=== PATIENT | female | born 1965 | race Caucasian/White ===

== ENCOUNTER 2018-01-07 17:03 | Emergency (ER) | payer OTHER, SELFPAY ==
[2018-01-07] VITALS (23 sets, daily range): BP systolic 142–180; BP diastolic 78–114; PULSE 68–151; RESP 17–37; TEMP 37; O2SAT 88–98
--- NOTE | 2018-01-07 17:16 | DI.RAD_ITS ---
SYMPTOM/DIAGNOSIS: TACHYCARDIA, CHEST PRESSURE PA AND LATERAL CHEST: The heart is normal in size. The lungs are clear. The mediastinal structures and pleura appear intact. CONCLUSION: Normal chest. No evidence of acute cardiopulmonary disease.
[2018-01-07 17:28] LABS: Abs Immature Grans 0.03 k/cumm (0.0-0.09); Absolute Basophil Count 0.01 k/cumm (0.0-0.2); Absolute Eosinophil Count 0.15 k/cumm (0.0-0.7); Absolute Lymphocyte Count 1.85 k/cumm (1.2-3.4); Absolute Monocyte Count 0.59 k/cumm (0.11-0.7); Basophils % 0.1; Eosinophils % 1.9; HCT 41.2 % (36.0-46.0); HGB 14.5 g/dL (12.0-15.5); Immature Grans % 0.4; Mean Corp. HGB Concentration 35.2 g/dL (32.0-36.0); Mean Corpuscular Volume 88.2 fL (80-95); Mean Platelet Volume 9.1 fL (8.0-11.0); Monocytes % 7.3; Neutrophils % 67.3; Platelet Count 236 x1000/uL (130-400); RBC 4.67 m/cumm (4.00-5.20); RBC Distribution Width 13.2 % (11.7-14.6); White Blood Cell Count 8.03 k/cumm (4.4-10.8)
[2018-01-07] MEDS: Normal Saline 1,000 ML 125 ML IV (17:29)
--- NOTE | 2018-01-07 17:29 | W.ED.GENAD ---
Discharge Plan Disposition Patient Disposition: HOME Condition: Serious Discharge Details Chief Complaint: Palpitatns Clinical Impression: Atrial fibrillation Primary Care Provider: Jasmyne Poe ED Provider: Anju You Home Meds and New Rx's Prescriptions: New diltiazem HCl 120 mg capsule,extended release 24 hr 120 mg PO DAILY Qty: 20 RF: 0 Continue magnesium oxide 250 MG tablet 250 mg PO DAILY RF: 0 cholecalciferol (vitamin D3) [Vitamin D3] 2,000 UNIT capsule 2,000 unit PO DAILY RF: 0 jryiguecczbc-lizj-cvseu acid [Daily Multiple] 1 EACH tablet 1 ea PO DAILY RF: 0 melatonin-pyridoxine HCl (B6) 1 EACH tablet 1 ea PO HS RF: 0 levothyroxine 50 MCG tablet 50 mcg PO DAILY Qty: 90 RF: 4 diphenhydramine HCl [Benadryl] 25 MG capsule 25 mg PO HS RF: 0 sertraline 50 MG tablet 50 mg PO DAILY Qty: 90 RF: 0 ibuprofen 800 MG tablet 800 mg PO PRN PRNRF: 0 Discontinued aspirin [Aspir-81] 81 mg Tablet,Delayed Release (Dr/Ec) 81 mg PO DAILY RF: 0 Discharge Instructions Instructions: Atrial Fibrillation (ED) Additional Instructions: Encourage hydration. Take diltiazem as prescribed. Please begin full dose aspirin daily. Please follow-up with primary care tomorrow for referral to cardiology. Keep Zio patch on as instructed by respiratory therapy. If he developed chest pain, shortness of breath, lightheadedness, headache, or other new/worsening symptoms please seek care urgently once again. Referrals: Jasmyne Poe [Primary Care Provider] - Discharge Data Discharge Date/Time-TO BE ENTERED AT DEPARTURE: 01/07/18 19:51 Medical Decision Making <Pablo Ruff MD - Last Filed: 01/07/18 17:56> ECG Data Attestation: I personally reviewed and interpreted this ECG (s) as follows: Prior ECG tracings: not available for review Interpretation: 1st ekg shows undetermined tachycardia, rate of 150, normal axis, nonspecific st t wave changes 2nd ekg shows normal sinus rhythm, normal axis, normal pr, normal qrs and qt and no acute st t wave changes <MOSHE Valdez - Last Filed: 01/08/18 14:38> MDM Narrative Medical decision making narrative: Patient presents today with cc of tachycarida with irregular rhythm as demonstrated on rhythm strip she brings to department. Patient current rate is 151 although while evaluating her this fluctuates widely. EKG was immediately obtained by nrusing staff. REviewed by Dr. Ruff. Patient is resting comfortably, reports that she has no symptoms at this time. States that she can occassionaly experience chest 'heaviness' but has no CP or SOB. Reports that typically she is very active and is able to go up and down multiple flights of stairs without symptoms. However, whe she does have symptoms she reports that she has increased SOB. BP 180/100, patient denies hypertension at baseline. Nursing staff is obtaining IV access. Patient reports taht she has tried vagal maneauvers prior to arrival. Discussed case with Dr. Ruff while reviewing EKG. Difficut to determine a fib vs. SVT. However, on exam, she sounds very irregular making my diagnosis point toward intermittent atrial fibrillation. We discussed treatment options, patient will be given 15mg of Diltiazem. While discussing plan with the patient she briefly came out of the tachy rhythm but it quickly started again. She reports that when she went back into the rhythm, she experienced the chest 'heaviness' once again. While on the monitor she also reports that this symptom seems to be linked with sudden acceleration in rate. Patient received Diltiazem and responded very quickly, is now in a NSR with rate in the 70s. Repeat EKG obtained, reviewed by Dr. Ruff again who advised NSR. Laboratory evaluation without abnormality. Troponin <0.02. No leukocytosis. TSH is elevated, reflexed to free T4 which was within normal range. Discussed with Dr. Ruff, given the length of symptoms, advised no repeat troponin is warranted particularly as she is not experiencing CP and does not typically experience exertional dyspnea. CXR reviewed by radiologist, they advise no acute cardiopulmonary process noted. Discussed findings with the patient. She continues to be in NSR and reports feeling well, has remained asymptomatic. We discussed treatment options as length. She is in agreement with begining oral 120mg of Diltiazem daily. Will place raudel Zio patch for continued monitoring. This was placed by respiratory therapy. Patient was givne 325mg of ASA. We discussed anticoagulation at length. REviewed literature. Used [id number] score which patient scored a 1 for as she is female. Also reviewed HAS-BLED score. Literature reports that with her scores, there is a 0.6 per 100 persons with risk of clot, 1.1 per 100 persons with risk of bleed. We discussed multiple options ranging from full anticoagulation to daily ASA. Also discussed short term anticoagulation until we can ensure rhythm control. She is primarily concerned with bleeding risk and prefers 325mg ASA daily. We discussed risks/benefits of further treatment in length. She is well aware of risks and is able to have good conversation about the different options, prefers to use 325mg of ASA daily. ADvised on new/worsening symptoms and when to seek care urgently once again. PCP in is [facility] which is where she prefers to f/u with cardiology. She will contact PCP tomorrow to request referral for cardiology. She was given strict return precautions. Oral dilt and ASA given prior to discharge. She will continue with nightly dosing. All of her questions and concerns were addressed, she is in agreement wiht this plan. Lab Data Lab Results 01/07/18 Range/Units 17:15 WBC 8.03 (4.4-10.8) k/cumm RBC 4.67 (4.00-5.20) m/cumm Hgb 14.5 (12.0-15.5) g/dL Hct 41.2 (36.0-46.0) % MCV 88.2 (80-95) fL MCH 31.0 (27.0-33.0) pg MCHC 35.2 (32.0-36.0) g/dL RDW 13.2 (11.7-14.6) % Plt Count 236 (130-400) x1000/uL MPV 9.1 (8.0-11.0) fL Immature Gran % 0.4 Neutrophils % 67.3 Lymphocytes % 23.0 Monocytes % 7.3 Eosinophils % 1.9 Basophils % 0.1 Absolute Neutrophils 5.40 (1.2-6.7) k/cumm Absolute Lymphocytes 1.85 (1.2-3.4) k/cumm Absolute Monocytes 0.59 (0.11-0.7) k/cumm Absolute Eosinophils 0.15 (0.0-0.7) k/cumm Absolute Basophils 0.01 (0.0-0.2) k/cumm HPI - General Adult <Pablo Ruff MD - Last Filed: 01/07/18 17:56> General Date/Time Provider Initiated Documentation: 01/07/18 17:06. Related Data Home Medications Medication Instructions Recorded Confirmed ibuprofen 800 mg PO PRN PRN 12/12/13 01/07/18 cholecalciferol (vitamin D3) 2,000 unit PO DAILY 09/05/14 01/07/18 [Vitamin D3] magnesium oxide 250 mg PO DAILY 09/05/14 01/07/18 melatonin-pyridoxine HCl (B6) 1 ea PO HS 09/05/14 01/07/18 yaxzncndiuxf-nbws-akdqf acid 1 ea PO DAILY 09/05/14 01/07/18 [Daily Multiple] levothyroxine 50 mcg PO DAILY #90 tab 10/02/15 01/07/18 diphenhydramine HCl [Benadryl] 25 mg PO HS 12/19/15 01/07/18 Previous Rx's Medication Instructions Recorded sertraline 50 mg PO DAILY #90 tab-cap 10/08/17 diltiazem HCl 120 mg PO DAILY #20 cap 01/07/18 Allergies Allergy/AdvReac Type Severity Reaction Status Date / Time Penicillins Allergy Intermediate Anaphylaxsi Unverified 01/07/18 17:17 s Sulfa (Sulfonamide Allergy Intermediate Skin Rash Unverified 01/07/18 17:17 Antibiotics) <MOSHE Valdez - Last Filed: 01/08/18 14:38> General Mode of arrival: ambulatory. Limitations to Documentation: no limitations. Information obtained by: patient. HPI Narrative: Patient presents today with chief complaint of tachycardia and 'chest heaviness'. States that she has had intermitent episodes of this over the past few months. 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 States that it has woken her at night. Reports that with time it typical self resolves. States that today, while driving, she had a sudden onset of symptoms. Denies palpitations. No CP. Denies SOB at rest or with the heaviness but notes taht she has increased SOB with exertion, such as going up stairs, when her symptoms are present. States that after the onset of symptoms today she returned to work where she preformed a self test rhythm strip and noted a tachy irregular rhythm. States that at this times she is feeling well, completely asymptomatic. States she has had history of 'anxiety' feeling that typically manifest in her chest. Has been tachy in the past which lead her to having cardiac evaluation with echo. Reports that her testing had been negative, it has been several years since her last testing. No history of AL. Reports her only health issue as hypothyroidism. General Stated Complaint: Palpitatns HALEY: 2 <MOSHE Valdez - Last Filed: 01/08/18 14:38> Constitutional Reports as per HPI, Denies chills, Denies fatigue, Denies fever(s), Denies headache(s), Denies malaise and Denies poor appetite ENT Denies headache(s) Cardiovascular Reports as per HPI, Denies chest pain, Denies chest pain at rest, Denies chest pain with activity, Denies diaphoresis, Denies syncope, Reports rapid heart rate, Denies pedal edema, Denies edema, Reports irregular heart rhythm, Denies leg edema, Denies radiating jaw, neck or arm pain, Denies palpitations, Denies dyspnea and Reports dyspnea on exertion Respiratory Denies cough, Denies dyspnea, Reports dyspnea on exertion and Denies wheezing Gastrointestinal Denies change in stool character, Denies nausea and Denies vomiting Musculoskeletal Denies back pain and Denies tingling Integumentary/Breasts Denies rash Neurologic Denies abnormal speech, Denies syncope, Denies headache(s), Denies focal weakness and Denies tingling Endocrine Denies fatigue and Denies palpitations Allergic/Immunologic Denies wheezing <MOSHE Valdez - Last Filed: 01/08/18 14:38> Const General: cooperative, healthy appearing, comfortable, no acute distress, well developed and well groomed Nutritional Appearance: average body habitus and well nourished Orientation: alert and awake HENWI Head: normal to inspection Mouth: moist mucous membranes Chest Chest: normal inspection of the chest, no tenderness and No rash Resp Effort & Inspection: normal respiratory effort, able to speak in complete sentences and no respiratory distress Auscultation: clear to auscultation bilaterally, no rales, no rhonchi and no wheezes Cardio Rate: tachycardic Rhythm: abnormal rhythm irregularly irregular Heart Sounds: S1 normal, S2 normal, no murmurs and no rubs Bruits: no abdominal aortic bruits Pulses: radial pulses present, popliteal pulses present and dorsalis pedis pulses present GI Inspection: normal to inspection Palpation: no guarding, not rigid and nontender Skin General skin exam: no rashes or lesions noted Lesions: no lesions Rashes: no rashes Neuro General: alert and awake Cognition: normal cognition Speech: speech normal Gait: normal gait Extrem General: no pedal edema, no calf tenderness and normal gait Psych Appearance: grossly normal and well kempt Mental Status: mental status grossly normal Speech and Movement: speech and movement normal <MOSHE Valdez - Last Filed: 01/08/18 14:38> Vital Signs Temperature 37.0 C 01/07/18 17:09 Pulse 151 H 01/07/18 17:09 Respiratory Rate 18 01/07/18 17:09 Blood Pressure 180/100 H 01/07/18 17:09 Pulse Oximetry 97 01/07/18 17:09 Temperature 37.0 C 01/07/18 17:09 Pulse 151 H 01/07/18 17:09 Respiratory Rate 18 01/07/18 17:09 Blood Pressure 180/100 H 01/07/18 17:09 Pulse Oximetry 97 01/07/18 17:09 Lab/Test Results Lab/Test Results: Laboratory Tests 01/07/18 17:15 WBC 8.03 RBC 4.67 Hgb 14.5 Hct 41.2 MCV 88.2 MCH 31.0 MCHC 35.2 RDW 13.2 Plt Count 236 MPV 9.1 Immature Gran % 0.4 Neutrophils % 67.3 Lymphocytes % 23.0 Monocytes % 7.3 Eosinophils % 1.9 Basophils % 0.1 Absolute Neutrophils 5.40 Absolute Lymphocytes 1.85 Absolute Monocytes 0.59 Absolute Eosinophils 0.15 Absolute Basophils 0.01 Lab Results 01/07/18 Range/Units 17:15 WBC 8.03 (4.4-10.8) k/cumm RBC 4.67 (4.00-5.20) m/cumm Hgb 14.5 (12.0-15.5) g/dL Hct 41.2 (36.0-46.0) % MCV 88.2 (80-95) fL MCH 31.0 (27.0-33.0) pg MCHC 35.2 (32.0-36.0) g/dL RDW 13.2 (11.7-14.6) % Plt Count 236 (130-400) x1000/uL MPV 9.1 (8.0-11.0) fL Immature Gran % 0.4 Neutrophils % 67.3 Lymphocytes % 23.0 Monocytes % 7.3 Eosinophils % 1.9 Basophils % 0.1 Absolute Neutrophils 5.40 (1.2-6.7) k/cumm Absolute Lymphocytes 1.85 (1.2-3.4) k/cumm Absolute Monocytes 0.59 (0.11-0.7) k/cumm Absolute Eosinophils 0.15 (0.0-0.7) k/cumm Absolute Basophils 0.01 (0.0-0.2) k/cumm <MOSHE Valdez - Last Filed: 01/08/18 14:38> Critical Care Time: Yes Total Critical Care Time: 30 (min)
[2018-01-07 17:49] LABS: ALT 30 U/L (12-78); AST 17 U/L (15-37); Albumin 4.1 g/dL (3.4-5.0); Alkaline Phosphatase 94 U/L (46-116); BUN 18 mg/dL (7-18); Bilirubin, Total 0.4 mg/dL (0.2-1.0); CREATININE 0.61 mg/dL (0.55-1.02); Calcium 8.6 mg/dL (8.5-10.1); Chloride 103 mmol/L (98-107); Glucose 122 mg/dL (70-100); Magnesium 1.9 mg/dL (1.8-2.4); Potassium 3.5 mmol/L (3.5-5.1); Sodium 141 mmol/L (136-145); TSH (W/Ref FT4) 5.76 uIU/mL (0.358-3.74); Total Protein 7.7 g/dL (6.4-8.2); Troponin I < 0.02 ng/mL (0.00-0.06)
--- NOTE | 2018-01-07 17:56 | ED.GENADUL_ITS ---
Discharge Plan Disposition Patient Disposition: HOME Condition: Serious Discharge Details Chief Complaint: Palpitatns Clinical Impression: Atrial fibrillation Primary Care Provider: Jasmyne Poe ED Provider: Anju You Home Meds and New Rx's Prescriptions: New diltiazem HCl 120 mg capsule,extended release 24 hr 120 mg PO DAILY Qty: 20 RF: 0 Continue magnesium oxide 250 MG tablet 250 mg PO DAILY RF: 0 cholecalciferol (vitamin D3) [Vitamin D3] 2,000 UNIT capsule 2,000 unit PO DAILY RF: 0 znqethuzevxw-umiy-jvtzb acid [Daily Multiple] 1 EACH tablet 1 ea PO DAILY RF: 0 melatonin-pyridoxine HCl (B6) 1 EACH tablet 1 ea PO HS RF: 0 levothyroxine 50 MCG tablet 50 mcg PO DAILY Qty: 90 RF: 4 diphenhydramine HCl [Benadryl] 25 MG capsule 25 mg PO HS RF: 0 sertraline 50 MG tablet 50 mg PO DAILY Qty: 90 RF: 0 ibuprofen 800 MG tablet 800 mg PO PRN PRNRF: 0 Discontinued aspirin [Aspir-81] 81 mg Tablet,Delayed Release (Dr/Ec) 81 mg PO DAILY RF: 0 Discharge Instructions Instructions: Atrial Fibrillation (ED) Additional Instructions: Encourage hydration. Take diltiazem as prescribed. Please begin full dose aspirin daily. Please follow-up with primary care tomorrow for referral to cardiology. Keep Zio patch on as instructed by respiratory therapy. If he developed chest pain, shortness of breath, lightheadedness, headache, or other new/worsening symptoms please seek care urgently once again. Referrals: Jasmyne Poe [Primary Care Provider] - Discharge Data Discharge Date/Time-TO BE ENTERED AT DEPARTURE: 01/07/18 19:51 Medical Decision Making <Pablo Ruff MD - Last Filed: 01/07/18 17:56> ECG Data Attestation: I personally reviewed and interpreted this ECG (s) as follows: Prior ECG tracings: not available for review Interpretation: 1st ekg shows undetermined tachycardia, rate of 150, normal axis , nonspecific st t wave changes 2nd ekg shows normal sinus rhythm, normal axis, normal pr, normal qrs and qt and no acute st t wave changes <MOSHE Valdez - Last Filed: 01/08/18 14:38> MDM Narrative Medical decision making narrative: Patient presents today with cc of tachycarida with irregular rhythm as demonstrated on rhythm strip she brings to department. Patient current rate is 151 although while evaluating her this fluctuates widely. EKG was immediately obtained by nrusing staff. REviewed by Dr. Ruff. Patient is resting comfortably, reports that she has no symptoms at this time. States that she can occassionaly experience chest 'heaviness' but has no CP or SOB. Reports that typically she is very active and is able to go up and down multiple flights of stairs without symptoms. However, whe she does have symptoms she reports that she has increased SOB. BP 180/100, patient denies hypertension at baseline. Nursing staff is obtaining IV access. Patient reports taht she has tried vagal maneauvers prior to arrival. Discussed case with Dr. Ruff while reviewing EKG. Difficut to determine a fib vs. SVT. However, on exam, she sounds very irregular making my diagnosis point toward intermittent atrial fibrillation. We discussed treatment options, patient will be given 15mg of Diltiazem. While discussing plan with the patient she briefly came out of the tachy rhythm but it quickly started again. She reports that when she went back into the rhythm, she experienced the chest 'heaviness' once again. While on the monitor she also reports that this symptom seems to be linked with sudden acceleration in rate. Patient received Diltiazem and responded very quickly, is now in a NSR with rate in the 70s. Repeat EKG obtained, reviewed by Dr. Ruff again who advised NSR. Laboratory evaluation without abnormality. Troponin <0.02. No leukocytosis. TSH is elevated, reflexed to free T4 which was within normal range. Discussed with Dr. Ruff, given the length of symptoms, advised no repeat troponin is warranted particularly as she is not experiencing CP and does not typically experience exertional dyspnea. CXR reviewed by radiologist, they advise no acute cardiopulmonary process noted. Discussed findings with the patient. She continues to be in NSR and reports feeling well, has remained asymptomatic. We discussed treatment options as length. She is in agreement with begining oral 120mg of Diltiazem daily. Will place raudel Zio patch for continued monitoring. This was placed by respiratory therapy. Patient was givne 325mg of ASA. We discussed anticoagulation at length. REviewed literature. Used [id number] score which patient scored a 1 for as she is female. Also reviewed HAS-BLED score. Literature reports that with her scores, there is a 0.6 per 100 persons with risk of clot, 1.1 per 100 persons with risk of bleed. We discussed multiple options ranging from full anticoagulation to daily ASA. Also discussed short term anticoagulation until we can ensure rhythm control. She is primarily concerned with bleeding risk and prefers 325mg ASA daily. We discussed risks/benefits of further treatment in length. She is well aware of risks and is able to have good conversation about the different options, prefers to use 325mg of ASA daily. ADvised on new/worsening symptoms and when to seek care urgently once again. PCP in is [facility] which is where she prefers to f /u with cardiology. She will contact PCP tomorrow to request referral for cardiology. She was given strict return precautions. Oral dilt and ASA given prior to discharge. She will continue with nightly dosing. All of her questions and concerns were addressed, she is in agreement wiht this plan. Lab Data Lab Results 01/07/18 Range/Units 17:15 WBC 8.03 (4.4-10.8) k/cumm RBC 4.67 (4.00-5.20) m/cumm Hgb 14.5 (12.0-15.5) g/dL Hct 41.2 (36.0-46.0) % MCV 88.2 (80-95) fL MCH 31.0 (27.0-33.0) pg MCHC 35.2 (32.0-36.0) g/dL RDW 13.2 (11.7-14.6) % Plt Count 236 (130-400) x1000/uL MPV 9.1 (8.0-11.0) fL Immature Gran % 0.4 Neutrophils % 67.3 Lymphocytes % 23.0 Monocytes % 7.3 Eosinophils % 1.9 Basophils % 0.1 Absolute Neutrophils 5.40 (1.2-6.7) k/cumm Absolute Lymphocytes 1.85 (1.2-3.4) k/cumm Absolute Monocytes 0.59 (0.11-0.7) k/cumm Absolute Eosinophils 0.15 (0.0-0.7) k/cumm Absolute Basophils 0.01 (0.0-0.2) k/cumm HPI - General Adult <Pablo Ruff MD - Last Filed: 01/07/18 17:56> General Date/Time Provider Initiated Documentation: 01/07/18 17:06 . Related Data Home Medications Medication Instructions Recorded Confirmed ibuprofen 800 mg PO PRN PRN 12/12/13 01/07/18 cholecalciferol (vitamin D3) 2,000 unit PO DAILY 09/05/14 01/07/18 [Vitamin D3] magnesium oxide 250 mg PO DAILY 09/05/14 01/07/18 melatonin-pyridoxine HCl (B6) 1 ea PO HS 09/05/14 01/07/18 zorcnyhekrqg-zrad-mvtka acid 1 ea PO DAILY 09/05/14 01/07/18 [Daily Multiple] levothyroxine 50 mcg PO DAILY #90 tab 10/02/15 01/07/18 diphenhydramine HCl [Benadryl] 25 mg PO HS 12/19/15 01/07/18 Previous Rx's Medication Instructions Recorded sertraline 50 mg PO DAILY #90 tab-cap 10/08/17 diltiazem HCl 120 mg PO DAILY #20 cap 01/07/18 Allergies Allergy/AdvReac Type Severity Reaction Status Date / Time Penicillins Allergy Intermediate Anaphylaxsi Unverified 01/07/18 17:17 s Sulfa (Sulfonamide Allergy Intermediate Skin Rash Unverified 01/07/18 17:17 Antibiotics) <MOSHE Valdez - Last Filed: 01/08/18 14:38> General Mode of arrival: ambulatory . Limitations to Documentation: no limitations . Information obtained by: patient . HPI Narrative: Patient presents today with chief complaint of tachycardia and ' chest heaviness'. States that she has had intermitent episodes of this over the past few months. 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 States that it has woken her at night. Reports that with time it typical self resolves. States that today, while driving, she had a sudden onset of symptoms. Denies palpitations. No CP. Denies SOB at rest or with the heaviness but notes taht she has increased SOB with exertion, such as going up stairs, when her symptoms are present. States that after the onset of symptoms today she returned to work where she preformed a self test rhythm strip and noted a tachy irregular rhythm. States that at this times she is feeling well, completely asymptomatic. States she has had history of 'anxiety' feeling that typically manifest in her chest. Has been tachy in the past which lead her to having cardiac evaluation with echo. Reports that her testing had been negative, it has been several years since her last testing. No history of MT. Reports her only health issue as hypothyroidism. General Stated Complaint: Palpitatns HALEY: 2 <MOSHE Valdez - Last Filed: 01/08/18 14:38> Constitutional Reports as per HPI, Denies chills, Denies fatigue, Denies fever(s), Denies headache(s), Denies malaise and Denies poor appetite ENT Denies headache(s) Cardiovascular Reports as per HPI, Denies chest pain, Denies chest pain at rest, Denies chest pain with activity, Denies diaphoresis, Denies syncope, Reports rapid heart rate , Denies pedal edema, Denies edema, Reports irregular heart rhythm, Denies leg edema, Denies radiating jaw, neck or arm pain, Denies palpitations, Denies dyspnea and Reports dyspnea on exertion Respiratory Denies cough, Denies dyspnea, Reports dyspnea on exertion and Denies wheezing Gastrointestinal Denies change in stool character, Denies nausea and Denies vomiting Musculoskeletal Denies back pain and Denies tingling Integumentary/Breasts Denies rash Neurologic Denies abnormal speech, Denies syncope, Denies headache(s), Denies focal weakness and Denies tingling Endocrine Denies fatigue and Denies palpitations Allergic/Immunologic Denies wheezing <MOSHE Valdez - Last Filed: 01/08/18 14:38> Const General: cooperative, healthy appearing, comfortable, no acute distress, well developed and well groomed Nutritional Appearance: average body habitus and well nourished Orientation: alert and awake HENCT Head: normal to inspection Mouth: moist mucous membranes Chest Chest: normal inspection of the chest, no tenderness and No rash Resp Effort & Inspection: normal respiratory effort, able to speak in complete sentences and no respiratory distress Auscultation: clear to auscultation bilaterally, no rales, no rhonchi and no wheezes Cardio Rate: tachycardic Rhythm: abnormal rhythm irregularly irregular Heart Sounds: S1 normal, S2 normal, no murmurs and no rubs Bruits: no abdominal aortic bruits Pulses: radial pulses present, popliteal pulses present and dorsalis pedis pulses present GI Inspection: normal to inspection Palpation: no guarding, not rigid and nontender Skin General skin exam: no rashes or lesions noted Lesions: no lesions Rashes: no rashes Neuro General: alert and awake Cognition: normal cognition Speech: speech normal Gait: normal gait Extrem General: no pedal edema, no calf tenderness and normal gait Psych Appearance: grossly normal and well kempt Mental Status: mental status grossly normal Speech and Movement: speech and movement normal <MOSHE Valdez - Last Filed: 01/08/18 14:38> Vital Signs Temperature 37.0 C 01/07/18 17:09 Pulse 151 H 01/07/18 17:09 Respiratory Rate 18 01/07/18 17:09 Blood Pressure 180/100 H 01/07/18 17:09 Pulse Oximetry 97 01/07/18 17:09 Temperature 37.0 C 01/07/18 17:09 Pulse 151 H 01/07/18 17:09 Respiratory Rate 18 01/07/18 17:09 Blood Pressure 180/100 H 01/07/18 17:09 Pulse Oximetry 97 01/07/18 17:09 Lab/Test Results Lab/Test Results: Laboratory Tests 01/07/18 17:15 WBC 8.03 RBC 4.67 Hgb 14.5 Hct 41.2 MCV 88.2 MCH 31.0 MCHC 35.2 RDW 13.2 Plt Count 236 MPV 9.1 Immature Gran % 0.4 Neutrophils % 67.3 Lymphocytes % 23.0 Monocytes % 7.3 Eosinophils % 1.9 Basophils % 0.1 Absolute Neutrophils 5.40 Absolute Lymphocytes 1.85 Absolute Monocytes 0.59 Absolute Eosinophils 0.15 Absolute Basophils 0.01 Lab Results 01/07/18 Range/Units 17:15 WBC 8.03 (4.4-10.8) k/cumm RBC 4.67 (4.00-5.20) m/cumm Hgb 14.5 (12.0-15.5) g/dL Hct 41.2 (36.0-46.0) % MCV 88.2 (80-95) fL MCH 31.0 (27.0-33.0) pg MCHC 35.2 (32.0-36.0) g/dL RDW 13.2 (11.7-14.6) % Plt Count 236 (130-400) x1000/uL MPV 9.1 (8.0-11.0) fL Immature Gran % 0.4 Neutrophils % 67.3 Lymphocytes % 23.0 Monocytes % 7.3 Eosinophils % 1.9 Basophils % 0.1 Absolute Neutrophils 5.40 (1.2-6.7) k/cumm Absolute Lymphocytes 1.85 (1.2-3.4) k/cumm Absolute Monocytes 0.59 (0.11-0.7) k/cumm Absolute Eosinophils 0.15 (0.0-0.7) k/cumm Absolute Basophils 0.01 (0.0-0.2) k/cumm <MOSHE Valdez - Last Filed: 01/08/18 14:38> Critical Care Time: Yes Total Critical Care Time: 30 (min)
[2018-01-07 18:04] LABS: INR 1.1 (1.0-3.5)
[2018-01-07 18:07] LABS: FREE T4 0.87 ng/dL (0.76-1.46)
--- NOTE | 2018-01-07 18:30 | DI.VRAD_ITS ---
EXAM: XR Chest, 2 Views EXAM DATE/TIME: 01/07/2018 5:18 PM CLINICAL HISTORY: 52 years old, female; Pain; Chest pain TECHNIQUE: XR of the chest, 2 views. COMPARISON: CR CHEST 2 VIEWS PA,LAT 06/18/2016 12:45 PM FINDINGS: Lungs: Unremarkable. No consolidation. Pleural space: Unremarkable. No pleural effusion. No pneumothorax. Heart/Mediastinum: Unremarkable. No cardiomegaly. Bones/joints: Minimal anterior marginal spurring is seen throughout the thoracic vertebrae. IMPRESSION: No acute pulmonary disease or acute thoracic findings are detected. Dictated and Authenticated by: Joshua Mclaughlin MD. Ordering:AALIYAH CARRASQUILLO MD
[2018-01-07 18:31] LABS: D-Dimer 321 ng/mlFEU (<500)
[2018-01-07] MEDS: Aspirin 325 MG TAB PO (19:54)
--- NOTE | 2018-02-02 12:25 | ZIOP_ITS ---
CARDIAC - ZIO PATCH MONITOR DATE OF DICTATION 02/02/[address] 12 days, 21 hours, January 07 - January 20, 2018 INTERPRETATION Baseline rhythm sinus. Rare single PAC. Atrial fibrillation noted on 3% of this recording with heart rates 54-160 beats per minute while in atrial fibrillation, average 75 beats per minute. Longest burst atrial fibrillation: 3 hours 49 minutes with an average rate 75 beats per minute. Rare single PVC. No VT. No bradycardia or block. SYMPTOMS 22 triggered events all during sinus rhythm +/- single PAC/ PVC or atrial fibrillation +/- PAC. Two symptomatic episodes described. Symptoms of skipping or irregular heartbeat noted once during sin us rhythm 57 beats per minute, and once during atrial fibrillation 61 - 85 beats per minute. Average heart rate sinus 67 beats per minute, range 46-116 beats per minute. Pablo Miranda M.D. LILLIAN/dunia T - 02/02/2018
== END 2018-01-07 19:51 | disposition home or self-care (01) ==
PROVIDERS: Emergency Provider Physician Assistant; PCP Internal Medicine
DX: I48.91 Unspecified atrial fibrillation (principal)
CPT/HCPCS: 36415; 80053; 93005; 93225; 96374; 99285; 71046; 83735; 84439; 84443; 84484; 85025; 85379; 85610; 85730; 93010

== ENCOUNTER 2018-02-19 09:57 | Outpatient (RCR) | payer OTHER, SELFPAY ==
[2018-02-19 10:40] LABS: Hemoglobin A1C 5.8 % (4.5-6.2)
[2018-02-19 10:45] LABS: Anion Gap 9.4 mmol/L (3-11); BUN 16 mg/dL (7-18); CO2 26.6 mmol/L (21.0-32.0); CREATININE 0.67 mg/dL (0.55-1.02); Calcium 8.8 mg/dL (8.5-10.1); Chloride 101 mmol/L (98-107); Glucose 120 mg/dL (70-100); Potassium 3.8 mmol/L (3.5-5.1); Sodium 137 mmol/L (136-145)
[2018-02-19 17:23] LABS: Magnesium 2.2 mg/dL (1.8-2.4)
== END 2018-03-20 23:59 | disposition home or self-care (01) ==
LOC: INF 09:57
PROVIDERS: PCP Internal Medicine; Visit Provider Internal Medicine
DX: I48.0 Paroxysmal atrial fibrillation (principal); R73.9 Hyperglycemia, unspecified
CPT/HCPCS: 36415; 80048; 83036; 83735; 84443

== ENCOUNTER 2018-03-19 13:55 | Outpatient (CLI) | payer OTHER, SELFPAY | END 2018-03-19 14:15 | PROVIDERS: PCP Internal Medicine | DX: R93.1 Abnormal findings on diagnostic imaging of heart and coronary circulation (principal); I48.0 Paroxysmal atrial fibrillation | CPT/HCPCS: 94010 ==

== ENCOUNTER 2018-05-22 07:50 | Outpatient (RCR) | payer SELFPAY ==
[2018-05-22 08:42] LABS: Cholesterol 204 mg/dL (50-200); HDL Cholesterol 43 mg/dL (40-60); LDL CHOLESTEROL 136 mg/dL (<100); Triglyceride 93 mg/dL (30-150)
== END 2018-06-18 23:59 | disposition home or self-care (01) ==
LOC: INF 07:50
PROVIDERS: PCP Internal Medicine; Visit Provider Internal Medicine
DX: Z00.00 Encounter for general adult medical examination without abnormal findings (principal)
CPT/HCPCS: 36415; 80061; 83721

== ENCOUNTER 2018-06-24 13:47 | Outpatient (CLI) | payer SELFPAY ==
--- NOTE | 2018-06-24 13:41 | DI.RAD_ITS ---
SYMPTOMS/DIAGNOSIS: LEFT KNEE PAIN, KNOWN LEFT DJD LEFT KNEE: Two views. There is mild narrowing in the medial femorotibial joint space. There is periarticular spurring involving all three joint compartments, particularly the patellofemoral joint. No acute fracture or dislocation is seen. The soft tissues are grossly unremarkable. IMPRESSION: Mild to moderate osteoarthritis of the left knee. LEG LENGTH EXAMINATION: Routine examination was performed. In the right knee, there is periarticular spurring seen both medially and laterally. There is mild narrowing in the medial joint space. In the left knee, there is moderate narrowing in the medial femorotibial joint space with subchondral sclerosis. Periarticular spurring is seen both medially and laterally. The right lower extremity measures 94.7 cm, the left lower extremity measures 93.8 cm.
== END 2018-06-24 14:07 ==
PROVIDERS: PCP Internal Medicine; Visit Provider Physician Assistant
DX: M25.562 Pain in left knee (principal); M17.12 Unilateral primary osteoarthritis, left knee; M21.70 Unequal limb length (acquired), unspecified site
CPT/HCPCS: 73560; 77073

== ENCOUNTER 2018-12-11 09:37 | Outpatient (RCR) | payer BC, SELFPAY ==
[2018-12-11 10:24] LABS: Abs Immature Grans 0.03 k/cumm (0.0-0.09); Absolute Basophil Count 0.02 k/cumm (0.0-0.2); Absolute Eosinophil Count 0.13 k/cumm (0.0-0.7); Absolute Lymphocyte Count 1.49 k/cumm (1.2-3.4); Absolute Monocyte Count 0.37 k/cumm (0.11-0.7); Absolute Neutrophil Count 4.46 k/cumm (1.2-6.7); Basophils % 0.3; HCT 40.7 % (36.0-46.0); HGB 13.9 g/dL (12.0-15.5); Immature Grans % 0.5; Lymphocytes % 22.9; Mean Corp. HGB Concentration 34.2 g/dL (32.0-36.0); Mean Corpuscular Volume 87.9 fL (80-95); Mean Platelet Volume 9.4 fL (8.0-11.0); Monocytes % 5.7; Neutrophils % 68.6; Platelet Count 287 x1000/uL (130-400); RBC 4.63 m/cumm (4.00-5.20)
[2018-12-11 10:42] LABS: C-Reactive Protein 1.18 mg/dL (0.0-0.3); TSH (W/Ref FT4) 2.19 uIU/mL (0.36-3.74)
[2018-12-11 10:48] LABS: Hemoglobin A1C 6.3 % (4.5-6.2)
[2018-12-14 11:48] LABS: Lyme Ab w Rflx to Lyme Confirm Negative
[2018-12-15 14:18] LABS: ANA Interpretation Positive (NEGAT); ANA Titer Pattern SEE COMMENTS; ANA Titer Pattern 2 SEE COMMENTS
== END 2018-12-19 23:59 | disposition home or self-care (01) ==
LOC: INF 09:37
PROVIDERS: PCP Internal Medicine; Visit Provider Internal Medicine
DX: S91.302A Unspecified open wound, left foot, initial encounter (principal); R53.83 Other fatigue; M25.50 Pain in unspecified joint
CPT/HCPCS: 36415; 83036; 84443; 85025; 86038; 86140; 86618

== ENCOUNTER 2019-01-05 08:43 | Outpatient (RCR) | payer BC, SELFPAY ==
[2019-01-05 10:07] LABS: Bilirubin Negative (Negative); Blood Negative (Negative); Clarity Clear (Clear); Glucose Negative (Negative); Ketones Negative (Negative); Leukocyte Esterase Negative (Negative); Nitrite Negative (Negative); Specific Gravity 1.015 (1.005-1.025); Urobilinogen 0.2 EU/dL (Up TO 0.2)
[2019-01-06 10:12] LABS: Cyclic Citrullinated Peptide <2.5 U/mL (<5.0)
[2019-01-06 11:38] LABS: Rheumatoid Factor <8 IU/mL (<12.5)
[2019-01-07 12:11] LABS: RNP Ab, IgG 1.6 Units (<20); SS-A Antibody 1.5 Units (<20); Sm (Smith) Ab, IgG 2.4 Units (<20)
[2019-01-07 12:34] LABS: dsDNA Ab, IgG 38.3 IU/mL (<30)
== END 2019-01-18 23:59 | disposition home or self-care (01) ==
LOC: INF 08:43
PROVIDERS: PCP Internal Medicine; Visit Provider Internal Medicine
DX: M79.10 Myalgia, unspecified site (principal); M25.50 Pain in unspecified joint; R76.8 Other specified abnormal immunological findings in serum
CPT/HCPCS: 36415; 86200; 81003; 86225; 86235; 86431

== ENCOUNTER 2019-03-01 12:02 | Outpatient (RCR) | payer BC, SELFPAY | END 2019-03-20 23:59 | disposition home or self-care (01) | LOC: INF 12:02 | PROVIDERS: PCP Internal Medicine; Visit Provider Nurse Practitioner Family | DX: N93.9 Abnormal uterine and vaginal bleeding, unspecified (principal) | CPT/HCPCS: 36415; 84443 ==

== ENCOUNTER 2019-03-04 09:52 | Outpatient (REF) | payer BC, SELFPAY ==
--- NOTE | 2019-03-04 09:10 | PAPFT_PTH ---
PATIENT: Kirstne Almaguer LOC: [facility] U#:[id number] AGE/SX: 53/F ROOM: RE03/04/[address]: SHADIA Palmer : 1965 BED: DIS: 03/04/2019 SPEC #: [id number] RECD: 03/04/19 12:36 STATUS: JIMI REGuero #: [id number] JASON: 03/04/19 09:[address]: Adri Levy [facility]PT[facility] Cytology RECD BY: Cindy Albert ENTERED: 03/04/19 12:36 SP TYPE: PAPFT OTHR DR: Jasmyne Poe Tissues: 1 - CX/ENDOCX FOR PAP SMEARS Procedures: PAP THIN PREP/UVM Screening HPV DNA PROBE Comments: [id number]
== END 2019-03-04 10:12 ==
LOC: LBN 09:52
PROVIDERS: PCP Internal Medicine; Visit Provider Nurse Practitioner Family
DX: Z12.4 Encounter for screening for malignant neoplasm of cervix (principal); Z11.51 Encounter for screening for human papillomavirus (HPV)
CPT/HCPCS: 88142; 87624

== ENCOUNTER 2019-03-05 01:03 | Outpatient (CLI) | payer BC, SELFPAY ==
--- NOTE | 2019-03-05 13:07 | DI.US_ITS ---
EXAM: US PELVIS TRANSVAGINAL CLINICAL HISTORY: abnormal bleeding, N93.9 TECHNIQUE: Ultrasound performed using standard protocol. COMPARISON: RENAL COLIC WO CONTRAST from 10/28/2016 FINDINGS: Transabdominal and transvaginal exams were performed. The uterus is enlarged with multiple fibroids. The uterus measures 10.7 x 8.0 x 8.7 cm. A 3.5 centim eter fibroid is seen near the fundus. A 4.2 cm fibroid is seen in the posterior myometrium. Endomet rial stripe appears thickened at 15 mm. No focal endometrial abnormality is seen. The left ovary wa s unable to be visualized. The right ovary is normal in size. There is a mildly prominent extrarena l pelvis which appears unchanged from the previous CT. IMPRESSION: Enlarged uterus with multiple fibroids. Thickened endometrium. Nonvisualization of the left ovary.
== END 2019-03-05 01:23 ==
PROVIDERS: PCP Internal Medicine; Visit Provider Nurse Practitioner Family
DX: N93.9 Abnormal uterine and vaginal bleeding, unspecified (principal); N85.2 Hypertrophy of uterus; D25.9 Leiomyoma of uterus, unspecified; R93.89 Abnormal findings on diagnostic imaging of other specified body structures
CPT/HCPCS: 76830; 76856

== ENCOUNTER 2019-05-04 16:35 | Outpatient (REF) | payer OTHER, SELFPAY ==
--- NOTE | 2019-05-04 16:00 | ENDOMET_PTH ---
PATIENT: Kirsten Almaguer LOC: [facility] U#:[id number] AGE/SX: 54/F ROOM: RE05/04/[address]: Jasmyne Calvin : 1965 BED: DIS: 05/04/2019 SPEC #: [id number] RECD: 05/04/19 17:01 STATUS: JIMI REGuero #: [id number] JASON: 05/04/19 16:[address]: Jasmyne Calvin DEPT: Surgical Specimen RECD BY: Cindy Albert ENTERED: 05/04/19 17:01 SP TYPE: Endomet OTHR DR: Jasmyne Poe Tissues: 1 - ENDOMETRIUM BX/KIRTIETTE Procedures: GROSS AND MICRO LEVEL 4 Comments: [id number]
== END 2019-05-04 16:55 ==
LOC: LBN 16:35
PROVIDERS: PCP Internal Medicine; Visit Provider Obstetrics & Gynecology Gynecology
DX: N84.0 Polyp of corpus uteri (principal); N85.01 Benign endometrial hyperplasia; N83.8 Other noninflammatory disorders of ovary, fallopian tube and broad ligament; N93.9 Abnormal uterine and vaginal bleeding, unspecified
CPT/HCPCS: 88305

== ENCOUNTER 2019-05-21 05:11 | Outpatient (RCR) | payer OTHER, SELFPAY ==
[2019-05-21 08:04] LABS: ALT 25 U/L (14-59); AST 11 U/L (15-37); Alkaline Phosphatase 77 U/L (46-116); Anion Gap 4.9 mmol/L (3-11); BUN 18 mg/dL (7-18); Bilirubin, Total 0.4 mg/dL (0.2-1.0); CO2 31.1 mmol/L (21.0-32.0); CREATININE 0.62 mg/dL (0.55-1.02); Calcium 8.5 mg/dL (8.5-10.1); Calculated LDL 143 mg/dL (<100); Chloride 107 mmol/L (98-107); Cholesterol 204 mg/dL (<200); Glucose 149 mg/dL (74-106); HDL Cholesterol 40 mg/dL (40-60); Potassium 3.9 mmol/L (3.5-5.1); Sodium 143 mmol/L (136-145); TSH 2.35 uIU/mL (0.36-3.74); Triglyceride 106 mg/dL (<150)
[2019-05-21 08:06] LABS: Hemoglobin A1C 6.5 % (3.8-5.6)
== END 2019-05-21 23:59 | disposition home or self-care (01) ==
LOC: INF 05:11
PROVIDERS: PCP Internal Medicine; Visit Provider Internal Medicine
DX: Z00.00 Encounter for general adult medical examination without abnormal findings (principal)
CPT/HCPCS: 36415; 80053; 80061; 83036; 84443

== ENCOUNTER 2019-11-19 04:30 | Outpatient (RCR) | payer OTHER, SELFPAY ==
[2019-11-19 07:50] LABS: Calculated LDL 108 mg/dL (<100); Cholesterol 167 mg/dL (<200); HDL Cholesterol 40 mg/dL (40-60); Triglyceride 95 mg/dL (<150)
[2019-11-19 08:43] LABS: Hemoglobin A1C 5.9 % (3.8-5.6)
== END 2019-11-19 23:59 | disposition home or self-care (01) ==
LOC: INF 04:30
PROVIDERS: PCP Internal Medicine; Visit Provider Internal Medicine
DX: R73.03 Prediabetes (principal)
CPT/HCPCS: 36415; 80061; 83036

== ENCOUNTER 2019-12-29 15:14 | Outpatient (CLI) | payer OTHER, SELFPAY | END 2019-12-29 15:34 | PROVIDERS: PCP Internal Medicine; Visit Provider Internal Medicine | DX: I48.0 Paroxysmal atrial fibrillation (principal) | CPT/HCPCS: 93225 ==

== ENCOUNTER 2019-12-31 15:53 | Outpatient (CLI) | payer OTHER, SELFPAY ==
--- NOTE | 2020-01-03 08:31 | W.HOLTRPT ---
Date of service: 01/03/20 Time of Service: 08:31 Holter Monitor Report Referring Provider:: Lui Indications:: PAF Holter Monitor Note: This is a 48-hour Holter monitor ordered for indication of paroxysmal atrial fibrillation. ?The patient was in normal sinus rhythm for the majority of the recording with average heart rate of 64 bpm. ?The patient had one episode of atrial fibrillation which lasted 15 hours with a maximum heart rate of 75 bpm. Atrial fibrillation was present for 30% of the entire recording. ?There were no episodes of ventricular tachycardia and rare PVCs. ?There were no episodes of high degree heart block or pauses greater than 3 seconds.
== END 2019-12-31 16:13 ==
PROVIDERS: PCP Internal Medicine; Visit Provider Internal Medicine
DX: I48.0 Paroxysmal atrial fibrillation (principal)
CPT/HCPCS: 93226

== ENCOUNTER 2020-03-14 01:52 | Outpatient (CLI) | payer OTHER, SELFPAY ==
--- NOTE | 2020-03-14 15:00 | DI.CT_ITS ---
EXAM: CT CHEST HIGH RESOLUTION CLINICAL HISTORY: UNDIFFERENTIATED CONN TISSUE DISEASE,WITH SX OF LUPUS,? INTER DISEASE. TECHNIQUE: Imaging protocol: Axial computed tomography images were obtained and coronal and sagittal reformatted images were created and reviewed. 1 millimeter high-resolution images were performed in inspiration and expiration. COMPARISON: CR XR CHEST 2V PA LATERAL from 01/07/2018 FINDINGS: Tracheobronchial tree: No bronchiectasis. No mucous plugging. Mediastinum and Kassandra: No dominant adenopathy or fluid collection. Pulmonary parenchyma: No consolidation or dominant measurable mass. No interstitial changes are seen. There are no pulmonary nodules. There is no air trapping or emphysematous changes. Pleura: No eff usion or pneumothorax. Heart: The heart is not dilated. No coronary artery calcifications are seen. Aorta: Thoracic aorta non-dilated. Minimal calcification at the arch. Upper abdomen: Unremarkable. Lymph nodes: Within normal limits. Bones:Endplate osteophytes in the thoracic spine. No compression fractures. Tubes, Catheters, and Lines: None IMPRESSION: Normal CT of the Chest without Contrast. No evidence of interstitial disease. RADIATION DOSE DELIVERED: 608.38mGy.cm Total DLP DATA REPOSITORY: All CT scans at this facility are submitted to the National Radiology Data Registry (NRDR) Dose Index Registry (DIR) with the [employer] (ACR). RADIATION OPTIMIZATION: All CT scans at this facility use at least one of these dose optimization te chniques: automated exposure control; mA and/or kV adjustment per patient size (includes targeted exa ms where dose is matched to clinical indication); or iterative reconstruction.
== END 2020-03-14 02:12 ==
PROVIDERS: PCP Internal Medicine; Visit Provider Nurse Practitioner Family
DX: M35.9 Systemic involvement of connective tissue, unspecified (principal)
CPT/HCPCS: 71250

== ENCOUNTER 2020-05-11 09:59 | Outpatient (RCR) | payer OTHER, SELFPAY ==
--- OUTSIDE RECORDS SUMMARY | 2020-05-11 10:01 | XMS_ITS | Encounter Summary ---
:1965 Author Care Team Providers Name Role Phone Jasmyne Poe MD Primary Care Provider [phone] [facility] Refractive Surgeon [phone] Reason for Visit Phone Call Visit Assessment and Plan 1. Snoring Kirsten has symptoms of mild snoring, nocturnal dyspnea, nocturia and night sweats which may be indicative of an underlying sleep apnea. She has a-fib and may be pursuing an ablation but her manager product marketing first wanted to evaluate f or obstructive sleep apnea and treat if present to see if this improves her a-fib. I discussed the pathophysiology of obstructive sleep apnea and the potential co nsequences of untreated RAJ including ho w it relates to her symptoms and comorbidities. I ordered a polysomnogram and discussed what will take place the night of the sleep study. She is prescribed Ambie n to take if needed for the study and e is advised that Ambien may be offered the night of the study and if taken she will need to not drive for at least eight hours after taking or longer if for any residual drowsiness. Also will need to u se caution when getting up at night after taking Ambien. I will see her back to review the results as soon as they are available. I provided greater than 40 minutes in e care of this patient, more than half the time was spent in [id number] counseling. ? sleep study, baseline diag nostic polysomnogram ? zolpidem 5 mg tablet 2. Restless legs Occurs nightly when watching T V but goes away when she gets into bed and lays on her side so it is not interferin g with her sleep except on very rare occasions. Last caffeine is at 6 am. She is not on any medications that would cause or worsen these symptoms. She has not garza d a ferritin level checked. Will check a ferritin level and recommend iron supple mentation with vitamin C if this is less than 75 as low ferritin may cause RLS. She ma y have PLMS contributing to her restless sleep and tossing and turning at night. Will get PSG for further evaluation. 3. Pain in right knee ? ferritin, serum or plasma Discussion Note: None recorded.Patient educational handouts: No information available. Plan of Care Reminders Provider Appointments Return to on or around Miguel Pascal, Office 07/07/2020 [employer] Ferritin, 05/10/2020 [facility] Serum or Plasma Referral None ? ? recorded. Procedures None ? ? recorded. Surgeries None ? ? recorded. Imaging None ? ? recorded. Medications Name Start Date ? ? Baby Aspirin 81 mg chewable tablet ? Chew 1 tablet every day by oral route. diltiazem 30 mg tablet ? PRN diltiazem ER 240 mg capsule,24 hr,extended release ? L-Methylfolate 15 mg tablet ? Take 1 mg by oral route. levothyroxine 50 mcg tablet ? magnesium ? 500 melatonin ? 6mg vitamin B complex ? Vitamin D3 ? [id number] u zolpidem 5 mg tablet ? Take 1-2 PO night of sleep study if needed Medications Administered None recorded. Vitals Height Weight BMI 5 ft 9 in 174 lbs 25.7 kg/m2 Results Lab Results None recorded. Allergies Code Code System Name Reaction Severity Onset Penicillins Anaphylaxis Severe ? Sulfa (Sulfonamide ? ? ? Antibiotics) Problems Name Status Onset Date Source ? Hypothyroidism Active 05/10/2020 ? Obesity Active 05/10/2020 ? Anxiety Active 05/10/2020 ? Restless Legs Active 05/10/2020 ? Aortic Valve Stenosis Active 05/10/2020 ? Atrial Fibrillation Active 05/10/2020 ? Osteoarthritis Active 05/10/2020 ? Muscle Pain Active 05/10/2020 ? Snoring Active 05/10/2020 ? Prediabetes Active 05/10/2020 ? Palpation Active 05/10/2020 ? Procedures None recorded. Vaccine List None recorded. Social History Tobacco Smoking Status Never Smoker Alcohol intake None Live alone or with others? with others Animal exposure? Y Notes: dog and 2 cats Are you currently employed? Y Blind or serious difficulty seeing N Not es: glasses Hard of hearing or deaf in one or N both ears? Caffeine intake Occasional Notes: 1 cup of c offee a day Functional Status No Impairment. 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 History of Present Illness Note: <p>Kirsten Almaguer has a phone consultation at the request of Aditi Ashby NP for evaluation of suspected sleep apnea in the setting of a- fib. She has given consent to have a phone visit. Patient is at home, provider is in the office</p><p>
</p><p>Kirsten has a medical history to include a-fib, anxiety, pre-DM, hypothyroid and diffuse joint pain. ECHO 09/2019 EF 60-65%, mild , RV nml size and function. Per Aditi's last note she is considering an ablation.</p><p>Kirsten tells me her a-fib comes and goes and most often it occurs during the night. It has been increasing in frequency and is now every 1-3 weeks and can last several hours.
</p><p>
</p><p>{{Kirsten# Patient}} feels {{his her*}} biggest problem with sleep is {{ waking up at night and tossing and turning# snoring waking upa lot not feeling rested}}. This has been going on for years.{{He She*}} typically goes to bed at {{7:30# 9}}pm. with lights out by 8:15 pm. It takes {{less than 10# 5}} minutes to fall asleep. {{He She*}} wakes up {{3-5# 1 2 3}} times a night from {{unknown reason or discomfort# unknown reason pain bathroom}} and it takes {{2-120# }} minutes to get back to sleep. {{He She *}} gets up at {{4:30# 5 6 7 8}}am to start {{his her*}} day. {{He She*}} does not take naps. {{He She*}} has no disturbances to {{his her*}} sleep. {{He She*}} has never had a sleep study. {{He She*}} sleeps {{alone * with someone}} in a bed.

SLEEP QUALITY: Feels quality ofsleep most nights is {{okay to poor# good okay poor}}.

DAYTIME ALERTNESS: Reports level of alertness most days to be {{alert to low energy or sleepy at end of the day# a lert low energy sleepy very sleepy}}.

PSYCH SYMPTOMS: {{Has* Hasnot}} noted worsening memory {{and * or}} concentration. {{Does have* Denies current problems with}} irritability, depression, {{and * or}} anxiety. {{Has * Has not}} noted difficulty with calculat ions.

INSOMNIA SYMPTOMS: {{Does have Does not have*}} an active mind at night when trying to sleep. {{Does have Does not have*}} stressful thoughts interfering with sleep. {{Does Does not*}} watch the clock throughout the night. {{Does Does not*}} worry about getting a good night's sleep.

BREATHING SYMPTOMS: {{Does have occasional# Does have Does not have}} snoring. {{Does have Does not have*}} witnessed apnea. {{Does have recent rare# Does have Does not have}} nocturnal dyspnea.{{Does have occasional# Does have Does not have}} mouth breathing. {{Does have Does not have*}} nasal congestion at night.

MOVEMENT SYMPTOMS: {{Does have * Does not have}} tossing & turning. {{Does have Does not have*}} messy sheets in the morning. {{Does have Does not have*}} leg or arm jerks, kicks or twitches in sleep or prior to falling asleep. {{Does * Does not}} have a restless legs at night when watching TV but it goes away when she gets into bed. This is most nights. {{Does * Does not}} have a hard time keeping legs still when trying to sleep. {{Does Does not*}} have muscle cramps or Kory horses. {{Does Does not*}} have sleep walking or talking.

DREAM SYMPTOMS: {{Does have Does not have*}} nightmares often that affect ability to sleep. {{Does have Does not have*}} dreams of suffocating/drowning. {{Does Does not*}} dream shortly after falling asleep. {{Does Does not*}} see dreams in the room even when awake.{{Does Does not*}} see or hear things in the room when falling asleep that aren't really there. {{Does Does not*}} see things in the road when driving that aren't really there. {{Has Has not*}} had someone see then act our their dreams. {{Has Has not*}} accidentally injured themselves while sleeping due to own movements/behaviors.

CATAPLEXY SYMPTOMS: {{Does have Does not have*}} feel limp, lose strength, or fall asleep when veryangry, surprised or laughing. {{Does have Does not have*}} leg, arm or face weakness when upset. {{Has Has not*}} had episodes of being unable to move when waking up which is often frightening.

DRIVING: {{Has Has not*}} fallen asleep or nearly fallen asleep driving. {{Has had Has not had*}} an accident related to drowsy driving or not paying attention. {{Does Does not*}} forget the last few miles or minutes while driving. {{Has Has not*}} driven out of [place] and crossedcenter line or gone onto shoulder when driving. {{Has Has not*}} had a passenger tell them they look sleepy when driving.

ESS today 08/12
[place] Questionnaire Score 0/3</p><p>
</p>Review of Systems: ROS as noted in the HPI Review of Systems ? Notes: <p>wakes with dry mouth, nig ht sweats, teeth clenching, palpitations, nocturia 1/night, joint pain (knees, shoulders).</p><p>Denies headaches.</p> Physical Exam ? Notes: <p>N/A</p>
--- OUTSIDE RECORDS SUMMARY | 2020-05-11 10:01 | XMS_ITS ---
:1965 Author Care Team Providers Name Role Phone [facility] Insulation Inspector [phone] GREG GORDON MD Primary Care Provider [phone] Allergies Code Code System Name Reaction Severity Status Onset Penicillins Anaphylaxis Severe Active ? Sulfa ? ? Active ? (Sulfonamide Antibiotics) Medications Name Status Start Date Stop Date ? ? Baby Aspirin 81 mg chewable tablet Active ? Not available Chew 1 tablet every day by oral route. Cartia XT 240 mg capsule,extended Completed ? 05/10/2020 release diltiazem 30 mg tablet Active ? Not avail able PRN diltiazem ER 240 mg capsule,24 Active ? N ot available hr,extended release L-Methylfolate 15 mg tablet Active ? Not available Take 1 mg by oral route. levothyroxine 50 mcg tablet Active ? Not available magnesium Active ? Not available 500 melatonin Active ? Not available 6mg sertraline 25 mg tablet Completed ? 05/10/19 vitamin B complex Active ? Not available Vitamin D3 Active ? Not available [id number] u zolpidem 5 mg tablet Active ? Not availab le Take 1-2 PO night of sleep study if needed Problems Name Status Onset Date Source ? Hypothyroidism Active 05/10/2020 ? Obesity Active 05/10/2020 ? Anxiety Active 05/10/2020 ? Restless Legs Active 05/10/2020 ? Aortic Valve Stenosis Active 05/10/2020 ? Atrial Fibrillation Active 05/10/2020 ? Osteoarthritis Active 05/10/2020 ? Muscle Pain Active 05/10/2020 ? Snoring Active 05/10/2020 ? Prediabetes Active 05/10/2020 ? Palpation Active 05/10/2020 ? Procedures None recorded. Results Lab Results None recorded. 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 Social History Tobacco Smoking Status Never Smoker Vaccine List None recorded. Plan of Care Reminders Provider Appointments None ? ? recorded. Lab None ? ? recorded. Referral None ? ? recorded. Procedures None ? ? recorded. Surgeries None ? ? recorded. Imaging None ? ? recorded. Vitals Height Weight BMI 175.26 cm 78.93 kg 25.7 kg/m2
[2020-05-11 10:40] LABS: Ferritin 86 ng/mL (8-252)
== END 2020-05-21 23:59 | disposition home or self-care (01) ==
LOC: INF 09:59
PROVIDERS: PCP Internal Medicine; Visit Provider Nurse Practitioner
DX: M25.561 Pain in right knee (principal)
CPT/HCPCS: 36415; 82728

== ENCOUNTER 2020-05-23 13:00 | Outpatient (RCR) | payer OTHER, SELFPAY ==
[2020-05-23 15:05] LABS: Hemoglobin A1C 5.6 % (<5.7)
[2020-05-23 15:15] LABS: ALT 28 U/L (14-59); AST 17 U/L (15-37); Albumin 4.1 g/dL (3.4-5.0); Alkaline Phosphatase 75 U/L (46-116); BUN 15 mg/dL (7-18); Bilirubin, Total 0.4 mg/dL (0.2-1.0); CREATININE 0.6 mg/dL (0.55-1.02); Calcium 8.8 mg/dL (8.5-10.1); Chloride 104 mmol/L (98-107); Glucose 144 mg/dL (74-106); Potassium 3.8 mmol/L (3.5-5.1); Sodium 141 mmol/L (136-145); TSH 2.27 uIU/mL (0.36-3.74); Total Protein 7.2 g/dL (6.4-8.2)
[2020-05-25 04:23] LABS: Vitamin D 25 Total 54.9 ng/ml (30-100)
== END 2020-06-18 23:59 | disposition home or self-care (01) ==
LOC: INF 13:00
PROVIDERS: PCP Internal Medicine; Visit Provider Internal Medicine
DX: M25.561 Pain in right knee (principal)
CPT/HCPCS: 36415; 80053; 82306; 83036; 84443

== ENCOUNTER 2020-08-02 15:31 | Outpatient (REF) | payer OTHER, SELFPAY | END 2020-08-02 15:32 | disposition home or self-care (01) | LOC: LBN 15:31 | PROVIDERS: PCP Internal Medicine; Visit Provider Nurse Practitioner Women's Health | DX: R30.0 Dysuria (principal) | CPT/HCPCS: 87086 ==

== ENCOUNTER 2020-11-13 14:43 | Outpatient (RCR) | payer OTHER, SELFPAY ==
[2020-11-13 15:00] LABS: Abs Immature Grans 0.02 10^3/uL (0.0-0.06); Absolute Basophil Count 0.01 10^3/uL (0.0-0.2); Absolute Eosinophil Count 0.12 10^3/uL (0.0-0.7); Absolute Lymphocyte Count 1.92 10^3/uL (1.2-3.4); Absolute Monocyte Count 0.45 10^3/uL (0.1-0.8); Absolute Neutrophil Count 3.83 10^3/uL (1.2-6.7); Basophils % 0.2; Eosinophils % 1.9; Immature Grans % 0.3; Lymphocytes % 30.2; MCH 30.1 pg (27.0-33.0); MCHC 33.3 % (32.0-36.0); MCV 90.3 fL (80-95); MPV 9.4 fL (8.0-11.0); Monocytes % 7.1; Neutrophils % 60.3; Nucleated RBC 0 %; Platelet Count 220 10^3/uL (130-400); RBC 4.32 10^6/uL (3.93-5.22); RDW 12.6 % (11.7-14.6); RDW-SD 41.8 fL; WBC 6.35 10^3/uL (4.4-10.8)
[2020-11-13 15:01] LABS: Bilirubin Negative (Negative); Blood Negative (Negative); Clarity Clear (Clear); Glucose Negative (Negative); Ketones Negative (Negative); Leukocyte Esterase Negative (Negative); Nitrite Negative (Negative); Specific Gravity 1.025 (1.005-1.025); Urobilinogen 0.2 EU/dL (Up TO 0.2)
== END 2020-11-18 23:59 | disposition home or self-care (01) ==
LOC: INF 14:43
PROVIDERS: PCP Internal Medicine; Visit Provider Internal Medicine
DX: M35.9 Systemic involvement of connective tissue, unspecified (principal)
CPT/HCPCS: 36415; 81003; 85025

== ENCOUNTER 2021-03-02 15:04 | Outpatient (RCR) | payer OTHER, SELFPAY ==
[2021-03-02 15:44] LABS: C-Reactive Protein < 0.05 mg/dL (0.0-0.3)
[2021-03-02 16:55] LABS: ESR 2 mm/hr (0-30)
== END 2021-03-20 23:59 | disposition home or self-care (01) ==
LOC: INF 15:04
PROVIDERS: PCP Internal Medicine; Visit Provider Internal Medicine
DX: M35.9 Systemic involvement of connective tissue, unspecified (principal)
CPT/HCPCS: 36415; 85652; 86140

== ENCOUNTER 2021-07-26 09:46 | Outpatient (CLI) | payer OTHER, SELFPAY ==
--- NOTE | 2021-07-26 09:04 | DI.RAD_ITS ---
Exam(s) XR KNEE LT 4V AP,LAT,ALISA,PAT EXAM: XR KNEE LT 4V AP,LAT,ALISA,PAT CLINICAL HISTORY: L TKA. TECHNIQUE: 2D digital imaging was performed of the left knee. Four images were obtained. AP, later al, Merchant and PA tunnel views were obtained. COMPARISON: CR XR knee LT 2V AP,lat from 06/24/2018 FINDINGS: BONES: No acute fracture is present. No bony destructive lesion is seen. JOINTS: Moderate degenerative changes are seen in the left knee with joint space narrowing and periar ticular spurring. The findings are most marked in the medial femoral tibial and patellofemoral joint s. There is a small suprapatellar joint effusion. SOFT TISSUE: Normal. IMPRESSION: Moderate degenerative changes of the left knee. DATA REPOSITORY: RADIATION DOSE DELIVERED:
== END 2021-07-26 09:47 | disposition home or self-care (01) ==
LOC: DIORS 09:46
PROVIDERS: PCP Internal Medicine; Referring Provider Internal Medicine; Visit Provider Student in an Organized Health Care Education/Training Program
DX: M25.562 Pain in left knee (principal); M25.462 Effusion, left knee; M17.12 Unilateral primary osteoarthritis, left knee
CPT/HCPCS: 73564

== ENCOUNTER 2021-08-06 02:32 | Outpatient (CLI) | payer OTHER, SELFPAY | END 2021-08-06 02:33 | disposition home or self-care (01) | LOC: LBO 02:32 | PROVIDERS: PCP Internal Medicine; Visit Provider Student in an Organized Health Care Education/Training Program ==

== ENCOUNTER 2021-08-06 02:51 | Outpatient (CLI) | payer OTHER, SELFPAY ==
[2021-08-06 11:58] LABS: Source Nasal/Nares
[2021-08-06 14:13] LABS: COVID-19 PCR Negative (Negative)
== END 2021-08-06 02:52 | disposition home or self-care (01) ==
PROVIDERS: PCP Internal Medicine; Visit Provider Student in an Organized Health Care Education/Training Program
DX: Z01.818 Encounter for other preprocedural examination; Z20.822 Contact with and (suspected) exposure to COVID-19
CPT/HCPCS: 87635

== ENCOUNTER 2021-08-06 07:40 | Outpatient (RCR) | payer OTHER, SELFPAY ==
[2021-08-06 08:28] LABS: HCT 41.4 % (36.0-46.0); HGB 13.9 g/dL (11.2-15.7); MCH 30.3 pg (27.0-33.0); MCHC 33.6 % (32.0-36.0); MCV 90.4 fL (80-95); MPV 9.5 fL (8.0-11.0); Platelet Count 222 10^3/uL (130-400); RBC 4.58 10^6/uL (3.93-5.22); RDW 12.9 % (11.7-14.6); RDW-SD 42.8 fL; WBC 4.92 10^3/uL (4.4-10.8)
[2021-08-06 08:31] LABS: ESR 3 mm/hr (0-30)
[2021-08-06 08:36] LABS: BUN 14 mg/dL (7-18); CREATININE 0.6 mg/dL (0.55-1.02); Calcium 8.9 mg/dL (8.5-10.1); Chloride 104 mmol/L (98-107); Glucose 122 mg/dL (74-106); Potassium 3.8 mmol/L (3.5-5.1); Sodium 140 mmol/L (136-145)
[2021-08-06 08:37] LABS: C-Reactive Protein 0.15 mg/dL (0.0-0.3)
== END 2021-08-18 23:59 | disposition home or self-care (01) ==
LOC: INF 07:40
PROVIDERS: Internal Medicine; PCP Internal Medicine; Visit Provider Student in an Organized Health Care Education/Training Program
DX: M35.9 Systemic involvement of connective tissue, unspecified (principal)
CPT/HCPCS: 80048; 85027; 85652; 86140

== ENCOUNTER 2021-08-07 08:57 | Day surgery (SDC) | payer OTHER, SELFPAY ==
[2021-08-07] VITALS (9 sets, daily range): BP systolic 95–144; BP diastolic 43–95; PULSE 55–76; RESP 11–16; TEMP 36.2–36.9; O2SAT 96–100; BMI 27.5
--- NOTE | 2021-08-07 07:44 | W.PM.DSUDISC ---
Discharge Plan Disposition Patient Disposition: HOME Condition: Stable Discharge Details Reason For Visit: Left TKA Attending Provider: Miguel Leon Primary Care Provider: Jasmyne Poe Home Meds and New Rx's Prescriptions: New celecoxib [Celebrex] 200 mg capsule 200 mg PO BID Qty: 60 0RF aspirin 81 mg tablet,delayed release (DR/EC) 81 mg PO BID Qty: 60 0RF pantoprazole [Protonix] 40 mg tablet,delayed release (DR/EC) 40 mg PO DAILY Qty: 30 0RF gabapentin 300 mg capsule 300 mg PO QHS Qty: 14 0RF acetaminophen 500 mg capsule 1,000 mg PO Q8H PRN PRNQty: 90 0RF oxycodone 5 mg tablet 5 mg PO Q4H PRNQty: 18 0RF Continued ascorbic acid-elderberry fruit [Airborne (elderberry)] 100-50 mg tablet,chewable 1 tab PO DAILY 0RF cholecalciferol (vitamin D3) [Vitamin D3] 2,000 UNIT capsule 2,000 unit PO DAILY 0RF Label Comments: Patient states now taking 4000 Daily Multiple 1 EACH tablet 1 ea PO DAILY 0RF levothyroxine 50 MCG tablet 50 mcg PO DAILY Qty: 90 4RF Rx Instructions: 1 tab po daily Discontinued ibuprofen 800 MG tablet 800 mg PO PRN PRN0RF Discharge Instructions Additional Instructions: Total Knee Discharge Instructions Activity: The most important activity is to walk. You should try to take short walks a few times a day. It is important that when resting you work on keeping the knee straight. Avoid putting a pillow behind the knee as this will encourage flexion. Work on range of motion exercises as provided by Physical Therapy. If you have the [employer] bike coming, this will be your primary tool for exercise after the knee replacement. You should use it and follow the directions for the knee. Utilize the other exercises sparingly based on your symptoms. - Start outpatient physical therapy within 2 weeks. - You should wear the DAVIN hose on both legs for 2 weeks. You may remove these at night. You may also use any compression sock in place of the DAVIN hose. - Utilize [employer] to review exercises, see videos on exercises and obtain basic information pertaining to your surgery and your recovery. Dressing: Remove the Brando wrap by 2 days after your surgery and put on the DAVIN stocking given to you from the hospital. Keep the surgical dressing (underneath the BRANDO wrap) in place for at least one week. After the first week it may be removed and replaced with light gauze and tape or nothing. The wound and dressing may get wet after 3 days but avoid soaking the dressing or otherwise it will need to be changed. Many people prefer covering the dressing with cling wrap (saran wrap) to minimize it from getting soaked. If it gets wet, just pat dry. If it starts to peel off then it will need to be changed. Medications: - You should take Tylenol and anti-inflammatory Celebrex as your primary pain control medications. If the Celebrex is too expensive or not covered, please call the office for another alternative (Advil/Ibuprofen or Naproxen/Aleve) - You have been prescribed a stronger pain medication Oxycodone for breakthrough pain, take as needed as prescribed. - You have also been prescribed a stomach acid reduction agent Pantoprozole to help reduce stomach acid and reflux. - You have been prescribed Gabapentin to take at night for restlessness and nerve pain. - You will be taking Aspirin 81mg twice a day for DVT prevention unless instructed otherwise. - If you have constipation you should take Colace or Miralax (both [id number]). It takes most people 3-4 days to have a bowel movement. Follow-up: 2 weeks If you have any acute concerns or questions, please do not hesitate to contact the office at [phone]. You may contact Dr. Leon with any questions after hours through the hospital at [phone] or on his cell phone at [phone]. Referrals: Miguel Leon MD [ [facility] STAFF PHYSICIAN] - Equipment/Supplies: Walker Activity:: Activity as Tolerated Remove Dressings/Wound Care:: Do Not Remove Shower/Bathe:: 72 hours Diet:: As Tolerated Discharge Orders Discharge Orders: Discharge Order (Routine); Ordered 08/07/21 Ordered By: Jennifer Abdalla DS: Diagnosis Discharge Diagnosis (1) Left knee DJD: Status: Chronic
--- NOTE | 2021-08-07 08:03 | ANES.PREOP_ITS ---
General Info Date of Service Date Performed: 08/07/21 Height: 5 ft 9 in Weight: 84.538 kg Body Mass Index (BMI): 27.5 Surgical Procedure: Operation Date: 08/07/21 11:40 Proposed Procedure Side Surgeon p Knee Total Arthroplasty Cementless CR Left Miguel Leon MD Meds Allergies and Home Medications Allergies Allergy/AdvReac Type Severity Reaction Status Date / Time Penicillins Allergy Intermediate Anaphylaxsi Verified 08/07/21 09:12 s Sulfa (Sulfonamide Allergy Intermediate Skin Rash Verified 08/07/21 09:12 Antibiotics) Home Medication Medication Instructions Recorded cholecalciferol (vitamin D3) 50 2,000 unit PO DAILY 09/05/14 mcg (2,000 unit) capsule (Vitamin D3) multivitamin-ferrous 1 ea PO DAILY 09/05/14 fumarate-folic acid 18 mg-400 mcg tablet (Daily Multiple) levothyroxine 50 mcg tablet 50 mcg PO DAILY #90 tab 10/02/15 ascorbic acid 100 mg-elderberry 1 tab PO DAILY 08/03/21 fruit 50 mg chewable tablet (Airborne (elderberry)) acetaminophen 500 mg capsule 1,000 mg PO Q8H PRN PRN #90 cap 08/07/21 aspirin 81 mg tablet,delayed 81 mg PO BID #60 tab 08/07/21 release celecoxib 200 mg capsule (Celebrex) 200 mg PO BID #60 cap 08/07/21 gabapentin 300 mg capsule 300 mg PO QHS #14 cap 08/07/21 oxycodone 5 mg tablet 5 mg PO Q4H PRN #18 tab 08/07/21 pantoprazole 40 mg tablet,delayed 40 mg PO DAILY #30 tab 08/07/21 release (Protonix) Current Visit Medications: Current Medications Generic Name Dose Route Start Last Admin Trade Name Freq PRN Reason Stop Dose Admin Acetaminophen 1,000 mg 08/07/21 06:00 Acetaminophen 500 Mg Tab PO 08/07/21 16:00 PREOP RC Acetaminophen 1,000 mg 08/07/21 08:30 Acetaminophen 500 Mg Tab PO TID RC Aspirin 81 mg 08/07/21 08:30 Aspirin E.C. 81 Mg Tabec PO BID RC Celecoxib 200 mg 08/07/21 08:30 Celecoxib 200 Mg Cap PO BID RC Docusate Sodium 100 mg 08/07/21 07:40 Docusate Sodium 100 Mg Cap PO BID PRN PRN Constipation Gabapentin 300 mg 08/07/21 22:00 Gabapentin 300 Mg Cap PO HS RC Hydromorphone HCl 0.5 mg 08/07/21 07:40 Hydromorphone 2 Mg/Ml Vial IVP Q2H PRN PRN Tranexamic Acid 1,000 mg/ 60 mls @ 360 mls/hr 08/07/21 06:00 Sodium Chloride IV 08/07/21 16:00 PREOP RC Tranexamic Acid 1,000 mg/ 60 mls @ 360 mls/hr 08/07/21 06:00 Sodium Chloride IV 08/07/21 16:00 DIRECTED [facility] Ringer's Solution 1,000 mls @ 80 mls/hr 08/07/21 06:00 IV 08/18/21 23:59 INFUSION RC Clindamycin Phosphate/Dextrose 900 mg in 50 mls @ 50 mls/hr 08/07/21 06:00 Cleocin In D5w IVPB 08/07/21 16:00 PREOP [facility] IV Miscellaneous Supplies 1 each 08/07/21 06:00 Iv Access IV 08/18/21 23:59 DIRECTED [facility] Ondansetron HCl 4 mg 08/07/21 07:40 Ondansetron 4 Mg/2 Ml Vial IVP Q6H PRN PRN Nausea Oxycodone HCl 0 mg 08/07/21 07:40 Oxycodone 5 Mg Tab PO Q3H PRN PRN Pain Pantoprazole Sodium 40 mg 08/08/21 07:30 Pantoprazole 40 Mg Tabcr PO DAILY@0730 [facility] Sodium Chloride 0 ml 08/07/21 06:00 Normal Saline Flush 10 Ml Syr IV 08/18/21 23:59 PRN PRN Sodium Chloride 0 ml 08/07/21 06:00 Normal Saline 10 Ml Vial IJ 08/18/21 23:59 DIRECTED PRN Sterile Water 0 ml 08/07/21 06:00 Water,Injection,Sterile 10 Ml Vial IJ 08/18/21 23:59 DIRECTED PRN PFSH Active Problems Active Problems: Problem Status Onset Code Panic attacks 12/19/15 F41.0 Late insomnia 12/19/15 F51.09 Uterine prolapse 05/20/17 N81.4 Rectocele 05/20/17 N81.6 Anxiety 12/19/15 F41.9 Acquired hypothyroidism 12/19/15 E03.9 Left knee DJD M17.12 Uterine fibroid D25.9 Abnormal uterine bleeding (AUB) N93.9 Medical History Medical History A-fib Medical History Comments:: Pt. stated during knee arthroscopy 18 years ago she woke up during it, states she is nervous for that to happen again. Surgical History Surgical History section H/O cardiac radiofrequency ablation last f/u with card 01/2021 Dr. Rader at [facility] left knee arthroscopy Tobacco Smoking/Tobacco Use Status: Never Alcohol Alcohol Intake: current Alcohol intake frequency: holidays/special occasions only Substance Use Substance use: Never Substance use type: does not use Prental History History 3 Para 3 Hx # Term Pregnancies Multiple births Hx # Pregnancies Ectopic pregnancies AB induced Hx Number of Living Children AB spontaneous Vital Signs and Lab Results Lab Results Blood Type / Crossmatch: No Data to Display Complete Blood Count: White Blood Count 4.92 10^3/uL (4.4-10.8) 08/06/21 07:50 08/06/21 Red Blood Count 4.58 10^6/uL (3.93-5.22) 08/06/21 07:50 08/06/21 Hemoglobin 13.9 g/dL (11.2-15.7) 08/06/21 07:50 08/06/21 Hematocrit 41.4 % (36.0-46.0) 08/06/21 07:50 08/06/21 Platelet Count 222 10^3/uL (130-400) 08/06/21 07:50 08/06/21 Complete Metabolic Panel: Sodium Level 140 mmol/L (136-145) 08/06/21 07:50 08/06/21 Potassium Level 3.8 mmol/L (3.5-5.1) 08/06/21 07:50 08/06/21 Chloride Level 104 mmol/L (98-107) 08/06/21 07:50 08/06/21 Carbon Dioxide Level 32.0 mmol/L (21.0-32.0) 08/06/21 07:50 08/06/21 Blood Urea Nitrogen 14 mg/dL (7-18) 08/06/21 07:50 08/06/21 Creatinine 0.6 mg/dL (0.55-1.02) 08/06/21 07:50 08/06/21 Estimated GFR/1.73 m2 >= 60.00 (mL/min/1.73m2) 08/06/21 07:50 08/06/21 Calcium Level 8.9 mg/dL (8.5-10.1) 08/06/21 07:50 08/06/21 Glucose Level 122 mg/dL (74-106) H 08/06/21 07:50 08/06/21 C-Reactive Protein 0.15 mg/dL (0.0-0.3) 08/06/21 07:50 08/06/21 Liver Function Panel: No Data to Display Coagulation Panel: No Data to Display Cardiac Panel: No Data to Display Arterial Blood Gas: No Data to Display Venous Blood Gas: No Data to Display Pancreas Panel: No Data to Display Thyroid Panel: No Data to Display Infectious Disease: Coronavirus (COVID-19)(PCR) Negative (Negative) 08/06/21 09:00 08/06/21 Coronavirus 2019 Source Nasal/Nares 08/06/21 09:00 08/06/21 Blood Cultures: No Data to Display Toxicology Panel: No Data to Display Imaging and Studies Imaging and Studies Study information below may be from another EMR and interpreted by another provider. Please see original notes in EMR for more complete details. Echocardiogram Summary: : LVEF 60-65%, mild 1.7 cm2, HANS 1.9 cm2, mild MR, PAS 36 mmhg Pulmonary Function Summary: 2018: FVC 90%, FEV1 89%. Anesthesia Assessment and Plan Anesthesia History Personal History: No History of Anesthesia Complications and Other Family History: No Family History of Anesthesia Complications Exercise Tolerance Exercise Tolerance: Metabolic Equivalents>4 Cardiac & Pulmonary Exam Cardiac Exam: Normal S1/S2 Heart Sounds Pulmonary Exam: Clear Bilateral Breath Sounds Implantable Cardiac Device Does patient have a Pacemaker or an ICD?: No Airway Exam Known Difficult Airway: No Mallampati Class: 2 Mouth Opening: Normal (> 3cm) Thyromental Distance: Greater than 3 cm Neck Range of Motion: Full ROM Neck Circumference: Normal Teeth Condition: Normal Dentition ASA Classification ASA Score: ASA 2 Emergency Case?: No NPO Status NPO Status: NPO Clears >2 hours, Solids >8 hours Anesthesia Plan Resuscitation Status: Full Code Anesthesia Technique: Spinal Anesthesia Airway Planned: Natural Airway Pain Management: Surgeon and patient request nerve block Monitors Used: Standard Monitors Preoperative Comments:: 56 yo female for TKA. Sig PMHx: afib ablation - doing well, mild , rheumatoid arthritis, hypothyroid, anxiety. Previous Anes: mask with OPA, mac 3 grade 1.
[2021-08-07] MEDS: Acetaminophen 500 MG TAB 1000 MG PO (09:30)
[2021-08-07] MEDS: Lactated Ringers 1,000 ML 80 ML IV (09:58)
--- NOTE | 2021-08-07 10:15 | W.ANESNERVE ---
Nerve Block Single Injection Procedure Date and Time Date Performed: 08/07/21 Procedure Start: 10:08 Location Where Procedure Performed Procedure Location: Day Surgery Unit Reason Performed: Postoperative Analgesia Requesting Provider: Miguel Leon Timeout Performed Timeout Performed: Yes Monitoring Used ECG, Blood Pressure and SpO2 Sterility Sterility: Hand Hygiene, Surgical Cap, Surgical Mask, Sterile Gloves and Chlorhexidine Sedation Given During Procedure Sedation Given (Indicate Dose Given): Versed IV Dose:: 2 mg Patient Mental Status Patient Mental Status: Sedate with meaningful communication Nerve Block 1st Nerve Block: Laterality: Left Block Type: Adductor Canal Needle / Catheter Used: 100mm SonoPlex II Local Anesthetic Bolus (Indicate Dose Given): Lidocaine used for local infiltration of skin, Injected in 3-5ml increments after negative blood aspiration and Bupivacaine 0.375% Dose:: 10 mL Additives (Indicate Dose Given): Decadron Dose:: 2 mg and Precedex Dose:: 10 mcg Ultrasound: Sterile probe cover and gel used Ultrasound Image Saved?: Yes Nerve Stimulator: Not Used Paresthesia: None Procedure Tolerated: No Complications Procedure Outcome: Successful Performed By: Akash Keyes
[2021-08-07] MEDS: CLINDAMYCIN 900 MG/50 ML BAG 50 MG IVPB (10:21)
--- NOTE | 2021-08-07 12:02 | PDOC.DSDIS_ITS ---
Discharge Plan Disposition Patient Disposition: HOME Condition: Stable Discharge Details Reason For Visit: Left TKA Attending Provider: Miguel Leon Primary Care Provider: Jasmyne Poe Home Meds and New Rx's Prescriptions: New celecoxib [Celebrex] 200 mg capsule 200 mg PO BID Qty: 60 0RF aspirin 81 mg tablet,delayed release (DR/EC) 81 mg PO BID Qty: 60 0RF pantoprazole [Protonix] 40 mg tablet,delayed release (DR/EC) 40 mg PO DAILY Qty: 30 0RF gabapentin 300 mg capsule 300 mg PO QHS Qty: 14 0RF acetaminophen 500 mg capsule 1,000 mg PO Q8H PRN PRNQty: 90 0RF oxycodone 5 mg tablet 5 mg PO Q4H PRNQty: 18 0RF Continued ascorbic acid-elderberry fruit [Airborne (elderberry)] 100-50 mg tablet,chewable 1 tab PO DAILY 0RF cholecalciferol (vitamin D3) [Vitamin D3] 2,000 UNIT capsule 2,000 unit PO DAILY 0RF Label Comments: Patient states now taking 4000 Daily Multiple 1 EACH tablet 1 ea PO DAILY 0RF levothyroxine 50 MCG tablet 50 mcg PO DAILY Qty: 90 4RF Rx Instructions: 1 tab po daily Discontinued ibuprofen 800 MG tablet 800 mg PO PRN PRN0RF Discharge Instructions Additional Instructions: Total Knee Discharge Instructions Activity: The most important activity is to walk. You should try to take short walks a few times a day. It is important that when resting you work on keeping the knee straight. Avoid putting a pillow behind the knee as this will encourage flexion. Work on range of motion exercises as provided by Physical Therapy. If you have the [employer] bike coming, this will be your primary tool for exercise after the knee replacement. You should use it and follow the directions for the knee. Utilize the other exercises sparingly based on your symptoms. - Start outpatient physical therapy within 2 weeks. - You should wear the DAVIN hose on both legs for 2 weeks. You may remove these at night. You may also use any compression sock in place of the DAVIN hose. - Utilize [employer] to review exercises, see videos on exercises and obtain basic information pertaining to your surgery and your recovery. Dressing: Remove the Brando wrap by 2 days after your surgery and put on the DAVIN stocking given to you from the hospital. Keep the surgical dressing (underneath the BRANDO wrap) in place for at least one week. After the first week it may be removed and replaced with light gauze and tape or nothing. The wound and dressing may get wet after 3 days but avoid soaking the dressing or otherwise it will need to be changed. Many people prefer covering the dressing with cling wrap (saran wrap) to minimize it from getting soaked. If it gets wet, just pat dry. If it starts to peel off then it will need to be changed. Medications: - You should take Tylenol and anti-inflammatory Celebrex as your primary pain control medications. If the Celebrex is too expensive or not covered, please call the office for another alternative (Advil/Ibuprofen or Naproxen/Aleve) - You have been prescribed a stronger pain medication Oxycodone for breakthrough pain, take as needed as prescribed. - You have also been prescribed a stomach acid reduction agent Pantoprozole to help reduce stomach acid and reflux. - You have been prescribed Gabapentin to take at night for restlessness and nerve pain. - You will be taking Aspirin 81mg twice a day for DVT prevention unless instructed otherwise. - If you have constipation you should take Colace or Miralax (both [id number]). It takes most people 3-4 days to have a bowel movement. Follow-up: 2 weeks If you have any acute concerns or questions, please do not hesitate to contact the office at [phone]. You may contact Dr. Leon with any questions after hours through the hospital at [phone] or on his cell phone at [phone]. Referrals: Miguel Leon MD [ [facility] STAFF PHYSICIAN] - Equipment/Supplies: Walker Activity:: Activity as Tolerated Remove Dressings/Wound Care:: Do Not Remove Shower/Bathe:: 72 hours Diet:: As Tolerated Discharge Orders Discharge Orders: Discharge Order (Routine); Ordered 08/07/21 Ordered By: Jennifer Abdalla DS: Diagnosis Discharge Diagnosis (1) Left knee DJD: Status: Chronic
--- NOTE | 2021-08-07 12:41 | W.ANESPOSTOP ---
Postoperative Evaluation Date, Time and Location Date Performed: 08/07/21 Time Performed: 12:41 Patient Location: Day Surgery Unit Vital Signs Most Recent Imported Vital Signs: Most Recent Vital Signs Temp Pulse Resp BP Pulse Ox 36.4 C L 55 L 11 L 112/69 97 08/07/21 12:17 08/07/21 12:17 08/07/21 12:17 08/07/21 12:17 08/07/21 12:17 Pain Score Most Recent Pain Score: Most Recent Pain Score Pain Level 0 08/07/21 12:17 Assessment Mental Status: Awake (Alert & Oriented to Patient Baseline) Airway and Respiratory Function: Patent airway with normal (patient baseline) respiratory exam Cardiovascular Function: Hemodynamically Stable Hydration Status: Adequately Hydrated Nausea & Vomiting: No Nausea or Vomiting Pain: Pain is tolerable per patient Peripheral Nerve Block: Regional nerve block not resolved at time of post operative discharge
[2021-08-07] MEDS: oxyCODONE 5 MG TAB PO (13:28)
--- NOTE | 2021-08-07 14:23 | PT.INIE ---
Date of service: 08/07/21 Time of Service: 14:19 PT Notes Visit Reasons: Left TKA Physical Therapy Day Surgery Initial Evaluation Date: 08/07/2021 Referring Doctor: MOSHE Ceron PT Orders: PT CONSULT: S/P Ortho surgery Precautions: WBAT on left LE with AD. Patient Profile/Admitting Diagnosis: Kirsten is a 56-year-old female with degenerative joint disease of the left knee and status post left total knee arthroplasty on postoperative day 0. PMHX: Medical History? A-fib Surgical History?(Updated 08/03/21 @ 14:09 by Lobo Portillo) section H/O cardiac radiofrequency ablation last f/u with card 01/20[address] Dr. Rader at [facility]/P left knee arthroscopy Social History/Home Situation: Lives with and son in a private home with 3 steps to enter with rail on both sides. There is another flight of steps to the second floor of the house where their bedroom is. 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 Equipment Owned/DME: None Subjective: Agreeable to PT consult. Denies headache, chest pain, lightheadedness throughout session. Objective: General Observation: Supine in bed. HALINA wraps to L LE. Cryocuff to L knee. TEDS on R leg. Mental Status: Alert and oriented x 4 Pain: 2-3/10 pain in the L knee ROM: Right Lower Extremity: Hip flexion WFL. Hip abduction WFL. Knee flexion WFL. Ankle dorsiflexion WFL. Ankle plantarflexion WFL. Left Lower Extremity: Hip flexion WFL. Hip abduction WFL. Knee flexion 0 degrees to 100 degrees. Knee extension 100-0 degrees. Dorsiflexion WFL. Ankle plantarflexion WFL. Strength: Right Lower Extremity: Hip flexors 5/5. Hip abductors 5/5. Knee flexors 5/5. Knee extensors 5/5. Ankle dorsiflexors 5/5. Ankle plantarflexors 5/5. Left Lower Extremity:Hip flexors 5/5. Hip abductors 5/5. Knee flexors 3-/5. Knee extensors 3-/5. Ankle dorsiflexors 5/5. Ankle plantarflexors 5/5. Sensation: Intact as to pain and light pressure in B LE Bed Mobility/Transfers: Supine to sit stand by assist Sit to stand contact guard assist Stand to sit stand by assist Bed to chair stand by assist Gait: Covered 150 feet of level surface ambulation using FWW with step-through gait pattern and another 30 feet of same surface using bilateral axillary crutches with three-point gait pattern without difficulty. Patient did verbalize that she feels more stable with the FWW and thinks that it will serve her better in case her pain level increases. Good quad activation in left. Stairs: Up and down 6 x 4-inch steps and 4 x 6-inch steps while holding onto rail and a single point cane. Balance: Static Sitting: Normal Dynamic Sitting: Normal Static Standing: Fair Dynamic Standing: Fair Special Tests: Mobility Limitations Standardized Measure [facility] AM-PAC 6 clicks Basic Mobility Inpatient Short Form: Raw Score: 23 CMS Score: 11% deficit Informed Consent/Education: Patient instructed in purpose of PT consult. Education and training on initial set of exercises that can be done at home have been completed with patient while using the Parachute augustina on her smart phone. Assessment: Kirsten requires the use of a front wheeled walker to maximize independence and reduce fall risk. She will have the support of her and her son as she recovers at home. Patient presents with clinical signs and symptoms consistent with current/admitting diagnoses that have resulted to mobility limitations, gait instability, generalized weakness, and impairment of motor control as demonstrated by the following impairment level findings: 1. Decreased strength to left knee major muscle groups 2. Impaired standing balance 3. Limitation of joint range of motion in left knee flexion Impairments are contributing to the following functional limitations: 1. Inability to safely ambulate without assistive device 2. Increase completion time for mobility ADL performance 3. Increased fall risk Patient is assessed as a 58269 moderate complexity based on the following: History: 56-year-old female with impairment level findings, functional limitations, and past medical history as indicated above Examination: Demonstrable impairment in strength, balance, and mobility level with underlying impairments and functional limitations as documented above Presentation: Evolving Decision Makin moderate complexity Goals: N/A. PT evaluation and 1-2 treatment sessions only for functional mobility training using recommended AD and for HEP instruction. Plan of Care/Treatment Plan: N/A. PT evaluation and 1-2 treatment session only for functional mobility training using recommended AD and for HEP instruction. DISCHARGE RECOMMENDATIONS: [] Home with no services [] [] Home with services [specify] [X] Home with outpatient PT. Home when medically cleared by orthopedic surgeon. Will benefit from outpatient PT services in order to facilitate return to full vocational activities and he to independent community ambulation without an assistive device. [] SNF for continued rehabilitation [] [] [facility] [] [] SNF versus LTC based on ability to participate and progress [] TREATMENT CODE/TIME: 25183 x 20 minutes, 9753 0 x 19 minutes beginning at 14:23 PM. Thank you for the opportunity to participate in the care of this patient. Kerri Simon PT, DPT, CLT [facility] [place], [place]
--- NOTE | 2021-08-07 20:50 | W.PM.OP ---
Date of service: 08/07/21 Time of Service: 11:45 Operative Note Operative Note DATE OF PROCEDURE: 08/07/21 PRE-OP DIAGNOSIS: Left Knee Osteoarthritis POST-OP DIAGNOSIS: same PROCEDURE: Left Total Knee Replacement SURGEON: Miguel Leon BEDSPREAD FOLDER: Lily Ross Refer to Anesthesia Record PATHOLOGY: none sent TOURNIQUET TIME: 0 COMPLICATIONS: None Patient was transported to: PACU Patient's condition: stable Implants: 1. Depuy Attune Cementless Cruciate Retaining Femoral Component, Size 6 2. Depuy Attune Cementless Rotating Platform Tibial Component, Size 5 3. Depuy Attune 6x8mm CR/RP Poly 4. Depuy Attune Patellar Component, Size 38 Indications: I have seen Kirsten in clinic for symptoms of knee arthritis, confirmed with radiographic findings. She has exhausted nonoperative methods and was having significant limitations in daily function and desired better function and less pain. I discussed the technical details of a knee replacement. I explained the risks of the procedure to include, but not limited to, bleeding, infection, pain, stiffness, fracture, damage to nerves and vessels, damage to muscles and tendons, loosening, need for repeat procedure, blood clot and cardiopulmonary demise. Despite these risks, Kirsten elected to proceed. Findings: There was significant signs of arthritis throughout the knee with large osteophytes about the medial femur and tibia. Procedure Description: Kirsten was greeted in the preoperative holding area where the correct side was identified and marked. The consent was reviewed with the patient and signed. The history and physical was updated. All questions were answered. Preoperative medications were administered: Acetaminophen 1000mg, Celebrex 400mg, and Gabapentin 300mg. An adductor canal block was then administered by the anesthesia team in the PACU. She was taken back to the operating room. A spinal anesthestic was then administered. The patient was placed into the supine position on the operating room table. A nonsterile tourniquet was placed high onto the leg but only used for cementing. Posts were placed for positioning during the procedure. All bony prominences were well padded. Prophylactic antibiotics in the form of Clindamycin were administered. 1g of Tranxemic Acid was given intravenously within 30 minutes of incision. The left leg was then prepped with Chloraprep and draped in a standard fashion with impervious stockinette. A second prep with Chloraprep was performed prior to application of Iodine impregnated skin protection. A timeout to confirm correct identity, side and site, procedure, allergies, anesthesia, and medical concerns was performed. With the knee in some flexion, a midline incision was made overlying the knee. Full thickness skin flaps were raised once the extensor mechanism was encountered. These were raised medially and laterally. Any bleeding was controlled with electrocautery. Once the extensor mechanism was fully exposed, a medial parapatellar arthrotomy was performed in a flexed position. All bleeding from the arthrotomy and the geniculate arteries was coagulated. A medial subperiosteal peel was performed with electrocautery to the midcoronal plane. Due to the significant varus deformity the entire medial tibial plateau was exposed. The fat pad was removed while keeping the patellar tendon protected. The anterior distal femur synovium was removed for later visualization. The ACL and PCL were resected and the anterior horn of the lateral meniscus was transected. The knee was then flexed with the patella everted. Large osteophytes from the tibia were removed. Large osteophytes from the femur were removed. Using a step drill, and based on preoperative templating, the femoral canal was entered. This was done with a step drill without any difficulty. The intramedullary distal femoral cut guide was inserted, set to a 5 degree valgus cut and 9mm cut thickness. The distal femoral cut guide was then held in position and pinned. With the soft tissues protected, the distal cut was performed. This was passed over a few times to ensure a planar cut. I then turned attention to the tibia. The extramedullary guide was placed onto the leg. The distal aspect was slid medial to adjust for position of center of ankle and stay in line with shaft of the tibia. Approximately 3-5 degrees of posterior slope was kept in the proximal cutting guide. The center of the guide was aligned with the PCL. The stylus was used to assess cut thickness. The medial side, most involved side, was set for a 4mm cut. This was then held in position and pinned into place with 2 additional pins and a cross pin for stability. The medial and lateral collateral ligaments were protected and the cut was performed. With this completed, it was assessed and noted to be of appropriate dimensions. The guide was removed. A spacer block was inserted and the knee was brought into extension. The 7mm spacer block provided full extension, without hyperextension and with stability of both the medial and lateral collateral ligaments was assessed. The pins from the femur and the tibia were then removed. The distal femur was then sized. The anterior stylus was placed onto the lateral ridge of the anterior femur. This indicated a size 6 femur. The external rotation of the guide was adjusted to 3 degrees to match the epicondylar axis, perpendicular to Isaiah?s line. The 4-in-1 cutting guide was the placed. The posterior medial femur cut was evaluated and appeared of good thickness. The spacer block was inserted underneath the cutting guide and stability was confirmed in 90 degrees of flexion. An monet wing was used to confirm appropriate position of the anterior cut to avoid notching. This cutting guide was ensured to be flush on the cut surface and then pinned into place with headed pins. While protecting the soft tissues, quad tendon, and collateral ligaments, the anterior and posterior cuts were performed with a saw. The central two pins were removed and the posterior and anterior chamfers were cut next. The notch-cutting guide was placed. This was pinned to lateralize the femoral component as much as possible while keeping it flush on the cut surface. This was then pinned into position. A reciprocating saw was used to make the notch cut. A rasp smoothed the cut surfaces. The medial and lateral menisci were removed. A trial femoral component was then inserted, impacted down to the cut surfaces, and the lug holes were drilled. A provisional trial tibial component was placed and the knee was brought through range of motion. The polyethylene was trialed until there was good flexion and extension with excellent stability to the medial and lateral collaterals. The patella was tracking without thumbs. A size 8mm polyethylene component provided the best range of motion and stability with less than 2mm gapping with medial and lateral stress and full extension without significant hyperextension. The tibial cut surface was fully exposed. The tibia was then sized as a 5. The tibia had been previously marked during trialing to correspond to the center of the tibial component to help with rotation. The trial was aligned to this lily, approximately rotated to the medial 1/3rd of the tibial tubercle. The trial was pinned into place. The tibia was prepared with a reamer and a keel punch and lug holes. The knee was then brought into extension and the patella was measured as 26mm. Using the patellar clamp and cut guide, this was resected to a flat surface with at least 13mm of thickness remaining. The size 38 patella fit the best. This was oriented and then clamped into position. The lugs were drilled. The trial components were removed. The final components were opened on the back table. The periosteal and capsular tissues, especially posteriorly, around the knee were then systematically injected with a periarticular cocktail consisting of 50cc 0.25% Marcaine, 30mg Ketorolac, 20cc of Exparal and 50cc of injectable saline. The knee was thoroughly irrigated with a pulse lavage and dried. Irrisept was also used to irrigate the tissues. On the back table, with the implants opened, the cement was mixed. One batch of high viscosity cement was prepared with vacuum assistance. After the cement was ready a small amount was placed on the cut surface of the patella and the patellar button was clamped into position and held. While the cement was hardening, the cementless knee components were placed. Starting with the tibial component, the tibia was subluxed anteriorly and the lug holes of the component were lined up. The tibia was then impacted with an impactor and mallet until the tibial component was in contact with the tibia. The final polyethylene component was inserted. Then, the femoral component was inserted. The lug holes were aligned and the component was impacted into position. The knee was irrigated with Surgiphor betadine solution. This was allowed to sit in the knee for 3 minutes. It was then thoroughly irrigated with saline. After the cement had finally cured, approximately 15min, the clamp was removed from the patella and the knee was taken through range of motion. The patella was tracking with a no-thumbs technique. The capsule was then reapproximated with a No. 1 Vicryl at multiple locations. The capsule was finally closed with a No. 2 Stratafix, barbed suture. The second dosing of 1g TXA was started. Deep tissues were then reapproximated with 0 Vicryl and 2-0 Vicryl. The skin was closed with a running 3-0 Monocryl in a subcuticular fashion. This was reinforced with skin glue. A Mepilex silver dressing was applied along with a hcyi-cz-xaddn HALINA wrap. A CryoCuff was applied. Kirsten was transferred to the hospital bed without difficulty an suffering no apparent complication. She has a good prognosis. Physical therapy will start today and without restrictions, weight-bearing as tolerated. Aspirin 81mg BID will be used for DVT prophylaxis.
== END 2021-08-07 15:50 | disposition home or self-care (01) ==
LOC: SUR 08:57
PROVIDERS: PCP Internal Medicine; Visit Provider Student in an Organized Health Care Education/Training Program
PROC: (CPT 27447; principal; 2021-08-07 11:30)
DX: M17.12 Unilateral primary osteoarthritis, left knee (principal); I48.91 Unspecified atrial fibrillation; F41.0 Panic disorder [episodic paroxysmal anxiety]
CPT/HCPCS: 27447; 76942; 97162; 97530; J1100; J1885; J2001; J2250; J2405; J2704

== ENCOUNTER 2021-08-20 10:44 | Outpatient (CLI) | payer OTHER, SELFPAY ==
--- NOTE | 2021-08-20 10:30 | DI.RAD_ITS ---
Exam(s) XR KNEE LT 1V XR STANDING ALIGNMENT EXAM: XR STANDING ALIGNMENT CLINICAL HISTORY: ANNUAL F/U L TKA. TECHNIQUE: 2D digital imaging was performed. Standing AP views were performed from the pelvis throu gh the ankles. COMPARISON: CR XR standing alignment from 06/24/2018 CR XR KNEE LT 4V AP,LAT,ALISA,PAT from 07/26/2021 CR XR KNEE LT 1V from 08/20/2021 FINDINGS: BONES: No acute fracture is present. No bony destructive lesion is seen. JOINTS: Knees: Left total knee prosthesis. No abnormal bony lucencies. Mild anterior soft tissue sw elling. Mild medial femoral tibial joint space narrowing and periarticular spurring of the right kne e. The ankle and hip joints are unremarkable. SOFT TISSUE: Normal. IMPRESSION: Status post left total knee prosthesis. No significant leg length discrepancy. DATA REPOSITORY: RADIATION DOSE DELIVERED:
== END 2021-08-20 10:45 | disposition home or self-care (01) ==
LOC: DIORS 10:45
PROVIDERS: PCP Internal Medicine; Referring Provider Internal Medicine; Visit Provider Physician Assistant
DX: Z96.652 Presence of left artificial knee joint (principal); Z47.1 Aftercare following joint replacement surgery; M79.89 Other specified soft tissue disorders
CPT/HCPCS: 73560; 77073

== ENCOUNTER 2021-10-23 07:10 | Outpatient (RCR) | payer OTHER, SELFPAY ==
[2021-10-23 08:34] LABS: ALT 23 U/L (14-59); AST 17 U/L (15-37); Albumin 4.1 g/dL (3.4-5.0); Alkaline Phosphatase 83 U/L (46-116); Anion Gap 6.3 mmol/L (3-11); BUN 14 mg/dL (7-18); Bilirubin, Total 0.5 mg/dL (0.2-1.0); CO2 32.7 mmol/L (21.0-32.0); CREATININE 0.5 mg/dL (0.55-1.02); Calcium 8.6 mg/dL (8.5-10.1); Calculated LDL 162 mg/dL (<100); Chloride 101 mmol/L (98-107); Cholesterol 244 mg/dL (<200); Glucose 127 mg/dL (74-106); HDL Cholesterol 60 mg/dL (40-60); Potassium 3.5 mmol/L (3.5-5.1); Sodium 140 mmol/L (136-145); TSH 2.08 uIU/mL (0.36-3.74); Total Protein 7.2 g/dL (6.4-8.2); Triglyceride 114 mg/dL (<150)
[2021-10-24 11:44] LABS: Hepatitis C Ab w Rflx HCV PCR Negative (Negative)
== END 2021-11-18 23:59 | disposition home or self-care (01) ==
LOC: INF 07:10
PROVIDERS: PCP Internal Medicine; Visit Provider Internal Medicine
DX: Z00.00 Encounter for general adult medical examination without abnormal findings (principal); Z11.59 Encounter for screening for other viral diseases
CPT/HCPCS: 36415; 80053; 80061; 86803; 84443

== ENCOUNTER → 2021-12-07 00:32 | Outpatient (CLI) | payer OTHER, SELFPAY ==
--- NOTE | 2021-12-07 12:00 | DI.MAMMO_ITS ---
Exam(s) MAMMO SCREENING EXAM: MAMMO SCREENING CLINICAL HISTORY: SCREENING MAMMO FOR BREAST CANCER Z12.31 TECHNIQUE: Mammograms were interpreted according to the usual protocol including computer analysis w [employer] CAD system, tomosynthesis and C-view imaging. COMPARISON: No exams were available for comparison. This is a baseline examination. FINDINGS: The breasts are composed of scattered fibroglandular densities, Breast Density category B. No suspicious masses or suspicious microcalcifications are seen. No skin thickening or abnormal axillary lymph nodes are seen. There has been no significant change from prior exams. IMPRESSION: BI-RADS Category 1, Negative mammogram Yearly screening mammography is recommended. Breast Density - Category B, scattered fibroglandular densities. A negative radiographic report should not delay biopsy if a dominant or clinically suspicious mass is present. Up to ten percent of cancers are not identified on mammography. A negative report may reinforce clinical impression. Adenosis and dense breasts may obscure an underlying neoplasm. False positive reports average 6 to 10%. Patient will receive a letter notifying them of these results.
== END ==
PROVIDERS: PCP Internal Medicine; Visit Provider Internal Medicine
DX: Z12.31 Encounter for screening mammogram for malignant neoplasm of breast (principal)
CPT/HCPCS: 77063; 77067

== ENCOUNTER 2022-02-11 15:52 | Outpatient (CLI) | payer OTHER, SELFPAY ==
--- NOTE | 2022-02-11 15:30 | DI.RAD_ITS ---
Exam(s) XR KNEE LT 3V AP,LAT,ALISA EXAM: XR KNEE LT 3V AP,LAT,ALISA CLINICAL HISTORY: eval anterior and lateral knee pain after TKA. TECHNIQUE: 2D digital imaging was performed. Three views. COMPARISON: CR XR KNEE LT 1V from 08/20/2021 FINDINGS: BONES: No acute fracture is present. No bony destructive lesion is seen. Has been no change in the a lignment of the total knee prosthesis. JOINTS: The knee is normally aligned. No joint effusion is seen. SOFT TISSUE: Mild anterior soft tissue swelling. IMPRESSION: Stable total knee prosthesis. DATA REPOSITORY: RADIATION DOSE DELIVERED:
== END 2022-02-11 15:53 | disposition home or self-care (01) ==
LOC: DIORS 15:52
PROVIDERS: PCP Internal Medicine; Referring Provider Internal Medicine; Visit Provider Student in an Organized Health Care Education/Training Program
DX: T84.84XA Pain due to internal orthopedic prosthetic devices, implants and grafts, initial encounter (principal); Z96.652 Presence of left artificial knee joint
CPT/HCPCS: 73562

== ENCOUNTER 2022-03-19 03:29 | Outpatient (RCR) | payer OTHER, SELFPAY ==
[2022-03-19 08:03] LABS: ALT 27 U/L (14-59); AST 15 U/L (15-37); Alkaline Phosphatase 79 U/L (46-116); Anion Gap 3.8 mmol/L (3-11); BUN 15 mg/dL (7-18); Bilirubin, Total 0.5 mg/dL (0.2-1.0); CO2 33.2 mmol/L (21.0-32.0); CREATININE 0.6 mg/dL (0.55-1.02); Calcium 8.7 mg/dL (8.5-10.1); Calculated LDL 162 mg/dL (<100); Chloride 103 mmol/L (98-107); Cholesterol 242 mg/dL (<200); Estimated GFR 105.94 (mL/min/1.73m2); Glucose 116 mg/dL (74-106); HDL Cholesterol 51 mg/dL (40-60); Potassium 4.2 mmol/L (3.5-5.1); Sodium 140 mmol/L (136-145); Triglyceride 146 mg/dL (<150)
[2022-03-19 08:10] LABS: Hemoglobin A1C 5.9 % (<5.7)
== END 2022-03-20 23:59 | disposition home or self-care (01) ==
LOC: INF 03:29
PROVIDERS: PCP Internal Medicine; Visit Provider Internal Medicine
DX: R73.9 Hyperglycemia, unspecified (principal); E78.00 Pure hypercholesterolemia, unspecified; E03.9 Hypothyroidism, unspecified; Z00.00 Encounter for general adult medical examination without abnormal findings
CPT/HCPCS: 36415; 80053; 80061; 83036; 84443

== ENCOUNTER 2022-04-05 10:15 | Day surgery (SDC) | payer OTHER, SELFPAY ==
--- NOTE | 2022-04-04 17:22 | ANES.PREOP_ITS ---
General Info Height: 5 ft 9 in Weight: 83.92 kg Body Mass Index (BMI): 27.3 Surgical Procedure: Operation Date: 04/05/22 11:35 Proposed Procedure Side Surgeon roby Sexton MD Meds Allergies and Home Medications Allergies Allergy/AdvReac Type Severity Reaction Status Date / Time Penicillins Allergy Intermediate Anaphylaxsi Verified 04/03/22 11:03 s Sulfa (Sulfonamide Allergy Intermediate Skin Rash Verified 04/03/22 11:03 Antibiotics) Home Medication Medication Instructions Recorded cholecalciferol (vitamin D3) 50 2,000 unit PO DAILY 09/05/14 mcg (2,000 unit) capsule (Vitamin D3) multivitamin-ferrous 1 ea PO DAILY 09/05/14 fumarate-folic acid 18 mg-400 mcg tablet (Daily Multiple) levothyroxine 50 mcg tablet 50 mcg PO DAILY #90 tabs 10/02/15 acetaminophen 500 mg capsule 1,000 mg PO Q8H PRN PRN #90 caps 08/07/21 ibuprofen 600 mg tablet 600 mg PO Q6H PRN pain #60 tabs 08/17/21 sertraline 25 mg tablet (Zoloft) 25 mg PO DAILY 02/11/22 magnesium gluconate 27.5 mg 27.5 mg PO DAILY 03/28/22 magnesium (500 mg) tablet vitamin C 30 mg-zinc citrate 1.1 1 tab PO DAILY 03/28/22 mg-elderberry 25 mg chewable tablet Current Visit Medications: Current Medications Generic Name Dose Route Start Last Admin Trade Name Freq PRN Reason Stop Dose Admin Ringer's Solution 1,000 mls @ 80 mls/hr 04/05/22 06:00 IV 05/04/22 23:59 INFUSION CR IV Miscellaneous Supplies 1 each 04/05/22 06:00 Iv Access IV 05/04/22 23:59 DIRECTED RC Sodium Chloride 0 ml 04/05/22 06:00 Normal Saline Flush 10 Ml Syr IV 05/04/22 23:59 PRN PRN Sodium Chloride 0 ml 04/05/22 06:00 Normal Saline 10 Ml Vial IJ 05/04/22 23:59 DIRECTED PRN Sterile Water 0 ml 04/05/22 06:00 Water,Injection,Sterile 10 Ml Vial IJ 05/04/22 23:59 DIRECTED PRN PFSH Active Problems Active Problems: Problem Status Onset Code Tendinitis of left quadriceps tendon M76.892 Instability of internal left knee prosthesis T84.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 stated during knee arthroscopy 18 years ago she woke up during it, states she is nervous for that to happen again. Surgical History Surgical History section H/O cardiac radiofrequency ablation last f/u with card 01/2021 Dr. Rader at [facility] S/P left knee arthroscopy Tobacco Smoking/Tobacco Use Status: Never Alcohol Alcohol Intake: current Alcohol intake frequency: holidays/special occasions only Substance Use Substance use: Never Substance use type: does not use Prental History History 3 Para 3 Hx # Term Pregnancies Multiple births Hx # Pregnancies Ectopic pregnancies AB induced Hx Number of Living Children AB spontaneous Vital Signs and Lab Results Lab Results Blood Type / Crossmatch: No Data to Display Complete Blood Count: No Data to Display Complete Metabolic Panel: Sodium 140 mmol/L (136-145) 03/19/22 07:15 Potassium 4.2 mmol/L (3.5-5.1) 03/19/22 07:15 Chloride 103 mmol/L (98-107) 03/19/22 07:15 Carbon Dioxide 33.2 mmol/L (21.0-32.0) H 03/19/22 07:15 BUN 15 mg/dL (7-18) 03/19/22 07:15 Creatinine 0.6 mg/dL (0.55-1.02) 03/19/22 07:15 Est GFR (CKD-EPI 2020) 105.94 (mL/min/1.73m2) 03/19/22 07:15 Calcium 8.7 mg/dL (8.5-10.1) 03/19/22 07:15 Albumin 4.0 g/dL (3.4-5.0) 03/19/22 07:15 Glucose 116 mg/dL (74-106) H 03/19/22 07:15 Hemoglobin A1c 5.9 % (<5.7) H 03/19/22 07:15 Liver Function Panel: Alanine Aminotransferase (ALT/SGPT) 27 U/L (14-59) 03/19/22 07: 15 Aspartate Amino Transf (AST/SGOT) 15 U/L (15-37) 03/19/22 07:15 Coagulation Panel: No Data to Display Cardiac Panel: No Data to Display Arterial Blood Gas: No Data to Display Venous Blood Gas: No Data to Display Pancreas Panel: No Data to Display Thyroid Panel: Thyroid Stimulating Hormone (TSH) 1.90 uIU/mL (0.36-3.74) 03/19 07:15 Infectious Disease: No Data to Display Blood Cultures: No Data to Display Toxicology Panel: No Data to Display Imaging and Studies Imaging and Studies Study information below may be from another EMR and interpreted by another provider. Please see original notes in EMR for more complete details. Echocardiogram Summary: : LVEF 60-65%, mild 1.7 cm2, HANS 1.9 cm2, mild MR, PAS 36 mmhg Pulmonary Function Summary: 2018: FVC 90%, FEV1 89%. Anesthesia Assessment and Plan Anesthesia History Personal History: No History of Anesthesia Complications and Other Family History: No Family History of Anesthesia Complications Exercise Tolerance Exercise Tolerance: Metabolic Equivalents>4 Implantable Cardiac Device Does patient have a Pacemaker or an ICD?: No Airway Exam Known Difficult Airway: No Mallampati Class: 2 Mouth Opening: Normal (> 3cm) Thyromental Distance: Greater than 3 cm Neck Range of Motion: Full ROM Neck Circumference: Normal Teeth Condition: Normal Dentition Anesthesia Plan Resuscitation Status: Full Code Anesthesia Technique: General Anesthesia Airway Planned: Natural Airway Monitors Used: Standard Monitors Preoperative Comments:: 56 yo female for screening colo. Sig PMHx: afib ablation - doing well, mild , rheumatoid arthritis, hypothyroid, anxiety. Previous Anes: - mask with OPA, mac 3 grade 1. - spinal for TKA.
--- NOTE | 2022-04-04 20:39 | W.PM.DSUDISC ---
Date of service: 04/05/22 Time of Service: 13:59 Discharge Plan Disposition Patient Disposition: Home Condition: Good Discharge Details Reason For Visit: Screening colonoscopy Attending Provider: Elvin Sexton Primary Care Provider: Jasmyne Poe Home Meds and New Rx's Prescriptions: Continued magnesium gluconate 27.5 mg magne- sium (500 mg) tablet 27.5 mg PO DAILY vit C-zinc citrate-elderberry 30-1.1-25 mg tablet,chewable 1 tab PO DAILY ibuprofen 600 mg tablet 600 mg PO Q6H PRN (Reason: pain) Qty: 60 0RF Rx Instructions: Take one tablet up to every 6 hours as needed sertraline [Zoloft] 25 mg tablet 25 mg PO DAILY cholecalciferol (vitamin D3) [Vitamin D3] 2,000 UNIT capsule 2,000 unit PO DAILY Label Comments: Patient states now taking 4000 Daily Multiple 1 EACH tablet 1 ea PO DAILY levothyroxine 50 MCG tablet 50 mcg PO DAILY Qty: 90 Rx Instructions: 1 tab po daily acetaminophen 500 mg capsule 1,000 mg PO Q8H PRN PRNQty: 90 0RF Discharge Instructions Instructions: Diverticulosis (DC) Additional Instructions: 1. If tolerated, consume a soft, low fiber diet for 1-2 days. 2[address] Do not drive, drink alcohol, operate machinery, make critical decisions, or do activities that require coordination or balance for 24 hours. 3. Because air was put into your colon during the procedure, expelling air from your rectum (passing gas or farting) is normal. 4. You may not have a bowel movement for 1-3 days because of the colonoscopy prep. This is normal. 5. Go directly to the emergency room if you notice any of the following: Develop chills (warm to touch), or if you have a thermometer and your temperature is above 101 Difficulty breathing or difficultly swallowing Persistent vomiting Severe abdominal pain, other than gas cramps Severe chest pain Black, tarry stools Any bleeding ? exceeding one tablespoon 6. Call your physician if the site where your intravenous was started becomes red, swollen, painful, and warm to touch. 7. Your physician has reviewed your pre-procedure medications. Please continue to take those medications as previously ordered. You will be given specific information/education regarding any changes to your medications before leaving. Activity:: Activity as Tolerated Diet:: As Tolerated Discharge Orders Discharge Orders: Discharge Order (Routine); Ordered 04/04/22 Ordered By: Elvin Sexton DS: Diagnosis Discharge Diagnosis (1) Encounter for screening colonoscopy: Status: Acute Asessment and Plan: Colonoscopy was normal. I recommend following up with another screening colonoscopy in 10 years
--- NOTE | 2022-04-04 20:46 | W.COLOREPORT ---
Date of service: 04/05/22 Time of Service: 14:01 Colonoscopy Report Date of procedure: 04/05/22 Pre-op diagnosis general: screening colonoscopy Post-op diagnosis procedure note: same Procedure: Screening colonoscopy Surgeon: Elvin Sexton Anesthesia Type: General:No Airway Estimated blood loss (mL): 0 Pathology: none sent Complications: None Disposition: same day Indications: Kirsten is 56 years old and she is undergoing her first screening colonoscopy. She is asymptomatic Prep: Miralax/Dulcolax Procedure Start Time: 13:29 Procedure End Time: 13:47 Retraction Time: 14 Procedure Description: After the induction of monitored anesthetic care, and with the patient in left lateral decubitus position, I began by performing an external anorectal exam.? Perineum and skin were normal, as was the anal verge.? There was no evidence of external hemorrhoids.? Next, I performed a digital rectal exam.? There was a small bump in the right posterior position..? Next, I advanced a colonoscope into the rectal vault.? I performed retroflexion.? There was what appeared to be a fibrosed internal hemorrhoid.? Using insufflation, I then advanced the colonoscope beyond the rectal folds and into the sigmoid colon before advancing towards the cecum.? The quality of the prep was excellent.? The scope was noted to be in the cecum by identification of the ileocecal valve and appendiceal orifice.? I then began withdrawing the colonoscope using repeated irrigation as necessary for full evaluation of the colonic mucosa. There were 2 or 3 sigmoid diverticula. ?Once the scope was withdrawn to the level of the rectum, great care was taken to examine portions of the rectal folds.? Finally, the scope was withdrawn. Because of the slight abnormality on the digital rectal exam, I did perform direct anoscopy with fiberoptic scope. Again, there appeared to be an old fibrosed internal hemorrhoid in the right posterior position. It did not have any features concerning for malignancy. The anesthetic was then allowed to wear off, and the patient was brought to the same-day surgery recovery unit.
[2022-04-05 10:30] VITALS: BP 129/69; PULSE 76; RESP 18; TEMP 36.7; O2SAT 100
[2022-04-05] MEDS: Lactated Ringers 1,000 ML 80 ML IV (11:16)
--- NOTE | 2022-04-05 12:54 | ANES.PREOP_ITS ---
General Info Date of Service Date Performed: 04/05/22 Height: 5 ft 9 in Weight: 85.2 kg Body Mass Index (BMI): 27.7 Surgical Procedure: Operation Date: 04/05/22 11:35 Proposed Procedure Side Surgeon roby Sexton MD Meds Allergies and Home Medications Allergies Allergy/AdvReac Type Severity Reaction Status Date / Time Penicillins Allergy Intermediate Anaphylaxsi Verified 04/05/22 10:48 s Sulfa (Sulfonamide Allergy Intermediate Skin Rash Verified 04/05/22 10:48 Antibiotics) Home Medication Medication Instructions Recorded cholecalciferol (vitamin D3) 50 2,000 unit PO DAILY 09/05/14 mcg (2,000 unit) capsule (Vitamin D3) multivitamin-ferrous 1 ea PO DAILY 09/05/14 fumarate-folic acid 18 mg-400 mcg tablet (Daily Multiple) levothyroxine 50 mcg tablet 50 mcg PO DAILY #90 tabs 10/02/15 acetaminophen 500 mg capsule 1,000 mg PO Q8H PRN PRN #90 caps 08/07/21 ibuprofen 600 mg tablet 600 mg PO Q6H PRN pain #60 tabs 08/17/21 sertraline 25 mg tablet (Zoloft) 25 mg PO DAILY 02/11/22 magnesium gluconate 27.5 mg 27.5 mg PO DAILY 03/28/22 magnesium (500 mg) tablet vitamin C 30 mg-zinc citrate 1.1 1 tab PO DAILY 03/28/22 mg-elderberry 25 mg chewable tablet Current Visit Medications: Current Medications Generic Name Dose Route Start Last Admin Trade Name Freq PRN Reason Stop Dose Admin Hyoscyamine Sulfate 0.125 mg 04/04/22 20:47 Hyoscyamine 0.125 Mg Sl/Oral/Chew SL DIRECTED PRN Ringer's Solution 1,000 mls @ 80 mls/hr 04/05/22 06:00 04/05/22 11:16 IV 05/04/22 23:59 80 mls/hr INFUSION RC Administration IV Miscellaneous Supplies 1 each 04/05/22 06:00 Iv Access IV 05/04/22 23:59 DIRECTED RC Ondansetron HCl 4 mg 04/04/22 20:47 Ondansetron 4 Mg/2 Ml Vial IVP Q4H PRN PRN Nausea / Vomiting Sodium Chloride 0 ml 04/05/22 06:00 Normal Saline Flush 10 Ml Syr IV 05/04/22 23:59 PRN PRN Sodium Chloride 0 ml 04/05/22 06:00 Normal Saline 10 Ml Vial IJ 05/04/22 23:59 DIRECTED PRN Sterile Water 0 ml 04/05/22 06:00 Water,Injection,Sterile 10 Ml Vial IJ 05/04/22 23:59 DIRECTED PRN PFSH Active Problems Active Problems: Problem Status Onset Code Panic attacks 12/19/15 F41.0 Late insomnia 12/19/15 F51.09 Uterine prolapse 05/20/17 N81.4 Rectocele 05/20/17 N81.6 Anxiety 12/19/15 F41.9 Acquired hypothyroidism 12/19/15 E03.9 Uterine fibroid D25.9 Abnormal uterine bleeding (AUB) N93.9 History of total left knee replacement Z96.652 Lumbar paraspinal muscle spasm M62.830 Painful total knee replacement, left T84.84XA, Z96.652 Instability of internal left knee prosthesis T84.023A Tendinitis of left quadriceps tendon M76.892 Medical History Medical History A-fib Medical History Comments:: Pt. stated during knee arthroscopy 18 years ago she woke up during it, states she is nervous for that to happen again. Surgical History Surgical History (Updated 04/05/22 @ 10:47 by Laure Lala) section H/O cardiac radiofrequency ablation last f/u with card 01/2021 Dr. Rader at [facility] History of total knee arthroplasty S/P left knee arthroscopy Tobacco Smoking/Tobacco Use Status: Never Alcohol Alcohol Intake: current Alcohol intake frequency: holidays/special occasions only Substance Use Substance use: Never Substance use type: does not use Prental History History 3 Para 3 Hx # Term Pregnancies Multiple births Hx # Pregnancies Ectopic pregnancies AB induced Hx Number of Living Children AB spontaneous Vital Signs and Lab Results Vital Signs Most Recent Vital Signs in EMR: Most Recent Vital Signs Temp Pulse Resp BP Pulse Ox 36.7 C 76 18 129/69 100 04/05/22 10:30 04/05/22 10:30 04/05/22 10:30 04/05/22 10:30 04/05/22 10:30 Lab Results Blood Type / Crossmatch: No Data to Display Complete Blood Count: No Data to Display Complete Metabolic Panel: Sodium 140 mmol/L (136-145) 03/19/22 07:15 Potassium 4.2 mmol/L (3.5-5.1) 03/19/22 07:15 Chloride 103 mmol/L (98-107) 03/19/22 07:15 Carbon Dioxide 33.2 mmol/L (21.0-32.0) H 03/19/22 07:15 BUN 15 mg/dL (7-18) 03/19/22 07:15 Creatinine 0.6 mg/dL (0.55-1.02) 03/19/22 07:15 Est GFR (CKD-EPI 2020) 105.94 (mL/min/1.73m2) 03/19/22 07:15 Calcium 8.7 mg/dL (8.5-10.1) 03/19/22 07:15 Albumin 4.0 g/dL (3.4-5.0) 03/19/22 07:15 Glucose 116 mg/dL (74-106) H 03/19/22 07:15 Hemoglobin A1c 5.9 % (<5.7) H 03/19/22 07:15 Liver Function Panel: Alanine Aminotransferase (ALT/SGPT) 27 U/L (14-59) 03/19/22 07: 15 Aspartate Amino Transf (AST/SGOT) 15 U/L (15-37) 03/19/22 07:15 Coagulation Panel: No Data to Display Cardiac Panel: No Data to Display Arterial Blood Gas: No Data to Display Venous Blood Gas: No Data to Display Pancreas Panel: No Data to Display Thyroid Panel: Thyroid Stimulating Hormone (TSH) 1.90 uIU/mL (0.36-3.74) 03/19 07:15 Infectious Disease: No Data to Display Blood Cultures: No Data to Display Toxicology Panel: No Data to Display Imaging and Studies Imaging and Studies Study information below may be from another EMR and interpreted by another provider. Please see original notes in EMR for more complete details. Echocardiogram Summary: : LVEF 60-65%, mild 1.7 cm2, HANS 1.9 cm2, mild MR, PAS 36 mmhg Pulmonary Function Summary: 2018: FVC 90%, FEV1 89%. Anesthesia Assessment and Plan Anesthesia History Personal History: No History of Anesthesia Complications Family History: No Family History of Anesthesia Complications Exercise Tolerance Exercise Tolerance: Metabolic Equivalents>4 Pertinent Negatives Pertinent Negatives: No Symptoms of GERD, No Major Cardiovascular Symptoms or Complaints, No Major Pulmonary Symptoms or Complaints and No History of CVA/TIA Cardiac & Pulmonary Exam Cardiac Exam: Normal S1/S2 Heart Sounds Pulmonary Exam: Clear Bilateral Breath Sounds Implantable Cardiac Device Does patient have a Pacemaker or an ICD?: No Airway Exam Known Difficult Airway: No Mallampati Class: 2 Mouth Opening: Normal (> 3cm) Thyromental Distance: Greater than 3 cm Neck Range of Motion: Full ROM Neck Circumference: Normal Teeth Condition: Normal Dentition ASA Classification ASA Score: ASA 3 Emergency Case?: No NPO Status NPO Status: NPO Clears >2 hours, Solids >8 hours Anesthesia Plan Resuscitation Status: Full Code Anesthesia Technique: General Anesthesia Airway Planned: Natural Airway Monitors Used: Standard Monitors Preoperative Comments:: Cardiac Ablation October 03 2020, Hx Atrial Fibrillation
[2022-04-05 12:57] VITALS: BMI 27.7
--- NOTE | 2022-04-05 13:53 | W.ANESPOSTOP ---
Postoperative Evaluation Date, Time and Location Date Performed: 04/05/22 Time Performed: 13:54 Patient Location: Day Surgery Unit Vital Signs Most Recent Imported Vital Signs: Most Recent Vital Signs Temp Pulse Resp BP Pulse Ox 36.7 C 76 18 129/69 100 04/05/22 10:30 04/05/22 10:30 04/05/22 10:30 04/05/22 10:30 04/05/22 10:30 Most Recent Manually Entered Vital Signs: Adult Blood Pressure: 116/63 Heart Rate: 63 Respirations: 12 Oxygen Saturation (%): 99 Temperature (C): 36.0 C Pain Score (0-10 Scale): 0 Assessment Mental Status: Awake (Alert & Oriented to Patient Baseline) Airway and Respiratory Function: Patent airway with normal (patient baseline) respiratory exam Cardiovascular Function: Hemodynamically Stable Hydration Status: Adequately Hydrated Nausea & Vomiting: No Nausea or Vomiting Pain: Pt. Denies Any Pain Peripheral Nerve Block: Patient did not receive a nerve block
[2022-04-05 13:55] VITALS: BP 116/63; PULSE 62; PULSE 63; RESP 12; RESP 16; TEMP 36; TEMPC 36; O2SAT 100; O2SAT 99
[2022-04-05 14:24] VITALS: BP 135/77; PULSE 66; RESP 16; TEMP 36.2; O2SAT 98
== END 2022-04-05 14:47 | disposition home or self-care (01) ==
PROVIDERS: PCP Internal Medicine; Visit Provider Surgery
PROC: 0DJD8ZZ Inspection of Lower Intestinal Tract, Via Natural or Artificial Opening Endoscopic (ICD-10-PCS; CPT 45378; principal; 2022-04-05 11:30)
DX: Z12.11 Encounter for screening for malignant neoplasm of colon (principal); K64.8 Other hemorrhoids
CPT/HCPCS: 45378

== ENCOUNTER 2022-05-13 01:46 | Outpatient (CLI) | payer OTHER, SELFPAY ==
--- NOTE | 2022-05-13 15:10 | DI.US_ITS ---
APPROVED REPORT EXAM: Comprehensive 2D, Doppler, and color-flow Echocardiogram Patient Location: Out-Patient Erp Technical Lead: Maria De Jesus Brown RDCS (AE) Indications: Atrial fibrillation Other Information Study Quality: Good Conclusion Normal left ventricular wall thickness and chamber size. Estimated ejection fraction is 60 to 65%. Wall motion is normal Normal right ventricular size and systolic function Both atria are normal in size There is no structural or hemodynamically significant valvular disease Normal estimated right ventricular systolic pressure 27 mmHg Patient was in sinus rhythm throughout the study Wall motion Left Ventricle The left ventricle is normal size. The left ventricular systolic function is normal. The left ventric ular ejection fraction is within the normal range. There is normal left ventricular wall thickness. T here is normal LV segmental wall motion. There is no ventricular septal defect visualized. LVEF is 60 -65%. Right Ventricle The right ventricle is normal size. The right ventricular systolic function is normal. The RVSP is 27 .1 mmHg. Atria The left atrium size is normal. The right atrium size is normal. The interatrial septum is intact wit h no evidence for an atrial septal defect. Aortic Valve The aortic valve is normal in structure. Aortic valve is trileaflet. There is no aortic valvular sten osis. No aortic regurgitation is present. Mitral Valve The mitral valve is normal in structure. No evidence of mitral valve stenosis. Trace mitral regurgita tion. Tricuspid Valve The tricuspid valve is normal in structure. There is no tricuspid valve stenosis. Trace tricuspid reg urgitation. Pulmonic Valve The pulmonary valve is normal in structure. There is no pulmonic valvular stenosis. Trace pulmonic re gurgitation. Great Vessels The aortic root is normal in size. The ascending aorta is normal in size. Aortic arch is normal in ca liber. IVC is normal in size and collapses >50% with inspiration. Pericardium There is no pericardial effusion. 2D Dimensions IVSD d PLAX 1.02 cm F: 0.6-1.0 LV Vol A2C d MOD 89.3 mL LVPW d PLAX 1.04 cm F: 0.6 - 1.0 LV Vol A4C d MOD 92.5 mL LVID d PLAX 4.45 cm F: 3.8 - 5.2 LA vol/ BSA A2C s A-L 34.8 mL/m2 LVDs 2.85 cm F: 2.2 - 3.5 LA vol/ BSA A4C s A-L 25.4 mL/m2 Ao Root d 2.67 cm F: 2.7 - 3.3 LA Vol/ BSA Biplane s A-L 29.9 mL/m2 RA Area A4C 12.50 cm2 LA Area A4C s MOD 18.50 cm2 RA Vol/ BSA A4C s A-L 14.0 mL/m2 LA Area A2C s MOD 21.56 cm2 Ao Asc Diam d 3.19 cm F: 2.3 - 3.1 LV EF A4C MOD 65.0 % LV EF Teichholz 65.2 % LV EF A2C MOD 60.3 % LVEF (Gagnon's) 60.67 % F: 54 - 74 LV EF Biplane MOD 60.7 % LV Volume 68.20 mL F: 46 - 106 SV 55.15 mL LV Volume Index 34.10 mL/m2 F: 29 - 61 SV Index 27.60 mL/m2 LV Vol Biplane MOD 90.9 mL FS 35.50 % M-Mode TAPSE 2.23 cm (M/F) >1.7 LV Diastology MV E' medial 0.072 (>0.07 m/s) E/A Ratio 1.7 LV E/e MED 12.00 (<14) MV E Vmax 0.87 (0.4-1.3 m/s) MV E' lateral 0.097 (>0.1 m/s) MV A Vmax 0.50 (0.4-1.3 m/s) LV E/e LAT 8.95 (<14) MV E/A Ratio 1.67 MV E/E' medial 12.02 MV E/E' lateral 8.98 Aortic Valve LVOT Area 2.88 cm2 AoV Area Vmax 2.42 cm2 LVOT Vmax 1.31 m/s AoV Area/ BSA (Vmax) 1.21 cm2/m2 LVOT Mean Boogie. 0.83 m/s HANS Mean Boogie. 2.27 cm2 LVOT Peak Grad 6.9 mmHg HANS Mean Boogie. Index 1.14 cm2/m2 LVOT Mean Grad 3.3 mmHg LVOT VTI 0.306 m LVOT Diam s 1.90 cm AoV Vmax 1.56 m/s Velocity Ratio 0.84 AoV Mean Boogie. 1.05 m/s AoV Peak Grad 9.7 mmHg LVOT SV 87.97 mL AoV Mean Grad 4.9 mmHg AoV VTI 0.330 m AoV Area VTI 2.66 cm2 AoV Area/ BSA (VTI) 1.33 cm/m2 Mitral Valve MV DT 211 (160-240 msec) MV PHT 61 msec MV Area PHT 3.59 cm2 MV VTI 0.396 m MV Area VTI 2.22 (4.0-6.0 cm2) Pulmonary Valve PV Vmax 1.10 (0.5-1.5 m/s) RVOT Peak Gr. 3.06 mmHg PV Peak Grad 4.8 mmHg RVOT Mean Gr. 1.60 mmHg PV Mean Grad 2.2 mmHg RVOT VTI 0.160 m PV VTI 0.232 m RVOT Vmax 0.88 m/s Tricuspid Valve TR Peak Grad 24.1 mmHg TR Vmax 2.46 m/s RA Pressure 3.00 mmHg RVSP (TR) 27.1 mmHg
== END 2022-05-13 02:06 ==
LOC: DI 01:46
PROVIDERS: PCP Internal Medicine; Visit Provider Internal Medicine
DX: I48.91 Unspecified atrial fibrillation (principal)
CPT/HCPCS: 93306

== ENCOUNTER 2022-08-26 15:38 | Outpatient (CLI) | payer OTHER, SELFPAY ==
--- NOTE | 2022-08-26 15:00 | DI.RAD_ITS ---
Exam(s) XR KNEE LT 2V AP,LAT EXAM: XR KNEE LT 2V AP,LAT INDICATION: annual f/u L TKA. COMPARISON: CR XR KNEE LT 3V AP,LAT,ALISA from 02/11/2022 TECHNIQUE: 2D digital imaging was performed. Two views. FINDINGS: There has been no change in the total knee prosthesis or appearance of the surrounding bone. DATA REPOSITORY: RADIATION DOSE DELIVERED:
== END 2022-08-26 15:39 | disposition home or self-care (01) ==
LOC: DIORS 15:39
PROVIDERS: PCP Internal Medicine; Referring Provider Internal Medicine; Visit Provider Student in an Organized Health Care Education/Training Program
DX: Z96.652 Presence of left artificial knee joint (principal)
CPT/HCPCS: 73560

== ENCOUNTER 2023-05-16 01:12 | Outpatient (RCR) | payer OTHER, SELFPAY ==
[2023-05-16 07:00] LABS: Abs Immature Grans 0.01 10^3/uL (0.0-0.06); Absolute Basophil Count 0.04 10^3/uL (0.0-0.2); Absolute Eosinophil Count 0.13 10^3/uL (0.0-0.7); Absolute Lymphocyte Count 1.56 10^3/uL (1.2-3.4); Absolute Monocyte Count 0.38 10^3/uL (0.1-0.8); Absolute Neutrophil Count 3.71 10^3/uL (1.2-6.7); Basophils % 0.7; Eosinophils % 2.2; HCT 41.6 % (36.0-46.0); HGB 14.1 g/dL (11.2-15.7); Immature Grans % 0.2; Lymphocytes % 26.8; MCH 29.9 pg (27.0-33.0); MCHC 33.9 % (32.0-36.0); MCV 88 fL (80-95); MPV 9.1 fL (8.0-11.0); Monocytes % 6.5; Neutrophils % 63.6; Platelet Count 233 10^3/uL (130-400); RBC 4.72 10^6/uL (3.93-5.22); RDW 12.6 % (11.7-14.6); WBC 5.83 10^3/uL (4.4-10.8)
[2023-05-16 07:19] LABS: ALT 22 U/L (14-59); AST 15 U/L (15-37); Albumin 4.1 g/dL (3.4-5.0); Alkaline Phosphatase 69 U/L (46-116); Anion Gap 4.1 mmol/L (3-11); BUN 18 mg/dL (7-18); Bilirubin, Total 0.6 mg/dL (0.2-1.0); CO2 32.9 mmol/L (21.0-32.0); CREATININE 0.6 mg/dL (0.55-1.02); Calcium 8.7 mg/dL (8.5-10.1); Calculated LDL 142 mg/dL (<100); Chloride 105 mmol/L (98-107); Cholesterol 210 mg/dL (<200); Estimated GFR 104.63 (mL/min/1.73m2); Glucose 112 mg/dL (74-106); HDL Cholesterol 51 mg/dL (40-60); Potassium 3.9 mmol/L (3.5-5.1); Sodium 142 mmol/L (136-145); TSH 2.05 uIU/mL (0.36-3.74); Total Protein 7.3 g/dL (6.4-8.2); Triglyceride 89 mg/dL (<150)
[2023-05-16 07:33] LABS: Hemoglobin A1C 5.7 % (<5.7)
[2023-05-16 10:24] LABS: Ferritin 128 ng/mL (8-252)
[2023-05-20 16:06] LABS: Vitamin D 25 Total 54.9 ng/mL (30-100)
== END 2023-05-21 23:59 | disposition home or self-care (01) ==
LOC: INF 01:12
PROVIDERS: PCP Internal Medicine; Visit Provider Internal Medicine
DX: Z00.00 Encounter for general adult medical examination without abnormal findings (principal); E03.9 Hypothyroidism, unspecified; R73.03 Prediabetes; Z51.81 Encounter for therapeutic drug level monitoring; G25.81 Restless legs syndrome
CPT/HCPCS: 36415; 80053; 80061; 82306; 82728; 83036; 84443; 85025

== ENCOUNTER 2023-06-03 03:07 | Outpatient (RCR) | payer OTHER, SELFPAY ==
[2023-06-03 18:20] LABS: Estradiol 18 pg/mL (See Note)
[2023-06-03 18:44] LABS: FSH 56.8 mIU/mL (See Note)
== END 2023-06-19 23:59 | disposition home or self-care (01) ==
LOC: INF 03:07
PROVIDERS: PCP Internal Medicine; Visit Provider Obstetrics & Gynecology Gynecology
DX: F41.9 Anxiety disorder, unspecified (principal); N95.1 Menopausal and female climacteric states
CPT/HCPCS: 36415; 82670; 83001

== ENCOUNTER 2023-06-19 16:05 | Outpatient (REF) | payer OTHER, SELFPAY ==
--- NOTE | 2023-06-19 15:30 | PAPFT_PTH ---
PATIENT: Kirsten Almaguer LOC: [facility] U#:[id number] AGE/SX: 58/F ROOM: RE06/19/[address]: Jasmyne Calvin : 1965 BED: DIS: 06/19/2023 SPEC #: [id number] RECD: 06/19/23 18:08 STATUS: JIMI REGuero #: [id number] JASON: 06/19/23 15:[address]: Jasmyne Calvin DEPT: [facility] Cytology RECD BY: Cindy Albert ENTERED: 06/19/23 18:08 SP TYPE: PAPFT OTHR DR: Jasmyne Poe Tissues: 1 - CX/ENDOCX FOR PAP SMEARS Procedures: PAP THIN PREP/UVM Screening HPV DNA PROBE Comments: [id number]
== END 2023-06-19 16:06 | disposition home or self-care (01) ==
LOC: LBN 16:05
PROVIDERS: PCP Internal Medicine; Visit Provider Obstetrics & Gynecology Gynecology
DX: Z12.4 Encounter for screening for malignant neoplasm of cervix (principal); Z11.51 Encounter for screening for human papillomavirus (HPV)
CPT/HCPCS: 88142; 87624

== ENCOUNTER 2023-12-03 01:46 | Outpatient (CLI) | payer OTHER, SELFPAY ==
--- OUTSIDE RECORDS SUMMARY | 2023-12-03 02:05 | XMS_ITS | Clinical Summary ---
Author Organization [facility] Address [facility] [place] [address] Care Team Providers Care Bacteriologist Medical Name Role Phone Unavailable Primary Care Provider Unavailabl e Allergies Active Allergy Reactions Criticality Noted Date Comments Penicillins Anaphylaxis High 05/04/2019 Tolerates cephalexin Sulfa (Sulfonamide Antibiotics) Rash Medium 05/04/2019 Medications Medication Sig Dispensed Refills Start Date End Date Status cholecalciferol, Vitamin D3, 50 mcg (2,000 unit) Capsule Take 2,000 Units by mouth. 09/05/2014 Active [id number] OLIC ACID ORAL Take by mouth. 09/05/2014 Active levothyroxine (Synthroid) 50 mcg Tablet 05/02/2020 Active Magnesium Oxide 250 mg magnesium Tablet Take 500 mg by mouth. 03/04/2019 Active melatonin 3 mg Tablet Take by mouth. Active vit C/Zn gluc/herbal no.325 (ELDERBERRY ZINC VIT C MM) by Transmucosal route. Active sertraline (Zoloft) 25 mg Tablet 12/25/2021 Active Active Problems Problem Noted Date Diagnosed Date Hallux valgus of right foot 04/04/2021 Osteoarthrosis 06/07/2020 Overview (06/07/2020): Both knees, right greater than left Mild aortic stenosis 03/20/2020 Undifferentiated connective tissue disease 07/21 PAF (paroxysmal atrial fibrillation) 03/23/2018 Overview (06/07/2020): Echo done: mild LVH, mildly to moderately elevated pulmonary systolic pressure. PFT's normal 02/2018 Acquired hypothyroidism 12/19/2015 Anxiety 12/19/2015 Overview (06/07/2020): Rare panic attacks, last in 02/2017 On sertraline Social History Tobacco Use Types Packs/Day Years Used Date Smoking Tobacco: Never Smokeless Tobacco: Never Sex and Gender Information Value Date Recorded Sex Assigned at Not on file Gender Identity Not on file Sexual Orientation Not on file Last Filed Vital Signs Vital Sign Reading Time Taken Comments Blood Pressure 132/72 04/25/2022 3:24 PM EST Pulse 67 04/25/2022 3:24 PM EST Temperature 36.7 ??C (98 ??F) 04/25/2022 3:24 PM EST Respiratory Rate - - Oxygen Saturation 100% 04/25/2022 3:24 PM EST Inhaled Oxygen Concentration - - Weight 87.2 kg (192 lb 3.2 oz) 04/25/2022 3:24 P M EST Height 175.3 cm (5' 9) 04/25/2022 3:24 PM EST Body Mass Index 28.38 04/25/2022 3:24 PM EST Plan of Treatment Upcoming Encounters Date Type Department Care Team (Late st Contact Info) Description 12/18/2023 3:00 PM EDT Appointment XRay at [address] [place] [phone] 12/18/2023 4:00 PM EDT Office Visit Orthopaedics at [facility] [place] [phone] Laurent Castanon MD [facility] [place] [address] Health Maintenance Due Date Last Done Comments CT Colonography 1966 Colonoscopy 1966 Colorectal Cancer Screening 1966 FIT DNA 1966 FIT 1966 Sigmoidoscopy (10 year) with FIT yearly 1966 Sigmoidoscopy 1966 HIV screen 1984 Hepatitis C Screening 1984 Hepatitis B vaccine (0-59 yrs) (1) 1985 Tdap adult 1985 Tetanus vaccine 1985 HPV test 1996 PAP Smear 1996 Breast Cancer Share Decision Needed 2006 Breast Cancer screening 2006 Diabetes Screening (HgbA1C or Glucose) 2006 Zoster vaccine (1 of 2) 2016 Advance Directive 2021 Covid-19 Vaccine (2 - season) 2022 Influenza (Flu) vaccine (1 o f 1 - Influenza standard series) 12/21/2023
--- OUTSIDE RECORDS SUMMARY | 2023-12-03 02:05 | XMS_ITS | Encounter Summary ---
Author Organization [facility] Address [address] [place] [address] Care Team Providers Care Machine Adjuster Name Role Phone Jasmyne Poe MD Primary Care Provider + Reason for Visit * Reason Onset Date Comments Results 05/28/2023 Enter/Edit Encounter Details Date Type Department Care Team (Late st Contact Info) Description 05/28/2023 Orders Only [facility] Adult Primary Care - [address] [address] Jasmyne Poe MD [address] [place] [phone] Social History Tobacco Use Types Packs/Day Years Used Date Smoking Tobacco: Never Smokeless Tobacco: Never Comments:a little in high [employer] hool Alcohol Use Standard Drinks/Week Comments Not Currently 0 (1 standard drink = 0.6 oz pur e alcohol) [facility] Utilities Answer Date Recorded In the past 12 months has [employer] electric, gas, oil, or water company threatened to shut off services in your home? No 05/19/2023 AUDIT-C Answer Date Recorded Q1: How often do you have a drink containing alc ohol? Monthly or less 09/26/2020 Q2: How many drinks containi ng alcohol do you have on a typical day when you are drinking? 1 or 2 09/26/2020 Q3: How often do you have si x or more drinks on one occasion? Not asked 09/26/2020 Overall Financial Resource Strain (CARDIA) Answe r Date Recorded How hard is it for you to pa y for the very basics like food, housing, medical care, and heating? Not hard at all 05/19/2023 PHQ-2 Answer Date Recorded PHQ-2 SUBTOTAL 6 05/15/2023 Hunger Vital Sign Answer Date Recorded Within the past 12 months, y ou worried that your food would run out before you got the money to buy more. Never true 05/19/19 24 Within the past 12 months, t he food you bought just didn't last and you didn't have money to get more. Never true 05/19/2023 PRAPARE - Transportation Answer Date Re corded In the past 12 months, has l ack of transportation kept you from medical appointments or from getting medications? No 04/22 In the past 12 months, has l ack of transportation kept you from meetings, work, or from getting things needed for daily living? No 05/19/2023 Housing Stability Vital Sign Answer Juanito e Recorded In the last 12 months, was t here a time when you were not able to pay the mortgage or rent on time? No 05/19/2023 In the last 12 months, how many places have you lived? 1 05/19/2023 In the last 12 months, was t here a time when you did not have a steady place to sleep or slept in a long term (including now)? No 05/19/2023 Interpersonal Safety Answer Date Record ed How often does anyone, toi harvey family, hit, punch or physically hurt you? 05/19/2023 How often does anyone, toi harvey family, insult, scream, curse or threaten to hurt you? 05/19/2023 Sex and Gender Information Value Date Recorded Sex Assigned at Not on file Gender Identity Female 06/02/2019 15:13 EST Sexual Orientation Not on file documented as of this encounter Functional Status Functional Status Response Date of Assess ment Are you deaf or do you have serious difficulty h earing? No 10/03/2020 Are you blind or do you have serious difficulty seeing, even when wearing glasses? No 10/03/2020 Do you have serious difficul ty walking or climbing stairs? (5 years old or older) No 10/03/2020 Do you have difficulty dress ing or bathing? (5 years old or older) No 10/03/2020 Because of a physical, menta l, or emotional condition, do you have difficulty doing errands alone such as visiting a doctor's office or shopping? (15 years old or older) No 10/03/2020 Cognitive Status Response Date of Assessm ent Because of a physical, menta l, or emotional condition, do you have serious difficulty concentrating, remembering, or making decisions? (5 years old or older) No 10/03/2020 documented as of this encounter Plan of Treatment Upcoming Encounters Date Type Department Care Team (Late st Contact Info) Description 05/20/2024 14:45 EST Office Visit [facility] Primary [facility] - [address] [address] Jasmyne Poe MD [address] [place] [phone] documented as of this encounter Procedures Procedure Name Priority Date/Time Associated Diagnosis Comments VITAMIN D (25,[place]) Routine 05/16/2023 6:3 5 EST COMPLETE BLOOD COUNT Routine 05/16/2023 6:35 EST TSH Routine 05/16/2023 6:35 EST HEMOGLOBIN A1C Routine 05/16/2023 6:35 EST FERRITIN Routine 05/16/2023 6:35 EST LIPID PROFILE (INCLUDES CHOLESTEROL, TRIGLYCERIDES, HDL, LDL) Routine 05/16/2023 6:35 EST COMPREHENSIVE METABOLIC PANEL (CMP) Routine 05/16/2023 6:35 EST documented in this encounter Results * FERRITIN (05/16/2023 6:35 EST) Ferritin, External 128 8 - 252 ng/mL [facility] Blood VENOUS BLOOD / Unknown 05/16/2023 6:35 EST Historical Provider CHEMISTRY & BLOOD GAS ORDERABLES [facility] * COMPLETE BLOOD COUNT (05/16/2023 6:35 EST) HCT, External 41.6 36.0 - 46.0 % [facility] MCH, External 29.9 27.0 - 33.0 g/dL [facility] MCV, External 88 80 - [address] [facility] MCHC, External 29.9 27.0 - 33.0 g/dL [facility] Hemoglobin, External 14.1 11.2 - 15.7 g/dL [facility] WBC, External 5.83 4.4 - 10.8 uL [facility] RBC, External 4.72 3.93 - 5.22 uL [facility] PLT, External 233 130 - 400 uL [facility] RDW-CV, External 12.6 12.7 - 14.6 % [facility] Blood VENOUS BLOOD / Unknown 05/16/2023 6:35 EST Historical Provider HEMATOLOGY & PF4 ORDERABLES Performing Organization Address [facility] Co de Phone Number [facility] * VITAMIN D (25,[place]) (05/16/2023 6:35 EST) 25OH Vitamin D Tot, External [facility] Blood VENOUS BLOOD / Unknown 05/16/2023 6:35 EST Historical Provider CHEMISTRY & BLOOD GAS ORDERABLES [facility] * HEMOGLOBIN A1C (05/16/2023 6:35 EST) Hemoglobin A1C, External 5.7 <5.7 % [facility] Est Avg Glucose, External 112 74 - 106 mg/dL [facility] Comment:H Blood VENOUS BLOOD / Unknown 05/16/2023 6:35 EST Historical Provider CHEMISTRY & BLOOD GAS ORDERABLES [facility] * COMPREHENSIVE METABOLIC PANEL (CMP) (05/16/2023 6:35 EST) GFR, Calculated, External 104.63 1.73m2 mL/min [facility] Glucose, Serum, External 112 74 - 106 mg/dL [facility] Comment:H Albumin, External 4.1 3.4 - 5.0 g/dL [facility] Total Alkaline Phosphatase, External 69 46 - 116 U/L [facility] ALT, External 22 14 - 59 U/L [facility] AST, External 15 15 - 37 U/L [facility] BUN, External 18 7 - 18 mg/dL [facility] Calculated Calcium, External 8.7 8.5 - 10.1 mg/dL [facility] Calcium, External 8.7 8.5 - 10.1 mg/dL [facility] Chloride, External 105 98 - 107 mmol/L [facility] CO2, External 32.9 21.0 - 32.0 mmol/L [facility] Comment:H Creatinine, External 0.6 0.55 - 1.02 mg/dL [facility] Fasting?, External [facility] Potassium, External 3.9 3.5 - 5.1 mmol/L [facility] Sodium, External 142 136 - 145 mmol/L [facility] Total Protein, External 7.3 6.4 - 8.2 g/dL [facility] Bilirubin, Total, External 0.6 0.2 - 1.0 mg/dL [facility] Blood VENOUS BLOOD / Unknown 05/16/2023 6:35 EST Historical Provider CHEMISTRY & BLOOD GAS ORDERABLES [facility] * TSH (05/16/2023 6:35 EST) TSH, External 2.05 0.36 - 3.74 uIU/mL [facility] Blood VENOUS BLOOD / Unknown 05/16/2023 6:35 EST Historical Provider CHEMISTRY & BLOOD GAS ORDERABLES Performing Organization Address City/[facility]/ZIP Co de Phone Number [facility] * LIPID PROFILE (INCLUDES CHOLESTEROL, TRIGLYCERIDES, HDL, LDL) (05/16/2023 6:35 EST) Cholesterol, External 210 <200 mg/dL [facility] Comment:H Triglycerides, External 89 <150 mg/dL [facility] HDL, External 51 40 - 60 mg/dL [facility] LDL, External 142 <100 mg/dL [facility] Comment:H Chol/HDL Ratio, External 51 40 - 60 mg/dL [facility] Fasting?, External [facility] Blood VENOUS BLOOD / Unknown 05/16/2023 6:35 EST Historical Provider CHEMISTRY & BLOOD GAS ORDERABLES Performing Organization Address City/[facility]/ZIP Co de Phone Number [facility] documented in this encounter Visit Diagnoses Not on filedocumented in this encounter Care Teams Machine Adjuster Relationship Specialty Start Date End Date Jasmyne Poe MD [address] [place] [phone] PCP - General 01/07/13 documented as of this encounter
--- OUTSIDE RECORDS SUMMARY | 2023-12-03 02:05 | XMS_ITS | Encounter Summary ---
Author Organization [facility] [place] [address] Care Team Providers Care Correspondence Dictator Name Role Phone Unavailable Primary Care Provider Unavailabl e Reason for Visit * Reason Comments Follow-up Undifferentiated con nective tissue disease Encounter Details Date Type Department Care Team (Latest Contact Info) Description 10/02/2022 4:00 PM EDT TH Visit (TeleHealth) [place] [address] Luke Sandhu MD [facility] [place] [address] Undifferentiated connective tissue disease Social History Tobacco Use Types Packs/Day Years Used Date Smoking Tobacco: Never Smokeless Tobacco: Never Sex and Gender Information Value Date Recorded Sex Assigned at Not on file Gender Identity Not on file Sexual Orientation Not on file documented as of this encounter Patient Instructions * Patient Instructions* Luke Sandhu MD - 10/02/2022 4:00 PM EDT Prednisone taper 20 mg daily for 3 days followed by 10 mg daily for 4 days. Consider use of hydroxychloroquine. documented in this encounter Progress Notes * Luke Sandhu MD - 10/02/2022 4:00 PM EDT This is a telemedicine visit that was performed with the originating site at that patients home address (please see electronic health record for applicable address) and the distant site at my [facility] office. Verbal consent to participate in video visit was obtained by Luke Sandhu MD or the rooming doctor assistant as documented in their note. This visit occurred during the Coronavirus (COVID-19) Public Health Emergency. I discussed with the patient the nature of our telemedicine visits, that: I would evaluate the patient and recommend diagnostics and treatments based on my assessment Our sessions are not being recorded and that personal health information is protected Our team would provide follow up care in person if/when the patient needs it The concept of ???Telemedicine?? has been described to the patient. Patient has been informed of the anticipated benefitsand possible risks. Patient understands the information provided regarding telemedicine, has had the opportunity to ask questions about this information, and all questions have been answered to patien t's satisfaction. Patient consents for the use of telemedicine in his/her medical care and authorizes the transmission of any relevant medical information to providers and their staff involved in patient's medical or mental health care. [facility] Rheumatology Chief rheumatologic issue: Undifferentiated connective tissue disease. HPI: Kirsten was originally referred by her Primary Care Provider Jasmyne Poe from [facility] for evaluation of myalgias, polyarthralgias in the context of a positive antinuclear antibody test. The antinuclear antibody returned with 2 different titers: 1 with a titer of 1: 160 homogeneous and another with a 1: 640 in a centromere immunofluorescent pattern. Additionally elevated CRP wasnoted. Presenting chief complaint: Body/joint pain and stiffness with muscle weakness for approximately 4 years-good time/bad times. Difficulty walking when having flares or episodes. Kirsten is a 55-year-old with medical history notable for osteoarthritis, anxiety, hypothyroidism, paroxysmal atrial fibrillation, left foot wound. Kirsten states that she has had 2 infections inher feet.. The autoimmune work- up was initiated by Sweetie Fajardo due to her concern about significant reaction to small wound that she was taking care of in Podiatry in addition to her intermittent fatigue and myalgia/arthralgia episodes. She had considered screening for conditions including hypothyroidism, diabetes, systemic lupus erythematosus, Lyme disease. A Rheumatology referral was discussed at that time depending on the results of the testing. She also had discussed with her Primary Care Provider symptoms that she had for approximately 4 years. She described pain all over involving legs, feet, back, neck, arms. 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 She has had what she describes as episodes or flares which are manifested by stiffness and achiness. The episodes are relatively infrequent. Her last episode was approximately 6 to 8 months prior to presentation. In addition toa positive antinuclear antibody with titers and patterns as described above and elevated C-reactiveprotein she had a slightly positive double-stranded DNA. Rheumatoid factor was negative. Anti-Ro and anti-La antibodies were negative. She stated that when her legs bother her she experiences stiffness and weakness. She describes the character of the pain as being deep and pain with movement. Feels like bone pain every day in her joints. Worse as the day goes on. Stiff in the morning. The location of the musculoskeletal discomfort is diffuse. When she is flaring the pain is constant. Symptoms are exacerbated by being on her feet and with bending. She will use ibuprofen 600 to 800 mg at a time up to 3 times daily. She has tried Aleve. She has also paired nonsteroidal anti- inflammatory medications with acetaminophen. She has also tried dietary changes without much success. My formulation was as follows: Kirsten is a 55-year-old who presented with a 4-year history of myalgias and arthralgias who was initially evaluated by Podiatry due to foot wounds concerning for an underlying connective tissue disorder especially given positive antinuclear antibody testing. Her antinuclear antibody revealed 2 different patterns. She had 1 titer of 1:160 in a homogeneous pattern and another titer at 1:640 in a centromere staining pattern. Additionally further evaluation revealed a slightly elevated C-reactive protein as well as a borderline positive lzyq-dtkxli-pwrombvn DNA. According to Eular/ACR 2019 classification criteria she did not meet classification criteria for SLE. Initially one needs to have an entry criterion with a positive ALAINA which she does. Further there are 7 clinical domains and 3 immunologic domains which are given numerical scores. A score of more than or equal to 10 with a positive ALAINA is highly specific and sensitive for systemic lupus erythematosus. I would give her a total of 6 points for an nwfm-yiodud-xkrgbxdy DNA despite the fact that this is borderline positive. She does not meet other clinical domains or immunologic domains. I recommended expanding the database to look at other tests for risk of thrombosis including anticardiolipin antibodies or beta-2 glycoprotein antibodies. Lupus anticoagulant testing was negative. Further evaluation at the time of her appointment showed a positive anticentromere antibody at more than 8. Anti- centromere antibodies are found at approximately 30% of patients with systemic sclerosis and have the association with calcinosis and pulmonary hypertension. They are also found in approximately 15% of patients with primary biliary cholangitis. They are found in between 4 and 15% of patients with Sjogren's syndrome and approximately 4 percent of patients with systemic lupus erythematosus. These antibodies are also found in patients with isolated Raynaud's. Further testing showed normal CPK, normal complement levels, normal CRP and ESR and negative lupus anticoagulant. Of note is that in the evaluation of atrial fibrillation she had an echocardiogram transthoracic 02/24/2018 which showed pulmonary systolic pressure mildly to moderately increased in the range of 40- 45 mmHg. LV and RV size and function normal. Wall thickness was increased in a pattern of mild LVH in the left ventricle. Left atrium was moderately dilated. At the time of this appointment she was essentially asymptomatic. We discussed treatment options should she experience one of her stereotypical flares. I would advocate a short course of corticosteroid therapy or a course of nonsteroidal anti-inflammatory medications. I have asked her to give me a call with any worsening of her symptoms or recurrence of 1 of her episodic flares. 07-22-2019 Interval events: No interval events. No flare for 6-8 months. Sometimes will feel stiff in the joints and extends to the muscles. Uses ibuprofen 3-4 times per week in the evening. 02-08-2020 Interval events: No recent flares. She does report some days feeling stiff and describes gelling phenomenon. She has atrial fibrillation events every Friday and they last between 4 and 16 hours. She stoppedibuprofen and also stopped the Zoloft thinking they might be contributing. She will be seeing [facility] cardiology and will be followed by Dr. Posey. She is taking aspirin 81 mg daily. Recent echocardiogram was done and showed peak pulmonary artery pressures of 36. She has lost approximately 30 pounds using a Nutrisystem diet. She did not get high-resolution CT scan which I had ordered for her. She did have pulmonary function test 03/19/2018 at [facility]. FVC 90%. FEV1 89%. FEV1/FVC 96%. FEF 25-7585%. FEF max 111% 06/07/2020 interval events: Doing well overall. Still losing weight yet this is intentional. She does report that she has gelling. She has experienced this over the last 6 weeks in her shoulders, cervical spine, upper back. No new medications. No interval health events. She had stopped Cardizem. She is followed by Dr. Posey at [facility] cardiology. She has diltiazem 30 mg to take as needed Had high-resolution CT scan of the chest at [facility] in late February. Results not yet available to me. Recent laboratory tests at [facility] including hemoglobin A1c 5.6, vitamin D, comprehensive metabolic panel, and ferritin 78. 11/14/2020 interval events: Had cardiac ablation for paroxysmal atrial fibrillation October 04, 2019 (PVE/PVI). She will be on Eliquis until January 03. 12 days after the procedure she presented to the emergency room at [facility] 6-28 for a febrile episode up to 101.6 associated with malaise and fatigue starting 2 days prior to presentation to the emergency room. She also had some mild abdominal discomfort on presentation to the emergency room she was afebrile. She had taken some acetaminophen prior to arrival. She was hemodynamically stable and oxygenating well on room air. She had normal WBC, and EKG showing sinus rhythm without atrial fibrillationand a chest x-ray which was read as normal. She had an elevated CRP to 20 and a negative COVID-19 test. Blood cultures were negative. Additionally she had normal glucose magnesium electrolytes creatinine BUN hemoglobin platelet count differential she had a chest angiogram CT. There is no evidence of a transesophageal fistula. There was mild left atrial enlargement consistent with atrial fibrillation and dilation of the splenic vein up to 14 mm.. No other localizing symptoms. There was concern about the possibility of an atrial esophageal fistula, a rare but life-threatening potential complication from atrial fibrillation ablation. Recommendations were for her to get a CT scan of the chest with both IV and oral contrast to look for the atrial esophageal fistula. Blood cultures were drawn. Due to splenic vein dilatation she will be scheduled for hepatic duplex study. Last transthoracic echocardiogram was with Dr. Posey September 2019. 03/16/2021 interval events: Kirsten has been vaccinated with the [employer] vaccine product. She has not received a booster. She does not intend to get a booster at this time. She has not used short course of corticosteroid therapy as we had previously discussed. She has had in the intervening months 3 runs of SVT with rates between 110 and 135. The first 2 episodes lasted between 4 and 5 hours. She tried Cardizem as needed without success. The third episode lasted approximately 6 hours. She initially used short acting Cardizem and then used extended release Cardizem without any significant response. She is off of Eliquis at this time. She indicates that she is now free of SVT episodes for approximately 2 months. She has an appointment with Dr. Wolf in the coming weeks. She has experienced minor flares of what appears to be an inflammatory arthritis manifested by aches and pains and stiffness and gelling in small and medium and large joints. Most recent laboratory tests showed low CRP and ESR. No fevers. No rashes. No mouth sores. No classic Raynaud's. She does have some sensation of cold with possible reperfusion sensation yet no color changes. 08-23-2021 Interval events: Day 16 post op Left TKA with Dr. Leon. No changes in health or new medications. Free of AF sxs. Fewer articular symptoms. Labs 08-06-2021 ESR 3 CRP 0.15 04-25-2022 Interval events: Having persistent pain in the left knee post TKA. Waiting july for reevaluation. Stairs are OK up and down. Rash with voltaren gel. Gaining weight. Doing nutrasystem. Using NSAIDs without much help. Also using acetaminophen Had first colo. 10 year followup No shingles vaccine Cholesterol increase with menopause. Some small joint swelling of the hands Had an episode of Raynaud's recently in the right index finger. Isolated. Not recurrent 10-02-2022 Interval events: Ready to try something. Stiffness in the AM and gelling. Sxs are worse in the evening though stiffness is worse in the AM. Increasing fatigue. Menopausal. Myalgias and arhtralgias. Stiffness. Seeing chiropractor. Review of Systems: Constitutional: No recent fevers. She is vaccinated against COVID-19 with [employer]. Thinks she had Covid early on. HEENT: No eye pain or previously diagnosed inflammatory eye conditions. She has eye dryness. She uses artificial tears. No vision loss. No hearing loss. No tinnitus. No mouth sores. No dry mouth. No facial rash. Cardiovascular: No chest pain Pulmonary: No dyspnea cough or wheezing Gastrointestinal: No significant upper or lower GI symptoms. Dermatologic: No rash Vascular: Question vasomotor changes in the distal upper or lower extremities in response to cold weather? No history of blood clots or easy bruising. Musculoskeletal: Occasional myalgias and arthralgias. No small joint swelling. No dactylitis. No muscle weakness. Intermittent morning stiffness that can last up to approximately 1 hour. She does report some aching in the knees and in the fingers. Occasional swelling in the right hand long finger MCP Current Outpatient Medications Medication Sig Dispense Refill sertraline (Zoloft) 25 mg Tablet vit C/Zn gluc/herbal no.325 (ELDERBERRY ZINC VIT C MM) by Transmucosal route. melatonin 3 mg Tablet Take by mouth. VITAMIN B COMPLEX ORAL Take 1 each by mouth Daily. dilTIAZem XR (Dilacor XR) 120 mg Capsule,Degradable Cnt Release Take 120 mg by mouth daily. dilTIAZem (Cardizem) 30 mg Tablet Take 60 mg by mouth Once daily as needed. cholecalciferol, Vitamin D3, 50 mcg (2,000 unit) Capsule Take 2,000 Units by mouth. aspirin 81 mg Tablet, Chewable Take 81 mg by mouth every 24 hours. DEUFIQONEXZN-[id number] ACID ORAL Take by mouth. L-Methylfolate 15 mg Tablet Take 15 mg by mouth Daily. levothyroxine (Synthroid) 50 mcg Tablet Magnesium Oxide 250 mg magnesium Tablet Take 500 mg by mouth. No current facility-administered medications for this visit. Allergies Allergen Reactions Penicillins Anaphylaxis Tolerates cephalexin Sulfa (Sulfonamide Antibiotics) Rash Physical Exam: There were no vitals taken for this visit. Televideo visit General appearance and movement: Alert. Nontoxic. No distress. Healthy appearing. Gets out of chaireasily without stiffness or pain. Labs: 03/02/2021: ESR 2. CRP less than 0.05 11/13/2020: CBC with WBC 6.35. Hemoglobin 13.0. Platelet count 220. Normal differential. Urinalysis negative. No protein or cellularity. 12/11/2018: CBC with WBC 6.5 hemoglobin 13.9 platelet count 287 normal differential. TSH 2.19. ALAINA 1: 160 homogeneous and 1: 640 centromere. Lyme antibody testing negative. C-reactive protein 1.18 which corresponds to 11.8 in our lab. Hemoglobin A1c 6.3. 01/05/2019: Urinalysis: Negative glucose. Negative bilirubin. Negative ketones. Specific gravity 1.015. No blood. pH 7.0. No protein. Negative nitrites. Negative leukocyte esterase. Rheumatoid factor negative. CCP antibody negative. Anti-SSA antibody negative. Anti-Sexton antibody negative. Anti-LACE ROLLER OPERATOR antibody negative. Zeiy-eqznzb-uxgvpghc DNA antibody slightly positive at 38.3. Diagnostic imaging: October 16, 2019: Transthoracic echocardiogram. 1. Left ventricle cavity size normal. Wall thickness was at upper limits of normal. Systolic function was normal. The estimated ejection fraction was 60- 65%. Wall motion was normal; there were no regional wall motion abnormalities. 2. Aortic valve: Transvalvular velocity was minimally increased. There was very mild stenosis. Valve area 1.7 cm??. Valve area mean 1.9 cm??. 3. Ascending aorta: The ascending aorta was at the upper normal limits. 4. Mitral valve: There was mild regurgitation. 5. Right ventricle: Cavity size was normal. Wall thickness was normal. Systolic function was normal. 6. Pulmonary arteries: Pulmonary systolic pressure was at upper limits of normal. PA peak pressure:36 mmHg Assessment: 1. Undifferentiated connective tissue disease: I have thought that Kirsten has had low-level smoldering inflammatory symptoms. We again discussed the possibility of using hydroxychloroquine for an entity consistent with undifferentiated connective tissue disease. ALAINA profiles as noted. Specific an tibody anticentromere antibody positive. Borderline positive igec-sezrzm-epwgyiaz DNA. Transthoracic echocardiogram with pulmonary pressures in the moderately elevated range 40 to 45 mmHg. Repeat testing showed peak pulmonary artery pressure 36 mmHg. She has had a high-resolution CT scan test at [facility]. I still have a low threshold to initiate therapy with hydroxychloroquine. Again discussed and deferred. At this point however she is willing to try a diagnostic trial of prednisone. I will be calling in a prescription for 20 mg daily for 3 days followed by 10 mg daily for 4 days. She will contact me with response to therapy. At that point most likely will consider starting hydroxychloroquine 200 mg Previously discussed potential risks and benefits of hydroxychloroquine. We will continue to monitor at this time. I have asked her to contact me with any new signs or symptoms including alopecia, malar rash, mouth sores, increasing sicca symptoms, small joint swelling and increased stiffness, respirophasic pain, fevers. Plan: Prednisone taper 20 mg daily for 3 days followed by 10 mg daily for 4 days. Consider use of hydroxychloroquine. 36 minutes total spent on this visit including precharting, review of laboratory, imaging data, andnotes from other providers, awwy-eq-hlxn interaction, and documentation. documented in this encounter Plan of Treatment Upcoming Encounters Date Type Department Care Team (Late st Contact Info) Description 12/18/2023 3:00 PM EDT Appointment XRay at [address] [place] [address] 12/18/2023 4:00 PM EDT Office Visit Orthopaedics at [facility] [place] [address] Laurent Castanon MD [facility] [place] [address] documented as of this encounter Visit Diagnoses Diagnosis Undifferentiated connective tissue disease Unspecified diffuse connective tissue disease documented in this encounter
--- OUTSIDE RECORDS SUMMARY | 2023-12-03 02:05 | XMS_ITS | Encounter Summary ---
Author Organization [facility] [place] [address] Care Team Providers Care Core Analyst Name Role Phone None Primary Care Provider Unavailabl e Encounter Details Date Type Department Care Team (Latest Contact Info) Description 04/25/2022 3:30 PM EST Office Visit Rheumatology at [facility] [place] [phone] Luke Sandhu MD [facility] [address] Undifferentiated connective tissue disease; Mild aortic stenosis; PAF (paroxysmal atrial fibrillation) Social History Tobacco Use Types Packs/Day Years Used Date Smoking Tobacco: Never Smokeless Tobacco: Never Sex and Gender Information Value Date Recorded Sex Assigned at Not on file Gender Identity Not on file Sexual Orientation Not on file documented as of this encounter Last Filed Vital Signs Vital Sign Reading [...] Mass Index 28.38 04/25/2022 3:24 PM EST documented in this encounter Patient Instructions * Patient Instructions* Luke Sandhu MD - 04/25/2022 3:30 PM EST Call with any flares. Think about HCQ Echo and CRP and ESR at [facility] documented in this encounter Progress Notes * Luke Sandhu MD - 04/25/2022 3:30 PM EST [facility] Chief rheumatologic issue: Undifferentiated connective tissue disease. HPI: Kirsten was originally referred by her Primary Care Provider Jasmyne Poe from [facility] for evaluation of myalgias, polyarthralgias in the [...] protein as well as a borderline positive ayin-wuaqlb-gdocfhne DNA. According to Eular/ACR 2019 classification criteria [...] a total of 6 points for an aeek-omclca-evvaxmca DNA despite the fact that this is [...] might be contributing. She will be seeing [facility] cardiology and will be followed by Dr. Posey. She is taking aspirin 81 mg daily. Recent echocardiogram was done and showed peak pulmonary artery pressures of 36. She has lost approximately 30 pounds using a Nutrisystem diet. She did not get high-resolution CT scan which I had ordered for her. She did have pulmonary function test 03/19/2018 at [facility]. FVC 90%. FEV1 89%. FEV1/FVC 96%. [...] She is followed by Dr. Posey at [facility] cardiology. She has diltiazem 30 mg to take as needed Had high-resolution CT scan of the chest at [facility] in late February. Results not yet available to me. Recent laboratory tests at [facility] including hemoglobin A1c 5.6, vitamin D, comprehensive metabolic panel, and ferritin 78. 11/14/2020 interval events: Had cardiac ablation for paroxysmal atrial fibrillation October 04, 2019 (PVE/PVI). She will be on Eliquis until January 03. 12 days after the procedure she presented to the emergency room at [facility] 6-28 for a febrile episode up to [...] the right index finger. Isolated. Not recurrent Review of Systems: Constitutional: Recent fever and upper respiratory sxs and lost taste and smell for a week. Everything returned. She is vaccinated against COVID-19 with Hublished. Thinks she had Covid early on. HEENT: No eye pain or previously diagnosed inflammatory eye conditions. She has eye dryness. She uses artificial tears. No vision loss. No hearing loss. No tinnitus. No mouth sores. No dry mouth. No facial rash. Cardiovascular: As above Pulmonary: No dyspnea cough or wheezing Gastrointestinal: [...] in the knees and in the fingers. Current Outpatient Medications Medication Sig Dispense Refill ??? vit C/Zn gluc/herbal no.325 (ELDERBERRY ZINC VIT C MM) by Transmucosal route. ??? melatonin 3 mg Tablet Take by mouth. ??? VITAMIN B COMPLEX ORAL Take 1 each by mouth Daily. ??? dilTIAZem XR (Dilacor XR) 120 mg Capsule,Degradable Cnt Release Take 120 mg by mouth daily. ??? dilTIAZem (Cardizem) 30 mg Tablet Take 60 mg by mouth Once daily as needed. ??? cholecalciferol, Vitamin D3, 50 mcg (2,000 unit) Capsule Take 2,000 Units by mouth. ??? aspirin 81 mg Tablet, Chewable Take 81 mg by mouth every 24 hours. ??? FOTCLEZQFEBT-ZRHN-HTXFJ ACID ORAL Take by mouth. ??? L-Methylfolate 15 mg Tablet Take 15 mg by mouth Daily. ??? levothyroxine (Synthroid) 50 mcg Tablet ??? Magnesium Oxide 250 mg magnesium Tablet Take 500 mg by mouth. No current facility-administered medications for this visit. Allergies Allergen Reactions ??? Penicillins Anaphylaxis Tolerates cephalexin ??? Sulfa (Sulfonamide Antibiotics) Rash Physical Exam: BP 132/72 Pulse 67 Temp 36.7 ??C (98 ??F) (Temporal) Ht 175.3 cm (5' 9) Wt 87.2 kg (192 lb3.2 oz) SpO2 100% BMI 28.38 kg/m?? Telephone visit General appearance and movement: Alert. Nontoxic. No distress. Healthy appearing. Gets out of chaireasily without stiffness or pain. ?? HEENT: Anicteric sclera. Clear conjunctiva. No facial rash. ?? Heart: Regular rate and rhythm. ?? Lungs: Clear to auscultation. No rales rubs or wheezes. ?? Skin: No rash. No sclerodactyly. No telangiectasias. No subcutaneous nodules. ?? Vascular: 2+ pulses in radial arteries. ?? Neurologic: Normal mental status. Speech fluent. Comprehension and language intact. Alert and oriented. Normal muscle bulk. No abnormal movements tremors or fasciculations. Normal gait. Cranial nerves II through XII intact ?? Musculoskeletal: Erect posture. Normal gait. ?? Hands: No nail pitting or onycholysis. No synovial swelling or tenderness in MCPs or PIPs. Neurovascularly intact. No thenar atrophy. No dactylitis. No triggering of flexor tendons. No tendon friction rubs. ?? Wrists: No synovial swelling or tenderness. Normal flexion and extension. ?? Elbows: No effusions or nodules. Full flexion extension pronation supination. ?? Shoulders: Full range of motion flexion extension internal and external rotation. Labs: 03/02/2021: ESR 2. CRP less than [...] negative. Anti-SSA antibody negative. Anti-Sexton antibody negative. Anti-BILLING MANAGER antibody negative. Rxct-hspjzr-pdlsseps DNA antibody slightly positive at 38.3. Diagnostic [...] an tibody anticentromere antibody positive. Borderline positive hdbh-cevmjr-mcwwvyqg DNA. Transthoracic echocardiogram with pulmonary pressures in the moderately elevated range 40 to 45 mmHg. Repeat testing showed peak pulmonary artery pressure 36 mmHg. She has had a high-resolution CT scan test at [facility]. I still have a low threshold to initiate therapy with hydroxychloroquine. Again discussed and deferred. Previously discussed potential risks and benefits of hydroxychloroquine. We will continue to monitor at this time. I have asked her to contact me with any new signs or symptoms including alopecia, malar rash, mouth sores, increasing sicca symptoms, small joint swelling and increased stiffness, respirophasic pain, fevers. We will have a 6 -month THfollow-up appointment Plan: Call with any flares. Think about HCQ Echo and CRP and ESR at [facility]. 38 minutes total spent on this visit including precharting, review of laboratory, imaging data, andnotes from other providers, bloj-bz-eedn interaction, and documentation. documented in this encounter Plan of Treatment Upcoming Encounters Date Type Department Care Team (Late st Contact Info) Description 12/18/2023 3:00 PM EDT Appointment XRay at [address] [place] [phone] 12/18/2023 4:00 PM EDT Office [place] [address] Laurent Castanon MD [facility] [place] [address] documented as of this encounter Visit Diagnoses Diagnosis Undifferentiated connective tissue disease Unspecified diffuse connective tissue disease Mild aortic stenosis Aortic valve disorders PAF (paroxysmal atrial fibrillation) Atrial fibrillation documented in this encounter Care Teams Core Analyst Relationship Specialty Start Date End Date None None PCP - General 04/25/22 04/25/22 documented as of this encounter
--- OUTSIDE RECORDS SUMMARY | 2023-12-03 02:05 | XMS_ITS | Encounter Summary ---
Author Organization [facility] Address [address] [place] [address] Care Team Providers Care Dynamo Tender Name Role Phone Jasmyne Poe MD Primary Care Provider + Reason for Visit * Reason Onset Date Comments Appointment Related 05/06/2023 Encounter Details Date Type Department Care Team (Late st Contact Info) Description 05/06/2023 Telephone [facility] - [address] [address] Jasmyne Poe MD [address] [place] [phone] Appointment Related Social History Tobacco Use Types Packs/Day Years Used Date Smoking Tobacco: Never Smokeless Tobacco: Never Comments:a little in high sc hool Alcohol Use Standard Drinks/Week Comments Not Currently 0 (1 standard drink = 0.6 oz pur e alcohol) AUDIT-C Answer Date Recorded Q1: How often [...] care, and heating? Not hard at all 10/24/2021 PHQ-2 Answer Date Recorded PHQ-2 SUBTOTAL 6 10/23/2021 Hunger Vital Sign Answer Date Recorded Within the past 12 months, y ou worried that your food would run out before you got the money to buy more. Never true 10/25/19 22 Within the past 12 months, t he food you bought just didn't last and you didn't have money to get more. Never true 10/24/2021 PRAPARE - Transportation Answer Date Re corded In the past 12 months, has l ack of transportation kept you from medical appointments or from getting medications? No 09/2021 In the past 12 months, has l ack of transportation kept you from meetings, work, or from getting things needed for daily living? No 10/24/2021 Housing Stability Vital Sign Answer Juanito e Recorded In the last 12 months, was t here a time when you were not able to pay the mortgage or rent on time? No 10/24/2021 In the last 12 months, how many places have you lived? 1 10/24/2021 In the last 12 months, was t here a time when you did not have a steady place to sleep or slept in a [facility] (including now)? No 10/24/2021 Interpersonal Safety Answer Date Record ed How often does anyone, inclyany harvey family, hit, punch or physically hurt you? Never 10/24/2021 How often does anyone, toi harvey family, insult, scream, curse or threaten to hurt you? Never 10/24/2021 Sex and Gender Information Value Date Recorded [...] No 10/03/2020 documented as of this encounter Miscellaneous Notes * Telephone Encounter - Angelica Pat - 05/06/2023 1655 EST Faxed lab orders for hemoglobin A1C, CMP, TSH, Lipid Profile to [facility], fax # [phone], on 05/06/2023 at 17:00. JF * Telephone Encounter - Angelica Pat - 05/06/2023 1534 EST Confirmed upcoming appointment with patient on 05/19/2023 at 2:[address] Poe. Asked patient to have fasting labs done prior to the appointment. Please fast for at least 8 hours. You can continue to take your medications, drink plenty of water, and you may have black coffee with no cream orsugar. The lab orders will be faxed to [facility], fax # [phone]. documented in this encounter Plan of Treatment Upcoming Encounters Date Type Department Care Team (Late st Contact Info) Description 05/20/2024 14:45 EST Office Visit [facility] - [address] [address] Jasmyne Poe MD [address] [place] [phone] documented as of this encounter Visit Diagnoses Not on filedocumented in this encounter Care Teams Dynamo Tender Relationship Specialty Start Date End Date Jasmyne Poe MD [address] [place] [phone] PCP - General 01/07/13 documented as of this encounter
--- OUTSIDE RECORDS SUMMARY | 2023-12-03 02:05 | XMS_ITS | Referral Summary ---
Author Organization [facility] Address [address] [place] [address] Care Team Providers Care Weed Eradicator Name Role Phone Jasmyne Poe MD Primary Care Provider + Allergies Active Allergy Reactions Criticality Noted Date Comments Penicillins Anaphylaxis High Tolerates cephalexin Sulfa (Sulfonamide Antibiotics) Rash Medium Medications Medication Sig Dispensed Refills Start Date End Date Status Magnesium 250 mg tablet Take 1 Each by mouth daily. Patient states she takes 500 mg daily Active cholecalciferol, Vitamin D3, 2,000 unit tablet Take by mouth. Active vit C/Zn gluc/herbal no.325 (ELDERBERRY ZINC VIT C MM) by mucous membrane route. Active Multivitamins with Minerals tablet tablet Take 1 Tablet by mouth daily. Active dilTIAZem (CARDIZEM) 30 mg tablet Take 1 Tablet by mouth 4 times daily as needed (for Afib). 30 Tablet 1 11/15/2022 Active sertraline (ZOLOFT) 50 mg tablet Take 1 Tablet by mouth daily. 90 Tablet 1 01/30/2023 Active Additional Information Patient taking differently: 25 mgoral DAILY, Reported on 05/19/2023 levothyroxine (SYNTHROID) 50 mcg tabletIndications:Acq uired hypothyroidism Take 1 Tablet by mouth daily. 90 Tablet 2 08/12/2023 Active Active Problems Patient Care Coordination No te Formatting of this note migh t be different from the original. Patient has given permission for [facility] to verbally discuss the following information with Agustín Almaguer who has the following relationship to the patient: Spouse/Partner: Scheduling/Appt/Billing/Payment Information (does not include clinical information unless specifically indicated with separate option) Medical Information including symptoms, diagnosis, medications, test results and treatment plan (does not include Mental Health unless specifically indicated with separate option) Permission remains in effect until the patient elects to revoke it. Problem Noted Date Diagnosed Date Mixed hyperlipidemia 03/20/2022 Overview: Borderline, no medication Paroxysmal atrial fibrillation ([facility]) 021 Overview: Cardiac ablation done 09/2020 Dr. Wolf RAJ (obstructive sleep apnea) 06/21/2020 Overview: Mild, by Sleep Study done at [facility] in [facility] on 05/27/20 Dental device for bruxism Mild aortic stenosis 03/20/2020 Undifferentiated connective tissue disease ([facility]) 07/22/2019 Overview: No treatment but low threshold to start hydroxychloroquine Sees Dr. Luke Ludwig at [facility] Borderline diabetes 12/30/2018 Anxiety 05/21/2017 Overview: Rare panic attacks, last in 02/2017 On sertraline Stopped sertraline in 2019 Restarted Acquired hypothyroidism 05/21/2017 Allergy to penicillin 01/07/2013 Osteoarthritis Overview: Both knees S/p left TKR Resolved Problems Problem Noted Date Diagnosed Date Resolved Date Abnormal uterine bleeding 06/07/2019 Overview: Seeing [employer] [facility] in [facility]: US and endometrial biopsy normal 10/2019: resolved Obesity, Class I, BMI 30-34.9 05/25/2018 06/04/2020 Hypertensive disorder 2012 Palpitations 01/07/2013 Obesity 05/21/2017 Hypertension 07/17/2020 Overview: with episdes of anxiety in the past Immunizations Name Administration Dates Next Due Historical Influenza Vaccine , Unspecified 03/05/2023,02/16/2018 Influenza Vaccine Quad (AFLU KATHARINA) PF 0.5 ml IM (3 yrs+) 02/16/2020,02/09/2019,02/25/2018,2016,02/15/2015,01/21/2014 Influenza Vaccine Recomb Ravi d RIV4 (FLUBLOK) PRSRV/ABX Free 0.5 ml IM (18 yrs+) 02/15/2019 MMR Vaccine SQ 01/03/2009 PPD Skin Test Placement 01/03/2009,12/20/2008 Tdap Vaccine =>7YO IM 05/25/2018,12/20/2008 Social History Tobacco Use Types Packs/Day Years Used Date Smoking Tobacco: Never Smokeless Tobacco: Never Comments:a little in high sc hool Alcohol Use Standard Drinks/Week Comments Not Currently 0 (1 standard drink = 0.6 oz pur e alcohol) [facility] Utilities Answer Date Recorded In the past 12 months has [employer], gas, oil, or water [email or web address] threatened to shut off services in your [...] place to sleep or slept in a [place] (including now)? No 05/19/2023 Interpersonal Safety Answer [...] 15:13 EST Sexual Orientation Not on file Last Filed Vital Signs Vital Sign Reading Time Taken Comments Blood Pressure 136/67 05/19/2023 1415 EST Pulse 55 05/19/2023 1415 EST Temperature 36.7 ??C (98 ??F) 05/19/2023 1415 EST Respiratory Rate 20 05/19/2023 1415 EST Oxygen Saturation 100% 04/02/2021 0855 EST Inhaled Oxygen Concentration - - Weight 89.1 kg (196 lb 6.4 oz) 05/19/[address] Height 174 cm (5' 8.5) 05/19/2023 1415 EST Body Mass Index 29.42 05/19/2023 1415 EST Functional Status Functional Status Response Date of [...] (5 years old or older) No 10/03/2020 Plan of Treatment Upcoming Encounters Date Type Department Care Team (Late st Contact Info) Description 05/20/2024 14:45 EST Office Visit [facility] - [place] [address], [place] [phone] Jasmyne Poe MD [address] [place] [phone] Procedures Procedure Name Priority Date/Time Associated Diagnosis Comments PAP TEST Today 06/19/2023 15:38 EST Encounter for other general examination LIPID PROFILE (INCLUDES CHOLESTEROL, TRIGLYCERIDES, HDL, LDL) Routine 05/16/2023 6:35 EST HEPATITIS C AB W REFLEX TO HCV RNA BY PCR Routine 10/23/2021 7:50 EDT HIV 1/2 ANTIGEN AND ANTIBODY, 4TH GENERATION Routine 05/21/2017 11:24 EST Screening for HIV (human immunodeficiency virus) from Last 3 Months or Most Recently Relevant to Health Maintenance Results * PAP TEST (06/19/2023 15:38 EST) Specimens A. Cervix and/or Endocervix , ThinPrep Imaging System with Manual Evaluation 06/26/2023 19:05 [facility] Specimen Adequacy Satisfactory for Evaluation - transformation zone component present 06/26/2023 19:05 [facility] General Categorization Negative for intraepithelial lesion or malignancy 06/26/2023 19:05 [facility] Attestation . 06/26/2023 19:05 [facility] at 1905 Clinical History See below 06/26/19 19:05 EST [facility] HPV The result for the Human Papillomavirus (HPV) Detection-High Risk Types is Negative. No E6 or E7 mRNA is detected from HPV types 16,18,31,33,35,39 ,45,51,52,56,58,5 9,66, and 68 by helper teacher mediated amplification.Molly ting was performed on specimen [id number] and was resulted on 06/26/2023 1905 EST by IVETH, LAB INSTRUMENT RESULTS IN 06/26/2023 19:05 EST [facility] Performing Lab [facility] 06/26/2023 19:05 EST [facility] Scanned Images 06/26/2023 19:05 EST [facility] Pap Test CERVIX UTERI STRUCTURE / Unknown 06/19/2023 15:38 EST 06/20/2023 11:54 EST Jasmyne Camarena MD PATHOLOGY ORDERABLES [facility] [address] [place] [id number] * LIPID PROFILE (INCLUDES CHOLESTEROL, TRIGLYCERIDES, HDL, LDL) (05/16/2023 6:35 EST) Pathologist [facility] Cholesterol, External 210 <200 mg/dL [facility] Comment:H Triglycerides, External 89 <150 mg/dL [facility] HDL, External 51 40 - 60 mg/dL [facility] LDL, External 142 <100 mg/dL [facility] Comment:H Chol/HDL Ratio, External 51 40 - 60 mg/dL [facility] Fasting?, External [facility] Blood VENOUS BLOOD / Unknown 05/16/2023 6:35 EST Shanique Provider CHEMISTRY & BLOOD GAS ORDERABLES [facility] * HEPATITIS C AB W REFLEX TO HCV RNA BY PCR (10/23/2021 7:50 EDT) Pathologist [facility] Hep C Antibody Negative Negative 10/24/2021 11:39 EDT [facility] Blood VENOUS BLOOD / Unknown 10/23/2021 7:50 EDT 10/23/2021 16:38 EDT Provider Outr Resulting Lab CHEMISTRY & BLOOD GAS ORDERABLES Performing Organization Address City/[facility]/ZIP Co de Phone Number [facility] [address] [place] [address] * HIV 1/2 ANTIGEN AND ANTIBODY, 4TH GENERATION (05/21/2017 11:24 EST) HIV 1/2 Antibody Negative Negative 05/22/19 12:35 EST [facility] Comment: Fourth generation assay performed on the [email or web address]. If acute HIV-1 infection is suspected in a high risk patient, submit plasma specimen for HIV-1 RNA quantification test. Blood specimen (specimen) BLOOD SPECIMEN / Unknown 05/21/2017 11:24 EST 05/21/2017 13:53 EST Jasmyne Poe MD IMMUNOLOGY AND S EROLOGY ORDERABLES Performing Organization Address City/[facility]/ZIP Co de Phone Number [facility] [address] [place] [address] from Last 3 Months or Most Recently Relevant to Health Maintenance Advance Directives For more information, please contact: [phone] * Full Code (Latest Code Status on File) Date Activated Date Inactivated Comments 10/03/2020 7:02 10/04/2020 15:04 Question Answer Comments Reason for decision includes: Full code consistent with overall plan of care Who participated in the discussion? Not Discusse d Care Teams Weed Eradicator Relationship Specialty Start Date End Date Jasmyne Poe MD [address] [place] [phone] PCP - General 01/07/13
--- OUTSIDE RECORDS SUMMARY | 2023-12-03 02:05 | XMS_ITS | Encounter Summary ---
Author Organization [facility] [place] [address] Care Team Providers Care Curtain Framer Name Role Phone Unavailable Primary Care Provider Unavailabl e Encounter Details Date Type Department Care Team (Late st Contact Info) Description 02/28/2021 Orders [place] [address] Luke Sandhu MD [facility] [address] Undifferentiated connective tissue disease Social History Tobacco Use Types Packs/Day Years Used Date Smoking Tobacco: Never Smokeless Tobacco: Never Sex and Gender Information Value Date Recorded Sex Assigned at Not on file Gender Identity Not on file Sexual Orientation Not on file documented as of this encounter Plan of Treatment Upcoming Encounters Date Type Department Care Team (Late st Contact Info) Description 12/18/2023 3:00 PM EDT Appointment XRay at [address] [place] [phone] 12/18/2023 4:00 PM EDT Office [place] [address] Laurent Castanon MD [facility] [place] [address] documented as of this encounter Visit Diagnoses Diagnosis Undifferentiated connective tissue disease Unspecified diffuse connective tissue disease documented in this encounter
--- OUTSIDE RECORDS SUMMARY | 2023-12-03 02:05 | XMS_ITS | Encounter Summary ---
Author Organization [facility] [place] [address] Care Team Providers Care Clinical Data Management Manager Name Role Phone Unavailable Primary Care Provider Unavailabl e Encounter Details Date Type Department Care Team (Late st Contact Info) Description 06/29/2021 Telephone [place] [phone] Deborah Calle Social History Tobacco Use Types Packs/Day Years Used Date Smoking Tobacco: Never Smokeless Tobacco: Never Sex and Gender Information Value Date Recorded Sex Assigned at Not on file Gender Identity Not on file Sexual Orientation Not on file documented as of this encounter Miscellaneous Notes * Telephone Encounter - Deborah Calle - 06/29/2021 1:06 PM EST VM left with pt to confirm labs need to be done before appt and to let us know where to send if needed documented in this encounter Plan of Treatment Upcoming Encounters Date Type Department Care Team (Late st Contact Info) Description 12/18/2023 3:00 PM EDT Appointment XRay at [address] [place] [phone] 12/18/2023 4:00 PM EDT Office [place] [phone] Laurent Castanon MD [facility] [place] [address] documented as of this encounter Visit Diagnoses Not on filedocumented in this encounter
--- OUTSIDE RECORDS SUMMARY | 2023-12-03 02:05 | XMS_ITS | Clinical Summary ---
Author Organization [facility] Address [address] [place] [address] Care Team Providers Care Kitchenwhere Maker Name Role Phone Jasmyne Poe MD Primary [...] original. Patient has given permission for [facility] to verbally discuss the following information [...] Overview: Borderline, no medication Paroxysmal atrial fibrillation ([facility]) 021 Overview: Cardiac ablation done 09/2020 Dr. Wolf RAJ (obstructive sleep apnea) 06/21/2020 Overview: Mild, by Sleep Study done at [facility] in [facility] on 05/27/20 Dental device for bruxism Mild aortic stenosis 03/20/2020 Undifferentiated connective tissue disease ([facility]) 07/22/2019 Overview: No treatment but low threshold to start hydroxychloroquine Sees Dr. Luke Ludwig at [facility] Borderline diabetes 12/30/2018 Anxiety 05/21/2017 Overview: Rare panic attacks, last in 02/2017 On sertraline Stopped sertraline in 2019 Restarted Acquired hypothyroidism 05/21/2017 Allergy to penicillin 01/07/2013 Osteoarthritis Overview: Both knees S/p left TKR Resolved Problems Problem Noted Date Diagnosed Date Resolved Date Abnormal uterine bleeding 06/07/2019 Overview: Seeing [employer] in [facility]: US and endometrial biopsy normal 10/2019: resolved [...] Placement 01/03/2009,12/20/2008 Tdap Vaccine =>7YO IM 05/25/2018,12/20/2008 Surgical History Surgery Date Site/Laterality Comments SECTION 04/21/1985 - 04/20/1986 KNEE ARTHROSCOPY 04/21/2002 - 04/20/2003 Right right knee PRE-MALIGNANT / BENIGN SKIN LESION EXCISION right upper back TOTAL KNEE ARTHROPLASTY 08/07/2021 Left done at [facility] ABLATION OF DYSRHYTHMIC FOCUS 09/19/2020 - 10/18/2020 Medical History Medical History Date Comments Anxiety 2002 on zoloft in the past Rotator cuff injury 01/19/2014 Right should er History of epidural anesthesia a nd spinal , w/o issue Sleep apnea tested , no severo tment recommended History of gestational diabetes resolved w/ diet and exercise Hypothyroidism tx w/ meds A-fib ([facility]) paroxysmal , cur rently on diltiazem Abnormal uterine bleeding 06/07/2019 Seeing [employer] in [facility]: US and endometrial biopsy normal 10/2019: resolved Family History Medical History Relation Comments No Known Brother Alcohol Abuse Father cause of u nknown , @ 58yo Heart Disease Maternal Grandfather Lymphoma Maternal Grandfather Hodgkin's l ymphoma Diabetes Maternal Grandmother Hypertension Maternal Grandmother Diabetes Maternal Uncle Lung Cancer Mother of lung can cer of 63 Heart Surgery Other 1 grandmother Heart Attack Other 2 grandfather- [place] Leukemia Son AML Relation Status Comments Brother Alive Father (Age 58) uncertain caus e of Maternal Grandfather Maternal Grandmother Maternal Uncle Mother (Age 63) Lung cancer Other 1 Other 2 Son Social History Tobacco Use Types Packs/Day Years Used Date Smoking Tobacco: Never Smokeless Tobacco: Never Comments:a little in high sc hool Alcohol Use Standard Drinks/Week Comments Not Currently 0 (1 standard drink = 0.6 oz pur e alcohol) [facility] Utilities Answer Date Recorded In the past 12 months has th e electric, gas, oil, or water company threatened [...] place to sleep or slept in a nursing home (including now)? No 05/19/2023 Interpersonal Safety Answer [...] 15:13 EST Sexual Orientation Not on file Obstetrics History Last Filed Vital Signs Vital Sign Reading [...] Body Mass Index 29.42 05/19/2023 1415 EST Plan of Treatment Upcoming Encounters Date Type Department Care Team (Late st Contact Info) Description 05/20/2024 14:45 EST Office Visit [facility] - [address] [phone] Jasmyne Poe MD [address] [place] [address] Health Maintenance Due Date Last Done Comments Advance Directive 1984 Hepatitis B Vaccine (1 of 3 - 19+ 3-dose series) 1985 Cologuard (Colon Cancer Screening) 2011 FIT Test (Colon Cancer Screening) 2011 Sigmoidoscopy (Colon Cancer Screening) 2011 Shingles Immunization (1 of 2) 2016 Breast Cancer Screening 12/08/2023 12/07/2021 Influenza Immunization (Adul t) (#1) 2024 03/05/2023, 02/16/2020, 02/15/2019, Additional history exists Depression Screening 05/19/2024 05/19/2023, 05/15/2023, 10/24/2021, Additional history exists Social Determinants Of Healt h (SDOH) 05/19/2024 05/19/2023, 05/26/2019, 05/25/2018 Preventive Care Visit 05/19/2025 05/19/2023 , 10/24/2021, 05/31/2020, Additional history exists Pap Smear (Cervical Cancer Screening) 06/18/2026 06/19/2023, 03/04/2019, 12/19/2015, Additional history exists Lipid Profile Screening (Cholesterol) 05/16/2028 05/16/2023, 03/19/2022, 10/23/2021, Additional history exists Tetanus (Adult) Immunization 05/25/2028 05/25/2018, 12/20/2008 Cervical Cancer Screening 06/18/2028 HPV/Cotest (Cervical Cancer Screening) 06/18/2028 06/19/2023, 06/19/2023, 03/04/2019, Additional history exists Colonoscopy (Colon Cancer Screening) 04/05/2032 04/05/2022 Colorectal Cancer Screening 04/05/2032 HIV Screening Completed 05/21/2017 Pertussis (Adult) Immunization Completed 05/25/2018 , 12/20/2008 COVID-19 Vaccine Discontinued 12/08/2020 Hepatitis C Screen Completed 10/23/2021 Procedures Procedure Name Priority Date/Time Associated Diagnosis [...] Imaging System with Manual Evaluation 06/26/2023 19:05 [facility] Specimen Adequacy Satisfactory for Evaluation - transformation zone component present 06/26/2023 19:05 [facility] General Categorization Negative for intraepithelial lesion or malignancy 06/26/2023 19:05 [facility] Attestation . 06/26/2023 19:05 [facility] at 1905 Clinical History See below 06/26/19 19:05 [facility] HPV The result for the Human Papillomavirus (HPV) Detection-High Risk Types is Negative. No E6 or E7 mRNA is detected from HPV types 16,18,31,33,35,39 ,45,51,52,56,58,5 9,66, and 68 by volunteer services assistant mediated amplification.Molly ting was performed on specimen [id number] and was resulted on 06/26/2023 1905 EST by IVETH, LAB INSTRUMENT RESULTS IN 06/26/2023 19:05 [facility] Performing Lab [facility] 06/26/2023 19:05 [facility] Scanned Images 06/26/2023 19:05 [facility] Pap Test CERVIX UTERI STRUCTURE / Unknown 06/19/2023 15:38 EST 06/20/2023 11:54 EST Jasmyne Camarena MD PATHOLOGY ORDERABLES [facility] [address] [place] [address] * LIPID PROFILE (INCLUDES CHOLESTEROL, TRIGLYCERIDES, HDL, LDL) (05/16/2023 6:35 EST) Cholesterol, External 210 <200 mg/dL [facility] Comment:H Triglycerides, External 89 <150 mg/dL [facility] HDL, External 51 40 - 60 mg/dL [facility] LDL, External 142 <100 mg/dL [facility] Comment:H Chol/HDL Ratio, External 51 40 - 60 mg/dL [facility] Fasting?, External [facility] Blood VENOUS BLOOD / Unknown 05/16/2023 6:35 EST Historical Provider CHEMISTRY & BLOOD GAS ORDERABLES [facility] * HEPATITIS C AB W REFLEX TO HCV RNA BY PCR (10/23/2021 7:50 EDT) Hep C Antibody Negative Negative 10/24/2021 11:39 EDT [facility] Blood VENOUS BLOOD / Unknown 10/23/2021 7:50 EDT 10/23/2021 16:38 EDT Provider Outr Resulting Lab CHEMISTRY & BLOOD GAS ORDERABLES Performing Organization Address City/[facility]/ZIP Co de Phone Number [facility] [address] [place] [address] * HIV 1/2 ANTIGEN AND ANTIBODY, 4TH GENERATION (05/21/2017 11:24 EST) HIV 1/2 Antibody Negative Negative 05/22/19 12:35 EST [facility] Comment: Fourth generation assay performed on the Eyeonaaur. If acute HIV-1 infection is suspected in a high risk patient, submit plasma specimen for HIV-1 RNA quantification test. Blood specimen (specimen) BLOOD SPECIMEN / Unknown 05/21/2017 11:24 EST 05/21/2017 13:53 EST Jasmyne Poe MD IMMUNOLOGY AND S EROLOGY ORDERABLES Performing Organization Address City/[facility]/ZIP Co de Phone Number [facility] [address] [place] [address] from Last 3 Months or Most Recently Relevant to Health Maintenance Advance Directives For more information, please contact: [phone] * Full Code (Latest Code Status on File) Date Activated Date Inactivated Comments 10/03/2020 7:02 10/04/2020 15:04 Question Answer Comments Reason for decision includes: Full code consistent with overall plan of care Who participated in the discussion? Not Discusse d Care Teams Kitchenwhere Maker Relationship Specialty Start Date End Date Jasmyne Poe MD [address] [place] [phone] PCP - General 01/07/13
--- OUTSIDE RECORDS SUMMARY | 2023-12-03 02:05 | XMS_ITS | Encounter Summary ---
Author Organization [facility] [place] [address] Care Team Providers Care Pest Control Pilot Name Role Phone Unavailable Primary Care Provider Unavailabl e Encounter Details Date Type Department Care Team (Latest Contact Info) Description 04/24/2022 Travel Social History Tobacco Use Types Packs/Day Years [...] 12/18/2023 3:00 PM EDT Appointment XRay at [address] [place] [phone] 12/18/2023 4:00 PM EDT Office Visit Orthopaedics at [facility] [place] [address] Laurent Castanon MD [facility] [place] [address] documented as of this encounter Visit Diagnoses Not on filedocumented in this encounter
--- OUTSIDE RECORDS SUMMARY | 2023-12-03 02:05 | XMS_ITS | Encounter Summary ---
Author Organization [facility] Address [facility] [place] [address] Care Team Providers Care Bowling Alley Operator Name Role Phone Unavailable Primary Care Provider Unavailabl e Reason for Visit * Reason Comments Establish Care R FOOT PAIN * Consultation (Routine) - Closed Specialty Diagnoses / Procedures Referred By Meka james Referred To Contact Orthopaedics Diagnoses R FOOT PAIN Procedures R FOOT PAIN Self mail [facility] [address] [place] [address] Referral ID Status Reason Start Date Expiration Date V isits Requested Visits Authorized [id number] Closed Consult, Test & Treat 03/01/2021 03/01/2022 1 1 Encounter Details Date Type Department Care Team (Latest Contact Info) Description 04/03/2021 4:30 PM EST Office [place] [address] Laurent Castanon MD [facility] [address] [place] [address] Undifferentiated connective tissue disease; Hallux valgus of right foot Social History Tobacco Use Types Packs/Day Years Used Date Smoking Tobacco: Never Smokeless Tobacco: Never Sex and Gender Information Value Date Recorded Sex Assigned at Not on file Gender Identity Not on file Sexual Orientation Not on file documented as of this encounter Last Filed Vital Signs Vital Sign Reading Time Taken Comments Blood Pressure 142/85 04/03/2021 4:15 PM EST Pulse 65 04/03/2021 4:15 PM EST Temperature - - Respiratory Rate - - Oxygen Saturation - - Inhaled Oxygen Concentration - - Weight 82.6 kg (182 lb) 04/03/2021 4:15 PM EST Height 175.3 cm (5' 9) 04/03/2021 4:15 PM EST Body Mass Index 26.88 04/03/2021 4:15 PM EST documented in this encounter Progress Notes * Lillian Matthews APRN - 04/03/2021 4:30 PM EST PATIENT NAME: Kirsten Almaguer AGE: 55 y.o. MR#: [id number] DATE OF VISIT: 04/03/2021 CHIEF COMPLAINT: RIGHT foot bunion pain HISTORY OF PRESENT ILLNESS: Ms. Almaguer is a 55 y.o. female who comes into clinic today for evaluation of the right bunion pain and 2nd toe pain with deformity. 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 She has tried toe separators, widebox shoes like Hoka's and Marci. She has gotten custom orthotics. She describes the pain as burning over the bunion. Past medical history: Patient Active Problem List Diagnosis Date Noted ??? Osteoarthrosis 06/07/2020 ??? Mild aortic stenosis 03/20/2020 ??? Undifferentiated connective tissue disease 07/22/2019 ??? PAF (paroxysmal atrial fibrillation) 03/23/2018 ??? Acquired hypothyroidism 12/19/2015 ??? Anxiety 12/19/2015 Medications: ??? vit C/Zn gluc/herbal no.325 (ELDERBERRY ZINC VIT C MM) ??? melatonin 3 mg Tablet ??? VITAMIN B COMPLEX ORAL ??? dilTIAZem (Cardizem) 30 mg Tablet ??? cholecalciferol, Vitamin D3, 50 mcg (2,000 unit) Capsule ??? [id number] ACID ORAL ??? levothyroxine (Synthroid) 50 mcg Tablet ??? Magnesium Oxide 250 mg magnesium Tablet ??? dilTIAZem XR (Dilacor XR) 120 mg Capsule,Degradable Cnt Release ??? aspirin 81 mg Tablet, Chewable ??? L-Methylfolate 15 mg Tablet Allergies: Allergies Allergen Reactions ??? Penicillins Anaphylaxis Tolerates cephalexin ??? Sulfa (Sulfonamide Antibiotics) Rash Social history: Social History Tobacco Use ??? Smoking status: Never Smoker ??? Smokeless tobacco: Never Used Substance Use Topics ??? Alcohol use: Not on file Review of systems: No chest pain or shortness of breath No fevers, night sweats or chills Vital signs: Patient Vitals for the past 24 hrs: Pulse BP 04/03/21 1615 65 142/85 Physical exam: Ms. Almaguer is a 55 y.o. female who is alert and oriented. She is in no acute discomfort and is resting comfortably in the exam room. No use of accessory muscles or retraction. Normal respiratory rate. Exam RIGHT Ankle: Skin: normal Strength: 5/5 PlantarFlexion: 45 (normal 0-45) Dorsiflexion: 20 (normal 0-20) Pronation/ Eversion (in): 25 (normal 0-25) Supination / Inversion (out) 35 (normal 35) DP pulse +2/Palpable Hallus valgus with overlying redness, 2nd toe hammertoe deformity PT pulse +2/palpable Imaging studies: Per Dr. Castanon's note Assessment and plan:: 55 y.o. year-old female who has hallus valgus that has worsened despite conservative measures. Thishas become painful for her. She would like to pursue surgical intervention. Patient seen with Dr Castanon who offered her surgical correction for hallus valgus. This plan was discussed with the patient and they are in agreement. All of the patient's questions were answered. The patient understand to contact us if they have any other questions or concerns. FU: surgical planning Lillian Matthews APRN The above dictation was made with voice recogonition software * Laurent Castanon MD - 04/03/2021 4:30 PM EST I saw the patient in conjunction with Frances Matthews and agree with her assessment and plan. 55-year-old female with significant right hallux valgus with a crossover second toe. X-rays showed increasedintermetatarsal angle and uncoverage of the sesamoids. We discussed different treatment options, including conservative measures such as wide toe box shoes and toe spacers. Given her pattern of discomfort and her x-rays, I do think that consideration of surgical correction is reasonable. We discussed a Lapidus style hallux valgus correction with second hammertoe correction, likely to include a Yonny shortening second metatarsal osteotomy and PIP joint fusion. We discussed the investment in risk a nd recovery with this procedure, including the 6 weeks of nonweightbearing. We discussed the risks of the procedure, including bleeding, infection, damage to nerves and vessels, need for reoperation.She would like to consider her options, as the recovery is onerous. We are happy to answer any questions she may have and move forward with surgical planning should she wish to pursue it. documented in this encounter Plan of Treatment Upcoming Encounters Date Type Department Care Team (Late st Contact Info) Description 12/18/2023 3:00 PM EDT Appointment XRay at [address] [place] [address] 12/18/2023 4:00 PM EDT Office [place] [address] Laurent Castanon MD [facility] [place] [address] documented as of this encounter Results * XR Foot Min 3 views Right (Generic) (04/03/2021 5:00 PM EST) Anatomical Region Laterality Modality Foot Right Digital Radiogra phy Impressions 04/04/2021 8:22 AM EST 1. ??Metatarsus primus varus and hallux valgus with crosstable deformity between the second and first toes. 2. ??Osteoarthropathy of the first and second metatarsophalangeal joint and the second and third tarsometatarsal joints. Thank you for letting us participate in the care of this patient. ??If you are a health care provider and have any questions regarding this report, please contact the number below. ??For patients who have questions please contact the health md do resident urgent care that requested your imaging first. ? Narrative 04/04/2021 8:22 AM EST EXAMINATION: XR FOOT MIN 3 VIEWS RIGHT (GENERIC) CLINICAL HISTORY: R foot pain (as entered by ordering provider in the order requisition) TECHNIQUE: Weightbearing AP, oblique, and lateral views the right foot. COMPARISON: None FINDINGS: Metatarsus primus varus and hallux valgus. There is mild uniform joint space narrowing subchondral sclerosis and marginal osteophyte formation of the first metatarsophalangeal joint. There is also osteophyte formation of the second metatarsophalangeal joint. There is cross toe deformity of the second and first toes. There is a plantar calcaneal enthesophyte. No appreciable tibiotalar joint effusion. No appreciable fracture. There is joint space narrowing at multiple tarsometatarsal joints. Procedure Note Jazlyn Silvestre MD - 04/04/2021 EXAMINATION: XR FOOT MIN 3 VIEWS RIGHT (GENERIC) CLINICAL HISTORY: R foot pain (as entered by ordering provider in theorder requisition) TECHNIQUE: Weightbearing AP, oblique, and lateral views the right foot. COMPARISON: None FINDINGS: Metatarsus primus varus and hallux valgus. There is mild uniform jointspace narrowing subchondral sclerosis and marginal osteophyte formation of thefirst metatarsophalangeal joint. There is also osteophyte formation of thesecond metatarsophalangeal joint. There is cross toe deformity of the second andfirst toes. There is a plantar calcaneal enthesophyte. No appreciable tibiotalarjoint effusion. No appreciable fracture. There is joint space narrowing atmultiple tarsometatarsal joints. IMPRESSION 1. Metatarsus primus varus and hallux valgus with crosstable deformitybetween the second and first toes. 2. Osteoarthropathy of the first and second metatarsophalangeal joint andthe second and third tarsometatarsal joints. Thank you for letting us participate in the care of this patient. If youare a health care provider and have any questions regarding this report,please contact the number below. For patients who have questions please contactthe health md do resident urgent care that requested your imaging first. Laurent Castanon MD IMG DX ORDERABLES documented in this encounter Visit Diagnoses Diagnosis Undifferentiated connective tissue disease Unspecified diffuse connective tissue disease Hallux valgus of right foot Undifferentiated connective tissue disease Unspecified diffuse connective tissue disease documented in this encounter
--- OUTSIDE RECORDS SUMMARY | 2023-12-03 02:05 | XMS_ITS | Encounter Summary ---
Author Organization [facility] [place] [address] Care Team Providers Care Wig Stylist Name Role Phone Unavailable Primary Care Provider Unavailabl e Reason for Visit * Reason Comments Follow-up Undifferentiated con nective tissue disease Encounter Details Date Type Department Care Team (Latest Contact Info) Description 08/23/2021 3:00 PM EDT TH Visit (TeleHealth) [place] [address] Luke Sandhu MD [facility] [address] Undifferentiated connective tissue disease Social History Tobacco Use Types Packs/Day Years Used Date Smoking Tobacco: Never Smokeless Tobacco: Never Sex and Gender Information Value Date Recorded Sex Assigned at Not on file Gender Identity Not on file Sexual Orientation Not on file documented as of this encounter Progress Notes * Luke Sandhu MD - 08/23/2021 3:00 PM EDT [facility] Rheumatology Chief rheumatologic issue: Undifferentiated connective tissue disease. HPI: Kirsten was originally referred by her Primary Care Provider Jasmyne Poe from [facility] for evaluation of myalgias, polyarthralgias in the [...] protein as well as a borderline positive lggd-utytsk-rwnmikzb DNA. According to Eular/ACR 2019 classification criteria [...] a total of 6 points for an xpzs-xybxjc-bihksgmp DNA despite the fact that this is [...] might be contributing. She will be seeing [facility] cardiology and will be followed by Dr. Posey. She is taking aspirin 81 mg daily. Recent echocardiogram was done and showed peak pulmonary artery pressures of 36. She has lost approximately 30 pounds using a Nutrisystem diet. She did not get high-resolution CT scan which I had ordered for her. She did have pulmonary function test 03/19/[address] [facility]. FVC 90%. FEV1 89%. FEV1/FVC 96%. FEF [...] She is followed by Dr. Posey at [facility] [place]. She has diltiazem 30 mg to take as needed Had high-resolution CT scan of the chest at [facility] in late February. Results not yet available to me. Recent laboratory tests at [facility] including hemoglobin A1c 5.6, vitamin D, comprehensive metabolic panel, and ferritin 78. 11/14/2020 interval events: Had cardiac ablation for paroxysmal atrial fibrillation October 04, 2019 (PVE/PVI). She will be on Eliquis until January 03. 12 days after the procedure she presented to the emergency room at [facility] 6-28 for a febrile [...] events: Kirsten has been vaccinated with the enStage vaccine product. She has not received a [...] symptoms. Labs 08-06-2021 ESR 3 CRP 0.15 Review of Systems: Constitutional: No fevers. She is completely vaccinated against COVID-19 with enStage. No booster HEENT: No eye pain or previously diagnosed [...] mg by mouth every 24 hours. ??? ZMFZVWWFMBKS-WIAI-SXKOM ACID ORAL Take by mouth. ??? L-Methylfolate 15 mg Tablet Take 15 mg by mouth Daily. ??? levothyroxine (Synthroid) 50 mcg Tablet ??? Magnesium Oxide 250 mg magnesium Tablet Take 500 mg by mouth. No current facility-administered medications for this visit. Allergies Allergen Reactions ??? Penicillins Anaphylaxis Tolerates cephalexin ??? Sulfa (Sulfonamide Antibiotics) Rash Physical Exam: There were no vitals taken for this visit. Telephone visit General appearance and movement: Alert. Nontoxic. No distress. Healthy appearing. Energetic. Appropriate speech thought and content Labs: 03/02/2021: ESR 2. CRP less than [...] negative. Anti-SSA antibody negative. Anti-Sexton antibody negative. Anti-LIQUEFACTION AND REGASIFICATION HELPER antibody negative. Kbgf-yrveim-tuwsdcwq DNA antibody slightly positive at 38.3. Diagnostic [...] Assessment: 1. Undifferentiated connective tissue disease: I thought that Kirsten was having some low-level smoldering inflammatory symptoms. Today it appears that her symptoms have lessened. She does not appear to be a candidate for a corticosteroid trial at this point. We repeated inflammatory markers and they were both low. We again discussed the possibility using a short course of corticosteroid as a trial to determine if inflammatory symptoms diminish. We again discussed the possibility of using hydroxychloroquine for an entity consistent with undifferentiated connective tissue disease. ALAINA profiles as noted. Specific antibody anticentromere antibody positive. Borderline positive caqt-nrzarm-lldrxytd DNA. Transthoracic echocardiogram with pulmonary pressures in the moderately elevated range 40to 45 mmHg. Repeat testing showed peak pulmonary artery pressure 36 mmHg. She has had a high-resolution CT scan test at [facility]. I still have a low threshold to initiate therapy with hydroxychloroquine. Previously discussed potential risks and benefits of hydroxychloroquine. We will continue to monitor at this time. I have asked her to contact me with any new signs or symptoms including alopecia, malar rash, mouth sores, increasing sicca symptoms, small joint swelling and increased stiffness, respirophasic pain, fevers. We will have a 6 -month in person follow-up appointment Plan: . 33 minutes total spent on this visit including precharting, review of laboratory, imaging data, andnotes from other providers, vlaq-jv-dxix interaction, and documentation. documented in this encounter Plan of Treatment Upcoming Encounters Date Type Department Care Team (Late st Contact Info) Description 12/18/2023 3:00 PM EDT Appointment XRay at [address] [place] [phone] 12/18/2023 4:00 PM EDT Office Visit Orthopaedics at [facility] [place] [address] Laurent Castanon MD [facility] [place] [address] documented as of this encounter Visit Diagnoses Diagnosis Undifferentiated connective tissue disease Unspecified diffuse connective tissue disease documented in this encounter
--- OUTSIDE RECORDS SUMMARY | 2023-12-03 02:05 | XMS_ITS | Encounter Summary ---
Author Organization [facility] Address [address] [place] [address] Care Team Providers Care Associate Consulting Engineer Name Role Phone Jasmyne Poe MD Primary Care Provider + Encounter Details Date Type Department Care Team (Late st Contact Info) Description 07/31/2023 Orders Only [facility] Adult Primary Care - [address] [address] Jasmyne Poe MD [address] [place] [phone] Social History Tobacco Use Types Packs/Day Years Used Date Smoking Tobacco: Never Smokeless Tobacco: Never Comments:a little in high sc hool Alcohol Use Standard Drinks/Week Comments Not Currently 0 (1 standard drink = 0.6 oz pur e alcohol) [facility] Utilities Answer Date Recorded In the past 12 months has [employer] electric, gas, oil, or water company threatened [...] place to sleep or slept in a custodial (including now)? No 05/19/2023 Interpersonal Safety Answer [...] Info) Description 05/20/2024 14:45 EST Office Visit [facility] Adult Primary Care - [address] [phone] Jasmyne Poe MD [address] [place] [phone] documented as of this encounter Visit Diagnoses Not on filedocumented in this encounter Care Teams Associate Consulting Engineer Relationship Specialty Start Date End Date Jasmyne Poe MD [address] [place] [phone] PCP - General 01/07/13 documented as of this encounter
--- OUTSIDE RECORDS SUMMARY | 2023-12-03 02:05 | XMS_ITS | Encounter Summary ---
Author Organization Health system Address [address] [place] [address] Care Team Providers Care Digital Marketing Manager Name Role Phone Jasmyne Poe MD Primary Care Provider + Encounter Details Date Type Department Care Team (Late st Contact Info) Description 06/20/2023 Lab Requisition [facility] Pathology & Laboratory Medicine - [facility] [address] [place] [address] Jasmyne Camarena MD [address] [place], [place] [id number] [id number] Encounter for other general examination Social History Tobacco Use Types Packs/Day Years Used Date Smoking Tobacco: Never Smokeless Tobacco: Never Comments:a little in high sc hool Alcohol Use Standard Drinks/Week Comments Not Currently 0 (1 standard drink = 0.6 oz pur e alcohol) [facility] Utilities Answer Date Recorded In the past 12 months has [employer] electric, gas, oil, or water company threatened [...] place to sleep or slept in a fpc (including now)? No 05/19/2023 Interpersonal Safety Answer Date Record ed How often does anyone, inclyany candice family, hit, punch or physically hurt you? 05/19/2023 How often does anyone, inclyany candice family, insult, scream, curse or threaten to [...] Info) Description 05/20/2024 14:45 EST Office Visit [facility] Adult Primary Care - [address] [address] Jasmyne Poe MD [address] [place] [phone] documented as of this encounter Procedures Procedure Name Priority Date/Time Associated Diagnosis Comments PAP TEST Today 06/19/2023 15:38 EST Encounter for other general examination HPV DNA DETECTION WITH GENOTYPING, PCR Today 06/19/2023 15:38 EST Encounter for other general examination documented in this encounter Results * HUMAN PAPILLOMAVIRUS (HPV) DETECTION-HIGH RISK TYPES (06/19/2023 15:38 EST) HPV other High Risk types, PCR Negative Negative 06/26/2023 19:05 EST [facility] Comment:No E6 or E7 mRNA is detected from HPV types 16,18,31,33,35,39,45,51,52,56,58,59,66, and 68 by president celebrity acquistion mediated amplification. Pap Test CERVIX UTERI STRUCTURE / Unknown 06/19/2023 15:38 EST 06/25/2023 13:44 EST Jasmyne Camarena MD MICROBIOLOGY - GENER AL ORDERABLES [facility] [address] [place] [address] * PAP TEST (06/19/2023 15:38 EST) Specimens A. Cervix and/or Endocervix , ThinPrep Imaging System with Manual Evaluation 06/26/2023 19:05 [facility] Specimen Adequacy Satisfactory for Evaluation - transformation zone component present 06/26/2023 19:05 [facility] General Categorization Negative for intraepithelial lesion or malignancy 06/26/2023 19:05 [facility] Attestation . 06/26/2023 19:05 [facility] at 1905 Clinical History See below 06/26/19 24 19:05 [facility] HPV The result for the Human Papillomavirus (HPV) Detection-High Risk Types is Negative. No E6 or E7 mRNA is detected from HPV types 16,18,31,33,35,39 ,45,51,52,56,58,5 9,66, and 68 by president celebrity acquistion mediated amplification.Molly ting was performed on specimen [id number] and was resulted on 06/26/2023 1905 EST by IVETH, LAB INSTRUMENT RESULTS IN 06/26/2023 19:05 [facility] Performing Lab [facility] 06/26/2023 19:05 [facility] Scanned Images 06/26/2023 19:05 [facility] Pap Test CERVIX UTERI STRUCTURE / Unknown 06/19/2023 15:38 EST 06/20/2023 11:54 EST Jasmyne Camarena MD PATHOLOGY ORDERABLES [facility] [address] [place] [address] documented in this encounter Visit Diagnoses Diagnosis Encounter for other general examination documented in this encounter Care Teams Digital Marketing Manager Relationship Specialty Start Date End Date Jasmyne Poe MD [facility] [place] [phone] PCP - General 01/07/13 documented as of this encounter
--- OUTSIDE RECORDS SUMMARY | 2023-12-03 02:05 | XMS_ITS | Encounter Summary ---
Author Organization [facility] Address [facility] [place] [address] Care Team Providers Care Shift Coordinator Name Role Phone Unavailable Primary Care Provider Unavailabl e Encounter Details Date Type Department Care Team (Latest Contact Info) Description 03/16/2021 2:30 PM EST TH Visit (TeleHealth) Rheumatology at [facility] [place] [address] Luke Sandhu MD [facility] [place] [address] Undifferentiated connective tissue disease Social History Tobacco Use Types Packs/Day Years Used Date Smoking Tobacco: Never Smokeless Tobacco: Never Sex and Gender Information Value Date Recorded Sex Assigned at Not on file Gender Identity Not on file Sexual Orientation Not on file documented as of this encounter Progress Notes * Luke Sandhu MD - 03/16/2021 2:30 PM EST [facility] Rheumatology Chief rheumatologic issue: Undifferentiated connective tissue disease. HPI: Kirsten was originally referred by her Primary Care Provider Jasmyne Poe from [facility] for evaluation of myalgias, polyarthralgias in [...] protein as well as a borderline positive lthp-uqrimv-graflzrw DNA. According to Eular/ACR 2019 classification criteria [...] a total of 6 points for an ughs-dfrnsv-gvolqtwa DNA despite the fact that this is [...] might be contributing. She will be seeing [facility] cardiology and will be followed by Dr. Posey. She is taking aspirin 81 mg daily. Recent echocardiogram was done and showed peak pulmonary artery pressures of 36. She has lost approximately 30 pounds using a Nutrisystem diet. She did not get high-resolution CT scan which I had ordered for her. She did have pulmonary function test 03/19/2018 at [facility]. FVC 90%. FEV1 89%. FEV1/FVC 96%. FEF [...] She is followed by Dr. Posey at [facility] cardiology. She has diltiazem 30 mg to take as needed Had high-resolution CT scan of the chest at [facility] in late February. Results not yet available to me. Recent laboratory tests at [facility] including hemoglobin A1c 5.6, vitamin D, comprehensive metabolic panel, and ferritin 78. 11/14/2020 interval events: Had cardiac ablation for paroxysmal atrial fibrillation October 04, 2019 (PVE/PVI). She will be on Eliquis until January 03. 12 days after the procedure she presented to the emergency room at [facility] 628 for a febrile episode upto 101.6 associated with malaise and fatigue starting 2 days prior to presentation to the emergencyroom. She also had some mild abdominal discomfort on presentation to the emergency room she was afebrile. She had taken some acetaminophen prior to arrival. She was hemodynamically stable and oxygenat ing well on room air. She had normal WBC, and EKG showing sinus rhythm without atrial fibrillation and a chest x-ray which was read as normal. She had an elevated CRP to 20 and a negative COVID-19 test. Blood cultures were negative. Additionally she had normal glucose magnesium electrolytes creatinine BUN hemoglobin platelet count differential she had a chest angiogram CT. There is no evidence ofa transesophageal fistula. There was mild left atrial [...] possible reperfusion sensation yet no color changes. Review of Systems: Constitutional: No fevers. She is completely vaccinated against COVID-19 with [employer]. No booster HEENT: No eye pain or [...] Outpatient Medications Medication Sig Dispense Refill ??? apixaban (Eliquis) 5 mg Tablet Take 5 mg by mouth Twice daily. ??? melatonin 3 mg Tablet Take by mouth. ??? VITAMIN B COMPLEX ORAL Take 1 each by mouth Daily. ??? dilTIAZem XR (Dilacor XR) 120 mg Capsule,Degradable Cnt Release Take 120 mg by mouth daily. ??? dilTIAZem (Cardizem) 30 mg Tablet Take 30 mg by mouth Once daily as needed. ??? cholecalciferol, Vitamin D3, 50 mcg (2,000 unit) Capsule Take 2,000 Units by mouth. ??? aspirin 81 mg Tablet, Chewable Take 81 mg by mouth every 24 hours. ??? ZOEWGNXMPVJL-HQGN-POULG ACID ORAL Take by mouth. ??? L-Methylfolate 15 mg Tablet Take 15 mg by mouth Daily. ??? levothyroxine (Synthroid) 50 mcg Tablet ??? Magnesium Oxide 250 mg magnesium Tablet Take by mouth. No current facility-administered medications for this visit. Allergies Allergen Reactions ??? Penicillins Anaphylaxis Tolerates cephalexin ??? Sulfa (Sulfonamide Antibiotics) Rash Physical Exam: There were no vitals taken for this visit. Telephone visit General appearance and movement: Alert. Nontoxic. No distress. Healthy appearing. Energetic. Gets out of chair easily without stiffness or pain. HEENT: Anicteric sclera. Clear conjunctiva. No facial rash. Labs: 03/02/2021: ESR 2. CRP less than [...] negative. Anti-SSA antibody negative. Anti-Sexton antibody negative. Anti-CONTENT ASSISTANT antibody negative. Wqbd-owkkqv-scxdrmdy DNA antibody slightly positive at 38.3. Diagnostic [...] Assessment: 1. Undifferentiated connective tissue disease: I still think Kirsten may be having some low-levelsmoldering inflammatory symptoms. We repeated inflammatory markers and they were both low. We againdiscussed the possibility using a short course of corticosteroid as a trial to determine if inflammatory symptoms diminish. I think at this point her procedure has healed adequately to consider a short course of corticosteroid. She will be meeting with her central scheduler and at that time will ask about the use of hydroxychloroquine. ALAINA profiles as noted. Specific antibody anticentromere antibody positive. Borderline positive xhxh-amtmje-rapgskos DNA. Transthoracic echocardiogram with pulmonary pressures in the moderately elevated range 40 to 45 mmHg. Repeat testing showed peak pulmonary arterypressure 36 mmHg. She has had a high-resolution CT scan test at [facility]. I have not yet received this.I still have a low threshold to initiate therapy with hydroxychloroquine. Previously discussed potential risks and benefits of hydroxychloroquine. We will continue to monitor at this time. I have asked her to contact me with any new signs or symptoms including alopecia, malar rash, mouth sores, increasing sicca symptoms, small joint swelling and increased stiffness, respirophasic pain, fevers. We will have a 2-month telehealth follow-up appointment at which time we will consider short courseof prednisone if not sooner Plan: Consider course of corticosteroid for 5-7 days. Please note that this note was completed with the assistance of voice recognition software. As result unintentional engineering officer errors and/or typographical mistakes are possible. If you notice errors please bring them to my attention. If any area requires explanation or clarification please do not hesitate to contact me. 38 minutes total spent on this visit including precharting, review of laboratory, imaging data, andnotes from other providers, xsti-nq-cmer interaction, and documentation. documented in this encounter Plan of Treatment Upcoming Encounters Date Type Department Care Team (Late st Contact Info) Description 12/18/2023 3:00 PM EDT Appointment XRay at [address] [place] [phone] 12/18/2023 4:00 PM EDT Office Visit [place] [address] Laurent Castanon MD [facility] [place] [address] documented as of this encounter Visit Diagnoses Diagnosis Undifferentiated connective tissue disease Unspecified diffuse connective tissue disease documented in this encounter
--- OUTSIDE RECORDS SUMMARY | 2023-12-03 02:05 | XMS_ITS | Encounter Summary ---
Author Organization [facility] Address [address] [place] [address] Care Team Providers Care Log Washer Name Role Phone Jasmyne Poe MD Primary Care Provider + Encounter Details Date Type Department Care Team (Late st Contact Info) Description 06/03/2023 Lab Requisition [facility] Pathology & Laboratory Medicine - [facility] [address] [place] [address] Outr Resulting Lab, Provider Social History Tobacco Use Types Packs/Day Years Used Date Smoking Tobacco: Never Smokeless Tobacco: Never Comments:a little in high sc hool Alcohol Use Standard Drinks/Week Comments Not Currently 0 (1 standard drink = 0.6 oz pur e alcohol) [facility] Utilities Answer Date Recorded In the past 12 months has [employer], gas, oil, or water [employer] threatened to shut off services in your [...] [facility] [place] [address] [place] [address] Jasmyne Poe MD [address] [place] [phone] documented as of this encounter Procedures Procedure Name Priority Date/Time Associated Diagnosis Comments ESTRADIOL, ADULTS Routine 06/03/2023 7:15 EST [facility] Routine 06/03/2023 7:15 EST documented in this encounter Results * FSH (06/03/2023 7:15 EST) FSH 56.8 See Note mIU/mL 06/03/2023 18:39 EST [facility] Blood VENOUS BLOOD / Unknown 06/03/2023 7:15 EST 06/03/2023 17:04 EST Narrative [facility] - 06/03/2023 18:39 EST NOTE: Female FSH Reference Ranges (Menstruating): PHYSIOLOGICAL STATUS ? REFERENCE RANGE ? Follicular (-12 to -4 days): ?? 2.5 - 10.2 mIU/mL Midcycle (-3 to +2 days): ?3.4 - 33.4 mIU/mL Luteal (+4 to +12 days): ? 1.5 - 9.1 mIU/mL Postmenopausal: ?23.0 - 116.3 mIU/mL Reference Ranges for pediatric non-menstruating female patients have not been established. Provider Outr Resulting Lab CHEMISTRY & BLOOD GAS ORDERABLES Performing Organization Address [facility] de Phone Number [facility] [address] [place] [address] * ESTRADIOL, ADULTS (06/03/2023 7:15 EST) [facility] Signature Estradiol 18 See Note pg/mL 06/03/2023 18:12 EST [facility] Comment: NOTE: FEMALE REFERENCE RANGES: MENSTRUATING ? By cycle day relative to LH peak Follicular ?(-12 to -4 days) ??20-144 pg/mL Midcycle ?(-3 to +2 days) ?? 64-357 pg/mL Luteal ?(+4 to +12 days) ??56-214 pg/mL POSTMENOPAUSAL ?<32 pg/mL *Cross reactivity with Fulvestrant could lead to a falsely elevated estradiol result in patients treated with this drug. Blood VENOUS BLOOD / Unknown 06/03/2023 7:15 EST 06/03/2023 17:04 EST Provider Outr Resulting Lab CHEMISTRY & BLOOD GAS ORDERABLES Performing Organization Address [facility] de Phone Number [facility] [address] [place] [address] documented in this encounter Visit Diagnoses Not on filedocumented in this encounter Care Teams Log Washer Relationship Specialty Start Date End Date Jasmyne Poe MD [address] [place] [phone] PCP - General 01/07/13 documented as of this encounter
--- OUTSIDE RECORDS SUMMARY | 2023-12-03 02:05 | XMS_ITS | Encounter Summary ---
Author Organization [facility] [place] [address] Care Team Providers Care Immigration Officer Name Role Phone Unavailable Primary Care Provider Unavailabl e Reason for Visit * Reason Comments Follow-up Undifferentiated con nective tissue disease Encounter Details Date Type Department Care Team (Latest Contact Info) Description 06/07/2020 2:00 PM EST TH Visit (TeleHealth) [place] [address] Luke Sandhu MD [facility] [address] Undifferentiated connective tissue disease Social History Tobacco Use Types Packs/Day Years Used Date Smoking Tobacco: Never Assessed Sex and Gender Information Value Date Recorded Sex Assigned at Not on file Gender Identity Not on file Sexual Orientation Not on file documented as of this encounter Progress Notes * Luke Sandhu MD - 06/07/2020 2:00 PM EST [facility] rheumatology Chief rheumatologic issue: Undifferentiated connective tissue disease. HPI: Kirsten was originally referred by her Primary Care Provider Jasmyne Poe from [facility] for evaluation of myalgias, polyarthralgias in [...] protein as well as a borderline positive ibym-tqclte-ibegtuhy DNA. According to Eular/ACR 2019 classification criteria [...] a total of 6 points for an tkcd-fnxpvx-dgrsusjk DNA despite the fact that this is [...] might be contributing. She will be seeing [facility] cardiology and will be followed by Dr. Posey. She is taking aspirin 81 mg daily. Recent echocardiogram was done and showed peak pulmonary artery pressures of 36. She has lost approximately 30 pounds using a Nutrisystem diet. She did not get high-resolution CT scan which I had ordered for her. She did have pulmonary function test 03/19/2018 at [facility]. FVC 90%. FEV1 89%. FEV1/FVC 96%. [...] She is followed by Dr. Posey at [facility] cardiology. She has diltiazem 30 mg to take as needed Had high-resolution CT scan of the chest at [facility] in late February. Results not yet available to me. Recent laboratory tests at [facility] including hemoglobin A1c 5.6, vitamin D, comprehensive metabolic panel, and ferritin 78. Review of Systems: Constitutional: No fevers. She does have fatigue. HEENT: No eye pain or previously diagnosed inflammatory eye conditions. She has eye dryness. She uses artificial tears. No vision loss. No hearing loss. No tinnitus. No mouth sores. No dry mouth. No facial rash. Cardiovascular: Will get chest discomfort with atrial fibrillation episodes has stopped daily diltiazem. Pulmonary: Will feel short of breath with atrial fibrillation episodes Gastrointestinal: No significant upper or lower GI symptoms. Dermatologic: No rash Vascular: No vasomotor changes in the distal upper or lower extremities in response to cold weather. No history of blood clots or easy bruising. Musculoskeletal: Occasional myalgias and arthralgias. No small joint swelling. No dactylitis. No muscle weakness. Intermittent morning stiffness that can last up to approximately 1 hour Current Outpatient Medications Medication Sig Dispense Refill ??? dilTIAZem (Cardizem) 30 mg Tablet Take 30 mg by mouth Once daily as needed. ??? cholecalciferol, Vitamin D3, 50 mcg (2,000 unit) Capsule Take 2,000 Units by mouth. ??? aspirin 81 mg Tablet, Chewable Take 81 mg by mouth every 24 hours. ??? PBPUBMRFFIDO-XLWC-TXEMI ACID ORAL Take by mouth. ??? L-Methylfolate 15 mg Tablet Take 15 mg by mouth Daily. ??? levothyroxine (Synthroid) 50 mcg Tablet ??? Magnesium Oxide 250 mg magnesium Tablet Take by mouth. No current facility-administered medications for this visit. Not on File Physical Exam: There were no vitals taken for this visit. Telephone visit Sounds energetic and healthy. Appropriate speech thought and content. Labs: 12/11/2018: CBC with WBC 6.5 hemoglobin 13.9 [...] negative. Anti-SSA antibody negative. Anti-Sexton antibody negative. Anti-WELDING PANTOGRAPH OPERATOR antibody negative. Eoay-zhkdbj-imuihazq DNA antibody slightly positive at 38.3. Diagnostic imaging: Assessment: 1. Undifferentiated connective tissue disease: Still asymptomatic. ALAINA profiles as noted. Specific antibody anticentromere antibody positive. Borderline positive lqfv-erefpx-jaxmqpfo DNA. Transthoracic echocardiogram with pulmonary pressures in the moderately elevated range 40 to 45 mmHg. Repeat testing showed peak pulmonary artery pressure 36 mmHg. She has had a high-resolution CT scan test at [facility]. She will be faxing this to my attention today. I still have a low threshold to initiate therapy with hydroxychloroquine. Previously discussed potential risks and benefits of hydroxychloroquine. We will continue to monitor at this time. I have asked her to contact me with any new signs or symptoms including alopecia, malar rash, mouth sores, increasing sicca symptoms, small joint swelling andincreased stiffness, respirophasic pain, fevers. Plan: Obtain high resolution CT scan results. Schedule for complete blood count and urinalysis at [facility]. documented in this encounter Plan of Treatment Upcoming Encounters Date Type Department Care Team (Late st Contact Info) Description 12/18/2023 3:00 PM EDT Appointment XRay at [address] [place] [phone] 12/18/2023 4:00 PM EDT Office Visit Orthopaedics at [facility] [place] [address] Laurent Castanon MD [facility] [place] [address] documented as of this encounter Visit Diagnoses Diagnosis Undifferentiated connective tissue disease Unspecified diffuse connective tissue disease documented in this encounter
--- OUTSIDE RECORDS SUMMARY | 2023-12-03 02:05 | XMS_ITS | Encounter Summary ---
Author Organization [facility] Address [address] [place] [address] Care Team Providers Care Outdoor Guide Name Role Phone Jasmyne Poe MD Primary Care Provider + Reason for Visit * Reason Onset Date Comments Depression 05/15/2023 [facility] screening Encounter Details Date Type Department Care Team (Late st Contact Info) Description 05/15/2023 Telephone [facility] Adult Primary Care - [address] [address] Cassie Bradford RN Depression (PQ9 screening) Social History Tobacco Use Types Packs/Day Years [...] care, and heating? Not hard at all 05/15/2023 PHQ-2 Answer Date Recorded PHQ-2 SUBTOTAL 6 05/15/2023 Hunger Vital Sign Answer Date Recorded Within the past 12 months, y ou worried that your food would run out before you got the money to buy more. Never true 05/15/19 24 Within the past 12 months, t he food you bought just didn't last and you didn't have money to get more. Never true 05/15/2023 PRAPARE - Transportation Answer Date Re corded In the past 12 months, has l ack of transportation kept you from medical appointments or from getting medications? No 04/22 In the past 12 months, has l ack of transportation kept you from meetings, work, or from getting things needed for daily living? No 05/15/2023 Housing Stability Vital Sign Answer Juanito e Recorded In the last 12 months, was t here a time when you were not able to pay the mortgage or rent on time? No 05/15/2023 In the last 12 months, how many places have you lived? 1 05/15/2023 In the last 12 months, was t here a time when you did not have a steady place to sleep or slept in a retirement (including now)? No 05/15/2023 Interpersonal Safety Answer Date Record ed How often does anyone, inclyany harvey family, hit, punch or physically hurt you? 05/15/2023 How often does anyone, toi harvey family, insult, scream, curse or threaten to hurt you? 05/15/2023 Sex and Gender Information Value Date Recorded [...] encounter Miscellaneous Notes * Telephone Encounter - Cassie Bradford RN - 05/15/2023 0968 EST [facility] Adult Phq-2 Score (range: 0 - 6)6 (Further screening recommended) Critical Thoughts that you would be better off , or of hurting yourself in some way?Not at allFa Myc Adult Phq-7 Score (range: 0 - 21)6[facility] Adult Phq-9 Score (range: 0 - 27)12 (mild depression symptoms)Abnormal [facility] Screen Triage Response [facility] Questionnaire Abnormal Response Received This patient submitted a PHQ 9 Questionnaire with a concerning response of total score >10 or with a concern for suicidal thoughts. This patient is scheduled w/ Dr. Poe on 05/19/2023. 1. Did the patient score 10 or greater on this questionnaire? Yes Sooner visit found and offered? Yes, kirsten refused, states, this is an on going issue, I am fine. 2. Did the patient indicate thoughts of suicide or being better off ? No If yes, utilize .SUICIDERISKSCREENING Sooner visit found and offered? Yes Provider notified: Carol Ann Poe Date: 05/15 Time: 9:17 PM documented in this encounter Plan of Treatment Upcoming Encounters Date Type Department Care Team (Late st Contact Info) Description 05/20/2024 14:45 EST Office Visit [facility] Adult Primary Care - [address] [address] Jasmyne Poe MD [address] [place] [phone] documented as of this encounter Visit Diagnoses Not on filedocumented in this encounter Care Teams Outdoor Guide Relationship Specialty Start Date End Date Jasmyne Poe MD [address] [place] [phone] PCP - General 01/07/13 documented as of this encounter
--- OUTSIDE RECORDS SUMMARY | 2023-12-03 02:05 | XMS_ITS | Encounter Summary ---
Author Organization [facility] [place] [address] Care Team Providers Care Irrigationist Designer Name Role Phone Unavailable Primary Care Provider Unavailabl e Encounter Details Date Type Department Care Team (Latest Contact Info) Description 11/14/2020 4:00 PM EDT Office Visit Rheumatology at [facility] [place] [phone] Luke Sandhu MD [facility] [place] [address] Undifferentiated connective tissue disease Social History Tobacco Use Types Packs/Day Years Used Date Smoking Tobacco: Never Smokeless Tobacco: Never Sex and Gender Information Value Date Recorded Sex Assigned at Not on file Gender Identity Not on file Sexual Orientation Not on file documented as of this encounter Last Filed Vital Signs Vital Sign Reading Time Taken Comments Blood Pressure 130/76 11/14/2020 3:45 PM EDT Pulse 65 11/14/2020 3:45 PM EDT Temperature 36.8 ??C (98.2 ??F) 11/14/2020 3:45 PM ED T Respiratory Rate - - Oxygen Saturation 100% 11/14/2020 3:45 PM EDT Inhaled Oxygen Concentration - - Weight 82.6 kg (182 lb) 11/14/2020 3:45 PM EDT Height 175.3 cm (5' 9) 11/14/2020 3:45 PM EDT Body Mass Index 26.88 11/14/2020 3:45 PM EDT documented in this encounter Patient Instructions * Patient Instructions* Luke Sandhu MD - 11/14/2020 4:00 PM EDT Monitor for changing symptoms Will check ESR and CRP at [facility] documented in this encounter Progress Notes * Luke Sandhu MD - 11/14/2020 4:00 PM EDT [facility] Rheumatology Chief rheumatologic issue: Undifferentiated connective tissue disease. HPI: Kirsten was originally referred by her Primary Care Provider Jasmyne Poe from [facility] for evaluation of myalgias, [...] protein as well as a borderline positive qqda-aafzje-guuezueb DNA. According to Eular/ACR 2019 classification criteria [...] a total of 6 points for an eitt-hperjj-ytkcbsxu DNA despite the fact that this is [...] might be contributing. She will be seeing [facility] cardiology and will be followed by Dr. Posey. She is taking aspirin 81 mg daily. Recent echocardiogram was done and showed peak pulmonary artery pressures of 36. She has lost approximately 30 pounds using a Nutrisystem diet. She did not get high-resolution CT scan which I had ordered for her. She did have pulmonary function test 03/19/2018 at [facility]. FVC 90%. FEV1 89%. FEV1/FVC [...] She is followed by Dr. Posey at [facility] cardiology. She has diltiazem 30 mg to take as needed Had high-resolution CT scan of the chest at [facility] in late February. Results not yet available to me. Recent laboratory tests at [facility] including hemoglobin A1c 5.6, vitamin D, comprehensive metabolic panel, and ferritin 78. 11/14/2020 interval events: Had cardiac ablation for paroxysmal atrial fibrillation October 04, 2019 (PVE/PVI). She will be on Eliquis until January 03. 12 days after the procedure she presented to the emergency room at [facility] for a febrile episode upto 101.6 [...] echocardiogram was with Dr. Posey September 2019. Review of Systems: Constitutional: No fevers. She is completely vaccinated against COVID-19. HEENT: No eye pain or previously diagnosed inflammatory eye conditions. She has eye dryness. She uses artificial tears. No vision loss. No hearing loss. No tinnitus. No mouth sores. No dry mouth. No facial rash. Cardiovascular: No atrial fibrillation episodes since ablation. She is on apixaban Pulmonary: No dyspnea cough or wheezing Gastrointestinal: [...] in the knees and in the fingers. Of note is that recent CRP was 20. This was after ablation procedure however and with recent febrile episode of unclear etiology Current Outpatient Medications Medication Sig Dispense Refill [...] Capsule Take 2,000 Units by mouth. ??? TKTOTRLQNIYE-LYDL-SRBLK ACID ORAL Take by mouth. ??? levothyroxine (Synthroid) 50 mcg Tablet ??? Magnesium Oxide 250 mg magnesium Tablet Take by mouth. ??? aspirin 81 mg Tablet, Chewable Take 81 mg by mouth every 24 hours. ??? L-Methylfolate 15 mg Tablet Take 15 mg by mouth Daily. No current facility-administered medications for this visit. Allergies Allergen Reactions ??? Penicillins Anaphylaxis Tolerates cephalexin ??? Sulfa (Sulfonamide Antibiotics) Rash Physical Exam: BP 130/76 Pulse 65 Temp 36.8 ??C (98.2 ??F) (Temporal) Ht 175.3 cm (5' 9) Wt 82.6 kg (182 lb) SpO2 100% BMI 26.88 kg/m?? Telephone visit General appearance and movement: Alert. Nontoxic. No distress. Healthy appearing. Energetic. Gets out of chair easily without stiffness or pain. HEENT: Anicteric sclera. Clear conjunctiva. No facial rash. Heart: Regular rate and rhythm. No murmurs extra sounds or rubs. Lungs: Clear to auscultation. No rales rubs or wheezes. Skin: No rash. No sclerodactyly. No telangiectasias. No subcutaneous nodules. Vascular: 2+ pulses in radial arteries. Neurologic: Normal mental status. Speech fluent. Comprehension and language intact. Alert and oriented. Normal muscle bulk. No abnormal movements tremors or fasciculations. 5/5 strength in upper and lower extremities. Normal gait. Cranial nerves II through XII intact Musculoskeletal: Erect posture. Normal gait. Hands: No nail pitting or onycholysis. Normal nailfold capillary examination. No synovial swelling or tenderness in MCPs or PIPs. Neurovascularly intact. No thenar atrophy. No dactylitis. No triggering of flexor tendons. No tendon friction rubs. Wrists: No synovial swelling or tenderness. Normal flexion and extension. Elbows: No effusions or nodules. Full flexion extension pronation supination. Shoulders: Full range of motion flexion extension internal and external rotation. Labs: 11/13/2020: CBC with WBC 6.35. Hemoglobin 13.0. [...] negative. Anti-SSA antibody negative. Anti-Sexton antibody negative. Anti-ON SITE SOIL EVALUATOR antibody negative. Oryl-tsqdso-regxyzdd DNA antibody slightly positive at 38.3. Diagnostic [...] mmHg Assessment: 1. Undifferentiated connective tissue disease: She may be having some low-level smoldering inflammatory symptoms. Difficult to interpret recent elevated CRP given presentation to emergency room with febrile episode and after cardiac ablation procedure. We did talk about possibility using a short course of corticosteroid as a trial to determine if inflammatory symptoms diminish. We both agreed that it may be preferable to wait for complete healing after the procedure. ALAINA profiles as noted. Specific antibody anticentromere antibody positive. Borderline positive dgcf-eublvb-hwfbwrxi DNA. Transthoracic echocardiogram with pulmonary pressures in the moderately elevated range 40 to 45 mmHg. Repeat testing showed peak pulmonary artery pressure 36 mmHg. She has had a high-resolution CT scan testat [facility]. She will be faxing this to my [...] follow-up appointment at which time we will repeat CRP locally and consider short course of prednisone Plan: Plan repeat CRP. Consider course of corticosteroid for 5-7 days. Please note that this note was completed with the assistance of voice recognition software. As result unintentional advanced developer errors and/or typographical mistakes are possible. If you notice errors please bring them to my attention. If any area requires explanation or clarification please do not hesitate to contact me. 54 minutes total spent on this visit including precharting, review of laboratory, imaging data, andnotes from other providers, yigj-yc-brqy interaction, and documentation. documented in this encounter Plan of Treatment Upcoming Encounters Date Type Department Care Team (Late st Contact Info) Description 12/18/2023 3:00 PM EDT Appointment XRay at [address] [place] [phone] 12/18/2023 4:00 PM EDT Office [place] [address] Laurent Castanon MD [facility] [place] [address] documented as of this encounter Visit Diagnoses Diagnosis Undifferentiated connective tissue disease Unspecified diffuse connective tissue disease documented in this encounter
--- OUTSIDE RECORDS SUMMARY | 2023-12-03 02:05 | XMS_ITS | Encounter Summary ---
Author Organization [facility] Address [address] [place] [address] Care Team Providers Care Pastry Decorator Name Role Phone Jasmyne Poe MD Primary Care Provider + Reason for Visit * Reason Onset Date Comments Appointment Related 05/16/2023 Encounter Details Date Type Department Care Team (Late st Contact Info) Description 05/16/2023 Telephone [facility] Adult Primary Care - [address] [address] Jasmyne Poe MD [address] [place] [phone] Appointment Related Social History Tobacco Use [...] place to sleep or slept in a prison (including now)? No 05/15/2023 Interpersonal Safety Answer [...] encounter Miscellaneous Notes * Telephone Encounter - Ismael Hu - 05/16/2023 1436 EST LMOM. Called pt to remind them of tomorrows visit with Primary care per no show protocol. Detailed message left. documented in this encounter Plan of Treatment Upcoming Encounters Date Type Department Care Team (Late st Contact Info) Description 05/20/2024 14:45 EST Office Visit [facility] Adult Primary Care - [address] [phone] Jasmyne Poe MD [address] [place] [phone] documented as of this encounter Visit Diagnoses Not on filedocumented in this encounter Care Teams Pastry Decorator Relationship Specialty Start Date End Date Jasmyne Poe MD [address] [place] [phone] PCP - General 01/07/13 documented as of this encounter
--- OUTSIDE RECORDS SUMMARY | 2023-12-03 02:05 | XMS_ITS | Encounter Summary ---
Author Organization [facility] Address [facility] [place] [address] Care Team Providers Care Rivet Thrower Name Role Phone Unavailable Primary Care Provider Unavailabl e Encounter Details Date Type Department Care Team (Latest Contact Info) Description 04/03/2021 4:50 PM EST - 04/03/2021 11:59 PM EST Hospital Encounter XRay at [address] [place] [place] [address] Laurent Castanon MD [facility] [place] [address] Undifferentiated connective tissue disease Discharge Disposition: Home Social History Tobacco Use Types Packs/Day Years Used Date Smoking Tobacco: Never Smokeless Tobacco: Never Sex and Gender Information Value Date Recorded Sex Assigned at Not on file Gender Identity Not on file Sexual Orientation Not on file documented as of this encounter Medications at Time of Discharge Medication Sig Dispensed Refills Start Date End Date vit C/Zn gluc/herbal no.325 (ELDERBERRY ZINC VIT C MM) by Transmucosal route. melatonin 3 mg Tablet Take by mouth. cholecalciferol, Vitamin D3, 50 mcg (2,000 unit) Capsule Take 2,000 Units by mouth. 09/05/2014 CHMMDYPVECWA-GOHU-RIVW C ACID ORAL Take by mouth. 09/05/2014 levothyroxine (Synthroid) 50 mcg Tablet 05/02/2020 Magnesium Oxide 250 mg magnesium Tablet Take 500 mg by mouth. 03/04/2019 VITAMIN B COMPLEX ORAL Take 1 each by mouth Daily. 10/02/2022 dilTIAZem XR (Dilacor XR) 120 mg Capsule,Degradable Cnt Release Take 120 mg by mouth daily. 10/02/2022 dilTIAZem (Cardizem) 30 mg Tablet Take 60 mg by mouth Once daily as needed. 10/11/2019 10/02/2022 aspirin 81 mg Tablet, Chewable Take 81 mg by mouth every 24 hours. 09/29/2019 10/02/2022 L-Methylfolate 15 mg Tablet Take 15 mg by mouth Daily. 10/02/2022 documented as of this encounter Plan of Treatment Upcoming Encounters Date Type Department Care Team (Late st Contact Info) Description 12/18/2023 3:00 PM EDT Appointment XRay at [address] [place] [address] 12/18/2023 4:00 PM EDT Office Visit Orthopaedics at [facility] [place] [phone] Laurent Castanon MD [facility] [place] [address] documented as of this encounter Procedures Procedure Name Priority Date/Time Associated Diagnosis Comments XR FOOT MIN 3 VIEWS RIGHT Routine 04/03/2021 5:00 PM EST Undifferentiated connective tissue disease documented in this encounter Results * XR Foot Min [...] who have questions please contact the health childbirth and infant care teacher that requested your imaging first. ? Narrative [...] patients who have questions please contactthe health childbirth and infant care teacher that requested your imaging first. Laurent Castanon MD IMG DX ORDERABLES documented in this encounter Visit Diagnoses Diagnosis Undifferentiated connective tissue disease Unspecified diffuse connective tissue disease documented in this encounter
--- OUTSIDE RECORDS SUMMARY | 2023-12-03 02:05 | XMS_ITS | Encounter Summary ---
Author Organization [facility] Address [address] [place] [address] Care Team Providers Care Fruit Farmer Name Role Phone Jasmyne Poe MD Primary Care Provider + Reason for Visit * Reason Onset Date Comments Medications Refill 08/12/2023 Encounter Details Date Type Department Care Team (Late st Contact Info) Description 08/12/2023 Refill [facility] Adult Primary Care - [place] [address] [place] [address] Jasmyne Poe MD [address] [place] [phone] Medications Refill Social History Tobacco Use Types Packs/Day Years Used Date Smoking Tobacco: Never Smokeless Tobacco: Never Comments:a little in high sc hool Alcohol Use Standard Drinks/Week Comments Not Currently 0 (1 standard drink = 0.6 oz pur e alcohol) [facility] Utilities Answer Date Recorded In the past 12 months has [employer], gas, oil, or water company threatened to [...] slept in a retirement (including now)? No 05/19/2023 Interpersonal Safety Answer [...] No 10/03/2020 documented as of this encounter Ordered Prescriptions Prescription Sig Dispensed Refills Start Date End Da te levothyroxine (SYNTHROID) 50 mcg tabletIndications:Acquired hypothyroidism Take 1 Tablet by mouth daily. 90 Tablet 2 08/12/2023 documented in this encounter Miscellaneous Notes * Telephone Encounter - Sukhdeep Bradford RN - 08/12/2023 7732 EDT Requested Prescriptions Pending Prescriptions Disp Refills levothyroxine (SYNTHROID) 50 mcg tablet 90 Tablet 1 Sig: Take 1 Tablet by mouth daily. [address] Confirmed Pharmacy? No Patient out of medication? Unknown Last Refill Date: ? Refills left? (explain exceptions requiring early refill) No Recent Visits Date Type Provider Dept 05/19/23 Office Visit Jasmyne Poe MD [facility] Showing recent visits within past 540 days with a meds authorizing provider and meeting all other requirements Future Appointments No visits were found meeting these conditions. Showing future appointments within next 150 days with a meds authorizing provider and meeting all other requirements Future appointment: Already Scheduled SUKHDEEP BRADFORD RN 08/12/2023 15:13 documented in this encounter Plan of Treatment Upcoming Encounters Date Type Department Care Team (Late st Contact Info) Description 05/20/2024 14:45 EST Office Visit [facility] Adult Primary Care - [place] [address] [place] [address] Jasmyne Poe MD [address] [place] [phone] documented as of this encounter Visit Diagnoses Diagnosis Acquired hypothyroidism- Primary Unspecified hypothyroidism documented in this encounter Discontinued Medications Medication Sig Discontinue Reason Start Date End Da te levothyroxine (SYNTHROID) 50 mcg tabletIndications:Acquired hypothyroidism Take 1 Tablet by mouth daily. Reorder 02/06/2023 08/12/2023 documented as of this encounter Care Teams Fruit Farmer Relationship Specialty Start Date End Date Jasmyne Poe MD [address] [place] [phone] PCP - General 01/07/13 documented as of this encounter
--- OUTSIDE RECORDS SUMMARY | 2023-12-03 02:05 | XMS_ITS | Encounter Summary ---
Author Organization [facility] Address [address] [place] [address] Care Team Providers Care Manager Print Name Role Phone Jasmyne Poe MD Primary Care Provider + Reason for Visit * Reason Comments Annual Exam Encounter Details Date Type Department Care Team (Late st Contact Info) Description 05/19/2023 14:00 EST [facility] - [address] [phone] Jasmyne Poe MD [address] [place] [phone] Encounter for preventive health examination (Primary Dx); Acquired hypothyroidism; Depression screen; Anxiety; Borderline diabetes; Anxiety and depression; Mixed hyperlipidemia; RAJ (obstructive sleep apnea) Social History Tobacco Use Types Packs/Day Years Used Date Smoking Tobacco: Never Smokeless Tobacco: Never Comments:a little in high sc hool Alcohol Use Standard Drinks/Week Comments Not Currently 0 (1 standard drink = 0.6 oz pur e alcohol) [facility] Utilities Answer Date Recorded [...] place to sleep or slept in a longterm (including now)? No 05/19/2023 Interpersonal Safety Answer [...] Rate 20 05/19/2023 1415 EST Oxygen Saturation - - Inhaled Oxygen Concentration - - Weight 89.1 kg (196 lb 6.4 oz) 05/19/[address] Height 174 cm (5' 8.5) 05/19/2023 1415 EST Body Mass Index 29.42 05/19/2023 1415 EST documented in this encounter Functional Status Functional Status Response [...] No 10/03/2020 documented as of this encounter Patient Instructions * Patient Instructions* Jasmyne Poe MD - 05/19/2023 14:00 EST Schedule a mammogram documented in this encounter Progress Notes * Jasmyne Poe MD - 05/19/2023 1400 EST Female Well Adult Preventative Care Visit Patient ID: Kirsten Almaguer is an 58 y.o. female. Subjective: HISTORY OF PRESENT ILLNESS: Here for a preventive visit and for follow-up Patient profile: she is with three children. 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 She does not smoke or drink alcohol. She has been getting her 10,000 steps in most days. She eats healthy but admits she may just eat too much. She is three years out from menopause and feels that she is experiencing multiple symptoms due to menopause including joint pains, sleeping difficulty, and fatigue. She even attributes the new ringing in her ears to menopause. Joint pains are increased especially in her feet. She still sees a historian dramatic arts at [facility] for undifferentiated connective tissue disorder and OA. He gave her a short course of prednisone last year but she never took it. She has had one knee replaced. Feeling depressed. She has stress at work, with , and 21 year old son with a history of AML as a child who is having mental health issues. She is taking a half dose of the sretraline because afull dose makes her feel weird. Her would be willing to go to counseling with her and sheis willing to start counseling for herself. She feels her has been critical of her over theyears and she has always blamed herself but wants to break this pattern of self-blame. PHQ 9 is 12. She declines SI. She is able to function OK at work and at home. She is encouraged that her lab results were stable or improved despite a weight gain. Patient Active Problem List Diagnosis Osteoarthritis Allergy to penicillin Anxiety Acquired hypothyroidism Borderline diabetes Undifferentiated connective tissue disease (HCC-CMS) ([facility]) Mild aortic stenosis RAJ (obstructive sleep apnea) Paroxysmal atrial fibrillation (HCC-CMS) ([facility]) Mixed hyperlipidemia Past Medical History: Diagnosis Date A-fib (HCC-CMS) paroxysmal , currently on diltiazem Abnormal uterine bleeding 06/07/2019 Seeing HUMAN RESOURCES INTERN in [facility]: US and endometrial biopsy normal 10/2019: resolved Anxiety 2002 on zoloft in the past History of epidural anesthesia and spinal , w/o issue History of gestational diabetes resolved w/ diet and exercise Hypertension with episdes of anxiety in the past Hypothyroidism tx w/ meds Rotator cuff injury 01/19/2014 Right shoulder Sleep apnea tested , no treatment recommended Past Surgical History: Procedure Laterality Date ABLATION OF DYSRHYTHMIC FOCUS 09/2020 SECTION 1986 KNEE ARTHROSCOPY Right 2002 right knee PRE-MALIGNANT / BENIGN SKIN LESION EXCISION right upper back TOTAL KNEE ARTHROPLASTY Left 08/07/2021 done at [facility] Social History Tobacco Use Smoking status: Never Smokeless tobacco: Never Tobacco comments: a little in high school Vaping Use Vaping Use: Never used Substance Use Topics Alcohol use: Not Currently Drug use: No Family History Problem Relation Age of Onset Lung Cancer Mother 63 of lung cancer of 63 Alcohol Abuse Father cause of unknown , @ 58yo No Known Brother Diabetes Maternal Grandmother Hypertension Maternal Grandmother Diabetes Maternal Uncle Heart Disease Maternal Grandfather Lymphoma Maternal Grandfather Hodgkin's lymphoma Heart Surgery Other 50 grandmother Heart Attack Other 60 grandfather- [place] Leukemia Son AML Allergies Allergen Reactions Penicillins Anaphylaxis Tolerates cephalexin Sulfa (Sulfonamide Antibiotics) Rash Current Outpatient Medications Medication cholecalciferol, Vitamin D3, 2,000 unit tablet dilTIAZem (CARDIZEM) 30 mg tablet levothyroxine (SYNTHROID) 50 mcg tablet Magnesium 250 mg tablet melatonin 3 mg tablet Multivitamins with Minerals tablet tablet sertraline (ZOLOFT) 50 mg tablet vit C/Zn gluc/herbal no.325 (ELDERBERRY ZINC VIT C MM) No current facility-administered medications for this visit. Review of Systems Constitutional: Positive for diaphoresis (hot flashes). Negative for chills and fever. Respiratory: Negative for cough and shortness of breath. Cardiovascular: Positive for palpitations (occasional). Negative for chest pain. Gastrointestinal: Negative for abdominal pain, blood in stool, diarrhea, heartburn, melena and nausea. Genitourinary: Positive for urgency (sometimes incontinence). Negative for dysuria and hematuria. Musculoskeletal: Positive for joint pain (multiple joints, mark feet, and muscles) and myalgias. Neurological: Negative for dizziness and headaches. Psychiatric/Behavioral: Negative for depression. Objective: BP 136/67 (BP Cuff Location: Right arm, BP Patient Position: Sitting, BP Cuff Sizes: Adult, regular) Pulse 55 Temp 36.7 ??C (98 ??F) (Temporal) Resp 20 Ht 174 cm (68.5) Wt 89.1 kg (196 lb 6.4 oz) BMI 29.42 kg/m?? Body mass index is 29.42 kg/m??. Wt Readings from Last 3 Encounters: 05/19/23 89.1 kg (196 lb 6.4 oz) 03/20/22 83.9 kg (185 lb) 10/24/21 82 kg (180 lb 12.8 oz) Physical Exam General: well-developed, well-nourished woman HEENT: oral mucosa and pharynx are normal and without lesions. Ear canals are clear of cerumen and debris and tympanic membranes are normal in appearance. Sclerae are clear and non-icteric. Neck: no lymphadenopathy or thyromegaly Breasts: exam deferred. She has an appointment with her HUMAN RESOURCES INTERN later this week. No axillary notes palpable. Lungs: clear in all lung negrete Cardiac: regular without murmur or gallop Abdomen: soft, non-tender, no masses. No hepatomegaly. : exam deferred. Extremities: no cyanosis or edema Skin: no rashes Labs were drawn at [facility] on 05/16/23 Lipids: TC 210 Trig 89 HDL 51 LDL 142 TSH 2.05 Ferritin 128 CMP normal other than elevated glucose of 112 Hemoglobin A1C 5.7 CBC normal Vitamin D ordered but not included in the fax Assessment: 58 year old woman here for a preventive visit and follow-up of problems listed below She had the flu vaccine at work and declines COVID She would like to postpone the shingles vaccine Immunization History Administered Date(s) Administered Covid-19 Ad26 Vaccine (Tractive COVID-19) PF 0.5 ml IM (18 yrs+) 12/08/2020 Historical Influenza Vaccine, Unspecified 02/16/2018, 03/05/2023 Influenza Vaccine Quad (AFLURIA) PF 0.5 ml IM (3 yrs+) 01/21/2014, 02/15/2015, 01/27/2017, 02/25/2018, 02/09/2019, 02/16/2020 Influenza Vaccine Recomb Quad RIV4 (FLUBLOK) PRSRV/ABX Free 0.5 ml IM (18 yrs+) 02/15/2019 MMR Vaccine SQ 01/03/2009 PPD Skin Test Placement 12/20/2008, 01/03/2009 Tdap Vaccine =>7YO IM 12/20/2008, 05/25/2018 Breast cancer screening: she had a normal mammogram in 11/2021 and is due again this coming year. Cervical cancer screening: Her last Pap smear was February 2019: normal cytology/negative HPV. She has history of ASGUS with negative HPV in 2015. She is due for a PAP and has an appointment with herGYN later this week. Colon cancer screening: she had a colonoscopy with diverticulosis only in 03/2022 at [facility]. Due again in ten years. Osteoporosis screening/prevention: she is taking a vitamin D supplement and vitamin D level normal in the past. Given HCP form Depression and anxiety: she is taking sertraline 25 mg daily and has not tolerated a higher dose. Ioffered referral to the [facility] for help finding a counselor both for her and for marriage counseling but she thinks she will be able to find one on her own. No medication change made today but transition to duloxetine from sertraline may be considered due to the possible effects on musculoskeletal pain. Addendum: she was started on bupropion by her HUMAN RESOURCES INTERN 05/2023 Hypothyroidism: TSH is normal. She will be due for a refill in July. Menopausal: she will discuss HRT with her HUMAN RESOURCES INTERN and also the urinary incontinence. Borderline diabetes: HA1C almost normal. PAF: s/p ablation in 2020. One episode of palpitations over the past year but has not recurred. Mixed hyperlipidemia: isolated borderline elevated LDL. Statin not indicated. She will work on weight loss. RAJ: mild RAJ only which she treated with weight loss in the past. She is using a dental device butis sounds like this for bruxism and not a mandibular device. She is going to work on weight loss again. She does report some symptoms of RLS. Ferritin level normal. We did not discuss additional treatment for this. Plan: As above Follow-up in one year or as needed. Kirsten was seen today for annual exam. Diagnoses and all orders for this visit: Acquired hypothyroidism No follow-ups on file. References: USPTF Level A & B Recommendations List USPTF Adult Recommendations USPTF Breast Cancer Screening USPTF Cervical Cancer Screening USPTF Colorectal Cancer Screening CDC Adult Immunizations 2010 CDC 7-18 Years Immunizations 2011 AAFP Clinical Recommendations documented in this encounter Plan of Treatment Upcoming Encounters Date Type Department Care Team (Late st Contact Info) Description 05/20/2024 14:45 EST [facility] - [address] [address] Jasmyne Poe MD [address] [place] [phone] documented as of this encounter Visit Diagnoses Diagnosis Encounter for preventive health examination- Primary Routine general medical examination at a health care facility Acquired hypothyroidism Unspecified hypothyroidism Depression screen Screening for depression Anxiety Anxiety state, unspecified Borderline diabetes Other abnormal glucose Anxiety and depression Dysthymic disorder Mixed hyperlipidemia RAJ (obstructive sleep apnea) Obstructive sleep apnea (adult) (pediatric) documented in this encounter Discontinued Medications Medication Sig Discontinue Reason Start Date End Da te melatonin 3 mg tablet Take by mouth as needed. Patient Stopped Taking 05/19/2023 documented as of this encounter Care Teams Manager Print Relationship Specialty Start Date End Date Jasmyne Poe MD [address] [place] [phone] PCP - General 01/07/13 documented as of this encounter
--- OUTSIDE RECORDS SUMMARY | 2023-12-03 02:06 | XMS_ITS | Encounter Summary ---
Author Organization [facility] Address [address] [place] [address] Care Team Providers Care Calibration Engineer Name Role Phone Jasmyne Poe MD Primary Care Provider + Reason for Visit * Reason Onset Date Comments Atrial Fibrillation 11/11/2022 Encounter Details Date Type Department Care Team (Late st Contact Info) Description 11/11/2022 Telephone [facility] Cardiology - [address] [place] [address] Riley Wolf MD [address] [facility], [address] [place] [address] Atrial Fibrillation Social History Tobacco Use Types Packs/Day Years [...] asked 09/26/2020 Overall Financial Resource Strain (CARDIA) Binevenidoe r Date Recorded How hard is it [...] place to sleep or slept in a fdc (including now)? No 10/24/2021 Interpersonal Safety Answer [...] Dispensed Refills Start Date End Da te dilTIAZem (CARDIZEM) 30 mg tablet Take 1 Tablet by mouth 4 times daily as needed (for Afib). 30 Tablet 1 11/15/2022 documented in this encounter Miscellaneous Notes * Telephone Encounter - Arabella Alvarez RN - 11/14/[address] Wolf stated in the past pt had side effects from diltiazem. He is willing to give her a 30 mgshort acting diltiazem prescription to be taken up to 4 times daily as needed for afib episodes. Motivational Speaker left voicemail and sent [employer]* message with information. * Telephone Encounter - Arabella Alvarez RN - 11/12/2022 1616 EDT Motivational Speaker called and spoke with pt regarding an afib episode she had yesterday. Pt stated she was in Afib from 6:30-12 yesterday with HR 90-120s with a feeling of needing to cough and palpitations felt in chest. Pt stated she did not experience any other symptoms. Pt wonders if she should have a pill in pocket approach as discussed with neelam at last appt in 03/2021. Motivational Speaker informed pt will route to provider and scheduling to get on provider's schedule as well. Pt stated she understood. No barriers to learning identified. * Telephone Encounter - Antonio Biggs - 11/11/2022 [address] Wolf last seen Mar 2021 Pt states she is back in afibb and would like a call to discuss documented in this encounter Plan of Treatment Upcoming Encounters Date Type Department Care Team (Late st Contact Info) Description 05/20/2024 14:45 EST Office Visit [facility] Adult Primary Care - [address] [address] Jasmyne Poe MD [address] [place] [phone] documented as of this encounter Visit Diagnoses Not on filedocumented in this encounter Care Teams Calibration Engineer Relationship Specialty Start Date End Date Jasmyne Poe MD [address] [place] [phone] PCP - General 01/07/13 documented as of this encounter
--- OUTSIDE RECORDS SUMMARY | 2023-12-03 02:06 | XMS_ITS | Encounter Summary ---
Author Organization [facility] Address [address] [place] [address] Care Team Providers Care Vocational Horticulture Instructor Name Role Phone Jasmyne Poe MD Primary Care Provider + Reason for Visit * Reason Onset Date Comments Medications Refill 02/06/2023 Encounter Details Date Type Department Care Team (Late st Contact Info) Description 02/06/2023 Refill [facility] Adult Primary Care - [place] [address] [place] [address] Jasmyne Poe MD [address] [place] [phone] Medications Refill Social History Tobacco Use [...] asked 09/26/2020 Overall Financial Resource Strain (CARDIA) Bienvenidoe r Date Recorded How hard is it [...] place to sleep or slept in a senior care (including now)? No 10/24/2021 Interpersonal Safety Answer [...] Tablet by mouth daily. 90 Tablet 1 02/06/2023 08/12/2023 documented in this encounter Miscellaneous Notes * Telephone Encounter - Lani Johns RN - 02/06/2023 9615 EDT Requested Prescriptions Pending Prescriptions Disp Refills ??? levothyroxine (SYNTHROID) 50 mcg tablet 90 Tablet 0 Sig: Take 1 Tablet by mouth daily. [address] Confirmed Pharmacy? Yes Patient out of medication? Unknown Last Refill Date: 10/28/22 Refills left? (explain exceptions requiring early refill) No Recent Visits Date Type Provider Dept 10/24/21 Office Visit Jasmyne Poe MD [facility] Showing recent visits within past 540 days with a meds authorizing provider and meeting all other requirements Future Appointments Date Type Provider Dept 05/19/23 Appointment Jasmyne Poe MD [facility] Showing future appointments within next 150 days with a meds authorizing provider and meeting all other requirements Future appointment: Already Scheduled LANI JOHNS RN 02/06/2023 8:15 * Telephone Encounter - Lani Johns RN - 02/06/2023 0815 EDTFrom: Kirsten Almaguer To: Office of Jasmyne Poe MD Sent: 02/06/2023 8:04 EDT Subject: Medication Renewal Request Refills have been requested for the following medications: levothyroxine (SYNTHROID) 50 mcg tablet [Jasmyne Poe] Preferred pharmacy: [address] documented in this encounter Plan of Treatment Upcoming Encounters Date Type Department Care Team (Late st Contact Info) Description 05/20/2024 14:45 EST Office Visit [facility] Adult Primary Care - [place] [address] [place], [place] [phone] Jasmyne Poe MD [address] [place] [phone] documented as of this encounter Visit Diagnoses Diagnosis Acquired hypothyroidism- Primary Unspecified hypothyroidism documented in this encounter Discontinued Medications Medication Sig Discontinue Reason Start Date End Da te levothyroxine (SYNTHROID) 50 mcg tabletIndications:Acquired hypothyroidism Take 1 Tablet by mouth daily. Reorder 10/28/2022 02/06/2023 documented as of this encounter Care Teams Vocational Horticulture Instructor Relationship Specialty Start Date End Date Jasmyne Poe MD [address] [place] [phone] PCP - General 01/07/13 documented as of this encounter
--- OUTSIDE RECORDS SUMMARY | 2023-12-03 02:06 | XMS_ITS | Encounter Summary ---
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, including canthus Clark Thompson, OD [address] [place] [address] Florencia Greene MD [address] [place] [phone] Referral ID Status Reason Start Date Expiration Date Visits Requested Visits Authorized [id number] Receiving Office to Obtain Authorization 1 1 Encounter Details Date Type Department Care Team (Late st Contact Info) Description 01/26/2021 14:00 EDT Office Visit [facility] Ophthalmology - [address] [phone] Florencia Greene MD [address] [place] [phone] Social History Tobacco Use Types Packs/Day Years [...] drinks on one occasion? Not asked 09/26/2020 PHQ-2 Answer Date Recorded PHQ-2 SUBTOTAL 0 10/03/2020 Hunger Vital Sign Answer Date Recorded Worried About Running Out of Food in the Last Ye ar Never true 05/15/2019 Ran Out of Food in the Last Year Never true 05/15/2019 Interpersonal Safety Answer Date Record ed Physically Hurt Never 05/21/2020 Verbally Threaten Never 05/21/2020 Sex and Gender Information Value Date Recorded [...] No 10/03/2020 documented as of this encounter Progress Notes * Florencia Greene MD - 01/26/2021 1400 EDT Chief Complaint Patient presents with ??? Eye Problem Comments NPV - right lower eyelid lesion. Patients notes it has been there for as long as she can remember. Has only gotten slightly bigger recently. No pain. Eyelids never stick together. Sees Derm for otherskin lesions. HPI The patient is a 55 y.o. female referred by Dr. Thompson for evaluation of RLL lesion. Dr. Thompson has been watching it for the 4 past years and he noted some change since last visit. No history of melanoma. fhx of melanoma. ROS Constitutional: NL ENT/Mouth NL Cardiovascular: (cardiac ablasion) Respiratory: NL Gastrointestinal: NL Genitourinary: NL Musculoskeletal: Joint Pain Integumentary: NL Neurologic: NL Psychiatric: Depression (anxiety) Endocrine: Thyroid problems Hematologic: NL Immunologic: Drug Allergy Stunner And Shackler: Exposures: None Other: Attestation: Allergies include: Penicillins and Sulfa (sulfonamide antibiotics) Patient Active Problem List Diagnosis ??? Osteoarthritis ??? Allergy to penicillin ??? Anxiety ??? Acquired hypothyroidism ??? PAF (paroxysmal atrial fibrillation) (HCC-CMS) ([facility]) ??? Myalgia ??? Abnormal uterine bleeding ??? Undifferentiated connective tissue disease (HCC-CMS) ([facility]) ??? Mild aortic stenosis ??? RAJ (obstructive sleep apnea) ??? Paroxysmal atrial fibrillation (HCC-CMS) ([facility]) Outpatient Medications Marked as Taking for the 01/26/21 encounter (Office Visit) with Florencia Greene MD Medication Sig ??? apixaban (ELIQUIS) 5 mg tablet Take 1 Tablet by mouth 2 times daily. Plan is for you to start eliquis after your cardiac ablation. ??? B Complex Vitamins (VITAMIN B COMPLEX) tablet Take 1 Each by mouth daily. ??? cholecalciferol, Vitamin D3, 2,000 unit tablet Take by mouth. ??? levothyroxine (SYNTHROID) 50 mcg tablet Take 1 Tab by mouth daily. ??? Magnesium 250 mg tablet Take 1 Each by mouth daily. ??? melatonin 3 mg tablet Take by mouth at bedtime. ? ? MULTIVIT &MINERALS/FERROUS FUM (MULTI VITAMIN ORAL) Take by mouth. Base Eye Exam Visual Acuity (Snellen - Linear) Right Left Dist cc 20/20 -1 20/20 -1 Correction: Glasses Pupils Pupils Light Shape APD Right PERRL 4 Round None Left PERRL 4 Round None Extraocular Movement Right Left Full, Ortho Full, Ortho Neuro/Psych Oriented x3: Yes Mood/Affect: Normal Slit Lamp and Fundus Exam External Exam Right Left External Normal Normal Slit Lamp Exam Right Left Lids/Lashes LL lesion, non pigmented lesion LL measures 3.5v x 5.5 h no maderosis Normal Conjunctiva/Sclera White and quiet White and quiet Cornea Clear Clear Anterior Chamber Deep and quiet Deep and quiet Iris Normal Normal DIAGNOSTIC TESTS: IMPRESSION & PLAN: Encounter Diagnosis Name Primary? Eyelid lesion Yes 1. 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 Discussed that nevi do carry a small risk of malignant potential and since this has reportedly increased in size, biopsy would be reasonable. Observation would be the alternative. Discussed possibility of need for additional surgery depending on the pathology. She would like to proceed. I have reviewed the patient's past medical, family, social and surgical history. I have also reviewed the patient's medications, allergies, and problem list. I performed my own HPI and have reviewed the [facility]'s ROS as well. I personally completed this exam myself. Florencia Greene MD I am scribing for Florencia Greene MD, while she is personally performing the service. APOLLO Riddle, 01/26/2021 16:54 The patient was instructed to call our office or go to emergency room if worse vision, worse symptoms, or new/other concerns arise. documented in this encounter Plan of Treatment Upcoming Encounters Date Type Department Care Team (Late st Contact Info) Description 05/20/2024 14:45 EST Office Visit [facility] Adult Primary Care - [address] [address] Jasmyne Poe MD [address] [place] [phone] documented as of this encounter Visit Diagnoses Diagnosis Eyelid lesion- Primary Unspecified disorder of eyelid documented in this encounter Eye Exam Visual Acuity (Snellen - Linear) Right eye Left eye Dist cc 20/20 -1 20/20 -1 Correction: Glasses Pupils Pupils Light Shape APD Right eye PERRL 4 Round None Left eye PERRL 4 Round None Extraocular Movement Right eye Left eye Full, Ortho Full, Ortho Neuro/Psych Oriented x3: Yes Mood/Affect: Normal External Exam Right eye Left eye External Normal Normal Slit Lamp Exam Right eye Left eye Lids/Lashes LL lesion, non pigme nted lesion LL measures 3.5v x 5.5 h no maderosis Normal Conjunctiva/Sclera White and quiet White and kathy et Cornea Clear Clear Anterior Chamber Deep and quiet Deep and quiet Iris Normal Normal Care Teams Painter Assistant Relationship Specialty Start Date End Date Jasmyne Poe MD [address] [place] [phone] PCP - General 01/07/13 documented as of this encounter
--- OUTSIDE RECORDS SUMMARY | 2023-12-03 02:06 | XMS_ITS | Encounter Summary ---
Author Organization [facility] Address [address] [place] [address] Care Team Providers Care Manager Nuclear Name Role Phone Jasmyne Poe MD Primary Care Provider + Reason for Visit * Reason Onset Date Comments Medications Refill 01/09/2022 Encounter Details Date Type Department Care Team (Late st Contact Info) Description 01/09/2022 Refill [facility] Adult Primary Care - [place] [address] [place] [address] Jasmyne Poe MD [address] [place] [phone] Medications Refill Social History Tobacco Use [...] [place] [facility] (including now)? No 10/24/2021 Interpersonal Safety Answer [...] 1 Tablet by mouth daily. 90 Tablet 01/09/2022 04/17/2022 documented in this encounter Miscellaneous Notes * Telephone Encounter - Lani Johns RN - 01/09/2022 0924 EDT Requested Prescriptions Pending Prescriptions Disp Refills ??? levothyroxine (SYNTHROID) 50 mcg tablet 90 Tablet 0 Sig: Take 1 Tablet by mouth daily. [address] [facility] [id number] Last Refill Date: 09/25/21 Last Visit Date with Provider: 10/24/21 Next Non-Acute Visit Date Scheduled with Care Team: Yes. LANI JOHNS RN 01/09/2022 9:24 * Telephone Encounter - Lani Johns RN - 01/09/2022 0921 EDTFrom: Kirsten Almaguer To: Office of Jasmyne Poe MD Sent: 01/09/2022 8:36 EDT Subject: Medication Renewal Request Refills have been requested for the following medications: levothyroxine (SYNTHROID) 50 mcg tablet [Jasmyne Poe MD] Preferred pharmacy: [address] documented in this encounter Plan of Treatment Upcoming Encounters Date Type Department Care Team (Late st Contact Info) Description 05/20/2024 14:45 EST Office Visit [facility] Adult Primary [facility] - [place] [address] [place], [place] [phone] Jasmyne Poe MD [address] [place] [phone] documented as of this encounter Visit Diagnoses Diagnosis Acquired hypothyroidism- Primary Unspecified hypothyroidism documented in this encounter Discontinued Medications Medication Sig Discontinue Reason Start Date End Da te levothyroxine (SYNTHROID) 50 mcg tabletIndications:Acquired hypothyroidism Take 1 Tablet by mouth daily. Reorder 09/25/2021 01/09/2022 documented as of this encounter Care Teams Manager Nuclear Relationship Specialty Start Date End Date Jasmyne Poe MD [address] [place] [phone] PCP - General 01/07/13 documented as of this encounter
--- OUTSIDE RECORDS SUMMARY | 2023-12-03 02:06 | XMS_ITS | Encounter Summary ---
Author Organization [facility] Address [address] [place] [address] Care Team Providers Care Candy Bar Attendant Name Role Phone Jasmyne Poe MD Primary Care Provider + Reason for Visit * Reason Comments Procedure Encounter Details Date Type Department Care Team (Late st Contact Info) Description 03/06/2021 15:15 EST Office Visit [facility] Ophthalmology - [facility] [address] [place], [place] [phone] Florencia Greene MD [address] [facility], [address] [place] [phone] Social History Tobacco Use Types Packs/Day [...] Sign Reading Time Taken Comments Blood Pressure 137/84 03/06/2021 1513 EST Pulse 69 03/06/2021 1513 EST Temperature - - Respiratory Rate - - Oxygen Saturation 100% 03/06/2021 1513 EST Inhaled Oxygen Concentration - - Weight - - Height - - Body Mass Index - - documented in this encounter Functional Status Functional [...] Dispensed Refills Start Date End Da te erythromycin (ROMYCIN) 5 mg/gram (0.5 %) ophthalmic ointment Apply to right lower eyelid 3 times daily for 1 week 3.5 g 03/06/2021 10/24/2021 documented in this encounter Progress Notes * Florencia Greene MD - 03/06/2021 1515 EST See procedure note documented in this encounter Plan of Treatment Upcoming Encounters Date Type Department Care Team (Late st Contact Info) Description 05/20/2024 14:45 EST Office Visit [facility] Adult Primary Care - [place] [address] [place] [address] Jasmyne Poe MD [address] [place] [phone] documented as of this encounter Procedures Procedure Name Priority Date/Time Associated Diagnosis Comments EXCISION OF LESION, EYELID - OD - RIGHT EYE Routine 03/06/2021 15:38 EST Eyelid lesion SURGICAL PATHOLOGY Routine 03/06/2021 15 :36 EST Eyelid lesion documented in this encounter Results * EXCISION OF LESION, EYELID - OD - RIGHT EYE (03/06/2021 15:38 EST) Narrative [facility] POINT [facility] CARE - 03/06/2021 15:38 EST Title of procedure: Eyelid lesion removal, right lower eyelid Pre-operative diagnosis: eyelid lesion, right lower eyelid Post-operative diagnosis: eyelid lesion, right lower eyelid Surgeon: Florencia Greene MD Prep: betadine Anesthesia: Local injection of 2% lidocaine with 1:100,000 epinephrine Specimen: right lower eyelid lesion submitted to pathology for permanent section Narrative: Informed consent obtained prior to procedure. ??Procedure site identified and marked. Time out was held. ??Patient was positioned. ??Local anesthetic was injected at operative site. ??The lesion was shaved from the eyelid margin with a number 15 blade. ??Maxitrol ointment was applied. ??The patient tolerated the procedure well without complication. Patient was instructed to use erythromycin 3 times daily for 7 days and will call pathology results. ??Return precautions were discussed. Florencia Greene MD OPHTH CLINIC PROCEDU RES [facility] POINT OF CARE * SURGICAL PATHOLOGY (03/06/2021 15:36 EST) Note to Patient The following pathology results have been interpreted by your pathologist and may be available to you before your health provider has had the opportunity to review them. Please allow time for your provider to receive these results and explore management options, if applicable. 03/07/2021 10:52 [facility] Final Diagnosis A. SKIN AND CONJUNCTIVA OF EYELID, RIGHT LOWER, SHAVE BIOPSY: - Melanocytic nevus, intradermal type. 03/07/2021 10:52 [facility] Attestation By the signature below, the attending physician certifies that they have 1) personally conducted a gross and/or microscopic examination of the described specimen(s), and/or personally interpreted the results of laboratory testing of the described specimen(s), and 2) personally rendered or confirmed the above diagnosis. 03/07/2021 10:52 [facility] at 1052 Microscopic Description Sections are of a papule with mild epidermal hyperplasia and hyperkeratosis. There is a proliferation of melanocytes within the dermis. The proliferation consists of nests, cords, and strands that diminish in size with descent into the dermis. The melanocytes are slightly enlarged but generally have round-oval nuclei and a moderate amount of cytoplasm. The melanocytes show claim service representative maturation. 03/07/2021 10:52 [facility] Clinical History Right lower eyelid lesion; clinical diagnosis code: H02.9 03/07/2021 10:52 [facility] Gross Description A. Received in formalin labelled with proper patient identification (initials G, F) and right lower eyelid is an unoriented portion of barker-white skin measuring 0.5 x 0.4 x 0.2 cm. Inked, trisected and submitted entirely in A1. MOSHE BYERS(ASCP) 03/06/2021 18:04 03/07/2021 10:52 [facility] Performing Lab [facility] 03/07/2021 10:52 [facility] Scanned Images 03/07/2021 10:52 [facility] Tissue TISSUE SPECIMEN FROM SKIN / Unknown Collection, Other / Unknown 03/06/2021 15:36 EST 03/06/2021 16:28 EST Florencia Greene MD PATHOLOGY ORDERABLES [facility] [address] [place] [phone] documented in this encounter Visit Diagnoses Diagnosis Eyelid lesion- Primary Unspecified disorder of eyelid documented in this encounter Care Teams Candy Bar Attendant Relationship Specialty Start Date End Date Jasmyne Poe MD [address] [place] [phone] PCP - General 01/07/13 documented as of this encounter
--- OUTSIDE RECORDS SUMMARY | 2023-12-03 02:06 | XMS_ITS | Encounter Summary ---
Author Organization [facility] Address [address] [place] [address] Care Team Providers Care Certifed Refrigeration Operator Name Role Phone Jasmyne Poe MD Primary Care Provider + Reason for Visit * Reason Onset Date Comments Appointment Related 10/05/2021 Encounter Details Date Type Department Care Team (Late st Contact Info) Description 10/05/2021 Telephone [facility] Adult Primary Care - [address] [address] Jasmyne Poe MD [address] [place] [phone] Appointment Related Social History Tobacco Use [...] * Telephone Encounter - Angelica Pat - 10/05/2021 1151 EDT Confirmed upcoming appointment with patient on 10/24/2021 at 15:[address] Poe. Asked patient tohave fasting labs done prior to the appointment. Please fast for at least 8 hours. You can continueto take your medications, drink plenty of water, and you may have black coffee with no cream or sugar. Our lab in [place] is currently closed. You're able to schedule by appointment at [facility] ([facility]) by calling [phone] between the hours of 8:00 a.m. and 4:30 p.m.. Walk in sites are: [facility] open M-F 7:00 a.m.- 6:00 p.m., Sat and Sun 7:00 a.m. -1:00 p.m.. Or [facility] at [facility] only M-F 7:00 a.m.- 4:00 p.m. documented in this encounter Plan of Treatment Upcoming Encounters Date Type Department Care Team (Late st Contact Info) Description 05/20/2024 14:45 EST Office Visit [facility] Adult Primary Care [address] [phone] Jasmyne Poe MD [address] [place] [phone] documented as of this encounter Visit Diagnoses Not on filedocumented in this encounter Care Teams Certifed Refrigeration Operator Relationship Specialty Start Date End Date Jasmyne Poe MD [address] [place] [phone] PCP - General 01/07/13 documented as of this encounter
--- OUTSIDE RECORDS SUMMARY | 2023-12-03 02:06 | XMS_ITS | Encounter Summary ---
Author Organization [facility] Address [address] [place] [address] Care Team Providers Care Pig Machine Operator Name Role Phone Jasmyne Poe MD Primary Care Provider + Reason for Visit * Reason Onset Date Comments Appointment Related 01/11/2022 Encounter Details Date Type Department Care Team (Late st Contact Info) Description 01/11/2022 Telephone [facility] Adult Primary Care - [address] [address] Jasmyne Poe MD [address] [place] [phone] Appointment Related Social History Tobacco Use [...] place to sleep or slept in a intermediate (including now)? No 10/24/2021 Interpersonal Safety Answer [...] * Telephone Encounter - Angelica Pat - 01/11/2022 1036 EDT Confirmed upcoming appointment with patient on 01/30/2022 at 4:[address] Poe. Asked patient to have fasting labs done prior to the appointment. Please fast for at least 8 hours. You can continue to take your medications, drink plenty of water, and you may have black coffee with no cream orsugar. Lab orders faxed to [facility], fax #[phone], on 01/11/2022 (LipidProfile, Hemo A1C, TSH, CMP, Hep. C). documented in this encounter Plan of Treatment Upcoming Encounters Date Type Department Care Team (Late st Contact Info) Description 05/20/2024 14:45 EST Office Visit [facility] Adult Primary Care - [address] [phone] Jasmyne Poe MD [address] [place] [phone] documented as of this encounter Visit Diagnoses Not on filedocumented in this encounter Care Teams Pig Machine Operator Relationship Specialty Start Date End Date Jasmyne Poe MD [address] [place] [phone] PCP - General 01/07/13 documented as of this encounter
--- OUTSIDE RECORDS SUMMARY | 2023-12-03 02:06 | XMS_ITS | Encounter Summary ---
Author Organization [facility] Address [address] [place] [address] Care Team Providers Care Military Personnel Specialist Name Role Phone Jasmyne Poe MD Primary Care Provider + Reason for Referral * Radiology Services (Routine) - Closed Specialty Diagnoses / Procedures Referred By Contromeo t Referred To Contact Diagnoses Portal hypertension (HCC-CMS) Procedures US HEPATOPORTAL VEIN DUPLEX US ABDOMEN LIMITED Jasmyne Poe MD [address] [place] [phone] Referral ID Status Reason Start Date Expiration Date Visits Re quested Visits Authorized [id number] Closed 10/19/2020 1 1 Reason for Visit * Reason Onset Date Comments Post-ED Follow Up 10/18/2020 Encounter Details Date Type Department Care Team (Late st Contact Info) Description 10/18/2020 Telephone [facility] Adult Primary Care - [address] [address] Cassie Bradford RN Post-ED Follow Up Social History Tobacco Use Types Packs/Day Years [...] 15:13 EST Sexual Orientation Not on file COVID-19 Exposure Response Date Recorded In the last month, have you been in contact with someone who was confirmed or suspected to have Coronavirus / COVID-19? No / Unsure 10/15/2020 22:00 EDT documented as of this encounter Functional Status [...] encounter Miscellaneous Notes * Telephone Encounter - Will Marj - 10/20/2020 1036 EDT Printed requisition for US and called her to ask if fax number for her labs was the number to send this order to and she said it was. Faxed order to [phone]. She will call after she has it done to schedule video f/u Marj Solis 10/20/2020 10:38 * Telephone Encounter - Marj Solis - 10/19/2020 1353 EDT Called her to let her know your plan. She would like to have it done at [facility] and will schedule an video visit to discuss results after it is scheduled. * Telephone Encounter - Jasmyne Poe MD - 10/19/2020 1241 EDT I'm ordering an ultrasound of the liver to further evaluate for portal hypertension. I recommend a tele-video appointment to discuss results. * Telephone Encounter - Marj Solis - 10/19/2020 1036 EDT We see you were in the Emergency Department for fever s/p ablation on 10/16. How are you feeling/symptoms improving? Yes Do you have any questions? No: Not related to visit but would like to discuss CT results, especially dilated splenic vein and thyoid nodule. Can we schedule a follow up visit? No: No * Telephone Encounter - Marj Solis - 10/19/2020 0933 EDT Called to let her know I was checking in after her ED visit. Asked her if she was still running a fever or feeling better and if she would call back to let us know. Marj Solis 10/19/2020 9:34 * Telephone Encounter - Cassie Bradford RN - 10/18/2020 5587 EDT the patient was seen in the emergency room on 10/16 for: Kirsten Almaguer is a 55 y.o. female with PMH including paroxysmal atrial flutter and paroxysmal atrial fbrillation who presents to the ED for a medical evaluation s/p an ablation on 10/03. The patient states that since her ablation she has been having some occasional palpitations but no atrial fibrillation. The patient notes that yesterday she was feeling fatigued and run down so she took her temperature which showed 101 degrees Farenheit. After getting her temperature the patient called her Director Of Operations Support who referred her to the ED Data Interpretation ?? An EKG was obtained and independently interpreted: Normal sinus rhythm, normal intervals. Normal axis, isolated T wave inversion in V3. No ST segment changes. No significant changes from prior EKG ?? Imaging obtained was reviewed and independently interpreted: ?? The patient had a chest X-Ray which was significant for normal AP chest x-ray. Patient had X-Ray that was obtained, reviewed, and interpreted by myself along with a radiologist. Please see radiology report for further details. ?? The patient had a chest angiogram CT which was significant for: no evidence of a transesophageal fistula, no extension of esophageal contrast into the mediastinum and oral contrast CT, no extravasation of left atrial contrast on CT angiogram, mild left atrial enlargement consistent with atrial fibrillation, dilation of the splenic vein up to 14 mm, which could suggest portal venous hypertension. Patient had CT that was obtained, reviewed, and interpreted by myself along with a radiologist. Please see radiology report for further details. ?? Laboratory results independently reviewed, significant for: CRP elevated, otherwise unremarkable Is a care and concern call needed? documented in this encounter Plan of Treatment Upcoming Encounters Date Type Department Care Team (Late st Contact Info) Description 05/20/2024 14:45 EST Office Visit [facility] Adult Primary Care - [address] [address] Jasmyne Poe MD [address] [place] [phone] documented as of this encounter Results * US HEPATOPORTAL VEIN DUPLEX (11/15/2020 15:08 EDT) Anatomical Region Laterality Modality Vascular Ultrasound 11/15/2020 17:0 6 EDT Impressions 11/15/2020 17:06 EDT 1. ??Normal Doppler examination of the liver, with no evidence of portal hypertension or cirrhosis. 2. ??Normal right upper quadrant ultrasound. I have personally reviewed the images and the above interpretation and agree with the findings. Narrative 11/15/2020 17:06 EDT US HEPATOPORTAL VEIN DUPLEX ??11/15/2020 2:30 PM SIGNS AND SYMPTOMS/COMMENTS: Concern for possible portal hypertension seen on CT angiogram of the chest COMPARISONS: CT angiogram chest October 16, 2020 TECHNIQUE: Grayscale, color Doppler, spectral Doppler, and cine sweep ultrasound images of the liver were obtained. FINDINGS: LIVER: The liver measures 15.4 cm in length, which is normal. The liver is normal in echogenicity and echotexture with no nodularity or focal lesion. SPLEEN: The spleen measures 12.2 cm in length. No focal splenic lesion. The spleen is normal in echogenicity. PANCREAS: The visible portions of the pancreatic head and proximal body are unremarkable. BILE DUCTS: No ductal dilatation. The common bile duct measures 4 mm maximally. GALLBLADDER: No cholelithiasis. The gallbladder wall measures 3 mm, which is normal. RIGHT KIDNEY: The right kidney is normal in size measuring 12.2 cm in length and demonstrates no evidence of hydronephrosis or stones. Incidental note is made of an extrarenal pelvis. VESSELS: The proximal abdominal aorta and IVC are not well assessed due to overlying bowel gas. DOPPLER EVALUATION: Main Portal Vein: 28.6 cm/s, Normal/hepatopetal flow, no thrombus. Right Portal Vein: 15.0 cm/s, Normal/hepatopetal flow, no thrombus. Left Portal Vein: 11.4 cm/s, Normal/hepatopetal flow, no thrombus. Right Hepatic Vein: 49.7 cm/s, no thrombus Middle Hepatic Vein: 38.9 cm/s, no thrombus Left Hepatic Vein: 34.5 cm/s, no thrombus Splenic Vein at Hilum: 27.0 cm/s, Normal/hepatopetal flow, no thrombus Splenic Vein at Pancreas: 31.8 cm/s, Normal/hepatopetal flow, no thrombus Superior Mesenteric Vein: 11.6 cm/s, Normal/hepatopetal flow, no thrombus Inferior Vena Cava: 49.0 cm/s, normal flow, no thrombus Hepatic Artery at the Salvatore Hepatis: 53.1 cm/s PSV, 9.4 cm/s EDV VESSEL DIAMETERS: Main Portal Vein: Tidal Respiration 1.6 cm, Deep Inspiration 1.6 cm No ascites is seen in the lower quadrants. Procedure Note Savanna Roberto MD - 11/15/2020 US HEPATOPORTAL VEIN DUPLEX 11/15/2020 2:30 PM SIGNS AND SYMPTOMS/COMMENTS: Concern for possible portal hypertension seenon CT angiogram of the chest COMPARISONS: CT angiogram chest October 16, 2020 TECHNIQUE: Grayscale, color Doppler, spectral Doppler, and cine sweepultrasound images of the liver were obtained. FINDINGS: LIVER: The liver measures 15.4 cm in length, which is normal. The liver isnormal in echogenicity and echotexture with no nodularity or focallesion. SPLEEN: The spleen measures 12.2 cm in length. No focal splenic lesion.The spleen is normal in echogenicity. PANCREAS: The visible portions of the pancreatic head and proximal bodyare unremarkable. BILE DUCTS: No ductal dilatation. The common bile duct measures 4 mmmaximally. GALLBLADDER: No cholelithiasis. The gallbladder wall measures 3 mm, whichis normal. RIGHT KIDNEY: The right kidney is normal in size measuring 12.2 cm inlength and demonstrates no evidence of hydronephrosis or stones.Incidental note is made of an extrarenal pelvis. VESSELS: The proximal abdominal aorta and IVC are not well assessed due tooverlying bowel gas. DOPPLER EVALUATION: Main Portal Vein: 28.6 cm/s, Normal/hepatopetal flow, no thrombus. Right Portal Vein: 15.0 cm/s, Normal/hepatopetal flow, no thrombus. Left Portal Vein: 11.4 cm/s, Normal/hepatopetal flow, no thrombus. Right Hepatic Vein: 49.7 cm/s, no thrombus Middle Hepatic Vein: 38.9 cm/s, no thrombus Left Hepatic Vein: 34.5 cm/s, no thrombus Splenic Vein at Hilum: 27.0 cm/s, Normal/hepatopetal flow, no thrombus Splenic Vein at Pancreas: 31.8 cm/s, Normal/hepatopetal flow, nothrombus Superior Mesenteric Vein: 11.6 cm/s, Normal/hepatopetal flow, nothrombus Inferior Vena Cava: 49.0 cm/s, normal flow, no thrombus Hepatic Artery at the Salvatore Hepatis: 53.1 cm/s PSV, 9.4 cm/s EDV VESSEL DIAMETERS: Main Portal Vein: Tidal Respiration 1.6 cm, Deep Inspiration 1.6 cm No ascites is seen in the lower quadrants. IMPRESSION 1. Normal Doppler examination of the liver, with no evidence of portalhypertension or cirrhosis. 2. Normal right upper quadrant ultrasound. I have personally reviewed the images and the above interpretation andagree with the findings. Jasmyne Poe MD IMG VASCULAR ORDERABLES documented in this encounter Visit Diagnoses Diagnosis Portal hypertension (HCC-CMS)- Primary Portal hypertension Portal hypertension (HCC-CMS) Portal hypertension documented in this encounter Care Teams Military Personnel Specialist Relationship Specialty Start Date End Date Jasmyne Poe MD [address] [place] [phone] PCP - General 01/07/13 documented as of this encounter
--- OUTSIDE RECORDS SUMMARY | 2023-12-03 02:06 | XMS_ITS | Encounter Summary ---
Author Organization [facility] Address [address] [place] [address] Care Team Providers Care Logistics Account Manager Name Role Phone Jamsyne Poe MD Primary Care Provider + Reason for Visit * Reason Onset Date Comments Appointment Related 11/19/2022 Encounter Details Date Type Department Care Team (Late st Contact Info) Description 11/19/2022 Telephone [facility] Adult Primary Care - [address] [address] Jasmyne Poe MD [address] [place] [phone] Appointment Related Social History Tobacco Use [...] * Telephone Encounter - Angelica Pat - 11/19/2022 1658 EDT Confirmed upcoming appointment with patient on 12/11/2022 at 3:[address] Poe. Asked patient to have fasting labs done prior to the appointment. Please fast for at least 8 hours. You can continue to take your medications, drink plenty of water, and you may have black coffee with no cream orsugar. Faxed lab orders to [facility], fax #[phone], on 11/18/2022. documented in this encounter Plan of Treatment Upcoming Encounters Date Type Department Care Team (Late st Contact Info) Description 05/20/2024 14:45 EST Office Visit [facility] Adult Primary Care - [address] [phone] Jasmyne Poe MD [address] [place] [phone] documented as of this encounter Visit Diagnoses Not on filedocumented in this encounter Care Teams Logistics Account Manager Relationship Specialty Start Date End Date Jasmyne Poe MD [address] [place] [phone] PCP - General 01/07/13 documented as of this encounter
--- OUTSIDE RECORDS SUMMARY | 2023-12-03 02:06 | XMS_ITS | Encounter Summary ---
Author Organization [facility] Address [address] [place] [address] Care Team Providers Care Primer Inserting Machine Operator Name Role Phone Jasmyne Poe MD Primary Care Provider + Reason for Visit * Reason Onset Date Comments Depression 10/23/2021 PQH9 screen Encounter Details Date Type Department Care Team (Late st Contact Info) Description 10/23/2021 Telephone [facility] Adult Primary Care - [address] [address] Cassie Bradford RN Depression (PQH9 screen) Social History Tobacco Use Types Packs/Day Years [...] encounter Miscellaneous Notes * Telephone Encounter - Jasmyne Poe MD - 10/24/2021 1635 EDT Addressed at OV today * Telephone Encounter - Cassie Bradford RN - 10/23/2021 1347 EDT [facility] Adult Phq-2 Score (range: 0 - 6) 6 (Further screening recommended)??Critical?? Thoughts that you would be better off , or of hurting yourself in some way? Not at all [facility] Adult Phq-7 Score (range: 0 - 21) 13 [facility] Adult Phq-9 Score (range: 0 - 27) 19 (screen positive for depression)??Critical?? 10/23 @ 1:49 Message left on the patient's voicemail to call back documented in this encounter Plan of Treatment Upcoming Encounters Date Type Department Care Team (Late st Contact Info) Description 05/20/2024 14:45 EST Office Visit [facility] Adult Primary Care - [address] [address] Jasmyne Poe MD [address] [place] [phone] documented as of this encounter Visit Diagnoses Not on filedocumented in this encounter Care Teams Primer Inserting Machine Operator Relationship Specialty Start Date End Date Jasmyne Poe MD [address] [place] [phone] PCP - General 01/07/13 documented as of this encounter
--- OUTSIDE RECORDS SUMMARY | 2023-12-03 02:06 | XMS_ITS | Encounter Summary ---
Author Organization [facility] Address [address] [place] [address] Care Team Providers Care Manager Performance Improvement Name Role Phone Jasmyne Poe MD Primary Care Provider + Reason for Visit * Reason Onset Date Comments Atrial Fibrillation 12/19/2020 Encounter Details Date Type Department Care Team ([facility] st Contact Info) Description 12/19/2020 Telephone [facility] Cardiology - [address] [place] [address] Adriano Wolf MD [address] [place] [phone] Atrial Fibrillation Social History Tobacco Use Types [...] mg tablet Take 1 Tablet by mouth daily as needed for Other. 30 Tablet 1 12/19/2020 10/24/2021 documented in this encounter Miscellaneous Notes * Telephone Encounter - Florencia Granados RN - 01/05/[address] Wolf- I???d leave her on AC until it becomes more clear what???s happening next. Pt notified and verbalized understanding. She has 30 days worth of eliquis. She'll call back beforeshe runs out to update if she has any further AF episodes. * Telephone Encounter - Florencia Granados RN - 12/27/2020 1108 EDT Pt notified that Dr. Wolf feels she can take the diltiazem prn. Since the ablation she had the 4 hr episode of AF and then 2 nights later she had one other 4 nightepisode, she hasn't had any AF since. * Telephone Encounter - Florencia Granados RN - 12/19/2020 1104 EDT Pt is also asking if she needs to continue her daily diltiazem. * Telephone Encounter - Florencia Granados RN - 12/19/2020 1052 EDT Pt is S/P abl 10-03-20, 3 months fro stopping eliquis will be Jan 03. She was in AF this am [id number], 1st episode she's had since the ablation. Rate was mostly 100-120. She took her diltiazem 120mg early and then took an extra 120mg. She was out of her 30mg pill in the pocket ( Rx reordered) Reviewed w pt to call back or ED if she had further episodes, if HR is >120, CP or sob at rest. * Telephone Encounter - Maya Garner - 12/19/2020 0821 EDT Patient had an ablation in September 2020. This morning from 2am to 6:30am she was in afib. She is now in normal sinus rhythm. Asking for a call back documented in this encounter Plan of Treatment Upcoming Encounters Date Type Department Care Team (Late st Contact Info) Description 05/20/2024 14:45 EST Office Visit [facility] Adult Primary Care - [place] [address] [place], [place] [phone] Jasmyne Poe MD [address] [place] [phone] documented as of this encounter Visit Diagnoses Not on filedocumented in this encounter Discontinued Medications Medication Sig Discontinue Reason Start Date End Da te DILTiazem (CARDIZEM) 30 mg tablet Take 1 Tab by mouth daily as needed for Other. Reorder 10/11/2019 12/19/2020 documented as of this encounter Care Teams Manager Performance Improvement Relationship Specialty Start Date End Date Jasmyne Poe MD [address] [place] [phone] PCP - General 01/07/13 documented as of this encounter
--- OUTSIDE RECORDS SUMMARY | 2023-12-03 02:06 | XMS_ITS | Encounter Summary ---
Author Organization [facility] Address [address] [place] [address] Care Team Providers Care Distribution Sales Representative Name Role Phone Jasmyne Poe MD Primary Care Provider + Reason for Visit * Reason Comments Annual Exam Encounter Details Date Type Department Care Team (Late st Contact Info) Description 10/24/2021 15:15 EDT Office Visit [facility] Adult Primary Care - [address] [address] Jasmyne Poe MD [address] [place] [phone] Encounter for preventive health examination (Primary Dx); Depression screen; Acquired hypothyroidism; Colon cancer screening; Encounter for screening mammogram for malignant neoplasm of breast; Hyperglycemia; Elevated LDL cholesterol level; Anxiety Social History Tobacco Use Types Packs/Day Years [...] place to sleep or slept in a fci (including now)? No 10/24/2021 Interpersonal Safety Answer Date Record ed How often does anyone, inclyany candice family, hit, punch or physically hurt you? Never 10/24/2021 How often does anyone, toi candice family, insult, scream, curse or threaten to hurt you? Never 10/24/2021 Sex and Gender Information Value Date Recorded Sex Assigned at Not on file Gender Identity Female 06/02/2019 15:13 EST Sexual Orientation Not on file documented as of this encounter Last Filed Vital Signs Vital Sign Reading Time Taken Comments Blood Pressure 140/76 10/24/2021 1510 EDT Pulse 73 10/24/2021 1510 EDT Temperature 36.9 ??C (98.5 ??F) 10/24/2021 1510 EDT Respiratory Rate 12 10/24/2021 1510 EDT Oxygen Saturation - - Inhaled Oxygen Concentration - - Weight 82 kg (180 lb 12.8 oz) 10/24/2021 1510 ED T Height 177 cm (5' 9.69) 10/24/2021 1510 EDT Body Mass Index 26.18 10/24/2021 1510 EDT documented in this encounter Functional Status Functional [...] * Patient Instructions* Jasmyne Poe MD - 10/24/2021 15:15 EDT Please contact the gastroenterology department to schedule your colonoscopy appointment at [phone], option #2. Mammogram: picker feeder order at front office director Fasting blood work in three months. Start sertraline 25 mg daily documented in this encounter Ordered Prescriptions Prescription Sig Dispensed Refills Start Date End Da te sertraline (ZOLOFT) 25 mg tablet Take 1 Tablet by mouth daily. 30 Tablet 3 10/24/2021 02/01/2022 polyethylene glycol (GOLYTELY;NULYTELY) 236-22.74-6.74 -5.86 gram suspension Instructions mailed once procedure scheduled. 4000 mL 10/24/2021 04/22/2022 documented in this encounter Progress Notes * Jasmyne Poe MD - 10/24/2021 1515 EDT Female Well Adult Preventative Care Visit Patient ID: Kirsten Almaguer is an 56 y.o. female. Subjective: HISTORY OF PRESENT ILLNESS: Here for a wellness visit. Patient profile: she is with three children. 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 She is not exercising as regularly since she had her knee replaced in July. ?? She reports increased anxiety and depression. Several years ago, she was on sertraline which workedwell for her mood but she stopped this because she was concerned that the medication was causing episodes of atrial fibrillation. She has not had any recurrent atrial fibrillation as far as she knowssince her ablation last spring. She is willing to try the medication again. She reports no new stressors however has wondered whether she has posttraumatic stress disorder due to her son's diagnosis of AML in the past and her mother's at age 63 around the same time. Her son is now 20 and doing well. Her job is stressful as well but there has been no recent change in the situation. She does think that she would benefit from counseling and has a few providers in mind that she could contact. She also expects that when she gets back to regular exercise in eating a healthier diet that she will feel better. We reviewed her cholesterol results today. She acknowledges that her LDL cholesterol is up and she attributes this to her recent poor diet. She would like to work on diet and exercise over the next 3months and then repeat the lipid panel. She checks her blood pressure at home and it runs in the 128 to 132 over 60s range. Patient Active Problem List Diagnosis ??? Osteoarthritis ??? Allergy to penicillin ??? Anxiety ??? Acquired hypothyroidism ??? Myalgia ??? Abnormal uterine bleeding ??? Undifferentiated connective tissue disease (HCC-CMS) (HCC) ??? Mild aortic stenosis ??? RAJ (obstructive sleep apnea) ??? Paroxysmal atrial fibrillation (HCC-CMS) (HCC) Past Medical History: Diagnosis Date ??? A-fib (HCC-CMS) (HCC) paroxysmal , currently on diltiazem ??? Anxiety 2002 on zoloft in the past ??? Aortic valve disease mild stenosis ??? History of epidural anesthesia and spinal , w/o issue ??? History of gestational diabetes resolved w/ diet and exercise ??? Hypertension with episdes of anxiety in the past ??? Hypothyroidism tx w/ meds ??? Rheumatoid arthritis (HCC) poss. she is currently being seen by rheumatology - gets occas flare-ups ??? Rotator cuff injury 01/19/2014 Right shoulder ??? Sleep apnea tested , no treatment recommended Past Surgical History: Procedure Laterality Date ??? SECTION 1985 ??? KNEE ARTHROSCOPY Right 2002 right knee ??? PRE-MALIGNANT / BENIGN SKIN LESION EXCISION right upper back ??? TOTAL KNEE ARTHROPLASTY Left 08/07/2021 done at [facility] Social History Tobacco Use ??? Smoking status: Never Smoker ??? Smokeless tobacco: Never Used ??? Tobacco comment: a little in high school Vaping Use ??? Vaping Use: Never used Substance Use Topics ??? Alcohol use: Not Currently ??? Drug use: No Family History Problem Relation Age of Onset ??? Lung Cancer Mother 63 of lung cancer of 63 ??? Alcohol Abuse Father cause of unknown , @ 58yo ??? No Known Brother ??? Diabetes Maternal Grandmother ??? Hypertension Maternal Grandmother ??? Diabetes Maternal Uncle ??? Heart Disease Maternal Grandfather ??? Lymphoma Maternal Grandfather Hodgkin's lymphoma ??? Heart Surgery Other 50 grandmother ??? Heart Attack Other 60 grandfather- [place] ??? Leukemia Son AML Allergies Allergen Reactions ??? Penicillins Anaphylaxis Tolerates cephalexin ??? Sulfa (Sulfonamide Antibiotics) Rash Current Outpatient Medications Medication ??? apixaban (ELIQUIS) 5 mg tablet ??? B Complex Vitamins (VITAMIN B COMPLEX) tablet ??? cholecalciferol, Vitamin D3, 2,000 unit tablet ??? dilTIAZem (CARDIZEM) 30 mg tablet ??? dilTIAZem (TIAZAC) 120 mg SR capsule ??? erythromycin (ROMYCIN) 5 mg/gram (0.5 %) ophthalmic ointment ??? levothyroxine (SYNTHROID) 50 mcg tablet ??? Magnesium 250 mg tablet ??? melatonin 3 mg tablet ? ? MULTIVIT &MINERALS/FERROUS FUM (MULTI VITAMIN ORAL) ??? pantoprazole (PROTONIX) 40 mg tablet ??? vit C/Zn gluc/herbal no.325 (ELDERBERRY ZINC VIT C MM) No current facility-administered medications for this visit. Review of Systems Constitutional: Positive for malaise/fatigue (low energy). Negative for chills, diaphoresis and fever. Respiratory: Negative for cough and shortness of breath. Cardiovascular: Negative for chest pain and palpitations. Gastrointestinal: Negative for abdominal pain, blood in stool, constipation, diarrhea, heartburn, melena and nausea. Genitourinary: Negative for dysuria and hematuria. Musculoskeletal: Positive for joint pain (just the left knee). Skin: Negative for rash. Neurological: Negative for dizziness and headaches. Psychiatric/Behavioral: Positive for depression. Objective: BP 140/76 Pulse 73 Temp 36.9 ??C (98.5 ??F) Resp 12 Ht 177 cm (69.69) Wt 82 kg (180 lb 12.8 oz) BMI 26.18 kg/m?? Body mass index is 26.18 kg/m??. Physical Exam General: well-developed, well-nourished woman HEENT: oral mucosa and pharynx are normal and without lesions. TM's mostly obscured by cerumen. Sclerae are clear and non-icteric. Neck: no lymphadenopathy or thyromegaly Breasts: examined in the supine position. No lumps or axillary lymphadenopathy. Lungs: clear in all lung negrete Cardiac: regular without murmur or gallop Abdomen: soft, non-tender, no masses. No hepatomegaly. : exam deferred. Extremities: no cyanosis or edema Skin: no rashes LABS: Blood work was done at [facility] on 10/23/2021 CMP significant for elevated glucose of 127 Lipids: LDL elevated at 162, triglycerides 114 and HDL normal at 60 TSH normal at 2.08 Results for orders placed or performed in visit on 10/23/21 HEPATITIS C AB W REFLEX TO HCV RNA BY PCR Result Value Ref Range Hep C Antibody Negative Negative Assessment: 56 year old woman here for a wellness visit. She defers the shingles vaccine and COVID booster. Immunization History Administered Date(s) Administered ??? Covid-19 Ad26 Vaccine (Stroodle COVID-19) PF 0.5 ml IM (18 yrs+) 12/08/2020 ??? Historical Influenza Vaccine, Unspecified 02/16/2018 ??? Influenza Vaccine Quad (AFLURIA) PF 0.5 ml IM (3 yrs+) 01/21/2014, 02/15/2015, 01/27/2017, 02/25/2018, 02/09/2019, 02/16/2020 ??? Influenza Vaccine Recomb Quad RIV4 (FLUBLOK) PRSRV/ABX Free 0.5 ml IM (18 yrs+) 02/15/2019 ??? MMR Vaccine SQ 01/03/2009 ??? PPD Skin Test Placement 12/20/2008, 01/03/2009 ? ? Tdap Vaccine =>7YO IM 12/20/2008, 05/25/2018 Breast cancer screening:??she??has never had a mammogram??and was??reminded again to schedule this.She will have this done at [facility] and mammogram order form printed out. 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 She has history of ASGUS with negative HPV in 2016. Colon cancer screening: she??has never had colonoscopy and is still due for a colonoscopy and agrees to another referral??to [facility]. Osteoporosis screening/prevention: she is taking a vitamin D supplement and vitamin D level is normal. Given Advanced??Directives paperwork.?? 1. Anxiety and depressed mood: restart sertraline at 25 mg daily. Titrate up as needed if she tolerates this dose. She will look for a counselor close to home. I encouraged her to call here if she would like help connecting with one. 2. Undifferentiated connective tissue disorder: symptoms are quiet now. 3. Mixed hyperlipidemia: repeat lipid panel in three months. 4. Hypothyroidism: TSH normal . Continue levothyroxine at 50 mcg daily. Plan: As above Follow-up in three months by video. Kirsten was seen today for annual exam. Diagnoses and all orders for this visit: Encounter for preventive health examination Depression screen Acquired hypothyroidism No follow-ups on file. References: USPTF Level A & B Recommendations List USPTF Adult Recommendations USPTF Breast Cancer Screening USPTF Cervical Cancer Screening USPTF Colorectal Cancer Screening CDC Adult Immunizations 2010 CDC 7-18 Years Immunizations 2010 AAFP Clinical Recommendations documented in this encounter Plan of Treatment Upcoming Encounters Date Type Department Care Team (Late st Contact Info) Description 05/20/2024 14:45 EST Office Visit [facility] Adult Primary Care - [address] [address] Jasmyne Poe MD [address] [place] [phone] documented as of this encounter Visit Diagnoses Diagnosis Encounter for preventive health examination- Primary Routine general medical examination at a health care facility Depression screen Screening for depression Acquired hypothyroidism Unspecified hypothyroidism Colon cancer screening Special screening for malignant neoplasms, colon Encounter for screening mammogram for malignant neoplasm of breast Other screening mammogram Hyperglycemia Other abnormal glucose Elevated LDL cholesterol level Pure hypercholesterolemia Anxiety Anxiety state, unspecified documented in this encounter Discontinued Medications Medication Sig Discontinue Reason Start Date End Da te apixaban (ELIQUIS) 5 mg tablet Take 1 Tablet by mouth 2 times daily. Plan is for you to start eliquis after your cardiac ablation. Therapy completed 01/03/2021 10/24/2021 dilTIAZem (CARDIZEM) 30 mg tablet Take 1 Tablet by mouth daily as needed for Other. 12/19/2020 10/24/2021 dilTIAZem (TIAZAC) 120 mg SR capsule Take 1 capsule by mouth daily. 10/05/2020 10/24/2021 erythromycin (ROMYCIN) 5 mg/gram (0.5 %) ophthalmic ointment Apply to right lower eyelid 3 times daily for 1 week Therapy completed 03/06/2021 10/24/2021 pantoprazole (PROTONIX) 40 mg tablet Take one tablet daily the 3 days prior to your ablation and for 30 days afterwards. Patient Stopped Taking 09/30/2020 10/24/2021 MULTIVIT &MINERALS/FERROUS FUM (MULTI VITAMIN ORAL) Take by mouth. 10/24/2021 documented as of this encounter Historical Medications * This list may reflect changes made after this encounter. Medication Sig Dispensed Refills Start Date End Date Multivitamins with Minerals tablet tablet Take 1 Tablet by mouth daily. added in this encounter Care Teams Distribution Sales Representative Relationship Specialty Start Date End Date Jasmyne Poe MD [address] [place] [phone] PCP - General 01/07/13 documented as of this encounter
--- OUTSIDE RECORDS SUMMARY | 2023-12-03 02:06 | XMS_ITS | Encounter Summary ---
Author Organization [facility] Address [address] [place] [address] Care Team Providers Care Stone Rubber Name Role Phone Jasmyne Poe MD Primary Care Provider + Reason for Visit * Reason Onset Date Comments Results 10/30/2021 Enter/Edit Encounter Details Date Type Department Care Team (Late st Contact Info) Description 10/30/2021 Orders Only [facility] Adult Primary Care - [address] [address] Jasmyne Poe MD [address] [place] [phone] Social History Tobacco Use Types Packs/Day [...] slept in a retirement (including now)? No 10/24/2021 Interpersonal Safety Answer [...] Info) Description 05/20/2024 14:45 EST Office Visit [facility] Adult Primary Care - [place] [address] [place] [address] Jasmyne Poe MD [address] [place] [phone] documented as of this encounter Procedures Procedure Name Priority Date/Time Associated Diagnosis Comments TSH Routine 10/23/2021 12:50 EDT LIPID PROFILE (INCLUDES CHOLESTEROL, TRIGLYCERIDES, HDL, LDL) Routine 10/23/2021 12:50 EDT COMPREHENSIVE METABOLIC PANEL (CMP) Routine 10/23/2021 12:50 EDT documented in this encounter Results * TSH (10/23/2021 12:50 EDT) TSH, External 2.08 0.36 - 3.74 uIU/mL [facility] Blood VENOUS BLOOD / Unknown 10/23/2021 12:50 EDT Historical Provider CHEMISTRY & BLOOD GAS ORDERABLES [facility] * LIPID PROFILE (INCLUDES CHOLESTEROL, TRIGLYCERIDES, HDL, LDL) (10/23/2021 12:50 EDT) Cholesterol, External 244 <200 mg/dL [facility] Comment:H Triglycerides, External 114 <150 mg/dL [facility] HDL, External [facility] LDL, External 162 <100 mg/dL [facility] Comment:H Chol/HDL Ratio, External 60 40 - 60 mg/dL [facility] Fasting?, External [facility] Blood VENOUS BLOOD / Unknown 10/23/2021 12:50 EDT Historical Provider CHEMISTRY & BLOOD GAS ORDERABLES [facility] * COMPREHENSIVE METABOLIC PANEL (CMP) (10/23/2021 12:50 EDT) GFR, Calculated, External >=60.00 1.73m2 mL/min [facility] Glucose, Serum, External 127 74 - 106 mg/dL [facility] Comment:H Albumin, External 4.1 3.4 - 5.0 g/dL [facility] Total Alkaline Phosphatase, External [facility] ALT, External [facility] AST, External [facility] BUN, External [facility] Calculated Calcium, External [facility] Calcium, External 8.6 8.5 - 10.1 mg/dL [facility] Chloride, External [facility] CO2, External [facility] Creatinine, External 0.5 0.55 - 1.02 mg/dL [facility] Comment:L Fasting?, External [facility] Potassium, External [facility] Sodium, External [facility] Total Protein, External 7.2 6.4 - 8.2 g/dL [facility] Bilirubin, Total, External [facility] Blood VENOUS BLOOD / Unknown 10/23/2021 12:50 EDT Historical Provider CHEMISTRY & BLOOD GAS ORDERABLES Performing Organization Address City/[facility]/ZIP Co de Phone Number [facility] documented in this encounter Visit Diagnoses Not on filedocumented in this encounter Care Teams Stone Rubber Relationship Specialty Start Date End Date Jasmyne Poe MD [address] [place] [phone] PCP - General 01/07/13 documented as of this encounter
--- OUTSIDE RECORDS SUMMARY | 2023-12-03 02:06 | XMS_ITS | Encounter Summary ---
Author Organization [facility] Address [address] [place] [address] Care Team Providers Care Workers Compensation Legal Secretary Name Role Phone Jasmyne Poe MD Primary Care Provider + Reason for Visit * Reason Onset Date Comments Orders (Non Pre-visit) 10/20/2020 US HEPATO PORTAL VEIN DUPLEX Encounter Details Date Type Department Care Team (Late st Contact Info) Description 10/20/2020 Telephone [facility] Adult Primary Care - [address] [address] Jasmyne Poe MD [address] [place] [phone] Orders (Non Pre-visit) (US HEPATOPORTAL VEIN DUPLEX ) Social History Tobacco Use Types Packs/Day Years [...] Telephone Encounter - Jasmyne Poe MD - 10/20/2020 1500 EDT I ordered an ultrasound and it was changed to this test by Radiology. I just placed another order for RUQ US to be done externally. * Telephone Encounter - Ijeoma Peter - 10/20/2020 1217 EDT US HEPATOPORTAL VEIN DUPLEX [place] @ [facility] does not perform this type of US at their hospital documented in this encounter Plan of Treatment Upcoming Encounters Date Type Department Care Team (Late st Contact Info) Description 05/20/2024 14:45 EST Office Visit [facility] Adult Primary Care - [address] [phone] Jasmyne Poe MD [address] [place] [phone] documented as of this encounter Visit Diagnoses Diagnosis Portal hypertension (HCC-CMS)- Primary Portal hypertension documented in this encounter Care Teams Workers Compensation Legal Secretary Relationship Specialty Start Date End Date Jasmyne Poe MD [address] [place] [phone] PCP - General 01/07/13 documented as of this encounter
--- OUTSIDE RECORDS SUMMARY | 2023-12-03 02:06 | XMS_ITS | Encounter Summary ---
Author Organization [facility] Address [address] [place] [address] Care Team Providers Care Cooker Soda Name Role Phone Jasmyne Poe MD Primary Care Provider + Reason for Visit * Reason Onset Date Comments Appointment Related 01/11/2022 Encounter Details Date Type Department Care Team (Late st Contact Info) Description 01/11/2022 Telephone [facility] Adult Primary Care - [address] [address] Jasmyne Poe MD [address] [place] [phone] Appointment Related Social History Tobacco Use [...] place to sleep or slept in a long-term (including now)? No 10/24/2021 Interpersonal Safety Answer [...] Telephone Encounter - Angelica Pat - 01/11/2022 1053 EDT Faxed lab orders to [facility], fax # [phone], on 01/11/2022 for: Lipid Profile, Hemo A1C, TSH, CMP, Hep C. For appt. with Dr. Poe on 01/30/2022 at 4:30 p.m. documented in this encounter Plan of Treatment Upcoming Encounters Date Type Department Care Team (Late st Contact Info) Description 05/20/2024 14:45 EST Office Visit [facility] Adult Primary Care - [address] [address] Jasmyne Poe MD [address] [place] [phone] documented as of this encounter Visit Diagnoses Not on filedocumented in this encounter Care Teams Cooker Soda Relationship Specialty Start Date End Date Jasmyne Poe MD [address] [place] [phone] PCP - General 01/07/13 documented as of this encounter
--- OUTSIDE RECORDS SUMMARY | 2023-12-03 02:06 | XMS_ITS | Encounter Summary ---
Author Organization [facility] Address [address] [place] [address] Care Team Providers Care Assembler Fishing Floats Name Role Phone Jasmyne Poe MD Primary Care Provider + Encounter Details Date Type Department Care Team (Late st Contact Info) Description 10/23/2021 Lab Requisition [facility] Pathology & Laboratory Medicine - [facility] [address] [place] [address] Outr Resulting Lab, Provider Social History Tobacco [...] place to sleep or slept in a mcc (including now)? No 10/24/2021 Interpersonal Safety Answer [...] No 10/03/2020 Cognitive Status Response Date of Assess ent Because of a physical, menta l, [...] [facility] - [address] [address] Jasmyne Poe MD [address] [place] [phone] documented as of this encounter Procedures Procedure Name Priority Date/Time Associated Diagnosis Comments HEPATITIS C AB W REFLEX TO HCV RNA BY PCR Routine 10/23/2021 7:50 EDT documented in this encounter Results * HEPATITIS C AB W REFLEX TO HCV RNA BY PCR (10/23/2021 7:50 EDT) Hep C Antibody Negative Negative 10/24/2021 11:39 EDT [facility] Blood VENOUS BLOOD / Unknown 10/23/2021 7:50 EDT 10/23/2021 16:38 EDT Provider Outr Resulting Lab CHEMISTRY & BLOOD GAS ORDERABLES [facility] [address] [place] [address] documented in this encounter Visit Diagnoses Not on filedocumented in this encounter Care Teams Assembler Fishing Floats Relationship Specialty Start Date End Date Jasmyne Poe MD [address] [place] [phone] PCP - General 01/07/13 documented as of this encounter
--- OUTSIDE RECORDS SUMMARY | 2023-12-03 02:06 | XMS_ITS | Encounter Summary ---
Author Organization [facility] Address [address] [place] [address] Care Team Providers Care Reflexologist Name Role Phone Jasmyne Poe MD Primary Care Provider + Reason for Visit * Reason Onset Date Comments Medications Refill 10/28/2022 Encounter Details Date Type Department Care Team (Late st Contact Info) Description 10/28/2022 Refill [facility] Adult Primary Care - [place] [address] [place] [address] Jasmyne Poe MD [address] [place] [phone] Medications Refill Social History Tobacco Use [...] 1 Tablet by mouth daily. 90 Tablet 10/28/2022 02/06/2023 documented in this encounter Miscellaneous Notes * Telephone Encounter - Milton Islas RN - 10/28/2022 1342 EDT Requested Prescriptions Pending Prescriptions Disp Refills ??? levothyroxine (SYNTHROID) 50 mcg tablet 90 Tablet 1 Sig: Take 1 Tablet by mouth daily. [address] [facility] [address] Last Refill Date: 04/17/22 Last Visit Date with Provider: 03/20/22 Next Non-Acute Visit Date Scheduled with Care Team: Yes. MILTON ISLAS RN 10/28/2022 13:42 * Telephone Encounter - Milton Islas RN - 10/28/2022 1341 EDTFrom: Kirsten Almaguer To: Office of Jasmyne Poe MD Sent: 10/28/2022 9:05 EDT Subject: Medication Renewal Request Refills have been requested for the following medications: levothyroxine (SYNTHROID) 50 mcg tablet [Jasmyne Poe] Preferred pharmacy: [address] documented in this encounter Plan of Treatment Upcoming Encounters Date Type Department Care Team (Late st Contact Info) Description 05/20/2024 14:45 EST Office Visit [facility] Adult Primary Care - [address] [phone] Jasmyne Poe MD [address] [place] [phone] documented as of this encounter Visit Diagnoses Diagnosis Acquired hypothyroidism- Primary Unspecified hypothyroidism documented in this encounter Discontinued Medications Medication Sig Discontinue Reason Start Date End Da te levothyroxine (SYNTHROID) 50 mcg tabletIndications:Acquired hypothyroidism Take 1 Tablet by mouth daily. Reorder 04/17/2022 10/28/2022 documented as of this encounter Care Teams Reflexologist Relationship Specialty Start Date End Date Jasmyne Poe MD [address] [place] [phone] PCP - General 01/07/13 documented as of this encounter
--- OUTSIDE RECORDS SUMMARY | 2023-12-03 02:06 | XMS_ITS | Encounter Summary ---
Author Organization [facility] Address [address] [place] [address] Care Team Providers Care Circulation Supervisor Name Role Phone Jasmyne Poe MD Primary Care Provider + Reason for Visit * Reason Onset Date Comments Labs Only 05/02/2023 Encounter Details Date Type Department Care Team (Late st Contact Info) Description 05/02/2023 Orders Only [facility] Adult Primary Care - [address] [address] Jasmyne Poe MD [address] [place] [phone] Encounter for preventative adult health care examination (Primary Dx); Acquired hypothyroidism; Borderline diabetes Social History Tobacco Use Types Packs/Day Years [...] place to sleep or slept in a chcf (including now)? No 10/24/2021 Interpersonal Safety Answer [...] Info) Description 05/20/2024 14:45 EST Office Visit [facility] Adult Primary Care - [address] [address] Jasmyne Poe MD [address] [place] [phone] documented as of this encounter Visit Diagnoses Diagnosis Encounter for preventative adult health care examination- Primary Acquired hypothyroidism Unspecified hypothyroidism Borderline diabetes Other abnormal glucose documented in this encounter Care Teams Circulation Supervisor Relationship Specialty Start Date End Date Jasmyne Poe MD [address] [place] [phone] PCP - General 01/07/13 documented as of this encounter
--- OUTSIDE RECORDS SUMMARY | 2023-12-03 02:06 | XMS_ITS | Encounter Summary ---
Author Organization [facility] Address [address] [place] [address] Care Team Providers Care Centura Technical Lead Senior Developer Name Role Phone Jasmyne Poe MD Primary Care Provider + Reason for Visit * Reason Onset Date Comments Medications Refill 04/17/2022 Encounter Details Date Type Department Care Team (Late st Contact Info) Description 04/17/2022 Refill [facility] Adult Primary Care - [place] [address] [place] [address] Jasmyne Poe MD [address] [place] [phone] Medications Refill Social History Tobacco Use [...] slept in a longterm (including now)? No 10/24/2021 Interpersonal Safety Answer [...] Tablet by mouth daily. 90 Tablet 1 04/17/2022 10/28/2022 documented in this encounter Miscellaneous Notes * Telephone Encounter - Lani Johns RN - 04/17/2022 7457 EST Requested Prescriptions Pending Prescriptions Disp Refills ??? levothyroxine (SYNTHROID) 50 mcg tablet 90 Tablet 0 Sig: Take 1 Tablet by mouth daily. [address] [place] [address] [facility] [id number] Last Refill Date: 01/09/22 Last Visit Date with Provider: 03/20/22 Next Non-Acute Visit Date Scheduled with Care Team: Yes. LANI JOHNS RN 04/17/2022 14:15 * Telephone Encounter - Lani Johns RN - 04/17/2022 7888 ESTFrom: Kirsten Almaguer To: Office of Jasmyne Poe MD Sent: 04/17/2022 14:13 EST Subject: Medication Renewal Request Refills have been requested for the following medications: levothyroxine (SYNTHROID) 50 mcg tablet [Jasmyne Poe] Preferred pharmacy: [address] documented in this encounter Plan of Treatment Upcoming Encounters Date Type Department Care Team (Late st Contact Info) Description 05/20/2024 14:45 EST Office Visit [facility] Adult Primary Care - [address] [phone] Jasmyne Poe MD [address] [place] [phone] documented as of this encounter Visit Diagnoses Diagnosis Acquired hypothyroidism- Primary Unspecified hypothyroidism documented in this encounter Discontinued Medications Medication Sig Discontinue Reason Start Date End Da te levothyroxine (SYNTHROID) 50 mcg tabletIndications:Acquired hypothyroidism Take 1 Tablet by mouth daily. Reorder 01/09/2022 04/17/2022 documented as of this encounter Care Teams Centura Technical Lead Senior Developer Relationship Specialty Start Date End Date Jasmyne Poe MD [address] [place] [phone] PCP - General 01/07/13 documented as of this encounter
--- OUTSIDE RECORDS SUMMARY | 2023-12-03 02:06 | XMS_ITS | Encounter Summary ---
Author Organization [facility] Address [address] [place] [address] Care Team Providers Care Digital Sales Director Name Role Phone Jasmyne Poe MD Primary Care Provider + Reason for Visit * Reason Comments Atrial Fibrillation Follow-up [facility] Encounter Details Date Type Department Care Team (Late st Contact Info) Description 10/18/2020 8:40 EDT Office Visit [facility] Cardiology - [address] [address] Ana Jimenez NP [address] [facility] [address] [place] [phone] Paroxysmal atrial fibrillation (HCC-CMS) (Primary Dx) Social History Tobacco Use Types Packs/Day Years [...] 22:00 EDT documented as of this encounter Last Filed Vital Signs Vital Sign Reading Time Taken Comments Blood Pressure 124/66 10/18/2020 0847 EDT Pulse 59 10/18/2020 0847 EDT Temperature 36.8 ??C (98.2 ??F) 10/18/2020 0847 EDT Respiratory Rate - - Oxygen Saturation 100% 10/18/2020 0847 EDT Inhaled Oxygen Concentration - - Weight 80 kg (176 lb 4.8 oz) 10/18/2020 0847 EDT Height - - Body Mass Index 26.03 10/15/2020 2159 EDT documented in this encounter Functional Status [...] as of this encounter Progress Notes * Ana Jimenez, RESPIRATORY THERAPY ASSISTANT - 10/18/2020 0840 EDT DATE OF VISIT: 10/18/2020 CHIEF COMPLAINT: Atrial fibrillation I had the pleasure of seeing Kirsten Almaguer in the [facility] cardiology clinic today for hospital follow up for atrial fibrillation. Ms. Kirsten Almaguer is a 55 year old female with a past medical history significant for paroxysmalatrial fibrillation not on anticoagulation (chads-vasc 1 - age), sinus node dysfunction, hypothyroidism, previous hypertension (resolved with weight loss), mild RAJ who was admitted on 10/03/20 for planned atrial fibrillation ablation. ?? She has had more frequent and longer episodes of afib recently (lasting up to 12-18 hours) associated with chest pressure, SOB and palpitation. Her last episode of Afib was on 09/25/20. Given her sinusnode dysfunction, her rate limiting options have been limited. She takes diltiazem ER 180 mg daily despite bradycardia and rarely takes diltiazem 30 mg prn. She met with Dr. Hughes and Dr. [facility] and the decision was made to move forward with afib ablation. ?? She underwent an atrial fib ablation characterized by enc/isolation of RPVs and LPVs and was in NSRat the end of the case. Overnight telemetry shows NSR. On exam lungs are clear, S1S2 RRR no MRG. Bilateral groin puncture sites ae clean and dry. No bruising or bleeding noted. She feels well today with only mild discomfort with deep inspiration. No pain or difficulty swallowing, no fever or chillsovernight. Take diltiazem ER 120 mg daily (reduced from 180 mg given SND) and pill in the pocket immediate release 30 mg prn for atrial fibrillation. Start anticoagulation with apixaban 5 mg BID following your procedure and continue uninterrupted for three months following the procedure. Discontinue [id number] mg daily. Will be taking Pantoprazole 40 mg daily for the next 30 days for esophageal protection post ablation. H/P per M MacDoanld. STEPHENS She presented to the ED yesterday with fever, A CT ruled out esophageal fistule. She was in sinus rhythm. No AF. In Af she feels palpitations, chest pressure, BUENO. Fleeting palpitations. Today she presents reporting no fever since she presented to the ED. No UTI symptoms. Some stomach discomfort, improving on protonix. She is compliant t aking Eliquis 5mg bid, protonix, and has Diltiazem pill in the pocket. Groin sites well healed, some right upper thigh bruising. , denies fever, chills, no difficulty swallowing ?? PAST MEDICAL HISTORY 1. paroxysmal atrial fibrillation not on anticoagulation (chads-vasc 1 - age) s/p Af RFA performed 10/03/20 2. sinus node dysfunction 3. Hypothyroidism 4. previous hypertension (resolved with weight loss) 5. mild RAJ CURRENT MEDICATIONS Current Outpatient Medications on File Prior to Visit Medication Sig Dispense Refill ??? apixaban (ELIQUIS) 5 mg tablet Take 1 Tab by mouth 2 times daily. Plan is for you to start eliquis after your cardiac ablation. 60 Tab 2 ??? B Complex Vitamins (VITAMIN B COMPLEX) tablet Take 1 Each by mouth daily. ??? cholecalciferol, Vitamin D3, 2,000 unit tablet Take by mouth. ??? DILTiazem (CARDIZEM) 30 mg tablet Take 1 Tab by mouth daily as needed for Other. (Patient not taking: Reported on 10/03/2020) 30 Tab 0 ??? dilTIAZem (TIAZAC) 120 mg SR capsule Take 1 capsule by mouth daily. 30 capsule 3 ??? levothyroxine (SYNTHROID) 50 mcg tablet Take 1 Tab by mouth daily. 90 Tab 1 ??? Magnesium 250 mg tablet Take 1 Each by mouth daily. ??? melatonin 3 mg tablet Take by mouth at bedtime. ? ? MULTIVIT &MINERALS/FERROUS FUM (MULTI VITAMIN ORAL) Take by mouth. ??? pantoprazole (PROTONIX) 40 mg tablet Take one tablet daily the 3 days prior to your ablation and for 30 days afterwards. 33 Tab 0 No current facility-administered medications on file prior to visit. ALLERGIES Allergies Allergen Reactions ??? Penicillins Anaphylaxis Tolerates cephalexin ??? Sulfa (Sulfonamide Antibiotics) Rash SOCIAL HISTORY reports that she has never smoked. She has never used smokeless tobacco. She reports previous alcohol use. She reports that she does not use drugs. REVIEW OF SYSTEMS Review of Systems Constitutional: Negative for chills, fever and malaise/fatigue. HENT: Negative for nosebleeds. Respiratory: Negative for cough, shortness of breath and wheezing. Cardiovascular: Negative for chest pain, palpitations, orthopnea, claudication, leg swelling and PND. Gastrointestinal: Negative for blood in stool and melena. Genitourinary: Negative for hematuria. Skin: Negative for itching and rash. Neurological: Negative for dizziness and loss of consciousness. Psychiatric/Behavioral: The patient does not have insomnia. PHYSICAL EXAMINATION BP 124/66 (BP Cuff Location: Right arm, BP Patient Position: Sitting, BP Cuff Sizes: Adult, regular) Pulse 59 Temp 36.8 ??C (98.2 ??F) (Tympanic) Wt 80 kg (176 lb 4.8 oz) SpO2 100% BMI 26.03 kg/m?? Physical Exam Vitals reviewed. Constitutional: General: She is not in acute distress. Appearance: Normal appearance. Neck: Vascular: No carotid bruit. Cardiovascular: Rate and Rhythm: Normal rate and regular rhythm. Pulses: Normal pulses. Heart sounds: Normal heart sounds. No murmur heard. No friction rub. No gallop. Pulmonary: Effort: Pulmonary effort is normal. Breath sounds: Normal breath sounds. No wheezing or rhonchi. Abdominal: General: Abdomen is flat. Musculoskeletal: General: No swelling. Cervical back: Normal range of motion. Comments: Groin sites well healed, distal pulses strong bilaterally. , denies fever, chills, no difficulty swallowing Skin: General: Skin is warm and dry. Neurological: General: No focal deficit present. Mental Status: She is alert and oriented to person, place, and time. Psychiatric: Mood and Affect: Mood normal. DATA I reviewed the reports of the following tests: ?? Echocardiogram performed 09/2019: Summary: ?? 1. Left ventricle: The cavity size was normal. Wall thickness was at the upper limits of normal. Systolic function was normal. The estimated ejection fraction was 60-65%. Wall motion was normal; there were no regional wall motion abnormalities. 2. Aortic valve: Transvalvular velocity was minimally increased. There was very mild stenosis. Valve area (VTI): 1.7cm^2. Valve area (Vmean): 1.9cm^2. 3. Ascending aorta: The ascending aorta was at upper normal limits. 4. Mitral valve: There was mild regurgitation. 5. Right ventricle: The cavity size was normal. Wall thickness was normal. Systolic function was normal. 6. Pulmonary arteries: Pulmonary systolic pressure was at the upper limits of normal. PA peak pressure: 36mm Hg (S). ?? : The most recent laboratory evaluation included the following: Lab Results Component Value Date NA 140 10/16/2020 K 3.5 10/16/2020 CO2 25 10/16/2020 BUN 9 (L) 10/16/2020 CALCIUM 8.7 03/12/2017 Lab Results Component Value Date WBC 6.77 10/16/2020 RBC 4.33 10/16/2020 HGB 13.4 10/16/2020 HCT 37.9 10/16/2020 MCV 88 10/16/2020 MCH 30.9 10/16/2020 MCHC 35.4 10/16/2020 PLT 224 10/16/2020 MPV 9.0 (L) 10/16/2020 Lab Results Component Value Date TSH 1.67 03/12/2017 Lab Results Component Value Date ALKPHOS 47 03/12/2017 AST 15 03/12/2017 ALT 27 03/12/2017 Lab Results Component Value Date CHOL 149 03/12/2017 HDL 42 03/12/2017 TRIG 94 03/12/2017 ASSESSMENT AND RECOMMENDATIONS In summary, Kirsten Almaguer is a 55 y.o. female with PAF post AF RFA performed 10/03/20, RAJ. I focused our evaluation and discussion today on the following problems: 1) PAF post AF RFA performed 10/03/20. Denies any fever, chills. Groin sites well healed, right leg with some ecchymosis down the thigh, soft to touch, strong distal pulses Completing protonix Eliquiss 5mg bid for 3 months-no bleeding issues 2) Mild RAJ-stable. PLAN: Contact the office with any fever, chills. Walking is permitted RTC 04/02/21 Diltiazem pill in the pocket Eliquis for 3 months if no AF I spent a total of 30 minutes on the date of this encounter meeting with the patient and reviewing documentation/coordinating care as described in the above note.This was separate from any proceduresperformed at the time of the visit. Ana Jimenez APRN 10/19/2020 9:33 documented in this encounter Plan of Treatment Upcoming Encounters Date Type Department Care Team (Late st Contact Info) Description 05/20/2024 14:45 EST Office Visit [facility] Adult Primary Care - [place] [address] [place], [place] [phone] Jasmyne Poe MD [address] [place] [phone] documented as of this encounter Visit Diagnoses Diagnosis Paroxysmal atrial fibrillation ([facility])- Primary Atrial fibrillation documented in this encounter Care Teams Digital Sales Director Relationship Specialty Start Date End Date Jasmyne Poe MD [address] [place] [phone] PCP - General 01/07/13 documented as of this encounter
--- OUTSIDE RECORDS SUMMARY | 2023-12-03 02:06 | XMS_ITS | Encounter Summary ---
Author Organization [facility] Address [address] [place] [address] Care Team Providers Care Mobile Home Laborer Name Role Phone Jasmyne Poe MD Primary Care Provider + Reason for Visit * Reason Onset Date Comments Medications Refill 02/03/2023 Encounter Details Date Type Department Care Team (Late st Contact Info) Description 02/03/2023 Refill [facility] Adult Primary Care - [place] [address] [place] [address] Jasmyne Poe MD [address] [place] [phone] Medications Refill Social History Tobacco Use [...] place to sleep or slept in a skilled nursing (including now)? No 10/24/2021 Interpersonal Safety Answer [...] Telephone Encounter - Cassie Bradford RN - 02/04/2023 1520 EDTFrom: Kirsten Almaguer To: Office of Jasmyne Poe MD Sent: 02/03/2023 19:43 EDT Subject: Medication Renewal Request Refills have been requested for the following medications: sertraline (ZOLOFT) 50 mg tablet [Jasmyne Poe] Preferred pharmacy: [address] documented in this encounter Plan of Treatment Upcoming Encounters Date Type Department Care Team (Late st Contact Info) Description 05/20/2024 14:45 EST Office Visit [facility] Adult Primary Care - [address] [phone] Jasmyne Poe MD [address] [place] [phone] documented as of this encounter Visit Diagnoses Not on filedocumented in this encounter Care Teams Mobile Home Laborer Relationship Specialty Start Date End Date Jasmyne Poe MD [address] [place] [phone] PCP - General 01/07/13 documented as of this encounter
--- OUTSIDE RECORDS SUMMARY | 2023-12-03 02:06 | XMS_ITS | Encounter Summary ---
Author Organization [facility] Address [address] [place] [address] Care Team Providers Care Ply Cutter Name Role Phone Jasmyne Poe MD Primary Care Provider + Reason for Visit * Reason Onset Date Comments Medications Refill 01/30/2023 Encounter Details Date Type Department Care Team (Late st Contact Info) Description 01/30/2023 Refill [facility] Adult Primary Care - [place] [address] [place] [address] Jasmyne Poe MD [address] [place] [phone] Medications Refill Social History Tobacco Use [...] Start Date End Da te sertraline (ZOLOFT) 50 mg tablet Take 1 Tablet by mouth daily. 90 Tablet 1 01/30/2023 documented in this encounter Miscellaneous Notes * Telephone Encounter - Arian Treadwell RN - 01/30/2023 2060 EDT Requested Prescriptions Pending Prescriptions Disp Refills ??? sertraline (ZOLOFT) 50 mg tablet 90 Tablet 1 Sig: Take 1 Tablet by mouth daily. [address] Confirmed Pharmacy? Yes Patient out of medication? Unknown Last Refill Date: 02/01/22 Refills left? (explain exceptions requiring early refill) No Recent Visits Date Type Provider Dept 10/24/21 Office Visit Jasmyne Poe MD [facility] Adult Showing recent visits within past 540 days with a meds authorizing provider and meeting all other requirements Future Appointments Date Type Provider Dept 05/19/23 Appointment Jasmyne Poe MD [facility] Adult Showing future appointments within next 150 days with a meds authorizing provider and meeting all other requirements Future appointment: Already Scheduled ARIAN TREADWELL RN 01/30/2023 15:40 * Telephone Encounter - Arian Treadwell RN - 01/30/2023 7980 EDTFrom: Kirsten Almaguer To: Office of Jasmyne Poe MD Sent: 01/30/2023 15:29 EDT Subject: Medication Renewal Request Refills have been requested for the following medications: sertraline (ZOLOFT) 50 mg tablet [Jasmyne Poe] Preferred pharmacy: [facility] - [address] documented in this encounter Plan of Treatment Upcoming Encounters Date Type Department Care Team (Late st Contact Info) Description 05/20/2024 14:45 EST Office Visit [facility] Adult Primary Care - [place] [address] [place], [place] [phone] Jasmyne Poe MD [address] [place] [phone] documented as of this encounter Visit Diagnoses Not on filedocumented in this encounter Discontinued Medications Medication Sig Discontinue Reason Start Date End Da te sertraline (ZOLOFT) 50 mg tablet Take 1 Tablet by mouth daily. Reorder 02/01/2022 01/30/2023 documented as of this encounter Care Teams Ply Cutter Relationship Specialty Start Date End Date Jasmyne Poe MD [address] [place] [phone] PCP - General 01/07/13 documented as of this encounter
--- OUTSIDE RECORDS SUMMARY | 2023-12-03 02:06 | XMS_ITS | Encounter Summary ---
Author Organization [facility] Address [address] [place] [address] Care Team Providers Care Cook Starch Name Role Phone Jasmyne Poe MD Primary Care Provider + Reason for Visit * Reason Onset Date Comments Appointment Related 11/18/2022 Encounter Details Date Type Department Care Team (Late st Contact Info) Description 11/18/2022 Telephone [facility] Adult Primary Care - [address] [address] Jasmyne Poe MD [address] [place] [phone] Appointment Related Social History Tobacco Use [...] place to sleep or slept in a residential (including now)? No 10/24/2021 Interpersonal Safety Answer [...] * Telephone Encounter - Angelica Pat - 11/18/2022 1403 EDT Faxed lab orders to [facility], fax #[phone], for GetxC5G, TSH, CMP, Lipid Profile, Hep C. Patient has appt with Dr. Poe on 12/11/2022. 11/18/2022 JF documented in this encounter Plan of Treatment Upcoming Encounters Date Type Department Care Team (Late st Contact Info) Description 05/20/2024 14:45 EST Office Visit [facility] Adult Primary Care - [address] [address] Jasmyne Poe MD [address] [place] [phone] documented as of this encounter Visit Diagnoses Not on filedocumented in this encounter Care Teams Cook Starch Relationship Specialty Start Date End Date Jasmyne Poe MD [address] [place] [phone] PCP - General 01/07/13 documented as of this encounter
--- OUTSIDE RECORDS SUMMARY | 2023-12-03 02:06 | XMS_ITS | Encounter Summary ---
Author Organization [facility] Address [address] [place] [address] Care Team Providers Care Manager Search Name Role Phone Jasmyne Poe MD Primary Care Provider + Reason for Visit * Reason Onset Date Comments Medications Refill 03/21/2021 Encounter Details Date Type Department Care Team (Late st Contact Info) Description 03/21/2021 Refill [facility] Adult Primary Care - [place] [address] [place] [address] Jasmyne Poe MD [address] [place] [phone] Medications Refill Social History Tobacco Use [...] Tablet by mouth daily. 90 Tablet 1 03/21/2021 09/25/2021 documented in this encounter Miscellaneous Notes * Telephone Encounter - Niesha Milligan RN - 03/21/2021 0805 EST Medication(s) Requested: levothyroxine Preferred Pharmacy: [facility] Is patient out of medication? Unknown Last Refill Date: 08/15/20 Last Visit Date with Ordering Provider: 05/31/20 Next Non-Acute Visit Date Scheduled with Care Team: Yes. NIESHA MILLIGAN RN 03/21/2021 8:05 * Telephone Encounter - Niesha Milligan RN - 03/21/2021 0805 ESTFrom: Kirsten Almaguer To: Office of Jasmyne Poe MD Sent: 03/21/2021 7:50 EST Subject: Medication Renewal Request Refills have been requested for the following medications: levothyroxine (SYNTHROID) 50 mcg tablet [Jasmyne Poe MD] Preferred pharmacy: [address] documented in this encounter Plan of Treatment Upcoming Encounters Date Type Department Care Team (Late st Contact Info) Description 05/20/2024 14:45 EST Office Visit [facility] Adult Primary Care [address] [phone] Jasmyne Poe MD [address] [place] [phone] documented as of this encounter Visit Diagnoses Diagnosis Acquired hypothyroidism- Primary Unspecified hypothyroidism documented in this encounter Discontinued Medications Medication Sig Discontinue Reason Start Date End Da te levothyroxine (SYNTHROID) 50 mcg tabletIndications:Acquired hypothyroidism Take 1 Tab by mouth daily. Reorder 08/15/2020 03/21/2021 documented as of this encounter Care Teams Manager Search Relationship Specialty Start Date End Date Jasmyne Poe MD [address] [place] [phone] PCP - General 01/07/13 documented as of this encounter
--- OUTSIDE RECORDS SUMMARY | 2023-12-03 02:06 | XMS_ITS | Encounter Summary ---
Author Organization [facility] Address [address] [place] [address] Care Team Providers Care Silica Spray Mixer Name Role Phone Jasmyne Poe MD Primary Care Provider + Encounter Details Date Type Department Care Team (Late st Contact Info) Description 04/09/2022 Orders Only [facility] Adult Primary Care - [address] [address] Jasmyne Poe MD [address] [place] [phone] Social History Tobacco Use Types Packs/Day [...] Record ed How often does anyone, toi harvye family, hit, punch or physically hurt you? [...] Visit [facility] Adult Primary Care - [place] [address] [place], [place] [address] Jasmyne Poe MD [address] [place] [phone] documented as of this encounter Procedures Procedure Name Priority Date/Time Associated Diagnosis Comments LIPID PROFILE (INCLUDES CHOLESTEROL, TRIGLYCERIDES, HDL, LDL) Routine 03/19/2022 9:45 EST HEMOGLOBIN A1C Routine 03/19/2022 8:11 EST TSH Routine 03/19/2022 8:03 EST COMPREHENSIVE METABOLIC PANEL (CMP) Routine 03/19/2022 8:03 EST documented in this encounter Results * LIPID PROFILE (INCLUDES CHOLESTEROL, TRIGLYCERIDES, HDL, LDL) (03/19/2022 9:45 EST) Cholesterol, External 242 <200 mg/dL [facility] Comment:H Triglycerides, External 146 <150 mg/dL [facility] HDL, External [facility] LDL, External 162 <100 mg/dL [facility] Comment:H Chol/HDL Ratio, External 51 40 - 60 mg/dL [facility] Fasting?, External [facility] Blood VENOUS BLOOD / Unknown 03/19/2022 9:45 EST Historical Provider CHEMISTRY & BLOOD GAS ORDERABLES [facility] * HEMOGLOBIN A1C (03/19/2022 8:11 EST) Hemoglobin A1C, External 5.9 <5.7 % [facility] Comment:H Est Avg Glucose, External [facility] Blood VENOUS BLOOD / Unknown 03/19/2022 8:11 EST Historical Provider CHEMISTRY & BLOOD GAS ORDERABLES [facility] * TSH (03/19/2022 8:03 EST) TSH, External 1.90 0.36 - 3.74 uIU/mL [facility] Blood VENOUS BLOOD / Unknown 03/19/2022 8:03 EST Historical Provider CHEMISTRY & BLOOD GAS ORDERABLES Performing Organization Address City/[facility]/ZIP Co de Phone Number [facility] * COMPREHENSIVE METABOLIC PANEL (CMP) (03/19/2022 8:03 EST) GFR, Calculated, External 105.94 1.73m2 mL/min [facility] Glucose, Serum, External 116 74 - 106 mg/dL [facility] Comment:H Albumin, External 4.0 3.4 - 5.0 g/dL [facility] Total Alkaline Phosphatase, External 79 46 - 116 U/L [facility] ALT, External 27 14 - 59 U/L [facility] AST, External 15 15 - 37 U/L [facility] BUN, External 15 7 - 18 mg/dL [facility] Calculated Calcium, External [facility] Calcium, External 8.7 8.5 - 10.1 mg/dL [facility] Chloride, External 103 98 - 107 mmol/L [facility] CO2, External 33.2 21.0 - 32.0 mmol/L [facility] Creatinine, External 0.6 0.55 - 1.02 mg/dL [facility] Fasting?, External [facility] Potassium, External 4.2 3.5 - 5.1 mmol/L [facility] Sodium, External 140 136/145 mmol/L [facility] Total Protein, External 7.0 6.4 - 8.2 g/dL [facility] Bilirubin, Total, External 0.5 0.2 - 1.0 mg/dL [facility] Blood VENOUS BLOOD / Unknown 03/19/2022 8:03 EST Historical Provider CHEMISTRY & BLOOD GAS ORDERABLES [facility] documented in this encounter Visit Diagnoses Not on filedocumented in this encounter Care Teams Silica Spray Mixer Relationship Specialty Start Date End Date Jasmyne Poe MD [address] [place] [phone] PCP - General 01/07/13 documented as of this encounter
--- OUTSIDE RECORDS SUMMARY | 2023-12-03 02:06 | XMS_ITS | Encounter Summary ---
Author Organization [facility] Address [address] [place] [address] Care Team Providers Care Cold Reduction Roller Name Role Phone Jasmyne Poe MD Primary Care Provider + Reason for Visit * Reason Onset Date Comments Medications Refill 09/25/2021 Encounter Details Date Type Department Care Team (Late st Contact Info) Description 09/25/[address] [facility] Adult Primary Care - [place] [address] [place] [address] Jasmyne Poe MD [address] [place] [phone] Medications Refill Social History Tobacco Use [...] 1 Tablet by mouth daily. 90 Tablet 09/25/2021 01/09/2022 documented in this encounter Miscellaneous Notes * Telephone Encounter - Milton Islas RN - 09/25/2021 1302 EDT Requested Prescriptions Pending Prescriptions Disp Refills ??? levothyroxine (SYNTHROID) 50 mcg tablet 90 Tablet 1 Sig: Take 1 Table[address] by mouth daily. [facility] [place] [facility] [address] [facility] [address] [place] [address] Last Refill Date: 03/21/21 Last Visit Date with Provider: 05/31/20 Next Non-Acute Visit Date Scheduled with Care Team: Yes. MILTON ISLAS RN 09/25/2021 13:02 * Telephone Encounter - Milton Islas RN - 09/25/2021 1301 EDTFrom: Kirsten Almaguer To: Office of Jasmyne Poe MD Sent: 09/25/2021 12:40 EDT Subject: Medication Renewal Request Refills have been requested for the following medications: levothyroxine (SYNTHROID) 50 mcg tablet [Jasmyne Poe MD] Preferred pharmacy: [address] documented in this encounter Plan of Treatment Upcoming Encounters Date Type Department Care Team (Late st Contact Info) Description 05/20/2024 14:[address] [facility] Adult Primary Care [facility] [address] [place], [place] [phone] Jasmyne Poe MD [address] [place] [phone] documented as of this encounter Visit Diagnoses Diagnosis Acquired hypothyroidism- Primary Unspecified hypothyroidism documented in this encounter Discontinued Medications Medication Sig Discontinue Reason Start Date End Da te levothyroxine (SYNTHROID) 50 mcg tabletIndications:Acquired hypothyroidism Take 1 Tablet by mouth daily. Reorder 03/21/2021 09/25/2021 documented as of this encounter Care Teams Cold Reduction Roller Relationship Specialty Start Date End Date Jasmyne Poe MD [address] [place] [phone] PCP - General 01/07/13 documented as of this encounter
--- OUTSIDE RECORDS SUMMARY | 2023-12-03 02:06 | XMS_ITS | Encounter Summary ---
Author Organization [facility] Address [address] [place] [address] Care Team Providers Care Merchandise Handler Name Role Phone Jasmyne Poe MD Primary Care Provider + Reason for Visit * Reason Onset Date Comments Appointment Related 03/08/2022 Encounter Details Date Type Department Care Team (Late st Contact Info) Description 03/08/2022 Telephone [facility] Adult Primary Care - [address] [address] Jasmyne Poe MD [address] [place] [phone] Appointment Related Social History Tobacco Use [...] in a nursing home (including now)? No 10/24/2021 Interpersonal Safety Answer [...] * Telephone Encounter - Angelica Pat - 03/08/2022 1401 EST Confirmed upcoming appointment with patient on 03/20/2022 at 2:[address] Poe. Asked patient to have fasting labs done prior to the appointment. Patient said the lab orders are still at [facility] from the previous time. She will have them done prior to her appt. documented in this encounter Plan of Treatment Upcoming Encounters Date Type Department Care Team (Late st Contact Info) Description 05/20/2024 14:45 EST Office Visit [facility] Adult Primary Care - [address] [address] Jasmyne Poe MD [address] [place] [phone] documented as of this encounter Visit Diagnoses Not on filedocumented in this encounter Care Teams Merchandise Handler Relationship Specialty Start Date End Date Jasmyne Poe MD [address] [place] [phone] PCP - General 01/07/13 documented as of this encounter
--- OUTSIDE RECORDS SUMMARY | 2023-12-03 02:06 | XMS_ITS | Encounter Summary ---
Author Organization [facility] Address [address] [place] [address] Care Team Providers Care Catheter Finisher And Inspector Name Role Phone Jasmyne Poe MD Primary Care Provider + Reason for Referral * Radiology Services (Routine) - Closed Specialty Diagnoses / Procedures Referred By Contac t Referred To Contact Diagnoses Portal hypertension (HCC-CMS) Procedures US HEPATOPORTAL VEIN DUPLEX US ABDOMEN LIMITED Jasmyne Poe MD [address] [place] [phone] Referral ID Status Reason Start Date Expiration Date Visits Re quested Visits Authorized [id number] Closed 10/19/2020 1 1 Reason for Visit * Radiology Services (Routine) - Closed Specialty Diagnoses / Procedures Referred By Contac t Referred To Contact Diagnoses Portal hypertension (HCC-CMS) Procedures US HEPATOPORTAL VEIN DUPLEX US ABDOMEN LIMITED Jasmyne Poe MD [address] [place] [phone] Referral ID Status Reason Start Date Expiration Date Visits Re quested Visits Authorized [id number] Closed 10/19/2020 1 1 Encounter Details Date Type Department Care Team (Latest Contact Info) Description 11/15/2020 14:02 EDT - 11/15/2020 23:59 EDT Hospital Encounter Medical Center Radiology [facility] [place] [address] [place] [phone] Portal hypertension ([facility]) Discharge Disposition: Home or Self Care Social History Tobacco Use Types Packs/Day Years [...] have Coronavirus / COVID-19? No / Unsure 11/15/2020 13:59 EDT documented as of this encounter Functional [...] No 10/03/2020 documented as of this encounter Medications at Time of Discharge Medication Sig Dispensed Refills Start Date End Date cholecalciferol, Vitamin D3, 2,000 unit tablet Take by mouth. Magnesium 250 mg tablet Take 1 Each by mouth daily. Patient states she takes 500 mg daily apixaban (ELIQUIS) 5 mg tablet Take 1 Tab by mouth 2 times daily. Plan is for you to start eliquis after your cardiac ablation. 60 Tab 2 10/03/2020 01/03/2021 B Complex Vitamins (VITAMIN B COMPLEX) tablet Take 1 Each by mouth daily. 03/23/2022 DILTiazem (CARDIZEM) 30 mg tablet Take 1 Tab by mouth daily as needed for Other. 30 Tab 10/11/2019 12/19/2020 dilTIAZem (TIAZAC) 120 mg SR capsule Take 1 capsule by mouth daily. 30 capsule 3 10/05/2020 10/24/2021 levothyroxine (SYNTHROID) 50 mcg tabletIndications:Acquir ed hypothyroidism Take 1 Tab by mouth daily. 90 Tab 1 08/15/2020 03/21/2021 melatonin 3 mg tablet Take by mouth as needed. 05/19/2023 MULTIVIT &MINERALS/FERROUS FUM (MULTI VITAMIN ORAL) Take by mouth. 10/24 pantoprazole (PROTONIX) 40 mg tablet Take one tablet daily the 3 days prior to your ablation and for 30 days afterwards. 33 Tab 09/30/2020 10/24/2021 documented as of this encounter Discharge Disposition Disposition Code Departure Means Destination Home or Self Care documented in this encounter Plan of Treatment Upcoming Encounters Date Type Department Care Team (Late st Contact Info) Description 05/20/2024 14:45 EST Office Visit [facility] Adult Primary Care - [address] [address] Jasmyne Poe MD [address] [place] [phone] documented as of this encounter Procedures Procedure Name Priority Date/Time Associated Diagnosis Comments US HEPATOPORTAL VEIN DUPLEX Routine 11/15/2020 15:08 EDT Portal hypertension (HCC-CMS) documented in this encounter Results * US HEPATOPORTAL VEIN [...] this encounter Visit Diagnoses Diagnosis Portal hypertension (HCC-CMS) Portal hypertension documented in this encounter Care Teams Catheter Finisher And Inspector Relationship Specialty Start Date End Date Jasmyne Poe MD [address] [place] [phone] PCP - General 01/07/13 documented as of this encounter
--- OUTSIDE RECORDS SUMMARY | 2023-12-03 02:06 | XMS_ITS | Encounter Summary ---
Author Organization [facility] Address [address] [place] [address] Care Team Providers Care Mine Superintendent Name Role Phone Jasmyne Poe MD Primary Care Provider + Reason for Visit * Reason Onset Date Comments Appointment Related 10/12/2021 Encounter Details Date Type Department Care Team (Late st Contact Info) Description 10/12/2021 Telephone [facility] Adult Primary Care - [address] [address] Jasmyne Poe MD [address] [place] [phone] Appointment Related Social History Tobacco Use [...] * Telephone Encounter - Angelica Pat - 10/12/2021 0910 EDT Left message for patient letting her know that the lab orders were faxed this morning to her work place ([phone]), per her request. 10/12/2021. * Telephone Encounter - Angelica Pat - 10/12/2021 0819 EDT Faxed labs to [phone] (patient's work place) per patient's request. She said she will have thelabs done there. Lab orders sent: TSH, CMP, Lipid Profile, Hepatitis C - 10/12/2021 documented in this encounter Plan of Treatment Upcoming Encounters Date Type Department Care Team (Late st Contact Info) Description 05/20/2024 14:45 EST Office Visit [facility] Adult Primary Care - [address] [phone] Jasmyne Poe MD [address] [place] [phone] documented as of this encounter Visit Diagnoses Not on filedocumented in this encounter Care Teams Mine Superintendent Relationship Specialty Start Date End Date Jasmyne Poe MD [address] [place] [phone] PCP - General 01/07/13 documented as of this encounter
--- OUTSIDE RECORDS SUMMARY | 2023-12-03 02:06 | XMS_ITS | Encounter Summary ---
Author Organization [facility] Address [address] [place] [address] Care Team Providers Care Dry Molder Name Role Phone Jasmyne Poe MD Primary Care Provider + Encounter Details Date Type Department Care Team (Late st Contact Info) Description 05/31/2021 Lab Requisition [facility] Pathology & Laboratory Medicine - [facility] [address] [place], [place] [phone] Haydee Garay [address] [place] [address] [place] [phone] Neoplasm of uncertain behavior of skin Social History Tobacco Use Types Packs/Day Years [...] Description 05/20/2024 14:45 EST Office Visit [facility] Adult Primary Care [address] [phone] Jasmyne Poe MD [address] [place] [phone] documented as of this encounter Procedures Procedure Name Priority Date/Time Associated Diagnosis Comments SURGICAL PATHOLOGY Today 05/31/2021 15 :38 EST Neoplasm of uncertain behavior of skin documented in this encounter Results * SURGICAL PATHOLOGY (05/31/2021 15:38 EST) Note to Patient The following pathology results have been interpreted by your pathologist and may be available to you before your health provider has had the opportunity to review them. Please allow time for your provider to receive these results and explore management options, if applicable. 06/04/2021 11:06 [facility] Final Diagnosis A. SKIN OF PRETIBIAL REGION, LEFT PROXIMAL, SHAVE BIOPSY: - Melanocytic nevus, compound type. - Nevus does not extend to edges of shave biopsy specimen in the plane of the sections examined. B. SKIN OF THORACIC SPINE, INFERIOR, SHAVE BIOPSY: - Melanocytic nevus, compound type, with unusual architectural features and mild cytologic atypia. - Nevus present at deep tissue edge. 06/04/2021 11:06 [facility] Attestation By the signature below, the attending physician certifies that they have 1) personally conducted a gross and/or microscopic examination of the described specimen(s), and/or personally interpreted the results of laboratory testing of the described specimen(s), and 2) personally rendered or confirmed the above diagnosis. 06/04/2021 11:06 [facility] at 1106 Microscopic Description A. Sections are of a dome-shaped papule. The epidermis is of normal thickness but has a diminutive rete architecture. The papule is formed by a circumscribed and symmetric compound proliferation of melanocytes. The junctional component consists primarily of nests with single cells at the summit of the papule. The nests are generally small and evenly spaced. The melanocytes are slightly enlarged but have relatively uniform round-oval nuclei and a moderate amount of cytoplasm containing melanin pigment. The dermal component consists of nests, cords, and strands of similar melanocytes showing slab off mill tender maturation with descent. B. The epidermis is hyperplastic with elongate and anastomosing rete ridges. There is a circumscribed proliferation of melanocytes with epidermal and dermal components. The intraepidermal melanocytes are arranged in nests and as individual cells in a lentiginous pattern. The nests predominate and vary in size, shape, and spacing. Some of the nests bridge between rete ridges. Although the individual melanocytes are unevenly spaced in some areas, they show no tendency toward confluent growth or upward migration. The melanocytes are enlarged and show a mild degree of nuclear size and shape variation. The dermal component consists of nests and cords of similar melanocytes that show slab off mill tender maturation with descent. There is papillary dermal fibroplasia. 06/04/2021 11:06 [facility] Clinical History A. Irregular brown macule; DDx: Atypical nevus vs MM; B. Irregular brown macule; DDx: Atypical nevus vs other; clinical diagnosis code: D48.5 06/04/2021 11:06 [facility] Gross Description A. Received in formalin labelled with proper patient identification (initials P, S) and left proximal pretibial region is an irregular skin shave, 0.6 x 0.4 x 0.1 cm. The central skin surface shows a 0.3 cm dark brown macule. The margin is inked. Trisected and entirely submitted in A1. B. Received in formalin labelled with proper patient identification (initials P, S) and inferior thoracic spine is a rubbery irregular pale-barker skin shave, 0.8 x 0.7 x 0.15 cm. The majority of the skin surface shows a mottled dark brown-black macule with irregular borders, 0.6 cm in greatest dimension. The margin is inked. Trisected and entirely submitted in B1. MOSHE BREWSTER(ASCP) 06/01/2021 9:19 06/04/2021 11:06 [facility] Performing Lab [facility] 06/04/2021 11:06 [facility] Scanned Images 06/04/2021 11:06 [facility] Tissue TISSUE SPECIMEN FROM SKIN / Unknown 05/31/2021 15:38 EST 05/31/2021 19:50 EST Tissue specimen (specimen) SPECIMEN FROM SKIN / Unknown 05/31/2021 15:38 EST 05/31/2021 19:50 EST Haydee Garay PATHOLOGY ORDERABLES [facility] [address] [place] [address] documented in this encounter Visit Diagnoses Diagnosis Neoplasm of uncertain behavior of skin documented in this encounter Care Teams Dry Molder Relationship Specialty Start Date End Date Jasmyne Poe MD [address] [place] [phone] PCP - General 01/07/13 documented as of this encounter
--- OUTSIDE RECORDS SUMMARY | 2023-12-03 02:06 | XMS_ITS | Encounter Summary ---
Author Organization [facility] Address [address] [place] [address] Care Team Providers Care Rn Operating Room Name Role Phone Jasmyne Poe MD Primary Care Provider + Reason for Visit * Reason Comments Atrial Fibrillation 6mo FUR s/p 10/03 AF abl Encounter Details Date Type Department Care Team (Late st Contact Info) Description 04/02/2021 9:00 EST Office Visit [facility] Cardiology - [place] [address] Riley Wolf MD [address] [facility], [facility] [address] [place] [address] Paroxysmal atrial fibrillation (HCC-CMS) (HCC) (Primary Dx) Social History Tobacco Use Types [...] Sign Reading Time Taken Comments Blood Pressure 128/62 04/02/2021 0855 EST Pulse 66 04/02/2021 0855 EST Temperature - - Respiratory Rate - - Oxygen Saturation 100% 04/02/2021 0855 EST Inhaled Oxygen Concentration - - Weight 79.4 kg (175 lb) 04/02/2021 0855 EST Height - - Body Mass Index 25.84 10/15/2020 2159 EDT documented in this encounter [...] as of this encounter Progress Notes * Riley Wolf MD - 04/02/2021 0900 EST Hx sx PAF was having episodes about 1/week lasting 12 hours and was sx from the diltiazem so underwent ablation 6 months ago. Since then she has had 3 or 4 episodes of AF lasting about 5 hours. Last episode was in January. She is off apixiban and diltiazem. PE Gen NAD Cor RRR s1s2 no MRG Lungs CTA JVP flat at 90 degrees no bruit AP: We met for 20 minutes more than half of which was spent on counseling. She has a hx of mild sleep apnea and I suggested that she try a dental appliance as it may reduce the likelihood of Af in the future. I think she can follow up on a PRN basis from now on. documented in this encounter Plan of Treatment Upcoming Encounters Date Type Department Care Team (Late st Contact Info) Description 05/20/2024 14:45 EST Office Visit [facility] Adult Primary Care [address] [address] Jasmyne Poe MD [address] [place] [phone] documented as of this encounter Visit Diagnoses Diagnosis Paroxysmal atrial fibrillation (HCC-CMS)- Primary Atrial fibrillation documented in this encounter Historical Medications * This list may reflect changes made after this encounter. Medication Sig Dispensed Refills Start Date End Date vit C/Zn gluc/herbal no.325 (ELDERBERRY ZINC VIT C MM) by mucous membrane route. added in this encounter Care Teams Rn Operating Room Relationship Specialty Start Date End Date Jasmyne Poe MD [address] [place] [phone] PCP - General 01/07/13 documented as of this encounter
--- OUTSIDE RECORDS SUMMARY | 2023-12-03 02:06 | XMS_ITS | Encounter Summary ---
Author Organization [facility] Address [address] [place] [address] Care Team Providers Care Sports Book Board Attendant Name Role Phone Jasmyne Poe MD Primary Care Provider + Reason for Visit * Reason Onset Date Comments Labs Only 10/03/2021 Encounter Details Date Type Department Care Team (Late st Contact Info) Description 10/03/2021 Orders Only [facility] Adult Primary Care - [address] [address] Jasmyne Poe MD [address] [place] [phone] Encounter for hepatitis C screening test for low risk patient (Primary Dx); Encounter for preventive care; Acquired hypothyroidism Social History Tobacco Use Types Packs/Day Years [...] Office Visit [facility] Adult Primary Care - [address] [phone] Jasmyne Poe MD [address] [place] [phone] documented as of this encounter Visit Diagnoses Diagnosis Encounter for hepatitis C screening test for low risk patient- Primary Encounter for preventive care Acquired hypothyroidism Unspecified hypothyroidism documented in this encounter Care Teams Sports Book Board Attendant Relationship Specialty Start Date End Date Jasmyne Poe MD [address] [place] [phone] PCP - General 01/07/13 documented as of this encounter
--- OUTSIDE RECORDS SUMMARY | 2023-12-03 02:06 | XMS_ITS | Encounter Summary ---
Author Organization [facility] Address [address] [place] [address] Care Team Providers Care Contact Lens Curve Grinder Name Role Phone Jasmyne Poe MD Primary Care Provider + Reason for Visit * Reason Comments Follow-up MyChart Televideo: 3 month follow-up Encounter Details Date Type Department Care Team (Late st Contact Info) Description 03/20/2022 14:15 EST Telemedicine [facility] Adult Primary Care - [address] [address] Jasmyne Poe MD [address] [place] [phone] Encounter for preventive health examination (Primary Dx); Acquired hypothyroidism; Mixed hyperlipidemia; Anxiety; Depressed mood; Borderline diabetes Social History Tobacco Use Types Packs/Day Years Used Date Smoking Tobacco: Never Smokeless Tobacco: Never Tobacco Cessation:Counseling Given: Not Answered Comments:a little in high school Alcohol Use Standard Drinks/Week Comments Not Currently [...] in a long term (including now)? No 10/24/2021 Interpersonal Safety Answer Date Record ed How often does anyone, anayany candice family, hit, punch or physically hurt you? Never 10/24/2021 How often does anyone, anayany candice family, insult, scream, curse or threaten to hurt you? Never 10/24/2021 Sex and Gender Information Value Date Recorded Sex Assigned at Not on file Gender Identity Female 06/02/2019 15:13 EST Sexual Orientation Not on file documented as of this encounter Last Filed Vital Signs Vital Sign Reading Time Taken Comments Blood Pressure 134/78 03/20/2022 1412 EST Pulse - - Temperature - - Respiratory Rate - - Oxygen Saturation - - Inhaled Oxygen Concentration - - Weight 83.9 kg (185 lb) 03/20/2022 1412 EST Height - - Body Mass Index 26.79 10/24/2021 1510 EDT documented in this encounter [...] as of this encounter Progress Notes * Kristel Roman - 03/20/2022 1415 EST Primary Care Telephone Visit Service Date: 03/20/2022 Time of phone call: 45 minutes The concept of ???Telemedicine?? has been described to the patient.? Patient has been informed of the anticipated benefits and possible risks.? Patient understands the information provided regardingtelemedicine, has had the opportunity to ask questions about this information, and all questions have been answered to patient???s satisfaction. Patient consents for the use of telemedicine in his/her medical care and authorizes the transmission of any relevant medical information to providers and their staff involved in patient???s medical or mental health care. Reason for Visit: 56 y.o. female with a chief complaint of left knee pain and wishes to discuss most recent lipid panel and CMP. Subjective Ms. Almaguer has experienced a delay in post-operative improvement after left knee arthroplasty. Her PT has focused predominantly on strengthening and she is still limited to 2 miles max walking beforeexperiencing the same pre-operative left knee pain. She is frustrated by the possibility of a revision vs living with a problematic prosthesis. She is concerned by her elevated lipid panel and bicarb of 33.2. She has been eating well overall consuming lean meats, oatmeal with blueberries daily, greens and very little red meat. She is exercising to the limitations of her knee and has remained relatively stable in weight. She plans to try tolose additional weight and work with dietary changes. Her blood pressures have been trending 128-134/70-75. She is unaware of a FMHx concerning for HLD. Her depression has been more manageable after starting Zoloft. She increased to 50 mg daily but experienced adverse symptoms including chest palpitations, dizziness and headache. She has since gone back to 25 mg daily with symptom relief and appropriate management of depression. Her social stressors including complications with her son's health and marital strain still affect her anxiety and depression. She does not want to make any medical changes to address anxiety/depression at this time. 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 [employer] No tobacco use No alcohol consumption Exercise includes PT and strengthening of Lt knee, walking on occasion Diet includes all food groups, attempting oatmeal daily to help lower chol FMHx No changes Review of Systems Denies f/c, light headedness, vision changes, NVM, dysphagia, SOB, increased WOB, chest pains, abdominal discomfort, changes in BM, numbness/tingling She confirms occasional palpitations, much improved s/p ablation Tx, urinary fq and incontinence s/p multiple pregnancies Objective Physical Exam: General: Adult awake, alert, no signs of acute distress HEENT: Anicteric, no conjunctival pallor, MMM Neuro: No focal neurological signs, face symmetrical, no dysarthria, moves extremities symmetrically Psych: Normal mood, affect, behavior Labs: Lipid Panel Component Value Date Cholesterol 242 03/19/2022 Triglyceride 146 03/19/2022 LDL 162 03/19/2022 HDL 51 03/19/2022 Complete Metabolic Panel 03/19/2022 Component Value Date Sodium 140 03/19/2022 Potassium 4.2 03/19/2022 Chloride 103 03/19/2022 CO2 33.2 03/19/2022 BUN 15 03/19/2022 Creatinine 0.6 03/19/2022 Anion Gap 3.8 03/19/2022 Glucose 116 03/19/2022 Calcium 8.7 03/19/2022 eGFR 105.94 03/19/2022 AST 3.8 03/19/2022 ALT 27 03/19/2022 Total Protein 7.0 03/19/2022 Albumin 4.0 03/19/2022 Bilirubin 0.5 03/19/2022 Alk Phos 79 03/19/2022 TSH 1.90 03/19/2022 HbA1C 5.9 03/19/2022 Imaging: - No results found. Assessment 56 y.o. female with PMHx significant for afib (s/p ablation 07/2020), hypothyroidism (on synthroid),anxiety, depression, and osteoarthritis (s/p Lt knee total arthroplasty). She presented with a chief concern over elevated lipid panel with cholesterol 242, triglyceride 146 and LDL stable since NIDA at 162. The ddx for HLD includes decrease in physical activity 2/2 Lt knee total arthroplasty and post-operative complications, postmenopausal lipid changes, and familial although FMHx is minimal and none known related to HLD. Her diet has been well-rounded and is possibly an additional contributingfactor that could benefit from a vegan/vegetarian diet. She is managing her depression, anxiety symptoms well on the zoloft 25 mg daily. She continues to f/u with orthopedics with the knee having a significant impact on well-being. Plan #HLD possibly 2/2 decreased activity Discussed the possibility that lipid panel is abnormal 2/2 menopause. Continues to experience occasional night sweats. - repeat lipids prior to FEB 2510/2022 - repeat CMP prior to FEB 2510/2022 - encouraged exercise and vegan/vegetarian diet #Depression #Anxiety Symptoms currently manageable, not indicating necessity for changes to medical management. - zoloft 25 mg daily - contact the office if concerning changes in mental status #Pre-diabetes 03/19/2022 HgA1c 5.9 - repeat HbA1c in 3 months - encouraged exercise and vegan/vegetarian diet #Osteoarthritis s/p Lt knee total arthroplasty - continue to exercise as tolerated - continue Voltaren gel - continue f/u with orthopedist Continue with follow-up in October 2022 or contact the office sooner if indicated. Kristel Roman [facility] Pager: [phone] 03/20/2022 13:41 * Jasmyne Poe MD - 03/20/2022 2904 EST Primary Care Video Visit Assessment & Plan 56 year old woman here for a video appointment for follow-up of depression and anxiety after re-starting sertraline. 1. She is doing better on the 25 mg dose but did not tolerate the 50 mg dose due to side effects. She does feel that symptoms have improved enough on the 25 mg dose. 2. Also here for follow-up of hyperlipidemia after dietary changes. Lipids are not significantly changed after dietary changes. She will try adding exercise to her routine by using a stationary bike over the winter and then bike outside again in the spring/summer. She will continue the attempts at low cholesterol diet. The estimated ten year risk of cardiovascular disease based on the 2013 ACC/AHA risk calculator is 3%. The results were discussed with the patient and we decided on the following intervention: continue working on lifestyle changes as above. 3. Hypothyroidism: TSH is normal. Continue the levothyroxine 50 mcg daily. 4. She has borderline diabetes. Hemoglobin A1C to be repeated before her October appointment. 5. Follow-up next summer for a wellness visit. Labs entered. Diagnoses and all orders for this visit: Encounter for preventive health examination - LIPID PROFILE (INCLUDES CHOLESTEROL, TRIGLYCERIDES, HDL, LDL) - COMPREHENSIVE METABOLIC PANEL (CMP) Acquired hypothyroidism Mixed hyperlipidemia Anxiety Depressed mood No follow-ups on file. Patient education was direct. Barriers were assessed and addressed as needed. Subjective Kirsten is a 56 y.o. female presenting with Follow-up (Shopcasterideo: 3 month follow-up) HPI Here for follow-up of depressed mood. She was seen with medical student Kristel Roman. Please refer to her note for further details. Kirsten started sertraline since her last appointment. She is currently taking 25 mg. The 50 dosecaused dizziness, headache, palpitations, and insomnia. Her symptoms of depression are much improved even on the 25 mg. She is still experiencing some anxiety but does not feel she needs additional medication. She is more concerned about her cholesterol readings. Does not want to start a statin medication. She is having issues with the knee replacement done in July and exercise is limited but over the summer she was able to bike. She plans to start using a stationary bike over the winter. Her TKR was in July 2021 and done at [facility]. She is still working with PT. A redo surgery was discussed but she is not considering this. Her weight is 185 pounds. Her lowest weight was 178 pounds she made an effort at weight loss when her weight hit 210 pounds in 2019. She eats very little red meat and thinks her diet is good. She is not sure what further changes shecan make to her diet to improve her cholesterol. 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 She has an upcoming appointment in March with Dr. Sandhu. She takes no medications for the disorder. Labs from [facility] dated 03/19/22 Lipids: LDL 162, Triglycerides 146, and HDL 51 CMP normal except for slightly elevated bicarbonate of 33 TSH normal at 1.9 Hemoglobin A1C 5.9 (less than 5.7 is normal) Data reviewed this visit: problem list/past medical history, current medications, allergies, surgical history, family history, social history, last visit note, health maintenance items and recent labs ROS - See HPI TELEMEDICINE VIDEO VISIT Today's visit was provided through telemedicine video conferencing: The location of the patient : Home The location of the provider: Office The following staff and their role did participate in today's encounter visit: Jasmyne Poe MD Consent was obtained from the patient to participate in today's video appointment. Objective BP 134/78 Wt 83.9 kg (185 lb) BMI 26.79 kg/m?? Physical Exam documented in this encounter Plan of Treatment Upcoming Encounters Date Type Department Care Team (Late st Contact Info) Description 05/20/2024 14:45 EST Office Visit [facility] Adult Primary Care - [address] [phone] Jasmyne Poe MD [address] [place] [phone] documented as of this encounter Visit Diagnoses Diagnosis Encounter for preventive health examination- Primary Routine general medical examination at a health care facility Acquired hypothyroidism Unspecified hypothyroidism Mixed hyperlipidemia Anxiety Anxiety state, unspecified Depressed mood Borderline diabetes Other abnormal glucose documented in this encounter Discontinued Medications Medication Sig Discontinue Reason Start Date End Da te azithromycin (ZITHROMAX) 500 mg tablet Take one dose one hour prior to dental procedure Patient Stopped Taking 02/27/2022 03/23/2022 B Complex Vitamins (VITAMIN B COMPLEX) tablet Take 1 Each by mouth daily. Patient Stopped Taking 03/23/2022 documented as of this encounter Care Teams Contact Lens Curve Grinder Relationship Specialty Start Date End Date Jasmyne Poe MD [address] [place] [phone] PCP - General 01/07/13 documented as of this encounter
--- OUTSIDE RECORDS SUMMARY | 2023-12-03 02:06 | XMS_ITS | Encounter Summary ---
Author Organization [facility] Address [address] [place] [address] Care Team Providers Care Motor Checker Name Role Phone Jasmyne Poe MD Primary Care Provider + Reason for Visit * Reason Onset Date Comments Appointment Related 03/07/2023 Encounter Details Date Type Department Care Team (Late st Contact Info) Description 03/07/2023 Telephone [facility] Cardiology - [address] [place] [address] Riley Wolf MD [address] [facility], [address] [place] [address] Appointment Related Social History Tobacco Use Types [...] encounter Miscellaneous Notes * Telephone Encounter - Roxi Vang - 03/07/2023 1512 EST LMOM for patient to return call to 2010, reschedule 03/17 Dr Wolf documented in this encounter Plan of Treatment Upcoming Encounters Date Type Department Care Team (Late st Contact Info) Description 05/20/2024 14:45 EST Office Visit [facility] Adult Primary Care [address] [phone] Jasmyne Poe MD [address] [place] [phone] documented as of this encounter Visit Diagnoses Not on filedocumented in this encounter Care Teams Motor Checker Relationship Specialty Start Date End Date Jasmyne Poe MD [address] [place] [phone] PCP - General 01/07/13 documented as of this encounter
--- OUTSIDE RECORDS SUMMARY | 2023-12-03 02:06 | XMS_ITS | Encounter Summary ---
Author Organization [facility] Address [address] [place] [address] Care Team Providers Care Circular Stuffer Name Role Phone Jasmyne Poe MD Primary Care Provider + Encounter Details Date Type Department Care Team (Latest Contact Info) Description 11/15/2020 Travel Social History Tobacco Use Types Packs/Day [...] Info) Description 05/20/2024 14:45 EST Office Visit [facility] Adult Primary Care [address] [phone] aJsmyne Poe MD [address] [place] [phone] documented as of this encounter Visit Diagnoses Not on filedocumented in this encounter Care Teams Circular Stuffer Relationship Specialty Start Date End Date Jasmyne Poe MD [address] [place] [phone] PCP - General 01/07/13 documented as of this encounter
--- OUTSIDE RECORDS SUMMARY | 2023-12-03 02:07 | XMS_ITS | Encounter Summary ---
Author Organization [facility] Address [address] [place] [address] Care Team Providers Care Oil And Gas Specialist Name Role Phone Jasmyne Poe MD Primary Care Provider + Reason for Visit * Reason Comments Annual Exam no questions or conc erns today * Laboratory Services (Routine) - New Request Specialty Diagnoses / Procedures Referred By Contromeo t Referred To Contact Diagnoses History of vitamin D deficiency Procedures VITAMIN D (25,OH) Jasmyne Poe MD [address] [place] [phone] Referral ID Status Reason Start Date Expiration Date V isits Requested Visits Authorized [id number] New Request 05/23/2020 1 1 Encounter Details Date Type Department Care Team (Late st Contact Info) Description 05/31/2020 13:30 EST Office Visit [facility] Adult Primary Care - [address] [address] Jasmyne Poe MD [address] [place] [phone] Encounter for preventive health examination (Primary Dx); Depression screen; Acquired hypothyroidism; Encounter for screening mammogram for malignant neoplasm of breast; History of vitamin D deficiency; Anxiety Social History Tobacco Use Types Packs/Day Years Used Date Smoking Tobacco: Never Smokeless Tobacco: Never Alcohol Use Standard Drinks/Week Comments Not Currently 0 (1 standard drink = 0.6 oz pur e alcohol) AUDIT-C Answer Date Recorded Q1: How often do you have a drink containing alc ohol? Monthly or less 11/24/2019 Q2: How many drinks containi ng alcohol do you have on a typical day when you are drinking? 1 or 2 11/24/2019 Q3: How often do you have si x or more drinks on one occasion? Not asked 11/24/2019 PHQ-2 Answer Date Recorded PHQ-2 SUBTOTAL 2 05/18/2020 Hunger Vital Sign Answer Date Recorded Worried [...] Sign Reading Time Taken Comments Blood Pressure 140/88 05/31/2020 1325 EST Pulse 68 05/31/2020 1325 EST Temperature 37.3 ??C (99.1 ??F) 05/31/2020 1325 EST Respiratory Rate 16 05/31/2020 1325 EST Oxygen Saturation - - Inhaled Oxygen Concentration - - Weight 78.5 kg (173 lb) 05/31/2020 1325 EST Height 174.5 cm (5' 8.7) 05/31/2020 1325 EST Body Mass Index 25.77 05/31/2020 1325 EST documented in this encounter Functional Status Functional Status Response Date of Assess ment Because of a physical, menta l, or emotional condition, does this person have difficulty doing errands alone such as visiting a doctor's office or shopping? No 02/13/2018 Cognitive Status Response Date of Assessm ent Because of a physical, menta l, or emotional condition, does this person have serious difficulty concentrating, remembering, or making decisions? No 02/13/2018 documented as of this encounter Patient Instructions * Patient Instructions* Jasmyne Poe MD - 05/31/2020 13:30 EST Please contact the gastroenterology department to schedule your colonoscopy appointment at [phone], option #2. documented in this encounter Progress Notes * Jasmyne Poe MD - 05/31/2020 1330 EST Female Well Adult Preventative Care Visit Patient ID: Kirsten Almaguer is an 55 y.o. female. Subjective: HISTORY OF PRESENT ILLNESS: Here for a wellness visit. Patient profile: she is with three children. 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 ??She does not smoke or drink alcohol. ??She takes 10,000 steps a day. She is lost 36 pounds over the past year! Her current BMI is 26. She sees Luke Sandhu from Rheumatology at [facility] for history of positive ALAINA. She does not meet criteria for SLE. She was told she has an undifferentiated connective tissue disorder Joint and muscle pains are better since the weight loss. PAF: She has had 3 episodes since the end of March. Each episode has lasted between 6 and 14 hours. This frequency of symptoms is actually improved. She has now established care with a nurse practitioner in Cardiology. An ablation was discussed if palpitations became worse. Her dose of diltiazem was recently in reduced from 240 to 180 mg due to episodes of bradycardia. She has not yet started the decreased dose. She has not taken any diltiazem dose since Friday however. She stopped the sertraline due to concern that this may have been making the AF worse. She had an echocardiogram repeated due to history of mild to moderately elevated PA pressure on previous and the repeat echo was close to normal. Kirsten just had a sleep study and is waiting for the results. If she does have obstructive sleepapnea, she would have this addressed before doing an ablation. Her last menstrual period was in December. She is now having vasomotor symptoms and sleep difficulty. She would prefer not to use medication other than the melatonin that she is already using. Patient Active Problem List Diagnosis ??? Osteoarthritis ??? Allergy to penicillin ??? Anxiety ??? Acquired hypothyroidism ??? PAF (paroxysmal atrial fibrillation) (HCC-CMS) ??? Obesity, Class I, BMI 30-34.9 ??? Borderline diabetes mellitus ??? Myalgia ??? Abnormal uterine bleeding ??? Undifferentiated connective tissue disease (HCC-CMS) ??? Mild aortic stenosis Past Medical History: Diagnosis Date ??? Anxiety 2003 on zoloft in the past ??? Gestational diabetes 2002 diet and exercise only ??? Hypertension with episdes of anxiety in the past ??? Obesity ??? Palpitations ??? Rotator cuff injury 01/19/2014 Right shoulder Past Surgical History: Procedure Laterality Date ??? SECTION 1985 ??? KNEE ARTHROSCOPY Right 2003 right knee ??? PRE-MALIGNANT / BENIGN SKIN LESION EXCISION right upper back Social History Tobacco Use ??? Smoking status: Never Smoker ??? Smokeless tobacco: Never Used Substance Use Topics ??? Alcohol use: Not Currently Frequency: Monthly or less Drinks per session: 1 or 2 ??? Drug use: No Family History Problem [...] grandmother ??? Heart Attack Other 60 grandfather- [place] ??? Leukemia Son AML Allergies Allergen Reactions ??? Penicillins Anaphylaxis Tolerates cephalexin ??? Sulfa (Sulfonamide Antibiotics) Rash Current Outpatient Medications Medication ??? aspirin chewable 81 mg tablet ??? B Complex Vitamins (VITAMIN B COMPLEX) tablet ??? cholecalciferol, Vitamin D3, 2,000 unit tablet ??? dilTIAZem (CARDIZEM CD) 180 mg ER capsule ??? DILTiazem (CARDIZEM) 30 mg tablet ??? levomefolate calcium (L-METHYLFOLATE ORAL) ??? levothyroxine (SYNTHROID) 50 mcg tablet ??? Magnesium 250 mg tablet ??? melatonin 3 mg tablet ? ? MULTIVIT &MINERALS/FERROUS FUM (MULTI VITAMIN ORAL) No current facility-administered medications for this visit. Review of Systems Constitutional: Negative for chills, diaphoresis, fever and malaise/fatigue. Respiratory: Negative for cough and shortness of breath. Cardiovascular: Positive for palpitations. Negative for chest pain. Gastrointestinal: Negative for abdominal pain, blood in stool, diarrhea, heartburn and nausea. Genitourinary: Negative for dysuria. Musculoskeletal: Negative for joint pain. Skin: Negative for rash. Neurological: Negative for dizziness and headaches. Objective: BP 140/88 Pulse 68 Temp 37.3 ??C (99.1 ??F) (Tympanic) Resp 16 Ht 174.5 cm (68.7) Wt 78.5 kg (173 lb) BMI 25.77 kg/m?? Body mass index is 25.77 kg/m??. Wt Readings from Last 3 Encounters: 05/31/20 78.5 kg (173 lb) 02/08/20 81.2 kg (179 lb) 06/04/19 94.8 kg (209 lb 1.6 oz) Physical Exam General: well-developed, well-nourished woman HEENT: oral mucosa and pharynx: exam deferred. Tympanic membranes are visualized with a good light reflex. Sclerae are clear and non-icteric. Neck: no lymphadenopathy or thyromegaly Breasts: examined in the supine position. No lumps or axillary lymphadenopathy. Lungs: clear in all lung negrete Cardiac: regular without murmur or gallop Abdomen: soft, non-tender, no masses. No hepatomegaly. : PAP is up to date. Extremities: no cyanosis or edema Skin: no rashes Blood work was done at on 05/23/20 Comprehensive metabolic panel was normal except for an elevated glucose of 144 Hemoglobin A1c was normal at 5.6 TSH was normal at 2.27 Vitamin D was normal at 54.9 Assessment: 55 year old woman here for a wellness visit. She is up to date with recommended immunizations. Immunization History Administered Date(s) Administered ??? Historical Influenza Vaccine, Unspecified 02/16/2018 ??? [...] Breast cancer screening:??she??has never had a mammogram??and was reminded again to schedule this. She will have this done at [facility] and mammogram order form printed out. Cervical cancer screening:??Her last Pap smear was February 2019: normal cytology/negative HPV. Repeat 3 to 5 years with her head librarian. She has history of ASGUS with negative HPV in 2016. Colon cancer screening: she??has neve had colonoscopy and is still due for a colonoscopy and agreesto another referral to [facility]. Osteoporosis screening/prevention: she is taking a vitamin D supplement and vitamin D level is normal. Fasting lipids??were normal last year. Given Advanced??Directives paperwork.?? 1. Hypertension: her blood pressure reading is not indicative of current diltiazem use since she has not used it in several days. She will start the decreased dose of 180 mg and monitor readings. 2. Hypothyroidism: TSH is normal 3. History of elevated PA pressure on echo: now improved on repeat echo. PFT's normal. Sleep study results pending. 4. Anxiety: she is managing without the sertraline. 5. PAF: symptoms improved. She will wait for results of sleep study before making a decision about ablation. Plan: As above Follow-up in one year. Kirsten was seen today for annual exam. Diagnoses and all orders for this visit: Encounter for preventive health examination - HEMOGLOBIN A1C - COMPREHENSIVE METABOLIC PANEL (CMP) Depression screen Acquired hypothyroidism - TSH Encounter for screening mammogram for malignant neoplasm of breast - MA BREAST SCREENING CARRIE BILATERAL; Future History of vitamin D deficiency - VITAMIN D (25,OH) Other orders - aspirin chewable 81 mg tablet; Take 81 mg by mouth every 24 hours. No follow-ups on file. References: USPTF Level [...] 05/20/2024 14:45 EST Office Visit [facility] - [place] [address], [place] [id number] Jasmyne Poe MD [address] [place] [phone] documented as of this encounter Procedures Procedure Name Priority Date/Time Associated Diagnosis Comments VITAMIN D (25,OH) Routine 05/23/2020 14: 37 EST History of vitamin D deficiency TSH Routine 05/23/2020 14:37 EST Acquired hypothyroidism HEMOGLOBIN A1C Routine 05/23/2020 14:37 EST Encounter for preventive health examination COMPREHENSIVE METABOLIC PANEL (CMP) Routine 05/23/2020 14:37 EST Encounter for preventive health examination documented in this encounter Results * (ABNORMAL) COMPREHENSIVE METABOLIC PANEL (CMP) (05/23/2020 14:37 EST) GFR, Calculated, External >=60 [facility] Glucose, Serum, External 144 H [facility] Albumin, External 4.1 [facility] Total Alkaline Phosphatase, External 75 [facility] ALT, External 28 [facility] AST, External 17 [facility] BUN, External 15 [facility] Calculated Calcium, External - [facility] Calcium, External 8.8 [facility] Chloride, External 104 [facility] CO2, External 30.0 [facility] Creatinine, External 0.6 [facility] Fasting?, External U [facility] Potassium, External 3.8 [facility] Sodium, External 141 [facility] Total Protein, External 7.2 [facility] Bilirubin, Total, External 0.4 [facility] Blood VENOUS BLOOD / Unknown 05/23/2020 14:37 EST Jasmyne Poe MD CHEMISTRY & BLOO D GAS ORDERABLES Performing Organization Address [facility] Co de Phone Number [facility] * HEMOGLOBIN A1C (05/23/2020 14:37 EST) Hemoglobin A1C, External 5.6 [facility] Est Avg Glucose, External [facility] Blood VENOUS BLOOD / Unknown 05/23/2020 14:37 EST Jasmyne Poe MD CHEMISTRY & BLOO D GAS ORDERABLES Performing Organization Address [facility] Co de Phone Number [facility] * TSH (05/23/2020 14:37 EST) TSH, External 2.27 [facility] Blood VENOUS BLOOD / Unknown 05/23/2020 14:37 EST Jasmyne Poe MD CHEMISTRY & BLOO D GAS ORDERABLES Performing Organization Address [facility] Co de Phone Number [facility] * VITAMIN D (25,OH) (05/23/2020 14:37 EST) 25OH Vitamin D Tot, External 54.9 [facility] Blood VENOUS BLOOD / Unknown 05/23/2020 14:37 EST Jasmyne Poe MD CHEMISTRY & BLOO D GAS ORDERABLES Performing Organization Address City/[facility]/ZIP Co de Phone Number [facility] documented in this encounter Visit Diagnoses Diagnosis Encounter for preventive health examination- Primary Routine general medical examination at a health care facility Depression screen Screening for depression Acquired hypothyroidism Unspecified hypothyroidism Encounter for screening mammogram for malignant neoplasm of breast Other screening mammogram History of vitamin D deficiency Personal history of nutritional deficiency Anxiety Anxiety state, unspecified documented in this encounter Historical Medications * This list may reflect changes made after this encounter. Medication Sig Dispensed Refills Start Date End Date aspirin chewable 81 mg tablet Take 81 mg by mouth every 24 hours. 09/29/2019 10/04/2020 added in this encounter Care Teams Oil And Gas Specialist Relationship Specialty Start Date End Date Jasmyne Poe MD [address] [place] [phone] PCP - General 01/07/13 documented as of this encounter
--- OUTSIDE RECORDS SUMMARY | 2023-12-03 02:07 | XMS_ITS | Encounter Summary ---
Author Organization [facility] Address [address] [place] [address] Care Team Providers Care Drift Miner Name Role Phone Jasmyne Poe MD Primary Care Provider + Reason for Visit * Auth/Cert Specialty Diagnoses / Procedures Referred By Meka james Referred To Contact Diagnoses Paroxysmal atrial fibrillation (HCC-CMS) Paroxysmal atrial fibrillation (HCC-CMS) [I48.0] Procedures VA EPHYS EVL TRNSPTL TX ATRIAL FIB ISOLAT PULM VEIN VA ECHO TRANSESOPHAG IMAGE ACQUISJ INTERP&REPORT James Barrera MD [address] [place] [phone] James Barrera MD [address] [place] [phone] Referral ID Status Reason Start Date Expiration Date Visits Re quested Visits Authorized [id number] 07/17/2020 1 1 Encounter Details Date Type Department Care Team (Late st Contact Info) Description 10/03/2020 8:00 EDT - 10/03/2020 12:30 EDT Surgery [place] [address] EP Lab [address] [place] [address] James Barrera MD [address] [facility], Level [address] [place] [phone] Ablation A-Fib [71228 (CPT??)] Surgery Details Date/Time Status Location OR Service Patient Class Case Class Case Type Trauma Case? 10/03/20 0800 Posted [facility] EP Lab EP Lab 1 Cardiovascular Extended Stay H - Elective Panel 1 Procedure LRB Anes Op Region Wound Class Comments Ablation A-Fib N/A General Chest Surgeon Surgeon Role Service Panel James Barrera MD Primary Cardiovascular 1 Esau Faulkner MD Fellow Electrophysiology 1 documented in this encounter Social History Tobacco Use Types Packs/Day Years Used Date Smoking Tobacco: Former Smokeless Tobacco: Never Comments:a little in high [...] have Coronavirus / COVID-19? No / Unsure 10/03/2020 6:27 EDT documented as of this encounter Last Filed Vital Signs Vital Sign Reading Time Taken Comments Blood Pressure 124/58 10/03/2020 1230 EDT Pulse 63 10/03/2020 0700 EDT Temperature 36.3 ??C (97.3 ??F) 10/03/2020 1200 EDT Respiratory Rate 11 10/03/2020 1230 EDT Oxygen Saturation 100% 10/03/2020 1230 EDT Inhaled Oxygen Concentration - - Weight 80.9 kg (178 lb 5.6 oz) 10/03/2020 0700 E DT Height 175.3 cm (5' 9.02) 10/03/2020 0700 EDT Body Mass Index 26.33 10/03/2020 0700 EDT documented in this encounter Functional Status [...] No 10/03/2020 documented as of this encounter Discharge Summaries * Latoya Alcazar APRN - 10/03/2020 1159 EDT Cardiology Discharge Summary Primary Care Provider: Jasmyne Poe Attending Physician: Randy Morillo* Admit Date: 10/03/2020 Discharge Date: 10/04/20 Disposition: Home or self care Problems and Procedures Admitting Diagnosis: Paroxysmal atrial fibrillation Final Hospital Diagnosis: Paroxysmal atrial fibrillation Additional Problems Managed in the Hospital Active Hospital Problems Diagnosis Date Noted ??? *Paroxysmal atrial fibrillation ([facility]) 07/21/2020 Added automatically from request for surgery [id number] Resolved Hospital Problems No resolved problems to display. Principal Procedure: AF Ablation - Enc/isolation of RPVs and LPVs Date: 10/03/2020 AF Ablation Maryann/Lucie/Fernando Baseline - Sinus Cycle Length 900 ms Access - R fem V: 8.5Fx2 L fem V: 8.5,7Fx2 Intervals - AH: 70 HV: 40 Transseptal (SL1) x2 RAP: 12/8 m 9mmHg LAP: 18/9 m 12mmHg ??Carto Map LA/PVs Enc/isolation RPVs Enc/isolation LPVs Sinus rhythm at end of case. Complications: none apparent. Plan: - Admit to MR4 - Bedrest 3h - start apixaban - continue PRN dilt - Scheduled toradol - PPI x30d Esau Faulkner MD Cardiac Electrophysiology Fellow 10/03/2020 11:38 ?? Secondary Procedures: Not applicable Hospital Course Ms. Kirsten Rocha is a 55 year old female with a past medical history significant for paroxysmalatrial fibrillation not on anticoagulation (chads-vasc 1 - age), sinus node dysfunction, hypothyroidism, previous hypertension (resolved with weight loss), mild RAJ who was admitted on 10/03/20 for planned atrial fibrillation ablation. She has had more frequent and longer [...] [facility] move forward with afib ablation. She underwent an atrial fib ablation characterized [...] for three months following the procedure. Discontinue [id number] mg daily. Will be taking Pantoprazole 40 mg daily for the next 30 days for esophageal protection post ablation - Appointment in 2 weeks for a post procedure check with Lis Jimenez APRN at 8:40 am on 10/18/20 - [employer] [facility] - Cardiology post ablation follow up on 04/02/[address] James Barrera at the cardiology clinic of [facility] Allergies and Immunizations Allergies Allergen Reactions ??? Penicillins Anaphylaxis Tolerates cephalexin ??? Sulfa (Sulfonamide Antibiotics) Rash Immunization History Administered Date(s) Administered ??? Historical Influenza Vaccine, Unspecified 02/16/2018 ??? Influenza Vaccine Quad (AFLURIA) PF 0.5 ml IM (3 yrs+) 01/21/2014, 02/15/2015, 01/27/2017, 02/25/2018, 02/09/2019, 02/16/2020 ??? Influenza Vaccine Recomb Quad RIV4 (FLUBLOK) PRSRV/ABX Free 0.5 ml IM (18 yrs+) 02/15/2019 ??? MMR Vaccine SQ 01/03/2009 ??? PPD Skin Test Placement 12/20/2008, 01/03/2009 ? ? Tdap Vaccine =>7YO IM 12/20/2008, 05/25/2018 Transition of Care Plans Condition at Discharge Improved Assessment at Discharge Vital signs: Patient Vitals for the past 12 hrs: BP Pulse Heart Rate Resp Temp SpO2 O2 Device 10/04/20 0743 (!) 144/72 70 67 BPM 18 35.9 ??C (96.6 ??F) 96 % None 10/04/20 0507 136/76 -- 70 BPM 16 36.6 ??C (97.9 ??F) 98 % None 10/04/20 0110 136/63 -- 67 BPM 16 36.7 ??C (98.1 ??F) 99 % None Is the patient being discharged with a diagnosis of Systolic Heart Failure? No Cardiac Studies Date of study: 10/14/2019 Transthoracic Echocardiography M-mode, complete 2D, complete spectral Doppler, and color Doppler *STUDY CONCLUSIONS* Summary: 1. Left ventricle: The cavity size was [...] normal. PA peak pressure: 36mm Hg (S). Coumadin Management N/A Results Pending at Discharge Test results still pending from this admission None Last Lab Results at Discharge BUN: Lab Results Component Value Date BUN 14 10/03/2020 Creatinine: Lab Results Component Value Date CREATININE 0.53 10/03/2020 CBC: Lab Results Component Value Date WBC 5.30 10/03/2020 RBC 4.36 10/03/2020 HGB 13.3 10/03/2020 HCT 38.1 10/03/2020 MCV 87 10/03/2020 MCH 30.5 10/03/2020 MCHC 34.9 10/03/2020 PLT 208 10/03/2020 Electrolytes: Lab Results Component Value Date NA 144 10/03/2020 K 4.0 10/03/2020 CL 103 10/03/2020 CO2 29 10/03/2020 INR: Lab Results Component Value Date INR 1.1 10/03/2020 PROTIME 12.8 (H) 10/03/2020 Lipid Profile: Lab Results Component Value Date CHOL 149 03/12/2017 TRIG 94 03/12/2017 HDL 42 03/12/2017 LDLBASE 88 03/12/2017 CHOLHDL 3.5 03/12/2017 Lab Results Component Value Date HGBA1C 5.7 05/21/2017 Discharge Follow Up Appointments Scheduled with [facility] Upcoming Appointments Oct 18, 2020 8:40 Post Hospital Visit with Ana Jimenez APRN [facility] Cardiology [facility] (--) [address] [place] [address] [place] [address] Post Procedure Appointments 1. POST PROCEDURE FOLLOW-UP APPOINTMENT With: ANA JIMENEZ APRN on GREGORIO 30TH, 2021 at 8:40AM at the [address] [place] [address] Cardiology Clinic in [place]. PHONE: [phone] 2. SIX MONTH FOLLOW UP APPOINTMENT With: Dr. JAMES BARRERA on March at 9:00AM at the [address] [place] [address] Cardiology Clinic in [place]. PHONE: [phone] Latoya Alcazar APRN 10/04/2020 10:35 Associated attestation - Randy Morillo MD - 10/04/2020 6067 EDT Attestation statement: Supervising Physician. I saw and examined Ms. Rocha on morning rounds with a cardiac EP service on October 04, 2020. I agree with the discharge summary as outlined below. documented in this encounter Discharge Instructions * Discharge Instr - Other Orders* Latoya Alcazar APRN - 10/03/2020 11:53 EDT Discharge Instructions for A-fib Ablation Patients 1. Wound Care: You may remove the Band-Aids/Dressings from the sites the next morning You may shower the following day. No tub bathing for seven days. This includes hot tubs and pools. A small lump the size of a dime may occur at the site, this is normal and should absorb on its own. 2. Call your physician or nurse if: You develop drainage, redness, or swelling at any of the sites You develop a fever or chills You develop increased tenderness and/or increased bruising over sites which doesn't resolve in 2 days Please go to the closest hospital if either of the groin puncture sites bleeds (a hematoma) or if it is painful to stand You develop a persistent and/or productive cough Your symptoms reoccur Pain or difficulty swallowing associated with flu like symptoms, fever or chills within the first 4weeks following the procedure. If you go back into Afib and stay in Afib please call your Tank Builder Supervisor before 24 hours are up. If you don't feel well, lightheaded, dizzy, short of breath, chest pain or pressure then please go to the closest ED. 3. Activity: You can resume your normal activities in two weeks unless you have been instructed otherwise If you are traveling by car or airplane in the next week, you will need to stand and move around every 2 hours to promote circulation No vigorous activity for 2 weeks. Avoid running, squatting and heavy lifting (>10 lbs) during this time period. You may resume driving after 48 hours unless instructed otherwise You may return to work after 5 days if your work demands are not physical. If your job entails strenuous activity, a two week waiting period is recommended. 4. Medications: Resume prior medications unless otherwise instructed Reduce diltiazem ER dose to 120 mg daily (previously 180 mg) Continue diltiazem immediate release 30 mg as needed for atrial fibrillation. Start anticoagulation with apixaban 5 mg BID following your procedure and continue uninterrupted for three months following the procedure Stop taking aspirin 81 mg daily. Will be taking Pantoprazole 40 mg daily for the next 30 days for esophageal protection post ablation 5. Appointments: Post Procedure Appointments POST PROCEDURE FOLLOW-UP APPOINTMENT With: ANA JIMENEZ APRN on September at 8:40AM at the [address] [place] [address] Cardiology Clinic in [place]. PHONE: [phone] SIX MONTH FOLLOW UP APPOINTMENT With: Dr. JAMES BARRERA on March at 9:00AM at the [address] [place] [address] Cardiology Clinic in [place]. PHONE: [phone] Should the above appointment(s) not be convenient, please call at the number(s) listed above to re-schedule to a time that works for you. We are here to help, so should you need assistance feel free to call anyone listed below with questions. EP Procedure Fiber Drier Operator - [phone] Clinic nurse for medication questions - [phone] If you have any questions or concerns, please don't hesitate to call the [facility] [place] [phone] (or dial [phone]) documented in this encounter Medications at Time of Discharge [...] 09/30/2020 10/24/2021 documented as of this encounter Ordered Prescriptions Prescription Sig Dispensed Refills Start Date End Da te dilTIAZem (TIAZAC) 120 mg SR capsule Take 1 capsule by mouth daily. 30 capsule 3 10/05/2020 10/24/2021 documented in this encounter Discharge Disposition Disposition Code Departure Means Destination Home or Self Half-Way documented in this encounter Progress Notes * Maya Carter RN - 10/03/2020 0735 EDT Have you had any of the following symptoms? Fever YES/NO: No Cough/Chest congestion/Difficulty breathing YES/NO: No Sore throat or loss of taste / smell?YES/NO: No Chills YES/NO: No Joint Pain or weakness YES/NO: No Vomiting, abdominal pain, diarrhea YES/NO: No Severe headache YES/NO: No Bruising or bleeding YES/NO: No Rash or red eyes YES/NO: No Have you had known exposure or close contact with someone who has been diagnosed with Covid 19? (close contact, within 6 feet of any person known to have Coronavirus in the past 14 days) YES/NO: No Temperature: 36.7 taken in the CVU. (>38.0 C is considered a fever) RNs to explain visitor policy: yes documented in this encounter H&P Notes * Esau Faulkner MD - 10/02/2020 1626 EDT Electrophysiology Cardiology Ablation H&P PCP: Jasmyne Poe Date of Service: 10/03/2020 Chief Complaint: AF HPI The patient is a 55 yo woman with PAF (chads-vasc 1 for female, ?prev hx HTN but lost weight). Patient has been having longer episodes of AF recently (up to 12- 18 hours) with chest pressure, SOB, rapid palpitations. She saw Drs. Barrera and Esther in 07/17/20 and opted for AF ablation. She is planning to start apixaban after her procedure. Last episode of AF was 09-25-20. She has SND limiting rate control options. She takes dilt immediate release PRN but no long acting AV luis fernando blockers. [facility] at [facility]. Past Medical History: Past Medical History: Diagnosis Date ??? A-fib ([facility]) paroxysmal , currently on diltiazem ??? Anxiety 2003 on zoloft in the past ??? Aortic valve disease mild stenosis ??? History of epidural anesthesia and spinal , w/o issue ??? History of gestational diabetes resolved w/ diet and exercise ??? Hypertension with episdes of anxiety in the past ??? Hypothyroidism tx w/ meds ??? Rheumatoid arthritis ([facility]) poss. she is currently being seen by rheumatology - gets occas flare-ups ??? Rotator cuff injury 01/19/2014 Right shoulder ??? Sleep apnea tested , no treatment recommended Past Surgical History: Past Surgical History: Procedure Laterality Date ??? SECTION 1985 ??? KNEE ARTHROSCOPY Right 2002 right knee ??? PRE-MALIGNANT / BENIGN SKIN LESION EXCISION right upper back Social History: Social History Tobacco Use ??? Smoking status: Former Smoker ??? Smokeless tobacco: Never Used ??? Tobacco comment: a little in high school Substance Use Topics ??? Alcohol use: Not Currently ??? Drug use: No Home Medications: No current facility-administered medications on file prior to encounter. Current Outpatient Medications on File Prior to Encounter Medication Sig Dispense Refill ??? aspirin chewable 81 mg tablet Take 81 mg by mouth every 24 hours. (Patient not taking: Reportedon 10/03/2020) ??? B Complex Vitamins (VITAMIN B COMPLEX) tablet Take 1 Each by mouth daily. ??? cholecalciferol, Vitamin D3, 2,000 unit tablet Take by mouth. ??? dilTIAZem (CARDIZEM CD) 180 mg ER capsule Take 1 Cap by mouth daily. 90 Cap 3 ??? DILTiazem (CARDIZEM) 30 mg tablet Take 1 Tab by mouth daily as needed for Other. (Patient not taking: Reported on 10/03/2020) 30 Tab 0 ??? levomefolate calcium (L-METHYLFOLATE ORAL) Take 15 mg by mouth daily. (Patient not taking: Reported on 10/03/2020) ??? Magnesium 250 mg tablet Take 1 Each by mouth daily. ??? melatonin 3 mg tablet Take by mouth at bedtime. ? ? MULTIVIT &MINERALS/FERROUS FUM (MULTI VITAMIN ORAL) Take by mouth. Allergies: Allergies Allergen Reactions ??? Penicillins Anaphylaxis Tolerates cephalexin ??? Sulfa (Sulfonamide Antibiotics) Rash Review of Systems Pertinent positives: See HPI The remainder of the 10 point review of systems is negative. Physical Exam Blood pressure (!) 159/77, pulse 63, temperature 36.7 ??C (98.1 ??F), temperature source Temporal, resp. rate 20, height 175.3 cm (69.02), weight 80.9 kg (178 lb 5.6 oz), SpO2 100 %. Gen: NAD Neck: no JVD Pulm: CTAB CV: RRR Skin: warm, dry Neuro: awake, alert Psych: cooperative Labs CBC: Lab Results Component Value Date WBC 5.30 10/03/2020 HGB 13.3 10/03/2020 HCT 38.1 10/03/2020 MCV 87 10/03/2020 PLT 208 10/03/2020 BMP: Lab Results Component Value Date NA 144 10/03/2020 K 4.0 10/03/2020 KEXT 3.8 05/23/2020 CL 103 10/03/2020 CLEXT 104 05/23/2020 CO2 29 10/03/2020 CO2EXT 30.0 05/23/2020 Lab Results Component Value Date BUN 14 10/03/2020 Lab Results Component Value Date CREATININE 0.53 10/03/2020 Coags: Lab Results Component Value Date INR 1.1 10/03/2020 PROTIME 12.8 (H) 10/03/2020 No results found for: PTT TTE 10/14/19 - LVEF 60-65%, very mild . CT Pulmonary Vein Protocol: reviewed Assessment and Plan: Symptomatic PAF, SND limiting av luis fernando blockade Plan to proceed with EP study/ablation +/- MAG Anticoagulation:apixaban to start after Antiarrhythmics:na AV Luis Fernando Blocking:dilt PRN only This procedure has been fully reviewed with the patient and written informed consent has been obtained. PATIENT CONSENT TO ATRIAL FIBRILLATION ABLATION WITH TRANSESOPHAGEAL ECHOCARDIOGRAM The patient has been informed and understands the information and situation provided to them about the procedure. They have capacity and ability to weigh risks, goals and benefits as well as the alternatives of proposed treatments including the option of not undergoing the procedure. The patient has expressed their rationale and executed the choice to proceed forward with the procedure with no undue influence or coercion. If the patient is DNR, a required reconsideration has been completed? N/A As part of the consent we reviewed that, like surgical procedures, interventional procedures require aggressive short term support to determine the potential benefits of the procedures. For this reason, the patient (or responsible republican) has agreed to remain FULL CODE for a minimum of 48 hours after the procedure. We discussed potential risks of MAG which include (but are not limited to): trauma during insertionand esophageal perforation. I discussed atrial fibrillation ablation procedure risks and benefits. The patient demonstrates good understanding and would be willing to proceed. We specifically discussed that the risks include but are not limited to bleeding, vascular injury, cardiac perforation, stroke, phrenic nerve injury, atrial esophageal fistula, damage to the mitral valve, pulmonary vein stenosis and atrial tachycardia. We quoted a few percent risk of complication with this procedure. We reviewed the success rate of a single procedure and the potential need for more than one procedure as well as use of antiarrhythmic drugs. Esau Faulkner MD 10/03/2020 8:13 Cardiac Electrophysiology Fellow Associated attestation - James Barrera MD - 10/20/2020 1140 EDT I have seen and examined the patient and agree with the above history and physical exam and assessment and plan. James Barrera MD documented in this encounter Procedure Notes * Esau Faulkner MD - 10/03/2020 1137 EDTProcedure(s): ABLATION A-FIB Pre-Procedure Diagnose(s): PAF (paroxysmal atrial fibrillation) ([facility]) AF Ablation Maryann/Lucie/Fernando ?? Baseline - Sinus Cycle Length 900 ms Access - R fem V: 8.5Fx2 L fem V: 8.5,7Fx2 Intervals - AH: 70 HV: 40 Transseptal (SL1) x2 RAP: 12/8 m 9mmHg LAP: 18/9 m 12mmHg ?? Carto Map LA/PVs Enc/isolation RPVs Enc/isolation LPVs ?? Sinus rhythm at end of case. Complications: none apparent. ?? Plan: - Admit to MR4 - Bedrest 3h - start apixaban - continue PRN dilt - Scheduled toradol - PPI x30d ?? Esau Faulkner MD Cardiac Electrophysiology Fellow 10/03/2020 11:38 Associated attestation - James Barrera MD - 10/20/2020 1140 EDT I was present for the cotton and critical portions of the procedure. documented in this encounter Miscellaneous Notes * Plan of Care - Candy Sr - 10/04/2020 1144 EDT [id number] Tripp Kirsten 55 y.o. female Length of Stay: 0 day(s) Admitted: 10/03/2020 6:29 Service: Cardiology Code Status: Full Code 14:31-- D: Discharge order written by treatment team. A: After Visit Summary printed for Kirsten to review. Intact IV access removed; Telemetry discontinued; Prescriptions called/faxed to pharmacy Reviewed medication schedule & clarified today's medications, Follow-up appointments reviewed. Post ablation precautions and considerations discussed, learner knowledge validated R: Patient is pain-free, ablation sites are CDI, +CSMTs and pulses, neurologically intact, has no further questions, and states she understands discharge instructions. Signed copy of AVS received. * Plan of Care - Sharon Rios RN - 10/04/2020 0635 EDT Blood pressure 136/76, pulse 63, temperature 36.6 ??C (97.9 ??F), temperature source Tympanic, resp. rate 16, height 175.3 cm (69.02), weight 80.9 kg (178 lb 5.6 oz), SpO2 98 %. Data: Pt admitted on 10/03/20 for elective afib ablation via RFV, LFV, and LRA. Pt is A/Ox3, independent for all ADLs. Pt endorses 1/10 right groin discomfort for majority of evening, declines interventions however. Action: LFV site with slow ooze, outlined. RFV site CDI with tegaderm to cover, LRA site CDI with pressure dressing in place. +CSMTs, +pulses, neuros WNL. Eliquis initiated last evening, anticoagulation booklet given to patient and extended education given, teachback performed by pt. Response: VSS, afebrile, on room air. Remains in NSR/SB 50-60 overnight. Slept well. Planning to D/C today. SHARON RIOS RN 10/04/2020 6:35 * Plan of Care - Michell Erazo RN - 10/03/2020 1837 EDT Problem: Daily Care Plan Goals Goal: Care Plan Documentation 10/03/20201830 by Michell Erazo RN Outcome: Met This Shift Flowsheets (Taken 10/03/2020 1406) Area of Focus: Circulatory Status Goal This Shift: vss Data: S/P /A-fib ablation- bilateral groin sites intact with left groin site oozing. + CSMT's &+ neuro's. Pt alert & oriented x 3 with complaints of 1/10 right groin pain. Pt on RA with clear lungs. VSS Pt is A-fib with HR 60's. BP 134/75 (BP Patient Position: Standing) Pulse 63 Temp 36.1 ??C (97 ??F) Resp 14 Ht 175.3 cm (69.02) Wt 80.9 kg (178 lb 5.6 oz) SpO2 99% BMI 26.33 kg/m?? Action: Pressure applied to left groin for 20 mins & clean dressing applied. Toradol 15 mg IV & Eliquis 5 mg started. Encouraged fluids & rest. Monitor telemetry & VS per protocol Response: Pt states she is feeling fine MICHELL ERAZO RN 10/03/2020 18:31 10/03/2020 1822 by Michell Erazo RN Outcome: Met This Shift documented in this encounter Plan of Treatment Upcoming Encounters Date Type Department Care Team (Late st Contact Info) Description 05/20/2024 14:45 EST Office Visit [facility] Adult Primary Care - [address] [phone] Jasmyne Poe MD [address] [place] [phone] documented as of this encounter Procedures Procedure Name Priority Date/Time Associated Diagnosis Comments ECG REPORT - SCANNED 10/06/2020 14:48 EDT ECG REPORT - SCANNED 10/06/2020 14:48 EDT ECG REPORT - SCANNED 10/03/2020 17:54 EDT EKG 12-LEAD Routine 10/03/2020 13:14 EDT EP DIAGNOSTIC STUDY Routine 10/03/2020 1 1:52 EDT Paroxysmal atrial fibrillation (HCC-CMS) POCT ACTIVATED CLOTTING TIME, KAOLIN ISTAT Routine 10/03/2020 11:23 EDT POCT ACTIVATED CLOTTING TIME, KAOLIN ISTAT Routine 10/03/2020 10:44 EDT POCT ACTIVATED CLOTTING TIME, KAOLIN ISTAT Routine 10/03/2020 10:03 EDT PROTIME STAT 10/03/2020 7:27 EDT COMPLETE BLOOD COUNT STAT 10/03/2020 7:27 EDT TYPE AND SCREEN Routine 10/03/2020 7:27 EDT QUANT BETA HCG, STAT 10/03/2020 7:27 EDT BUN STAT 10/03/2020 7:27 EDT CREATININE STAT 10/03/2020 7:27 EDT ELECTROLYTES STAT 10/03/2020 7:27 EDT documented in this encounter Results * ECG REPORT - SCANNED (10/06/2020 14:48 EDT) 10/06/2020 14:4 8 EDT Scan 2 Sack Filler PROCEDURE/MINOR BRENDA GICAL ORDERABLES * ECG REPORT - SCANNED (10/06/2020 14:48 EDT) 10/06/2020 14:4 8 EDT Scan 2 Sack Filler PROCEDURE/MINOR BRENDA GICAL ORDERABLES * ECG REPORT - SCANNED (10/03/2020 17:54 EDT) 10/03/2020 17:5 4 EDT Scan 2 Sack Filler PROCEDURE/MINOR BRENDA GICAL ORDERABLES * EKG 12-LEAD (10/03/2020 13:14 EDT) 10/03/2020 13:1 4 EDT Narrative [facility] EKG - 10/03/2020 17:48 EDT ? [facility] ? Test Date: ?2020-10-03 Pat Name: ? KIRSTEN ROCHA ? Department: ?? PACU ? Room: ? OR Gender: ? Female ? Sanitary Plumber: ?? [id number] : ?1965 ? Requested By: LUCIE MARINELLI Order Number: [id number] ? Reading : ?? LUKE STAPLETON MD ? Measurements Intervals ?[place] ? Rate: ? 54 ? P: ?74 VA: ? 166 ?QRS: ?53 QRSD: ? 89 ? T: ?37 QT: ? 431 ? QTc: ?411 ? Interpretive Statements SINUS BRADYCARDIA No previous ECG available for comparison I reviewed the tracing and have either agreed or edited the findings in this report. Electronically Signed On 10-03-2020 17:48:10 EDT by LUKE STAPLETON MD. Procedure Note Luke Stapleton MD - 10/03/[address] [facility] Test Date: 2020-10-03 Pat Name: KIRSTEN ROCHA Department: PACU Room: OR Gender: Female Sanitary Plumber: [id number] : 1965 Requested By: LUCIE MOORE Order Number: [id number] Reading MD: LUKE STAPLETON MD Measurements Intervals Jackson Rate: 54 P: 74 VA: 166 QRS: 53 QRSD: 89 T: 37 QT: 431 QTc: 411 Interpretive Statements SINUS BRADYCARDIA No previous ECG available for comparison I reviewed the tracing and have either agreed or edited the findings inthis report. Electronically Signed On 10-03-2020 17:48:10 EDT by LUKE SHANNON. Esau Faulkner MD CARDIAC ECG ORDERAB LES [facility] EKG * ABLATION A-FIB (10/03/2020 11:52 EDT) Anatomical Region Laterality Modality Cardiac Electrop hysiology 10/03/2020 8:00 EDT Narrative 10/09/2020 8:18 EDT *Cardiology* [address] [place] [address] Electrophysiology Study with Ablation Patient: Kirsten Rocha ? Study Date: ?10/03/2020 ?Accession #: ? [id number] : ? 1965 Referring: Attending: James Barrera Fellow: ?Esau Faulkner MD Assisting: Marciano King RN Copies: ATTESTATION: I, Dr. Esau Faulkner was the initial author of this report. Dr. James Barrera was present and supervising for the entire procedure, I, Dr.Peter Rebekah Barrera have reviewed and agree with the findings in this report. SUMMARY OF PROCEDURE: - Baseline rhythm sinus rhythm. - Successful pulmonary vein isolation. - At the conclusion of the procedure the patient was in sinus rhythm. - There were no complications. HISTORY AND INDICATIONS: ??Non-valvular atrial fibrillation. Transesophageal echocardiography was performed. Pre-procedure MAG was negative for left atrial thrombus. ANESTHESIA: General anesthesia for pain control. PROCEDURE: The risks, benefits, and alternatives to the procedure were explained and informed consent was obtained. The patient name, date of , surgical site, and procedure were verified prior to the procedure. The patient was brought to electrophysiology laboratory in the fasting state. The groin was prepped and draped in the usual sterile manner. The right femoral vein and left femoral vein were entered under fluoroscopic guidance with the modified Seldinger technique. Sheath and catheter detail(s) in table below.All catheters were placed under fluoroscopic guidance. The attending physician was physically present for the entire Electrophysiology Study and/or Ablation procedure. VASCULAR ACCESS AND CATHETER PROPERTIES: + +------+ + + Entry site ? Sheath Locations ? Catheter ? + +------+ + + L femoral vein 7Fr ?? RA appendage ?? 6 Fr hexapolar electrode catheter ? (2 mm spacing; proximal ring 25 ? cm from tip) ? + +------+ + + L femoral vein 7Fr ?? Coronary sinus 7 Fr deflectable electrode ? catheter 10 electrodes (2 ? mm-5mm-2mm spacing) ? + +------+ + + R femoral vein 8.5Fr Lasso ? 7 Fr deflectable circumferential ? catheter (20, 1mm electrodes) ? + +------+ + + L femoral vein 8.5Fr Right atrium ?? 8 Fr AcuNav intracardiac ? ultrasound catheter ? + +------+ + + R femoral vein 8.5Fr Ablation ? 3.5 mm tip Thermocool Navistar ? SF: 8 Fr deflectable quadrapolar ? ablation electrode (2 mm-5mm-2mm) + +------+ + + EP STUDY: A comprehensive electrophysiology study was not performed. Pacing and recording were carried out from the right atrial, coronary sinus, and His bundle sites. Certain components of a comprehensive electrophysiology study were not performed because they were not necessary for diagnosis. The A-H interval was 70ms.The H-V interval was 40ms. Description of arrhythmia: ABLATION AND MAPPING PROCEDURE: Transseptal catheterization was performed. A SL1 8.5 F sheath and dilator were placed in the SVC over a 0.32 wire. A Transeptal needle large BRK -1 needle was positioned 2mm proximal to the tip of the dilator and flushed. An Intracardiac echo catheter was placed in the right atrium and used to scan the relative positions of the LV outflow tract, the ascending aorta, the fossa ovalis and the posterior right atrium. The needle and dilator were dragged from the SVC into the fossa ovalis. The position of the needle was confirmed by scanning posterior and anterior to the point of the dilator. Once the position was confirmed using fluoroscopic, intracardiac ultrasound, and pressure guidance the needle was advanced into the LA while continuously monitoring its position via ultrasound. Permanent images were obtained and saved in the patient's medical record. A wire was advanced through the long sheath and positioned in the left atrium. The needle and dilator were removed and the sheath was flushed. Heparin bolus and infusion were begun prior to transseptal puncture to keep the ACT => 350 seconds. A second sheath was placed in the left atrium using the same technique as the first sheath. ATRIAL PRESSURES: + +-------+ Right atrial systolic 12mm Hg + +-------+ Right atrial diastolic 8mm Hg + +-------+ Right atrial mean ? 9mm Hg + +-------+ Left atrial systolic ?? 18mm Hg + +-------+ Left atrial diastolic 9mm Hg + +-------+ Left atrial mean ? 12mm Hg + +-------+ Mapping: A Carto shell was made. The pulmonary veins and left atrial sites were mapped, using a Lasso Prasanna catheter and a Thermocool catheter. Mapping was performed during RA pacing, LA pacing, and coronary sinus pacing. ABLATION PROCEDURE: - PULMONARY VEIN ISOLATION AND ENCIRCLING: The left superior pulmonary ??vein, left inferior pulmonary vein, right inferior pulmonary vein and ??right superior pulmonary vein were encircled and isolated with lasso ??guidance. Radiofrequency ablation was applied to the identified sites. ??The power was limited to 30W (25W when ablating the posterior left ??atrium or near the ostia of the veins). Esophageal temperature was ??monitored throughout. - Bidirectional block over all ablation lines was confirmed with ??differential pacing. Hemostasis. At the conclusions of the procedure all sheaths and catheters were removed from the left atrium. Heparin was discontinued and reversed with Protamine Sulfate. All sheaths and catheters were removed from the body. Manual compression was applied to the puncture sites. Groin sites were intact with no hematoma. STUDY COMPLETION - Fluoroscopy time: 13.5min. - Patient in-room time: 08:10 AM. - Patient out-of-room time: 11:50 AM. - Estimated blood loss: 30ml. Clinical Trial: ??The patient is not enrolled in a clinical trial._ PLAN: ??See post procedure orders. Bed rest for 3hours. Continue anticoagulation. Ketorolac for pericardial pain. At the completion of the procedure, findings, results, any complications, and treatment plan were communicated to the patient and reinforced after recovery from anesthesia. With the patient's consent, the attending physician communicated findings, results, any complications, and treatment plan to family members and patient support persons who were present at the conclusion of the procedure. POST PROCEDURAL DISPOSITION: Bedded outpatient status is indicated. ?Electronically signed by James Barrera 10/09/2020 08:18 James Barrera MD CARDIAC EP ORDERA BLES * (ABNORMAL) POCT ACTIVATED CLOTTING TIME, KAOLIN ISTAT (10/03/2020 11:23 EDT) Activated Clotting Time, Arterial, i-STAT 312(H) 74 - 137 Seconds 10/03/2020 11:43 EDT [facility] Blood ARTERIAL BLOOD / Unknown 10/03/2020 11:23 EDT 10/03/2020 11:43 EDT Narrative [facility] - 10/03/2020 11:43 EDT Therapeutic Interventional range is dependent upon patient population and procedure type Test Performed by Cardiology Randy Morillo MD POINT OF CARE TEST ORDERABLES [facility] [address] [place] [address] * (ABNORMAL) POCT ACTIVATED CLOTTING TIME, KAOLIN ISTAT (10/03/2020 10:44 EDT) Activated Clotting Time, Arterial, i-STAT 279(H) 74 - 137 Seconds 10/03/2020 11:00 EDT [facility] Blood ARTERIAL BLOOD / Unknown 10/03/2020 10:44 EDT 10/03/2020 11:00 EDT [facility] - 10/03/2020 11:00 EDT Therapeutic Interventional range is dependent upon patient population and procedure type Test Performed by Cardiology Randy Morillo MD POINT OF CARE TEST ORDERABLES Performing Organization Address [facility] Co de Phone Number [facility] [address] [place] [address] * (ABNORMAL) POCT ACTIVATED CLOTTING TIME, KAOLIN ISTAT (10/03/2020 10:03 EDT) Activated Clotting Time, Arterial, i-STAT 241(H) 74 - 137 Seconds 10/03/2020 10:22 EDT [facility] Blood ARTERIAL BLOOD / Unknown 10/03/2020 10:03 EDT 10/03/2020 10:22 EDT [facility] - 10/03/2020 10:22 EDT Therapeutic Interventional range is dependent upon patient population and procedure type Test Performed by Cardiology Randy Morillo MD POINT OF CARE TEST ORDERABLES Performing Organization Address City/[facility] Co de Phone Number [facility] [address] [place] [address] * QUANT BETA HCG, (10/03/2020 7:27 EDT) Beta HCG Quant, <5 <5 mIU/ml 10/03/2020 8:29 EDT [facility] Comment: NOTE: : Negative: Less than 5mIU/mL Indeterminant: Between 5 and 25 mIU/mL, recommend repeat testing in 48 hours Positive: Greater than 25 mIU/mL The results of this assay can be falsely lowered due to the consumption of Biotin. Blood VENOUS BLOOD / Unknown Venipuncture / Unknown 10/03/2020 7:27 EDT 10/03/2020 7:34 EDT James Barrera MD CHEMISTRY & BLOOD GAS ORDERABLES Performing Organization Address [facility] Co de Phone Number [facility] [address] [place] [address] * TYPE AND SCREEN (10/03/2020 7:27 EDT) ABO O 10/03/2020 8:23 EDT [facility] Rh Factor Positive 10/03/2020 8:23 EDT [facility] Antibody Screen Negative 10/03/2020 8:23 EDT [facility] Specimen Expires: 10/06/2020 @ 23:59 10/03/2020 8:23 EDT [facility] Blood VENOUS BLOOD / Unknown Venipuncture / Unknown 10/03/2020 7:27 EDT 10/03/2020 7:37 EDT James Barrera MD BLOOD BANK TESTS Performing Organization Address [facility] de Phone Number [facility] [address] [place] [address] * (ABNORMAL) PROTIME (10/03/2020 7:27 EDT) I.N.R. 1.1 0.9 - 1.1 Ratio 10/03/2020 8:12 EDT [facility] Pro Time 12.8(H) 10.4 - 12.6 secs 10/03/2020 8:12 EDT [facility] Blood VENOUS BLOOD / Unknown Venipuncture / Unknown 10/03/2020 7:27 EDT 10/03/2020 7:34 EDT Narrative [facility] - 10/03/2020 8:12 EDT Moderate Intensity Coumadin INR = 2.0-3.0 Adjustments in anticoagulant therapy dose should be based on the INR and NOT on the Protime. James Barrera MD HEMATOLOGY & PF4 ORDERABLES [facility] [address] [place] [address] * COMPLETE BLOOD COUNT (10/03/2020 7:27 EDT) WBC 5.30 4.00 - 12.40 K/cmm 10/03/2020 7:54 EDT [facility] RBC 4.36 3.86 - 5.04 M/cmm 10/03/2020 7:54 EDT [facility] Hemoglobin 13.3 11.6 - 15.2 gm/dL 10/03/2020 7:54 EDT [facility] HCT 38.1 34.9 - 44.4 % 10/03/2020 7:54 EDT [facility] MCV 87 81 - 98 fl 10/03/2020 7:54 EDT [facility] MCH 30.5 26.7 - 33.3 pg 10/03/2020 7:54 EDT [facility] MCHC 34.9 32.1 - 35.9 gm/dL 10/03/2020 7:54 EDT [facility] RDW-CV 12.7 <14.7 % 10/03/2020 7:54 EDT [facility] RDW-SD 40.4 <50.4 fl 10/03/2020 7:54 T [facility] PLT 208 141 - 377 K/cmm 10/03/2020 7:54 EDT [facility] MPV 9.5 9.5 - 12.7 fl 10/03/2020 7:54 T [facility] Blood VENOUS BLOOD / Unknown Venipuncture / Unknown 10/03/2020 7:27 EDT 10/03/2020 7:34 EDT James Barrera MD HEMATOLOGY & PF4 ORDERABLES [facility] [address] [place] [address] * CREATININE (10/03/2020 7:27 EDT) Creatinine 0.53 0.52 - 1.04 mg/dL 10/03/2020 8:10 EDT [facility] eGFR 108 >60 mL/min/1.7 3m2 10/03/2020 8:10 EDT [facility] Comment:eGFR calculated delisa welsh CKD-EPI equation for non- Americans. Multiply eGFR by 1.16 for patients. Blood VENOUS BLOOD / Unknown Venipuncture / Unknown 10/03/2020 7:27 EDT 10/03/2020 7:34 EDT James Barrera MD CHEMISTRY & BLOOD GAS ORDERABLES [facility] [address] [place] [address] * BUN (10/03/2020 7:27 EDT) BUN 14 10 - 26 mg/dL 10/03/2020 8:10 EDT [facility] Blood VENOUS BLOOD / Unknown Venipuncture / Unknown 10/03/2020 7:27 EDT 10/03/2020 7:34 EDT James Barrera MD CHEMISTRY & BLOOD GAS ORDERABLES [facility] [address] [place] [address] * ELECTROLYTES (10/03/2020 7:27 EDT) Sodium 144 136 - 145 mEq/L 10/03/2020 8:10 EDT [facility] Potassium 4.0 3.5 - 5.0 mEq/L 10/03/2020 8:10 EDT [facility] Chloride 103 96 - 110 mEq/L 10/03/2020 8:10 EDT [facility] CO2 Total 29 22 - 32 mEq/L 10/03/2020 8:10 EDT [facility] Blood VENOUS BLOOD / Unknown Venipuncture / Unknown 10/03/2020 7:27 EDT 10/03/2020 7:34 EDT James Barrera MD CHEMISTRY & BLOOD GAS ORDERABLES [facility] [address] [place] [address] documented in this encounter Visit Diagnoses Diagnosis Paroxysmal atrial fibrillation (HCC-CMS)- Primary Atrial fibrillation Paroxysmal atrial fibrillation (HCC-CMS) Atrial fibrillation documented in this encounter Admitting Diagnoses Diagnosis Paroxysmal atrial fibrillation (HCC-CMS) Atrial fibrillation documented in this encounter Administered Medications Inactive Administered Medications - up to 3 most recent administrations Medication Order MAR Action Action Date Dose Rate Site acetaminophen (TYLENOL) tablet 1,000 mg 1,000 mg, oral, PRN, 1 dose, Starting on Fri10/03/20 at 1140, Until Fri10/03/20 at 1256, Pain, Routine, Recovery (only) Given 10/03/2020 12:56 EDT 1,000 mg apixaban (ELIQUIS) tablet 5 mg 5 mg, oral, 2 TIMES DAILY, First dose on Fri10/03/20 at 1700, Until Discontinued, Routine Given 10/04/2020 8:10 EDT 5 mg Given 10/03/2020 18:11 EDT 5 mg blood thinner patient education booklet 1 Each 1 Each, other, Once (Without Time Specified), 1 dose, Starting on Fri10/03/20 at 1525, Until Fri10/03/20 at 2131, Routine Given 10/03/2020 21:31 EDT 1 Each dilTIAZem (TIAZAC) ER capsule 120 mg 120 mg, oral, DAILY, First dose on Fri10/04/20 at 0900, Until Discontinued, Routine Given 10/04/2020 8:10 EDT 120 mg ketOROLAC (TORADOL) injection 15 mg 15 mg, intravenous, EVERY 6 HOURS, 8 doses, First dose on Fri10/03/20 at 1200, Last dose on Fri10/05/20 at 0600, Routine Given 10/04/2020 5:11 EDT 15 mg Given 10/04/2020 1:09 EDT 15 mg Given 10/03/2020 18:09 EDT 15 mg lactated ringers (LR) infusion at 75 mL/hr, intravenous, PACU CONTINUOUS, Starting on Fri10/03/20 at 1200, Until Fri10/03/20 at 1358, Routine, Recovery (only) Rate Documented 10/03/2020 12:15 EDT 75 mL/hr levothyroxine (SYNTHROID) tablet 50 mcg 50 mcg, oral, DAILY BEFORE BREAKFAST, First dose on Fri10/04/20 at 0700, Until Discontinued, Routine Given 10/04/2020 5:12 EDT 50 mcg pantoprazole (PROTONIX) tablet 40 mg 40 mg, oral, DAILY, First dose on Fri10/03/20 at 1545, Until Discontinued, Routine Given 10/04/2020 8:10 EDT 40 mg Given 10/03/2020 18:11 EDT 40 mg sodium chloride 0.9 % (NS) infusion 30 mL/hr, intravenous, CONTINUOUS, Starting on Fri10/03/20 at 0730, Until Fri10/03/20 at 1524, Routine, Preprocedure Rate Change 10/03/2020 11:12 EDT 1000 mL/hr Continued by Anesthesia 10/03/2020 8:11 EDT 30 mL/hr New Bag 10/03/2020 7:30 EDT 30 mL/hr 30 mL/hr documented in this encounter Discontinued Medications Medication Sig Discontinue Reason Start Date End Da te levomefolate calcium (L-METHYLFOLATE ORAL)Indications:depressi on,and anxiety Take 15 mg by mouth daily. 10/04/2020 dilTIAZem (CARDIZEM CD) 180 mg ER capsule Take 1 Cap by mouth daily. 05/30/2020 10/04/2020 aspirin chewable 81 mg tablet Take 81 mg by mouth every 24 hours. 09/29/2019 10/04/2020 documented as of this encounter Active and Recently Administered Medications Times are shown in EDT. Scheduled Medication Order 10/02/2020 10/03/2020 10/04/2020 apixaban (ELIQUIS) tablet 5 mg 5 mg, oral, 2 TIMES DAILY, First dose on Fri10/03/20 at 1700, Until Discontinued, Routine 181 (Given - Provider: Michell Erazo RN) 0810 (Given - Provider: Candy Sr) blood thinner patient education booklet 1 Each (COMPLETED) 1 Each, other, Once (Without Time Specified), 1 dose, Starting on Fri10/03/20 at 1525, Until Fri10/03/20 at 2131, Routine 2131 (Given - Provider: Sharon Rios RN) dilTIAZem (TIAZAC) ER capsule 120 mg 120 mg, oral, DAILY, First dose on Fri10/04/20 at 0900, Until Discontinued, Routine 0810 (Given - Provid er: Candy Sr) ketOROLAC (TORADOL) injection 15 mg 15 mg, intravenous, EVERY 6 HOURS, 8 doses, First dose on Fri10/03/20 at 1200, Last dose on Fri10/05/20 at 0600, Routine 1213 (Given - Provider: Pablo Hernandez RN)1809 (Given - Provider: Michell Erazo RN) 0109 (Given - Provider: Sharon Rios RN)0511 (Given - Provider: Sharon Rios RN)1118 (Hold - Provider: Candy Sr - Reason: Other) levothyroxine (SYNTHROID) tablet 50 mcg 50 mcg, oral, DAILY BEFORE BREAKFAST, First dose on Fri10/04/20 at 0700, Until Discontinued, Routine 0512 (Given - Provid er: Sharon Rios RN) pantoprazole (PROTONIX) tablet 40 mg 40 mg, oral, DAILY, First dose on Fri10/03/20 at 1545, Until Discontinued, Routine 1811 (Given - Provider: Michell Erazo RN) 0810 (Given - Provider: Candy Sr) Continuous Medication Order 10/02/2020 10/03/2020 10/04/2020 lactated ringers (LR) infusion (CANCELED) at 75 mL/hr, intravenous, PACU CONTINUOUS, Starting on Fri10/03/20 at 1200, Until Fri10/03/20 at 1358, Routine, Recovery (only) 1215 (Rate Documented - Provider: Pablo Hernandez RN)1313 (Completed - Provider: Jasmyne Olguin RN) sodium chloride 0.9 % (NS) infusion (CANCELED) 30 mL/hr, intravenous, CONTINUOUS, Starting on Fri10/03/20 at 0730, Until Fri10/03/20 at 1524, Routine, Preprocedure 0730 (New Bag - Provider: Charla Carter, FARNAZ)0811 (Continued by Anesthesia - Provider: James Barrera MD)1112 (Rate Change - Provider: Marciano Jordan MD)1200 (Completed - Provider: Marciano Jordan MD) PRN Medication Order 10/02/2020 10/03/2020 10/04/2020 acetaminophen (TYLENOL) tablet 1,000 mg (COMPLETED)(Linked Group 1) 1,000 mg, oral, PRN, 1 dose, Starting on Fri10/03/20 at 1140, Until Fri10/03/20 at 1256, Pain, Routine, Recovery (only) 1256 (Given - Provider: Jasmyne Olguin RN) acetaminophen (TYLENOL) tablet 1,000 mg 1,000 mg, oral, EVERY 8 HOURS PRN, Starting on Fri10/03/20 at 1524, Until Fri10/04/20 at 1459, Pain, Routine Linked Groups Order Group 1: acetaminophen (TYLENOL) solution unit dose cup 995 mg (COMPLETED) 995 mg (rounded from 1,000 mg), oral, PRN, 1 dose, Starting on Fri10/03/20 at 1140, Until Fri10/03/20 at 1256, Pain, Routine, Recovery (only) Or acetaminophen (TYLENOL) tablet 1,000 mg (COMPLETED)Jump to med 1,000 mg, oral, PRN, 1 dose, Starting on Fri10/03/20 at 1140, Until Fri10/03/20 at 1256, Pain, Routine, Recovery (only) documented in this encounter Orders Medications Ordered That Festus ht Not Have Been Administered Count Last Ordered Date First Ordered Date acetaminophen (TYLENOL) solu tion unit dose cup 995 mg 1 10/03/2020 acetaminophen (TYLENOL) tablet 1,000 mg 1 0 10/03/2020 atropine 0.1 mg/mL syringe 0.5 mg 1 021 heparin 1,000 unit/mL injection 1 heparin in 04/22 NS 25,000 uni t/250 mL infusion 1 10/03/2020 lidocaine (PF) 10 mg/mL (1 % ) injection 2 mg 1 10/03/2020 naloxone (NARCAN) injection 0.2 mg 1 2020 ondansetron (PF) (ZOFRAN) injection 4 mg 1 10/03/2020 protamine 10 mg/mL injection 1 10/03/2020 Nursing Count Last Ordered Date First Orde red Date BEDREST 1 10/03/2020 VTE PHARMACOLOGIC PROPHYLAXI S CURRENTLY ORDERED OR ON ALTERNATIVE THER 1 10/03/2020 Discharge Count Last Ordered Date First Orde red Date DISCHARGE PATIENT 1 10/04/2020 documented in this encounter Care Teams Drift [employer]er Relationship Specialty Start Date End Date Jasmyne Poe MD [address] [place] [phone] PCP - General 01/07/13 documented as of this encounter
--- OUTSIDE RECORDS SUMMARY | 2023-12-03 02:07 | XMS_ITS | Encounter Summary ---
Author Organization [facility] Address [address] [place] [address] Care Team Providers Care Refrigerator Car Icer Name Role Phone Jasmyne Poe MD Primary Care Provider + Reason for Referral * Cardiology (Routine) - Closed Specialty Diagnoses / Procedures Referred By Contac t Referred To Contact Diagnoses Paroxysmal atrial fibrillation (HCC-CMS) Procedures INTRACARDIAC ECHOCARDIOGRAM (ICE) Riley Wolf MD [address] [place] [phone] Referral ID Status Reason Start Date Expiration Date Visits Re quested Visits Authorized [id number] Closed 09/22/2020 1 1 Reason for Visit * Auth/Cert Specialty Diagnoses / Procedures Referred By Contac t Referred To Contact Diagnoses Paroxysmal atrial fibrillation (HCC-CMS) Paroxysmal atrial fibrillation (HCC-CMS) [I48.0] Procedures MD EPHYS EVL TRNSPTL TX ATRIAL FIB ISOLAT PULM VEIN MD ECHO TRANSESOPHAG IMAGE ACQUISJ INTERP&REPORT Riley Wolf MD [address] [place] [phone] Riley Wolf MD [address] [facility] [address] [place] [address] Referral ID Status Reason Start Date Expiration Date Visits Re quested Visits Authorized [id number] 07/17/2020 1 1 Encounter Details Date Type Department Care Team (Late st Contact Info) Description 10/03/2020 6:37 EDT - 10/03/2020 23:59 EDT Hospital Encounter [facility] [place] [address] Riley Wolf MD [address] [phone] Paroxysmal atrial fibrillation ([facility]) Discharge Disposition: Home or Self Care [...] 6:27 EDT documented as of this encounter Functional [...] cardiac ablation. 60 Tab 2 10/03/2020 01/03/2021 aspirin chewable 81 mg tablet Take 81 mg by mouth every 24 hours. 09/29/2019 10/04/2020 B Complex Vitamins (VITAMIN B COMPLEX) tablet Take 1 Each by mouth daily. 03/23/2022 dilTIAZem (CARDIZEM CD) 180 mg ER capsule Take 1 Cap by mouth daily. 90 Cap 3 05/30/2020 10/04/2020 DILTiazem (CARDIZEM) 30 mg tablet Take 1 Tab by mouth daily as needed for Other. 30 Tab 10/11/2019 12/19/2020 dilTIAZem (TIAZAC) 120 mg SR capsule Take 1 capsule by mouth daily. 30 capsule 3 10/05/2020 10/24/2021 levomefolate calcium (L-METHYLFOLATE ORAL)Indications:depress ion,and anxiety Take 15 mg by mouth daily. 10/04/2020 levothyroxine (SYNTHROID) 50 mcg tabletIndications:Acquir ed hypothyroidism [...] Info) Description 05/20/2024 14:45 EST Office Visit [facility] Adult Primary Care - [address] [phone] Jasmyne Poe MD [address] [place] [phone] documented as of this encounter Procedures Procedure Name Priority Date/Time Associated Diagnosis Comments INTRACARDIAC ECHOCARDIOGRAM (ICE) Routine 10/03/2020 6:37 EDT Paroxysmal atrial fibrillation (HCC-CMS) documented in this encounter Results * INTRACARDIAC ECHOCARDIOGRAM (ICE) (10/03/2020 6:37 EDT) Narrative MERGE CARDIO - 10/03/2020 6:37 EDT Non Reportable Exam Riley Wolf MD CARDIAC ECHO SUNG [place] MERGE CARDIO documented in this encounter Visit Diagnoses Diagnosis Paroxysmal atrial fibrillation (HCC-CMS) Atrial fibrillation documented in this encounter Care Teams Refrigerator Car Icer Relationship Specialty Start Date End Date Jasmyne Poe MD [address] [place] [phone] PCP - General 01/07/13 documented as of this encounter
--- OUTSIDE RECORDS SUMMARY | 2023-12-03 02:07 | XMS_ITS | Encounter Summary ---
Author Organization [facility] Address [address] [place] [address] Care Team Providers Care Phone Engineer Name Role Phone Jasmyne Poe MD Primary Care Provider + Reason for Visit * Reason Onset Date Comments Other 09/22/2020 ablation Encounter Details Date Type Department Care Team (Late st Contact Info) Description 09/22/2020 Telephone [facility] Cardiology - [address] [place] [address] Florencia Granados, RN Other (ablation) Social History Tobacco Use Types Packs/Day Years [...] 09/26/2020 PHQ-2 Answer Date Recorded PHQ-2 SUBTOTAL 2 [...] have Coronavirus / COVID-19? No / Unsure 09/27/2020 12:23 EDT documented as of this encounter Functional [...] No 02/13/2018 documented as of this encounter Ordered Prescriptions Prescription Sig Dispensed Refills Start Date End Da te apixaban (ELIQUIS) 5 mg tablet Take 1 Tab by mouth 2 times daily. Plan is for you to start eliquis after your cardiac ablation. 60 Tab 2 10/03/2020 01/03/2021 pantoprazole (PROTONIX) 40 mg tablet Take one tablet daily the 3 days prior to your ablation and for 30 days afterwards. 33 Tab 09/30/2020 10/24/2021 documented in this encounter Miscellaneous Notes * Telephone Encounter - Florencia Granados RN - 09/29/2020 0918 EDT Spoke to pt. She has received abl instructions, questions answered. Reviewed w pt plan was for her to start eliquis after her ablation. documented in this encounter Plan of Treatment Upcoming Encounters Date Type Department Care Team (Late st Contact Info) Description 05/20/2024 14:45 EST Office Visit [facility] Adult Primary Care - [address] [phone] Jasmyne Poe MD [address] [place] [phone] (work) documented as of this encounter Results * COVID-19 TESTING (09/30/2020 11:20 EDT) COVID-19 rt-PCR Result Negative Negative 10/01/2020 14:02 EDT [facility] Comment: This test has not been FDA cleared or approved. This test has been authorized by FDA under an EUA for use by authorized laboratories. This test has been authorized only for detection of nucleic acid from 2019-nCoV, not for any other viruses or pathogens. This test is only authorized for the duration of the declaration that circumstances exist justifying the authorization of emergency use of in vitro diagnostic tests for detection and/or diagnosis of 2019-nCoV under section 564(b)(1) of Act, 21 U.S.C ?? 360bbb-3(b) (1), unless the authorization is terminated or revoked sooner. Negative results do not preclude 2019-nCoV infection and should not be used as the sole basis for treatment or other patient management decisions. Negative results must be combined with clinical observations, patient history, and epidemiological information. This test was developed and its performance characteristics determined by [facility]. It has not been cleared or approved by the US Food and Drug Administration. FDA does not require this test to go through premarket FDA review. This test is used for clinical purposes. It should not be regarded as investigational or for research. This laboratory is certified under the Clinical Laboratory Improvement Amendments (CLIA) as qualified to perform high complexity clinical laboratory testing. This test is based on the [facility] COVID-19 Emergency Use Authorization (EUA) assay, with minor modification as defined by the FDA Performed on the [employer] 7 Flex RT-PCR System. Performing Lab [facility] 10/01/2020 14:02 EDT [facility] Swab BOTH ANTERIOR NARES / Unknown Swab / Unknown 09/30/2020 11:20 EDT 09/30/2020 11:20 EDT Riley Wolf MD MICROBIOLOGY - [facility] ORDERABLES [facility] [address] [place] [address] documented in this encounter Visit Diagnoses Diagnosis Atrial fibrillation, unspecified type (HCC-CMS)- Primary documented in this encounter Care Teams Phone Engineer Relationship Specialty Start Date End Date Jasmyne Poe MD [address] [place] [phone] PCP - General 01/07/13 documented as of this encounter
--- OUTSIDE RECORDS SUMMARY | 2023-12-03 02:07 | XMS_ITS | Encounter Summary ---
Author Organization [facility] Address [address] [place] [address] Care Team Providers Care Barrel Tester And Drainer Name Role Phone Jasmyne Poe MD Primary Care Provider + Reason for Visit * Reason Onset Date Comments Other 06/28/2020 Encounter Details Date Type Department Care Team (Late st Contact Info) Description 06/28/2020 Telephone [facility] [address] [place] [address] Aditi Ashby NP [address] [facility] [address] [phone] Other Social History Tobacco Use Types Packs/Day Years [...] No 02/13/2018 documented as of this encounter Miscellaneous Notes * Telephone Encounter - Adriano Hoyt RN - 07/03/2020 1007 EDT Routed specific instructions to pt via My Chart message. * Telephone Encounter - Aditi Ashby APRN - 07/03/2020 0853 EDT I already responded directly to her via [employer]. Instructed her to repeat in 45 mins-1hr if ineffective. If she would rather take the 60 mg up front that is fine. Would not suggest repeating if she decides to do that. Instead she should contact our office. I am not concerned regarding her resting HR as long as she is feeling ok. Thanks. * Telephone Encounter - Adriano Hoyt RN - 06/30/2020 0954 EST Spoke with pt on the phone: * She already reached out to at [facility] and has appt on 07/17/20 * Agreeable with f/u with Pt would like more structured guidance on PRN dosing of Diltiazem for Afib. * Resting HR is in the 50's and drops to 42-48 at night * When having afib episodes HR increases to 140-160's * Initial instructions were for her to take Diltiazem 30mg if episode is longer than 10 minutes andthen can repeat x 1 * Pt unsure how soon after she can take the additional 30mg Diltiazem and notes that only one additional dose doesn't resolve the episode * Has been taking the second 30mg dose about an hour after the initial dose but usually needing to take 90mg over a number of hours * Pt is wondering if she could take 60mg of Diltiazem to start and how many more doses can she takeof 30mg and how often? * Telephone Encounter - Aditi Ashby APRN - 06/30/2020 0802 EST Does she have a preference who she sees? Can send referral to EP at [facility] or [facility]. Can then plan tofollow up with Dr Floyd. Thanks. * Telephone Encounter - Adriano Hoty RN - 06/28/2020 1418 EST Routing to Aditi Ashby APRN for recommendations. * Telephone Encounter - Alber Schuster - 06/28/2020 1415 EST PT called wanting to talk with Aditi about scheduling an Ablation. She is having more frequent episodes and can't take the medicine as prescribed. She also mentioned wanting to schedule an appt with a MD/Overnight Cashier. documented in this encounter Plan of Treatment Upcoming Encounters Date Type Department Care Team (Late st Contact Info) Description 05/20/2024 14:45 EST Office Visit [facility] Adult [place] [address] Jasmyne Poe MD [address] [place] [phone] documented as of this encounter Visit Diagnoses Not on filedocumented in this encounter Care Teams Barrel Tester And Drainer Relationship Specialty Start Date End Date Jasmyne Poe MD [address] [place] [phone] PCP - General 01/07/13 documented as of this encounter
--- OUTSIDE RECORDS SUMMARY | 2023-12-03 02:07 | XMS_ITS | Encounter Summary ---
Author Organization [facility] Address [address] [place] [address] Care Team Providers Care Geothermal System Installer Name Role Phone Jasmyne Poe MD Primary Care Provider + Encounter Details Date Type Department Care Team (Latest Contact Info) Description 10/15/2020 Travel Social History Tobacco Use Types Packs/Day [...] Info) Description 05/20/2024 14:45 EST Office Visit [facility] Adult Primary Care [address] [phone] Jasmyne Poe MD [address] [place] [phone] documented as of this encounter Visit Diagnoses Not on filedocumented in this encounter Care Teams Geothermal System Installer Relationship Specialty Start Date End Date Jasmyne Poe MD [address] [place] [phone] PCP - General 01/07/13 documented as of this encounter
--- OUTSIDE RECORDS SUMMARY | 2023-12-03 02:07 | XMS_ITS | Encounter Summary ---
Author Organization [facility] Address [address] [place] [address] Care Team Providers Care Baggage And Mail Agent Name Role Phone Jasmyne Poe MD Primary Care Provider + Reason for Visit * Reason Comments Medical Evaluation Pt reports ablation on 10/03 and now presents with fever and chills and fatigue today. Took 1G Tylenol at 1910, tmax at home was 101. Not covid vaccinated, no recent sick contacts. Encounter Details Date Type Department Care Team (Late st Contact Info) Description 10/16/2020 0:19 EDT - 10/16/2020 7:43 EDT Emergency [facility] Emergency Department - [address] [place] [address], [place] [id number] Basilio Oneill MD [address] [place] [id number] Fever, unspecified fever cause (Primary Dx) Discharge Disposition: Home or Self Care Social [...] Sign Reading Time Taken Comments Blood Pressure 136/64 10/16/2020 0731 EDT Pulse 66 10/16/2020 0023 EDT Temperature 36.5 ??C (97.7 ??F) 10/16/2020 0330 EDT Respiratory Rate 17 10/16/2020 0731 EDT Oxygen Saturation 100% 10/16/2020 0731 EDT Inhaled Oxygen Concentration - - Weight 79.8 kg (176 lb) 10/15/2020 2159 EDT Height 175.3 cm (5' 9) 10/15/2020 2159 EDT Body Mass Index 25.99 10/15/2020 2159 EDT documented in this encounter [...] 10/03/2020 documented as of this encounter Discharge Instructions * Discharge Instructions* Basilio Oneill MD - 10/16/2020 7:18 EDT Thank you for coming to the Emergency Department. After a thorough workup it is still not entirely clear what caused your symptoms. I believe that at this point it is safe for you to go home. However please keep in mind that in theEmergency Department we are only seeing a snapshot of your health and sometimes serious diseases take more time to clearly manifest. Please return to the Emergency Department if you experience new or different symptoms or your current symptoms don't resolve as expected. If you are unsure about whether you should return you can call your primary doctor and they can tell you whether you should return to the Emergency Department. It is important that you follow up with your primary doctor as discussed to ensure continuation of care. * Attachments The following attachments cannot be sent through Care Everywhere. * Fever: General Info (Welsh) documented in this encounter Medications at Time [...] Code Departure Means Destination Home or Self [facility] documented in this encounter Consult Notes * Roldan Moreno MD - 10/16/2020 0253 EDT CARDIOLOGY CONSULTATION NOTE Date of Consult: 10/16/2020 Referring MD: Basilio Oneill MD Reason for Consultation: Fever post AF ablation Assessment/Recommendations: Kirsten Rocha is 55 year old female with history of hypothyroidism, mild RAJ and symptomatic paroxysmal atrial fibrillation who underwent AF ablation on 10/03/20 (PVE/PVI) who had what appears to be a generally unremarkable initial post-ablation course presenting today with malaise and fever (101.6F) without any other localizing signs or symptoms to suggest a source of infection. While her symptoms started following eating a meal two days prior, although has not had any significant GI symptoms associated with this. Given the timecourse of the onset of her fever (~two weeks post-ablation) ddx must include atrio- esophageal fistula, which is a rare, but life-threatening potential complication from AF ablation. Fortunately, she does not have any signs or symptoms of atrio- esophageal fistulathat has been complicated by sepsis, bacteremia, hematemesis, stroke or other complications, however, those are often late-presenting features of this disease process and it would be prudent to evaluate for this further with CT. Recommendations: - CT chest w/ both IV and oral contrast for atrio-esophageal fistula - if negative for atrio-esophageal fistula then no further cardiovascular diagnostic testing indicated at this time - peripheral blood cultures have been drawn, pending at this time - continue apixaban anticoagulation and pantoprazole 40mg daily - follow-up already scheduled with Ana Jimenez APRN on 10/18/[address] Hernandez Thank you for involving us in the care of this patient. Please call with any questions. Roldan Moreno MD Cardiovascular Disease Fellow 10/16/20 4:00 Some of this note was transcribed with [employer] dictating software. While it was proofread, it may still contain unnoticed grammatical or word errors due to incorrect transcribing. HPI: Kirsten Rocha is 55 year old female with history of hypothyroidism, mild RAJ and symptomatic paroxysmal atrial fibrillation who underwent AF ablation on 10/03/20 (PVE/PVI) who had what appears to be a generally unremarkable post- ablation course in the hospital (mild pleuritic pain, but no infectious symptoms) and was discharged to home on 10/04/20 with apixaban and diltiazem. Called on-call physician this evening due to development of mild intermittent nausea with measured fever of 101.6F. As she describes, this began approximately two days prior to presentation when she ate something for dinner that may not have sit right. Since then has been at their [facility], has had increasing fatigueculminating in multiple naps today (unusual for her) and sensation of 'heart pounding,' checked hertemperature at [facility] and was 101.6F, then checked at home with a different thermometer which confirmed the fever. Associated symptoms aside from fatigue including mild abdominal discomfort and nausea.Otherwise, denies any rigors, cough, shortness of breath, hematemesis, chest pain, numbness, weakness, changes in vision, sick contacts, known COVID-19 exposures (has no received vaccination), rashes, known tick bites, dysuria, urgency, frequency, melena, brbpr. Has been taking her cardiac medications and pantoprazole prophylaxis, denies any symptoms that would suggest recurrent AF. Upon arrival to the ED was found to be afebrile (took 1g acetaminophen prior to arrival), otherwisehemodynamically stable and oxygenating well on room air. Workup notable for normal WBC, ECG showingsinus rhythm without AF on telemetry, CXR reported to be without acute abnormality, modestly elevated CRP (20), negative COVID-19 test. Two sets of peripheral blood cultures drawn. PMH PSH Past Medical History: Diagnosis Date ??? A-fib ([facility]) paroxysmal , currently on diltiazem ??? Anxiety 2003 on zoloft in the past ??? Aortic valve disease mild stenosis ??? History of epidural anesthesia and spinal , w/o issue ??? History of gestational diabetes resolved w/ diet and exercise ??? Hypertension with episdes of anxiety in the past ??? Hypothyroidism tx w/ meds ??? Rheumatoid arthritis ([facility]) poss. she is currently being seen by rheumatology - gets occas flare-ups ??? Rotator cuff injury 01/19/2014 Right shoulder ??? Sleep apnea tested , no treatment recommended Past Surgical History: Procedure Laterality Date ??? SECTION 1985 ??? KNEE ARTHROSCOPY Right 2002 right knee ??? PRE-MALIGNANT / BENIGN SKIN LESION EXCISION right upper back Social History Family History Social History Tobacco Use ??? Smoking status: Former Smoker ??? Smokeless tobacco: Never Used ??? Tobacco comment: a little in high school Substance Use Topics ??? Alcohol use: Not Currently Family History Problem Relation Age of Onset [...] grandmother ??? Heart Attack Other 60 grandfather- [place] ??? Leukemia Son AML Medications (Not in a hospital admission) Allergies Allergies Allergen Reactions ??? Penicillins Anaphylaxis Tolerates cephalexin ??? Sulfa (Sulfonamide Antibiotics) Rash Review of Systems: A 13 point review of systems was completed. Pertinent findings listed above in HPI. Physical Exam: VS: Patient Vitals for the past 8 hrs: BP Pulse Heart Rate Resp Temp SpO2 10/16/20 0330 116/64 -- 66 BPM 10 36.5 ??C (97.7 ??F) 100 % 10/16/20 0158 111/59 -- 58 BPM 14 -- 99 % 10/16/20 0023 123/76 66 -- 14 37.2 ??C (98.9 ??F) 99 % 10/15/20 2159 (!) 151/72 72 -- 16 37.1 ??C (98.8 ??F) 100 % Weight: Weight : 79.8 kg (176 lb) BMI: Body mass index is 25.99 kg/m??. GEN: Well-appearing, calm, cooperative in no acute distress. HEENT: Normocephalic, atraumatic, conjunctivae anicteric and non-injected. No epistaxis. Resp: No increased work of breathing or use of accessory muscles. Lung clear to auscultation bilaterally without crackles or wheezes. CV: Normal rate, regular rhythm. Normal S1/S2. No murmurs, rubs or gallops. No peripheral edema. Abd: Soft, non-distended Ext: Warm and well-perfused distally, no clubbing or cyanosis. Neuro: Alert and oriented x3, moving all four extremities against gravity, no dysarthria, facial droop of the upper face or arm weakness. No tremor. Skin: Warm, dry, no diaphoresis. Data: Data reviewed, including labs, imaging, prior documentation. Associated attestation - Pradip Hernandez MD - 10/16/2020 1258 EDT I discussed the patient with the resident/fellow/nurse practioner. I agree with the findings and plan of care documented in the resident's/fellow's note. RFA by PS earlier in the month. CT imaging is reassuring. Cultures drawn. Will go home with follow-up. documented in this encounter ED Notes * Nikki Hernandez RN - 10/16/2020 0742 EDT Discharge instructions reviewed. PIV removed. Pt discharged home. * Carrie Buckley RN - 10/16/2020 0129 EDT 1:30 Pt arrives to ED via walk-in from home with c/c fever, chills, and fatigue starting yesterday. Pt reports she had an ablation for a fib on 10/03 without complications. Had a max fever of 101F today with last Tylenol at 1900. Arrives at 98.9F, VSS on room air. Pt reports she called her travel attendants who advised her to come to ED to rule out infection from ablation. Pt endorses a sensation of bounding in her chest that comes and goes, not notable pattern per pt. Reports she does have this mild feeling now. Also endorses intermittent nausea. Pt not vaccinated for COVID, no known sick contacts. PIV placed. EKG obtained at triage. On full cardiac and SpO2 monitoring. GCS 15. A&Ox4. No acute distress noted. Resp even and unlabored. Pt speaking in full sentences. Pt ambulates with steady gait. Pending results and disposition. 2:20 No acute distress noted. Resp even and unlabored. Pt resting comfortably in stretcher. Denies complaints at present. Pt speaking in full sentences. Remains on full cardiac and SpO2 monitoring. Pending results and disposition. 3:34 Repeat troponin sent to lab. No acute distress noted. Resp even and unlabored. Pt resting comfortably in stretcher. Denies complaints at present, reports that bounding in her chest has resolved. Ptspeaking in full sentences. Remains on full cardiac and SpO2 monitoring. Pending additional resultsand disposition. 3:44 Cardiology consult at bedside. 4:[address], to call when contrast arrives so CT can get pt. Per CT, pt to have several sips of contrastat CT directly before scan. Pending contrast. 5:11 Report given to FARNAZ Jordan. Care deferred. * Basilio Oneill MD - 10/16/2020 0048 EDT The patient received an evaluation and medical screening exam for emergent medical conditions at the [facility] on 10/16/2020 Scribe attestation: This documentation is recorded by Dieter Fermin acting as Scribe under the direction and presence of Basilio Oneill MD. Basilio Oneill MD: I personally performed the services recorded by the scribe in my presence. I confirm the scribe's documentation has been reviewed by me to accurately and completely record my work, treatment, procedures, and medical decision making. HPI Kirsten Rocha is a 55 y.o. female with PMH [...] getting her temperature the patient called her Lining Machine Operator who referred her to the ED. The patient denies any cough, SOB, chest pain, abdominal pain, vomiting, diarrhea, or urinary symptoms. The patient endorses a little nausea. The patient states that she took tylenol at 1900 and is feeling a little better. The patient states that she is not vaccinated but has had no contact with a sick individual. History was provided by: Patient, medical records. Patient's pertinent PMH, FH, SH were reviewed and updated PRN. ROS A 10-point review of systems was performed. The patient answered negative to all questions with theexceptions of those explicitly detailed as positives in the HPI. Physical Exam Vital Signs Vitals Reassessment?: Yes Temp: 37.2 ??C (98.9 ??F) Temp src: Oral Pulse: 66 Cardiac Rhythm: Normal sinus rhythm Resp: 14 SpO2: 99 % BP: 123/76 BP MAP: 91 mm Hg BP Device: BP Machine BP Patient Position: Sitting BP Cuff Location: Left arm O2 Device: None (Room air) Nursing notes and vitals were reviewed. CONSTITUTIONAL: Pup-[id number]; well-nourished; in no apparent distress HEAD: Normocephalic EYES: anicteric ENMT: External appears normal; normal oropharynx, MMM CARD: RRR RESP: Breathing comfortably, speaking in full sentences, no increased work of breathing EXT: Moving all extremities normally SKIN: Warm, dry NEURO: awake, alert, CNII-XII appear intact, speech intact Data Interpretation An EKG was obtained and independently interpreted: Normal sinus rhythm, normal intervals. Normal axis, isolated T wave inversion in V3. No ST segment changes. No significant changes from prior EKG Imaging obtained was reviewed and independently interpreted: The patient had a chest X-Ray which was significant for normal AP chest x-ray. Patient had X-Ray that was obtained, reviewed, and interpreted by myself along with a radiologist. Please see radiology report for further details. The patient had a chest angiogram CT [...] Please see radiology report for further details. Laboratory results independently reviewed, significant for: CRP elevated, otherwise unremarkable Procedures Procedures Medical Decision Making & ED Course A medical screening exam was performed. The patient is a 55 y.o. female with a PMH including paroxysmal atrial flutter and paroxysmal atrial fbrillation who presents to the ED for a medical evaluation s/p an ablation on 10/03. The patient has been having increased fever and fatigue over the past day. Physical exam was unremarkable. Viral syndrome possible Covid-19. Rule out pneumonia. Low suspicion for infection related to recentablation. 0248: Paged Cardiology about the patient 0253: Discussed the patient with Cardiology, who agreed to evaluate the patient. 0414: Discussed the patient with cardiology who who recommended CTA chest to r/o atrioesophageal fistula. CTA unremarkable. Labs remarkable only for elevated CRP. Patient cleared for discharge by cardiology. Instructed to follow up with PCP and cardiology. Return precautions, follow-up plan and additional discharge instructions discussed with patient who voiced understanding. Patient stable for discharge. Pain Management While under my care in the Emergency Department, the patient's pain was managed to an adequate level weighing risk vs. benefit of medication. Disposition Disposition decisions were made weighing risks and benefits of hospitalization vs. outpatient treatment, the risk for further decompensation, and the patient's wishes. Discharged: the patient was stable, improved, or requested discharge. Prior to discharge my usual and customary return precautions were reviewed with the patient and/or family. This included follow-up instructions and reasons to return to the Emergency Department if condition worsens, does not improve as expected, or other new concerns arise. * Priscilla Correia - 10/15/2020 7883 EDT 12 Lead EKG Performed by PRISCILLA CORREIA and shown to Dr. Thomas. documented in this encounter Plan of Treatment Upcoming Encounters Date Type Department Care Team (Late st Contact Info) Description 05/20/2024 14:45 EST Office Visit [facility] - [place] [address] [place] [address] Jasmyne Poe MD [address] [place] [phone] documented as of this encounter Procedures Procedure Name Priority Date/Time Associated Diagnosis Comments ECG REPORT - SCANNED 11/01/2020 18:[address] ANGIO CHEST STAT 10/16/2020 6:05 EDT TROPONIN I Routine 10/16/2020 3:31 EDT C REACTIVE PROTEIN Add-On 10/16/2020 3: 31 EDT XR CHEST PORTABLE 1 VIEW STAT 10/16/2020 1:33 EDT BACTERIAL CULTURE, BLOOD Routine 10/16/2020 1:14 EDT BACTERIAL CULTURE, BLOOD Routine 10/16/2020 1:14 EDT ZZCOVID-19 TEST [facility] PCR Today 10/16/2020 1:09 EDT COVID-19 TESTING Routine 10/16/2020 1:09 EDT HOLD BLUE TOP STAT 10/16/2020 0:28 EDT SCREENING GLUCOSE STAT 10/16/2020 0:2 8 EDT TROPONIN I STAT 10/16/2020 0:28 EDT COMPLETE BLOOD COUNT AND DIFFERENTIAL STAT 10/16/2020 0:28 EDT BUN STAT 10/16/2020 0:28 EDT MAGNESIUM STAT 10/16/2020 0:28 EDT CREATININE STAT 10/16/2020 0:28 EDT ELECTROLYTES STAT 10/16/2020 0:28 EDT EKG 12-LEAD STAT 10/15/2020 22:06 EDT documented in this encounter Results * ECG REPORT - SCANNED (11/01/2020 18:16 EDT) 11/01/2020 18:1 6 EDT Scan 2 Restorative Care Technician PROCEDURE/MINOR BRENDA GICAL ORDERABLES * CT ANGIO CHEST (10/16/2020 6:05 EDT) Anatomical Region Laterality Modality Chest Computed Tomogra phy 10/16/2020 8:43 EDT Impressions 10/16/2020 8:43 EDT 1. ??No evidence of a atrial esophageal fistula. No extension of esophageal contrast into the mediastinum and oral contrast CT. No extravasation of left atrial contrast on CT angiogram. 2. ??Mild left atrial enlargement consistent with known history of atrial fibrillation. 3. ??Dilation of the splenic vein up to 14 mm, which may indicate portal venous hypertension. I have personally reviewed the images and the above interpretation and agree with the findings. Narrative 10/16/2020 8:[address] ANGIO CHEST ??10/16/2020 5:55 AM Clinical History/Comments: Evaluate for atrio-esophageal fistula. Technique: An oral contrast CT with sips on the table was performed. After that, a retrospectively gated CT angiogram with contrast bolus timed to the left atrium was performed. Exam description: CT of the chest with oral contrast and CT angiogram of the chest. Comparison: 4 hours prior and pulmonary vein angiogram 09/29/2020.. Findings: Lower neck: Exophytic nodule measuring 6 mm arising from the right thyroid lobe, warranting no further imaging evaluation based on current guidelines. Chest wall soft tissues: No abnormality. Mediastinum and janell: On oral contrast CT, the patient took sips while on the table. Contrast is seen within the esophagus as it courses posterior to the left atrium with no extraluminal passage of contrast. No extraluminal oral contrast is seen in the subsequently obtained CT angiogram. The distal esophagus appears mildly patulous, likely related to active peristalsis. ??No mediastinal or hilar lymphadenopathy. Heart and mediastinal vasculature: ??The left atrium is well opacified by intravenous contrast and there is no evidence of contrast leak into the esophagus or elsewhere. The atrium is mildly enlarged measuring up to 4.5 cm maximum AP diameter. The remainder of the cardiac chambers and mediastinal vessels are normal size. There is mild calcification of the coronaries and trace pericardial fluid, which is new from prior. Large airways: ??No abnormalities. Lungs: ??No concerning pulmonary nodule or consolidation. There is trace scarring/atelectasis in the left lung base and lingula. Pleura: No pleural effusion or pneumothorax. Upper abdomen (limited to upper abdomen, not optimized for abdominal imaging): Normal aside from a dilated splenic vein (up to 14 mm in the confluence) and mild calcification of the aorta and its branches. Bones: ??No fracture or suspicious osseous lesion. Procedure Note Olivia Ryder MD - 10/16/2020 CT ANGIO CHEST 10/16/2020 5:55 AM Clinical History/Comments: Evaluate for atrio-esophageal fistula. Technique: An oral contrast CT with sips on the table was performed. After that, aretrospectively gated CT angiogram with contrast bolus timed to the leftatrium was performed. Exam description: CT of the chest with oral contrast and CT angiogram ofthe chest. Comparison: 4 hours prior and pulmonary vein angiogram 09/29/2020.. Findings: Lower neck: Exophytic nodule measuring 6 mm arising from the right thyroidlobe, warranting no further imaging evaluation based on currentguidelines. Chest wall soft tissues: No abnormality. Mediastinum and janell: On oral contrast CT, the patient took sips while onthe table. Contrast is seen within the esophagus as it courses posteriorto the left atrium with no extraluminal passage of contrast. Noextraluminal oral contrast is seen in the subsequently obtained CTangiogram. The distal esophagus appears mildly patulous, likely related toactive peristalsis. No mediastinal or hilar lymphadenopathy. Heart and mediastinal vasculature: The left atrium is well opacified byintravenous contrast and there is no evidence of contrast leak into theesophagus or elsewhere. The atrium is mildly enlarged measuring up to 4.5cm maximum AP diameter. The remainder of the cardiac chambers andmediastinal vessels are normal size. There is mild calcification of thecoronaries and trace pericardial fluid, which is new from prior. Large airways: No abnormalities. Lungs: No concerning pulmonary nodule or consolidation. There is tracescarring/atelectasis in the left lung base and lingula. Pleura: No pleural effusion or pneumothorax. Upper abdomen (limited to upper abdomen, not optimized for abdominalimaging): Normal aside from a dilated splenic vein (up to 14 mm in theconfluence) and mild calcification of the aorta and its branches. Bones: No fracture or suspicious osseous lesion. IMPRESSION 1. No evidence of a atrial esophageal fistula. No extension of esophagealcontrast into the mediastinum and oral contrast CT. No extravasation ofleft atrial contrast on CT angiogram. 2. Mild left atrial enlargement consistent with known history of atrialfibrillation. 3. Dilation of the splenic vein up to 14 mm, which may indicate portalvenous hypertension. I have personally reviewed the images and the above interpretation andagree with the findings. Roldan Moreno MD IMG CT ORDERABLES * (ABNORMAL) C REACTIVE PROTEIN (10/16/2020 3:31 EDT) C-Reactive Protein 20.0(H) <10.0 mg/L 10/16/2020 4:33 EDT [facility] Blood VENOUS BLOOD / Unknown Venipuncture / Unknown 10/16/2020 3:31 EDT 10/16/2020 3:35 EDT Roldan Moreno MD CHEMISTRY & BLOOD G ORDERABLES [facility] [address] [place] [address] * TROPONIN I (10/16/2020 3:31 EDT) Troponin I (ng/mL) <0.034 <0.034 ng/mL 10/16/2020 4:23 EDT [facility] Comment:Slight hemolysis erendira ntified, interpret with caution as results may be affected due to hemolysis. Blood VENOUS BLOOD / Unknown Venipuncture / Unknown 10/16/2020 3:31 EDT 10/16/2020 3:35 EDT Narrative [facility] - 10/16/2020 4:23 EDT The results of this assay can be falsely lowered due to the consumption of Biotin. Basilio Oneill MD CHEMISTRY & BLOOD GA S ORDERABLES [facility] [address] [place] [address] * XR CHEST PORTABLE 1 VIEW (10/16/2020 1:33 EDT) Anatomical Region Laterality Modality Computed Radiogr aphy 10/16/2020 9:17 EDT Impressions 10/16/2020 9:17 EDT 1. ??Normal AP chest x-ray I have personally reviewed the images and the above interpretation and agree with the findings. Narrative 10/16/2020 9:17 EDT XR CHEST PORTABLE 1 VIEW ??10/16/2020 1:15 AM CLINICAL HISTORY/COMMENTS: fever COMPARISON: Cardiac CT 09/29/2020. FINDINGS: Single portable AP view of the chest. Lines/tubes: ??None. Soft tissues, bones and extrathoracic findings: No significant abnormality. Cardiac and mediastinal contours: Normal size and contour. Lungs: The lungs are clear and the pulmonary vasculature is normal. Pleura: No visible pleural abnormality. Procedure Note Angelica Menon MD - 10/16/2020 XR CHEST PORTABLE 1 VIEW 10/16/2020 1:15 AM CLINICAL HISTORY/COMMENTS: fever COMPARISON: Cardiac CT 09/29/2020. FINDINGS: Single portable AP view of the chest. Lines/tubes: None. Soft tissues, bones and extrathoracic findings: No significantabnormality. Cardiac and mediastinal contours: Normal size and contour. Lungs: The lungs are clear and the pulmonary vasculature is normal. Pleura: No visible pleural abnormality. IMPRESSION 1. Normal AP chest x-ray I have personally reviewed the images and the above interpretation andagree with the findings. Basilio Oneill MD IMG DIAGNOSTIC IMAGI NG ORDERABLES * BACTERIAL CULTURE, BLOOD (10/16/2020 1:14 EDT) Organism ID No Growth at 5 days 10/21/2020 1:30 EDT [facility] Blood VENOUS BLOOD / Unknown Blood Culture / Unknown 10/16/2020 1:14 EDT 10/16/2020 1:28 EDT Basilio Oneill MD MICROBIOLOGY - GENER AL ORDERABLES Performing Organization Address [facility] Co de Phone Number [facility] [address] [place] [address] * BACTERIAL CULTURE, BLOOD (10/16/2020 1:14 EDT) Organism ID No Growth at 5 days 10/21/2020 1:30 EDT [facility] Blood VENOUS BLOOD / Unknown Blood Culture / Unknown 10/16/2020 1:14 EDT 10/16/2020 1:28 EDT Basilio Oneill MD MICROBIOLOGY - GENER AL ORDERABLES Performing Organization Address City/[facility] de Phone Number [facility] [address] [place] [address] * COVID-19 TEST [facility] PCR (10/16/2020 1:09 EDT) Swab ENTIRE NASOPHARYNX / Unknown Swab / Unknown 10/16/2020 1:09 EDT 10/16/2020 1:23 EDT Basilio Oneill MD MICROBIOLOGY - GENER AL ORDERABLES Performing Organization Address City/[facility] Co de Phone Number [facility] [address] [place] [address] * COVID-19 TESTING (10/16/2020 1:09 EDT) COVID-19 rt-PCR Result Negative Negative 10/16/2020 5:29 EDT [facility] Performing Lab [facility] 10/16/2020 5:29 EDT [facility] Swab ENTIRE NASOPHARYNX / Unknown Swab / Unknown 10/16/2020 1:09 EDT 10/16/2020 1:23 EDT Basilio Oneill MD MICROBIOLOGY - GENER AL ORDERABLES [facility] [address] [place] [address] * HOLD BLUE TOP (10/16/2020 0:28 EDT) Hold Hold 10/16/2020 1:45 EDT [facility] Blood VENOUS BLOOD / Unknown Venipuncture / Unknown 10/16/2020 0:28 EDT 10/16/2020 0:32 EDT Basilio Oneill MD LAB INFO SERVICE AND SUPPORT & PHONE RESULT [facility] [address] [place] [address] * SCREENING GLUCOSE (10/16/2020 0:28 EDT) Pathologist [facility] Glucose, Screening 98 70 - 100 mg/dL 10/16/2020 0:54 EDT [facility] Blood VENOUS BLOOD / Unknown Venipuncture / Unknown 10/16/2020 0:28 EDT 10/16/2020 0:32 EDT Basilio Oneill MD CHEMISTRY & BLOOD GA S ORDERABLES [facility] [address] [place] [address] * MAGNESIUM (10/16/2020 0:28 EDT) Magnesium 2.0 1.7 - 2.8 mg/dL 10/16/2020 0:54 EDT [facility] Blood VENOUS BLOOD / Unknown Venipuncture / Unknown 10/16/2020 0:28 EDT 10/16/2020 0:32 EDT Basilio Oneill MD CHEMISTRY & BLOOD GA S ORDERABLES Performing Organization Address [facility] de Phone Number [facility] [address] [place] [address] * TROPONIN I (10/16/2020 0:28 EDT) Pathologist [facility] Troponin I (ng/mL) <0.034 <0.034 ng/mL 10/16/2020 1:08 EDT [facility] Blood VENOUS BLOOD / Unknown Venipuncture / Unknown 10/16/2020 0:28 EDT 10/16/2020 0:32 EDT Narrative [facility] - 10/16/2020 1:08 EDT The results of this assay can be falsely lowered due to the consumption of Biotin. Basilio Oneill MD CHEMISTRY & BLOOD GA S ORDERABLES Performing Organization Address [facility] de Phone Number [facility] [address] [place] [address] * ELECTROLYTES (10/16/2020 0:28 EDT) Sodium 140 136 - 145 mEq/L 10/16/2020 0:54 EDT [facility] Potassium 3.5 3.5 - 5.0 mEq/L 10/16/2020 0:54 EDT [facility] Chloride 103 96 - 110 mEq/L 10/16/2020 0:54 EDT [facility] CO2 Total 25 22 - 32 mEq/L 10/16/2020 0:54 EDT [facility] Blood VENOUS BLOOD / Unknown Venipuncture / Unknown 10/16/2020 0:28 EDT 10/16/2020 0:32 EDT Basilio Oneill MD CHEMISTRY & BLOOD GA S ORDERABLES Performing Organization Address City/[facility] Co de Phone Number [facility] [address] [place] [address] * CREATININE (10/16/2020 0:28 EDT) Creatinine 0.53 0.52 - 1.04 mg/dL 10/16/2020 0:54 EDT [facility] eGFR 108 >60 mL/min/1.7 3m2 10/16/2020 0:54 EDT [facility] Comment:eGFR calculated delisa welsh CKD-EPI equation for non- Americans. Multiply eGFR by 1.16 for patients. Blood VENOUS BLOOD / Unknown Venipuncture / Unknown 10/16/2020 0:28 EDT 10/16/2020 0:32 EDT Basilio Oneill MD CHEMISTRY & BLOOD GA S ORDERABLES Performing Organization Address City/[facility] Co de Phone Number [facility] [address] [place] [address] * (ABNORMAL) BUN (10/16/2020 0:28 EDT) BUN 9(L) 10 - 26 mg/dL 10/16/2020 0:54 EDT [facility] Blood VENOUS BLOOD / Unknown Venipuncture / Unknown 10/16/2020 0:28 EDT 10/16/2020 0:32 EDT Basilio Oneill MD CHEMISTRY & BLOOD GA S ORDERABLES Performing Organization Address City/[facility] Co de Phone Number [facility] [address] [place] [address] * (ABNORMAL) COMPLETE BLOOD COUNT AND DIFFERENTIAL (10/16/2020 0:28 EDT) WBC 6.77 4.00 - 12.40 K/cmm 10/16/2020 0:39 EDT [facility] RBC 4.33 3.86 - 5.04 M/cmm 10/16/2020 0:39 [facility] Hemoglobin 13.4 11.6 - 15.2 gm/dL 10/16/2020 0:39 [facility] HCT 37.9 34.9 - 44.4 % 10/16/2020 0:39 [facility] MCV 88 81 - 98 fl 10/16/2020 0:39 [facility] MCH 30.9 26.7 - 33.3 pg 10/16/2020 0:39 [facility] MCHC 35.4 32.1 - 35.9 gm/dL 10/16/2020 0:39 [facility] RDW-CV 13.0 <14.7 % 10/16/2020 0:39 [facility] RDW-SD 41.5 <50.4 fl 10/16/2020 0:39 [facility] PLT 224 141 - 377 K/cmm 10/16/2020 0:39 [facility] MPV 9.0(L) 9.5 - 12.7 fl 10/16/2020 0:39 [facility] % Neutrophils 75.9 % 10/16/2020 0:39 [facility] % Lymphocytes 15.7 % 10/16/2020 0:39 [facility] % Monocytes 7.4 % 10/16/2020 0:39 [facility] % Eosinophils 0.3 % 10/16/2020 0:39 [facility] % Basophils 0.3 % 10/16/2020 0:39 [facility] % Immature Grans 0.4 % 10/17/19 0:39 [facility] Absolute Neutrophils 5.14 2.20 - 8.85 K/cmm 10/16/2020 0:39 [facility] Absolute Lymphocytes 1.06(L) 1.09 - 3.30 K/cmm 10/16/2020 0:39 [facility] Absolute Monocytes 0.50 0.10 - 0.80 K/cmm 10/16/2020 0:39 EDT [facility] Absolute Eosinophils 0.02(L) 0.03 - 0.61 K/cmm 10/16/2020 0:39 EDT [facility] ABS Basophils 0.02 0.01 - 0.11 K/cmm 10/16/2020 0:39 EDT [facility] Absolute Immature Grans 0.03 0.00 - 0.06 K/cmm 10/16/2020 0:39 EDT [facility] Type of Differential: Auto 10/16/2020 0:39 EDT [facility] Blood VENOUS BLOOD / Unknown Venipuncture / Unknown 10/16/2020 0:28 EDT 10/16/2020 0:32 EDT Basilio Oneill MD PACKAGES & DNA PROBE ORDERABLES Performing Organization Address [facility] Co de Phone Number [facility] [address] [place] [address] * EKG 12-LEAD (10/15/2020 22:06 EDT) 10/15/2020 22:0 6 EDT Narrative [facility] - 11/01/2020 18:12 EDT ?[facility] Emergency ? Test Date: ?2020-10-15 Pat Name: ? KIRSTEN ROCHA ? Department: ?? ED ? Room: ? Gender: ? Female ? Photographs Curator: ?? [id number] : ?1965 ? Requested By: JEANNA Schwartz Order Number: [id number] ? Reading : ?? STEVE ROBERTS MD PhD ? Measurements Intervals ?Banks ? Rate: ? 65 ? P: ?60 ID: ? [id number] ?QRS: ?41 QRSD: ? 88 ? T: ?21 QT: ? 398 ? QTc: ?414 ? Interpretive Statements SINUS RHYTHM Compared to ECG 10/03/2020 13:14:30 Sinus bradycardia no longer present I reviewed the tracing and have either agreed or edited the findings in this report. Electronically Signed On 11-01-2020 18:12:48 EDT by STEVE ROBERTS MD PhD. Procedure Note Steve Roberts MD - 11/01/2020 [facility] Emergency Test Date: 2020-10-15 Pat Name: KIRSTEN ROCHA Department: ED Room: Gender: Female Photographs Curator: [id number] : 1965 Requested By: JEANNA Schwartz Order Number: [id number] Reading MD: STEVE ROBERTS [facility] Measurements Intervals Banks Rate: 65 P: 60 ID: [id number] QRS: 41 QRSD: 88 T: 21 QT: 398 QTc: 414 Interpretive Statements SINUS RHYTHM Compared to ECG 10/03/2020 13:14:30 Sinus bradycardia no longer present I reviewed the tracing and have either agreed or edited the findings inthis report. Electronically Signed On 11-01-2020 18:12:48 EDT by JANUARY WASHINGTON PhD. Priscilla Romano MD CARDIAC ECG ORDERABL ES [facility] EKG documented in this encounter Visit Diagnoses Diagnosis Fever, unspecified fever cause- Primary documented in this encounter Administered Medications Inactive Administered Medications - up to 3 most recent administrations Medication Order MAR Action Action Date Dose Rate Site iohexoL (OMNIPAQUE 350) solution 100 mL 100 mL, intravenous, Once in imaging, 1 dose, Starting on Fri10/16/20 at 0555, Until Fri10/16/20 at 0606, Routine, Imaging Protocol Orders Given 10/16/2020 6:06 EDT 100 mL iohexoL in sterile water (bottle) 3.2% oral solution 900 mL, oral, NOW X1, 1 dose, On Fri10/16/20 at 0445, Routine Given by Other 10/16/2020 6:23 EDT 900 mL lidocaine (PF) 10 mg/mL (1 %) injection 2 mg 2 mg, intradermal, PRN, 4 doses, Starting on Fri10/16/20 at 0026, Until Fri10/16/20 at 0943, peripheral intravenous catheter placement, STAT documented in this encounter Active and Recently Administered Medications Times are shown in EDT. Scheduled Medication Order 10/14/2020 10/15/2020 10/16/2020 iohexoL (OMNIPAQUE 350) solution 100 mL (COMPLETED) 100 mL, intravenous, Once in imaging, 1 dose, Starting on Fri10/16/20 at 0555, Until Fri10/16/20 at 0606, Routine, Imaging Protocol Orders 0606 (Given - Provid er: Jolanta Nelson) iohexoL in sterile water (bottle) 3.2% oral solution (COMPLETED) 900 mL, oral, NOW X1, 1 dose, On Fri10/16/20 at 0445, Routine 0623 (Given by Other - Provider: Nikki Hernandez, FARNAZ) PRN Medication Order 10/14/2020 10/15/2020 10/16/2020 lidocaine (PF) 10 mg/mL (1 %) injection 2 mg 2 mg, intradermal, PRN, 4 doses, Starting on Fri10/16/20 at 0026, Until Fri10/16/20 at 0943, peripheral intravenous catheter placement, STAT documented in this encounter Orders Medications Ordered That Festus ht Not Have Been Administered Count Last Ordered Date First Ordered Date lidocaine (PF) 10 mg/mL (1 % ) injection 2 mg 1 10/16/2020 documented in this encounter Additional Health Concerns Infection Onset Date Last Indicated Resolved Time R/O COVID-19 10/16/2020 10/16/2020 10/16/2020 5:30 EDT documented as of this encounter Care Teams Baggage And Mail Agent Relationship Specialty Start Date End Date Jasmyne Poe MD [address] [place] [phone] PCP - General 01/07/13 documented as of this encounter
--- OUTSIDE RECORDS SUMMARY | 2023-12-03 02:07 | XMS_ITS | Encounter Summary ---
Author Organization [facility] Address [address] [place] [address] Care Team Providers Care Home Care Aide Name Role Phone Jasmyne Poe MD Primary Care Provider + Reason for Referral * Radiology Services (Routine) - Closed Specialty Diagnoses / Procedures Referred By Cherelleac t Referred To Contact Diagnoses Paroxysmal atrial fibrillation (HCC-CMS) Procedures CT CARDIAC ANGIO PULMONARY VEIN CT ANGIO CHEST Latoya Santana MD [address] [place] [address] Referral ID Status Reason Start Date Expiration Date Visits Re quested Visits Authorized [id number] Closed 07/17/2020 1 1 Reason for Visit * Radiology Services (Routine) - Closed Specialty Diagnoses / Procedures Referred By Meka james Referred To Contact Diagnoses Paroxysmal atrial fibrillation (HCC-CMS) Procedures CT CARDIAC ANGIO PULMONARY VEIN CT ANGIO CHEST Latoya Santana MD [address] [place] [address] Referral ID Status Reason Start Date Expiration Date Visits Re quested Visits Authorized [id number] Closed 07/17/2020 1 1 Encounter Details Date Type Department Care Team (Latest Contact Info) Description 09/29/2020 17:29 EDT - 09/29/2020 23:59 EDT Hospital Encounter Medical Center Radiology CT - [facility] [address] [place] [address] Paroxysmal atrial fibrillation ([facility]) Discharge Disposition: Home or Self Care Social [...] No 02/13/2018 documented as of this encounter Medications at [...] Info) Description 05/20/2024 14:45 EST Office Visit [facility] Adult Primary Care - [address] [phone] Jasmyne Poe MD [address] [place] [phone] documented as of this encounter Procedures Procedure Name Priority Date/Time Associated Diagnosis Comments CT CARDIAC ANGIO PULMONARY VEIN Routine 09/29/2020 17:55 EDT Paroxysmal atrial fibrillation (HCC-CMS) documented in this encounter Results * CT CARDIAC ANGIO PULMONARY VEIN (09/29/2020 17:55 EDT) Anatomical Region Laterality Modality Chest Computed Tomogra phy 10/02/2020 8:56 EDT Narrative 10/02/2020 8:[address] CARDIAC ANGIO PULMONARY VEIN ??09/29/2020 6:00 PM Clinical History/Comments: Atrial fibrillation pre or post ablation Technique: Cardiac gated contrast-enhanced CT scan of the chest was performed through the heart. ??Vessel analysis and 3D renderings were performed on the dedicated console. The radiologist reviewed and adjusted the images for the 3D rendering on an independent workstation, as necessary, prior to interpretation. Exam description: CT of the heart with contrast for cardiac structure/morphology or function. Comparison: None. Findings: CT of the chest with contrast performed tailored for left atrium and pulmonary vein opacification. The left atrium is normal in size ??The maximum anterior to posterior diameter measurement is 4.2 cm. The left atrial appendage is well opacified and no definite thrombus is seen. Pulmonary venous drainage is normal. There are two pulmonary veins on each side with common drainage of the right upper and middle lobes. There are no narrowed or aberrant veins. Other cardiac structures look normal. The coronary arteries arise normally with a right dominant circulation. Additional findings: * ??No significant additional findings. Procedure Note Kale Adler MD - 10/02/2020 CT CARDIAC ANGIO PULMONARY VEIN 09/29/2020 6:00 PM Clinical History/Comments: Atrial fibrillation pre or post ablation Technique: Cardiac gated contrast-enhanced CT scan of the chest was performed throughthe heart. Vessel analysis and 3D renderings were performed on thededicated console. The radiologist reviewed and adjusted the images forthe 3D rendering on an independent workstation, as necessary, prior tointerpretation. Exam description: CT of the heart with contrast for cardiacstructure/morphology or function. Comparison: None. Findings: CT of the chest with contrast performed tailored for left atrium andpulmonary vein opacification. The left atrium is normal in size The maximum anterior to posteriordiameter measurement is 4.2 cm. The left atrial appendage is wellopacified and no definite thrombus is seen. Pulmonary venous drainage is normal. There are two pulmonary veins on eachside with common drainage of the right upper and middle lobes. There areno narrowed or aberrant veins. Other cardiac structures look normal. The coronary arteries arise normallywith a right dominant circulation. Additional findings: * No significant additional findings. Riley Wolf MD IMG CT ORDERABLES documented in this encounter Visit Diagnoses Diagnosis Paroxysmal atrial fibrillation ([facility]) Atrial fibrillation documented in this encounter Administered Medications Inactive Administered Medications - up to 3 most recent administrations Medication Order MAR Action Action Date Dose Rate Site iohexoL (OMNIPAQUE 350) solution 100 mL 100 mL, intravenous, Once in imaging, 1 dose, Starting on Fri09/29/20 at 1740, Until Fri09/29/20 at 1756, Routine, Imaging Protocol Orders Given 09/29/2020 17:56 EDT 95 mL documented in this encounter Orders Medications Ordered That Festus ht Not Have Been Administered Count Last Ordered Date First Ordered Date iohexoL (OMNIPAQUE 350) solution 100 mL 1 0 09/29/2020 documented in this encounter Care Teams Home Care Aide Relationship Specialty Start Date End Date Jasmyne Poe MD [address] [place] [phone] PCP - General 01/07/13 documented as of this encounter
--- OUTSIDE RECORDS SUMMARY | 2023-12-03 02:07 | XMS_ITS | Encounter Summary ---
Author Organization [facility] Address [address] [place] [address] Care Team Providers Care Filter Filler Name Role Phone Jasmyne Poe MD Primary Care Provider + Encounter Details Date Type Department Care Team (Late st Contact Info) Description 07/17/2020 Orders Only [facility] Radiology Nuclear Medicine and PET - [facility] [address] [place], [place] [phone] Mukesh Upton MD [address] [facility] Level [address] [place] [phone] Social History Tobacco Use Types [...] No 02/13/2018 documented as of this encounter Plan of Treatment Upcoming Encounters Date Type Department Care Team (Late st Contact Info) Description 05/20/2024 14:45 EST Office Visit [facility] Adult Primary Care [address] [phone] Jasmyne Poe MD [address] [place] [phone] documented as of this encounter Visit Diagnoses Not on filedocumented in this encounter Care Teams Filter Filler Relationship Specialty Start Date End Date Jasmyne Poe MD [address] [place] [phone] PCP - General 01/07/13 documented as of this encounter
--- OUTSIDE RECORDS SUMMARY | 2023-12-03 02:07 | XMS_ITS | Encounter Summary ---
Author Organization [facility] Address [address] [place] [address] Care Team Providers Care Plastic Molder Name Role Phone Jasmyne Poe MD Primary Care Provider + Encounter Details Date Type Department Care Team (Late st Contact Info) Description 05/08/2020 Lab Requisition [facility] Pathology & Laboratory Medicine - [facility] [address] [place] [address] Outr Resulting Lab, Provider Social History Tobacco Use Types Packs/Day Years Used Date Smoking Tobacco: Never Smokeless Tobacco: Never Alcohol Use Standard Drinks/Week Comments Yes 0 (1 standard drink = 0.6 oz [...] asked 11/24/2019 PHQ-2 Answer Date Recorded PHQ-2 Score 2 11/21/2019 Hunger Vital Sign Answer Date Recorded Worried About Running Out of Food in the Last Ye ar Never true 05/15/2019 Ran Out of Food in the Last Year Never true 05/15/2019 Interpersonal Safety Answer Date Record ed Physically Hurt Never 11/21/2019 Verbally Threaten Never 11/21/2019 Sex and Gender Information Value Date Recorded [...] Visit [facility] Adult Primary Care - [address] [address] Jasmyne Poe MD [address] [place] [phone] documented as of this encounter Procedures Procedure Name Priority Date/Time Associated Diagnosis Comments ZZCOVID-19 TEST [facility] PCR Today 05/08/2020 10:00 EST COVID-19 TESTING Routine 05/08/2020 10:0 0 EST documented in this encounter Results * COVID-19 TEST [facility] PCR (05/08/2020 10:00 EST) Swab ENTIRE NASOPHARYNX / Unknown 05/08/2020 10:00 EST 05/08/2020 15:53 EST Provider Outr Resulting Lab MICROBIOLOGY - GENERAL ORDERABLES [facility] [address] [place] [address] * COVID-19 TESTING (05/08/2020 10:00 EST) COVID-19 rt-PCR Result Negative Negative 05/09/2020 12:32 EST [facility] Comment: This test has [...] clinical observations, patient history, and epidemiological information. Testing was performed using the arianne SARS-CoV-2 assay ([employer] on the Arianne 6800 System Performing Lab Arianne 6800 [facility] 05/09/2020 12:32 EST [facility] Swab 05/08/2020 10:0 0 EST 05/08/2020 15:53 EST Provider Outr Resulting Lab MICROBIOLOGY - GENERAL ORDERABLES [facility] [address] [place] [address] documented in this encounter Visit Diagnoses Not on filedocumented in this encounter Additional Health Concerns Infection Onset Date Last Indicated Resolved Time R/O COVID-19 10/16/2020 10/16/2020 10/16/2020 5:30 EDT documented as of this encounter Care Teams Plastic Molder Relationship Specialty Start Date End Date Jasmyne Poe MD [address] [place] [phone] PCP - General 01/07/13 documented as of this encounter
--- OUTSIDE RECORDS SUMMARY | 2023-12-03 02:07 | XMS_ITS | Encounter Summary ---
Author Organization [facility] Address [address] [place] [address] Care Team Providers Care Outside Salesperson Name Role Phone Jasmyne Poe MD Primary Care Provider + Reason for Visit * Auth/Cert Specialty Diagnoses / Procedures Referred By Meka james Referred To Contact Diagnoses Paroxysmal atrial fibrillation (HCC-CMS) Paroxysmal atrial fibrillation ([facility]-CMS) [I48.0] Procedures NH EPHYS EVL TRNSPTL TX ATRIAL FIB ISOLAT PULM VEIN NH ECHO TRANSESOPHAG IMAGE ACQUISJ INTERP&REPORT Riley Wolf MD [address] [phone] Riley Wolf MD [address] [phone] Referral ID Status Reason Start Date Expiration Date Visits Re quested Visits Authorized [id number] 07/17/2020 1 1 Encounter Details Date Type Department Care Team (Late st Contact Info) Description 10/03/2020 8:11 EDT Anesthesia Event [place] [phone] EP [facility] [address] [place] [address] Marciano Jordan MD 111 [facility] 2 [place] [address] Anesthesia Record Procedure Summary Procedure Name Responsible Anesthesiologist Anesthesia Start Time Anesthesia Stop Time Ablation A-Fib (Chest) Marciano Jordan MD 10/03/20 0811 10/03/20 1200 Events Date Time Event Comment 10/03/2020 0733 In Room 0811 An Start The patient was re-evaluated immediately before moderate or deep sedation use, before anesthesia induction, or before the anesthesia procedure. 0813 An Start Data 0823 Proc Start 0839 An Induction The patient was reevaluated immediately before moderate or deep sedation use and before anesthesia induction. 0842 An Intubation 0845 Anesthesia Ready 1140 An Extubation 1151 an stop data 1152 Proc Fin 1152 Out of Room 1200 Handoff to RN I completed my handoff to the receiving nurse during which we: 1. Identified the patient 2. Identified the responsible provider 3. Reviewed the pertinent medical history 4. Discussed the surgical course 5. Reviewed intra-op anesthesia management and issues during anesthesia 6. Set expectations for post-procedure period 7. Allowed opportunity for questions and acknowledgement of understanding. 1200 An Stop Meds Name Total fentanyl citrate (PF) injection 50 mcg ketAMINE 5 mL prefilled syringe 20 mg midazolam (versed) 1 mg/mL 2 mL vial 2 m g lidocaine 2% (PF) injection glass vial 6 0 mg propOFol (DIPRIVAN) injection 180 mg dexmedetomidine injection - vial 12 mcg dexmedetomidine injection - vial 35.19 m cg heparin vial 1,000 units/mL 20,000 Units heparin infusion in 0.45% NaCl 3,063.33 Units protamine injection 50 mg sodium chloride 0.9 % (NS) infusion 1,00 0 mL lactated ringers (LR) infusion 100 mL * Agents Name Exp Sevoflurane (Aux) Insp Sevoflurane (Aux) O2 N2O Air * Blood No blood administrations on file. Lines, Drains, and Airways Type Details Placement Removal Peripheral IV 10/03/20; 0725; 20; 1.25; B Ponce Introcan; Anterior, Proximal, Right; Forearm; 10/04/20; 1250 10/03/20 0725 by Maya Carter RN 10/04/20 1250 by Candy Pittman NP Arterial Catheter 10/03/20; 0830 (mena hidalgo via procedure documentation); Pressure catheter (Art Line); Radial; Left; In OR by MD; 2% Chlorhexidine with IPA; Sub Q; No; 10/03/20; 124; Therapy completed; No complications, Pressure dressing applied, Pressure held minimum of 5 min. 10/03/20 0830 by Marciano Jordan MD 10/03/20 1245 by Jasmyne Olguin RN Arterial Catheter 10/03/20; 09; 09/19 09/08; 1800 10/03/20 09 by Marciano Jordan MD 10/03/20 1800 by Sharon Reese RN documented in this encounter Social History Tobacco [...] No 02/13/2018 documented as of this encounter OR Notes * Anesthesia Postprocedure Evaluation - Marciano Jordan MD - 10/03/2020 1201 EDT Patient: Kirsten Almaguer Vital signs were reviewed with the recovery nurse. Complete vitals history is available in the Epicflowsheets. Vitals Value Taken Time BP 126/57 10/03/20 1201 Temp 36.3 10/03/20 1201 Resp 13 10/03/20 1200 Pulse From Oximetry 57 BPM 10/03/20 1200 SpO2 100 % 10/03/20 1200 Vitals shown include unvalidated device data. Last Pain Score - Numeric Pain Level (Scale 1-10): 0 Type of Anesthesia - general Anesthesia Post Evaluation Post-procedure vitals reviewed and are stable. Level of consciousness: alert and oriented Temperature status: normothermia Respiratory status: airway patent Cardiovascular status: acceptable Hydration status: adequate Nausea/Vomiting: none Pain management: adequate Post-Op Assessment: patient tolerated procedure well with no complications Patient participation: able to participate Disposition: inpatient Anesthesia Complications: No apparent anesthesia complications * Anesthesia Procedure Notes - Marciano Jordan MD - 10/03/2020 0859 EDT Associated Order(s): Arterial Line Placement Arterial Line Placement Date/Time: 10/03/2020 8:30 Staffing Performed: anesthesiologist Preparation: Patient was prepped and draped in the usual sterile fashion. Indications: hemodynamic monitoring Location: left radial Anesthesia: local infiltration Anesthesia: Local Anesthetic: lidocaine 1% without epinephrine Sedation: Patient sedated: yes Sedation type: anxiolysis Sedatives: fentanyl, midazolam and see MAR for details Vitals: Vital signs were monitored during sedation. Needle gauge: 20 Seldinger technique: Seldinger technique used Number of attempts: 4 (passes) Ultrasound Guided? noPost-procedure: dressing applied * Anesthesia Procedure Notes - Marciano Jordan MD - 10/03/2020 0857 EDT Associated Order(s): Airway Airway Date/Time: 10/03/2020 8:42 Urgency: elective Airway not difficult General Information and Staff Patient location during procedure: OR Anesthesiologist: Marciano Jordan MD Performed: anesthesiologist Indications and Patient Condition Indications for airway management: anesthesia Sedation level: GA Preoxygenated: yes Ventilation assessment: 2 - Oral airway inserted Final Airway Details Final airway type: endotracheal airway Successful airway: ETT Cuffed: yes Successful intubation technique: direct laryngoscopy Facilitating devices/methods: intubating stylet Endotracheal tube insertion site: oral Blade: David Blade size: #3 ETT size (mm): 7.0 Cormack-Lehane Classification: grade I - full view of glottis Placement verified by: capnometry Measured from: teeth ETT to teeth (cm): 21 Number of attempts at approach: 1 Ventilation between attempts: BVM Number of other approaches attempted: 0 * Anesthesia Preprocedure Evaluation - Marciano Jordan MD - 10/02/2020 3096 EDT Anesthesia Preprocedure Evaluation Patient Medical History, including Anesthesia History reviewed. Chart and Nursing Notes reviewed, including NPO status and Medication History. apixaban (ELIQUIS) 5 mg tablet Take 1 Tab by mouth 2 times daily. Plan is for you to start eliquis after your cardiac ablation. aspirin chewable 81 mg tablet Take 81 mg by mouth every 24 hours. B Complex Vitamins (VITAMIN B COMPLEX) tablet Take 1 Each by mouth daily. cholecalciferol, Vitamin D3, 2,000 unit tablet Take by mouth. dilTIAZem (CARDIZEM CD) 180 mg ER capsule Take 1 Cap by mouth daily.Patient not taking: Reported on07/17/2020 DILTiazem (CARDIZEM) 30 mg tablet Take 1 Tab by mouth daily as needed for Other.Patient taking differently: Take 60 mg by mouth daily as needed for Other. As needed when in AFIB levomefolate calcium (L-METHYLFOLATE ORAL) Take 15 mg by mouth daily. levothyroxine (SYNTHROID) 50 mcg tablet Take 1 Tab by mouth daily. Magnesium 250 mg tablet Take 1 Each by mouth daily. melatonin 3 mg tablet Take by mouth at bedtime. MULTIVIT &MINERALS/FERROUS FUM (MULTI VITAMIN ORAL) Take by mouth. pantoprazole (PROTONIX) 40 mg tablet Take one tablet daily the 3 days prior to your ablation and for 30 days afterwards. ?? Additional ROS/History Findings: Allergies Allergen Reactions ??? Penicillins Anaphylaxis Tolerates cephalexin ??? Sulfa (Sulfonamide Antibiotics) Rash Review of Systems Past Medical History: Diagnosis Date ??? A-fib (HCC-CMS) paroxysmal , currently on diltiazem ??? Anxiety 2003 on zoloft in the past ??? Aortic valve disease mild stenosis ??? History of epidural anesthesia and spinal , w/o issue ??? History of gestational diabetes resolved w/ diet and exercise ??? Hypertension with episdes of anxiety in the past ??? Hypothyroidism tx w/ meds ??? Rheumatoid arthritis (HCC-CMS) poss. she is currently being seen by rheumatology - gets occas flare-ups ??? Rotator cuff injury 01/19/2014 Right shoulder ??? Sleep apnea tested , no treatment recommended Relevant Problems Anesthesia (+) RAJ (obstructive sleep apnea) PULMONARY (+) RAJ (obstructive sleep apnea) CARDIOVASCULAR (+) Mild aortic stenosis (+) PAF (paroxysmal atrial fibrillation) (HCC-CMS) (+) Paroxysmal atrial fibrillation (HCC-CMS) ENDO/GI (+) Acquired hypothyroidism ECHO 09/2019 Summary: ?? 1. Left ventricle: The cavity [...] normal. PA peak pressure: 36mm Hg (S). Physical Exam Airway Mallampati: II TM distance: >3 FB Neck ROM: full Cardiovascular Dental - normal exam Pulmonary Abdominal Anesthesia Plan ASA 2 Anesthesia Type - general Anesthesia Plan Details to include - arterial line. Anesthesia plan and risks discussed. Informed consent obtained from patient. PAT Note Notes from 09/02/20 through 10/02/20 No notes of this type exist for this encounter. documented in this encounter Plan of Treatment Upcoming Encounters Date Type Department Care Team (Late st Contact Info) Description 05/20/2024 14:45 EST Office Visit [facility] - [place] [address] [place], [place] [phone] Jasmyne oPe MD [address] [place] [phone] documented as of this encounter Procedures Procedure Name Priority Date/Time Associated Diagnosis Comments ANESTHESIA INTUBATION Routine 10/03/2020 8:42 EDT ANESTHESIA ARTERIAL LINE PLACEMENT Routine 10/03/2020 8:30 EDT documented in this encounter Results * Airway (10/03/2020 8:42 EDT) Narrative [facility] POINT OF CARE - 10/03/2020 8:42 EDT Marciano Jordan MD ? 10/03/2020 ??8:59 Airway Date/Time: 10/03/2020 8:42 Urgency: elective Airway not difficult General Information and Staff Patient location during procedure: OR Anesthesiologist: Marciano Jordan MD Performed: anesthesiologist Indications and Patient Condition Indications for airway management: anesthesia Sedation level: GA Preoxygenated: yes Ventilation assessment: 2 - Oral airway inserted Final Airway Details Final airway type: endotracheal airway Successful airway: ETT Cuffed: yes Successful intubation technique: direct laryngoscopy Facilitating devices/methods: intubating stylet Endotracheal tube insertion site: oral Blade: David Blade size: #3 ETT size (mm): 7.0 Cormack-Lehane Classification: grade I - full view of glottis Placement verified by: capnometry Measured from: teeth ETT to teeth (cm): 21 Number of attempts at approach: 1 Ventilation between attempts: BVM Number of other approaches attempted: 0 Marciano Jordan MD ANESTHESIA GRANDFIELDSusan ROCHAMALINDA Performing Organization Address [facility] Phone Number [facility] * Arterial Line Placement (10/03/2020 8:30 EDT) Narrative [facility] POINT OF CARE - 10/03/2020 8:30 EDT Marciano Jordan MD ? 10/03/2020 ??9:00 Arterial Line Placement Date/Time: 10/03/2020 8:30 Staffing Performed: anesthesiologist Preparation: Patient was prepped and draped in the usual sterile fashion. Indications: hemodynamic monitoring Location: left radial Anesthesia: local infiltration Anesthesia: Local Anesthetic: lidocaine 1% without epinephrine Sedation: Patient sedated: yes Sedation type: anxiolysis Sedatives: fentanyl, midazolam and see MAR for details Vitals: Vital signs were monitored during sedation. Needle gauge: 20 Seldinger technique: Seldinger technique used Number of attempts: 4 (passes) Ultrasound Guided? noPost-procedure: dressing applied Marciano Jordan MD ANESTHESIA [facility] Performing Organization Address [facility] Phone Number [facility] documented in this encounter Visit Diagnoses Not on filedocumented in this encounter Administered Medications Inactive Administered Medications - up to 3 most recent administrations Medication Order MAR Action Action Date Dose Rate Site dexmedeTOMIDine (PRECEDEX) injection intravenous, FA IP EQF CONTINUOUS PRN FOR ONE STEP MEDS, Starting on Fri10/03/20 at 0816, Until Fri10/03/20 at 1200, Routine, Anesthesia Intraprocedure Rate Change 10/03/2020 10:17 EDT 0.15 mcg/kg/hr 0.121 mL/hr Rate Change 10/03/2020 9:14 EDT 0.1 mcg/kg/hr 0.081 mL/hr New Bag 10/03/2020 8:20 EDT 0.15 mcg/kg/hr 0.121 mL/hr dexmedeTOMIDine (PRECEDEX) injection intravenous, PRN, Starting on Fri10/03/20 at 0828, Until Fri10/03/20 at 1200, Routine, Anesthesia Intraprocedure Given 10/03/2020 8:41 EDT 8 mcg Given 10/03/2020 8:28 EDT 4 mcg fentaNYL citrate (PF) injection intravenous, PRN, Starting on Fri10/03/20 at 0829, Until Fri10/03/20 at 1200, Routine, Anesthesia Intraprocedure Given 10/03/2020 8:29 EDT 50 mcg heparin 1,000 unit/mL injection intravenous, PRN, Starting on Fri10/03/20 at 0930, Until Fri10/03/20 at 1200, Routine, Anesthesia Intraprocedure Given 10/03/2020 10:50 EDT 4,000 Units Given 10/03/2020 10:12 EDT 4,000 Units Given 10/03/2020 9:30 EDT 12,000 Units heparin in 1/2 NS 25,000 unit/250 mL infusion intravenous, PRN, Starting on Fri10/03/20 at 0931, Until Fri10/03/20 at 1200, Routine, Anesthesia Intraprocedure Rate Change 10/03/2020 10:50 EDT 1,800 Units/hr 18 mL/hr Rate Change 10/03/2020 10:12 EDT 1,600 Units/hr 16 mL/hr New Bag 10/03/2020 9:31 EDT 1,200 Units/hr 12 mL/hr ketAMINE in NaCl, iso-osmotic (KETALAR) 50 mg/5 mL (10 mg/mL) IV injection intravenous, PRN, Starting on Fri10/03/20 at 0839, Until Fri10/03/20 at 1200, Routine, Anesthesia Intraprocedure Given 10/03/2020 8:39 EDT 20 mg lactated ringers (LR) infusion intravenous, FA IP EQF CONTINUOUS PRN FOR ONE STEP MEDS, Starting on Fri10/03/20 at 1114, Until Fri10/03/20 at 1200, Routine, Anesthesia Intraprocedure New Bag 10/03/2020 11:14 EDT lidocaine (PF) 20 mg/mL (2 %) injection intravenous, PRN, Starting on Fri10/03/20 at 0841, Until Fri10/03/20 at 1200, Routine, Anesthesia Intraprocedure Given 10/03/2020 8:41 EDT 60 mg midazolam (PF) (VERSED) injection intravenous, PRN, Starting on Fri10/03/20 at 0814, Until Fri10/03/20 at 1200, Routine, Anesthesia Intraprocedure Given 10/03/2020 8:16 EDT 0.5 mg Given 10/03/2020 8:14 EDT 1.5 mg propOFol (DIPRIVAN) injection intravenous, PRN, Starting on Fri10/03/20 at 0839, Until Fri10/03/20 at 1200, Routine, Anesthesia Intraprocedure Given 10/03/2020 8:39 EDT 180 mg protamine injection intravenous, PRN, Starting on Fri10/03/20 at 1134, Until Fri10/03/20 at 1200, Routine, Anesthesia Intraprocedure Given 10/03/2020 11:34 EDT 50 mg sodium chloride 0.9 % (NS) infusion 30 mL/hr, intravenous, CONTINUOUS, Starting on Fri10/03/20 at 0730, Until Fri10/03/20 at 1524, Routine, Preprocedure Rate Change 10/03/2020 11:12 EDT 1000 mL/hr Continued by Anesthesia 10/03/2020 8:11 EDT 30 mL/hr New Bag 10/03/2020 7:30 EDT 30 mL/hr 30 mL/hr documented in this encounter Care Teams Outside Salesperson Relationship Specialty Start Date End Date Jasmyne Poe MD [address] [place] [phone] PCP - General 01/07/13 documented as of this encounter
--- OUTSIDE RECORDS SUMMARY | 2023-12-03 02:07 | XMS_ITS | Encounter Summary ---
Author Organization [facility] Address [address] [place] [address] Care Team Providers Care Install Technician Name Role Phone Jasmyne Poe MD Primary Care Provider + Encounter Details Date Type Department Care Team (Latest Contact Info) Description 09/27/2020 Travel Social History Tobacco Use Types Packs/Day [...] Info) Description 05/20/2024 14:45 EST Office Visit [facility] [address] [phone] Jasmyne Poe MD [address] [place] [phone] documented as of this encounter Visit Diagnoses Not on filedocumented in this encounter Care Teams Install Technician Relationship Specialty Start Date End Date Jasmyne Poe MD [address] [place] [phone] PCP - General 01/07/13 documented as of this encounter
--- OUTSIDE RECORDS SUMMARY | 2023-12-03 02:07 | XMS_ITS | Encounter Summary ---
Author Organization [facility] Address [address] [place] [address] Care Team Providers Care Senior Game Advisor Name Role Phone Jasmyne Poe MD Primary Care Provider + Encounter Details Date Type Department Care Team (Latest Contact Info) Description 10/03/2020 Travel Social History Tobacco Use Types Packs/Day [...] Info) Description 05/20/2024 14:45 EST Office Visit [facility] [address] [phone] Jasmyne Poe MD [address] [place] [phone] documented as of this encounter Visit Diagnoses Not on filedocumented in this encounter Care Teams Senior Game Advisor Relationship Specialty Start Date End Date Jasmyne Poe MD [address] [place] [phone] PCP - General 01/07/13 documented as of this encounter
--- OUTSIDE RECORDS SUMMARY | 2023-12-03 02:07 | XMS_ITS | Encounter Summary ---
Author Organization [facility] Address [address] [place] [address] Care Team Providers Care Grit Removal Operator Name Role Phone Jasmyne Poe MD Primary Care Provider + Reason for Visit * Reason Onset Date Comments Medications Refill 08/15/2020 Encounter Details Date Type Department Care Team (Late st Contact Info) Description 08/15/2020 Refill [facility] Adult [facility] - [place] [address] [place] [address] Jasmyne Poe MD [address] [place] [phone] Medications Refill Social History Tobacco Use [...] mouth daily. 90 Tab 1 08/15/2020 03/21/2021 documented in this encounter Miscellaneous Notes * Telephone Encounter - Nallely Hutchinson RN - 08/15/2020 1624 EDT Medication(s) Requested: levothyroxine Preferred Pharmacy: Merged with [facility] Is patient out of medication? Unknown Last Refill Date: 05/02/20 Last Visit Date with Ordering Provider: 05/31/20 Next Non-Acute Visit Date Scheduled with Care Team: Yes. 06/20/21 NALLELY HUTCHINSON RN 08/15/2020 16:25 * Telephone Encounter - Nallely Hutchinson RN - 08/15/2020 1624 EDTFrom: Kirsten Almaguer To: Office of Jasmyne Poe MD Sent: 08/15/2020 16:20 EDT Subject: Medication Renewal Request Refills have been requested for the following medications: levothyroxine (SYNTHROID) 50 mcg tablet [Jasmyne Poe MD] Preferred pharmacy: [address] documented in this encounter Plan of Treatment Upcoming Encounters Date Type Department Care Team (Late st Contact Info) Description 05/20/2024 14:45 EST Office Visit [facility] Adult Primary Care - [address] [address] Jasmyne Poe MD [address] [place] [phone] documented as of this encounter Visit Diagnoses Diagnosis Acquired hypothyroidism- Primary Unspecified hypothyroidism documented in this encounter Discontinued Medications Medication Sig Discontinue Reason Start Date End Da te levothyroxine (SYNTHROID) 50 mcg tablet Take 1 Tab by mouth daily. Reorder 05/02/2020 08/15/2020 documented as of this encounter Care Teams Grit Removal Operator Relationship Specialty Start Date End Date Jasmyne Poe MD [address] [place] [phone] PCP - General 01/07/13 documented as of this encounter
--- OUTSIDE RECORDS SUMMARY | 2023-12-03 02:07 | XMS_ITS | Encounter Summary ---
Author Organization [facility] Address [address] [place] [address] Care Team Providers Care Java Developer Analyst Name Role Phone Jasmyne Poe MD Primary Care Provider + Encounter Details Date Type Department Care Team (Latest Contact Info) Description 09/30/2020 11:15 EDT Phlebotomy Only [facility] - [employer] [address] [place] [address] Atrial fibrillation, unspecified type ([facility]) Social History Tobacco Use Types Packs/Day Years [...] Info) Description 05/20/2024 14:45 EST Office Visit [facility] Adult Primary Care - [address] [phone] Jasmyne Peo MD [address] [place] [phone] documented as of this encounter Procedures Procedure Name Priority Date/Time Associated Diagnosis Comments ZZCOVID-19 TEST [facility] PCR Today 09/30/2020 11:20 EDT Atrial fibrillation, unspecified type (HCC-CMS) COVID-19 TESTING Routine 09/30/2020 11:2 0 EDT Atrial fibrillation, unspecified type (HCC-CMS) documented in this encounter Results * COVID-19 TEST [facility] PCR (09/30/2020 11:20 EDT) Swab BOTH ANTERIOR NARES / Unknown Swab / Unknown 09/30/2020 11:20 EDT 09/30/2020 11:20 EDT Riley Wolf MD MICROBIOLOGY - [facility] ORDERABLES [facility] [address] [place] [address] * COVID-19 TESTING (09/30/2020 11:20 EDT) COVID-19 rt-PCR Result Negative Negative 10/01/2020 14:02 EDT [facility] Comment: This test has [...] developed and its performance characteristics determined by [facility]. It has not been cleared or approved [...] testing. This test is based on the [facility] COVID-19 Emergency Use Authorization (EUA) assay, with minor modification as defined by the FDA Performed on the Rootlesso 7 Flex RT-PCR System. Performing Lab [facility] 10/01/2020 14:02 EDT [facility] Swab BOTH ANTERIOR NARES / Unknown Swab / Unknown 09/30/2020 11:20 EDT 09/30/2020 11:20 EDT Riley Wolf MD MICROBIOLOGY - [facility] ORDERABLES [facility] [address] [place] [address] documented in this encounter Visit Diagnoses Diagnosis Atrial fibrillation, unspecified type ([facility]) documented in this encounter Care Teams Java Developer Analyst Relationship Specialty Start Date End Date Jasmyne Poe MD [address] [place] [phone] PCP - General 01/07/13 documented as of this encounter
--- OUTSIDE RECORDS SUMMARY | 2023-12-03 02:07 | XMS_ITS | Encounter Summary ---
Author Organization [facility] Address [address] [place] [address] Care Team Providers Care Oncology Rn Name Role Phone Jasmyne Poe MD Primary Care Provider + Reason for Visit * Auth/Cert Specialty Diagnoses / Procedures Referred By Meka james Referred To Contact Diagnoses Paroxysmal atrial fibrillation (HCC-CMS) Paroxysmal atrial fibrillation ([facility]) [I48.0] Procedures IA EPHYS EVL TRNSPTL TX ATRIAL FIB ISOLAT PULM VEIN IA ECHO TRANSESOPHAG IMAGE ACQUISJ INTERP&REPORT James Barrera MD [address] [place] [phone] James Barrera MD [address] [place] [phone] Referral ID Status Reason Start Date Expiration Date Visits Re quested Visits Authorized [id number] 07/17/2020 1 1 Encounter Details Date Type Department Care Team (Late st Contact Info) Description 10/03/2020 6:29 EDT - 10/04/2020 12:59 EDT Hospital Encounter [facility] Cardiac Unit [address] [place] [address] James Barrera MD [address] [place] [address], [place], Level [address] [place] [address] Randy Morillo MD [address] [facility] [address] [place] [address] Paroxysmal atrial fibrillation (HCC-CMS) Discharge Disposition: Home or Self Care Social [...] Sign Reading Time Taken Comments Blood Pressure 144/72 10/04/2020 0743 EDT Pulse 70 10/04/2020 0743 EDT Temperature 35.9 ??C (96.6 ??F) 10/04/2020 0743 EDT Respiratory Rate 18 10/04/2020 0743 EDT Oxygen Saturation 96% 10/04/2020 0743 EDT Inhaled Oxygen Concentration - - Weight [...] of this encounter Discharge Summaries * Latoya Alcazar, MEASUREMENT TECHNICIAN - 10/03/2020 1159 EDT Cardiology Discharge Summary Primary Care Provider: Jasmyne Poe Attending Physician: Randy Morillo* Admit Date: 10/03/2020 Discharge Date: 10/04/20 Disposition: Home or self care Problems and Procedures Admitting Diagnosis: Paroxysmal atrial fibrillation Final Hospital Diagnosis: Paroxysmal atrial fibrillation Additional Problems Managed in the Hospital Active Hospital Problems Diagnosis Date Noted ??? *Paroxysmal atrial fibrillation ([facility]) 07/21/2020 Added automatically from request for surgery [id number] Resolved Hospital Problems No resolved problems to display. Principal Procedure: AF Ablation - Enc/isolation of RPVs and LPVs Date: 10/03/2020 AF Ablation Maryann/Halevy/Calame Baseline - Sinus Cycle Length 900 ms [...] dilt - Scheduled toradol - PPI x30d Amaya Faulkner MD Cardiac Electrophysiology Fellow 10/03/2020 11:38 [...] met with Dr. Hughes and Dr. Maryann Noonan of 2020 and the decision was made [...] for three months following the procedure. Discontinue xbreihl54 mg daily. Will be taking Pantoprazole 40 mg daily for the next 30 days for esophageal protection post ablation - Appointment in 2 weeks for a post procedure check with Lis Jimenez APRN at 8:40 am on 10/18/20 - [facility] - Cardiology post ablation follow up on 04/02/21 at [address] James Barrera at the cardiology clinic of [facility] Allergies and Immunizations Allergies Allergen Reactions ??? [...] 05/21/2017 Discharge Follow Up Appointments Scheduled with [facility] Upcoming Appointments Oct 18, 2020 8:40 Post Hospital Visit with Ana Jimenez APRN [facility] Cardiology [facility] (--) [address] [place] [address] [place] [address] Post Procedure Appointments 1. POST PROCEDURE FOLLOW-UP APPOINTMENT With: ANA JIMENEZ APRN on September at 8:40AM at the [address] [place] [address] Cardiology Clinic in [place]. PHONE: [phone] 2. SIX MONTH FOLLOW UP APPOINTMENT With: Dr. JAMES BARRERA on March at 9:00AM at the [address] [place] [address] Cardiology Clinic in [place]. PHONE: [phone] Latoya Alcazar APRN 10/04/2020 10:35 Associated attestation - Randy Morillo MD - 10/04/2020 1359 EDT Attestation statement: Supervising Physician. I saw [...] and stay in Afib please call your Graduate School Dean before 24 hours are up. If you [...] APRN on September at 8:40AM at the [address] [place] [address] Cardiology Clinic in [place]. PHONE: [phone] SIX MONTH FOLLOW UP APPOINTMENT With: Dr. JAMES BARRERA on March at 9:00AM at the [address] [place] [address] Cardiology Clinic in [place]. PHONE: [phone] Should the above appointment(s) not be convenient, please call at the number(s) listed above to re-schedule to a time that works for you. We are here to help, so should you need assistance feel free to call anyone listed below with questions. EP Procedure Velvet Steamer - [phone] Clinic nurse for medication questions - [phone] If you have any questions or concerns, please don't hesitate to call the Cardiac Arrhythmia Serviceat [facility] [place] [phone] (or dial [phone]) documented in this encounter Medications at Time [...] Code Departure Means Destination Home or Self Retirement documented in this encounter Progress Notes * [...] documented in this encounter H&P Notes * Amaya Faulkner MD - 10/02/2020 3956 EDT Electrophysiology Cardiology Ablation H&P PCP: Jasmyne [...] acting AV luis fernando blockers. Follows at [facility]. Past Medical History: Past Medical History: Diagnosis Date ??? A-fib ([facility]) paroxysmal , currently on diltiazem ??? Anxiety 2002 on zoloft in the past ??? Aortic valve disease mild stenosis ??? History of epidural anesthesia and spinal , w/o issue ??? History of gestational diabetes resolved w/ diet and exercise ??? Hypertension with episdes of anxiety in the past ??? Hypothyroidism tx w/ meds ??? Rheumatoid arthritis ([facility]) poss. she is currently being seen [...] For this reason, the patient (or responsible alliance party) has agreed to remain FULL CODE for [...] as well as use of antiarrhythmic drugs. Amaya Faulkner MD 10/03/2020 8:13 Cardiac Electrophysiology Fellow Associated attestation - James Barrera MD - 10/20/2020 1140 EDT I have seen and examined the patient and agree with the above history and physical exam and assessment and plan. James Barrera MD documented in this encounter Procedure Notes * Amaya Faulkner MD - 10/03/2020 1137 EDTProcedure(s): ABLATION A-FIB Pre-Procedure Diagnose(s): PAF (paroxysmal atrial fibrillation) ([facility]) AF Ablation Maryann/Lucie/Fernando ?? Baseline - [...] - Scheduled toradol - PPI x30d ?? Amaya Faulkner MD Cardiac Electrophysiology Fellow 10/03/2020 11:38 Associated attestation - James Barrera MD - 10/20/2020 1140 EDT I was present for the cotton and critical portions of the procedure. documented in this encounter Miscellaneous Notes * Plan of Care - Candy Sr - 10/04/2020 1144 EDT [id number] Kirsten Rocha 55 y.o. female Length of Stay: 0 [...] Care - Michell Erazo RN - 10/03/2020 8047 EDT Problem: Daily Care Plan Goals Goal: [...] 05/20/2024 14:45 EST Office Visit [facility] Adult Primary Care - [address] [phone] Jasmyne Poe MD [address] [place] [phone] documented as of this encounter Procedures [...] EDT) 10/06/2020 14:4 8 EDT Scan 2 Death Claim Clerk PROCEDURE/MINOR BRENDA GICAL ORDERABLES * ECG REPORT - SCANNED (10/06/2020 14:48 EDT) 10/06/2020 14:4 8 EDT Scan 2 Death Claim Clerk PROCEDURE/MINOR BRENDA GICAL ORDERABLES * ECG REPORT - SCANNED (10/03/2020 17:54 EDT) 10/03/2020 17:5 4 EDT Scan 2 Death Claim Clerk PROCEDURE/MINOR BRENDA GICAL ORDERABLES * EKG 12-LEAD (10/03/2020 13:14 EDT) 10/03/2020 13:1 4 EDT Narrative [facility] EKG - 10/03/2020 17:48 EDT ? [facility] ? Test Date: ?2020-10-03 Pat Name: ? KIRSTEN PORTER ? Department: ?? PACU ? Room: ? OR Gender: ? Female ? Physical Medicine Specialist: ?? [id number] : ?1965 ? Requested By: ELIZABETHLaura AMAYA MARINELLI Order Number: [id number] ? Reading : ?? LUKE STAPLETON MD ? Measurements Intervals ?[place] ? Rate: ? 54 ? P: ?74 IA: ? 166 ?QRS: ?53 QRSD: ? 89 ? T: ?37 QT: ? 431 ? QTc: ?411 ? Interpretive Statements SINUS BRADYCARDIA No previous ECG available for comparison I reviewed the tracing and have either agreed or edited the findings in this report. Electronically Signed On 10-03-2020 17:48:10 EDT by LUKE STAPLETON MD. Procedure Note Luke Stapleton MD - 10/03/2020 [facility] Test Date: 2020-10-03 Pat Name: KIRSTEN ROCHA Department: PACU Room: OR Gender: Female Physical Medicine Specialist: [id number] : 1965 Requested By: LUCIE MOORE Order Number: [id number] Reading MD: LUKE STAPLETON MD Measurements Intervals [place] Rate: 54 P: 74 IA: 166 QRS: 53 QRSD: 89 T: 37 QT: 431 QTc: 411 Interpretive Statements SINUS BRADYCARDIA No previous ECG available for comparison I reviewed the tracing and have either agreed or edited the findings inthis report. Electronically Signed On 10-03-2020 17:48:10 EDT by LUKE SHANNON. Amaya Faulkner MD CARDIAC ECG ORDERAB LES [facility] EKG * ABLATION A-FIB (10/03/2020 11:52 EDT) Anatomical Region Laterality Modality Cardiac Electrop hysiology 10/03/2020 8:00 EDT Narrative 10/09/2020 8:18 EDT *Cardiology* [address] [place] [address] Electrophysiology Study with Ablation Patient: Kirsten Rocha ? Study Date: ?10/03/2020 ?Accession #: ? [id number] : ? 1965 Referring: Attending: James Barrera Fellow: ?Amaya Faulkner MD Assisting: Marciano King RN Copies: ATTESTATION: I, Dr. Amaya Faulkner was the initial author of this [...] 74 - 137 Seconds 10/03/2020 11:43 EDT [facility] Blood ARTERIAL BLOOD / Unknown 10/03/2020 11:23 EDT 10/03/2020 11:43 EDT Narrative [facility] - 10/03/2020 11:43 EDT Therapeutic Interventional range is dependent upon patient population and procedure type Test Performed by Cardiology Randy Morillo MD POINT OF CARE TEST ORDERABLES [facility] [address] [place] [address] * (ABNORMAL) POCT ACTIVATED CLOTTING TIME, KAOLIN ISTAT (10/03/2020 10:44 EDT) Activated Clotting Time, Arterial, i-STAT 279(H) 74 - 137 Seconds 10/03/2020 11:00 EDT [facility] Blood ARTERIAL BLOOD / Unknown 10/03/2020 10:44 EDT 10/03/2020 11:00 EDT [facility] LABORATORY SERVICES - 10/03/2020 11:00 EDT Therapeutic Interventional range is dependent upon patient population and procedure type Test Performed by Cardiology Randy Morillo MD POINT OF CARE TEST ORDERABLES Performing Organization Address [facility] Co de Phone Number [facility] [address] [place] [address] * (ABNORMAL) POCT ACTIVATED CLOTTING TIME, KAOLIN ISTAT (10/03/2020 10:03 EDT) Activated Clotting Time, Arterial, i-STAT 241(H) 74 - 137 Seconds 10/03/2020 10:22 EDT [facility] Blood ARTERIAL BLOOD / Unknown 10/03/2020 10:03 EDT 10/03/2020 10:22 EDT [facility] LABORATORY SERVICES - 10/03/2020 10:22 EDT Therapeutic Interventional range is dependent upon patient population and procedure type Test Performed by Cardiology Randy Morillo MD POINT OF CARE TEST ORDERABLES Performing Organization Address [facility] de Phone Number [facility] [address] [place] [address] * QUANT BETA HCG, (10/03/2020 7:27 EDT) Beta HCG Quant, <5 <5 mIU/ml 10/03/2020 8:29 EDT [facility] Comment: NOTE: : [...] & BLOOD GAS ORDERABLES Performing Organization Address [facility]/ZIP Co de Phone Number [facility] [address] [place] [address] * TYPE AND SCREEN (10/03/2020 7:27 EDT) ABO O 10/03/2020 8:23 EDT [facility] Rh Factor Positive 10/03/2020 8:23 EDT [facility] Antibody Screen Negative 10/03/2020 8:23 EDT [facility] Specimen Expires: 10/06/2020 @ 23:59 10/03/2020 8:23 EDT [facility] Blood VENOUS BLOOD / Unknown Venipuncture / Unknown 10/03/2020 7:27 EDT 10/03/2020 7:37 EDT James Barrera MD BLOOD BANK TESTS Performing Organization Address [facility] Co de Phone Number [facility] [address] [place] [address] * (ABNORMAL) PROTIME (10/03/2020 7:27 EDT) I.N.R. 1.1 0.9 - 1.1 Ratio 10/03/2020 8:12 EDT [facility] Pro Time 12.8(H) 10.4 - 12.6 secs 10/03/2020 8:12 EDT [facility] Blood VENOUS BLOOD / Unknown Venipuncture / Unknown 10/03/2020 7:27 EDT 10/03/2020 7:34 EDT Narrative [facility] - 10/03/2020 8:12 EDT Moderate Intensity Coumadin INR = 2.0-3.0 Adjustments in anticoagulant therapy dose should be based on the INR and NOT on the Protime. James Barrera MD HEMATOLOGY & PF4 ORDERABLES Performing Organization Address City/[facility]/ZIP Co de Phone Number [facility] [address] [place] [address] * COMPLETE BLOOD COUNT (10/03/2020 7:27 EDT) WBC 5.30 4.00 - 12.40 K/cmm 10/03/2020 7:54 EDT [facility] RBC 4.36 3.86 - 5.04 M/cmm 10/03/2020 7:54 EDT [facility] Hemoglobin 13.3 11.6 - 15.2 gm/dL 10/03/2020 7:54 EDT [facility] HCT 38.1 34.9 - 44.4 % 10/03/2020 7:54 EDT [facility] MCV 87 81 - 98 fl 10/03/2020 7:54 EDT [facility] MCH 30.5 26.7 - 33.3 pg 10/03/2020 7:54 EDT [facility] MCHC 34.9 32.1 - 35.9 gm/dL 10/03/2020 7:54 EDT [facility] RDW-CV 12.7 <14.7 % 10/03/2020 7:54 T [facility] RDW-SD 40.4 <50.4 fl 10/03/2020 7:54 EDT [facility] PLT 208 141 - 377 K/cmm 10/03/2020 7:54 EDT [facility] MPV 9.5 9.5 - 12.7 fl 10/03/2020 7:54 T [facility] Blood VENOUS BLOOD / Unknown Venipuncture / Unknown 10/03/2020 7:27 EDT 10/03/2020 7:34 EDT James Barrera MD HEMATOLOGY & PF4 ORDERABLES [facility] [address] [place] [address] * CREATININE (10/03/2020 7:27 EDT) Creatinine 0.53 0.52 - 1.04 mg/dL 10/03/2020 8:10 EDT [facility] eGFR 108 >60 mL/min/1.7 3m2 10/03/2020 8:10 EDT [facility] Comment:eGFR calculated usraul g CKD-EPI equation for non- Americans. Multiply eGFR by 1.16 for patients. Blood VENOUS BLOOD / Unknown Venipuncture / Unknown 10/03/2020 7:27 EDT 10/03/2020 7:34 EDT James Barrera MD CHEMISTRY & BLOOD GAS ORDERABLES Performing Organization Address [facility] Co de Phone Number [facility] [address] [place] [address] * BUN (10/03/2020 7:27 EDT) BUN 14 10 - 26 mg/dL 10/03/2020 8:10 EDT [facility] Blood VENOUS BLOOD / Unknown Venipuncture / Unknown 10/03/2020 7:27 EDT 10/03/2020 7:34 EDT James Barrera MD CHEMISTRY & BLOOD GAS ORDERABLES Performing Organization Address City/[facility] Co de Phone Number [facility] [address] [place] [address] * ELECTROLYTES (10/03/2020 7:27 EDT) Sodium 144 136 - 145 mEq/L 10/03/2020 8:10 EDT [facility] Potassium 4.0 3.5 - 5.0 mEq/L 10/03/2020 8:10 T [facility] Chloride 103 96 - 110 mEq/L 10/03/2020 8:10 EDT [facility] CO2 Total 29 22 - 32 mEq/L 10/03/2020 8:10 EDT [facility] Blood VENOUS BLOOD / Unknown Venipuncture / Unknown 10/03/2020 7:27 EDT 10/03/2020 7:34 EDT James Barrera MD CHEMISTRY & BLOOD GAS ORDERABLES [facility] [address] [place] [address] documented in this encounter Visit Diagnoses Diagnosis [...] 2131, Routine 2131 (Given - Provider: Sharon Rios, FARNAZ) dilTIAZem (TIAZAC) ER capsule 120 mg 120 mg, oral, DAILY, First dose on Fri10/04/20 at 0900, Until Discontinued, Routine 0810 (Given - Provid er: Candy Sr) ketOROLAC (TORADOL) injection 15 mg 15 mg, intravenous, EVERY 6 HOURS, 8 doses, First dose on Fri10/03/20 at 1200, Last dose on Fri10/05/20 at 0600, Routine 1213 (Given - Provider: Pablo Hernandez RN)1809 (Given - Provider: Michell Erazo, FARNAZ) 0109 (Given - Provider: Sharon Rios RN)0511 [...] Preprocedure 0730 (New Bag - Provider: Charla Carter RN)0811 (Continued by Anesthesia - Provider: James Barrera [...] 10/04/2020 documented in this encounter Care Teams Oncology Rn Relationship Specialty Start Date End Date Jasmyne Poe MD [address] [place] [phone] PCP - General 01/07/13 documented as of this encounter
--- OUTSIDE RECORDS SUMMARY | 2023-12-03 02:07 | XMS_ITS | Encounter Summary ---
Author Organization [facility] Address [address] [place] [address] Care Team Providers Care Horse Trainer Name Role Phone Jasmyne Poe MD Primary Care Provider + Reason for Referral * Laboratory Services (Routine) - New Request Specialty Diagnoses / Procedures Referred By Meka t Referred To Contact Diagnoses Acquired hypothyroidism Procedures TSH Jasmyne Poe MD [address] [place] [address] Referral ID Status Reason Start Date Expiration Date V isits Requested Visits Authorized [id number] New Request 05/15/2020 1 1 * Laboratory Services (Routine) - New Request Specialty Diagnoses / Procedures Referred By Meka t Referred To Contact Diagnoses Encounter for preventive health examination Procedures HEMOGLOBIN A1C Jasmyne Poe MD [address] [place] [phone] Referral ID Status Reason Start Date Expiration Date V isits Requested Visits Authorized [id number] New Request 05/15/2020 1 1 * Laboratory Services (Routine) - New Request Specialty Diagnoses / Procedures Referred By Contac t Referred To Contact Diagnoses Encounter for preventive health examination Procedures COMPREHENSIVE METABOLIC PANEL (CMP) Jasmyne Poe MD [address] [place] [phone] Referral ID Status Reason Start Date Expiration Date V isits Requested Visits Authorized [id number] New Request 05/15/2020 1 1 Reason for Visit * Reason Onset Date Comments Pre-visit Orders 05/15/2020 Encounter Details Date Type Department Care Team (Late st Contact Info) Description 05/15/2020 Orders Only [facility] Adult Primary Care - [address] [address] Jasmyne Poe MD [address] [place] [phone] Encounter for preventive health examination (Primary Dx); Acquired hypothyroidism Social History Tobacco Use Types [...] Answer Date Record ed Physically Hurt Never 05/15/2020 Verbally Threaten Not on file 05/15/2020 Sex and Gender Information Value Date Recorded [...] No 02/13/2018 documented as of this encounter Progress Notes * Marj Solis - 05/15/2020 1612 EST Pre-visit orders pended and routed to AB for review and signature Marj Solis 05/15/2020 16:17 documented in this encounter Plan of Treatment Upcoming Encounters Date Type Department Care Team (Late st Contact Info) Description 05/20/2024 14:45 EST Office Visit [facility] Adult Primary Care - [address] [phone] Jasmyne Poe MD [address] [place] [phone] documented as of this encounter Results * TSH (05/23/2020 14:37 EST) TSH, External 2.27 [facility] Blood VENOUS BLOOD / Unknown 05/23/2020 14:37 EST Jasmyne Poe MD CHEMISTRY & BLOO D GAS ORDERABLES [facility] * HEMOGLOBIN A1C (05/23/2020 14:37 EST) Hemoglobin A1C, External 5.6 [facility] Est Avg Glucose, External [facility] Blood VENOUS BLOOD / Unknown 05/23/2020 14:37 EST Jasmyne Poe MD CHEMISTRY & BLOO D GAS ORDERABLES Performing Organization Address [facility] [address] [facility] Co de Phone Number [facility] * (ABNORMAL) COMPREHENSIVE METABOLIC PANEL (CMP) (05/23/2020 14:37 EST) GFR, Calculated, External >=60 [facility] Glucose, Serum, External 144 H [facility] Albumin, External 4.1 [facility] Total Alkaline Phosphatase, External 75 [facility] ALT, External 28 [facility] AST, External 17 [facility] BUN, External 15 [facility] Calculated Calcium, External - [facility] Calcium, External 8.8 [facility] Chloride, External 104 [facility] CO2, External 30.0 [facility] Creatinine, External 0.6 [facility] [...] BLOO D GAS ORDERABLES Performing Organization Address [facility] [address]/[facility] Co de Phone Number [facility] documented in this encounter Visit Diagnoses Diagnosis Encounter for preventive health examination- Primary Routine general medical examination at a health care facility Acquired hypothyroidism Unspecified hypothyroidism documented in this encounter Care Teams Horse Trainer Relationship Specialty Start Date End Date Jasmyne Poe MD [address] [place] [phone] PCP - General 01/07/13 documented as of this encounter
--- OUTSIDE RECORDS SUMMARY | 2023-12-03 02:07 | XMS_ITS | Encounter Summary ---
Author Organization [facility] Address [address] [place] [address] Care Team Providers Care Trust Operations Assistant Name Role Phone Jasmyne Poe MD Primary Care Provider + Reason for Visit * Reason Comments New Patient Visit * Consult (Routine) - Order Cancelled Specialty Diagnoses / Procedures Referred By Contromeo t Referred To Contact Cardiology Diagnoses PAF (paroxysmal atrial fibrillation) (HCC-CMS) Jasmyne Poe MD [address] [place] [phone] [facility] [address] [place] [id number] Referral ID Status Reason Start Date Expiration Date Visits Requested Visits Authorized [id number] Order Cancelled Specialty Services Required 11/24/2019 1 1 Encounter Details Date Type Department Care Team (Late st Contact Info) Description 03/03/2020 13:15 EST Office Visit [facility] [address] [place] [phone] Aditi Ashby NP [address] [facility] [address] [place] [address] PAF (paroxysmal atrial fibrillation) (HCC-CMS) (Primary Dx); Mild aortic stenosis Social History Tobacco Use Types Packs/Day Years [...] have Coronavirus / COVID-19? No / Unsure 02/08/2020 15:30 EDT documented as of this encounter Functional [...] as of this encounter Progress Notes * Aditi Ashby APRN - 03/03/2020 1315 EST Due to computer system disruption, additional clinical information for this visit is Scanned Note. For patients, please refer to guidance in [employer] on how to locate information. Generally this information will appear as a scanned documents saved in My Documents activity. documented in this encounter Plan of Treatment Upcoming Encounters Date Type Department Care Team (Late st Contact Info) Description 05/20/2024 14:45 EST Office Visit [facility] Adult Primary Care [address] [phone] Jasmyne Poe MD [address] [place] [phone] documented as of this encounter Visit Diagnoses Diagnosis PAF (paroxysmal atrial fibrillation) ([facility])- Primary Atrial fibrillation Mild aortic stenosis Aortic valve disorders documented in this encounter Care Teams Trust Operations Assistant Relationship Specialty Start Date End Date Jasmyne Poe MD [address] [place] [phone] PCP - General 01/07/13 documented as of this encounter
--- OUTSIDE RECORDS SUMMARY | 2023-12-03 02:07 | XMS_ITS | Encounter Summary ---
Author Organization [facility] Address [address] [place] [address] Care Team Providers Care Adult Daycare Coordinator Name Role Phone Jasmyne Poe MD Primary Care Provider + Reason for Visit * Reason Comments Follow-up Feeling good,better than usual. Encounter Details Date Type Department Care Team (Latest Contact Info) Description 02/08/2020 15:30 EDT Office Visit [facility] Rheumatology [address] [place] [address] Luke Sandhu MD [facility] Rheumatology [address] [place] [address] [place] [address] Undifferentiated connective tissue disease (HCC-CMS) (Primary Dx) Social History Tobacco Use [...] 15:30 EDT documented as of this encounter Last Filed Vital Signs Vital Sign Reading Time Taken Comments Blood Pressure 132/70 02/08/2020 1531 EDT Pulse - - Temperature 35.9 ??C (96.6 ??F) 02/08/2020 1531 EDT Respiratory Rate - - Oxygen Saturation - - Inhaled Oxygen Concentration - - Weight 81.2 kg (179 lb) 02/08/2020 153 EDT Height - - Body Mass Index 26.36 06/04/2019 0928 EST documented in this encounter Functional Status [...] * Patient Instructions* Luke Sandhu MD - 02/08/2020 15:30 EDT Rheum Clinic [phone] (4 months) Will schedule CT scan after talking to Radiology documented in this encounter Progress Notes * Luke Sandhu MD - 02/08/2020 1530 EDT [facility] Rheumatology Chief Complaint Patient presents with ??? Follow-up Feeling good,better than usual. HPI: Kirsten was referred by her primary care provider Jasmyne Poe from [facility] for evaluation of myalgias, polyarthralgias in the context of a positive antinuclear antibody test. The antinuclear antibody returned with 2 different titers: 1 with a titer of 1: 160 homogeneous and another with a 1: 640 in a centromere immunofluorescent pattern. Additionally elevated CRP was noted. Presenting chief complaint: Body/joint pain and stiffness with muscle weakness for approximately 4 years-good time/bad times. Difficulty walking when having flares or episodes. Kirsten is a 54-year-old with medical history notable for osteoarthritis, anxiety, hypothyroidism, paroxysmal atrial fibrillation, left foot wound. Kirsten states that she has had 2 infections inher feet which occurred last summer. The autoimmune work-up was initiated by Sweetie Fajardo dueto her concern about significant reaction to small wound that she was taking care of in Podiatry inaddition to her intermittent fatigue and myalgia/arthralgia episodes. She had considered screening for conditions including hypothyroidism, diabetes, systemic lupus erythematosus, Lyme disease. A Rheumatology referral was discussed at that time depending on the results of the testing she also had di scussed with her Primary Care Provider symptoms that she has had for approximately 4 years. She described pain all over involving legs, feet, back, neck, arms. 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 She has had what she describes as episodes or flares which are manifested by stiffness and achiness . The episodes are relatively infrequent. Her last episode was approximately 6 to 8 months prior topresentation. She had a positive antinuclear antibody with 2 different titers and patterns. She hadan elevated C-reactive protein. She had a slightly positive double-stranded DNA. Rheumatoid [...] formulation was as follows: Kirsten is a 54-year-old who presented with a 4-year history of [...] protein as well as a borderline positive emun-skkfln-lwyeyzlw DNA. According to Eular/ACR 2019 classification criteria she does not meet classification criteria for SLE. Initially one needs to have an entry criterion with a positive ALAINA which she does. Further thereare 7 clinical domains and 3 immunologic domains which are given numerical scores. A score of more than or equal to 10 with a positive ALAIAN is highly specific and sensitive for systemic lupus erythematosus. I would give her a total of 6 points for an aimb-xlqumr-vjxzxbfn DNA despite the fact that this is borderline positive. She does not meet other clinical domains or immunologic domains. I recommended expanding the database to look at other tests for risk of thrombosis including anticardiolipinantibodies or beta-2 glycoprotein antibodies. Lupus anticoagulant testing was negative. Further evaluation at the time of her appointment showed a positive anticentromere antibody at more than 8. Anti-centromere antibodies are found at approximately 30% of patients with systemic sclerosis and have the association with calcinosis and pulmonary hypertension. They are also found in approximately 15%of patients with primary biliary cholangitis. They are [...] might be contributing. She will be seeing [facility] cardiology and will be followed by Dr. Posey. She is taking aspirin 81 mg daily. Recent echocardiogram was done and showed peak pulmonary artery pressures of 36. She has lost approximately 30 pounds using a Nutrisystem diet. She did not get high-resolution CT scan which I had ordered for her. She did have pulmonary function test 03/19/2018 at [facility]. FVC 90%. FEV1 89%. FEV1/FVC 96%. FEF 25-7585%. FEF max 111% Current Outpatient Medications Medication ??? B Complex Vitamins (VITAMIN B COMPLEX) tablet ??? cholecalciferol, Vitamin D3, 2,000 unit tablet ??? DILTiazem (CARDIZEM CD) 240 mg ER capsule ??? DILTiazem (CARDIZEM) 30 mg tablet ??? levomefolate calcium (L-METHYLFOLATE ORAL) ??? levothyroxine (SYNTHROID) 50 mcg tablet ??? Magnesium 250 mg tablet ??? melatonin 3 mg tablet ? ? MULTIVIT &MINERALS/FERROUS FUM (MULTI VITAMIN ORAL) No current facility-administered medications for this visit. Allergies include: Penicillins and Sulfa (sulfonamide antibiotics) Past Medical History: Diagnosis Date ??? Anxiety 2003 on zoloft in the past ??? Gestational diabetes 2002 diet and exercise only ??? Hypertension with episdes of anxiety in the past ??? Obesity ??? Palpitations ??? Rotator cuff injury 01/19/2014 Right shoulder Family History Problem Relation Age of Onset [...] grandmother ??? Heart Attack Other 60 grandfather- [place] ??? Leukemia Son AML Review of Systems: Constitutional: No fevers. She does have fatigue. HEENT: No eye pain or previously diagnosed inflammatory eye conditions. She has eye dryness. She uses artificial tears. No vision loss. No hearing loss. No tinnitus. No mouth sores. No dry mouth. No facial rash. Cardiovascular: Will get chest discomfort with atrial fibrillation episodes Pulmonary: Will feel short of breath with atrial fibrillation episodes Gastrointestinal: No significant upper or lower GI symptoms. She does get occasional heartburn Dermatologic: No itching hair loss rash fingernail changes. Has some photosensitivity most noticeable on the arms Vascular: No vasomotor changes in the distal upper or lower extremities in response to cold weather. No history of blood clots or easy bruising. Musculoskeletal: Occasional myalgias and arthralgias. No small joint swelling. No dactylitis. Physical Examination: BP 132/70 Temp 35.9 ??C (96.6 ??F) Wt 81.2 kg (179 lb) BMI 26.36 kg/m?? Telephone encounter Alert. Oriented. No distress. Healthy-appearing. Anicteric sclera. Conjunctiva clear. Wearing facial covering. Heart: Regular rate and rhythm Lungs: Clear to auscultation Musculoskeletal: No synovitis or effusions Vascular: No ischemic findings; strong distal radial pulses Labs: 12/11/2018: CBC with WBC 6.5 hemoglobin [...] negative. Anti-SSA antibody negative. Anti-Sexton antibody negative. Anti-CONCRETE MIXER OPERATOR HELPER antibody negative. Qvgq-wsyrqb-wjikdmwp DNA antibody slightly positive at 38.3. Diagnostic imaging: Labs: Lab Requisition on 01/12/2020 Component Date Value ??? Final Diagnosis 01/12/2020 Value:This result contains rich text formatting which cannot be displayed here. ??? Diagnosis Comment 01/12/2020 Value:This result contains rich text formatting which cannot be displayed here. ??? Attestation 01/12/2020 Value:This result contains rich text formatting which cannot be displayed here. ??? Clinical History 01/12/2020 Value:This result contains rich text formatting which cannot be displayed here. ??? Gross Description 01/12/2020 Value:This result contains rich text formatting which cannot be displayed here. ??? Performing Lab 01/12/2020 Value:This result contains rich text formatting which cannot be displayed here. Orders Only on 11/25/2019 Component Date Value ??? Cholesterol, External 11/19/2019 167 ??? Triglycerides, External 11/19/2019 95 ??? HDL, External 11/19/2019 40 ??? LDL, External 11/19/2019 108 ??? Hemoglobin A1C, External 11/19/2019 5.9 Lab Requisition on 11/23/2019 Component Date Value ??? Final Diagnosis 11/23/2019 Value:This result contains rich text formatting which cannot be displayed here. ??? Diagnosis Comment 11/23/2019 Value:This result contains rich text formatting which cannot be displayed here. ??? Attestation 11/23/2019 Value:This result contains rich text formatting which cannot be displayed here. ??? Microscopic Description 11/23/2019 Value:This result contains rich text formatting which cannot be displayed here. ??? Clinical History 11/23/2019 Value:This result contains rich text formatting which cannot be displayed here. ??? Gross Description 11/23/2019 Value:This result contains rich text formatting which cannot be displayed here. ??? Performing Lab 11/23/2019 Value:This result contains rich text formatting which cannot be displayed here. Diagnosis / Assessment: 1. Undifferentiated connective tissue disease (HCC-CMS): Still asymptomatic. Quiescent photosensitivity. ALAINA profiles as noted. Specific antibody anticentromere antibody positive. Borderline ahydxfnezigy-skkmxo-hingpett DNA. Transthoracic echocardiogram with pulmonary pressures in the moderately elevated range 40 to 45 mmHg. Repeat testing showed peak pulmonary artery pressure 36 mmHg. We again had discussion today regarding possible implications of her serologic profile and cardiovascular testing. I have a low threshold to initiate therapy with hydroxychloroquine. Discussed potential risks and benefits of hydroxychloroquine. We will continue to monitor at this time. I have asked her to contact me with any new signs or symptoms including alopecia, malar rash, mouth sores, increasing sicca symptoms, small joint swelling and increased stiffness, respirophasic pain, fevers. I will be scheduling her for a high-resolution CT scan. Recommendations/Evaluation: This visit was conducted by telephone. I spent a total of 25 minutes in discussion with the patientas described in the progress note. Luke Sandhu MD documented in this encounter Plan of Treatment Upcoming Encounters Date Type Department Care Team (Late st Contact Info) Description 05/20/2024 14:45 EST Office Visit [facility] Adult Primary Care - [address] [phone] Jasmyne Poe MD [address] [place] [phone] documented as of this encounter Visit Diagnoses Diagnosis Undifferentiated connective tissue disease (HCC-CMS)- Primary Unspecified diffuse connective tissue disease documented in this encounter Discontinued Medications Medication Sig Discontinue Reason Start Date End Da te sertraline (ZOLOFT) 25 mg tablet Take 25 mg by mouth daily. Therapy completed 09/20/2019 02/08/2020 documented as of this encounter Care Teams Adult Daycare Coordinator Relationship Specialty Start Date End Date Jasmyne Poe MD [address] [place] [phone] PCP - General 01/07/13 documented as of this encounter
--- OUTSIDE RECORDS SUMMARY | 2023-12-03 02:07 | XMS_ITS | Encounter Summary ---
Author Organization [facility] Address [address] [place] [address] Care Team Providers Care Milk Condenser Name Role Phone Jasmyne Poe MD Primary Care Provider + Reason for Visit * Reason Onset Date Comments Pre-visit Planning 07/21/2020 Encounter Details Date Type Department Care Team (Late st Contact Info) Description 07/21/2020 Telephone [facility] Cardiology - [address] [place] [address] Riley Wolf MD [address] [facility] [address] [place] [address] Pre-visit Planning Social History Tobacco Use Types Packs/Day Years [...] encounter Miscellaneous Notes * Telephone Encounter - Jaun Padilla - 07/21/2020 1146 EDT Spoke with Kirsten, we confirmed appt for ablation procedure with Dr. Wolf on 10/03, 630am check-in @ [facility] main reg. Patient understands and confirmed that they cannot leave or have left the state of [place] within two weeks of their procedure date, due to [id number] restrictions. documented in this encounter Plan of Treatment Upcoming Encounters Date Type Department Care Team (Late st Contact Info) Description 05/20/2024 14:45 EST Office Visit [facility] Adult Primary Care - [address] [phone] Jasmyne Poe MD [address] [place] [phone] documented as of this encounter Visit Diagnoses Not on filedocumented in this encounter Care Teams Milk Condenser Relationship Specialty Start Date End Date Jasmyne Poe MD [address] [place] [phone] PCP - General 01/07/13 documented as of this encounter
--- OUTSIDE RECORDS SUMMARY | 2023-12-03 02:07 | XMS_ITS | Encounter Summary ---
Author Organization [facility] Address [address] [place] [address] Care Team Providers Care Avionics Repair Technician Name Role Phone Jasmyne Poe MD Primary Care Provider + Reason for Referral * Radiology Services (Routine) - Closed Specialty Diagnoses / Procedures Referred By Contac t Referred To Contact Diagnoses Paroxysmal atrial fibrillation (HCC-CMS) Procedures CT CARDIAC ANGIO PULMONARY VEIN CT ANGIO CHEST Latoya Santana MD [address] [place] [address] Referral ID Status Reason Start Date Expiration Date Visits Re quested Visits Authorized [id number] Closed 07/17/2020 1 1 Reason for Visit * Reason Comments Atrial Fibrillation Encounter Details Date Type Department Care Team (Late st Contact Info) Description 07/17/2020 8:40 EDT Office Visit [facility] Cardiology [place] [place] [address] Riley Wolf MD [address] [facility] [address] [place] [address] Paroxysmal atrial fibrillation (HCC-CMS) (Primary Dx) Social [...] Sign Reading Time Taken Comments Blood Pressure 142/78 07/17/2020 0836 EDT Pulse 57 07/17/2020 0836 EDT Temperature - - Respiratory Rate - - Oxygen Saturation 100% 07/17/2020 0836 EDT Inhaled Oxygen Concentration - - Weight 80.2 kg (176 lb 12.8 oz) 07/17/2020 0836 EDT Height - - Body Mass Index 26.34 05/31/2020 1325 EST documented in this encounter [...] as of this encounter Progress Notes * Latoya Santana MD - 07/17/2020 0840 EDT Cardiology Electrophysiology Office Visit Date of service: 07/17/20 Reason for visit: pAF HPI: Kirsten Almaguer is a 55 y.o. female who presents for follow up for pAF ([id number] 1 for female, no longer has HTN). Her NIDA was with Dr. Coleman and Dr. Wolf in 03/2018. At that time she was having infrequent episodes and it was decided to remain on diltiazem and not pursue rhythm control therapies. 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 In 2017 she began to have AF episodes lasting between 1 and 6 hours documented on an ECG when she presented to the ED at [facility] and during a Holter monitor with maximum [id number]. Since September she has been having an episode about once per week. Now lasting for about 12-18 hours. HR in the 130-150s. Takes diltiazem 60mg IR and brought HRs down to the 90s. When in AF she feels a pressure sensation in her chest and feels SOB or sometimes feels racing HR. No chest pressurewith exertion. She is active. She lost 30-lb with Nutrisystem. 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 She had to stop taking daily diltiazem because her HRs were in the 40-50s, sometimes 30s at night. Now takes diltiazem IR prn for AF episodes. Currently on dilitazem and ASA 81mg (for AF stroke ppx not secondary prevention of ASCVD). After losing weight, BP runs in the 120s/80s at home not on any blood pressure lowering medications. ROS: A 10-point review of systems was conducted. Pertinent positives are noted in HPI. All other systems were reviewed and are negative. Past Cardiac History: Past Medical History: Diagnosis Date ??? Anxiety 2003 on zoloft in the past ??? Gestational diabetes 2001 diet and exercise only ??? Hypertension with episdes of anxiety in the past ??? Obesity ??? Palpitations ??? Rotator cuff injury 01/19/2014 Right shoulder Current Outpatient Medications Medication ??? aspirin chewable [...] current facility-administered medications for this visit. Allergies as of 07/17/2020 - Reviewed 07/17/2020 Allergen Reaction Noted ??? Penicillins Anaphylaxis ??? Sulfa (sulfonamide antibiotics) Rash Social History Socioeconomic History ??? Marital status: Spouse name: Not on file ??? Number of children: Not on file ??? Years of education: Not on file ??? Highest education level: Not on file Occupational History ??? Not on file Social Needs ??? Financial resource strain: Not on file ??? Food insecurity Worry: Never true Inability: Never true ??? Transportation needs Medical: Not on file Non-medical: Not on file Tobacco Use ??? Smoking status: Never Smoker ??? Smokeless tobacco: Never Used Substance and Sexual Activity ??? Alcohol use: Not Currently Frequency: Monthly or less Drinks per session: 1 or 2 ??? Drug use: No ??? Sexual activity: Not on file Lifestyle ??? Physical activity Days per week: Not on file Minutes per session: Not on file ??? Stress: Not on file Relationships ??? Social connections Talks on phone: Not on file Gets together: Not on file Attends sikhism service: Not on file Active member of club or organization: Not on file Attends meetings of clubs or organizations: Not on file Relationship status: Not on file ??? Intimate partner violence Fear of current or ex partner: Not on file Emotionally abused: Not on file Physically abused: Not on file Forced sexual activity: Not on file Other Topics Concern ??? Lives with Parent(s) Not Asked ??? Foster Care Not Asked ??? Other Caregivers Involved Not Asked ??? Active DCF/CPS Involvement Not Asked ??? History of DCF/CPS Involvement Not Asked ??? Feels Safe in Home/School/Neighborhood Yes ??? Enrolled in School Not Asked ??? Doing well in school Not Asked ??? IEP/504 Plan Not Asked ??? Literacy Concerns No ??? Service Not Asked ??? Legal Status/Immigration Concerns Not Asked ??? Adequate Household Income Not Asked ??? Adequate Electric/Heat/Telephone Not Asked ??? Home Environment Safe Not Asked ??? Environmental Exposure Not Asked ??? Occupational Exposure Not Asked ??? Seat Belt Not Asked ??? Bike Helmet Not Asked ??? Access to Firearms Not Asked ??? Notified to Remove Firearms Not Asked ??? Hobby Hazards Not Asked ??? Exercise Not Asked ??? Weight Concern Not Asked ??? Sleep Concern Not Asked ??? Stress Concern Not Asked ??? Caffeine Concern Not Asked ??? Back Care Not Asked ??? Self-Exams Not Asked ??? Blood Transfusions Not Asked ??? Special Diet Not Asked Social History Narrative , three children. Her youngest is a survivor of AML which was diagnosed at age 5. 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 Heart Attack Other 60 grandfather- [place] ??? Leukemia Son AML Physical Exam Blood pressure (!) 142/78, pulse 57, weight 80.2 kg (176 lb 12.8 oz), SpO2 100 %. General: Middle aged female patient in NAD HEENT: NCAT, No scleral icterus Neck: Supple, No JVD CVS: S1, S2, RRR, no m/r/g Chest: Chest CTA b/l with good air movement Abdomen: Soft, NT, ND, BS+ Extremities: No LE edema, PPP 2+ Neuro: AAO x3, no focal deficits appreciated Skin: No rashes or lesions Labs CBC: No results for input(s): WBC, HGB, HCT, MCV, PLT in the last 72 hours. BMP: No results for input(s): CREATININE, BUN, NA, K, CL, CO2, CALCIUM, PHOS, MG in the last 72 hours. Coags: No results for input(s): PROTIME, INR, PTT in the last 72 hours. LFTs: No results for input(s): ALT, AST, GGT, ALKPHOS in the last 72 hours. Incorrect component name entered: TBILI FSBS: No results for input(s): GLUCOSEFINGE in the last 72 hours. Cardiac Biomarkers: No results for input(s): CK, MB, CKMBINDEX, TROPONINI in the last 72 hours. Hemoglobin A1C: Lab Results Component Value Date HGBA1C 5.7 05/21/2017 Holter monitor showed normal QTc A/P: Kirsten Almaguer is a 55 y.o. female patient with HTN who presents for follow up for pAF ([id number] 1 for female). Her NIDA was with Dr. Coleman and Dr. Wolf in 03/2018. At that time she washaving infrequent episodes and it was decided to remain on diltiazem and not pursue rhythm control therapies. 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 We discussed lifestyle/risk factor optimization including weight loss, physical activity, and evaluation for sleep apnea. We discussed rhythm control options for AF including AAD and AF ablation. Given SND, limited with medication options as we would typically use diltiazem to slow rate in additionto dofetilide to increase probabiltiy to stay in NSR. She is in favor of AF ablation. We discussed the risks and benefits of ablation and what to expect in terms of the procedure, overnight admission, and recovery period. We will need to start OAC after ablation for at least 3 months. # Paroxysmal atrial fibrillation ([facility]) - CT ANGIO CHEST; Future - CASE REQUEST EP LAB for AF ablation - stop ASA 81mg for stroke PPx, this is no longer recommended - will plan to start apixaban after the procedure and continue for 3 months after the procedure Thank you for involving us in the care of this patient. Please call us with questions. Patient seen and examined with Dr. Maryann Santana MD Electrophysiology Fellow Pager #[phone] * Riley Wolf MD - 07/17/2020 0860 EDT I have seen and examined the patient and agree with the above history and physical exam and assessment and plan. Riley Wolf MD documented in this encounter Plan of Treatment Upcoming Encounters Date Type Department Care Team (Late st Contact Info) Description 05/20/2024 14:45 EST Office Visit [facility] Adult Primary Care - [place] [address] [place] [address] Jasmyne Poe MD [address] [place] [phone] documented as of this encounter Results * CT CARDIAC ANGIO [...] (HCC-CMS) Atrial fibrillation documented in this encounter Orders Case Request Count Last Ordered Date First Orde red Date CASE REQUEST EP LAB 1 07/17/2020 documented in this encounter Care Teams Avionics Repair Technician Relationship Specialty Start Date End Date Jasmyne Poe MD [address] [place] [phone] PCP - General 01/07/13 documented as of this encounter
--- OUTSIDE RECORDS SUMMARY | 2023-12-03 02:07 | XMS_ITS | Encounter Summary ---
Author Organization [facility] Address [address] [place] [address] Care Team Providers Care End User Support Specialist Name Role Phone Jasmyne Poe MD Primary Care Provider + Reason for Referral * Cardiology (Routine) - Closed Specialty Diagnoses / Procedures Referred By Contac t Referred To Contact Diagnoses Paroxysmal atrial fibrillation (HCC-CMS) Procedures TRANSESOPHAGEAL ECHO (MAG) Riley Wolf MD [address] [place] [phone] Referral ID Status Reason Start Date Expiration Date Visits Re quested Visits Authorized [id number] Closed 09/22/2020 1 1 Reason for Visit * Auth/Cert Specialty Diagnoses / Procedures Referred By Contac t Referred To Contact Diagnoses Paroxysmal atrial fibrillation (HCC-CMS) Paroxysmal atrial fibrillation (HCC-CMS) [I48.0] Procedures ID EPHYS EVL TRNSPTL TX ATRIAL FIB ISOLAT PULM VEIN ID ECHO TRANSESOPHAG IMAGE ACQUISJ INTERP&REPORT Riley Wolf MD [address] [place] [phone] Riley Wolf MD 111 [facility] 1 [place] [address] Referral ID Status Reason Start Date Expiration Date Visits Re quested Visits Authorized [id number] 07/17/2020 1 1 Encounter Details Date Type Department Care Team (Late st Contact Info) Description 10/03/2020 6:37 EDT - 10/03/2020 23:59 EDT Hospital Encounter [facility] [place] [address] Riley Wolf MD [address] [phone] Paroxysmal atrial fibrillation ([facility]) Discharge Disposition: Home or Self Care Social [...] Office Visit [facility] Adult Primary Care [address] [address] Jasmyne Poe MD [address] [place] [phone] Scheduled Orders Name Type Priority Associated Diagnoses Order Schedule TRANSESOPHAGEAL ECHO (MAG) Echocardiography Routine Paroxysmal atrial fibrillation (HCC-CMS) 1 Occurrences starting 10/03/2020 until 10/03/2020 documented as of this encounter Visit Diagnoses Diagnosis Paroxysmal atrial fibrillation (HCC-CMS) Atrial fibrillation documented in this encounter Care Teams End User Support Specialist Relationship Specialty Start Date End Date Jasmyne Poe MD [address] [place] [phone] PCP - General 01/07/13 documented as of this encounter
--- OUTSIDE RECORDS SUMMARY | 2023-12-03 02:07 | XMS_ITS | Encounter Summary ---
Author Organization [facility] Address [address] [place] [address] Care Team Providers Care Student Activities Director Name Role Phone Jasmyne Poe MD Primary Care Provider + Reason for Visit * Reason Onset Date Comments Coordination Of Care 07/26/2020 Encounter Details Date Type Department Care Team (Late st Contact Info) Description 07/26/2020 Telephone [facility] Hematology & Oncology - [facility] [address] [place], [place] [id number] Riley Wolf MD 111 [facility] 1 [place] [address] Coordination Of Care Social History Tobacco Use Types Packs/Day [...] Telephone Encounter - Florencia Granados RN - 07/26/2020 1618 EDT See 3-30 pt msg- pt notified. * Telephone Encounter - Ayush Conley - 07/26/2020 1434 EDT Caller informing clinic that facility is not able to perform CT Card Angio and are not able to schedule patient. Please call to discuss if needed. documented in this encounter Plan of Treatment Upcoming Encounters Date Type Department Care Team (Late st Contact Info) Description 05/20/2024 14:45 EST Office Visit [facility] Adult Primary Care - [address] [address] Jasmyne Poe MD [address] [place] [phone] documented as of this encounter Visit Diagnoses Not on filedocumented in this encounter Care Teams Student Activities Director Relationship Specialty Start Date End Date Jasmyne Poe MD [address] [place] [phone] PCP - General 01/07/13 documented as of this encounter
--- OUTSIDE RECORDS SUMMARY | 2023-12-03 02:07 | XMS_ITS | Encounter Summary ---
Author Organization [facility] Address [address] [place] [address] Care Team Providers Care Health Center Manager Name Role Phone Jasmyne Poe MD Primary Care Provider + Reason for Visit * Reason Onset Date Comments Results 06/01/2020 Encounter Details Date Type Department Care Team (Late st Contact Info) Description 06/01/2020 Orders Only [facility] Adult Primary Care - [address] [address] Jasmyne Poe MD [address] [place] [phone] Social History Tobacco Use Types Packs/Day [...] Info) Description 05/20/2024 14:45 EST Office Visit [facility] Adult Primary Care [address] [phone] Jasmyne Poe MD [address] [place] [phone] documented as of this encounter Visit Diagnoses Not on filedocumented in this encounter Care Teams Health Center Manager Relationship Specialty Start Date End Date Jasmyne Poe MD [address] [place] [phone] PCP - General 01/07/13 documented as of this encounter
--- OUTSIDE RECORDS SUMMARY | 2023-12-03 02:07 | XMS_ITS | Encounter Summary ---
Author Organization [facility] Address [address] [place] [address] Care Team Providers Care Die Cutter Name Role Phone Jasmyne Poe MD Primary Care Provider + Reason for Visit * Reason Onset Date Comments Other 02/15/2020 Encounter Details Date Type Department Care Team (Late st Contact Info) Description 02/15/2020 Telephone [facility] [place] [address] [place], [place] [phone] Luke Sandhu MD [facility] Rheumatology [address] [place] [address] [place] [phone] Other Social History Tobacco Use Types Packs/Day [...] encounter Miscellaneous Notes * Telephone Encounter - Kylie Portillo RN - 02/15/2020 1616 EDT Forwarding you this question from Kirsten. * Telephone Encounter - Genesis Hodges - 02/15/2020 1509 EDT Kirsten [facility] -following up to see if Dr. Sandhu spoke with colleague re High Resolution CT Scan, should it be done at [facility] or [facility]. Please ;et her know - she is at work # until 3:30 [phone] or cell [phone] documented in this encounter Plan of Treatment Upcoming Encounters Date Type Department Care Team (Late st Contact Info) Description 05/20/2024 14:45 EST Office Visit [facility] Adult Primary Care - [address] [address] Jasmyne Poe MD [address] [place] [phone] documented as of this encounter Visit Diagnoses Not on filedocumented in this encounter Care Teams Die Cutter Relationship Specialty Start Date End Date Jasmyne Poe MD [address] [place] [phone] PCP - General 01/07/13 documented as of this encounter
--- OUTSIDE RECORDS SUMMARY | 2023-12-03 02:07 | XMS_ITS | Encounter Summary ---
Author Organization [facility] Address [address] [place] [address] Care Team Providers Care Event Av Operator Name Role Phone Jasmyne Poe MD Primary Care Provider + Encounter Details Date Type Department Care Team (Late st Contact Info) Description 01/13/2020 Lab Requisition [facility] Pathology & Laboratory Medicine - [address] [address] Adriano Cam PA [address] [place] [address], [address] [place] [address] Neoplasm of uncertain behavior of skin Social [...] Info) Description 05/20/2024 14:45 EST Office Visit [facility] Adult Primary Care [address] [address] Jasmyne Poe MD [address] [place] [address] [phone] Scheduled Orders Name Type Priority Associated Diagnoses Orde r Schedule SURGICAL PATHOLOGY Pathology Routine Neoplasm of uncertain behavior of skin Ordered: 01/13/2020 documented as of this encounter Visit Diagnoses Diagnosis Neoplasm of uncertain behavior of skin documented in this encounter Additional Health Concerns Infection Onset Date Last Indicated Resolved Time R/O COVID-19 10/16/2020 10/16/2020 10/16/2020 5:30 EDT documented as of this encounter Care Teams Event Av Operator Relationship Specialty Start Date End Date Jasmyne Poe MD [address] [place] [phone] PCP - General 01/07/13 documented as of this encounter
--- OUTSIDE RECORDS SUMMARY | 2023-12-03 02:07 | XMS_ITS | Encounter Summary ---
Author Organization [facility] Address [address] [place] [address] Care Team Providers Care Marketing And Promotions Manager Name Role Phone Jasmyne Poe MD Primary Care Provider + Reason for Visit * Reason Onset Date Comments Other 02/15/2020 Encounter Details Date Type Department Care Team (Late st Contact Info) Description 02/15/2020 Telephone [facility] [place] [address] [place], [place] [phone] Hunter Portillo RN Other Social History Tobacco Use Types Packs/Day [...] as of this encounter Miscellaneous Notes * Addendum Note - Hunter Portillo RN - 03/13/2020 0835 ESTAddended by: HUNTER PORTILLO on: 03/13/2020 08:35 Modules accepted: Orders * Telephone Encounter - Hunter Portillo RN - 03/13/2020 0834 EST Order placed for CT of chest per Dr. Sandhu. Patient will follow up with Dr. Sandhu at [facility] and this was noted on the order. * Telephone Encounter - Hunter Portillo RN - 02/15/[address] Sandhu's reply to patient via the portal. documented in this encounter Plan of Treatment Upcoming Encounters Date Type Department Care Team (Late st Contact Info) Description 05/20/2024 14:45 EST Office Visit [facility] Adult Primary Care - [address] [phone] Jasmyne Poe MD [address] [place] [phone] documented as of this encounter Visit Diagnoses Diagnosis MCTD (mixed connective tissue disease) ([facility])- Primary Other specified diffuse disease of connective tissue documented in this encounter Care Teams Marketing And Promotions Manager Relationship Specialty Start Date End Date Jasmyne Poe MD [address] [place] [phone] PCP - General 01/07/13 documented as of this encounter
--- OUTSIDE RECORDS SUMMARY | 2023-12-03 02:07 | XMS_ITS | Encounter Summary ---
Author Organization [facility] Address [address] [place] [address] Care Team Providers Care Oil Winterizer Name Role Phone Jasmyne Poe MD Primary Care Provider + Reason for Referral * Laboratory Services (Routine) - New Request Specialty Diagnoses / Procedures [facility] To Contact Diagnoses History of vitamin D deficiency Procedures VITAMIN D (25,OH) Jasmyne Poe MD [address] [place] [phone] Referral ID Status Reason Start Date Expiration Date V isits Requested Visits Authorized [id number] New Request 05/23/2020 1 1 Reason for Visit * Reason Onset Date Comments Pre-visit Orders 05/23/2020 Encounter Details Date Type Department Care Team (Late st Contact Info) Description 05/23/2020 Orders Only [facility] Adult Primary Care - [address] [address] Jasmyne Poe MD [address] [place] [phone] History of vitamin D deficiency (Primary Dx) Social History Tobacco Use Types [...] encounter Progress Notes * Marj Solis - 05/23/2020 1109 EST Patient requested Vit D via [employer] and said it is normally checked annually due to a deficiency which she takes Vitamin D daily for. The only result I could find in her chart was from 2018 and it was sufficient at 59. I did code it with h/o Vit D deficiency. Please review/change if needed and signand I will fax it for her. Marj Solis 05/23/2020 11:16 documented in this encounter Plan of Treatment Upcoming Encounters Date Type Department Care Team (Late st Contact Info) Description 05/20/2024 14:45 EST Office Visit [facility] Adult Primary Care - [address] [phone] Jasmyne Poe MD [address] [place] [phone] documented as of this encounter Results * VITAMIN D (25,OH) (05/23/2020 14:37 EST) 25OH Vitamin D Tot, External 54.9 [facility] Blood VENOUS BLOOD / Unknown 05/23/2020 14:37 EST Jasmyne Poe MD CHEMISTRY & BLOO D GAS ORDERABLES [facility] documented in this encounter Visit Diagnoses Diagnosis History of vitamin D deficiency- Primary Personal history of nutritional deficiency documented in this encounter Care Teams Oil Winterizer Relationship Specialty Start Date End Date Jasmyne Poe MD [address] [place] [phone] PCP - General 01/07/13 documented as of this encounter
--- OUTSIDE RECORDS SUMMARY | 2023-12-03 02:07 | XMS_ITS | Encounter Summary ---
Author Organization [facility] Address [address] [place] [address] Care Team Providers Care Process Eng Name Role Phone Jasmyne Poe MD Primary Care Provider + Reason for Visit * Reason Onset Date Comments Hospital Discharge Follow Up 10/06/2020 Encounter Details Date Type Department Care Team (Late st Contact Info) Description 10/06/2020 Telephone [facility] Adult Primary Care - [place] [address] [place] [address] Sukhdeep Bradford RN Hospital Discharge Follow Up Social History Tobacco Use Types [...] Telephone Encounter - Sukhdeep Bradford RN - 10/06/2020 1310 EDT Hospital Discharge Follow Up: Reason for admission: Final Hospital Diagnosis: Paroxysmal atrial fibrillation Symptoms improving? yes Discharge instructions available? yes Medications Reviewed/prescriptions filled? yes Support at home? yes Home health service/issues? no - not using Questions about discharge instructions? no - Follow-up visit scheduled? no - states, I am following up with Lis Jimenez APRN in cards on 10/18. Education/Plan: Advised that we have nurse's on the phones all day and provider's on all night if they require any assistance SUKHDEEP BRADFORD RN 10/06/2020 documented in this encounter Plan of Treatment Upcoming Encounters Date Type Department Care Team (Late st Contact Info) Description 05/20/2024 14:45 EST Office Visit [facility] Adult Primary Care - [place] [address] [place] [address] Jasmyne Poe MD [address] [place] [phone] documented as of this encounter Visit Diagnoses Not on filedocumented in this encounter Care Teams Process Eng Relationship Specialty Start Date End Date Jasmyne Poe MD [address] [place] [phone] PCP - General 01/07/13 documented as of this encounter
--- OUTSIDE RECORDS SUMMARY | 2023-12-03 02:07 | XMS_ITS | Encounter Summary ---
Author Organization [facility] Address [address] [place] [address] Care Team Providers Care Grinding Machine Operator Name Role Phone Jasmyne Poe MD Primary Care Provider + Encounter Details Date Type Department Care Team (Latest Contact Info) Description 02/08/2020 Travel Social History Tobacco Use Types Packs/Day [...] Info) Description 05/20/2024 14:45 EST Office Visit [facility] Adult Primary Care [address] [phone] Jasmyne Poe MD [address] [place] [phone] documented as of this encounter Visit Diagnoses Not on filedocumented in this encounter Care Teams Grinding Machine Operator Relationship Specialty Start Date End Date Jasmyne Poe MD [address] [place] [phone] PCP - General 01/07/13 documented as of this encounter
--- OUTSIDE RECORDS SUMMARY | 2023-12-03 02:07 | XMS_ITS | Encounter Summary ---
Author Organization [facility] Address [address] [place] [address] Care Team Providers Care Bench Lathe Operator Name Role Phone Jasmyne Poe MD Primary Care Provider + Reason for Visit * Reason Onset Date Comments Medications Refill 05/01/2020 Encounter Details Date Type Department Care Team (Late st Contact Info) Description 05/01/2020 Refill [facility] Adult Primary Care - [place] [address] [place] [address] Jasmyne Poe MD [address] [place] [phone] Medications Refill Social History Tobacco Use [...] Refills Start Date End Da te dilTIAZem (CARDIZEM CD) 240 mg ER capsule Take 1 Cap by mouth daily. 90 Cap 1 05/02/2020 05/30/2020 levothyroxine (SYNTHROID) 50 mcg tablet Take 1 Tab by mouth daily. 90 Tab 05/02/2020 08/15/2020 documented in this encounter Miscellaneous Notes * Telephone Encounter - Cassie Bradford RN - 05/02/2020 2433 ESTFrom: Kirsten Almaguer To: Office of Jasmyne Poe MD Sent: 05/01/2020 11:39 EST Subject: Medication Renewal Request Refills have been requested for the following medications: levothyroxine (SYNTHROID) 50 mcg tablet [Jasmyne Poe MD] DILTiazem (CARDIZEM CD) 240 mg ER capsule [Jasmyne Poe MD] Preferred pharmacy: [facility] [place] [place] - [address] documented in this encounter Plan of Treatment Upcoming Encounters Date Type Department Care Team (Late st Contact Info) Description 05/20/2024 14:45 EST Office Visit [facility] Adult Primary Care - [place] [address] [place] [address] Jasmyne Poe MD [address] [place] [phone] documented as of this encounter Visit Diagnoses Not on filedocumented in this encounter Discontinued Medications Medication Sig Discontinue Reason Start Date End Da te levothyroxine (SYNTHROID) 50 mcg tablet Take 1 Tab by mouth daily. Reorder 09/17/2019 05/01/2020 DILTiazem (CARDIZEM CD) 240 mg ER capsule Take 1 Cap by mouth daily. Reorder 12/07/2019 05/01/2020 documented as of this encounter Care Teams Bench Lathe Operator Relationship Specialty Start Date End Date Jasmyne Poe MD [address] [place] [phone] PCP - General 01/07/13 documented as of this encounter
--- OUTSIDE RECORDS SUMMARY | 2023-12-03 02:08 | XMS_ITS | Encounter Summary ---
Author Organization [facility] Address [address] [place] [address] Care Team Providers Care Desktop Support Engineer Name Role Phone Jasmyne Poe MD Primary Care Provider + Reason for Visit * Reason Comments Follow-up Right foot Encounter Details Date Type Department Care Team (Late st Contact Info) Description 11/04/2018 15:45 EDT Office Visit [facility] Adult Primary Care - [address] [address] Jasmyne Poe MD [address] [place] [phone] Recurrent cellulitis of lower leg (Primary Dx) Social History Tobacco Use Types Packs/Day Years Used Date Smoking Tobacco: Never Smokeless Tobacco: Never Tobacco Cessation:Counseling Given: No Alcohol Use Standard Drinks/Week Comments No 0 (1 standard drink = 0.6 oz pur e alcohol) Sex and Gender Information Value Date Recorded Sex Assigned at Not on file Gender Identity Female 06/02/2019 15:13 EST Sexual Orientation Not on file documented as of this encounter Last Filed Vital Signs Vital Sign Reading Time Taken Comments Blood Pressure 140/63 11/04/2018 1600 EDT Pulse 63 11/04/2018 1600 EDT Temperature 36.3 ??C (97.3 ??F) 11/04/2018 1600 EDT Respiratory Rate 12 11/04/2018 1600 EDT Oxygen Saturation - - Inhaled Oxygen Concentration - - Weight 95.3 kg (210 lb) 11/04/2018 1600 EDT Height - - Body Mass Index 31.01 05/25/2018 1055 EST documented in this encounter Functional Status [...] Dispensed Refills Start Date End Da te doxycycline (VIBRA-TABS) 100 mg tablet Take 1 Tab by mouth 2 times daily. 20 Tab 11/04/2018 12/10/2018 documented in this encounter Progress Notes * Jasmyne Poe MD - 11/04/2018 1545 EDT Images from the original note were not included. Patient ID: Kirsten Almaguer is 53 y.o. y.o female Patient Active Problem List Diagnosis ??? Osteoarthritis ??? Allergy to penicillin ??? Anxiety ??? Acquired hypothyroidism ??? PAF (paroxysmal atrial fibrillation) ([facility]) ??? Obesity, Class I, BMI 30-34.9 Chief Complaint: Follow-up (Right foot ) Subjective: Kirsten is here for evaluation of recurrent cellulitis of the posterior left heel. Around 09/22/2018, she hit that heel against a door leaving a small abrasion. She developed redness and swelling a few days later. 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 The redness and swelling cleared up right way. 10/06/18 : a few days after she completed the course of cephalexin the redness, pain, and swelling returned so she came here and was treated with a 7 day course of clindamycin. Again the rash cleared up right away and then returned. Around 10/17 she was then started on a ten day course of clindamycin which she competed last week. The heel is now tender again and slightly swollen. She is pretty sure the rash will return. There have been no fevers, chills, nausea and no leg edema. Current Outpatient Medications: aspirin 325 mg tablet Take 325 mg by mouth daily. B Complex Vitamins (VITAMIN B COMPLEX) tablet Take 1 Each by mouth daily. cholecalciferol, Vitamin D3, 2,000 unit tablet Take by mouth. DILTiazem (CARDIZEM CD) 240 mg ER capsule Take 1 Cap by mouth daily. doxycycline (VIBRA-TABS) 100 mg tablet Take 1 Tab by mouth 2 times daily. ibuprofen (MOTRIN) 200 mg tablet Take 200 mg by mouth as needed. levothyroxine (SYNTHROID) 50 mcg tablet Take 1 Tab by mouth daily. Magnesium 250 mg tablet Take 1 Each by mouth daily. melatonin 3 mg tablet Take by mouth at bedtime. MULTIVIT &MINERALS/FERROUS FUM (MULTI VITAMIN ORAL) Take by mouth. polyethylene glycol (GOLYTELY;NULYTELY) 236-22.74-6.74 -5.86 gram suspension Instructions mailed once procedure scheduled. Questions: [facility] Gastroenterology: [phone] or GI Doctor's Office. (Patient not taking: Reported on 10/06/2018) sertraline (ZOLOFT) 25 mg tablet Take 1 Tab by mouth daily. (Patient not taking: Reported on 10/06/2018) Allergies Allergen Reactions ??? Penicillins Anaphylaxis Tolerates cephalexin ??? Sulfa (Sulfonamide Antibiotics) Rash System Negative Positive Comment Constitutional X Eyes ENT Pulmonary Cardiovascular Gastrointestinal Musculoskeletal Neurologic Hematologic Dermatologic X Other Objective: BP 140/63 Pulse 63 Temp 36.3 ??C (97.3 ??F) (Tympanic) Resp 12 Wt 95.3 kg (210 lb) BMI 31.01 kg/m?? Left heel: slight erythema as compared to the opposite heel. There is slight bogginess to palpationat the achilles tendon insertion site on the calcaneus. Besides the superficial peeling, no obviousskin breakdown. LABS: Results for orders placed or performed in visit on 05/28/18 LIPID PROFILE (INCLUDES CHOLESTEROL, TRIGLYCERIDES, HDL, LDL) Result Value Ref Range Cholesterol, External 204 Triglycerides, External 93 HDL, External 43 LDL, External 136 Chol/HDL Ratio, External Fasting?, External Assessment: 53 year old woman with now three episodes of recurrent cellulitis of the left posterior heel after minor trauma. The cellulitis responds right away to antibiotics but then returns, each time taking a little longer to do so. She is concerned about osteomyelitis which is unlikely but I wonder if the deeper soft tissue is involved. She would also like to avoid daily suppressive antibiotics. Plan: Start doxycycline twice daily for ten days. She has concerns about using repeated courses of clindamycin and she should get MRSA coverage with the doxycycline. She was warned about avoiding exposure. MRI of the heel to rule out deeper infection. Today's face to face visit time was 20 minutes and 10 minutes of that time was spent in counseling and/or coordination of care for the problems listed above. * Andre Alexander - 11/04/2018 1545 EDT Subjective: Patient ID: Kirsten Almaguer is an 53 y.o. female. Chief Complaint Patient presents with ??? Follow-up Right foot HPI Several weeks ago Kirsten injured her right heel on a sliding door. Since then she has had repeated bouts of redness, pain and swelling. There is some pain radiating up her achilles tendon sometimes. Her first episode was treated with cephalexin for 7 days and her second and third bouts were treated with clindamycin for 7 and then 10 days. Each time her symptoms resolved within a couple of daysof beginning the dose and then relapsed after finishing her antibiotic course at different increasing intervals (2 days, then 4 days and then a week). She is now beginning to have symptoms again. Shehas not had any constitutional symptoms such as N/V, fever, chills. She has no lymphedema of the leg, venous insufficiency, immunosuppression or sx of tinea pedis. Patient Active Problem List Diagnosis ??? Osteoarthritis ??? Allergy to penicillin ??? Anxiety ??? Acquired hypothyroidism ??? PAF (paroxysmal atrial fibrillation) ([facility]) ??? Obesity, Class I, BMI 30-34.9 Past Medical History: Diagnosis Date ??? Anxiety 2003 on zoloft in the past ??? Gestational diabetes 2001 diet and exercise only ??? Hypertension with episdes of anxiety in the past ??? Obesity ??? Osteoarthritis ??? Palpitations ??? Rotator cuff injury 01/19/2014 Right shoulder Current Outpatient Medications on File Prior to Visit Medication Sig Dispense Refill ??? aspirin 325 mg tablet Take 325 mg by mouth daily. ??? B Complex Vitamins (VITAMIN B COMPLEX) tablet Take 1 Each by mouth daily. ??? cholecalciferol, Vitamin D3, 2,000 unit tablet Take by mouth. ??? DILTiazem (CARDIZEM CD) 240 mg ER capsule Take 1 Cap by mouth daily. 90 Cap 3 ??? ibuprofen (MOTRIN) 200 mg tablet Take 200 mg by mouth as needed. ??? levothyroxine (SYNTHROID) 50 mcg tablet Take 1 Tab by mouth daily. 90 Tab 0 ??? Magnesium 250 mg tablet Take 1 Each by mouth daily. ??? melatonin 3 mg tablet Take by mouth at bedtime. ? ? MULTIVIT &MINERALS/FERROUS FUM (MULTI VITAMIN ORAL) Take by mouth. ??? polyethylene glycol (GOLYTELY;NULYTELY) 236-22.74-6.74 -5.86 gram suspension Instructions mailed once procedure scheduled. Questions: [facility] Gastroenterology: [phone] or GI Doctor's Office. (Patient not taking: Reported on 10/06/2018) 4000 mL 0 ??? sertraline (ZOLOFT) 25 mg tablet Take 1 Tab by mouth daily. (Patient not taking: Reported on 10/06/2018) 90 Tab 3 No current facility-administered medications on file prior to visit. Allergies Allergen Reactions ??? Penicillins Anaphylaxis Tolerates cephalexin ??? Sulfa (Sulfonamide Antibiotics) Rash Social Social History Tobacco Use ??? Smoking status: Never Smoker ??? Smokeless tobacco: Never Used Substance Use Topics ??? Alcohol use: No ??? Drug use: No ROS - See HPI Objective: BP 140/63 Pulse 63 Temp 36.3 ??C (97.3 ??F) (Tympanic) Resp 12 Wt 95.3 kg (210 lb) BMI 31.01 kg/m?? Physical Exam The right heal is erythematous with peeling skin. It is tender to the touch. There are no interdigital fissures. Assessment: Kirsten is likely having recurrent cellulitis. Per UpToDate, it is not uncommon for cellulitis toreccur, sometimes multiple times. Cellulitis fits with a plausible source of infection (the original foot injury), and the redness, pain and minor swelling, as well as the rapid response to antibiotic treatment. Other possibilities include septic bursitis and osteomyelitis. Septic bursitis does notseem likely given the lack of a large fluid pocket on palpation. Osteomyelitis is possible and thismay warrant later MRI if symptoms fail to respond to continued antibiotic treatment. Plan: Cellulitis: -Per UpToDate, the approach to recurrent cellulitis is the same as the previous episodes of cellulitis, with the possible addition of suppressive therapy if cellulitis occurs more than 3 or 4 times per year in the presence of continuing predisposing factors. Though this will be her 4th episode, I feel that it is worthwhile to try at least one more round before discussing ongoing suppressive therapy given the increasing intervals between episodes and the potential harms of ongoing suppressive antibiotics, in addition to the lack of clear predisposing factors. She has been treated successfully with cephalexin and clindamycin before; however, given the possible increased risk of Clostridioides difficile colitis with clindamycin, Kirsten will begin a trial of doxycycline. -If sx recur, consider workup for other conditions, including osteomyelitis with an MRI and also discuss the pros and cons of ongoing suppressive therapy. -Additionally, when sx are present, elevate foot to ensure optimal lymphatic drainage of the area, which is thought to be helpful in cases of cellulitis in general. There are no diagnoses linked to this encounter. documented in this encounter Plan of Treatment Upcoming Encounters Date Type Department Care Team (Late st Contact Info) Description 05/20/2024 14:45 EST Office Visit [facility] Adult Primary Care - [address] [address] Jasmyne Poe MD [address] [place] [phone] documented as of this encounter Visit Diagnoses Diagnosis Recurrent cellulitis of lower leg- Primary Cellulitis and abscess of leg, except foot documented in this encounter Care Teams Desktop Support Engineer Relationship Specialty Start Date End Date Jasmyne Poe MD [address] [place] [phone] PCP - General 01/07/13 documented as of this encounter
--- OUTSIDE RECORDS SUMMARY | 2023-12-03 02:08 | XMS_ITS | Encounter Summary ---
Author Organization [facility] Address [address] [place] [address] Care Team Providers Care Body Design Checker Name Role Phone Jasmyne Poe MD Primary Care Provider + Encounter Details Date Type Department Care Team (Late st Contact Info) Description 03/05/2019 Lab Requisition [facility] Pathology & Laboratory Medicine - [facility] [address] [place] [address] Adri Levy, [address] [place] [phone] Encounter for other general examination Social History Tobacco Use Types Packs/Day Years Used Date Smoking Tobacco: Never Smokeless Tobacco: Never Alcohol Use Standard Drinks/Week Comments No 0 [...] [facility] Adult Primary Care - [place] [address] [place], [place] [phone] Jasmyne Poe MD [address] [place] [phone] documented as of this encounter Procedures Procedure Name Priority Date/Time Associated Diagnosis Comments PAP TEST Today 03/04/2019 9:10 EST Encounter for other general examination HPV DNA DETECTION WITH GENOTYPING, PCR Today 03/04/2019 9:10 EST Encounter for other general examination documented in this encounter Results * HUMAN PAPILLOMAVIRUS (HPV) DETECTION-HIGH RISK TYPES (03/04/2019 9:10 EST) HPV other High Risk types, PCR Negative Negative 03/10/2019 15:08 [facility] Comment:No E6 or E7 mRNA is detected from HPV types 16,18,31,33,35,39,45,51,52,56,58,59,66, and 68 by video game creator mediated amplification. Papanicolaou smear specimen (specimen) CERVIX UTERI STRUCTURE / Unknown 03/04/2019 9:10 EST 03/09/2019 11:59 EST Adri Levy ARTIST [employer] [facility]OLOG[facility] - GENER AL ORDERABLES [facility] [address] [place] [address] * PAP TEST (03/04/2019 9:10 EST) Specimens A. Cervix and/or Endocervix, , ThinPrep Imaging System with Manual Evaluation 03/10/2019 15:08 [facility] Specimen Adequacy Satisfactory for Evaluation - transformation zone component present 03/10/2019 15:08 [facility] General Categorization Negative for intraepithelial lesion or malignancy 03/10/2019 15:08 [facility] Descriptive Diagnosis Reactive cellular changes associated with inflammation present (includes repair). 03/10/2019 15:08 [facility] Attestation . By the signature below, the attending physician certifies that they have personally conducted a gross and/or microscopic examination of the described specimens and rendered or confirmed the above diagnosis. 03/10/2019 15:08 [facility] at 1508 Educational Comments This case was reviewed by Dr. Bernice Melgar who concurs with the diagnosis. 03/10/2019 15:08 [facility] Clinical History NONE 03/10/20 15:08 [facility] HPV The result for the Human Papillomavirus (HPV) Detection-High Risk Types is Negative. No E6 or E7 mRNA is detected from HPV types 16,18,31,33,35,39 ,45,51,52,56,58,5 9,66, and 68 by video game creator mediated amplification.Molly ting was performed on specimen [id number] and was resulted on 03/10/2019 1503 EST by IVETH, LAB INSTRUMENT RESULTS IN 03/10/2019 15:08 [facility] Scanned Images 03/10/2019 15:08 [facility] Papanicolaou smear specimen (specimen) CERVIX UTERI STRUCTURE / Unknown 03/04/2019 9:10 EST 03/05/2019 11:05 EST Adri Levy ARTIST [employer] PATHOLOGY ORDERABLES [facility] [address] [place] [address] documented in this encounter Visit Diagnoses Diagnosis Encounter for other general examination documented in this encounter Additional Health Concerns Infection Onset Date Last Indicated Resolved Time R/O COVID-19 10/16/2020 10/16/2020 10/16/2020 5:30 EDT documented as of this encounter Care Teams Body Design Checker Relationship Specialty Start Date End Date Jasmyne Poe MD [address] [place] [phone] PCP - General 01/07/13 documented as of this encounter
--- OUTSIDE RECORDS SUMMARY | 2023-12-03 02:08 | XMS_ITS | Encounter Summary ---
Author Organization [facility] Address [address] [place] [address] Care Team Providers Care Crematorium Operator Name Role Phone Jasmyne Poe MD Primary Care Provider + Reason for Visit * Reason Onset Date Comments Pre-visit Orders 05/12/2019 Encounter Details Date Type Department Care Team (Late st Contact Info) Description 05/12/2019 Telephone [facility] Adult Primary Care - [address] [address] Jasmyne Poe MD [address] [place] [phone] Pre-visit Orders Social History Tobacco Use Types Packs/Day Years [...] encounter Miscellaneous Notes * Telephone Encounter - Marj Solis - 05/12/2019 1108 EST She asked that the labs be faxed to [phone] (infusion dept at hospital in [facility]) and she would get them drawn there. Printed and faxed. Marj Solis 05/12/2019 11:12 documented in this encounter Plan of Treatment Upcoming Encounters Date Type Department Care Team (Late st Contact Info) Description 05/20/2024 14:45 EST Office Visit [facility] Adult Primary Care - [address] [phone] Jasmyne Poe MD [address] [place] [phone] documented as of this encounter Visit Diagnoses Not on filedocumented in this encounter Care Teams Crematorium Operator Relationship Specialty Start Date End Date Jasmyne Poe MD [address] [place] [phone] PCP - General 01/07/13 documented as of this encounter
--- OUTSIDE RECORDS SUMMARY | 2023-12-03 02:08 | XMS_ITS | Encounter Summary ---
Author Organization [facility] Address [address] [place] [address] Care Team Providers Care Metal Dresser Name Role Phone Jasmyne Poe MD Primary Care Provider + Encounter Details Date Type Department Care Team (Late st Contact Info) Description 07/23/2019 Orders Only [facility] Rheumatology [address] [place] [address] Kylie Portillo RN Undifferentiated connective tissue disease (HCC-CMS) (Primary Dx) Social History Tobacco Use Types Packs/Day Years Used Date Smoking Tobacco: Never Smokeless Tobacco: Never Alcohol Use Standard Drinks/Week Comments No 0 (1 standard drink = 0.6 oz pur e alcohol) Hunger Vital Sign Answer Date Recorded Worried About Running Out of Food in the Last Ye ar Never true 05/15/2019 Ran Out of Food in the Last Year Never true 05/15/2019 Sex and Gender Information Value Date Recorded Sex Assigned at Not on file Gender Identity Female 06/02/2019 15:13 EST Sexual Orientation Not on file COVID-19 Exposure Response Date Recorded In the last month, have you been in contact with someone who was confirmed or suspected to have Coronavirus / COVID-19? No / Unsure 07/22/2019 16:39 EDT documented as of this encounter Functional [...] as of this encounter Progress Notes * Kylie Portillo, RN - 07/23/2019 0904 EDT MAG and high resolution chest CT ordered to be done at [facility] per Dr. Sandhu's instructions. documented in this encounter Plan of Treatment Upcoming Encounters Date Type Department Care Team (Late st Contact Info) Description 05/20/2024 14:45 EST Office Visit [facility] Adult Primary Care [address] [phone] Jasmyne Poe MD [address] [place] [phone] documented as of this encounter Visit Diagnoses Diagnosis Undifferentiated connective tissue disease (HCC-CMS)- Primary Unspecified diffuse connective tissue disease documented in this encounter Care Teams Metal Dresser Relationship Specialty Start Date End Date Jasmyne Poe MD [address] [place] [phone] PCP - General 01/07/13 documented as of this encounter
--- OUTSIDE RECORDS SUMMARY | 2023-12-03 02:08 | XMS_ITS | Encounter Summary ---
Author Organization [facility] Address [address] [place] [address] Care Team Providers Care High School Music Instructor Name Role Phone Jasmyne Poe MD Primary Care Provider + Reason for Visit * Reason Onset Date Comments Other 06/10/2019 Encounter Details Date Type Department Care Team (Late st Contact Info) Description 06/10/2019 Telephone [facility] [address] [place], [place] [phone] Luke Sandhu MD [facility] Rheumatology [address] [place] [address] [place] [phone] Other Social History Tobacco Use Types Packs/Day [...] No 02/13/2018 Cognitive Status Response Date of Assess ent Because of a physical, menta l, or emotional condition, does this person have serious difficulty concentrating, remembering, or making decisions? No 02/13/2018 documented as of this encounter Miscellaneous Notes * Telephone Encounter - Kylie Portillo, RN - 06/10/2019 1650 EST Called and reviewed positive anti centromere antibody test with Kirsten with understanding epxressed. She will review in greater detail at appointment 07/13/19. * Telephone Encounter - Genesis Hodges - 06/10/2019 1550 EST Returning a call re labs Can be reached 6:45-3:15 After 3:15 documented in this encounter Plan of Treatment Upcoming Encounters Date Type Department Care Team (Late st Contact Info) Description 05/20/2024 14:45 EST Office Visit [facility] Adult Primary Care - [address] [address] Jasmyne Poe MD [address] [place] [phone] documented as of this encounter Visit Diagnoses Not on filedocumented in this encounter Care Teams High School Music Instructor Relationship Specialty Start Date End Date Jasmyne Poe MD [address] [place] [phone] PCP - General 01/07/13 documented as of this encounter
--- OUTSIDE RECORDS SUMMARY | 2023-12-03 02:08 | XMS_ITS | Encounter Summary ---
Author Organization [facility] Address [address] [place] [address] Care Team Providers Care Waterproofer Name Role Phone Jasmyne Poe MD Primary Care Provider + Encounter Details Date Type Department Care Team (Latest Contact Info) Description 07/22/2019 Travel Social History Tobacco Use Types Packs/Day [...] Info) Description 05/20/2024 14:45 EST Office Visit [facility] Adult Primary Care - [address] [phone] Jasmyne Poe MD [address] [place] [phone] documented as of this encounter Visit Diagnoses Not on filedocumented in this encounter Care Teams Waterproofer Relationship Specialty Start Date End Date Jasmyne Poe MD [address] [place] [phone] PCP - General 01/07/13 documented as of this encounter
--- OUTSIDE RECORDS SUMMARY | 2023-12-03 02:08 | XMS_ITS | Encounter Summary ---
Author Organization [facility] Address [address] [place] [address] Care Team Providers Care Learning Disabilities Resource Teacher Name Role Phone Jasmyne Poe MD Primary Care Provider + Reason for Visit * Reason Comments Other Encounter Details Date Type Department Care Team (Late st Contact Info) Description 05/24/2018 [facility] Adult Primary Care - [address] [address] Jasmyne Poe MD [address] [place] [phone] Other Social History Tobacco Use Types Packs/Day [...] 05/20/2024 14:45 EST Office Visit [facility] Adult Primary Care [facility] [address] [place], [place] [phone] Jasmyne Poe MD [address] [place] [phone] documented as of this encounter Visit Diagnoses Not on filedocumented in this encounter Additional Health Concerns Infection Onset Date Last Indicated Resolved Time R/O COVID-19 10/16/2020 10/16/2020 10/16/2020 5:30 EDT documented as of this encounter Care Teams Learning Disabilities Resource Teacher Relationship Specialty Start Date End Date Jasmyne Poe MD [address] [place] [phone] PCP - General 01/07/13 documented as of this encounter
--- OUTSIDE RECORDS SUMMARY | 2023-12-03 02:08 | XMS_ITS | Encounter Summary ---
Author Organization [facility] Address [address] [place] [address] Care Team Providers Care Cna Instructor Name Role Phone Jasmyne Poe MD Primary Care Provider + Encounter Details Date Type Department Care Team (Late st Contact Info) Description 05/05/2018 Orders Only [facility] Adult Primary Care - [address] [address] Jasmyne Poe MD [address] [place] [phone] Social History Tobacco Use Types Packs/Day [...] [facility] - [address] [phone] Jasmyne Poe MD [address] [place] [phone] documented as of this encounter Visit Diagnoses Not on filedocumented in this encounter Care Teams Cna Instructor Relationship Specialty Start Date End Date Jasmyne Poe MD [address] [place] [phone] PCP - General 01/07/13 documented as of this encounter
--- OUTSIDE RECORDS SUMMARY | 2023-12-03 02:08 | XMS_ITS | Encounter Summary ---
Author Organization [facility] Address [address] [place] [address] Care Team Providers Care Customer Account Administrator Name Role Phone Jasmyne Poe MD Primary Care Provider + Reason for Visit * Reason Onset Date Comments Other 09/06/2019 Encounter Details Date Type Department Care Team (Late st Contact Info) Description 09/06/2019 Telephone [facility] Rheumatology [address] [place] [address] Luke Sandhu MD [facility] Rheumatology [address] [place] [address] [place] [address] Other Social History Tobacco Use Types Packs/Day [...] encounter Miscellaneous Notes * Telephone Encounter - Genesis Hodges - 09/06/2019 1211 EDT error documented in this encounter Plan of Treatment Upcoming Encounters Date Type Department Care Team (Late st Contact Info) Description 05/20/2024 14:45 EST Office Visit [facility] Adult Primary Care - [address] [phone] Jasmyne Poe MD [address] [place] [phone] documented as of this encounter Visit Diagnoses Not on filedocumented in this encounter Care Teams Customer Account Administrator Relationship Specialty Start Date End Date Jasmyne Poe MD [address] [place] [phone] PCP - General 01/07/13 documented as of this encounter
--- OUTSIDE RECORDS SUMMARY | 2023-12-03 02:08 | XMS_ITS | Encounter Summary ---
Author Organization [facility] Address [address] [place] [address] Care Team Providers Care Marketing Technology Specialist Name Role Phone Jasmyne Poe MD Primary Care Provider + Encounter Details Date Type Department Care Team (Late st Contact Info) Description 10/14/2019 Results Only Imaging [facility] Card[facility] Clinic [address] [place] [address] Anthony Posey MD [address] [facility] [address] [place] [address] Social History Tobacco Use Types Packs/Day Years [...] Info) Description 05/20/2024 14:45 EST Office Visit [facility] Adult Primary Care - [place] [address] [place] [address] Jasmyne Poe MD [address] [place] [phone] documented as of this encounter Procedures Procedure Name Priority Date/Time Associated Diagnosis Comments TRANSTHORACIC ECHO (TTE) COMPLETE 10/14/2019 7:49 EDT documented in this encounter Results * TRANSTHORACIC ECHO (TTE) COMPLETE (10/14/2019 7:49 EDT) Anatomical Region Laterality Modality Ultrasound 10/14/2019 7:49 EDT Narrative 10/16/2019 15:36 EDT *[facility]* *[facility]* [address] [place] [address] Date of study: 10/14/2019 Transthoracic Echocardiography M-mode, complete 2D, complete spectral Doppler, and color Doppler *STUDY CONCLUSIONS* Summary: 1. Left ventricle: The cavity size was normal. Wall thickness was at the ?? upper limits of normal. Systolic function was normal. The estimated ?? ejection fraction was 60-65%. Wall motion was normal; there were no ?? regional wall motion abnormalities. 2. Aortic valve: Transvalvular velocity was minimally increased. There ?? was very mild stenosis. Valve area (VTI): 1.7cm^2. Valve area ?? (Vmean): 1.9cm^2. 3. Ascending aorta: The ascending aorta was at upper normal limits. 4. Mitral valve: There was mild regurgitation. 5. Right ventricle: The cavity size was normal. Wall thickness was ?? normal. Systolic function was normal. 6. Pulmonary arteries: Pulmonary systolic pressure was at the upper ?? limits of normal. PA peak pressure: 36mm Hg (S). *PATIENT PRESENTATION* Height: ? 175.3cm (69in ) S/D Pressure: 138 / 73 Weight: ? 87.7kg (192.6lb ) BSA: ?2.09m^2 Test start time: ??07:53 AM. Test stop time: ??08:30 AM. REFERRING ?Anthony Posey PERFORMING ?? [facility] SOFTWARE DATABASE ARCHITECT ??Crystal Taylor ORDERING ? Anthony Posey *PROCEDURE DATA* Procedure information: ??The patient was identified by two identifiers. This study was interpreted by [facility]. Pertinent images and digital data are archived for permanent storage and are available for subsequent review. No prior study was available for comparison. ??Study status: Routine. Transthoracic echocardiography. ??M-mode, complete 2D, complete spectral Doppler, and color Doppler. A Transthoracic Echocardiogram was performed. Scanning was performed from the parasternal, apical, subcostal, and suprasternal notch acoustic windows. Images were obtained using a [facility] epiq 2 cardiac ultrasound machine. ??Study completion: ??The patient tolerated the procedure well. 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 Wall thickness was at the upper limits of normal. Systolic function was normal. The estimated ejection fraction was 60-65%. Wall motion was normal; there were no regional wall motion abnormalities. Aortic valve: ?? Trileaflet; normal thickness leaflets. Mobility was not restricted. ??Doppler: ??Transvalvular velocity was minimally increased. There was very mild stenosis. There was no significant regurgitation. VTI ratio of LVOT to aortic valve: 0.66. Valve area (VTI): 1.7cm^2. Indexed valve area (VTI): 0.8cm^2/m^2. Mean velocity ratio of LVOT to aortic valve: 0.74. Valve area (Vmean): 1.9cm^2. Indexed valve area (Vmean): 0.9cm^2/m^2. ?Mean gradient (S): 7mm Hg. Aorta: ??Aortic root: The aortic root was normal in size. Ascending aorta: The ascending aorta was at upper normal limits. Aortic arch: The aortic arch was normal in size. Mitral valve: ?? Mildly thickened leaflets. Mobility was not restricted. Doppler: ??Transvalvular velocity was within the normal range. There was no evidence for stenosis. There was mild regurgitation. ?Valve area by pressure half-time: 3.6cm^2. Indexed valve area by pressure half-time: 1.7cm^2/m^2. ?Peak gradient (D): 3.3mm Hg. Left atrium: ??The atrium was at the upper limits of normal in size. Right ventricle: ??The cavity size was normal. Wall thickness was normal. Systolic function was normal. Pulmonic valve: ?Doppler: ??Transvalvular velocity was within the normal range. There was no evidence for stenosis. There was no significant regurgitation. Tricuspid valve: ?? Structurally normal valve. ?Doppler: ??Transvalvular velocity was within the normal range. There was no evidence for stenosis. There was mild regurgitation. Pulmonary artery: ?? Pulmonary systolic pressure was at the upper limits of normal. Right atrium: ??The atrium was normal in size. Pericardium: ??There was no pericardial effusion. Systemic veins: Inferior vena cava: The vessel was normal in size. The respirophasic diameter changes were in the normal range (greater than or equal to 50%), consistent with normal central venous pressure. Measurements Left ventricle ?Value ?Reference LV ID, ED, PLAX ? 4.7 ?? cm ? 3.5 - 6.0 LV ID, ES, PLAX ? 3.2 ?? cm ? 2.1 - 4.0 LV PW thickness, ED, PLAX ? 1.0 ?? cm ? LV end-diastolic volume, 1-p A2C ?91 ?ml ? LV ejection fraction, 1-p A2C ? 74 ?% ? LV e', lateral ?0.103 m/sec ? LV E/e', lateral ?9 ? LV e', medial ? 0.077 m/sec ? LV E/e', medial ? 11.8 ? LV e', average ?0.09 ??m/sec ? LV E/e', average ?10 ? Ventricular septum ?Value ?Reference IVS thickness, ED, PLAX ? 1.1 ?? cm ? LVOT ?Value ?Reference LVOT ID, S ?1.8 ?? cm ? LVOT area ? 2.5 ?? cm^2 ? LVOT peak velocity, S ? 1.33 ??m/sec ? LVOT mean velocity, S ? 0.89 ??m/sec ? LVOT VTI, S ? 31.2 ??cm ? LVOT peak gradient, S ? 7 ? mm Hg ? LVOT mean gradient, S ? 4 ? mm Hg ? Stroke volume (SV), LVOT DP ? 79 ?ml ? Stroke index (SV/bsa), LVOT DP ?38 ?ml/m^2 ?? Aortic valve ?Value ?Reference Aortic valve mean velocity, S ? 1.2 ?? m/sec ? Aortic valve VTI, S ? 47.6 ??cm ? Aortic mean gradient, S ? 7 ? mm Hg ? VTI ratio, LVOT/AV ?0.66 ? Aortic valve area, VTI ?1.7 ?? cm^2 ? Velocity ratio, mean, LVOT/AV ? 0.74 ? Aortic valve area, mean velocity ?1.9 ?? cm^2 ? Aortic valve area/bsa, mean velocity ?0.9 ?? cm^2/m^2 Aorta ? Value ?Reference Aortic root ID ?2.9 ?? cm ? Ascending aorta ID, A-P ? 3.4 ?? cm ? Aortic arch ID, innominate-LCCA ? 2.9 ?? cm ? 2.0 - 3.6 Left atrium ? Value ?Reference LA ID, A-P, ES ?3.8 ?? cm ? LA ID/bsa, A-P ?1.8 ?? cm/m^2 ?? <=2.2 LA volume, ES, 1-p A4C ?63 ?ml ? LA volume/bsa, ES, 1-p A4C ?30 ?ml/m^2 ?? LA volume, ES, 2-p ?66 ?ml ? LA volume/bsa, ES, 2-p ?32 ?ml/m^2 ?? LA/aortic root ratio ?1.31 ? Mitral valve ?Value ?Reference Mitral E-wave peak velocity ? 0.91 ??m/sec ? Mitral A-wave peak velocity ? 0.78 ??m/sec ? Mitral deceleration slope ? 429 ?? cm/s^2 ?? Mitral deceleration time ?212 ?? ms ? 150 - 230 Mitral pressure half-time ? 62 ?ms ? Mitral peak gradient, D ? 3.3 ?? mm Hg ? Mitral E/A ratio, peak ?1.2 ? Mitral valve area, PHT, DP ?3.6 ?? cm^2 ? Pulmonary veins ? Value ?Reference Pulmonary vein peak velocity, S ? 0.52 ??m/sec ? Pulmonary vein peak velocity, D ? 0.38 ??m/sec ? Pulmonary vein velocity ratio, peak, ?1.4 ? S/D Pulmonary vein A-wave reversal peak ? 0.34 ??m/sec ? velocity Pulmonary arteries ?Value ?Reference PA pressure, S, DP ?(H) ? 36 ?mm Hg ?<=30 Tricuspid valve ? Value ?Reference Tricuspid regurg peak velocity ?2.5 ?? m/sec ? Tricuspid peak RV-RA gradient ? 25.8 ??mm Hg ? Tricuspid maximal regurg velocity, ?2.54 ??m/sec ? PISA Right atrium ?Value ?Reference RA ID, M-L, ES ?5.6 ?? cm ? RA area, ES, A4C ?16.7 ??cm^2 ? 8.3 - 19.5 RA volume, ES, 1-p A4C ?41 ?ml ? RA volume/bsa, ES, 1-p A4C ?20 ?ml/m^2 ?? Systemic veins ?Value ?Reference Estimated CVP ? 10 ?mm Hg ? Right ventricle ? Value ?Reference RV pressure, S, DP ?(H) ? 36 ?mm Hg ?<=30 Legend: (L) ??and ??(H) ??lily values outside specified reference range. I have personally reviewed the images and have reviewed and edited the reported findings. Electronically signed by Anderson Floyd 10/16/2019 15:36 Procedure Note Anderson Floyd MD - 10/16/2019 *[facility]* *[facility]* [address] [place] [address] Date of study: 10/14/2019 Transthoracic Echocardiography M-mode, [...] normal. PA peak pressure: 36mm Hg (S). *PATIENT PRESENTATION* Height: 175.3cm (69in ) S/D Pressure: 138 / 73 Weight: 87.7kg (192.6lb ) BSA: 2.09m^2 Test start time: 07:53 AM. Test stop time: 08:30 AM. REFERRING Anthony Posey PERFORMING [facility] SOFTWARE DATABASE ARCHITECT Crystal Taylor ORDERING Anthony Posey *PROCEDURE DATA* Procedure information: The patient was identified by two identifiers. This study was interpreted by [facility]. Pertinent images and digital data are archived for permanent storage and are available for subsequent review. No prior study was available for comparison. Study status: Routine. Transthoracic echocardiography. M-mode, complete 2D, complete spectral Doppler, and color Doppler. A Transthoracic Echocardiogram was performed. Scanning was performed from the parasternal, apical, subcostal, and suprasternal notch acoustic windows. Images were obtained using a [facility] epiq 2 cardiac ultrasound machine. Study completion: The patient tolerated the procedure well. *INDICATIONS AND HISTORY* Indications: PHTN i27.20 *CARDIAC ANATOMY* Left ventricle: The cavity size was normal. Wall thickness was at the upper limits of normal. Systolic function was normal. The estimated ejection fraction was 60-65%. Wall motion was normal; there were no regional wall motion abnormalities. Aortic valve: Trileaflet; normal thickness leaflets. Mobility was not restricted. Doppler: Transvalvular velocity was minimally increased. There was very mild stenosis. There was no significant regurgitation. VTI ratio of LVOT to aortic valve: 0.66. Valve area (VTI): 1.7cm^2. Indexed valve area (VTI): 0.8cm^2/m^2. Mean velocity ratio of LVOT to aortic valve: 0.74. Valve area (Vmean): 1.9cm^2. Indexed valve area (Vmean): 0.9cm^2/m^2. Mean gradient (S): 7mm Hg. Aorta: Aortic root: The aortic root was normal in size. Ascending aorta: The ascending aorta was at upper normal limits. Aortic arch: The aortic arch was normal in size. Mitral valve: Mildly thickened leaflets. Mobility was not restricted. Doppler: Transvalvular velocity was within the normal range. There was no evidence for stenosis. There was mild regurgitation. Valve area by pressure half-time: 3.6cm^2. Indexed valve area by pressure half-time: 1.7cm^2/m^2. Peak gradient (D): 3.3mm Hg. Left atrium: The atrium was at the upper limits of normal in size. Right ventricle: The cavity size was normal. Wall thickness was normal. Systolic function was normal. Pulmonic valve: Doppler: Transvalvular velocity was within the normal range. There was no evidence for stenosis. There was no significant regurgitation. Tricuspid valve: Structurally normal valve. Doppler: Transvalvular velocity was within the normal range. There was no evidence for stenosis. There was mild regurgitation. Pulmonary artery: Pulmonary systolic pressure was at the upper limits of normal. Right atrium: The atrium was normal in size. Pericardium: There was no pericardial effusion. Systemic veins: Inferior vena cava: The vessel was normal in size. The respirophasic diameter changes were in the normal range (greater than or equal to 50%), consistent with normal central venous pressure. Measurements Left ventricle Value Reference LV ID, ED, PLAX 4.7 cm 3.5 - 6.0 LV ID, ES, PLAX 3.2 cm 2.1 - 4.0 LV PW thickness, ED, PLAX 1.0 cm LV end-diastolic volume, 1-p A2C 91 ml LV ejection fraction, 1-p A2C 74 % LV e', lateral 0.103 m/sec LV E/e', lateral 9 LV e', medial 0.077 m/sec LV E/e', medial 11.8 LV e', average 0.09 m/sec LV E/e', average 10 Ventricular septum Value Reference IVS thickness, ED, PLAX 1.1 cm LVOT Value Reference LVOT ID, S 1.8 cm LVOT area 2.5 cm^2 LVOT peak velocity, S 1.33 m/sec LVOT mean velocity, S 0.89 m/sec LVOT VTI, S 31.2 cm LVOT peak gradient, S 7 mm Hg LVOT mean gradient, S 4 mm Hg Stroke volume (SV), LVOT DP 79 ml Stroke index (SV/bsa), LVOT DP 38 ml/m^2 Aortic valve Value Reference Aortic valve mean velocity, S 1.2 m/sec Aortic valve VTI, S 47.6 cm Aortic mean gradient, S 7 mm Hg VTI ratio, LVOT/AV 0.66 Aortic valve area, VTI 1.7 cm^2 Velocity ratio, mean, LVOT/AV 0.74 Aortic valve area, mean velocity 1.9 cm^2 Aortic valve area/bsa, mean velocity 0.9 cm^2/m^2 Aorta Value Reference Aortic root ID 2.9 cm Ascending aorta ID, A-P 3.4 cm Aortic arch ID, innominate-LCCA 2.9 cm 2.0 - 3.6 Left atrium Value Reference LA ID, A-P, ES 3.8 cm LA ID/bsa, A-P 1.8 cm/m^2 <=2.2 LA volume, ES, 1-p A4C 63 ml LA volume/bsa, ES, 1-p A4C 30 ml/m^2 LA volume, ES, 2-p 66 ml LA volume/bsa, ES, 2-p 32 ml/m^2 LA/aortic root ratio 1.31 Mitral valve Value Reference Mitral E-wave peak velocity 0.91 m/sec Mitral A-wave peak velocity 0.78 m/sec Mitral deceleration slope 429 cm/s^2 Mitral deceleration time 212 ms 150 - 230 Mitral pressure half-time 62 ms Mitral peak gradient, D 3.3 mm Hg Mitral E/A ratio, peak 1.2 Mitral valve area, PHT, DP 3.6 cm^2 Pulmonary veins Value Reference Pulmonary vein peak velocity, S 0.52 m/sec Pulmonary vein peak velocity, D 0.38 m/sec Pulmonary vein velocity ratio, peak, 1.4 S/D Pulmonary vein A-wave reversal peak 0.34 m/sec velocity Pulmonary arteries Value Reference PA pressure, S, DP (H) 36 mm Hg <=30 Tricuspid valve Value Reference Tricuspid regurg peak velocity 2.5 m/sec Tricuspid peak RV-RA gradient 25.8 mm Hg Tricuspid maximal regurg velocity, 2.54 m/sec PISA Right atrium Value Reference RA ID, M-L, ES 5.6 cm RA area, ES, A4C 16.7 cm^2 8.3 - 19.5 RA volume, ES, 1-p A4C 41 ml RA volume/bsa, ES, 1-p A4C 20 ml/m^2 Systemic veins Value Reference Estimated CVP 10 mm Hg Right ventricle Value Reference RV pressure, S, DP (H) 36 mm Hg <=30 Legend: (L) and (H) lily values outside specified reference range. I have personally reviewed the images and have reviewed and edited the reported findings. Electronically signed by Anderson Floyd 10/16/2019 15:36 Anthony Posey MD CARDIAC ECHO ORDERAB LES documented in this encounter Visit Diagnoses Not on filedocumented in this encounter Additional Health Concerns Infection Onset Date Last Indicated Resolved Time R/O COVID-19 10/16/2020 10/16/2020 10/16/2020 5:30 EDT documented as of this encounter Care Teams Marketing Technology Specialist Relationship Specialty Start Date End Date Jasmyne Poe MD [address] [place] [phone] PCP - General 01/07/13 documented as of this encounter
--- OUTSIDE RECORDS SUMMARY | 2023-12-03 02:08 | XMS_ITS | Encounter Summary ---
Author Organization [facility] Address [address] [place] [address] Care Team Providers Care Stone Crusher Operator Name Role Phone Jasmyne Poe MD Primary Care Provider + Reason for Visit * Reason Comments Cardiac Testing Encounter Details Date Type Department Care Team (Latest Contact Info) Description 02/24/2018 15:00 EST Procedure visit [facility] Cardiology - [address] [place] [address] Jasmyne Poe MD [address] [place] [phone] Mp Drew Discharge Disposition: Auto Discharge Social History Tobacco Use Types Packs/Day Years [...] No 02/13/2018 documented as of this encounter Discharge Diagnoses Diagnosis I51.7 Cardiomegaly-I51.7[ICD-10-CM] 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-CM] I48.0 Atrial fibrillation-I48.0[ICD-10-CM] documented in this encounter Discharge Disposition Disposition Code Departure Means Destination Auto Discharge documented in this encounter Plan of Treatment Upcoming Encounters Date Type Department Care Team (Late st Contact Info) Description 05/20/2024 14:45 EST Office Visit [facility] Adult Primary Care - [address] [phone] Jasmyne Poe MD [address] [place] [phone] documented as of this encounter Visit Diagnoses Not on filedocumented in this encounter Care Teams Stone Crusher Operator Relationship Specialty Start Date End Date Jasmyne Poe MD [address] [place] [phone] PCP - General 01/07/13 documented as of this encounter
--- OUTSIDE RECORDS SUMMARY | 2023-12-03 02:08 | XMS_ITS | Encounter Summary ---
Author Organization [facility] Address [address] [place] [address] Care Team Providers Care Truck Loader Overhead Crane Name Role Phone Jasmyne Poe MD Primary Care Provider + Reason for Visit * Reason Onset Date Comments Medications Refill 01/20/2019 Encounter Details Date Type Department Care Team (Late st Contact Info) Description 01/20/2019 Refill [facility] Adult Primary Care - [address] [address] Jasmyne Poe MD [address] [place] [phone] Medications Refill Social History Tobacco Use [...] Tab by mouth daily. 90 Tab 1 01/20/2019 09/17/2019 documented in this encounter Miscellaneous Notes * Telephone Encounter - Niesha Milligan RN - 01/20/2019 1323 EDT Medication(s) Requested: Synthroid 50mcg Preferred Pharmacy: [facility] Is patient out of medication? Unknown Last Refill Date: 10/01/18 #90 with no RF Last Visit Date with Ordering Provider: 05/25/18 Annual- to follow up in one year. TSH normal in February 2018. Next Non-Acute Visit Date Scheduled with Care Team: Yes. 05/26/2019 NIESHA MILLIGAN RN 01/20/2019 13:23 * Telephone Encounter - Niesha Milligan RN - 01/20/2019 1323 EDTFrom: Kirsten Almaguer Sent: 01/20/2019 5:31 EDT Subject: Medication Renewal Request Kirsten Almaguer would like a refill of the following medications: levothyroxine (SYNTHROID) 50 mcg tablet [Jasmyne Poe MD] Preferred pharmacy: [address] documented in this encounter Plan of Treatment Upcoming Encounters Date Type Department Care Team (Late st Contact Info) Description 05/20/2024 14:45 EST Office Visit [facility] Adult Primary Care - [address] [address] Jasmyne Poe MD [address] [place] [phone] documented as of this encounter Visit Diagnoses Not on filedocumented in this encounter Discontinued Medications Medication Sig Discontinue Reason Start Date End Da te levothyroxine (SYNTHROID) 50 mcg tablet Take 1 Tab by mouth daily. Reorder 10/01/2018 01/20/2019 documented as of this encounter Care Teams Truck Loader Overhead Crane Relationship Specialty Start Date End Date Jasmyne Poe MD [address] [place] [phone] PCP - General 01/07/13 documented as of this encounter
--- OUTSIDE RECORDS SUMMARY | 2023-12-03 02:08 | XMS_ITS | Encounter Summary ---
Author Organization [facility] Address [address] [place] [address] Care Team Providers Care Swatch Folder Name Role Phone Jasmyne Poe MD Primary Care Provider + Reason for Visit * Reason Onset Date Comments Pre-visit Orders 05/06/2019 Encounter Details Date Type Department Care Team (Late st Contact Info) Description 05/06/2019 Orders Only [facility] Adult Primary Care - [address] [address] Jasmyne Poe MD [address] [place] [phone] Prediabetes (Primary Dx); Encounter for preventive care; Hypothyroidism (acquired) Social History Tobacco Use Types Packs/Day Years [...] encounter Progress Notes * Marj Solis - 05/06/2019 1555 EST Pre-visit orders pended and routed to AB for review and signature. Marj Solis 05/06/2019 15:59 documented in this encounter Plan of Treatment Upcoming Encounters Date Type Department Care Team (Late st Contact Info) Description 05/20/2024 14:45 EST Office Visit [facility] Adult Primary Care - [address] [address] Jasmyne Poe MD [address] [place] [phone] documented as of this encounter Visit Diagnoses Diagnosis Prediabetes- Primary Other abnormal glucose Encounter for preventive care Hypothyroidism (acquired) Unspecified hypothyroidism documented in this encounter Care Teams Swatch Folder Relationship Specialty Start Date End Date Jasmyne Poe MD [address] [place] [phone] PCP - General 01/07/13 documented as of this encounter
--- OUTSIDE RECORDS SUMMARY | 2023-12-03 02:08 | XMS_ITS | Encounter Summary ---
Author Organization [facility] Address [address] [place] [address] Care Team Providers Care Health And Fitness Instructor Name Role Phone Jasmyne Poe MD Primary Care Provider + Reason for Visit * Reason Onset Date Comments Medications Refill 05/04/2019 Encounter Details Date Type Department Care Team (Late st Contact Info) Description 05/04/2019 Refill [facility] Adult Primary Care - [address] [address] Jasmyne Poe MD [address] [place] [phone] Medications Refill Social History Tobacco Use [...] Dispensed Refills Start Date End Da te DILTiazem (CARDIZEM CD) 240 mg ER capsule Take 1 Cap by mouth daily. 30 Cap 05/04/2019 06/15/2019 documented in this encounter Miscellaneous Notes * Telephone Encounter - Cassie Bradford RN - 05/04/2019 1342 ESTFrom: Kirsten Almaguer Sent: 05/04/2019 11:37 EST Subject: Medication Renewal Request Kirsten Meme Almaguer would like a refill of the following medications: DILTiazem (CARDIZEM CD) 240 mg ER capsule [Jasmyne Poe MD] Preferred pharmacy: [address] documented in this encounter Plan of Treatment Upcoming Encounters Date Type Department Care Team (Late st Contact Info) Description 05/20/2024 14:45 EST Office Visit [facility] Adult Primary Care [facility] [address] [place] [address] Jasmyne Poe MD [address] [place] [phone] documented as of this encounter Visit Diagnoses Not on filedocumented in this encounter Discontinued Medications Medication Sig Discontinue Reason Start Date End Da te DILTiazem (CARDIZEM CD) 240 mg ER capsule Take 1 Cap by mouth daily. Reorder 05/25/2018 05/04/2019 documented as of this encounter Care Teams Health And Fitness Instructor Relationship Specialty Start Date End Date Jasmyne Poe MD [address] [place] [phone] PCP - General 01/07/13 documented as of this encounter
--- OUTSIDE RECORDS SUMMARY | 2023-12-03 02:08 | XMS_ITS | Encounter Summary ---
Author Organization [facility] Address [address] [place] [address] Care Team Providers Care Purchasing Director Name Role Phone Jasmyne Poe MD Primary Care Provider + Reason for Visit * Reason Onset Date Comments Results 05/28/2019 Encounter Details Date Type Department Care Team (Late st Contact Info) Description 05/28/2019 Orders Only [facility] Adult Primary Care - [address] [address] Jasmyne Poe MD [address] [place] [phone] Social History Tobacco Use Types Packs/Day [...] encounter Progress Notes * Marj Solis - 05/28/2019 1509 EST External lab results entered. Marj Solis 05/28/2019 15:29 documented in this encounter Plan of Treatment Upcoming Encounters Date Type Department Care Team (Late st Contact Info) Description 05/20/2024 14:45 EST Office Visit [facility] Adult Primary Care - [address] [address] Jasmyne Poe MD [address] [place] [phone] documented as of this encounter Procedures Procedure Name Priority Date/Time Associated Diagnosis Comments TSH Routine 05/21/2019 7:16 EST HEMOGLOBIN A1C Routine 05/21/2019 7:16 EST LIPID PROFILE (INCLUDES CHOLESTEROL, TRIGLYCERIDES, HDL, LDL) Routine 05/21/2019 7:16 EST COMPREHENSIVE METABOLIC PANEL (CMP) Routine 05/21/2019 7:16 EST documented in this encounter Results * HEMOGLOBIN A1C (05/21/2019 7:16 EST) Hemoglobin A1C, External 6.[address] [facility] Est Avg Glucose, External [facility] Blood VENOUS BLOOD / Unknown 05/21/2019 7:16 EST Jasmyne Poe MD CHEMISTRY & BLOO D GAS ORDERABLES [facility] * LIPID PROFILE (INCLUDES CHOLESTEROL, TRIGLYCERIDES, HDL, LDL) (05/21/2019 7:16 EST) Cholesterol, External [address] [facility] Triglycerides, External 106 [facility] HDL, External 40 [facility] LDL, External 143 [facility] Chol/HDL Ratio, External [facility] Fasting?, External [facility] Blood VENOUS BLOOD / Unknown 05/21/2019 7:16 EST Jasmyne Poe MD CHEMISTRY & BLOO D GAS ORDERABLES [facility] * COMPREHENSIVE METABOLIC PANEL (CMP) (05/21/2019 7:16 EST) Pathologist [facility] GFR, Calculated, External >=60.00 [facility] Glucose, Serum, External [address] [facility] Albumin, External 4.0 [facility] Total Alkaline Phosphatase, External 77 [facility] ALT, External 25 [facility] AST, External 11 [facility] BUN, External 18 [facility] Calculated Calcium, External [facility] Calcium, External 8.5 [facility] Chloride, External [address] [facility] CO2, External 31.1 [facility] Creatinine, External 0.62 [facility] Fasting?, External [facility] Potassium, External 3.9 [facility] Sodium, External 143 [facility] Total Protein, External 7.0 [facility] Bilirubin, Total, External 0.4 [facility] Blood VENOUS BLOOD / Unknown 05/21/2019 7:16 EST Jasmyne Poe MD CHEMISTRY & BLOO D GAS ORDERABLES [facility] * TSH (05/21/2019 7:16 EST) TSH, [facility] Blood VENOUS BLOOD / Unknown 05/21/2019 7:16 EST Jasmyne Poe MD CHEMISTRY & BLOO D GAS ORDERABLES [facility] documented in this encounter Visit Diagnoses Not on filedocumented in this encounter Orders Lab Orders Without Results Count Last Ordered D ate First Ordered Date HEMOGLOBIN A1C 2 05/21/2019 05/06/2019 COMPREHENSIVE METABOLIC PANEL (CMP) 2 05/06 LIPID PROFILE (INCLUDES CHOL ESTEROL, TRIGLYCERIDES, HDL, LDL) 2 05/06/2019 TSH 1 05/06/2019 documented in this encounter Care Teams Purchasing Director Relationship Specialty Start Date End Date Jasmyne Poe MD [address] [place] [phone] PCP - General 01/07/13 documented as of this encounter
--- OUTSIDE RECORDS SUMMARY | 2023-12-03 02:08 | XMS_ITS | Encounter Summary ---
Author Organization [facility] Address [address] [place] [address] Care Team Providers Care Internet Ecommerce Specialist Name Role Phone Jasmyne Poe MD Primary Care Provider + Reason for Visit * Reason Onset Date Comments Pre-visit Planning 05/07/2018 Encounter Details Date Type Department Care Team (Late st Contact Info) Description 05/07/2018 Orders Only [facility] Adult Primary Care - [address] [address] Fawn Claire LPN Encounter for preventive health examination (Primary Dx) Social History Tobacco Use Types [...] as of this encounter Progress Notes * Fawn Claire LPN - 05/07/2018 1053 EST Scheduled for physical 05/25/2018 documented in this encounter Plan of Treatment Upcoming Encounters Date Type Department Care Team (Late st Contact Info) Description 05/20/2024 14:45 EST Office Visit [facility] Adult Primary Care - [address] [phone] Jasmyne Poe MD [address] [place] [phone] documented as of this encounter Visit Diagnoses Diagnosis Encounter for preventive health examination- Primary Routine general medical examination at a health care facility documented in this encounter Care Teams Internet Ecommerce Specialist Relationship Specialty Start Date End Date Jasmyne Poe MD [address] [place] [phone] PCP - General 01/07/13 documented as of this encounter
--- OUTSIDE RECORDS SUMMARY | 2023-12-03 02:08 | XMS_ITS | Encounter Summary ---
Author Organization [facility] Address [address] [place] [address] Care Team Providers Care Medical Operations Supervisor Name Role Phone Jasmyne Poe MD Primary Care Provider + Reason for Visit * Reason Comments Joint Pain Encounter Details Date Type Department Care Team (Latest Contact Info) Description 07/22/2019 16:[address] [facility] Rheumatology [address] [place], [place] [id number] Luke Sandhu MD [facility] Rheumatology [address] [place] [address] [place] [phone] Undifferentiated connective tissue disease (HCC-CMS) (Primary Dx) [...] * Patient Instructions* Luke Sandhu MD - 07/22/2019 16:30 EDT I will ask for orders to be placed for repeat transthoracic echocardiogram and high-resolution CT scan. Please send pulmonary function test results [id number]. I have placed a cardiology consult for Anthony Posey documented in this encounter Progress Notes * Luke Sandhu MD - 07/22/2019 1630 EDT [facility] Rheumatology No chief complaint on file. Verbal consent: The concept of ???Telemedicine?? has been described to the patient. Patient has been informed of the anticipated benefits and possible risks. Patient understands the information provided regarding telemedicine, has had the opportunity to ask questions about this information, and all questions have been answered to patient???s satisfaction. Patient consents for the use of telemedicine in his/her medical care and authorizes the transmission of any relevant medical information to providers and their staff involved in patient???s medical or mental health care. HPI: Kirsten was referred by her primary care provider Jasmyne Poe from [facility] for evaluation of myalgias, polyarthralgias in the [...] having flares or episodes. Kirsten is a 56-year-old with medical history notable for osteoarthritis, anxiety, [...] has had for approximately 4 years. She describes pain all over involving legs, feet, back, neck, arms. 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 She has had what she describes as episodes or flares which are manifested by stiffness and achiness . The episodes are relatively infrequent. Her last episode was approximately 6 to 8 months ago. Shedid have laboratory testing which will be produced in the body of the note. In short she had a positive antinuclear antibody with 2 different titers and patterns. She had an elevated C-reactive protein. She had a slightly positive double-stranded DNA. Rheumatoid factor was negative. Anti-Ro and anti-La antibodies were negative. She states that when her legs bother her she [...] as follows: Kirsten is a 54-year-old who is presented with a 4-year history ofmyalgias and arthralgias who was initially evaluated by Podiatry due to foot wounds concerning for an underlying connective tissue disorder especially given positive antinuclear antibody testing. Herantinuclear antibody revealed 2 different patterns. She had 1 titer of 1:160 in a homogeneous pattern and another titer at 1:640 in a centromere staining pattern. Additionally further evaluation revealed a slightly elevated C-reactive protein as well as a borderline positive actq-sezuov-coiufybl DNA. According to Eular/ACR 2019 classification criteria she does not meet classification criteria for SLE. Initially one needs to have an entry criterion with a positive ALAINA which she does. Further thereare 7 clinical domains in 3 immunologic domains which are given numerical scores. A score of more than or equal to 10 with a positive ALAINA is highly specific and sensitive for systemic lupus erythematosus. I would give her a total of 6 points for an tuzg-jonkyx-bsitgbos DNA despite the fact that this is [...] and pulmonary hypertension. They are also found and approximately 15%of patients with primary biliary clinical cholangitis. They are found in between 4 [...] We discussed treatment options should she experience 1 of her stereotypical flares. I would advocate a short course of corticosteroidtherapy or a course of nonsteroidal anti-inflammatory medications. I have asked her to give me a call with any worsening of her symptoms or recurrence of 1 of her episodic flares. 07-22-2019 Interval events: No interval events. No flare for 6-8 months. Sometimes will feel stiff in the joints and extends to the muscles. Uses ibuprofen 3-4 times per week in the evening. Current Outpatient Medications: B Complex Vitamins (VITAMIN B COMPLEX) tablet cholecalciferol, Vitamin D3, 2,000 unit tablet DILTiazem (CARDIZEM CD) 240 mg ER capsule ibuprofen (MOTRIN) 200 mg tablet levomefolate calcium (L-METHYLFOLATE ORAL) levothyroxine (SYNTHROID) 50 mcg tablet Magnesium 250 mg tablet melatonin 3 mg tablet MULTIVIT &MINERALS/FERROUS FUM (MULTI VITAMIN ORAL) polyethylene glycol (GOLYTELY;NULYTELY) 236-22.74-6.74 -5.86 gram suspension sertraline (ZOLOFT) 25 mg tablet No current facility-administered medications for this visit. [...] grandmother ??? Heart Attack Other 60 grandfather- [place] ??? Leukemia Son AML Review of Systems: Constitutional: No fevers. She does have fatigue. She has previously reported night sweats. HEENT: No eye pain or previously diagnosed inflammatory eye conditions. She has eye dryness. She uses artificial tears and has been using this for more than 2 years. No vision loss. No hearing loss. No tinnitus. No mouth sores. No dry mouth. No facial rash. Cardiovascular: No chest pain. Occasional palpitations. Pulmonary: No dyspnea cough or wheezing. Gastrointestinal: No significant upper or lower GI [...] small joint swelling. No dactylitis. Physical Examination: There were no vitals taken for this visit. Telephone encounter No examination as this was a telephone encounter Labs: 12/11/2018: CBC with WBC 6.5 hemoglobin [...] negative. Anti-SSA antibody negative. Anti-Sexton antibody negative. Anti-BUSINESS CONTINUITY MANAGEMENT DIRECTOR antibody negative. Zalm-pkdklq-goliarpq DNA antibody slightly positive at 38.3. Diagnostic imaging: Labs: Lab Requisition on 06/04/2019 Component Date Value ??? C3 Complement 06/04/2019 128 ??? C4 Complement 06/04/2019 28 ??? LA [place] Summary 06/04/2019 Value:Negative for detection of lupus anticoagulant (LA). Where clinical suspicion for antiphospholipid syndrome is high, it may be appropriate to perform alternative LA or aPL assays. The laboratory criteria for Antiphospholipid Syndrome (aPL) include positive testing for one of thefollowing on 2 or more occasions, at least 12 weeks apart: 1. Lupus anticoagulant (LA), 2. Cardiolipin antibodies (IgG or IgM) in medium or high titer, 3. Beta2-glycoprotein 1 antibodies (IgG or IgM) in medium or terrance titer. Solid-phase assays for Beta2 glycoprotein 1 (B2GP1) and Cardiolipin antibodies are recommended whenevaluating a patient for antiphospholipid syndrome. Correlation with those results is advised. Choco Carmona IV, MD ??? Dilute Viper Venom 06/04/2019 35.9 ??? Silica Clotting Time 06/04/2019 46.1 ??? Pathology Review Comment* 06/04/2019 Reviewed by Choco Carmona IV, MD Office Visit on 06/04/2019 Component Date Value ??? SED RATE - [facility] 06/04/2019 8 ??? CPK - [facility] 06/04/2019 87 ??? C-Reactive Protein 06/04/2019 5.7 ? ? ANTI CENTROMERE ANTIBODY* 06/04/2019 >8.0* ??? C3 Complement 06/04/2019 128 ??? C4 Complement 06/04/2019 28 ??? Dilute Viper Venom 06/04/2019 35.9 ??? LA [place] Summary 06/04/2019 (See Note) ??? Silica Clotting Time 06/04/2019 46.1 Orders Only on 05/28/2019 Component Date Value ??? TSH, External 05/21/2019 2.35 ? ? GFR, Calculated, External 05/21/2019 >=60.00 ??? Glucose, Serum, External 05/21/2019 149 ??? Albumin, External 05/21/2019 4.0 ??? Total Alkaline Phosphata* 05/21/2019 77 ??? ALT, External 05/21/2019 25 ??? AST, External 05/21/2019 11 ??? BUN, External 05/21/2019 18 ??? Calcium, External 05/21/2019 8.5 ??? Chloride, External 05/21/2019 107 ??? CO2, External 05/21/2019 31.1 ??? Creatinine, External 05/21/2019 0.62 ??? Potassium, External 05/21/2019 3.9 ??? Sodium, External 05/21/2019 143 ??? Total Protein, External 05/21/2019 7.0 ??? Bilirubin, Total, Wood Preserving Plant Laborer* 05/21/2019 0.4 ??? Cholesterol, External 05/21/2019 204 ??? Triglycerides, External 05/21/2019 106 ??? HDL, External 05/21/2019 40 ??? LDL, External 05/21/2019 143 ??? Hemoglobin A1C, External 05/21/2019 6.5 Lab Requisition on 05/04/2019 Component Date Value ??? Final Diagnosis 05/04/2019 Value:This result contains rich text formatting which cannot be displayed here. ??? Clinical History 05/04/2019 Value:This result contains rich text formatting which cannot be displayed here. ??? Attestation 05/04/2019 Value:This result contains rich text formatting which cannot be displayed here. ??? Gross Description 05/04/2019 Value:This result contains rich text formatting which cannot be displayed here. ??? Resident/Fellow: 05/04/2019 Value:This result contains rich text formatting which cannot be displayed here. Lab Requisition on 03/04/2019 Component Date Value ??? Specimens 03/04/2019 Value:This result contains rich text formatting which cannot be displayed here. ??? Specimen Adequacy 03/04/2019 Satisfactory for Evaluation - transformation zone component present ??? General Categorization 03/04/2019 Negative for intraepithelial lesion or malignancy ??? Descriptive Diagnosis 03/04/2019 Reactive cellular changes associated with inflammation present(includes repair). ??? Attestation 03/04/2019 . By the signature below, the attending physician certifies that they have personally conducted a gross and/or microscopic examination of the described specimens and rendered or confirmed the above diagnosis. ??? Educational Comments 03/04/2019 Value:This result contains rich text formatting which cannot be displayed here. ??? Clinical History 03/04/2019 Value:This result contains rich text formatting which cannot be displayed here. ??? HPV 03/04/2019 Value:This result contains rich text formatting which cannot be displayed here. ??? Human Papillomavirus (HP* 03/04/2019 Negative Diagnosis / Assessment: 1. Undifferentiated connective tissue disease (HCC-CMS): Currently asymptomatic. Newly reported photosensitivity. ALAINA profiles as noted. Specific antibody anticentromere antibody positive. Borderlinepositive ggml-ilrvtx-ruipzabi DNA. Transthoracic echocardiogram with pulmonary pressures in the moderately elevated range 40 to 45 mmHg. Long discussion today regarding the possible implications of her serologic profile and cardiovascular testing. Of note is that she did have pulmonary function tests yet I do not have these to review. I will be having her fax these to my attention. Additionally Iwould like to have her repeat her transthoracic echocardiogram. I think would be a good idea for her to be followed by a labor relations director in case she develops further difficulties with atrial fibrillation and needs further management. I also would recommend high resolution CT scan. I have a low threshold to initiate therapy with hydroxychloroquine. Discussed potential risks and benefits of hydroxychlo roquine. At this time she prefers to monitor her symptoms. I have asked her to contact me with any new signs or symptoms including alopecia, malar rash, mouth sores, increasing sicca symptoms, small joint swelling and increased stiffness, respirophasic pain, fevers. I will be seeing her again in 2 months hopefully in clinic in person Recommendations/Evaluation: This visit was conducted by telephone. I spent a total of 25 minutes in discussion with the patientas described in the progress note. Luke Sandhu MD documented in this encounter Plan of Treatment Upcoming Encounters Date Type Department Care Team (Late st Contact Info) Description 05/20/2024 14:45 EST Office Visit [facility] Adult Primary Care - [address] [address] Jasmyne Poe MD [address] [place] [phone] documented as of this encounter Visit Diagnoses Diagnosis Undifferentiated connective tissue disease (HCC-CMS)- Primary Unspecified diffuse connective tissue disease documented in this encounter Care Teams Medical Operations Supervisor Relationship Specialty Start Date End Date Jasmyne Poe MD [address] [place] [phone] PCP - General 01/07/13 documented as of this encounter
--- OUTSIDE RECORDS SUMMARY | 2023-12-03 02:08 | XMS_ITS | Encounter Summary ---
Author Organization [facility] Address [address] [place] [address] Care Team Providers Care Compressor Operator Name Role Phone Jasmyne Poe MD Primary Care Provider + Reason for Visit * Reason Comments Arrhythmia NPV: arrhythmia, SVT ; It happens mostly at night Palpitations I feel a fullness i n my chest and into my neck area * Consult (Routine) - Specialty Report Received Specialty Diagnoses / Procedures Referred By [facility] Referred To Contact Cardiology Diagnoses SVT (supraventricular tachycardia) ([facility]) Jasmyne Poe MD [address] [place] [phone] [facility] [place] [address] Referral ID Status Reason Start Date Expiration Date Visits Requested Visits Authorized [id number] Specialty Report Received Specialty Services Required 01/09/2018 1 1 Encounter Details Date Type Department Care Team (Late st Contact Info) Description 03/23/2018 10:00 EST Office Visit [facility] Cardiology - [facility] [place] [address] Riley Wolf MD [address] [facility] [address] [place] [address] Paroxysmal atrial fibrillation (HCC-CMS) (Primary [...] Sign Reading Time Taken Comments Blood Pressure 126/70 03/23/2018 1006 EST large cuff Pulse 57 03/23/2018 1006 EST Temperature - - Respiratory Rate 16 03/23/2018 1006 EST Oxygen Saturation 99% 03/23/2018 1006 EST Inhaled Oxygen Concentration - - Weight 95.7 kg (211 lb) 03/23/2018 1006 EST Height 175.3 cm (5' 9.02) 03/23/2018 1006 EST Body Mass Index 31.14 03/23/2018 1006 EST documented in this encounter Functional Status [...] as of this encounter Progress Notes * Adriano Coleman MD - 03/23/2018 1000 EST Subjective: Kirsten Almaguer is a 52 y.o. female who presents for consultation concerning her paroxysmal AF. She began to experience irregular palpitations aproximately 2 months ago with the first episode lasting 6 hours. She presented to the ED at [facility] during her second episode which terminated after diltiazem gtt was started. The patient was discharged on diltiazem and [id number] daily. Her diltiazem has been increased to 120mg daily by her pcp. She has also worn a holter and event monitor which has documented paroxysmal AF with maximum rate of 130. The pAF episodes typically last between 1 and 6 hours. Denies - fever, chills, nausea, vomitting, diarrhea, constipation, light headedness, dizziness, chest pain or discomfort, shortness of breath. Past Medical History: Diagnosis Date ??? Anxiety 2002 on zoloft in the past ??? Gestational diabetes 2001 diet and exercise only ??? Hypertension with episdes of anxiety in the past ??? Obesity ??? Osteoarthritis ??? Palpitations ??? Rotator cuff injury 01/19/2014 Right shoulder Current Outpatient Medications Medication Sig Dispense Refill ??? aspirin 325 mg tablet Take 325 mg by mouth daily. ??? B Complex Vitamins (VITAMIN B COMPLEX) tablet Take 1 Each by mouth daily. ??? cholecalciferol, Vitamin D3, 2,000 unit tablet Take by mouth. ??? DILTiazem (CARDIZEM CD) 240 mg ER capsule Take 1 Cap by mouth daily. 30 Cap 2 ??? ibuprofen (MOTRIN) 200 mg tablet Take 200 mg by mouth as needed. ??? levothyroxine (SYNTHROID) 50 mcg tablet Take 50 mcg by mouth daily. ??? Magnesium 250 mg tablet Take 1 Each by mouth daily. ??? melatonin 3 mg tablet Take by mouth at bedtime. ? ? MULTIVIT &MINERALS/FERROUS FUM (MULTI VITAMIN ORAL) Take by mouth. ??? sertraline (ZOLOFT) 25 mg tablet Take 1 Tab by mouth daily. 90 Tab 1 No current facility-administered medications for this visit. Review of Systems: Pertinent items are noted in Subjective/HPI Objective: BP 126/70 Comment: large cuff Pulse 57 Resp 16 Ht 175.3 cm (69.02) Wt 95.7 kg (211 lb) SpO2 99% BMI 31.14 kg/m?? Body mass index is 31.14 kg/m??. Physical Exam: General appearance: alert, cooperative Lungs: clear to auscultation bilaterally Heart: regular rate and rhythm, S1, S2 normal, no murmur, click, rub or gallop Neurologic: Grossly normal Pulses: 2+ and symmetric Assessment: Kirsten Almaguer is a 52 y.o. year old female who presents for consultation regarding her paroxysmal AF. CHADS2 VASC score is 1 (female). She is currently happy with her treatment with Diltiazem and does not want to pursue more advanced therapies. She will follow up with this clinic at such time that she desires. Greater than 50% of this 40 minute visit was spent in consultation. Plan: - continue current medical regimen. * Riley Wolf MD - 03/23/2018 1000 EST I have seen and examined the patient and agree with the above history and physical exam and assessment and plan. Riley Wolf MD documented in this encounter Plan of Treatment Upcoming Encounters Date Type Department Care Team (Late st Contact Info) Description 05/20/2024 14:45 EST Office Visit [facility] Adult Primary Care - [address] [phone] Jasmyne Poe MD [address] [place] [phone] documented as of this encounter Visit Diagnoses Diagnosis Paroxysmal atrial fibrillation ([facility])- Primary Atrial fibrillation documented in this encounter Historical Medications * This list may reflect changes made after this encounter. Medication Sig Dispensed Refills Start Date End Date aspirin 325 mg tablet Take 325 mg by mouth daily. 05/26/2019 added in this encounter Care Teams Compressor Operator Relationship Specialty Start Date End Date Jasmyne Poe MD [address] [place] [phone] PCP - General 01/07/13 documented as of this encounter
--- OUTSIDE RECORDS SUMMARY | 2023-12-03 02:08 | XMS_ITS | Encounter Summary ---
Author Organization [facility] Address [address] [place] [address] Care Team Providers Care Medical Office Receptionist Assistant Name Role Phone Jasmyne Poe MD Primary Care Provider + Reason for Visit * Reason Onset Date Comments Results 11/25/2019 Encounter Details Date Type Department Care Team (Late st Contact Info) Description 11/25/2019 Orders Only [facility] Adult Primary Care - [address] [address] Jasmyne Poe MD [address] [place] [phone] Social History Tobacco Use Types Packs/Day [...] [facility] - [address] [address] Jasmyne Poe MD [address] [place] [phone] documented as of this encounter Procedures Procedure Name Priority Date/Time Associated Diagnosis Comments HEMOGLOBIN A1C Routine 11/19/2019 7:10 EDT LIPID PROFILE (INCLUDES CHOLESTEROL, TRIGLYCERIDES, HDL, LDL) Routine 11/19/2019 7:10 EDT documented in this encounter Results * HEMOGLOBIN A1C (11/19/2019 7:10 EDT) Hemoglobin A1C, External 5.9 H LAB Est Avg Glucose, External LAB Blood VENOUS BLOOD / Unknown 11/19/2019 7:10 EDT Historical Provider CHEMISTRY & BLOOD GAS ORDERABLES LAB * LIPID PROFILE (INCLUDES CHOLESTEROL, TRIGLYCERIDES, HDL, LDL) (11/19/2019 7:10 EDT) Cholesterol, External 167 LAB Triglycerides, External 95 LAB HDL, External 40 [facility] LDL, External 108 H [facility] Chol/HDL Ratio, External LAB Fasting?, External LAB Blood VENOUS BLOOD / Unknown 11/19/2019 7:10 EDT Historical Provider CHEMISTRY & BLOOD GAS ORDERABLES LAB documented in this encounter Visit Diagnoses Not on filedocumented in this encounter Care Teams Medical Office Receptionist Assistant Relationship Specialty Start Date End Date Jasmyne Poe MD [address] [place] [phone] PCP - General 01/07/13 documented as of this encounter
--- OUTSIDE RECORDS SUMMARY | 2023-12-03 02:08 | XMS_ITS | Encounter Summary ---
Author Organization [facility] Address [address] [place] [address] Care Team Providers Care Cardiac Exercise Physiologist Name Role Phone Jasmyne Poe MD Primary Care Provider + Encounter Details Date Type Department Care Team (Late st Contact Info) Description 06/04/2019 Lab Requisition [facility] Pathology & Laboratory Medicine - [address] [address] Unknown, Provider, Social History Tobacco Use Types Packs/Day Years [...] Info) Description 05/20/2024 14:45 EST Office Visit [facility] Adult Primary Care - [address] [phone] Jasmyne Poe MD [address] [place] [phone] documented as of this encounter Procedures Procedure Name Priority Date/Time Associated Diagnosis Comments HN LAB PATH REVIEW - COAG Today 06/04/2019 11:08 EST LUPUS ANTICOAGULANT CASCADE Routine 06/04/2019 11:08 EST C3 COMPLEMENT Routine 06/04/2019 11:08 EST C4 COMPLEMENT Routine 06/04/2019 11:08 EST documented in this encounter Results * HN LAB DIFF PATH REVIEW - COAG (06/04/2019 11:08 EST) Pathology Review Comment - Coagulation Reviewed by Choco Carmona IV, MD 06/07/2019 17:17 EST [facility] Blood VENOUS BLOOD / Unknown 06/04/2019 11:08 EST 06/07/2019 8:05 EST Provider Unknown HEMATOLOGY & PF4 ORD ERABLES [facility] [address] [place] [address] * LUPUS ANTICOAGULANT CASCADE (06/04/2019 11:08 EST) LA Newell Summary Negative for detection of lupus anticoagulant (LA). ??Where clinical suspicion for antiphospholipid syndrome is high, it may be appropriate ??to perform alternative LA or aPL assays. ?? The laboratory criteria for Antiphospholipid Syndrome (aPL) include positive testing for one of the following on 2 or more occasions, at least 12 weeks apart: 1. Lupus anticoagulant (LA), 2. Cardiolipin antibodies (IgG or IgM) in medium or high titer, 3. Beta2-glycoprotein 1 antibodies (IgG or IgM) in medium or terrance titer. Solid-phase assays for Beta2 glycoprotein 1 (B2GP1) and Cardiolipin antibodies are recommended when evaluating a patient for antiphospholipid syndrome. ??Correlation with those results is advised. Choco Carmona IV, MD 06/07/2019 17:17 [facility] Comment:Lupus Anticoagulant not detected Dilute Viper Venom 35.9 27.2 - 36.9 secs 06/07/2019 17:17 [facility] Silica Clotting Time 46.1 30.2 - 48.4 secs 06/07/2019 17:17 [facility] Blood VENOUS BLOOD / Unknown 06/04/2019 11:08 EST 06/07/2019 8:05 EST Provider Unknown HEMATOLOGY & PF4 ORD ERABLES Performing Organization Address [facility] Co de Phone Number [facility] [address] [place] [address] * C4 COMPLEMENT (06/04/2019 11:08 EST) C4 Complement 28 13 - 39 mg/dL 06/07/2019 12:24 EST [facility] Blood VENOUS BLOOD / Unknown 06/04/2019 11:08 EST 06/04/2019 20:46 EST Provider Unknown CHEMISTRY & BLOOD GA S ORDERABLES Performing Organization Address [facility] Co de Phone Number [facility] [address] [place] [address] * C3 COMPLEMENT (06/04/2019 11:08 EST) C3 Complement 128 81 - 157 mg/dL 06/07/2019 12:24 EST [facility] Blood VENOUS BLOOD / Unknown 06/04/2019 11:08 EST 06/04/2019 20:46 EST Provider Unknown CHEMISTRY & BLOOD GA S ORDERABLES Performing Organization Address [facility] Co de Phone Number [facility] [address] [place] [address] documented in this encounter Visit Diagnoses Not on filedocumented in this encounter Additional Health Concerns Infection Onset Date Last Indicated Resolved Time R/O COVID-19 10/16/2020 10/16/2020 10/16/2020 5:30 EDT documented as of this encounter Care Teams Cardiac Exercise Physiologist Relationship Specialty Start Date End Date Jasmyne Poe MD [address] [place] [phone] PCP - General 01/07/13 documented as of this encounter
--- OUTSIDE RECORDS SUMMARY | 2023-12-03 02:08 | XMS_ITS | Encounter Summary ---
Author Organization [facility] Address [address] [place] [address] Care Team Providers Care Show Jumping Instructor Name Role Phone Jasmyne Poe MD Primary Care Provider + Reason for Visit * Reason Onset Date Comments Medications Refill 12/07/2019 Encounter Details Date Type Department Care Team (Late st Contact Info) Description 12/07/2019 Refill [facility] Adult Primary Care - [address] [address] Jasmyne Poe MD [address] [place] [phone] Medications Refill Social History Tobacco Use [...] 1 Cap by mouth daily. 30 Cap 5 12/07/2019 05/01/2020 documented in this encounter Miscellaneous Notes * Telephone Encounter - Meeta Garcia - 12/07/2019 1641 EDT Requested Prescriptions Pending Prescriptions Disp Refills ??? DILTiazem (CARDIZEM CD) 240 mg ER capsule 30 Cap 5 Sig: Take 1 Cap by mouth daily. Pharmacy: [facility] Last Refill Date: 06/16/19 Last Visit Date: 11/24/19 Next Non-Acute Visit Date Scheduled with Care Team: Yes. 05/31/2020 MEETA GARCIA RN 12/07/2019 16:41 * Telephone Encounter - Meeta Garcia - 12/07/2019 1641 EDTFrom: Kirsten Almaguer To: Office of Jasmyne Poe MD Sent: 12/07/2019 13:06 EDT Subject: Medication Renewal Request Refills have been requested for the following medications: DILTiazem (CARDIZEM CD) 240 mg ER capsule [Jasmyne Poe MD] Preferred pharmacy: [address] documented in this encounter Plan of Treatment Upcoming Encounters Date Type Department Care Team (Late st Contact Info) Description 05/20/2024 14:45 EST Office Visit [facility] Adult Primary Care - [place] [address] [place], [place] [phone] Jasmyne Poe MD [address] [place] [phone] documented as of this encounter Visit Diagnoses Not on filedocumented in this encounter Discontinued Medications Medication Sig Discontinue Reason Start Date End Da te DILTiazem (CARDIZEM CD) 240 mg ER capsule Take 1 Cap by mouth daily. Reorder 06/16/2019 12/07/2019 documented as of this encounter Care Teams Show Jumping Instructor Relationship Specialty Start Date End Date Jasmyne Poe MD [address] [place] [phone] PCP - General 01/07/13 documented as of this encounter
--- OUTSIDE RECORDS SUMMARY | 2023-12-03 02:08 | XMS_ITS | Encounter Summary ---
Author Organization [facility] Address [address] [place] [address] Care Team Providers Care Repair Tech Name Role Phone Jasmyne Poe MD Primary Care Provider + Reason for Visit * Reason Comments Foot Pain Right Foot/Cut heal on a metal door/Swollen and Red Encounter Details Date Type Department Care Team (Late st Contact Info) Description 10/06/2018 16:30 EDT Office Visit [facility] Adult Primary Care - [address] [address] Sweetie Fajardo PA-C [address] [place] [phone] Cellulitis of foot, right (Primary Dx); Bursitis of posterior heel, right Social History Tobacco Use Types Packs/Day Years [...] Sign Reading Time Taken Comments Blood Pressure 148/80 10/06/2018 1644 EDT Pulse 63 10/06/2018 1644 EDT Temperature 36.7 ??C (98.1 ??F) 10/06/2018 1644 EDT Respiratory Rate 14 10/06/2018 1644 EDT Oxygen Saturation - - Inhaled Oxygen Concentration - - Weight 95.3 kg (210 lb) 10/06/2018 1644 EDT Height - - Body Mass Index [...] this encounter Patient Instructions * Patient Instructions* Sweetie Fajardo Pa-C - 10/06/2018 16:30 EDT Call if no improvement in 48 hours documented in this encounter Ordered Prescriptions Prescription Sig Dispensed Refills Start Date End Da te clindamycin (CLEOCIN) 300 mg capsule Take 1 Cap by mouth 3 times daily for 7 days. 21 Cap 10/06/2018 10/09/2018 doxycycline (VIBRA-TABS) 100 mg tablet Take 1 Tab by mouth 2 times daily. 14 Tab 10/06/2018 10/06/2018 documented in this encounter Progress Notes * Sweetie Fajardo Pa-C - 10/06/2018 1630 EDT Images from the original note were not included. Patient ID: Kirsten Almaguer is a 53 y.o. female Chief Complaint: Foot Pain (Right Foot/Cut heal on a metal door/Swollen and Red ) History of present Illness (HPI): Kirsten is a 53 y.o. patient of Jasmyne Poe with a past medical history that includes hypothyroidism and PAF presenting for evaluation of right heel swelling and pain. She hit her posterior heel on the edge of a screen door 2 weeks ago and had a shallow abrasion. After several days it started having in creased redness, pain and swelling encompassing the entire heel. 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 She states the symptoms started to improve within 48 hours of starting the antibiotic and was resolved by Friday. 3 days ago developed recurrent symptoms, with increasing pain, erythema, swelling of the posterior heel in the same location. She has significant pain with walking and has been walking on her toes. She denies fevers, chills, redness going up her leg. She has not had purulent drainage. She is up to date on her tetanus vaccine. Patient Active Problem List Diagnosis ??? Osteoarthritis ??? Allergy to penicillin ??? Anxiety ??? Acquired hypothyroidism ??? PAF (paroxysmal atrial fibrillation) ([place]) ??? Obesity, Class I, BMI 30-34.9 Current Outpatient Medications: aspirin 325 mg tablet Take 325 mg by mouth daily. B Complex Vitamins (VITAMIN B COMPLEX) tablet Take 1 Each by mouth daily. cholecalciferol, Vitamin D3, 2,000 unit tablet Take by mouth. clindamycin (CLEOCIN) 300 mg capsule Take 1 Cap by mouth 3 times daily for 7 days. DILTiazem (CARDIZEM CD) 240 mg ER capsule Take 1 Cap by mouth daily. ibuprofen (MOTRIN) 200 mg tablet Take [...] suspension Instructions mailed once procedure scheduled. Questions: [facility] Gastro[facility]ology: [phone] or GI Doctor's Office. (Patient not taking: Reported on 10/06/2018) sertraline (ZOLOFT) 25 mg tablet Take 1 Tab by mouth daily. (Patient not taking: Reported on 10/06/2018) Allergies Allergen Reactions ??? Penicillins Anaphylaxis ??? Sulfa (Sulfonamide Antibiotics) Rash Review of Systems: Pertinent positives and negatives noted in HPI. Objective: Physical Examination: BP (!) 148/80 Pulse 63 Temp 36.7 ??C (98.1 ??F) (Tympanic) Resp 14 Wt 95.3 kg (210 lb) BMI 31.01 kg/m?? Musculoskeletal: Feet: Right posterior heel healing superficial abrasion with underlying bogginess, mild swelling, and surrounding light erythema. Pitting edema present superiorly. Full ROM of ankle Assessment & Plan: Recurrent inflammation of posterior heel after trauma with increased erythema, swelling and pain concerning for recurrent cellulitis. She may have a component of traumatic heel bursitis as well, question of mild septic bursitis. Will treat empirically with clindamycin for broader spectrum coverage,patient to call if not responding within 48 hours, will need ID consult at that point. Advised taking probiotic. Supportive care including leg elevation, Advil regularly, and icing recommended. Kirsten was seen today for foot pain. Diagnoses and all orders for this visit: Cellulitis of foot, right Bursitis of posterior heel, right Other orders - Discontinue: doxycycline (VIBRA-TABS) 100 mg tablet; Take 1 Tab by mouth 2 times daily. - clindamycin (CLEOCIN) 300 mg capsule; Take 1 Cap by mouth 3 times daily for 7 days. Pt Ed: - Call if no improvement in 48 hours Portions of this document may have been prepared with speech recognition software or keyboard manager data warehousing techniques. Minor irregularities or keyboarding misprints may be present. documented in this encounter Plan of Treatment Upcoming Encounters Date Type Department Care Team (Late st Contact Info) Description 05/20/2024 14:45 EST Office Visit [facility] Adult Primary Care - [address] [phone] Jasmyne Poe MD [address] [place] [phone] documented as of this encounter Visit Diagnoses Diagnosis Cellulitis of foot, right- Primary Cellulitis and abscess of foot, except toes Bursitis of posterior heel, right documented in this encounter Discontinued Medications Medication Sig Discontinue Reason Start Date End Da te doxycycline (VIBRA-TABS) 100 mg tablet Take 1 Tab by mouth 2 times daily. 10/06/2018 10/06/2018 documented as of this encounter Care Teams Repair Tech Relationship Specialty Start Date End Date Jasmyne Poe MD [address] [place] [phone] PCP - General 01/07/13 documented as of this encounter
--- OUTSIDE RECORDS SUMMARY | 2023-12-03 02:08 | XMS_ITS | Encounter Summary ---
Author Organization [facility] Address [address] [place] [address] Care Team Providers Care Bundler Seasonal Greenery Name Role Phone Jasmyne Poe MD Primary Care Provider + Reason for Visit * Reason Onset Date Comments Medications Refill 09/17/2019 Encounter Details Date Type Department Care Team (Late st Contact Info) Description 09/17/2019 Refill [facility] Adult Primary Care - [address] [address] Jasmyne Poe MD [address] [place] [phone] Medications Refill Social History Tobacco Use [...] Tab by mouth daily. 90 Tab 1 09/17/2019 05/01/2020 documented in this encounter Miscellaneous Notes * Telephone Encounter - Lani Johns RN - 09/17/2019 [id number] EDT Requested Prescriptions Pending Prescriptions Disp Refills ??? levothyroxine (SYNTHROID) 50 mcg tablet 90 Tab 1 Sig: Take 1 Tab by mouth daily. ??? DILTiazem (CARDIZEM CD) 240 mg ER capsule 30 Cap 5 Sig: Take 1 Cap by mouth daily. Preferred Pharmacy: [facility] Last Refill Date: 01/20/19 and 06/16/19 Last Visit Date with Provider: 05/26/19 Next Non-Acute Visit Date Scheduled with Care Team: Yes. LANI JOHNS RN 09/17/2019 13:15 * Telephone Encounter - Lani Johns RN - 09/17/2019 [id number] EDTFrom: Kirsten Almaguer Sent: 09/17/2019 12:34 EDT Subject: Medication Renewal Request Kirsten Almaguer would like a refill of the following medications: levothyroxine (SYNTHROID) 50 mcg tablet [Jasmyne Poe MD] DILTiazem (CARDIZEM CD) 240 mg ER capsule [Jasmyne Poe MD] Preferred pharmacy: [address] documented in this encounter Plan of Treatment Upcoming Encounters Date Type Department Care Team (Late st Contact Info) Description 05/20/2024 14:45 EST Office Visit [facility] Adult Primary Care - [place] [address] [place] [address] Jasmyne Poe MD [address] [place] [phone] documented as of this encounter Visit Diagnoses Not on filedocumented in this encounter Discontinued Medications Medication Sig Discontinue Reason Start Date End Da te levothyroxine (SYNTHROID) 50 mcg tablet Take 1 Tab by mouth daily. Reorder 01/20/2019 09/17/2019 documented as of this encounter Care Teams Bundler Seasonal Greenery Relationship Specialty Start Date End Date Jasmyne Poe MD [address] [place] [phone] PCP - General 01/07/13 documented as of this encounter
--- OUTSIDE RECORDS SUMMARY | 2023-12-03 02:08 | XMS_ITS | Encounter Summary ---
Author Organization [facility] Address [address] [place] [address] Care Team Providers Care Customer Accounts Advisor Name Role Phone Jasmyne Poe MD Primary Care Provider + Reason for Visit * Reason Onset Date Comments Medications Refill 06/15/2019 Encounter Details Date Type Department Care Team (Late st Contact Info) Description 06/15/2019 Refill [facility] Adult Primary Care - [address] [address] Jasmyne Poe MD [address] [place] [phone] Medications Refill Social History Tobacco Use [...] Cap by mouth daily. 30 Cap 5 06/16/2019 12/07/2019 documented in this encounter Miscellaneous Notes * Telephone Encounter - Lani Johns RN - 06/16/2019 1030 EST Medication(s) Requested: Cardizem Preferred Pharmacy: [facility] Is patient out of medication? Unknown Last Refill Date: 05/04/19 Last Visit Date with Ordering Provider: 05/26/19 Next Non-Acute Visit Date Scheduled with Care Team: Yes. LANI JOHNS RN 06/16/2019 10:30 * Telephone Encounter - Lani Johns RN - 06/16/2019 1030 ESTFrom: Kirsten Almaguer Sent: 06/15/2019 18:44 EST Subject: Medication Renewal Request Kirsten Almaguer would like a refill of the following medications: DILTiazem (CARDIZEM CD) 240 mg ER capsule [Jasmyne Poe MD] Preferred pharmacy: [address] documented in this encounter Plan of Treatment Upcoming Encounters Date Type Department Care Team (Late st Contact Info) Description 05/20/2024 14:45 EST Office Visit [facility] Adult Primary Care - [address] [address] Jasmyne Poe MD [address] [place] [phone] documented as of this encounter Visit Diagnoses Not on filedocumented in this encounter Discontinued Medications Medication Sig Discontinue Reason Start Date End Da te DILTiazem (CARDIZEM CD) 240 mg ER capsule Take 1 Cap by mouth daily. Reorder 05/04/2019 06/15/2019 documented as of this encounter Care Teams Customer Accounts Advisor Relationship Specialty Start Date End Date Jasmyne Poe MD [address] [place] [phone] PCP - General 01/07/13 documented as of this encounter
--- OUTSIDE RECORDS SUMMARY | 2023-12-03 02:08 | XMS_ITS | Encounter Summary ---
Author Organization [facility] Address [address] [place] [address] Care Team Providers Care Envelope Stuffer Name Role Phone Jasmyne Poe MD Primary Care Provider + Reason for Visit * Reason Onset Date Comments Orders (Non Pre-visit) 05/25/2018 Encounter Details Date Type Department Care Team (Late st Contact Info) Description 05/25/2018 Telephone [facility] Adult Primary Care - [address] [address] Jasmyne Poe MD [address] [place] [phone] Orders (Non Pre-visit) Social History Tobacco Use Types Packs/Day Years [...] encounter Miscellaneous Notes * Telephone Encounter - Luna Earl - 05/25/2018 1612 EST Pharmacist aware * Telephone Encounter - Jasmyne Poe MD - 05/25/2018 1604 EST That's fine * Telephone Encounter - Luna Earl - 05/25/2018 1601 EST Pharmacy is not able to get golytely but they do have nulytely Is this ok>? documented in this encounter Plan of Treatment Upcoming Encounters Date Type Department Care Team (Late st Contact Info) Description 05/20/2024 14:45 EST Office Visit [facility] Adult Primary Care - [address] [phone] Jasmyne Poe MD [address] [place] [phone] documented as of this encounter Visit Diagnoses Not on filedocumented in this encounter Care Teams Envelope Stuffer Relationship Specialty Start Date End Date Jasmyne Poe MD [address] [place] [phone] PCP - General 01/07/13 documented as of this encounter
--- OUTSIDE RECORDS SUMMARY | 2023-12-03 02:08 | XMS_ITS | Encounter Summary ---
Author Organization [facility] Address [address] [place] [address] Care Team Providers Care Child Care Team Lead Name Role Phone Jasmyne Poe MD Primary Care Provider + Encounter Details Date Type Department Care Team (Late st Contact Info) Description 05/05/2019 Lab Requisition [facility] Pathology & Laboratory Medicine - [facility] [address] [place], [place] [id number] [phone] Jasmyne Camarena MD [address] [place] [id number] Encounter for other general examination Social History [...] 14:45 EST Office Visit [facility] Adult Primary Care - [place] [address] [place], [place] [phone] Jasmyne Poe MD [address] [place] [phone] documented as of this encounter Procedures Procedure Name Priority Date/Time Associated Diagnosis Comments SURGICAL PATHOLOGY Today 05/04/2019 16 :00 EST Encounter for other general examination documented in this encounter Results * SURGICAL PATHOLOGY (05/04/2019 16:00 EST) Final Diagnosis A. ENDOMETRIUM, BIOPSY: - Inactive endometrium with stromal breakdown and tubal metaplasia. - Fragments with features suggestive of benign endometrial polyp. 05/11/2019 16:27 [facility] at 1627 Clinical History Abnormal uterine bleeding. 05/11/2019 16:27 [facility] Attestation There was significant resident/fellow involvement in the diagnostic evaluation of this case. By the signature below, the attending physician certifies that they have personally conducted a gross and/or microscopic examination of the described specimens and rendered or confirmed the above diagnosis. 05/11/2019 16:27 [facility] at 1627 Gross Description A. Received in formalin labelled with proper patient identification (initials P, S) and endometrium is an aggregate of barker tissue admixed with clear and dark brown viscous material (2.1 x 1.7 x 0.2 cm). Entirely submitted in A1 and A2. MIHRAB ALI 05/05/2019 11:08 05/11/2019 16:27 [facility] Resident/Jaziel w: Fuentes Mondragon DO 05/11/2019 16:27 [facility] Scanned Images 05/11/2019 16:27 [facility] Tissue ENTIRE ENDOMETRIUM / Unknown 05/04/2019 16:00 EST 05/05/2019 9:09 EST Jasmyne Camarena MD PATHOLOGY ORDERABLES [facility] [address] [place] [address] documented in this encounter Visit Diagnoses Diagnosis Encounter for other general examination documented in this encounter Additional Health Concerns Infection Onset Date Last Indicated Resolved Time R/O COVID-19 10/16/2020 10/16/2020 10/16/2020 5:30 EDT documented as of this encounter Care Teams Child Care Team Lead Relationship Specialty Start Date End Date Jasmyne Poe MD [address] [place] [phone] PCP - General 01/07/13 documented as of this encounter
--- OUTSIDE RECORDS SUMMARY | 2023-12-03 02:08 | XMS_ITS | Encounter Summary ---
Author Organization [facility] Address [address] [place] [address] Care Team Providers Care Pot Press Operator Name Role Phone Jasmyne Poe MD Primary Care Provider + Reason for Visit * Reason Onset Date Comments Other 06/11/2019 Encounter Details Date Type Department Care Team (Late st Contact Info) Description 06/11/2019 Telephone [facility] Rheumatology [address] [place], [place] [phone] Luke Sandhu MD [facility] Rheumatology [address] [place] [address] [place] [phone] Other Social History Tobacco Use Types Packs/Day [...] encounter Miscellaneous Notes * Telephone Encounter - Soco Escobedo RN - 06/11/2019 1431 EST None noted. Patient updated. * Telephone Encounter - Genesis Hodges - 06/11/[address] Sandhu want to order any labs for the 07/12 visit? [phone] documented in this encounter Plan of Treatment Upcoming Encounters Date Type Department Care Team (Late st Contact Info) Description 05/20/2024 14:45 EST Office Visit [facility] Adult Primary Care - [address] [phone] Jasmyne Poe MD [address] [place] [phone] documented as of this encounter Visit Diagnoses Not on filedocumented in this encounter Care Teams Pot Press Operator Relationship Specialty Start Date End Date Jasmyne Poe MD [address] [place] [phone] PCP - General 01/07/13 documented as of this encounter
--- OUTSIDE RECORDS SUMMARY | 2023-12-03 02:08 | XMS_ITS | Encounter Summary ---
Author Organization [facility] Address [address] [place] [address] Care Team Providers Care Hat Steamer Name Role Phone Jasmyne Poe MD Primary Care Provider + Reason for Referral * Referral (Routine) - Closed Specialty Diagnoses / Procedures Referred By Contact Referred To Contact Gastroenterology and Hepatology Diagnoses Screening for colon cancer Procedures COLONOSCOPY REQUEST Jasmyne Poe MD [address] [place] [phone] [facility] [address] [place] [address] Referral ID Status Reason Start Date Expiration Date Visits Re quested Visits Authorized [id number] Closed 05/25/2018 1 1 Reason for Visit * Reason Comments Annual Exam Obesity Encounter Details Date Type Department Care Team (Late st Contact Info) Description 05/25/2018 10:45 EST Office Visit [facility] Adult Primary Care - [place] [address] [place] [address] Jasmyne Poe MD [address] [place] [phone] Need for Tdap vaccination (Primary Dx); Encounter for preventive health examination; Depression screen; Obesity (BMI 30-39.9); Acquired hypothyroidism; PAF (paroxysmal atrial fibrillation) ([facility]); Screening for colon cancer; Borderline hyperlipidemia; Anxiety Social History Tobacco Use Types Packs/Day [...] Sign Reading Time Taken Comments Blood Pressure 152/76 05/25/2018 1055 EST Pulse 64 05/25/2018 1055 EST Temperature 37.2 ??C (98.9 ??F) 05/25/2018 1055 EST Respiratory Rate 16 05/25/2018 1055 EST Oxygen Saturation - - Inhaled Oxygen Concentration - - Weight 98.4 kg (217 lb) 05/25/2018 1055 EST Height 175.3 cm (5' 9) 05/25/2018 1055 EST Body Mass Index 32.05 05/25/2018 1055 EST documented in this encounter [...] * Patient Instructions* Jasmyne Poe MD - 05/25/2018 10:45 EST Schedule an appointment for a mammogram Please contact the gastroenterology department to schedule your appointment at [phone], option#2. Fasting blood work in two months for lipids Start exercise again Call if you want an increase in the sertraline dose documented in this encounter Ordered Prescriptions Prescription Sig Dispensed Refills Start Date End Da te polyethylene glycol (GOLYTELY;NULYTELY) 236-22.74-6.74 -5.86 gram suspension Instructions mailed once procedure scheduled. Questions: [facility] Gastroenterology: [phone] or GI Doctor's Office. 4000 mL 05/25/2018 11/21/2018 sertraline (ZOLOFT) 25 mg tablet Take 1 Tab by mouth daily. 90 Tab 3 05/25/2018 12/10/2018 DILTiazem (CARDIZEM CD) 240 mg ER capsule Take 1 Cap by mouth daily. 90 Cap 3 05/25/2018 05/04/2019 documented in this encounter Progress Notes * Jasmyne Poe MD - 05/25/2018 1045 EST Female Well Adult Preventative Care Visit Patient ID: Kirsten Almaguer is an 53 y.o. female. Subjective: HISTORY OF PRESENT ILLNESS: Here for a wellness visit. Patient profile: she is with three children. 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 She does not smoke or drink alcohol. She plans to start working out soon with a parent trainer and on her stationary bike. She was seen by Cardiology for PAF. Echo showed mild LVH and mildly to moderately increased pulmonary systolic pressure. . She has been taking diltiazem. She's had only one episode of palpitations since she was here last and has noticed a correlation with her menstrual periods. Her periods are now i rregular and not coming every month any more. Sleep study ordered but she hasn't scheduled this yet. She has symptoms of both anxiety and depression. She isn't sure if she needs to increase her sertraline prescription but would like to treat the mood problem with exercise and increased sunlight exposure first. Patient Active Problem List Diagnosis ??? Osteoarthritis ??? Allergy to penicillin ??? Anxiety ??? Acquired hypothyroidism ??? PAF (paroxysmal atrial fibrillation) ([facility]) ??? Obesity, Class I, BMI 30-34.9 Past Medical History: Diagnosis Date ??? Anxiety 2003 on zoloft in the past ??? Gestational diabetes 2001 diet and exercise only ??? Hypertension with episdes of anxiety in the past ??? Obesity ??? Osteoarthritis ??? Palpitations ??? Rotator cuff injury 01/19/2014 Right shoulder Past Surgical History: Procedure Laterality Date ??? SECTION 1985 ??? KNEE ARTHROSCOPY 2003 right knee Social History Tobacco Use ??? Smoking status: Never Smoker ??? Smokeless tobacco: Never Used Substance Use Topics ??? Alcohol use: No ??? Drug use: No Family History Problem Relation Age of Onset ??? Lung Cancer Mother 63 ??? Alcohol Abuse Father cause of @ 58yo ??? No Known Brother ??? Diabetes Maternal Grandmother ??? Hypertension Maternal Grandmother ??? Diabetes Maternal Uncle ??? Heart Disease Maternal Grandfather ??? Lymphoma Maternal Grandfather Hodgkin's lymphoma ??? Heart Surgery Other 50 grandmother ??? Heart Attack Other 60 grandfather- CT ??? Leukemia Son AML Allergies Allergen Reactions ??? Penicillins Anaphylaxis ??? Sulfa (Sulfonamide Antibiotics) Rash Current Outpatient Medications: aspirin 325 mg tablet B Complex Vitamins (VITAMIN B COMPLEX) tablet cholecalciferol, Vitamin D3, 2,000 unit tablet DILTiazem (CARDIZEM CD) 240 mg ER capsule ibuprofen (MOTRIN) 200 mg tablet levothyroxine (SYNTHROID) 50 mcg tablet Magnesium 250 mg tablet melatonin 3 mg tablet MULTIVIT &MINERALS/FERROUS FUM (MULTI VITAMIN ORAL) sertraline (ZOLOFT) 25 mg tablet No current facility-administered medications for this visit. Review of Systems Constitutional: Negative for diaphoresis and fever. Respiratory: Negative for cough and shortness of breath. Cardiovascular: Positive for palpitations (only one epsiode of palpitations since last appointment). Negative for chest pain. Gastrointestinal: Positive for heartburn (sometimes). Negative for blood in stool, constipation, diarrhea, melena and nausea. Genitourinary: Negative for dysuria and hematuria. Musculoskeletal: Positive for joint pain (chronic left knee pain). Neurological: Negative for dizziness and headaches. Objective: BP (!) 152/76 Pulse 64 Temp 37.2 ??C (98.9 ??F) (Tympanic) Resp 16 Ht 175.3 cm (69) Wt 98.4 kg (217 lb) BMI 32.05 kg/m?? Body mass index is 32.05 kg/m??. Physical Exam Wt Readings from Last 3 Encounters: 05/25/18 98.4 kg (217 lb) 03/23/18 95.7 kg (211 lb) 02/13/18 94.3 kg (208 lb) General: well-developed, well-nourished woman HEENT: oral mucosa and pharynx are normal and without lesions. Tympanic membranes are visualized with a good light reflex. Sclerae are clear and non-icteric. Neck: no lymphadenopathy or thyromegaly Breasts: exam deferred. Lungs: clear in all lung negrete Cardiac: regular without murmur or gallop Abdomen: soft, non-tender, no masses. No hepatomegaly. No abdominal bruit. : up to date with PAP. Extremities: no cyanosis or edema Skin: no rashes. Multiple nevi. Labs were done at [facility] in [place] LDL 136 HDL 43 triglycerides 93 Assessment: 53 year old woman here for a wellness visit. She will be due for a Tdap booster this year so this was was given today. Immunization History Administered Date(s) Administered ??? Historical Influenza Vaccine, Unspecified 02/16/2018 ??? MMR Vaccine SQ 01/03/2009 ??? PPD Skin Test Placement 12/20/2008, 01/03/2009 ? ? Tdap Vaccine =>7YO IM 12/20/2008 Breast cancer screening: she has never had a mammogram and was encouraged again to schedule this. She will schedule this at [facility]. Cervical cancer screening: she had an ASGUS with negative HPV in 2015. She says she had a PAP last April and will forward me the results. She believes this was normal Colon cancer screening: she is still due for a colonoscopy and agrees to another referral. Osteoporosis screening/prevention: she is taking a vitamin D supplement and vitamin D level was normal last year. Fasting lipids show a very mild hyperlipidemia and she would like to repeat this in a few months after increasing exercise. Exercise : soon to start Given Advanced Directives paperwork. Other problems addressed this visit: 1. Hypothyroidism: last TSH was normal in February. 2. Mixed anxiety and depression: continue sertraline at current dose but she will if call if she decides she would benefit from an increased dose in the coming year. 3. Hypertension: she has hypertension, probably an element of white coat hypertension as well. BP here is slightly elevated on the diltiazem but she records blood pressure at home and the readings are near normal (130/80 or less). 4. PAF: evaluated by Cardiology on 03/23. CHADS-2 score is 1 so anti-coagulation not indicated. Herelevated pulmonary pressure on echo was not addressed in the notes. 5. Elevated pulmonary pressure: had normal PFT's and she will consider a sleep study but no historyof apnea according to her . We could repeat echo in one year to make sure there is no change. 6. Class I obesity: she is going to work on exercise. Plan: As above Follow-up in one year or as needed. Kirsten was seen today for annual exam and obesity. Diagnoses and all orders for this visit: Need for Tdap vaccination - TDAP VACCINE =>7YO IM Other orders - DILTiazem (CARDIZEM CD) 240 mg ER capsule; Take 1 Cap by mouth daily. - sertraline (ZOLOFT) 25 mg tablet; Take 1 Tab by mouth daily. References: USPTF Level A & B Recommendations List USPTF Adult Recommendations USPTF Breast Cancer Screening USPTF Cervical Cancer Screening USPTF Colorectal Cancer Screening CDC Adult Immunizations 2010 CDC 7-18 Years Immunizations 2010 AAFP Clinical Recommendations documented in this encounter Plan of Treatment Upcoming Encounters Date Type Department Care Team (Late st Contact Info) Description 05/20/2024 14:45 EST Office Visit [facility] Adult Primary Care - [address] [address] Jasmyne Poe MD [address] [place] [phone] Scheduled Orders Name Type Priority Associated Diagnoses Orde r Schedule COLONOSCOPY REQUEST GI Routine Screening for colon cancer Ordered: 05/25/2018 documented as of this encounter Visit Diagnoses Diagnosis Need for Tdap vaccination- Primary Need for prophylactic vaccination with combined pjriijjsbi-mkimiol-eiedfescq (DTP) vaccine Encounter for preventive health examination Routine general medical examination at a health care facility Depression screen Screening for depression Obesity (BMI 30-39.9) Obesity, unspecified Acquired hypothyroidism Unspecified hypothyroidism PAF (paroxysmal atrial fibrillation) ([facility]) Atrial fibrillation Screening for colon cancer Special screening for malignant neoplasms, colon Borderline hyperlipidemia Other and unspecified hyperlipidemia Anxiety Anxiety state, unspecified documented in this encounter Discontinued Medications Medication Sig Discontinue Reason Start Date End Da te DILTiazem (CARDIZEM CD) 240 mg ER capsule Take 1 Cap by mouth daily. Reorder 02/25/2018 05/25/2018 sertraline (ZOLOFT) 25 mg tablet Take 1 Tab by mouth daily. Reorder 10/08/2017 05/25/2018 documented as of this encounter Orders Immunization/Injection Count Last Ordered Date First Ordered Date TDAP VACCINE =>7YO IM 1 05/25/2018 documented in this encounter Care Teams Hat Steamer Relationship Specialty Start Date End Date Jasmyne Poe MD [address] [place] [phone] PCP - General 01/07/13 documented as of this encounter
--- OUTSIDE RECORDS SUMMARY | 2023-12-03 02:08 | XMS_ITS | Encounter Summary ---
Author Organization [facility] Address [address] [place] [address] Care Team Providers Care Nuclear Reactor Operator Name Role Phone Jasmyne Poe MD Primary Care Provider + Reason for Visit * Reason Comments Annual Exam no questions or conc erns Encounter Details Date Type Department Care Team (Late st Contact Info) Description 05/26/2019 15:45 EST Office Visit [facility] Adult Primary Care - [address] [address] Jasmyne Poe MD [address] [place] [phone] Encounter for preventive health examination (Primary Dx); Depression screen; Acquired hypothyroidism; Screening for colon cancer; Borderline diabetes mellitus; Anxiety; Obesity, Class I, BMI 30-34.9 Social History Tobacco Use Types Packs/Day Years [...] Sign Reading Time Taken Comments Blood Pressure 132/82 05/26/2019 1546 EST Pulse 64 05/26/2019 1546 EST Temperature 36.4 ??C (97.6 ??F) 05/26/2019 1546 EST Respiratory Rate 16 05/26/2019 1546 EST Oxygen Saturation - - Inhaled Oxygen Concentration - - Weight 93.1 kg (205 lb 3.2 oz) 05/26/[address] Height 174 cm (5' 8.5) 05/26/2019 1546 EST Body Mass Index 30.74 05/26/2019 1546 EST documented in this encounter Functional Status [...] this encounter Patient Instructions * Patient Instructions* Jamsyne Poe MD - 05/26/2019 15:45 EST Mammogram Referral for colonoscopy Please contact the gastroenterology department to schedule your colonoscopy appointment at [phone], option #2. Start sertraline 25 mg daily. documented in this encounter Ordered Prescriptions Prescription Sig Dispensed Refills Start Date End Da te polyethylene glycol (GOLYTELY;NULYTELY) 236-22.74-6.74 -5.86 gram suspension Instructions mailed once procedure scheduled. Questions: [facility] Gastroenterology: [phone] or GI Doctor's Office. 4000 mL 05/26/2019 11/22/2019 sertraline (ZOLOFT) 25 mg tablet Take 1 Tab by mouth daily. 90 Tab 1 05/26/2019 10/04/2019 documented in this encounter Progress Notes * Jasmyne Poe MD - 05/26/2019 1543 EST Female Well Adult Preventative Care Visit Patient ID: Kirsten Almaguer is an 54 y.o. female. Subjective: HISTORY OF PRESENT ILLNESS: Here for a wellness visit. Patient profile: she is with three children. 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. ??She does not smoke or drink alcohol. ??She exercises almost daily on the recumbent bike, rowing, and walking on the treadmill. She has been following with her specialty development consultant in [facility] for dysfunctional uterine bleeding. She had a transvaginal ultrasound and an endometrial biopsy which were both normal. She has having significant anxiety due to stress caused by her youngest son. He is a survivor of AML as a small child and as a teenager is having issues with anxiety himself. He has been using marijuana regularly to manage his anxiety and his tends to take out negative emotions on her. He sees a information clerk brokerage and she is going to start seeing one on her own. She has an upcoming appointment with Rheumatology at [facility] for joint pains and positive ALAINA. Patient Active Problem List Diagnosis ??? Osteoarthritis ??? Allergy to penicillin ??? Anxiety ??? Acquired hypothyroidism ??? PAF (paroxysmal atrial fibrillation) ([facility]) ??? Obesity, Class I, BMI 30-34.9 ??? Prediabetes Past Medical History: Diagnosis Date ??? Anxiety 2003 on zoloft in the past ??? Gestational diabetes 2002 diet and exercise only ??? Hypertension with episdes of anxiety in the past ??? Obesity ??? Osteoarthritis ??? Palpitations ??? Rotator cuff injury 01/19/2014 Right shoulder Past Surgical History: Procedure Laterality Date ??? SECTION 1985 ??? KNEE ARTHROSCOPY 2002 right knee Social History Tobacco Use ??? [...] 60 grandfather- [place] ??? Leukemia Son AML Allergies Allergen Reactions ??? Penicillins Anaphylaxis Tolerates cephalexin ??? Sulfa (Sulfonamide Antibiotics) Rash Current Outpatient Medications: aspirin 325 mg tablet B Complex Vitamins (VITAMIN B COMPLEX) tablet cephALEXin (KEFLEX) 500 mg capsule cholecalciferol, Vitamin D3, 2,000 unit tablet DILTiazem (CARDIZEM CD) 240 mg ER capsule ibuprofen (MOTRIN) 200 mg tablet levomefolate calcium (L-METHYLFOLATE ORAL) levothyroxine (SYNTHROID) 50 mcg tablet Magnesium 250 mg tablet melatonin 3 mg tablet MULTIVIT &MINERALS/FERROUS FUM (MULTI VITAMIN ORAL) No current facility-administered medications for this visit. Review of Systems Constitutional: Negative for chills, diaphoresis and fever. Respiratory: Negative for cough and shortness of breath. Cardiovascular: Negative for chest pain and palpitations. Gastrointestinal: Negative for abdominal pain, blood in stool, diarrhea, heartburn (takes pepcid asneeded), melena and nausea. Genitourinary: Negative for dysuria and hematuria. Musculoskeletal: Positive for joint pain (multiple). Skin: Negative for rash. Neurological: Negative for dizziness and headaches. Objective: BP 132/82 Pulse 64 Temp 36.4 ??C (97.6 ??F) (Tympanic) Resp 16 Ht 174 cm (68.5) Wt 93.1 kg (205 lb 3.2 oz) BMI 30.74 kg/m?? Body mass index is 30.74 kg/m??. Physical Exam General: well-developed, well-nourished woman HEENT: oral mucosa and pharynx are normal and without lesions. Tympanic membranes are visualized with a good light reflex. Sclerae are clear and non-icteric. Neck: no lymphadenopathy or thyromegaly Breasts: Exam deferred. She had a recent physical exam with her specialty development consultant. Lungs: clear in all lung negrete Cardiac: regular without murmur or gallop Abdomen: soft, non-tender, no masses. No hepatomegaly. No abdominal bruit. : Deferred. She is up-to-date with her Pap smear. Extremities: no cyanosis or edema Skin: no rashes Labs were done at [facility] on 05/21/19 Comprehensive metabolic panel was significant for an elevated glucose of 149 and was otherwise normal. Lipid panel showed an LDL of 143, HDL of 40, and triglycerides of 106 TSH was normal at 2.35 Hemoglobin A1c was 6.5. Assessment: 54-year-old woman here for a wellness visit and for follow-up. She is up to date with Tdap. She is aware that she is eligible for the shingles vaccine when it becomes available. Immunization History Administered Date(s) Administered ??? Historical Influenza Vaccine, Unspecified 02/16/2018 ??? Influenza Vaccine Recomb Quad RIV4 (FLUBLOK) PRSRV/ABX Free 0.5 ml IM (18 yrs+) 02/15/2019 ??? MMR Vaccine SQ 01/03/2009 ??? PPD Skin Test Placement 12/20/2008, 01/03/2009 ? ? Tdap Vaccine =>7YO IM 12/20/2008, 05/25/2018 Breast cancer screening:??she has never had a mammogram and was reminded again to schedule this. Cervical cancer screening:??Her last Pap smear was February 2019: normal cytology/negative HPV. Repeat 3 to 5 years. She had an ASGUS with negative HPV in 2015. Colon cancer screening: she is still due for a colonoscopy and agrees to another referral to [facility]. Osteoporosis screening/prevention: she is taking a vitamin D supplement and vitamin D level was normal last year. Fasting lipids show a mild hyperlipidemia and she would like to repeat this in a few months after increasing exercise. Given Advanced Directives paperwork. 1. Borderline diabetes: as above, she will increase exercise and work on weight loss. 2. Borderline hyperlipidemia:as above 3. Hypothyroidism:TSH is normal. No symptoms of over or under-replacement. 4. Adjustment reaction with depression and anxiety: She will restart Zoloft at 25 mg daily and let me know if she needs an increase in her dose. Plan: As above Follow-up in 6 months. Kirsten was seen today for annual exam. [...] Info) Description 05/20/2024 14:45 EST Office Visit [facility] Adult Primary Care - [address] [phone] Jasmyne Poe MD [address] [place] [phone] documented as of this encounter Visit Diagnoses Diagnosis Encounter for preventive health examination- Primary Routine general medical examination at a health care facility Depression screen Screening for depression Acquired hypothyroidism Unspecified hypothyroidism Screening for colon cancer Special screening for malignant neoplasms, colon Borderline diabetes mellitus Other abnormal glucose Anxiety Anxiety state, unspecified Obesity, Class I, BMI 30-34.9 Obesity, unspecified documented in this encounter Discontinued Medications Medication Sig Discontinue Reason Start Date End Da te cephALEXin (KEFLEX) 500 mg capsule Take 1 Cap by mouth 4 times daily. Therapy completed 12/11/2018 05/26/2019 aspirin 325 mg tablet Take 325 mg by mouth daily. Therapy completed 05/26/2019 documented as of this encounter Care Teams Nuclear Reactor Operator Relationship Specialty Start Date End Date Jasmyne Poe MD [address] [place] [phone] PCP - General 01/07/13 documented as of this encounter
--- OUTSIDE RECORDS SUMMARY | 2023-12-03 02:08 | XMS_ITS | Encounter Summary ---
Author Organization [facility] Address [address] [place] [address] Care Team Providers Care Grades 6 Through 8 Teacher Name Role Phone Jasmyne Poe MD Primary Care Provider + Reason for Visit * Reason Onset Date Comments Results 05/28/2018 Encounter Details Date Type Department Care Team (Late st Contact Info) Description 05/28/2018 Orders Only [facility] Adult Primary Care - [address] [phone] Fawn Claire LPN Social History Tobacco Use Types Packs/Day Years [...] Progress Notes * Fawn Claire LPN - 05/28/2018 1102 EST Enter/Edit documented in this encounter Plan of Treatment Upcoming Encounters Date Type Department Care Team (Late st Contact Info) Description 05/20/2024 14:45 EST Office Visit [facility] Adult Primary Care - [place] [address] [place] [address] Jasmyne Poe MD [address] [place] [phone] documented as of this encounter Procedures Procedure Name Priority Date/Time Associated Diagnosis Comments LIPID PROFILE (INCLUDES CHOLESTEROL, TRIGLYCERIDES, HDL, LDL) Routine 05/22/2018 documented in this encounter Results * LIPID PROFILE (INCLUDES CHOLESTEROL, TRIGLYCERIDES, HDL, LDL) (05/22/2018) Cholesterol, External [address] [facility] Triglycerides, External [address] [facility] HDL, External [address] [facility] LDL, External [address] [facility] Chol/HDL Ratio, External [facility] Fasting?, External [facility] Blood specimen (specimen) 05/22/2018 Historical Provider CHEMISTRY & BLOOD GAS ORDERABLES [facility] documented in this encounter Visit Diagnoses Not on filedocumented in this encounter Care Teams Grades 6 Through 8 Teacher Relationship Specialty Start Date End Date Jasmyne Poe MD [address] [place] [phone] PCP - General 01/07/13 documented as of this encounter
--- OUTSIDE RECORDS SUMMARY | 2023-12-03 02:08 | XMS_ITS | Encounter Summary ---
Author Organization [facility] Address [address] [place] [address] Care Team Providers Care Viticulturist Name Role Phone Jasmyne Poe MD Primary Care Provider + Reason for Visit * Reason Comments Telemedicine Phone Call 6 mo f/u Encounter Details Date Type Department Care Team (Latest Contact Info) Description 11/24/2019 11:00 EDT Telemedicine [facility] Adult Primary Care - [address] [address] Jasmyne Poe MD [address] [place] [phone] PAF (paroxysmal atrial fibrillation) ([facility]) (Primary Dx); Borderline diabetes mellitus; Acquired hypothyroidism Social History Tobacco Use Types [...] as of this encounter Progress Notes * Jasmyne Poe MD - 11/24/2019 1100 EDT TELEMEDICINE VISIT Time 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 Osteoarthritis ??? Allergy to penicillin ??? Anxiety ??? Acquired hypothyroidism ??? PAF (paroxysmal atrial fibrillation) (HCC-CMS) ??? Obesity, Class I, BMI 30-34.9 ??? Borderline diabetes mellitus ??? Myalgia ??? Abnormal uterine bleeding ??? Undifferentiated connective tissue disease (HCC-CMS) HPI: Here for 6-month follow-up 1. Palpitations: she has a documented history of PAF. Takes diltiazem ER daily and immediate release as needed. Seen by [facility] Cardiology in 03/2018. She was having increased palpitations over the winter. She stopped taking cold medication and palpitations improved. Since then however, the palpitations have picked up again. She notices them mostlyin the afternoon. She does take her diltiazem extended release in the afternoon. She has refrained from taking the quick acting diltiazem because her pulse, when measured, is only in the 70s and 80s when she has the palpitations. She had a follow-up echocardiogram in the spring which showed near resolution of the changes (mild LVH, dilated left atrium, elevated PA pressure) seen on her previous echocardiogram. 2. Borderline diabetes: She says that she is lost 20 pounds using the [employer] program. Her hemoglobin A1c has gone from 6.5 to 5.9 3. Rheumatology: She has been seen and evaluated by a pr internship at [facility]. Joint pains have improved. Lupus was felt to be unlikely despite the positive ALAINA. The plan was for her to call him if she develops symptoms again 4. We reviewed her blood work results. ROS As above Current Outpatient Medications Medication ??? B Complex Vitamins (VITAMIN B COMPLEX) tablet ??? cholecalciferol, Vitamin D3, 2,000 unit tablet ??? DILTiazem (CARDIZEM CD) 240 mg ER capsule ??? DILTiazem (CARDIZEM) 30 mg tablet ??? levomefolate calcium (L-METHYLFOLATE ORAL) ??? levothyroxine (SYNTHROID) 50 mcg tablet ??? Magnesium 250 mg tablet ??? melatonin 3 mg tablet ? ? MULTIVIT &MINERALS/FERROUS FUM (MULTI VITAMIN ORAL) ??? sertraline (ZOLOFT) 25 mg tablet No current facility-administered medications for this visit. Allergies Allergen Reactions ??? Penicillins Anaphylaxis Tolerates cephalexin ??? Sulfa (Sulfonamide Antibiotics) Rash Family History: Relevant family history includes Alcohol Abuse in her father; Diabetes in her maternal grandmother and maternal uncle; Heart Attack (age of onset: 60) in an other family member; Heart Disease in her maternal grandfather; Heart Surgery (age of onset: 50) in an other family member; Hypertension in her maternal grandmother; Leukemia in her son; Lung Cancer (age of onset: 63) in her mother; Lymphoma in her maternal grandfather; No Known in her brother. Social History Tobacco Use ??? Smoking status: Never Smoker ??? Smokeless tobacco: Never Used Substance Use Topics ??? Alcohol use: Yes Frequency: Monthly or less Drinks per session: 1 or 2 ??? Drug use: No Social History Social History Narrative , three children. Her youngest is a survivor of AML which was diagnosed at age 5. 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 General: No acute distress PULM: Speaking in complete sentences. No increased work of breathing. Neuro/Psych: Alert, Oriented, Appropriate, Conversant. Results Reviewed I have reviewed the laboratory and imaging data below: Blood work was done 11/19/2019 at [facility] Lipids: LDL 108 HDL 40 triglycerides 95 Hemoglobin A1c 5.9 ASSESSMENT and PLAN: 54 y.o. female with here for follow-up of 1. Palpitations: These have flared again. It's not clear they are due to PAF. The rate is normal but symptoms are bothersome. She would like to set up cardiac monitoring again to confirm the frequency and rhythm. She is interested in seeing a block placer at [facility], which is closer to where she lives and works, and will discuss monitoring with him. Referral done to [facility] I also recommended that she take her diltiazem ER in the morning if most of her symptoms are occurring in the afternoon. 2. Borderline diabetes: Significantly improved. Hemoglobin A1c is in the borderline range, 5.9, on no medication. 3. Obesity: Her weight is now 188 pound so BMI is under 30. 4. Hypothyroidism: last TSH was normal in April. 5. She has follow-up in May for a wellness visit. Blood work for lipids, CMP, TSH prior to thevisit. Kirsten was seen today for telemedicine phone call. Diagnoses and all orders for this visit: PAF (paroxysmal atrial fibrillation) ([facility]) - AMB CONS/FOLLOW UP CARDIOLOGY; Future Healthcare Maintenance: She has a referral for colonoscopy and will schedule this. She will also schedule her mammogram She will get her shingles vaccine at the pharmacy. Patient instructions provided at this visit: Given verbally at office visit. Patient location: Home Provider location at time of visit: Office The following staff were involved in the clinical care at this visit: Jasmyne Poe MD *The concept of ???Telemedicine?? has been described to the patient.? Patient has been informed ofthe anticipated benefits and possible risks.? Patient understands the information provided regarding telemedicine, has had the opportunity to ask questions about this information, and all questions have been answered to patient's satisfaction. Patient consents for the use of telemedicine in his/hermedical care and authorizes the transmission of any relevant medical information to providers and their staff involved in patient's medical or mental health care. Please Note: Part or all of this document was created with voice recognition software. The note hasbeen reviewed for accuracy; however typographical errors may be present. documented in this encounter Plan of Treatment Upcoming Encounters Date Type Department Care Team (Late st Contact Info) Description 05/20/2024 14:45 EST Office Visit [facility] Adult Primary Care - [address] [address] Jasmyne Poe MD [address] [place] [phone] documented as of this encounter Visit Diagnoses Diagnosis PAF (paroxysmal atrial fibrillation) ([facility])- Primary Atrial fibrillation Borderline diabetes mellitus Other abnormal glucose Acquired hypothyroidism Unspecified hypothyroidism documented in this encounter Discontinued Medications Medication Sig Discontinue Reason Start Date End Da te ibuprofen (MOTRIN) 200 mg tablet Take 200 mg by mouth as needed. Therapy completed 11/24/2019 documented as of this encounter Care Teams Viticulturist Relationship Specialty Start Date End Date Jasmyne Poe MD [address] [place] [phone] PCP - General 01/07/13 documented as of this encounter
--- OUTSIDE RECORDS SUMMARY | 2023-12-03 02:08 | XMS_ITS | Encounter Summary ---
Author Organization [facility] Address [address] [place] [address] Care Team Providers Care Mineralogy Professor Name Role Phone Jasmyne Poe MD Primary Care Provider + Reason for Visit * Reason Comments New Patient Visit Polyarthralgia Encounter Details Date Type Department Care Team (Late st Contact Info) Description 06/04/2019 9:30 EST Office Visit [facility] Rheumatology [address] [place] [address] Luke Sandhu MD [facility] Rheumatology [address] [place] [address] [place] [address] Myalgia (Primary Dx); ALAINA positive Social History Tobacco Use Types Packs/Day Years [...] Sign Reading Time Taken Comments Blood Pressure 138/70 06/04/2019 0928 EST Pulse 67 06/04/2019 0928 EST Temperature - - Respiratory Rate - - Oxygen Saturation - - Inhaled Oxygen Concentration - - Weight 94.8 kg (209 lb 1.6 oz) 06/04/2019927 E ST Height 175.5 cm (5' 9.1) 06/04/2019927 EST Body Mass Index 30.79 06/04/2019927 EST documented in this encounter Functional Status [...] * Patient Instructions* Luke Sandhu MD - 06/04/2019 9:30 EST Call with any worsening of symptoms. Will consider either a short course of prednisone or of a long acting NSAID documented in this encounter Progress Notes * Luke Sandhu MD - 06/04/2019929 EST [facility] Rheumatology Chief Complaint Patient presents with ??? New Patient Visit Polyarthralgia HPI: Kirsten is a new patient to [facility] section of rheumatology. She has been referred by her primary care provider Jasmyne Poe from [facility] for evaluation of myalgias, polyarthralgias in the context of a positive antinuclear antibody test. The antinuclear antibody returned with 2 different titers: 1 with a titer of 1: 160 homogeneous and another with a 1: 640 in a centromere immunofluorescent pattern. Additionally elevated CRP was noted. Chief complaint: Body/joint pain and stiffness with muscle weakness for approximately 4 years-good time/bad times. Difficulty walking when having flares or episodes. HPI: Kirsten is a 56-year-old with medical history notable for osteoarthritis, anxiety, hypothyroidism, paroxysmal atrial fibrillation, left foot wound. Kirsten states that she has had 2 infections in her feet which occurred last summer. The autoimmune work-up was actually initiated by [employer] due to her concern about significant reaction to small wound that she was taking care of in podiatry in addition to her intermittent fatigue and myalgia/arthralgia episodes. She had considered screening for conditions including hypothyroidism, diabetes, systemic lupus erythematosus, Lyme disease. A rheumatology referral was discussed at that time depending on the results of the testing she also had discussed with her primary care provider symptoms that she has had for approximately 4 years. She describes pain all over involving legs, feet, back, neck, arms. 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 She has had what she describes as episodes or flares which are gerardo fested by stiffness and achiness. The episodes are relatively infrequent. Her last episode was approximately 6 to 8 months ago. She did have laboratory testing which will be produced [...] the day goes on. Stiff in the morning the location of the musculoskeletal discomfortis diffuse. She reports that the discomfort is present constantly. Symptoms are exacerbated by being on her feet and with bending. She will use ibuprofen 600 to 800 mg at a time up to 3 times daily. She has tried Aleve. She has also paired nonsteroidal anti-inflammatory medications with acetaminophen she is also tried dietary changes without much success. Current Outpatient Medications: B Complex Vitamins (VITAMIN [...] grandmother ??? Heart Attack Other 60 grandfather- MD ??? Leukemia Son AML Review of Systems: 14 point ROS was done with the patient. See scanned document for details. Pertinent positives and negatives are noted in the HPI. Constitutional: No fevers. She does have fatigue which is of a chronic nature. She reports night sweats which she attributes to perimenopausal status. No weight gain. She has had weight loss which has been purposeful. HEENT: No eye pain or previously diagnosed inflammatory eye conditions. She has eye dryness. She uses artificial tears and has been using this for more than 2 years. No vision loss. No hearing loss. No tinnitus. No mouth sores. No dry mouth. No facial rash. Cardiovascular: No chest pain. 1 year ago she was diagnosed with paroxysmal atrial fibrillation. Pulmonary: No dyspnea cough or wheezing. Gastrointestinal: No nausea or vomiting. No abdominal pain or cramping. No blood in the stools has been noted. No diarrhea or cons the patient. She does get occasional heartburn for which she uses anH2 gerard. No difficulty swallowing. Dermatologic: No itching hair loss rash fingernail changes or photosensitivity. Vascular: No vasomotor changes in the distal upper or lower extremities in response to cold weather. No history of blood clots or easy bruising. Musculoskeletal: Currently joint pain involving left knee especially has had an orthopedic evaluation recently. No muscle pain currently. Morning stiffness daily with varying duration. She does report some myalgias and sensation of generalized muscle weakness. She does have lumbar spine pain. Neurologic: No headaches. She does occasionally have difficulty focusing with respect to cognition.No paresthesias. Genitourinary: No dysuria hematuria or frequency. Psychiatric: She does report some anxiety and depression. She does have insomnia Habits: She is a non-smoker. She has never smoked. Rare alcohol use. No recreational drug use. Activities of daily living: She sometimes has difficulty walking, ascending or descending stairs, getting up from a chair. Otherwise no faculties. She currently describes her situation most of the time as okay. history: 3 pregnancies. Had gestational diabetes with last . Family history: There is no history of autoimmune or inflammatory rheumatologic disease. Mother age 63 from lung cancer and pericarditis. Father age 58 unknown reasons. Has 1 brother who is healthy. Social history: She is . Has 3 children ages 33, 31, 17. Works at [employer] and has been doing this since 2008. Lives in [place]. Hobbies and interests: Snowmobiling and hiking. No recent travel outside [facility] or areas of viral concern. Toxic exposures: Therapies she may be encountering in the infusion suite. Only new medication is Zoloft. No known arthropod contact or ECM rash. Physical Examination: BP 138/70 (BP Cuff Sizes: Adult, large) Pulse 67 Ht 175.5 cm (69.1) Wt 94.8 kg (209 lb 1.6 oz) BMI 30.79 kg/m?? Physical exam: General appearance and movement: alert, nontoxic, no distress, healthy appearing. Overweight. Gets out of chair easily without stiffness or pain. HEENT: anicteric sclerae, conjunctivae clear; no facial rash, inspection of lips, gums, and palate reveals moist mucous membranes; there are no ulcerations in the mouth, pharynx, or the nose; oropharynx with restorative dentistry Neck: no lymphadenopathy or thyromegaly; normal flexion and extension and rotation to either side; lateral flexion is normal; normal carotid upstroke; central venous pressure < 7 cm Heart: regular rate and rhythm, no murmur, no extra sounds, no rubs Lungs: clear to auscultation, no rales, rubs, or wheezes Abdomen: normal bowel sounds, nontender, nondistended, no guarding, no masses, no prominent aortic pulsations. Lymphatic: no significant lymphadenopathy in the anterior cervical chains, nor in the supraclavicular or infraclavicular spaces Skin: no rash, no sclerodactyly, no telangiectasias, no subcutaneous nodules; significant number ofnevi Vascular: 2+ pulses in all 4 extremities Neurologic: Normal mental status, speech fluent, comprehension and language intact, alert and oriented Normal muscle bulk No abnormal movements, tremors, or fasciculations 5/5 strength in B/L UE/LE Normoreflexic in B/L UE/LE Normal Gait. Musculoskeletal: Posture: erect posture Hands: no nail pitting or onycholysis, mild OA changes in the PIPs and DIPs no synovial swelling ortenderness in MCPs or PIPs, neurovascular intact, no thenar atrophy; no dactylitis; no triggering of flexor tendons; no tendon friction rubs Wrists: no synovial swelling or tenderness, normal flexion and extension Elbows: no effusions or nodules, full flexion/extension, pronation and supination Shoulders: full range of motion in flexion, extension, internal and external rotation Hips: normal internal and external rotation Knees: no effusions; bilateral crepitation; full extension Ankles: no effusions, nontender to palpation and range of motion in subtalar and tibiotalar motions Feet: no synovitis or dactylitis Myofascial exam: no fasciculations or atrophy; no myofascial trigger points Labs: 12/11/2018: CBC with WBC 6.5 hemoglobin [...] negative. Anti-SSA antibody negative. Anti-Sexton antibody negative. Anti-[employer] antibody negative. Twvj-ajdlcd-wtioossd DNA antibody slightly positive at 38.3. Diagnostic imaging: Labs: Lab Requisition on 06/04/2019 Component Date Value ??? C3 Complement 06/04/2019 128 ??? C4 Complement 06/04/2019 28 ??? LA Rhea Summary 06/04/2019 Value:Negative for detection of lupus [...] Component Date Value ??? SED RATE - [facility] 06/04/2019 8 ??? CPK - CV 06/04/2019 87 ??? C-Reactive Protein 06/04/2019 5.7 ? ? ANTI CENTROMERE ANTIBODY* 06/04/2019 >8.0* ??? C3 Complement 06/04/2019 128 ??? C4 Complement 06/04/2019 28 ??? Dilute Viper Venom 06/04/2019 35.9 ??? LA Rhea Summary 06/04/2019 (See Note) ??? Silica Clotting [...] Protein, External 05/21/2019 7.0 ??? Bilirubin, Total, [employer]* 05/21/2019 0.4 ??? Cholesterol, External 05/21/2019 204 [...] formatting which cannot be displayed here. ??? Trainee: 05/04/2019 Value:This result contains rich text formatting [...] here. ??? Human Papillomavirus (HP* 03/04/2019 Negative Patient Message on 12/11/2018 Component Date Value ??? Anti Nuclear Ab, External 12/11/2018 Positive ??? Lyme AB, External 12/10/2018 negative ??? C-Reactive Protein, Exte* 12/10/2018 1.18 ??? Hemoglobin A1C, External 12/11/2018 6.3 ??? TSH, External 12/11/2018 2.19 ??? Anti Nuclear Ab, External 12/11/2018 Positive ??? Lyme AB, External 12/11/2018 Negative ??? Color UA, External 01/05/2019 Yellow ??? Clarity UA, External 01/05/2019 Clear ??? Glucose UA, External 01/05/2019 Negative ??? Bilirubin UA, External 01/05/2019 Negative ??? Ketones UA, External 01/05/2019 Negative ??? Specific [place] UA, Ext* 01/05/2019 1.015 ??? Blood UA, External 01/05/2019 Negative ??? pH UA, External 01/05/2019 7.0 ??? Protein UA, External 01/05/2019 Negative ??? Urobilinogen UA, External 01/05/2019 0.2 ??? Nitrite UA, External 01/05/2019 Negative ??? Leukocyte Esterase UA, E* 01/05/2019 Negative Office Visit on 12/10/2018 Component Date Value ??? Gram Smear Result 12/10/2018 Value:Few Polys ??? Gram Smear Result 12/10/2018 No bacteria seen ??? Result 12/10/2018 Value:Few STREPTOCOCCUS, BETA HEMOLYTIC GROUP B (STREPTOCOCCUS AGALACTIAE) Penicillin and ampicillin are drugs of choice for treatment of beta hemolytic streptococcal infections. Diagnosis / Assessment: 1. Myalgia Kirsten is a 54-year-old who is presented with a 4-year history of myalgias and arthralgias who was initially evaluated by podiatry due to foot wounds concerning for underlying connective tissue disorder especially given positive antinuclear antibody testing. Indeed her antinuclear antibody revealed 2 different patterns. She had 1 titer of 1: 160 in a homogeneous pattern and another titer at 1: 640 in a centromere staining pattern. Additionally further evaluation revealed a slightly elevated C-reactive protein as well as a borderline positive wruq-enmyrj-bvugsxbl DNA. First of all with respect to the Eular/ACR 2019 classification criteria she does not meet classification criteria for SLE. Initially one needs to have an entry criterion with a positive ALAINA which she does. Further there are 7 clinical domains in 3 immunologic domains which are given numerical scores. A score of more than or equal to 10 with a positive ALAINA is highly specific and sensitive for systemic lupus erythematosus. I would give her a total of 6 points for an geyh-gtrwau-hrqjfjar DNA despite the fact that this is borderline positive. She does not meet other clinical domains or immunologic domains. We may wish to expand our database to look at other tests for risk of thrombosis including anticardiolipin antibodies or beta-2 glycoprotein antibodies. Lupus anticoagulant testing was negative. Further evaluation at the time of her appointment showed a positive anticentromere antibody. This was significantly positive. Anti-centromere antibodies are found at approximately 30% of patients with systemic sclerosis and have the association with calcinosis and pulmonary hypertension. They are also found and approximately 15% of patients with primary biliary clinical cholangitis. They are found in between 4 and 15% of patients with Sjogren's syndrome and approximately 4 percent of patients with systemic lupus erythematosus. These antibodies are also found in patients with isolated Raynaud's. Though on satisfying we may need to consider her an undifferentiated connective tissue disease at this time. I wanted to further evaluate her profile with CPK, complement levels, CRP, ESR, and lupus anticoagulant. At the time of this appointment she is essentially asymptomatic. We discussed treatment options should she experience 1 of her stereotypical flares. I would advocate a short course of corticosteroid therapy or a course of nonsteroidal anti-inflammatory medications. I have asked her to give me a call with any worsening of her symptoms or recurrence of 1 of her episodic flares. Thank you very much for referring Kirsten to [facility] Rheumatology. Please feel free to contact me ifyou have any further questions or concerns regarding her evaluation. I will be seeing her again in 6 weeks. 2. ALAINA positive as above Recommendations/Evaluation: 60 mins byaj-bb-itcc time, > 50% spent in discussion about the diagnostic and therapeutic approach to assessing patients with musculoskeletal complaints. We discussed how to differentiate between inflammatory and mechanical causes of musculoskeletal pain. We discussed pattern recognition in identifying specific rheumatologic conditions and the role of diagnostic testing. We discussed treatmentoptions including pharmacologic and nonpharmacologic approaches. Luke Sandhu MD documented in this encounter Plan of Treatment Upcoming Encounters Date Type Department Care Team (Late st Contact Info) Description 05/20/2024 14:45 EST Office Visit [facility] - [place] [address] [place], [place] [id number] Jasmyne Poe MD [address] [place] [phone] documented as of this encounter Procedures Procedure Name Priority Date/Time Associated Diagnosis Comments ANTI CENTROMERE ANTIBODY - [facility] Routine 06/04/2019 11:08 EST Myalgia LUPUS ANTICOAGULANT CASCADE Routine 06/04/2019 11:08 EST Myalgia SED RATE Routine 06/04/2019 11:08 EST Myalgia C3 COMPLEMENT Routine 06/04/2019 11:08 EST Myalgia C4 COMPLEMENT Routine 06/04/2019 11:08 EST Myalgia C REACTIVE PROTEIN Routine 06/04/2019 11 :08 EST Myalgia CK Routine 06/04/2019 11:08 EST Myalgia documented in this encounter Results * LUPUS ANTICOAGULANT CASCADE (06/04/2019 11:08 EST) Dilute Viper Venom 35.9 27.2 - 36.9 secs 06/07/2019 19:04 EST [facility] LA Rhea Summary (See Note) () 06/07/2019 19:04 EST [facility] Comment: Result: Negative for detection of lupus anticoagulant (LA). Where clinical suspicion for antiphospholipid syndrome is high, it may be appropriate ??to perform alternative LA or aPL assays. ?? (See Note) Result: The laboratory criteria for Antiphospholipid Syndrome (aPL) include positive testing for one of the following on 2 or more occasions, at least 12 weeks apart: 1. Lupus anticoagulant (LA), (See Note) Result: 2. Cardiolipin antibodies (IgG or IgM) in medium or high titer, (See Note) Result: 3. Beta2-glycoprotein 1 antibodies (IgG or IgM) in medium or terrance titer. (See Note) Result: Solid-phase assays for Beta2 glycoprotein 1 (B2GP1) and Cardiolipin antibodies are recommended when evaluating a patient for antiphospholipid syndrome. ??Correlation with those results is advised. Choco Carmona IV, MD Lupus Anticoagulant not detected Silica Clotting Time 46.1 30.2 - 48.4 secs 06/07/2019 19:04 EST [facility] Comment: Test [place] [id number] 06/04/2019 11:0 8 EST 06/04/2019 11:08 EST Narrative [facility] - 06/07/2019 19:04 EST Does PT Have a Latex Allergy? NO Luke Sandhu MD HEMATOLOGY & PF4 ORD ERABLES Performing Organization Address City/[facility]/ZIP Co de Phone Number [facility] * C4 COMPLEMENT (06/04/2019 11:08 EST) C4 Complement 28 13 - 39 mg/dL 06/07/2019 19:04 [facility] Comment: Test performed [place] [id number] 06/04/2019 11:0 8 EST 06/04/2019 11:08 EST Narrative [facility] - 06/07/2019 19:04 EST Does PT Have a Latex Allergy? NO Luke Sandhu MD CHEMISTRY & BLOOD GA S ORDERABLES [facility] * C3 COMPLEMENT (06/04/2019 11:08 EST) C3 Complement 128 81 - 157 mg/dL 06/07/2019 19:04 [facility] Comment: Test performed or referred by The [address] [id number] 06/04/2019 11:0 8 EST 06/04/2019 11:08 EST Narrative [facility] - 06/07/2019 19:04 EST Does PT Have a Latex Allergy? NO Luke Sandhu MD CHEMISTRY & BLOOD GA S ORDERABLES Performing Organization Address City/[facility]/ZIP Co de Phone Number [facility] * (ABNORMAL) ANTI CENTROMERE ANTIBODY - [facility] (06/04/2019 11:08 EST) ANTI CENTROMERE ANTIBODY - [facility] >8.0(A) () U 06/07/2019 19:04 EST [facility] Comment: Interpretation: Positive (>=1.0) REFERENCE VALUE <1.0 (Negative) Test Performed by: [facility] [address] [place] [address] [employer] Operator: Luis Angel Cedeno M.D. Ph.D.; CLIA# [id number] 06/04/2019 11:0 8 EST 06/04/2019 11:08 EST [facility] - 06/07/2019 19:04 EST Does PT Have a Latex Allergy? NO Luke Sandhu MD CHEMISTRY & BLOOD GA S ORDERABLES [facility] * C REACTIVE PROTEIN (06/04/2019 11:08 EST) C-Reactive Protein 5.7 <10.0 mg/L 06/04/2019 12:36 EST [facility] 06/04/2019 11:0 8 EST 06/04/2019 11:08 EST Narrative [facility] - 06/04/2019 12:36 EST Does PT Have a Latex Allergy? NO Luke Sandhu MD CHEMISTRY & BLOOD GA S ORDERABLES [facility] * CK (06/04/2019 11:08 EST) [facility] 87 30 - 135 U/L 06/04/2019 12:36 EST [facility] 06/04/2019 11:0 8 EST 06/04/2019 11:08 EST Narrative [facility] - 06/04/2019 12:36 EST Does PT Have a Latex Allergy? NO Luke Sandhu MD CHEMISTRY & BLOOD GA S ORDERABLES Performing Organization Address City/[facility]/ZIP Co de Phone Number [facility] * SED. RATE:[facility] (06/04/2019 11:08 EST) [facility] RATE [facility] 8 1 - 30 mm/hr 06/04/2019 11:24 EST [facility] 06/04/2019 11:0 8 EST 06/04/2019 11:08 EST Narrative [facility] - 06/04/2019 11:24 EST Does PT Have a Latex Allergy? NO Luke Sandhu MD HEMATOLOGY & PF4 ORD ERABLES Performing Organization Address City/[facility]/ZIP Co de Phone Number [facility] documented in this encounter Visit Diagnoses Diagnosis Myalgia- Primary Mylagia and myositis, unspecified ALAINA positive Other and unspecified nonspecific immunological findings documented in this encounter Care Teams Mineralogy Professor Relationship Specialty Start Date End Date Jasmyne Poe MD [address] [place] [phone] PCP - General 01/07/13 documented as of this encounter
--- OUTSIDE RECORDS SUMMARY | 2023-12-03 02:08 | XMS_ITS | Encounter Summary ---
Author Organization [facility] Address [address] [place] [address] Care Team Providers Care Acid Changer Name Role Phone Jasmyne Poe MD Primary Care Provider + Encounter Details Date Type Department Care Team (Late st Contact Info) Description 01/12/2020 Lab Requisition [facility] Pathology & Laboratory Medicine - [address] [address] Adriano Cam PA [address] [place] [address], [address] [place] [address] Neoplasm of uncertain behavior of [...] Info) Description 05/20/2024 14:45 EST Office Visit [facility] Adult Primary Care - [address] [address] Jasmyne Poe MD [address] [place] [phone] documented as of this encounter Procedures Procedure Name Priority Date/Time Associated Diagnosis Comments SURGICAL PATHOLOGY Today 01/12/2020 9:45 EDT Neoplasm of uncertain behavior of skin documented in this encounter Results * SURGICAL PATHOLOGY (01/12/2020 9:45 EDT) Final Diagnosis A. SKIN OF BACK, RIGHT LATERAL UPPER, EXCISION: - Epidermal reparative change and dermal scar. See comment. - No residual atypical melanocytic nevus identified. 01/17/2020 8:22 EDT [facility] Diagnosis Comment The patient's prior material ([id number]) has been reviewed in conjunction with the current specimen. Deeper levels have been examined on block A1. 01/17/2020 8:22 EDT [facility] Attestation By the signature below, the attending physician certifies that they have 1) personally conducted a gross and/or microscopic examination of the described specimen(s), and/or personally interpreted the results of laboratory testing of the described specimen(s), and 2) personally rendered or confirmed the above diagnosis. 01/17/2020 8:22 [facility] at 0822 Clinical History 1.5 cm pink scar at biopsy site; DDX: Severely atypical nevus; notes: Please check margins, previous accession #[id number] 01/17/2020 8:22 EDT [facility] Gross Description A. Received in formalin labelled with proper patient identification (initials P, S) and right lateral upper back is an unoriented elliptical skin excision (2.7 x 1.2 cm and is excised to the depth of 0.5 cm). There is a central well-healed scar (0.5 x 0.2 cm). The specimen is inked blue. The tips are submitted reverse en face in A1 and central sections in A2-A3. 01/12/2020 12:40 01/17/2020 8:22 EDT [facility] Performing Lab [facility] 01/17/2020 8:22 T [facility] Scanned Images 01/17/2020 8:22 T [facility] Tissue TISSUE SPECIMEN FROM SKIN / Unknown 01/12/2020 9:45 EDT 01/12/2020 12:31 EDT Adriano MESA PATHOLOGY ORDERABLES [facility] [address] [place] [address] documented in this encounter Visit Diagnoses Diagnosis Neoplasm of uncertain behavior of skin documented in this encounter Additional Health Concerns Infection Onset Date Last Indicated Resolved Time R/O COVID-19 10/16/2020 10/16/2020 10/16/2020 5:30 EDT documented as of this encounter Care Teams Acid Changer Relationship Specialty Start Date End Date Jasmyne Poe MD [address] [place] [phone] PCP - General 01/07/13 documented as of this encounter
--- OUTSIDE RECORDS SUMMARY | 2023-12-03 02:08 | XMS_ITS | Encounter Summary ---
Author Organization [facility] Address [address] [place] [address] Care Team Providers Care Freelance Graphic Designer Name Role Phone Jasmyne Poe MD Primary Care Provider + Encounter Details Date Type Department Care Team (Late st Contact Info) Description 11/24/2019 Lab Requisition [facility] Pathology & Laboratory Medicine - [facility] [address] [place] [address] Maya Rincon PA-C [address] [place] [address],[address] [place], [place] [phone] Neoplasm of uncertain behavior of skin Social [...] Info) Description 05/20/2024 14:45 EST Office Visit [facility] Adult Primary Care - [address] [phone] Jasmyne Poe MD [address] [place] [phone] documented as of this encounter Procedures Procedure Name Priority Date/Time Associated Diagnosis Comments SURGICAL PATHOLOGY Today 11/23/2019 16 :17 EDT Neoplasm of uncertain behavior of skin documented in this encounter Results * SURGICAL PATHOLOGY (11/23/2019 16:17 EDT) Final Diagnosis A. SKIN OF BACK, RIGHT LATERAL UPPER, SHAVE BIOPSY: - Melanocytic nevus, compound type, with unusual architectural features and severe cytologic atypia. See comment. - Nevus present focally at peripheral tissue edge. 11/29/2019 7:52 EDT [facility] Diagnosis Comment The biopsy consists a compound melanocytic proliferation that is relatively discrete and symmetric but has appreciable architectural disorder and cytologic atypia. Namely, there is central upward migration of melanocytes within the epidermis to the level of the mid reticular dermis. Although areas of the lesion have features approaching those melanoma, the upward migration does not extend laterally, is only to the mid level of the epidermis, and the dermal component shows features of maturation. The lesion extends focally to the peripheral edge of the biopsy specimen. 11/29/2019 7:52 [facility] Attestation By the signature below, the attending physician certifies that they have 1) personally conducted a gross and/or microscopic examination of the described specimen(s), and/or personally interpreted the results of laboratory testing of the described specimen(s), and 2) personally rendered or confirmed the above diagnosis. 11/29/2019 7:52 [facility] at 0752 Microscopic Description Sections consist of a shave biopsy of a papule. The papule is formed by a compound melanocytic proliferation that is relatively circumscribed and symmetric. There is associated epidermal hyperplasia. The intraepidermal melanocytes are arranged in nests and as individual cells. In the central portion lesion, the individual melanocytes show upward migration in the lower and mid portions of the epidermis. Fully developed pagetoid migration and lateral upward growth are not seen. The melanocytes are enlarged and have nuclear atypia. There is abundant melanin pigment within the melanocytes, keratinocytes, and melanophages. The dermal component consists of smaller melanocytes forming cords and strands that mature with descent. Deeper sections show similar features. Sections prepared for SOX-10 ALK PHOS (SP267, Fliptop) highlight the aforementioned features. NOTE: One or more of the reagents used in immunoperoxidase testing in this case may not have been cleared or approved by the U.S. Food and Drug Administration (FDA). The FDA has determined that such clearance or approval is not necessary. These tests are used for clinical purposes. They should not be regarded as investigational or for research. These reagents' performance characteristics have been determined by [facility] and/or by the referring laboratory. The positive and negative controls worked appropriately. If immunoperoxidase staining has been performed on alcohol fixed cytology specimens, which has not been fully validated, the assays should be interpreted with caution and correlated with clinical data. This laboratory is certified under the Clinical Laboratory Improvement Amendments of 1988 (CLIA-88) as qualified to perform high complexity clinical laboratory testing.? 11/29/2019 7:52 [facility] Clinical History 0.5 cm oval brown-black papule; DDX: Atypical nevus vs. pigmented SK vs. MM vs. compound nevus vs. other 11/29/2019 7:52 EDT [facility] Gross Description A. Received in formalin labelled with proper patient identification (initials P, S) and A. Right lateral upper back is a shave biopsy of smooth pale barker skin (0.6 x 0.5 x 0.1 cm). There is a relatively central smooth surfaced dark brown papule (0.5 x 0.3 x 0.1 cm). The margin is inked blue. The specimen is trisected and entirely submitted in A1. Brent Peacock 11/24/2019 13:57 11/29/2019 7:52 EDT [facility] Performing Lab [facility] 7:52 EDT [facility] Scanned Images 11/29/2019 7:52 EDT [facility] Tissue TISSUE SPECIMEN FROM SKIN / Unknown 11/23/2019 16:17 EDT 11/24/2019 13:01 EDT Maya Rincon PA-C PATHOLOGY ORD ERABLES [facility] [address] [place] [address] documented in this encounter Visit Diagnoses Diagnosis Neoplasm of uncertain behavior of skin documented in this encounter Additional Health Concerns Infection Onset Date Last Indicated Resolved Time R/O COVID-19 10/16/2020 10/16/2020 10/16/2020 5:30 EDT documented as of this encounter Care Teams Freelance Graphic Designer Relationship Specialty Start Date End Date Jasmyne Poe MD [address] [place] [phone] PCP - General 01/07/13 documented as of this encounter
--- OUTSIDE RECORDS SUMMARY | 2023-12-03 02:08 | XMS_ITS | Encounter Summary ---
Author Organization [facility] Address [address] [place] [address] Care Team Providers Care Inside Sales Advisor Name Role Phone Jasmyne Poe MD Primary Care Provider + Reason for Visit * Reason Onset Date Comments Results 04/24/2018 Encounter Details Date Type Department Care Team (Late st Contact Info) Description 04/24/2018 Orders Only [facility] Adult Primary Care - [address] [address] Fawn Claire LPN Social History Tobacco Use [...] Progress Notes * Fawn Claire LPN - 04/24/2018 1702 EST Enter/Edit documented in this encounter Plan of Treatment Upcoming Encounters Date Type Department Care Team (Late st Contact Info) Description 05/20/2024 14:45 EST Office Visit [facility] Adult Primary Care - [place] [address] [place] [address] Jasmyne Poe MD [address] [place] [phone] documented as of this encounter Procedures Procedure Name Priority Date/Time Associated Diagnosis Comments TSH Routine 02/19/2018 HEMOGLOBIN A1C Routine 02/19/2018 BASIC METABOLIC PANEL (BMP) Routine 02/19/2018 documented in this encounter Results * TSH (02/19/2018) TSH, External 2.80 EXTERNAL LAB Blood specimen (specimen) 02/19/2018 Historical Provider CHEMISTRY & BLOOD GAS ORDERABLES EXTERNAL LAB * HEMOGLOBIN A1C (02/19/2018) Hemoglobin A1C, External 5.8 EXTERNAL LAB Est Avg Glucose, External EXTERNAL LAB Blood specimen (specimen) 02/19/2018 Historical Provider CHEMISTRY & BLOOD GAS ORDERABLES EXTERNAL LAB * BASIC METABOLIC PANEL (BMP) (02/19/2018) GFR, Calculated, External >60.00 EXTERNAL LAB Glucose, Serum, External 120 EXTERNAL LAB Calculated Calcium, External EXTERNAL LAB BUN, External 16 EXTERNAL LAB Calcium, External 8.8 EXTERNAL LAB Chloride, External 101 EXTERNAL LAB CO2, External 26.6 EXTERNAL LAB Creatinine, External 0.67 EXTERNAL LAB Fasting?, External EXTERNAL LAB Potassium, External 3.8 EXTERNAL LAB Sodium, External 137 EXTERNAL LAB Blood specimen (specimen) 02/19/2018 Historical Provider CHEMISTRY & BLOOD GAS ORDERABLES EXTERNAL LAB documented in this encounter Visit Diagnoses Not on filedocumented in this encounter Care Teams Inside Sales Advisor Relationship Specialty Start Date End Date Jasmyne Poe MD [address] [place] [phone] PCP - General 01/07/13 documented as of this encounter
--- OUTSIDE RECORDS SUMMARY | 2023-12-03 02:08 | XMS_ITS | Encounter Summary ---
Author Organization [facility] Address [address] [place] [address] Care Team Providers Care Supervisor Sawing And Assembly Name Role Phone Jasmyne Poe MD Primary Care Provider + Reason for Visit * Reason Onset Date Comments Foot Injury 12/10/2018 Encounter Details Date Type Department Care Team (Late st Contact Info) Description 12/10/2018 Telephone [facility] Adult Primary Care - [address] [address] Jasmyne Poe MD [address] [place] [phone] Foot Injury Social History Tobacco Use Types Packs/Day Years [...] Miscellaneous Notes * Telephone Encounter - Adriano Luong - 12/10/2018 1039 EDT T/c to patient and advised appt. Booked for 1545. No injury she can think of. She will be here for visit. * Telephone Encounter - Jasmyne Poe MD - 12/10/2018 1032 EDT Started 4 days ago. No trauma or other explanation for the wound? If she feels it is progressing, would have her seen. Ok to see Gen * Telephone Encounter - Adriano Luong - 12/10/2018 0956 EDT T/c to patient. Has a blister on top of the left foot. Blister began on Wednesday 12/06. It is red, hotto touch. Has some edema on ankle and to left of the blister Wound is 1-2cm and redness extends 3-4cm. It is painful to touch and with standing. Denies fevers or streaking and states it looks exactly like the other wound she had last month. She finished the doxycycline 3 weeks ago and had completehealing of the wound on the opposite foot. She is willing to come in for visit but only opening today is at 10 am and she [place] hour away. There are a couple of 15 minutes slots at 1545 with Sanjay and 1530 with Jakub. To PCP to review. * Telephone Encounter - Genesis Dean - 12/10/2018 0939 EDT New infection on the opposite foot of what was treated before Right heel was treated for infection end of october - metal door hit foot - finished antibiotics 3 weeks ago - everything healed up - Now left foot on top - got a blister andIs infected similar to right heel - red, swollen, painful, warm to touch documented in this encounter Plan of Treatment Upcoming Encounters Date Type Department Care Team (Late st Contact Info) Description 05/20/2024 14:45 EST Office Visit [facility] Adult Primary Care [address] [address] Jasmyne Poe MD [address] [place] [phone] documented as of this encounter Visit Diagnoses Not on filedocumented in this encounter Care Teams Supervisor Sawing And Assembly Relationship Specialty Start Date End Date Jasmyne Poe MD [address] [place] [phone] PCP - General 01/07/13 documented as of this encounter
--- OUTSIDE RECORDS SUMMARY | 2023-12-03 02:08 | XMS_ITS | Encounter Summary ---
Author Organization [facility] Address [address] [place] [address] Care Team Providers Care Loading Machine Operator Helper Name Role Phone Jasmyne Poe MD Primary Care Provider + Encounter Details Date Type Department Care Team (Late st Contact Info) Description 11/11/[address] [facility] Adult Primary Care - [address] [address] Jasmyne Poe MD [address] [place] [phone] Recurrent cellulitis of lower leg (Primary [...] Description 05/20/2024 14:[address] [facility] Adult Primary Care - [address] [phone] Jasmyne Poe MD [address] [place] [phone] documented as of this encounter Visit Diagnoses Diagnosis Recurrent cellulitis of lower leg- Primary Cellulitis and abscess of leg, except foot documented in this encounter Care Teams Loading Machine Operator Helper Relationship Specialty Start Date End Date Jasmyne Poe MD [address] [place] [phone] PCP - General 01/07/13 documented as of this encounter
--- OUTSIDE RECORDS SUMMARY | 2023-12-03 02:08 | XMS_ITS | Encounter Summary ---
Author Organization [facility] Address [address] [place] [address] Care Team Providers Care Bulk Tank Car Unloader Name Role Phone Jasmyne Poe MD Primary Care Provider + Reason for Visit * Reason Comments Telemedicine Phone Call medication issue ? Encounter Details Date Type Department Care Team (Late st Contact Info) Description 10/11/2019 14:30 EDT Telemedicine [facility] Adult Primary Care - [address] [address] Jasmyne Poe MD [address] [place] [phone] PAF (paroxysmal atrial fibrillation) (FORMERLY [facility]) (Primary Dx) Social History Tobacco Use Types [...] Refills Start Date End Da te DILTiazem (CARDIZEM) 30 mg tablet Take 1 Tab by mouth daily as needed for Other. 30 Tab 10/11/2019 12/19/2020 documented in this encounter Progress Notes * Jasmyne Poe MD - 10/11/2019 1430 EDT TELEMEDICINE VISIT Time salesperson furniture: 2:47 pm Time off call: 2:59 pm Duration of call: 12 minutes Patient informed and consent obtained for billable telemedicine visit*: yes Reason for call: Telemedicine Phone Call (medication issue?) Patient Active Problem List Diagnosis ??? Osteoarthritis ??? Allergy to penicillin ??? Anxiety ??? Acquired hypothyroidism ??? PAF (paroxysmal atrial fibrillation) (HCC-CMS) ??? Obesity, Class I, BMI 30-34.9 ??? Borderline diabetes mellitus ??? Myalgia ??? Abnormal uterine bleeding ??? Undifferentiated connective tissue disease (HCC-CMS) HPI: Kirsten sent me a my chart message last week to let me know that she was having increased episodes of palpitations, presumably atrial fibrillation. She has a documented history of paroxysmal atrial fibrillation. She was seen by Cardiology here at [facility] for this. Echocardiogram done in 2018 and showed mild LVH and moderately increased pulmonary pressure. PFT's were normal. Sleep study was discussed but I don't believe this was ever done. Her previous episodes occurred less than monthly but these more recent episodes were occurring almost daily, usually in the afternoon. Her heart rate would go up to 140-150. The episodes would last 4 to 6 hours and then resolve. She is taking diltiazem CD 240 mg daily and 1 of her questions is whether she should increase the dose of this. New medications include diphenhydramine, ibuprofen, and sertraline. She has stopped all of these asof a week ago and has had no palpitations since. Her blood pressures have been running in the 130s over 70s. Normally her pulse is in the 50s and 60s. ROS As above Current Outpatient Medications: B Complex Vitamins (VITAMIN B COMPLEX) tablet cholecalciferol, Vitamin D3, 2,000 unit tablet DILTiazem (CARDIZEM CD) 240 mg ER capsule DILTiazem (CARDIZEM) 30 mg tablet ibuprofen (MOTRIN) 200 mg tablet levomefolate calcium [...] Alcohol use: No ??? Drug use: No Social History Social [...] reviewed the laboratory and imaging data below: Lab Results Component Value Date NA 142 03/12/2017 K 4.2 03/12/2017 KEXT 3.9 05/21/2019 CL 104 03/12/2017 CLEXT 107 05/21/2019 CO2 31 03/12/2017 CO2EXT 31.1 05/21/2019 Lab Results Component Value Date CREATININE 0.63 03/12/2017 CREATININEEX 0.62 05/21/2019 No results found for: WBC, HGB, HCT, MCV, PLT Lab Results Component Value Date ALT 27 03/12/2017 AST 15 03/12/2017 ALKPHOS 47 03/12/2017 Lab Results Component Value Date HGBA1C 5.7 05/21/2017 Lab Results Component Value Date CHOL 149 03/12/2017 HDL 42 03/12/2017 LDLBASE 88 03/12/2017 TRIG 94 03/12/2017 CHOLHDL 3.5 03/12/2017 ECHOCARDIOGRAM *Interpreting Group:* *[facility]* [address] [place] [address] Date of study: 02/24/2018 Transthoracic Echocardiography M-mode, complete 2D, complete spectral Doppler, and color Doppler *STUDY CONCLUSIONS* Summary: 1. Left ventricle: The cavity size was normal. Wall thickness was increased in a pattern of mild LVH. Systolic function was normal. The estimated ejection fraction was 60-65%. Wall motion was normal; there were no regional wall motion abnormalities. 2. Left atrium: The atrium was moderately dilated. 3. Right ventricle: The cavity size was normal. Systolic function was normal. 4. Pulmonary arteries: Pulmonary systolic pressure was mildly to moderately increased, in the range of 40mm Hg to 45mm Hg. *PATIENT PRESENTATION* Height: 175.3cm ((69in) ) S/D Pressure: 165 / 65 Weight: 94.3kg ((207.6lb) ) BSA: 2.17m^2 Test start time: 03:15 PM. Test stop time: 03:40 PM. ATTENDING Jasmyne Poe ORDERING Jasmyne Poe REFERRING Jasmyne oPe FELLOW Lorenza Bosch MD REFERRING Jasmyne Poe e PERFORMING [facility], Op [facility] AUTHOR Luis Angel Jason *PROCEDURE DATA* Procedure information: The patient was identified by two identifiers. This study was interpreted by [facility]. Pertinent images and digital data are archived for permanent storage and are available for subsequent review. Study status: Routine. Transthoracic echocardiography. M-mode, complete 2D, complete spectral Doppler, and color Doppler. A Transthoracic Echocardiogram was performed. Scanning was performed from the parasternal, apical, subcostal, and suprasternal notch acoustic windows. Images were obtained using a Mary [id number] cardiac ultrasound machine. Image quality was adequate. The study was technically limited due to body habitus. Study completion: The patient tolerated the procedure well. *INDICATIONS AND HISTORY* Indications: I48.0 *CARDIAC ANATOMY* Left ventricle: The cavity size was normal. Wall thickness was increased in a pattern of mild LVH. Systolic function was normal. The estimated ejection fraction was 60-65%. Wall motion was normal; there were no regional wall motion abnormalities. Diastolic parameters were not diagnostic. Aortic valve: Trileaflet; normal thickness leaflets. Mobility was not restricted. Doppler: Transvalvular velocity was within the normal range. There was no stenosis. There was no significant regurgitation. VTI ratio of LVOT to aortic valve: 0.88. Valve area (VTI): 2.8cm^2. Indexed valve area (VTI): 1.3cm^2/m^2. Peak velocity ratio of LVOT to aortic valve: 0.77. Valve area (Vmax): 2.4cm^2. Indexed valve area (Vmax): 1.1cm^2/m^2. Mean velocity ratio of LVOT to aortic valve: 0.8. Valve area (Vmean): 2.5cm^2. Indexed valve area (Vmean): 1.2cm^2/m^2. Mean gradient (S): 6mm Hg. Peak gradient (S): 14mm Hg. Aorta: Aortic root: The aortic root was normal in size. Mitral valve: Structurally normal valve. Mobility was not restricted. Doppler: Transvalvular velocity was within the normal range. There was no evidence for stenosis. There was trivial regurgitation. Peak gradient (D): 4.4mm Hg. Left atrium: The atrium was moderately dilated. Right ventricle: The cavity size was normal. Systolic function was normal. Pulmonic valve: Not well visualized. Doppler: Transvalvular velocity was within the normal range. There was no evidence for stenosis. There was no significant regurgitation. Tricuspid valve: Structurally normal valve. Doppler: Transvalvular velocity was within the normal range. There was no evidence for stenosis. There was trivial regurgitation. Pulmonary artery: Pulmonary systolic pressure was mildly to moderately increased, in the range of 40mm Hg to 45mm Hg. Right atrium: The atrium was normal in size. Pericardium: There was no pericardial effusion. Systemic veins: Inferior vena cava: The vessel was mildly dilated. Measurements Left ventricle Value Reference LV ID, ED, PLAX 4.6 cm 3.5 - 6.0 LV ID, ES, PLAX 2.9 cm 2.1 - 4.0 LV PW thickness, ED, PLAX 1.2 cm LV end-diastolic volume, 1-p A4C 86 ml LV ejection fraction, 1-p A4C 77 % LV e', lateral 0.106 m/sec LV E/e', lateral 10 LV e', medial 0.082 m/sec LV E/e', medial 13 LV e', average 0.094 m/sec LV E/e', average 11 Ventricular septum Value Reference IVS thickness, ED, PLAX 1.1 cm LVOT Value Reference LVOT ID, S 2.0 cm LVOT area 3.1 cm^2 LVOT peak velocity, S 1.41 m/sec LVOT mean velocity, S 0.93 m/sec LVOT VTI, S 31.0 cm LVOT peak gradient, S 8 mm Hg LVOT mean gradient, S 4 mm Hg Stroke volume (SV), LVOT DP 97 ml Stroke index (SV/bsa), LVOT DP 45 ml/m^2 Aortic valve Value Reference Aortic valve peak velocity, S 1.8 m/sec Aortic valve mean velocity, S 1.17 m/sec Aortic valve VTI, S 35.4 cm Aortic mean gradient, S 6 mm Hg Aortic peak gradient, S 14 mm Hg VTI ratio, LVOT/AV 0.88 Aortic valve area, VTI 2.8 cm^2 Velocity ratio, peak, LVOT/AV 0.77 Aortic valve area, peak velocity 2.4 cm^2 Velocity ratio, mean, LVOT/AV 0.8 Aortic valve area, mean velocity 2.5 cm^2 Aortic valve area/bsa, mean velocity 1.2 cm^2/m^2 Aorta Value Reference Aortic root ID 2.8 cm Left atrium Value Reference LA ID, A-P, ES 4.2 cm LA ID/bsa, A-P 1.9 cm/m^2 <=2.2 LA ID, M-L, A4C (H) 6.2 cm 2.9 - 4.9 LA area, ES, A4C (H) 26.7 cm^2 8.8 - 23.4 LA volume, ES, 1-p A4C 94 ml LA volume/bsa, ES, 1-p A4C 43 ml/m^2 LA volume, ES, A/L 94 ml LA volume/bsa, ES, A/L 43 ml/m^2 LA/aortic root ratio 1.5 Mitral valve Value Reference Mitral E-wave peak velocity 1.05 m/sec Mitral A-wave peak velocity 0.86 m/sec Mitral deceleration time 194 ms 150 - 230 Mitral peak gradient, D 4.4 mm Hg Mitral E/A ratio, peak 1.2 Legend: (L) and (H) lily values outside specified reference range. I have personally reviewed the images and have reviewed and edited the reported findings. Electronically signed by Adrinao Cyr MD 02/24/2018 16:43 ASSESSMENT and PLAN: 54 y.o. female with recent increased episode of palpitations, presumable PAF The episodes have decreased since stopping the diphenhydramine, ibuprofen, and sertraline. I suspect the diphenhydramine was the culprit. She can go ahead and restart the sertraline. Her ladderman has ordered another echocardiogram to follow-up on her previous. She has an appointment for a wellness visit later this summer and I will confirm that she has not had a sleep study. No other medication changes made today. Kirsten was seen today for telemedicine phone call. Diagnoses and all orders for this visit: PAF (paroxysmal atrial fibrillation) (FORMERLY [facility]) Other orders - sertraline (ZOLOFT) 25 mg tablet; Take 25 mg by mouth daily. - DILTiazem (CARDIZEM) 30 mg tablet; Take 1 Tab by mouth daily as needed for Other. Healthcare Maintenance: She is due for a mammogram and a colonoscopy which we will set up at her upcoming wellness visit toprevent palpitations, avoid diphenhydramine (Benadryl) and ibuprofen. Okay to start the sertraline again. To avoid further episodes of atrial fibrillation, Patient instructions provided at this visit: To prevent further episodes of atrial fibrillation, avoid the diphenhydramine and ibuprofen. Okay to restart the sertraline at original dose. Call if palpitations start up again. Otherwise I will see you at your wellness visit. Jasmyne Poe MD 10/12/2019 9:24 Patient location: Home Provider location at time [...] Info) Description 05/20/2024 14:45 EST Office Visit [facility] Adult Primary Care [address] [phone] Jasmyne Poe MD [address] [place] [phone] documented as of this encounter Visit Diagnoses Diagnosis PAF (paroxysmal atrial fibrillation) (FORMERLY [facility])- Primary Atrial fibrillation documented in this encounter Historical Medications * This list may reflect changes made after this encounter. Medication Sig Dispensed Refills Start Date End Date sertraline (ZOLOFT) 25 mg tablet Take 25 mg by mouth daily. 09/20/2019 02/08/2020 added in this encounter Care Teams Bulk Tank Car Unloader Relationship Specialty Start Date End Date Jasmyne Poe MD [address] [place] [phone] PCP - General 01/07/13 documented as of this encounter
--- OUTSIDE RECORDS SUMMARY | 2023-12-03 02:08 | XMS_ITS | Encounter Summary ---
Author Organization [facility] Address [address] [place] [address] Care Team Providers Care Sleeve Wheel Maker Name Role Phone Jasmyne Poe MD Primary Care Provider + Encounter Details Date Type Department Care Team (Late st Contact Info) Description 05/29/2018 Orders Only [facility] Adult Primary Care - [address] [address] Fawn Claire LPN Encounter for preventive health [...] Description 05/20/2024 14:45 EST Office Visit [facility] Adult Primary Care - [address] [place] [address] Jasmyne Poe MD [address] [place] [phone] documented as of this encounter Visit Diagnoses Diagnosis Encounter for preventive health examination- Primary Routine general medical examination at a health care facility documented in this encounter Care Teams Sleeve Wheel Maker Relationship Specialty Start Date End Date Jasmyne Poe MD [address] [place] [phone] PCP - General 01/07/13 documented as of this encounter
--- OUTSIDE RECORDS SUMMARY | 2023-12-03 02:08 | XMS_ITS | Encounter Summary ---
Author Organization [facility] Address [address] [place] [address] Care Team Providers Care Junior Sales Representative Name Role Phone Jasmyne Poe MD Primary Care Provider + Reason for Visit * Reason Onset Date Comments Appointment Related 05/08/2018 Encounter Details Date Type Department Care Team (Late st Contact Info) Description 05/08/2018 Telephone [facility] Adult Primary Care - [address] [phone] Fawn Cliare LPN Appointment Related Social History Tobacco Use Types [...] encounter Miscellaneous Notes * Telephone Encounter - Fawn Claire LPN - 05/08/2018 1336 EST Pt aware of fasting labs prior to appt 05/25/18. Labs faxed to [facility] per pt's request @ [phone] documented in this encounter Plan of Treatment Upcoming Encounters Date Type Department Care Team (Late st Contact Info) Description 05/20/2024 14:45 EST Office Visit [facility] Adult Primary Care [address] [phone] Jasmyne Poe MD [address] [place] [phone] documented as of this encounter Visit Diagnoses Not on filedocumented in this encounter Care Teams Junior Sales Representative Relationship Specialty Start Date End Date Jasmyne Poe MD [address] [place] [phone] PCP - General 01/07/13 documented as of this encounter
--- OUTSIDE RECORDS SUMMARY | 2023-12-03 02:08 | XMS_ITS | Encounter Summary ---
Author Organization [facility] Address [address] [place] [address] Care Team Providers Care It Application Development Manager Name Role Phone Jasmyne Poe MD Primary Care Provider + Encounter Details Date Type Department Care Team (Late st Contact Info) Description 07/26/2019 Orders Only [facility] Clinic [address] [place], [place] [address] Anthony Posey MD [address] [facility] [address] [place] [address] Pulmonary hypertension (HCC-CMS) (Primary Dx) Social History Tobacco Use [...] Office Visit [facility] Adult Primary Care [address] [phone] Jasmyne Poe MD [address] [place] [phone] documented as of this encounter Visit Diagnoses Diagnosis Pulmonary hypertension (HCC-CMS)- Primary Other chronic pulmonary heart diseases documented in this encounter Care Teams It Application Development Manager Relationship Specialty Start Date End Date Jasmyne Poe MD [address] [place] [phone] PCP - General 01/07/13 documented as of this encounter
--- OUTSIDE RECORDS SUMMARY | 2023-12-03 02:08 | XMS_ITS | Encounter Summary ---
Author Organization [facility] Address [address] [place] [address] Care Team Providers Care Head Of Acquisitions Name Role Phone Jasmyne Poe MD Primary Care Provider + Reason for Visit * Reason Comments Foot Problem Blister ontop of rig ht foot. Encounter Details Date Type Department Care Team (Late st Contact Info) Description 12/10/2018 15:45 EDT Office Visit [facility] Adult Primary Care - [address] [address] Sweetie Fajardo, KAYY [address] [place] [phone] Wound of left foot (Primary Dx); Swelling of left foot; Fatigue, unspecified type; Arthralgia, unspecified joint Discharge Disposition: Auto Discharge Social History Tobacco [...] Sign Reading Time Taken Comments Blood Pressure 156/74 12/10/2018 1601 EDT Pulse 64 12/10/2018 1601 EDT Temperature 36.8 ??C (98.3 ??F) 12/10/2018 1601 EDT Respiratory Rate 16 12/10/2018 1601 EDT Oxygen Saturation - - Inhaled Oxygen Concentration - - Weight - [...] as of this encounter Discharge Diagnoses Diagnosis R53.83 Other fatigue-R53.83[ICD-10-CM] documented in this encounter Ordered Prescriptions Prescription Sig Dispensed Refills Start Date End Da te cephALEXin (KEFLEX) 500 mg capsule Take 1 Cap by mouth 4 times daily. 20 Cap 12/11/2018 05/26/2019 doxycycline (VIBRA-TABS) 100 mg tablet Take 1 Tab by mouth 2 times daily. 20 Tab 12/10/2018 12/11/2018 documented in this encounter Discharge Disposition Disposition Code Departure Means Destination Auto Discharge documented in this encounter Progress Notes * Sweetie Fajardo Pa-C 12/10/2018 1545 EDT Images from the original note were not included. Patient ID: Kirsten Almaguer is a 53 y.o. female patient of Jasmyne Poe Chief Complaint: Foot Problem (Blister ontop of right foot.) History of present Illness (HPI): Kirsten presents for a wound and swelling of her left foot. 5 days ago she spent a day walking around in flip-flops in [place] and developed a small blister on the top of her foot. The blister unroofed in the past 2 days has gradually been enlarging and she has had swelling of the entire foot spreading to the ankle as well. It is painful with walking. She denies fevers or chills. She had a similar issue foot swelling related to a persistent cellulitis of her left foot last month that requiredmultiple courses of antibiotics. 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 She also brings up that for the past 5 years or so she has been experiencing intermittent episodes of severe fatigue, myalgias, weakness and joint stiffness. The episodes have been increasing in frequency and now occur 1-2 times a week and last 24 to 48 hours. She has not been able to identify a trigger. She does not have associated swelling or redness in her joints, or prominent morning stiffness. The joint pains do not to localize to proximal or distal joints. She has never had this worked upin the past due to being hesitant to bringing up, but now she wonders if her back to back foot infections are related She denies a family history of autoimmune disease. Patient Active Problem List Diagnosis ??? Osteoarthritis ??? Allergy to penicillin ??? Anxiety ??? Acquired hypothyroidism ??? PAF (paroxysmal atrial fibrillation) ([facility]) ??? Obesity, Class I, BMI 30-34.9 Current Outpatient Medications: aspirin 325 mg tablet Take 325 mg by mouth daily. B Complex Vitamins (VITAMIN B COMPLEX) tablet Take 1 Each by mouth daily. cephALEXin (KEFLEX) 500 mg capsule Take 1 Cap by mouth 4 times daily. cholecalciferol, Vitamin D3, 2,000 unit tablet Take by mouth. DILTiazem (CARDIZEM CD) 240 mg ER capsule Take 1 Cap by mouth daily. ibuprofen (MOTRIN) 200 mg tablet Take 200 mg by mouth as needed. levomefolate calcium (L-METHYLFOLATE ORAL) Take 15 mg by mouth daily. levothyroxine (SYNTHROID) 50 mcg tablet Take 1 Tab by mouth daily. Magnesium 250 mg tablet Take 1 Each by mouth daily. melatonin 3 mg tablet Take by mouth at bedtime. MULTIVIT &MINERALS/FERROUS FUM (MULTI VITAMIN ORAL) Take by mouth. Allergies Allergen Reactions ??? Penicillins Anaphylaxis Tolerates cephalexin ??? Sulfa (Sulfonamide Antibiotics) Rash Review of Systems: Review of Systems Constitutional: Positive for malaise/fatigue. Negative for chills and fever. Respiratory: Negative for shortness of breath. Cardiovascular: Positive for leg swelling. Negative for chest pain. Gastrointestinal: Negative for abdominal pain and diarrhea. Genitourinary: No urine discoloration Musculoskeletal: Positive for joint pain and myalgias. Skin: Negative for rash. Objective: Physical Examination: BP (!) 156/74 Pulse 64 Temp 36.8 ??C (98.3 ??F) (Tympanic) Resp 16 Constitutional: Well developed, well nourished, no acute distress, non-toxic appearance. Extremities: Left foot is swollen with 1+ pitting edema to the ankle without erythema or warmth. There is a shallow ulceration on the dorsolateral aspect with surrounding localized erythema. PROBLEM: Assessment & Plan: Ulceration of left foot with associated edema and localized erythema. At this point it is unclear if this is an early cellulitis or an inflammatory reaction to the wound itself. Due to her multiple rounds of antibiotics, at this point I think it is safe to use the [id number]-[id number] approach and if the erythema starts to expand she should start antibiotics. She is aware of the signs to look for. A wound culture was taken today, doxycycline was sent in now since the weekend is approaching. Advised Tylenol, rest and leg elevation for supportive treatment. Advised keeping wound clean and covered with antibiotic ointment and a bandage. Due to this being the second episode of a significant reaction to a small wound, and her intermittent fatigue and myalgia/arthralgia episodes, we will screen for several conditions including hypothyroidism, diabetes, lupus, Lyme disease, and anemia. A CRP will also be assessed. She agrees with a rheumatology referral if these results are nondiagnostic or have positive autoimmune markers.. Update: culture positive for GBH Strep. Prescribed cephalexin to take instead of doxycyline. Kirsten was seen today for foot problem. Diagnoses and all orders for this visit: Wound of left foot - BACTERIAL CULTURE/SMEAR, OTHER - Cancel: THYROID CASCADE; Future - Cancel: COMPLETE BLOOD COUNT AND DIFFERENTIAL; Future - Cancel: HEMOGLOBIN A1C; Future - COMPLETE BLOOD COUNT AND DIFFERENTIAL; Future - C REACTIVE PROTEIN; Future - ANTI NUCLEAR AB (ALAINA), IFA; Future - HEMOGLOBIN A1C; Future - LYME AB; Future Swelling of left foot Fatigue, unspecified type - Cancel: C REACTIVE PROTEIN; Future - Cancel: ANTI NUCLEAR AB (ALAINA), IFA; Future - Cancel: LYME AB; Future - Cancel: HEMOGLOBIN A1C; Future - THYROID CASCADE; Future - COMPLETE BLOOD COUNT AND DIFFERENTIAL; Future - C REACTIVE PROTEIN; Future - ANTI NUCLEAR AB (ALAINA), IFA; Future - HEMOGLOBIN A1C; Future - LYME AB; Future Arthralgia, unspecified joint - Cancel: C REACTIVE PROTEIN; Future - Cancel: ANTI NUCLEAR AB (ALAINA), IFA; Future - Cancel: LYME AB; Future - COMPLETE BLOOD COUNT AND DIFFERENTIAL; Future - C REACTIVE PROTEIN; Future - ANTI NUCLEAR AB (ALAINA), IFA; Future - HEMOGLOBIN A1C; Future - LYME AB; Future Other orders - levomefolate calcium (L-METHYLFOLATE ORAL); Take 15 mg by mouth daily. - Discontinue: doxycycline (VIBRA-TABS) 100 mg tablet; Take 1 Tab by mouth 2 times daily. - cephALEXin (KEFLEX) 500 mg capsule; Take 1 Cap by mouth 4 times daily. Pt Ed: - There are no on file for this visit. Portions of this document may have been prepared with speech recognition software or keyboard data entry operator techniques. Minor irregularities or keyboarding misprints may be present. documented in this encounter Plan of Treatment Upcoming Encounters Date Type Department Care Team (Late st Contact Info) Description 05/20/2024 14:45 EST Office Visit [facility] Adult Primary Care - [address] [address] Jasmyne Poe MD [address] [place] [phone] documented as of this encounter Procedures Procedure Name Priority Date/Time Associated Diagnosis Comments BACTERIAL CULTURE/SMEAR Routine 12/10/2018 16:18 EDT Wound of left foot documented in this encounter Results * BACTERIAL CULTURE/SMEAR, OTHER (12/10/2018 16:18 EDT) Gram Smear Result Few Polys 12/10/2018 22:[address] [facility] Gram Smear Result No bacteria seen 12/10/2018 22:[address] [facility] Result Few STREPTOCOCCUS, BETA HEMOLYTIC GROUP B (STREPTOCOCCUS AGALACTIAE) Penicillin and ampicillin are drugs of choice for treatment of beta hemolytic streptococcal infections. 12/11/2018 15:[address] [facility] Specimen of unknown material (specimen) SPECIMEN FROM SKIN / Unknown 12/10/2018 16:18 EDT 12/10/2018 21:06 EDT Comment:Specimen submitted o n a flocked swab. Sweetie Fajardo PA-C MICROBIOLOGY - GENERAL ORDERABLES [facility] [address] [place] [address] documented in this encounter Visit Diagnoses Diagnosis Wound of left foot- Primary Swelling of left foot Fatigue, unspecified type Arthralgia, unspecified joint documented in this encounter Discontinued Medications Medication Sig Discontinue Reason Start Date End Da te sertraline (ZOLOFT) 25 mg tablet Take 1 Tab by mouth daily. 05/25/2018 12/10/2018 doxycycline (VIBRA-TABS) 100 mg tablet Take 1 Tab by mouth 2 times daily. Reorder 11/04/2018 12/10/2018 doxycycline (VIBRA-TABS) 100 mg tablet Take 1 Tab by mouth 2 times daily. Order modification 12/10/2018 12/11/2018 documented as of this encounter Historical Medications * This list may reflect changes made after this encounter. Medication Sig Dispensed Refills Start Date End Date levomefolate calcium (L-METHYLFOLATE ORAL)Indications:depressi on,and anxiety Take 15 mg by mouth daily. 10/04/2020 added in this encounter Care Teams Head Of Acquisitions Relationship Specialty Start Date End Date Jasmyne Poe MD [address] [place] [phone] PCP - General 01/07/13 documented as of this encounter
--- OUTSIDE RECORDS SUMMARY | 2023-12-03 02:08 | XMS_ITS | Encounter Summary ---
Author Organization [facility] Address [address] [place] [address] Care Team Providers Care Certified Drug Counselor Name Role Phone Jasmyne Poe MD Primary Care Provider + Reason for Visit * Reason Onset Date Comments Follow-up 11/20/2018 Encounter Details Date Type Department Care Team (Late st Contact Info) Description 11/20/2018 Telephone [facility] Adult Primary Care - [address] [phone] Fawn Claire LPN Follow-up Social History Tobacco Use Types Packs/Day Years [...] Telephone Encounter - Fawn Claire LPN - 11/20/2018 1325 EDT LM for pt per Dr. Poe's instructions. Following up on rash and to let her know the MRI was cancelled. documented in this encounter Plan of Treatment Upcoming Encounters Date Type Department Care Team (Late st Contact Info) Description 05/20/2024 14:45 EST Office Visit [facility] Adult Primary Care [address] [address] Jasmyne Poe MD [address] [place] [phone] documented as of this encounter Visit Diagnoses Not on filedocumented in this encounter Care Teams Certified Drug Counselor Relationship Specialty Start Date End Date Jasmyne Poe MD [address] [place] [phone] PCP - General 01/07/13 documented as of this encounter
--- OUTSIDE RECORDS SUMMARY | 2023-12-03 02:08 | XMS_ITS | Encounter Summary ---
Author Organization [facility] Address [address] [place] [address] Care Team Providers Care Mount Loader Name Role Phone Jasmyne Poe MD Primary Care Provider + Reason for Visit * Reason Comments Other Encounter Details Date Type Department Care Team (Late st Contact Info) Description 01/20/2019 [facility] Adult Primary Care - [address] [address] Jasmyne Poe MD [address] [place] [phone] Other Social History Tobacco Use Types [...] Visit [facility] Adult Primary Care - [address] [phone] Jasmyne Poe MD [address] [place] [phone] documented as of this encounter Visit Diagnoses Not on filedocumented in this encounter Care Teams Mount Loader Relationship Specialty Start Date End Date Jasmyne Poe MD [address] [place] [phone] PCP - General 01/07/13 documented as of this encounter
--- OUTSIDE RECORDS SUMMARY | 2023-12-03 02:09 | XMS_ITS | Encounter Summary ---
Author Organization [facility] Address [address] [place] [address] Care Team Providers Care Cold Meat Cook Name Role Phone Jasmyne Poe MD Primary Care Provider + Reason for Visit * Reason Comments Shoulder Pain right Encounter Details Date Type Department Care Team (Late st Contact Info) Description 01/19/2014 11:00 EDT Office Visit [facility] Sports Medicine Program - [address] [address] Andrew Norton MD [address] [place] [phone] Rotator cuff injury (Primary Dx) Social History Tobacco Use Types [...] Sign Reading Time Taken Comments Blood Pressure - - Pulse - - Temperature - - Respiratory Rate - - Oxygen Saturation - - Inhaled Oxygen Concentration - - Weight 84.4 kg (186 lb) 01/19/2014 1057 EDT Height 175.3 cm (5' 9) 01/19/2014 1057 EDT Body Mass Index 27.47 01/19/2014 1057 EDT documented in this encounter Progress Notes * MANAGER TAX, SCAN 2 - 01/31/2014 1530 EDT * Andrew Norton MD - 01/19/2014 1245 EDT PROBLEM: Right shoulder pain. 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 In 2012, she was doing her a favor by mowing the lawn. She pulled the lawnmower cord and felt immediate pain in her right shoulder. She points to the anterior aspect as the source of her pain. She has given this time to see if it got better. Most recently she was seen by Mr Rios in December of this year who evaluated her MRI. She is here today for my evaluation. Ms Almaguer notes that initially she had pain in the front of her shoulder, radiating into the elbow;however, approximately 2 weeks ago, she experienced exquisite pain in her arm and she points to themuscle belly of the biceps. Upon awakening the next morning her pain was better and she has had significant relief of her discomfort since then. She now finds that she can place her arms in positionsthat she could not previously. Now, she points to the deltoid as the source of her primary discomfort. She describes the discomfort as an ache exacerbated with overhead activities, reaching out to the side, pulling up the covers and reaching above shoulder level. She also has pain at night. She has crunching or grinding. She has some neck stiffness and points to the trapezius as the source of that pain. She denies any weakness, numbness or tingling in her upper extremity. After the episode two weeks ago, she denies any bruising or deformity about the arm. She takes ibuprofen 800 mg at night. She has been seen at [facility] in [facility] for her physical therapy. She has had no injections. The rest of her past medical history, social history, medications and allergies are noted in [facility]. OBJECTIVE: Examination of the right shoulder girdle shows lateralization of the scapula without dyskinesis. Active elevation 170, scapular abduction full, external rotation 70 degrees bilaterally, internal rotation to the gluteal cleft versus T8. She lacks 50 degrees of horizontal adduction. There is a mild pectoralis minor contracture. There is no coracoid tenderness. There is discomfort with resisted external rotation. Resisted scapular abduction is 5/5 strength without pain. Her abdominal press test is uncomfortable. I cannot elicit a bulge on performing Yergason's maneuver. There is no tenderness about the muscle belly of the long head of the biceps or along the tendon itself. There is minor tenderness about the bicipital groove. Otherwise, the supraspinatus, AC joint and supraclavicular fossa are nontender. There is no palpable subacromial crepitus. Range of motion of the cervical spine is full and pain free. Her neurologic exam shows intact motorand sensation C6 through T1. Review of her MR without contrast dated 12/09/2013 shows intact subscapularis. The long head of the biceps tendon appears to be subluxed medially as it enters the bicipital groove. This is best seen on coronal image 4. There is a significant partial-thickness tear of the supraspinatus. It appears as though layers 2 through 5 are disrupted leaving only layer 1 still attached to the greater tuberosity along essentially the entire width of the superior facet. The rest of the tendon is retracted to the level of the midhumeral head. The infraspinatus is within normal limits. The teres minor is significant for what appears to be neurogenic atrophy, best seen on the sagittal images. There is no atrophy of the supraspinatus or subscapularis. The glenoid labrum appears to be well attached along its entire circumference. The humeral and glenoid articular surfaces are within normal limits. There are minor AC joint changes. ASSESSMENT: Initially, I thought that Ms Almaguer had ruptured the long head of her biceps tendon; however, there is no obvious bulge. It could be that the tendon is caught proximally and not retracted. 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 One would be continuing with physical therapy to address the tight posterior capsule and internal rotation deficit, pectoralis minor contracture, periscapular strength as well as rotator cuff strength. The other option would be to addressthis surgically. Given the fact that she is having minimal symptoms and is much more comfortable today, I think continuing with a nonoperative course of treatment is very reasonable. She is in agreement with this. I was quite clear, however, in telling Ms Almaguer that should her symptoms increase or change in anyway, we need to see her back as this could indicate that her rotator cuff is completely ruptured and now may be more amenable to a surgical solution. PLAN: She will work on her physical therapy. I gave her a note identifying the things she needs to address. I will see her back in approximately 6 weeks for followup. documented in this encounter Plan of Treatment Upcoming Encounters Date Type Department Care Team (Late st Contact Info) Description 05/20/2024 14:45 EST Office Visit [facility] Adult Primary Care [address] [address] Jasmyne Poe MD [address] [place] [phone] documented as of this encounter Visit Diagnoses Diagnosis Rotator cuff injury- Primary Injury, other and unspecified, shoulder and upper arm documented in this encounter Care Teams Cold Meat Cook Relationship Specialty Start Date End Date Jasmnye Poe MD [address] [place] [phone] PCP - General 01/07/13 documented as of this encounter
--- OUTSIDE RECORDS SUMMARY | 2023-12-03 02:09 | XMS_ITS | Encounter Summary ---
Author Organization [facility] Address [address] [place] [address] Care Team Providers Care Ichthyologist Name Role Phone Jasmyne Poe MD Primary Care Provider + Reason for Visit * Reason Onset Date Comments Results 12/10/2013 Encounter Details Date Type Department Care Team (Late st Contact Info) Description 12/10/2013 Telephone [facility] Adult Primary Care - [address] [address] Jasmyne Poe MD [address] [place] [phone] Results Social History Tobacco Use Types Packs/Day Years [...] Telephone Encounter - Jasmyne Poe MD - 12/10/2013 2103 EDT Spoke with patient and discussed results. She agrees with Ortho referral. * Telephone Encounter - Sergio Sorenson III - 12/10/2013 [address] Poe's call. Please call back. documented in this encounter Plan of Treatment Upcoming Encounters Date Type Department Care Team (Late st Contact Info) Description 05/20/2024 14:45 EST Office Visit [facility] Adult Primary Care - [address] [phone] Jasmyne Poe MD [address] [place] [phone] documented as of this encounter Visit Diagnoses Not on filedocumented in this encounter Care Teams Ichthyologist Relationship Specialty Start Date End Date Jasmyne Poe MD [address] [place] [phone] PCP - General 01/07/13 documented as of this encounter
--- OUTSIDE RECORDS SUMMARY | 2023-12-03 02:09 | XMS_ITS | Encounter Summary ---
Author Organization [facility] Address [address] [place] [address] Care Team Providers Care Dynamite Packing Machine Feeder Name Role Phone Jasmyne Poe MD Primary Care Provider + Reason for Visit * Reason Onset Date Comments No Show 03/10/2014 Encounter Details Date Type Department Care Team (Late st Contact Info) Description 03/10/2014 Telephone [facility] Sports Medicine Program - [address] [place] [address] Andrew Norton MD [address] [place] [phone] No Show Social History Tobacco Use Types Packs/Day Years [...] encounter Miscellaneous Notes * Telephone Encounter - Darby Laureano - 03/10/2014 1034 EST Patient no showed for their appointment with on 03.09.14. I called and left message. documented in this encounter Plan of Treatment Upcoming Encounters Date Type Department Care Team (Late st Contact Info) Description 05/20/2024 14:45 EST Office Visit [facility] Adult Primary Care - [address] [phone] Jasmyne Poe MD [address] [place] [phone] documented as of this encounter Visit Diagnoses Not on filedocumented in this encounter Care Teams Dynamite Packing Machine Feeder Relationship Specialty Start Date End Date Jasmyne Poe MD [address] [place] [phone] PCP - General 01/07/13 documented as of this encounter
--- OUTSIDE RECORDS SUMMARY | 2023-12-03 02:09 | XMS_ITS | Encounter Summary ---
Author Organization [facility] Address [address] [place] [address] Care Team Providers Care Special Effects Designer Name Role Phone Unavailable Primary Care Provider Unavailabl e Encounter Details Date Type Department Care Team (Late st Contact Info) Description 01/19/2010 Results Only [facility]- [facility] [phone] Maurice Angeles MD [address] [place] [address] Social History Tobacco Use Types Packs/Day Years Used Date Smoking Tobacco: Never Assessed Sex and Gender Information Value Date Recorded Sex Assigned at Not on file Gender Identity Female 06/02/2019 15:13 EST Sexual Orientation Not on file documented as of this encounter Plan of Treatment Upcoming Encounters Date Type Department Care Team (Late st Contact Info) Description 05/20/2024 14:45 EST Office Visit [facility] Adult Primary Care - [address] [address] Jasmyne Poe MD [address] [place] [phone] documented as of this encounter Procedures Procedure Name Priority Date/Time Associated Diagnosis Comments CYTOPATHOLOGY Routine 01/19/2010 0:00 EDT documented in this encounter Results * CYTOPATHOLOGY (01/19/2010 0:00 EDT) Pathology Report: CYTOPATHOLOGY REPORT ? Reports generated via electronic interface contain original data; ? however they are lacking the format of the original report. ? Caution should be taken when reading/interpreti ng unformatted reports. ? Name: ? KIRSTEN ALMAGUER ? Accession #: ? [id number] ? : ? 1965 (Age: 44) ??F ?Collect Date: ? 01/19/2010 ? Location: ? [facility] ? Receive Date: ? 01/22/2010 ? Provider: ?MAURICE ANGELES MD ? Copy to: ? Specimen/Source: ?Pap Test, Cervix/Endocervix, ThinPrep Imaging System ? with manual evaluation ? Last Menstrual Period: ? 9/22/10 ? Other: ? HPVA - HPV testing requested if ASC-US on the current ThinPrep Pap test. ? SPECIMEN ADEQUACY ? Satisfactory for Evaluation ? - transformation zone component present ? GENERAL CATEGORIZATION ? Negative for Intraepithelial Lesion or Malignancy ? INTERPRETATION ? Reactive cellular changes associated with inflammation present (includes ?? repair). ? Document reviewed and electronically signed by: ? JULISSA EILEEN CINTHIA MD ? Report Date: ??01/26/2010 13:30 ? End of Report ? [facility] 01/19/2010 01/22/2010 Maurice Angeles MD PATHOLOGY ORDERABLES [facility] [address] [place] [address] documented in this encounter Visit Diagnoses Not on filedocumented in this encounter
--- OUTSIDE RECORDS SUMMARY | 2023-12-03 02:09 | XMS_ITS | Encounter Summary ---
Author Organization [facility] Address [address] [place] [address] Care Team Providers Care Usability Strategist Name Role Phone Jasmyne Poe MD Primary Care Provider + Reason for Visit * Reason Comments New Patient Visit Encounter Details Date Type Department Care Team (Latest Contact Info) Description 01/07/2013 10:00 EDT Office Visit [facility] Adult Primary Care - [address] [address] Jasmyne Poe MD [address] [place] [phone] Screening for hyperlipidemia (Primary Dx); History of gestational diabetes; Screening for cervical cancer Discharge Disposition: Auto Discharge Social History Tobacco [...] Sign Reading Time Taken Comments Blood Pressure 132/78 01/07/2013 1003 EDT Pulse 76 01/07/2013 1003 EDT Temperature 36.9 ??C (98.5 ??F) 01/07/2013 1003 EDT Respiratory Rate 12 01/07/2013 1003 EDT Oxygen Saturation - - Inhaled Oxygen Concentration - - Weight 96.2 kg (212 lb) 01/07/2013 1003 EDT Height 175.3 cm (5' 9) 01/07/2013 1003 EDT Body Mass Index 31.31 01/07/2013 1003 EDT documented in this encounter Patient Instructions * Patient Instructions* Jasmyne Poe MD - 01/07/2013 11:02 EDT Fasting blood work Mammogram Follow-up in one to two years documented in this encounter Discharge Disposition Disposition Code Departure Means Destination Auto Discharge documented in this encounter Progress Notes * Jasmyne Poe MD - 01/07/2013 1033 EDT Subjective: Patient ID: Kirsten Almaguer is an 47 y.o. female. Chief Complaint Patient presents with ??? New Patient Visit HPI: here to establish care. She moved to the area from [place] about 5 years ago and now lives in the [facility]. 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 Her health concerns: her weight is one of them. She exercises regularly but knows that she needs tomake dietary changes and knows exactly what needs to be changed. Her mother of lung cancer with a very sudden decline and she is concerned about her exposure to second hand smoke as a child. Lastly had noticed about 6 weeks of intermittent right lower quadrant pain. There did not seem to be a pattern to the pain but it disappeared with her last period and has not reocurred. Patient Active Problem List Diagnoses ??? Osteoarthritis ??? Hypertension ??? Obesity Past Medical History Diagnosis Date ??? Osteoarthritis ??? Hypertension ??? Palpitations ??? Obesity ??? Gestational diabetes 2002 diet and exercise only ??? Anxiety 2002 on zoloft in the past Current Outpatient Prescriptions on File Prior to Visit Medication Sig Dispense Refill ??? sertraline (ZOLOFT) 50 mg tablet Take 50 mg by mouth daily. ? ? MULTIVIT &MINERALS/FERROUS FUM (MULTI VITAMIN ORAL) Take by mouth. Allergies Allergen Reactions ??? Penicillins Anaphylaxis ??? Sulfa (Sulfonamide Antibiotics) Rash Social History Substance Use Topics ??? Smoking status: Never Smoker ??? Smokeless tobacco: Never Used ??? Alcohol Use: No Review of Systems Constitutional: Negative for fever, chills, weight loss and malaise/fatigue. Eyes: Negative for blurred vision and double vision. Respiratory: Negative for cough, shortness of breath and wheezing. Cardiovascular: Negative for chest pain and palpitations. Gastrointestinal: Positive for abdominal pain (right lower quadrant pain for 6 weeks). Negative forheartburn, nausea, vomiting, diarrhea, constipation, blood in stool and melena. Genitourinary: Negative for dysuria and hematuria. Musculoskeletal: Positive for joint pain. Skin: Negative for rash. Neurological: Negative for dizziness, tingling and headaches. Endo/Heme/Allergies: Does not bruise/bleed easily. Psychiatric/Behavioral: Negative for depression. The patient is not nervous/anxious and does not have insomnia. Objective: BP 132/78 Pulse 76 Temp(Src) 36.9 ??C (98.5 ??F) (Tympanic) Resp 12 Ht 175.3 cm (69) Wt 96.163 kg (212 lb) BMI 31.31 kg/m2 LMP 01/01/2013 Physical Exam General: well-developed, well-nourished woman HEENT: [...] masses. No hepatomegaly. No abdominal bruit. : external genitalia normal and without lesions. Vaginal canal is normal. Cervix was visualized and normal in appearance. On bimanual exam, there was no adnexal tenderness or mass appreciated. Extremities: no cyanosis or edema Skin: no rashes Assessment: 47 year old woman who is here to establish care. She is in good health except for obesity and will start dietary changes. Plan: 1. She is confident she is up to date with immunizations and has asked for records. 2. She will call if the right lower quadrant pain reoccurs and I will re- evaluate at that time. Herexam is normal today. 3. Fasting blood work for lipids 4. Blood work for hemoglobin A1C because of her history of gestational diabetes. 5. Mammogram documented in this encounter Plan of Treatment Upcoming Encounters Date Type Department Care Team (Late st Contact Info) Description 05/20/2024 14:45 EST Office Visit [facility] Adult Primary [facility] - [address] [place] [address] Jasmyne Poe MD [address] [place] [phone] documented as of this encounter Visit Diagnoses Diagnosis Screening for hyperlipidemia- Primary Screening for lipoid disorders History of gestational diabetes Personal history of gestational diabetes Screening for cervical cancer Screening for malignant neoplasm of the cervix documented in this encounter Discontinued Medications Medication Sig Discontinue Reason Start Date End Da te sertraline (ZOLOFT) 50 mg tablet Take 50 mg by mouth daily. 01/07/2013 documented as of this encounter Historical Medications * This list may reflect changes made after this encounter. Medication Sig Dispensed Refills Start Date End Date cholecalciferol, Vitamin D3, 2,000 unit tablet Take by mouth. Magnesium 250 mg tablet Take 1 Each by mouth daily. Patient states she takes 500 mg daily ibuprofen (MOTRIN) 200 mg tablet Take 200 mg by mouth as needed. 11/24/2019 B Complex Vitamins (VITAMIN B COMPLEX) tablet Take 1 Each by mouth daily. 03/23/2022 GLUC/CHND/OM3/DHA/EPA/FIS H/STR (GLUCOSAMINE CHONDROITIN PLUS ORAL) Take 1 Each by mouth daily. 10/15/2013 added in this encounter Care Teams Usability Strategist Relationship Specialty Start Date End Date Jasmyne Poe MD [address] [place] [phone] PCP - General 01/07/13 documented as of this encounter
--- OUTSIDE RECORDS SUMMARY | 2023-12-03 02:09 | XMS_ITS | Encounter Summary ---
Author Organization [facility] Address [address] [place] [address] Care Team Providers Care Microbiology Lab Manager Name Role Phone Jasmyne Poe MD Primary Care Provider + Reason for Visit * Reason Comments Hypothyroidism Follow up Encounter Details Date Type Department Care Team (Latest Contact Info) Description 05/21/2017 10:30 EST Office Visit [facility] Adult Primary Care - [address] [address] Jasmyne Poe MD [address] [place] [phone] History of gestational diabetes (Primary Dx); Screening for HIV (human immunodeficiency virus); Vitamin D deficiency; Encounter for preventive health examination; Depression screen; Anxiety; Acquired hypothyroidism Discharge Disposition: Auto Discharge Social History Tobacco [...] Sign Reading Time Taken Comments Blood Pressure 129/60 05/21/2017 1025 EST Pulse 54 05/21/2017 1025 EST Temperature 35.8 ??C (96.5 ??F) 05/21/2017 1025 EST Respiratory Rate 14 05/21/2017 1025 EST Oxygen Saturation - - Inhaled Oxygen Concentration - - Weight 88.5 kg (195 lb) 05/21/2017 1025 EST Height 175.3 cm (5' 9) 05/21/2017 1025 EST Body Mass Index 28.8 05/21/2017 1025 EST documented in this encounter Functional Status Functional Status Response Date of Assess ment Because of a physical, menta l, or emotional condition, does this person have difficulty doing errands alone such as visiting a doctor's office or shopping? No 05/21/2017 Cognitive Status Response Date of Assessm ent Because of a physical, menta l, or emotional condition, does this person have serious difficulty concentrating, remembering, or making decisions? No 05/21/2017 documented as of this encounter Discharge Diagnoses Diagnosis E55.9 Vitamin D deficiency, unspecified-E55.9[ICD-10-CM] documented in this encounter Patient Instructions * Patient Instructions* Jasmyne Poe MD - 05/21/2017 10:30 EST Mammogram Colonoscopy Blood work Check thyroid once a year Follow-up in one to two years. documented in this encounter Discharge Disposition Disposition Code Departure Means Destination Auto Discharge documented in this encounter Progress Notes * Jasmyne Poe MD - 05/21/2017 1030 EST Subjective: Patient ID: Kirsten Almaguer is an 52 y.o. female. Chief Complaint Patient presents with ??? Hypothyroidism Follow up HPI : here for a preventive visit. Patient profile: she is with three children. 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 She does not smoke or drink alcohol. She has been working out on the [employer] national sales trainer several times a week. She was seen in February for an episode of palpitations and chest pain. This was felt to be due to anxiety. She has had no further episodes since then and has been feeling well. She takes a small dose of sertraline 25 mg daily and thinks that this dose is adequate for her chronic anxiety. She has an insurance form with her today for work and a hemoglobin A1C is requested due to history of gestational diabetes. She has been successful losing weight over the past year and would like to lose about fifteen more pounds. Depression Screen: PHQ-2: Over the past two weeks, how often has the patient been bothered by any of the following problems? Not at all Several days More than 1/2 of the days Nearly every day 0 1 2 3 Little interest or pleasure in doing things: X Feeling down, depressed, or hopeless: X Total point score (cutoff 3): 0 Patient Active Problem List Diagnosis ??? Osteoarthrosis ??? Allergy to penicillin ??? Anxiety Past Medical History: Diagnosis Date ??? Anxiety 2003 on zoloft in the past ??? Gestational diabetes 2001 diet and exercise only ??? Hypertension with episdes of anxiety in the past ??? Obesity ??? Osteoarthritis ??? Palpitations ??? Rotator cuff injury 01/19/2014 Right shoulder Past Surgical History: Procedure Laterality Date ??? SECTION 1985 ??? KNEE ARTHROSCOPY 2002 right knee Current Outpatient Prescriptions on File Prior to Visit Medication Sig Dispense Refill ??? B Complex Vitamins (VITAMIN B COMPLEX) tablet Take 1 Each by mouth daily. ??? cholecalciferol, Vitamin D3, 2,000 unit tablet Take by mouth. ??? ibuprofen (MOTRIN) 200 mg tablet Take [...] suspension Instructions mailed once procedure scheduled. Questions: [facility] Gastroenterology: [phone] or GI Doctor's Office. (Patient not taking: Reported on 05/21/2017) 4000 mL 0 ??? sertraline (ZOLOFT) 25 mg tablet Take 25 mg by mouth daily. No current facility-administered medications on file prior to visit. Allergies Allergen Reactions ??? Penicillins Anaphylaxis ??? Sulfa (Sulfonamide Antibiotics) Rash Social Social History Substance Use Topics ??? Smoking status: Never Smoker ??? Smokeless tobacco: Never Used ??? Alcohol use No Family History Problem Relation Age of Onset ??? Lung Cancer Mother 63 ??? Alcohol Abuse Father cause of @ 58yo ??? No Known Brother ??? Diabetes Maternal Grandmother ??? Hypertension Maternal Grandmother ??? Diabetes Maternal Uncle ??? Heart Disease Maternal Grandfather ??? Lymphoma Maternal Grandfather Hodgkin's lymphoma ??? Heart Surgery Other 50 grandmother ??? Heart Attack Other 60 grandfather- MS ??? Leukemia Son AML Review of Systems Constitutional: Positive for diaphoresis (menopausal). Negative for fever and malaise/fatigue. Eyes: Negative for blurred vision and double vision. Respiratory: Negative for cough and shortness of breath. Cardiovascular: Negative for chest pain and palpitations (none since the episode in February). Gastrointestinal: Negative for abdominal pain, blood in stool, diarrhea, heartburn, melena and nausea. Genitourinary: Negative for dysuria and hematuria. Musculoskeletal: Positive for joint pain (knees). Skin: Negative for rash. Neurological: Negative for dizziness, tingling and headaches. Psychiatric/Behavioral: Negative for depression. The patient is not nervous/anxious. Objective: BP 129/60 Pulse 54 Temp 35.8 ??C (96.5 ??F) (Tympanic) Resp 14 Ht 175.3 cm (69) Wt 88.5 kg (195 lb) LMP 05/20/2017 BMI 28.8 kg/m2 Physical Exam General: well-developed, well-nourished woman HEENT: oral mucosa and pharynx are normal and without lesions. Tympanic membranes are visualized with a good light reflex. Sclerae are clear and non-icteric. Neck: no lymphadenopathy or thyromegaly Breasts: exam deferred due to recent HOUSE MANAGER exam Lungs: clear in all lung negrete Cardiac: regular without murmur or gallop Abdomen: soft, non-tender, no masses. No hepatomegaly. No abdominal bruit. : deferred to recent HOUSE MANAGER exam Extremities: no cyanosis or edema Skin: no rashes Results for orders placed or performed in visit on 03/12/17 TSH Result Value Ref Range TSH 1.67 0.47 - 4.68 uIU/ml LIPID PROFILE (INCLUDES CHOLESTEROL, TRIGLYCERIDES, HDL, LDL) Result Value Ref Range Cholesterol 149 mg/dl Triglycerides 94 mg/dl HDL 42 mg/dl LDL, Calculated 88 mg/dl Chol/HDL Ratio 3.5 Fasting? YES Non HDL Cholesterol 107 mg/dl COMPREHENSIVE METABOLIC PANEL (CMP) Result Value Ref Range Potassium 4.2 3.5 - 5.0 mEq/L Sodium 142 136 - 145 mEq/L Chloride 104 96 - 110 mEq/L CO2 31 22 - 32 mEq/L Total Alkaline Phosphatase 47 38 - 126 U/L Bilirubin, Total 0.6 <1.4 mg/dl AST 15 15 - 46 U/L ALT 27 <53 U/L Albumin 4.1 3.4 - 4.9 g/dl Total Protein 6.5 6.3 - 8.2 g/dl Creatinine 0.63 0.52 - 1.04 mg/dl GFR, Calculated 105 >60 ml/min/1.73m2 BUN 15 10 - 26 mg/dl Calcium 8.7 8.5 - 10.5 mg/dl Calculated Calcium 8.6 8.5 - 10.5 mg/dl Glucose, Serum 94 70 - 100 mg/dl Fasting? YES Assessment: 52-year-old woman here for a preventive visit. She is up-to-date with recommended immunizations. Immunization History Administered Date(s) Administered ??? MMR Vaccine SQ 01/03/2009 ??? PPD Skin Test Placement 12/20/2008, 01/03/2009 ? ? Tdap Vaccine =>7YO IM 12/20/2008 Breast cancer screening: she is due and was encouraged again to schedule this. Cervical cancer screening: she has an ASGUS with negative HPV in 2016. She says she was seen by hergynecologist recently and told that a PAP was not due again until next year. I'm not familiar with the rest of her HOUSE MANAGER history so I will defer to her HOUSE MANAGER regarding cervical cancer screening. Colon cancer screening: she still has to schedule her colonoscopy . Fasting lipids were normal. She is taking a vitamin D supplement. I will check a vitamin D level due to her history of vitamin D deficiency. Health habits are good. Discussed Advanced Directives. 1. History of gestational diabetes: Hemoglobin A1c to be checked. 2. Anxiety: She feels comfortable on her current dose of sertraline. If she has future episodes of panic attacks, she will consider increasing the dose to 50. 3. Hypothyroidism: TSH is within normal range on levothyroxine 50mcg so will add hypothyroidism to her problem list. I don't have a record of previous thyroid testing. Plan: As above Follow-up in one year. documented in this encounter Plan of Treatment Upcoming Encounters Date Type Department Care Team (Late st Contact Info) Description 05/20/2024 14:45 EST Office Visit [facility] Adult Primary Care - [address] [address] Jasmyne Poe MD [address] [place] [phone] documented as of this encounter Procedures Procedure Name Priority Date/Time Associated Diagnosis Comments OUTPATIENT ADD-ON Routine 05/21/2017 13: 28 EST Vitamin D deficiency documented in this encounter Results * OUTPATIENT ADD-ON (05/21/2017 13:28 EST) Pathologist [facility] Tests to be added VITAMIN D 05/21/2017 13:28 EST [facility] Diagnosis Code SEE PRISM DOS [id number] 05/21/2017 14:25 [facility] Number for problems 7 05/21/2017 13:28 [facility] Comment:[id number] Accession number [id number] 05/21/2017 14:25 [facility] Acknowledge ABP Done 14:36 [facility] BLOOD SPECIMEN / Unknown 05/21/2017 13:28 EST 05/21/2017 14:24 EST Jasmyne Poe MD HEMATOLOGY & PF4 ORDERABLES [facility] [address] [place] [address] * HIV 1/2 ANTIGEN AND ANTIBODY, 4TH GENERATION (05/21/2017 11:24 EST) HIV 1/2 Antibody Negative Negative 05/22/19 12:35 EST [facility] Comment: Fourth generation assay performed on the [employer]. If acute HIV-1 infection is suspected in a high risk patient, submit plasma specimen for HIV-1 RNA quantification test. Blood specimen (specimen) BLOOD SPECIMEN / Unknown 05/21/2017 11:24 EST 05/21/2017 13:53 EST Jasmyne Poe MD IMMUNOLOGY AND S EROLOGY ORDERABLES Performing Organization Address [facility] Co de Phone Number [facility] [address] [place] [address] * HEMOGLOBIN A1C (05/21/2017 11:24 EST) Hemoglobin A1C 5.7 % 05/21/2017 16:01 EST [facility] Comment: Reference Range: <5.7% Normal 5.7-6.4% Prediabetes =>6.5% Diagnostic for diabetes (if confirmed) Goals for glycemic control in diabetes ADA 2017 For non adults with diabetes: ?? Target <7.5% For children and adolescents with type 1 diabetes: ?? Target <7.0% More or less stringent targets may be appropriate for individual patients. Est Avg Glucose 117 mg/dl 8 16:01 EST [facility] Comment: eAG represents the A1c result expressed as average glucose in mg/dl. Blood specimen (specimen) BLOOD SPECIMEN / Unknown 05/21/2017 11:24 EST 05/21/2017 13:53 EST Jasmyne Poe MD CHEMISTRY & BLOO D GAS ORDERABLES Performing Organization Address [facility] Co de Phone Number [facility] [address] [place] [phone] documented in this encounter Visit Diagnoses Diagnosis History of gestational diabetes- Primary Personal history of gestational diabetes Screening for HIV (human immunodeficiency virus) Special screening examination for other specified viral diseases Vitamin D deficiency Unspecified vitamin D deficiency Encounter for preventive health examination Routine general medical examination at a health care facility Depression screen Screening for depression Anxiety Anxiety state, unspecified Acquired hypothyroidism Unspecified hypothyroidism documented in this encounter Care Teams Microbiology Lab Manager Relationship Specialty Start Date End Date Jasmyne Poe MD [address] [place] [id number] PCP - General 01/07/13 documented as of this encounter
--- OUTSIDE RECORDS SUMMARY | 2023-12-03 02:09 | XMS_ITS | Encounter Summary ---
Author Organization [facility] Address [address] [place] [address] Care Team Providers Care Computer Designer Name Role Phone Jasmyne Poe MD Primary Care Provider + Reason for Referral * Consult, Test and Treat (Routine/Next Available) - Closed Specialty Diagnoses / Procedures Referred By Meka james Referred To Contact Rehab Therapies Diagnoses Right shoulder pain Jasmyne Poe MD [address] [place] [phone] Referral ID Status Reason Start Date Expiration Date V isits Requested Visits Authorized [id number] Closed Specialty Services Required 05/28/2013 1 1 Question Answer Reason for Request: Right shoulder pain Comments Fax to [facility] Reason for Visit * Reason Onset Date Comments Shoulder Pain 05/28/2013 Encounter Details Date Type Department Care Team (Late st Contact Info) Description 05/28/2013 Telephone [facility] Adult Primary Care - [address] [address] Jasmyne Poe MD [address] [place] [phone] Shoulder Pain Social History Tobacco Use Types Packs/Day Years [...] Telephone Encounter - Jasmyne Poe MD - 05/28/2013 1251 EST Referral signed * Telephone Encounter - Laure Park - 05/28/2013 1200 EST Reason for Call: Shoulder Pain Summary/Symptoms: 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 With ibuprofen and icing she was able to keep the pain down. Seems to be worse now. 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 She would like to know if you would do an external referral to [facility] in [facility]. If you are willing to do this, see pended referral. [facility] need to inform patient. Laure Park 05/28/2013 12:00 documented in this encounter Plan of Treatment Upcoming Encounters Date Type Department Care Team (Late st Contact Info) Description 05/20/2024 14:45 EST Office Visit [facility] Adult Primary Care - [address] [address] Jasmyne Poe MD [address] [place] [phone] Scheduled Referrals Name Type Priority Associated Diagnoses Orde r Schedule AMB CONSULT PHYSICAL THERAPY Outpatient Referral Routine Right shoulder pain Ordered: 05/28/2013 documented as of this encounter Visit Diagnoses Diagnosis Right shoulder pain- Primary Pain in joint, shoulder region documented in this encounter Care Teams Computer Designer Relationship Specialty Start Date End Date Jasmyne Poe MD [address] [place] [phone] PCP - General 01/07/13 documented as of this encounter
--- OUTSIDE RECORDS SUMMARY | 2023-12-03 02:09 | XMS_ITS | Encounter Summary ---
Author Organization [facility] Address [address] [place] [address] Care Team Providers Care Manager Discovery Name Role Phone Jasmyne Poe MD Primary Care Provider + Reason for Visit * Reason Onset Date Comments Results 02/18/2013 Enter/Edit Encounter Details Date Type Department Care Team (Late st Contact Info) Description 02/18/2013 Orders Only [facility] Adult Primary Care - [place] [address] [place] [address] Jasmyne Poe MD [address] [place] [phone] Social History Tobacco Use Types Packs/Day [...] as of this encounter Progress Notes * Luna Earl - 02/18/2013 1149 EDT Enter/Edit documented in this encounter Plan of Treatment Upcoming Encounters Date Type Department Care Team (Late st Contact Info) Description 05/20/2024 14:45 EST Office Visit [facility] Adult Primary Care - [place] [address] [place], [place] [phone] Jasmyne Poe MD [address] [place] [phone] documented as of this encounter Procedures Procedure Name Priority Date/Time Associated Diagnosis Comments HEMOGLOBIN A1C Routine 02/05/2013 GLUCOSE, SERUM Routine 02/05/2013 LIPID PROFILE (INCLUDES CHOLESTEROL, TRIGLYCERIDES, HDL, LDL) Routine 02/05/2013 documented in this encounter Results * HEMOGLOBIN A1C (02/05/2013) Hemoglobin A1C, External 5.7 4.5 - 6.2 [facility] Est Avg Glucose, External [facility] Blood specimen (specimen) 02/05/2013 Jasmyne Peo MD CHEMISTRY & BLOO D GAS ORDERABLES [facility] * LIPID PROFILE (INCLUDES CHOLESTEROL, TRIGLYCERIDES, HDL, LDL) (02/05/2013) Cholesterol, External 168 [facility] Triglycerides, External 89 [facility] HDL, External 36 L [facility] LDL, External 117 [facility] Chol/HDL Ratio, External [facility] Fasting?, External unknown [facility] Blood specimen (specimen) 02/05/2013 Jasmyne Poe MD CHEMISTRY & BLOO D GAS ORDERABLES [facility] * (ABNORMAL) GLUCOSE, SERUM (02/05/2013) Glucose, Serum, External 127 70/100mg/d l [facility] Blood specimen (specimen) 02/05/2013 Jasmyne Poe MD CHEMISTRY & BLOO D GAS ORDERABLES [facility] documented in this encounter Visit Diagnoses Not on filedocumented in this encounter Care Teams Manager Discovery Relationship Specialty Start Date End Date Jasmyne Poe MD [address] [place] [phone] PCP - General 01/07/13 documented as of this encounter
--- OUTSIDE RECORDS SUMMARY | 2023-12-03 02:09 | XMS_ITS | Encounter Summary ---
Author Organization [facility] Address [address] [place] [address] Care Team Providers Care Credentialing Specialist Name Role Phone Jasmyne Poe MD Primary Care Provider + Encounter Details Date Type Department Care Team (Late st Contact Info) Description 05/21/2017 Phlebotomy Only [facility] [address] [place] [address] Gelatin Dynamite Packing Operator, Outpatient History of gestational diabetes; Screening for HIV (human immunodeficiency virus) Social History Tobacco Use Types Packs/Day Years [...] No 05/21/2017 documented as of this encounter Plan of Treatment Upcoming Encounters Date Type Department Care Team (Late st Contact Info) Description 05/20/2024 14:45 EST Office Visit [facility] Adult Primary Care - [place] [address] [place] [address] Jasmyne Poe MD [address] [place] [phone] documented as of this encounter Procedures Procedure Name Priority Date/Time Associated Diagnosis Comments HIV 1/2 ANTIGEN AND ANTIBODY, 4TH GENERATION Routine 05/21/2017 11:24 EST Screening for HIV (human immunodeficiency virus) HEMOGLOBIN A1C Routine 05/21/2017 11:24 EST History of gestational diabetes documented in this encounter Results * HIV 1/2 ANTIGEN AND ANTIBODY, 4TH GENERATION (05/21/2017 11:24 EST) HIV 1/2 Antibody Negative Negative 05/22/19 18 12:35 EST [facility] Comment: Fourth generation assay performed on the [email or web address]. If acute HIV-1 infection is suspected in a high risk patient, submit plasma specimen for HIV-1 RNA quantification test. Blood specimen (specimen) BLOOD SPECIMEN / Unknown 05/21/2017 11:24 EST 05/21/2017 13:53 EST Jasmyne Poe MD IMMUNOLOGY AND S EROLOGY ORDERABLES Performing Organization Address City/State/[facility] Co de Phone Number [facility] [address] [place] [address] * HEMOGLOBIN A1C (05/21/2017 11:24 EST) Hemoglobin A1C 5.7 % 05/21/2017 16:01 EST [facility] Comment: Reference Range: <5.7% Normal 5.7-6.4% Prediabetes =>6.5% Diagnostic for diabetes (if confirmed) Goals for glycemic control in diabetes ADA 2017 For non adults with diabetes: ?? Target <7.5% For children and adolescents with type 1 diabetes: ?? Target <7.0% More or less stringent targets may be appropriate for individual patients. Est Avg Glucose 117 mg/dl 8 16:01 EST [facility] Comment: eAG represents the A1c result expressed as average glucose in mg/dl. Blood specimen (specimen) BLOOD SPECIMEN / Unknown 05/21/2017 11:24 EST 05/21/2017 13:53 EST Jasmyne Poe MD CHEMISTRY & BLOO D GAS ORDERABLES [facility] [address] [place] [address] documented in this encounter Visit Diagnoses Diagnosis History of gestational diabetes Personal history of gestational diabetes Screening for HIV (human immunodeficiency virus) Special screening examination for other specified viral diseases documented in this encounter Care Teams Credentialing Specialist Relationship Specialty Start Date End Date Jasmyne Poe MD [address] [place] [phone] PCP - General 01/07/13 documented as of this encounter
--- OUTSIDE RECORDS SUMMARY | 2023-12-03 02:09 | XMS_ITS | Encounter Summary ---
Author Organization [facility] Address [address] [place] [address] Care Team Providers Care Maintenance Plumber Name Role Phone Jasmyne Poe MD Primary Care Provider + Reason for Visit * Reason Onset Date Comments Other 01/12/2013 Old Medical Derek rds Encounter Details Date Type Department Care Team (Late st Contact Info) Description 01/12/2013 Telephone [facility] Adult Primary Care - [address] [address] Jasmyne Poe MD [address] [place] [phone] Other (Old Medical Records) Social History Tobacco Use Types Packs/Day Years [...] encounter Miscellaneous Notes * Telephone Encounter - Ijeoma Peter - 02/08/2013 7025 EDT Pt does not care for her old medical records - they will be destroyed * Telephone Encounter - Ijeoma Peter - 01/25/2013 1128 EDT Left message #2 requesting call back * Telephone Encounter - Ijeoma Peter - 01/12/2013 1016 EDT Left message requesting patient to call back Would patient like their old medical records destroyed or returned - please confirm mailing addressif returning records to patient documented in this encounter Plan of Treatment Upcoming Encounters Date Type Department Care Team (Late st Contact Info) Description 05/20/2024 14:45 EST Office Visit [facility] Adult Primary Care - [address] [phone] Jasmyne Poe MD [address] [place] [phone] documented as of this encounter Visit Diagnoses Not on filedocumented in this encounter Care Teams Maintenance Plumber Relationship Specialty Start Date End Date Jasmyne Poe MD [address] [place] [phone] PCP - General 01/07/13 documented as of this encounter
--- OUTSIDE RECORDS SUMMARY | 2023-12-03 02:09 | XMS_ITS | Encounter Summary ---
Author Organization [facility] Address [address] [place] [address] Care Team Providers Care Entertainment Production Professional Name Role Phone None, Provider Primary Care Provider Unavailabl e Encounter Details Date Type Department Care Team (Late st Contact Info) Description 11/25/2012 11:02 EDT - 11/25/2012 11:03 EDT Hospital Encounter [facility] - [address] [address] [place] [address] [phone] Discharge Disposition: Home or Self Care Social History Tobacco Use Types Packs/Day Years Used Date Smoking Tobacco: Never Assessed Sex and Gender Information Value Date Recorded Sex Assigned at Not on file Gender Identity Female 06/02/2019 15:13 EST Sexual Orientation Not on file documented as of this encounter Discharge Disposition Disposition Code Departure Means Destination Home or Self Care documented in this encounter Plan of Treatment Upcoming Encounters Date Type Department Care Team (Late st Contact Info) Description 05/20/2024 14:45 EST Office Visit [facility] Adult Primary Care - [place] [address] [place], [place] [phone] Jasmyne Poe MD [address] [place] [phone] documented as of this encounter Visit Diagnoses Not on filedocumented in this encounter Care Teams Entertainment Production Professional Relationship Specialty Start Date End Date None, Provider PCP - General 09/02/12 01/06/13 documented as of this encounter
--- OUTSIDE RECORDS SUMMARY | 2023-12-03 02:09 | XMS_ITS | Encounter Summary ---
Author Organization [facility] Address [address] [place] [address] Care Team Providers Care Experimental Plastics Fabricator Name Role Phone Jasmyne Poe MD Primary Care Provider + Encounter Details Date Type Department Care Team (Late st Contact Info) Description 09/05/2014 Results Only [facility] [phone] Maurice Angeles MD [address] [place] [phone] Social History Tobacco Use Types Packs/Day Years [...] Info) Description 05/20/2024 14:45 EST Office Visit [facility] Adult Primary Care - [address] [phone] Jasmyne Poe MD [address] [place] [phone] documented as of this encounter Procedures Procedure Name Priority Date/Time Associated Diagnosis Comments PAP TEST- RESULT ONLY Routine 09/05/2014 0:00 EDT documented in this encounter Results * PAP TEST- RESULT ONLY (09/05/2014 0:00 EDT) Pathology Report: CYTOPATHOLOGY REPORT Reports generated via electronic interface contain original data; however they are lacking the format of the original report. Caution should be taken when reading/interpreti ng unformatted reports. Name: ? KIRSTEN ALMAGUER Meme ? Accession #: ? [id number] ? : ? 1965 (Age: 49) ??F ?Collect Date: ? 09/05/2014 ? Location: ? [facility] ? Receive Date: ? 09/06/2014 ? Provider: MAURICE ANGELES MD Copy to: ANDER COLLAZO MD ? Final Report SPECIMEN ADEQUACY ? Satisfactory for Evaluation - transformation zone component present GENERAL CATEGORIZATION ? Negative for Intraepithelial Lesion or Malignancy INTERPRETATION ? Reactive cellular changes associated with inflammation present (includes repair). Previous Gynecologic Pathology: ASC-US: 2013 Other: Additional clinical information: Neg pap 2009, No HPV 2012 Specimen/Source: ??Pap Test, Cervix/Endocervix, ThinPrep Imaging System with manual evaluation Document reviewed and electronically signed by: ? LEATHA SAGE MD ? Report ??Date: 09/19/2014 15:16 HPV with Pap Test ? Date Ordered: ? 09/19/2014 ? Status: ?? Signed Out ?Date Complete: ? 09/21/2014 ? By: ??System Interface ? Date Reported: ? 09/21/2014 ? Interpretation RESULT: Negative for HPV. No E6 or E7 mRNA is detected from HPV types 16,18,31,33,35, 39,45,51,52,56,58, 59,66, and 68 by sewer inspector mediated amplification. Comments Document reviewed and electronically signed by: ? System Interface ? Report date: 09/21/2014 By the signature above, the attending physician certifies that he/she has personally conducted a gross and/or microscopic examination of the described specimens and rendered or confirmed the above diagnosis. End of Report [facility] 09/05/2014 09/06/2014 Maurice Angeles MD PATHOLOGY ORDERABLES Performing Organization Address City/State/[facility] Co de Phone Number [facility] [address] [place] [address] documented in this encounter Visit Diagnoses Not on filedocumented in this encounter Care Teams Experimental Plastics Fabricator Relationship Specialty Start Date End Date Jasmyne Poe MD [address] [place] [phone] PCP - General 01/07/13 documented as of this encounter
--- OUTSIDE RECORDS SUMMARY | 2023-12-03 02:09 | XMS_ITS | Encounter Summary ---
Author Organization [facility] Address [address] [place] [address] Care Team Providers Care Family Services Assistant Name Role Phone Unavailable Primary Care Provider Unavailabl e Encounter Details Date Type Department Care Team (Late st Contact Info) Description 11/17/2007 Office Visit [facility] [address] [place], [place] [address] Cindy Saldana MD [address] [facility] Level [address] [place] [address] Social History Tobacco Use Types Packs/Day Years Used Date Smoking Tobacco: Never Assessed Sex and Gender Information Value Date Recorded Sex Assigned at Not on file Gender Identity Female 06/02/2019 15:13 EST Sexual Orientation Not on file documented as of this encounter Progress Notes * Cindy Saldana MD - 06/09/2009 1756 EST Care Center - Physician Summary Registration Date/Time: 11/17/2007 12:55 Arrived- By private vehicle. Historian- patient. HISTORY OF PRESENT ILLNESS Chief Complaint: EARACHE. This started 3 days ago and is still present (Pt just moved here from [place] in September and her 6 year old son was dxed with leukemia early October). Location- right ear. The pain is described as moderate. She has had ear pain (right ear). The patient has had nasal congestion (from crying). She has had sinus pressure (right sided). No ear drainage or sore throat. (The patient has been having some burning on urination over the past weekas well.). The patient has had similar symptoms previously. (has had frequent sinus infections- feels similar - is often treated with cipro or azithromycin). Not recently seen/assessed. REVIEW OF SYSTEMS No fever, chills, cough, difficulty breathing or chest pain. No nausea, vomiting, abdominal pain, skin rash or enlarged lymph nodes. Under significant stress related to her son's dx. Has been at the hospital most of the time while her son is getting treated.. PAST HISTORY Negative. See nurses notes. Medications: (zoloft). The patient's medications have been reviewed. Allergies: (sulfa, pcn). The patient's allergies have been reviewed. SOCIAL HISTORY Nonsmoker. ADDITIONAL NOTES The nursing notes have been reviewed. PHYSICAL EXAM Appearance: Alert. No acute distress. Vital Signs: Have been reviewed. Eyes: Eyes normal inspection. Ear (left): Left ear normal. Left tympanic membrane normal. Ear (right): Right ear normal. Right tympanic membrane normal. Nose: Tenderness present to percussion/palpation of the sinuses: moderate right maxillary tenderness. Throat: Pharynx normal. CVS: Normal heart rate and rhythm. Heart sounds normal. Respiratory: No respiratory distress. Breath sounds normal. No rales, rhonchi or wheezes. Abdomen: Abdomen soft. Back: Normal inspection. Skin: Normal skin color. Skin warm and dry. No rash. Extremities: No lower extremity edema. Neuro: Oriented X 3. LABS, X-RAYS, AND EKG Urinalysis: Urine dipstick negative. PROGRESS AND PROCEDURES Patient/family counseled. Disposition: Condition: stable. Discharged home. CLINICAL IMPRESSION Acute sinusitis (right ). INSTRUCTIONS Drink plenty of fluids. (Please return if there isany worsening, if you develop any of the warning signs listed or for no improvement. Please find a primary care physician in the area from the list provided.). Warnings: GENERAL WARNINGS: Return or contact your physician immediately if your condition worsens or changesunexpectedly, if not improving as expected, or if other problems arise. Prescription Medications: Zithromax 250 mg tablets: take 2 orally today, followed by 1 daily for the next 4 days. No refills.Generic substitute OK. OTC Medications: Acetaminophen (available over the counter): take according to label instructions. (Electronically signed by Cindy Saldana MD 11/17/2007 16:07) Care Center - Nursing Summary Registration Date/Time: 11/17/2007 12:55 TRIAGE Initial Assessment Triage time 13:40. BP: 148 / 86. HR: 84. RR: 16. Temp: 101.3. --134 Angelica Bansal R.N.. Medications Zoloft: 50mg daily. (Ibuprofen prn). --1349 Angelica Bansal R.N.. Allergies PENICILLIN. SULFA DRUGS. --1349 Angelica Bansal R.N.. History Chief Complaint: (Possible Sinus Infection with Pressure over Right Cheek x 3 days Pressure in Right Ear,, Urinarey Burning x 1 week). Pain level now: 0/10. The patient has had a cough (from tickling of post nasal drip). PAST HX: Negative. History of previous surgery. . (Lots of recent stress - 7 yo hasjust been diagnosed with Leukemia ). SOCIAL HX: Nonsmoker. No alcohol use. Abuse assessment: The patient was asked Do you feel safe in your home?. No report of abuse. Arrived by private vehicle. Historian: patient. --1349 Angelica Bansal R.N.. PHYSICAL ASSESSMENT Alert. Oriented X 3. Respirations not labored. Skin is warm and dry. --1349 Angelica Bansal R.N.. NURSING PROGRESS NOTES Patient gowned. Patient ready for evaluation. --1349 Angelica Bansal R.N. ( notified of temp.). --1353 Angelica Bansal R.N. Urine collected. Urine dipstick, clean catch sample: negative for blood, leukocyte esterase, nitrite, glucose, ketones, protein and bilirubin. --1405 Angelica Bansal R.N. (States she has not been drinking enough fluids.). --1405 Angelica Bansal R.N. Temp: 101.6 F (oral). ED physician notified. --1422 Maya Breaux L.P.N. (Dr. Saldana was present in the office suite and immediately available to provide assistance and direction through the time the services were performed.). --1434 Angelica Bansal R.N. TYLENOL 650 mg PO. Time-out completed immediately before the procedure: verified identity of patient (name and birthdate). . --1436 Angelica Bansal R.N.. DISPOSITION / DISCHARGE Condition at departure: unchanged. Patient reports pain level on departure as 0/10. No learning barriers present. Discharge instructions reviewed with the patient. Patient verbalized understanding. Written instructions provided in Hungarian. The patient was discharged home. The patient left the Emergency Department ambulatory and via privatevehicle. Patient driving. Departure time: 14:40. --1440 Angelica Bansal R.N.. Locked/Released at 11/17/2007 14:41 by Angelica Bansal R.N. documented in this encounter Plan of Treatment Upcoming Encounters Date Type Department Care Team (Late st Contact Info) Description 05/20/2024 14:45 EST Office Visit [facility] Adult Primary Care - [address] [phone] Jasmyne Poe MD [address] [place] [phone] documented as of this encounter Visit Diagnoses Not on filedocumented in this encounter
--- OUTSIDE RECORDS SUMMARY | 2023-12-03 02:09 | XMS_ITS | Encounter Summary ---
Author Organization [facility] Address [address] [place] [address] Care Team Providers Care Customer Service Consultant Name Role Phone Jasmyne Poe MD Primary Care Provider + Reason for Referral * Referral (Routine/Next Available) - Closed Specialty Diagnoses / Procedures Referred By Contact Referred To Contact Gastroenterology and Hepatology Diagnoses Colon cancer screening Procedures COLONOSCOPY REQUEST Jasmyne Poe MD [address] [place] [phone] [facility] [address] [place] [address] Referral ID Status Reason Start Date Expiration Date Visits Re quested Visits Authorized [id number] Closed 03/08/2017 1 1 Reason for Visit * Reason Comments Follow-up Encounter Details Date Type Department Care Team (Late Contact Info) Description 03/05/2017 16:30 EST Office Visit [facility] Adult Primary [facility] - [address] [place] [address] Jasmyne Poe MD [address] [place] [phone] Palpitations (Primary Dx); Colon cancer screening Social History Tobacco Use Types Packs/Day Years [...] Sign Reading Time Taken Comments Blood Pressure 143/67 03/05/2017 1651 EST Pulse 55 03/05/2017 1651 EST Temperature 36.4 ??C (97.5 ??F) 03/05/2017 1651 EST Respiratory Rate 12 03/05/2017 1651 EST Oxygen Saturation - - Inhaled Oxygen Concentration - - Weight 87.1 kg (192 lb) 03/05/2017 1651 EST Height 175.3 cm (5' 9) 03/05/2017 1651 EST Body Mass Index 28.35 03/05/2017 1651 EST documented in this encounter Functional Status Functional Status Response Date of Assess ment Because of a physical, menta l, or emotional condition, does this person have difficulty doing errands alone such as visiting a doctor's office or shopping? No 03/05/2017 Cognitive Status Response Date of Assessm ent Because of a physical, menta l, or emotional condition, does this person have serious difficulty concentrating, remembering, or making decisions? No 03/05/2017 documented as of this encounter Ordered Prescriptions Prescription Sig Dispensed Refills Start Date End Da te polyethylene glycol (GOLYTELY;NULYTELY) 236-22.74-6.74 -5.86 gram suspension Instructions mailed once procedure scheduled. Questions: [facility] Gastroenterology: [phone] or GI Doctor's Office. 4000 mL 03/08/2017 09/04/2017 documented in this encounter Progress Notes * Jasmyne Poe MD - 03/05/2017 1630 EST Patient ID: Kirsten Almaguer is 51 y.o. y.o female Patient Active Problem List Diagnosis ??? Osteoarthrosis ??? Obesity ??? Allergy to penicillin ??? Rotator cuff injury Chief Complaint: Follow-up Subjective: Kirsten comes in today for chief complaint of palpitations. Two weeks ago she experienced what she refers to as a panic attack. She was running up a flight of stairs at work when she experienced chest pressure radiating to the back and palpitations. She didn't feel short of breath but noticed that she was breathing deeply. She also experienced a sensation of doom and anxiety. 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 She took aspirin thinking that she may be having a heart attack but symptoms completely subsided after 20 minutes. She has beenexerting herself since, including going up and down the stairs, and has not experienced any similarsymptoms since. She doesn't feel anxious and there are no new stressors although she does have some anxiety about her son's health in general. He has a history of AML and she worries about long-term health consequences. She takes a small dose of sertraline which she started in 2003 for anxiety. She had a similar episode twice before years ago but symptoms occurred ar rest. One episode was about 6 months after the of her son. Also of note, her assembler wet wash started her on levothyroxine 50 mcg about a year ago and she remembers that her TSH was borderline abnormal. She does remember feeling better after starting the thyroidmedication. She has not had a level checked since. Review of systems is significant for weight loss of 22 pounds since December but she has made an effort to lose weight. Family History Problem Relation Age of Onset ??? Alcohol Abuse Father cause of @ 58yo ??? Diabetes Maternal Grandmother ??? Hypertension Maternal Grandmother ??? Diabetes Maternal Uncle ??? Heart Disease Maternal Grandfather ??? Lymphoma Maternal Grandfather Hodgkin's lymphoma ??? Heart Surgery 50 grandmother ??? Heart Attack 60 grandfather- [place] ??? Lung Cancer Mother 63 ??? Leukemia Son AML Current Outpatient Prescriptions: B Complex Vitamins (VITAMIN B COMPLEX) tablet Take 1 Each by mouth daily. cholecalciferol, Vitamin D3, 2,000 unit tablet Take by mouth. ibuprofen (MOTRIN) 200 mg tablet Take 200 mg by mouth as needed. levothyroxine (SYNTHROID) 50 mcg tablet Take 50 mcg by mouth daily. Magnesium 250 mg tablet Take 1 Each by mouth daily. melatonin 3 mg tablet Take by mouth at bedtime. MULTIVIT &MINERALS/FERROUS FUM (MULTI VITAMIN ORAL) Take by mouth. polyethylene glycol (GOLYTELY;NULYTELY) 236-22.74-6.74 -5.86 gram suspension Instructions mailed once procedure scheduled. Questions: [facility] Gastroenterology: [phone] or GI Doctor's Office. sertraline (ZOLOFT) 25 mg tablet Take 25 mg by mouth daily. Allergies Allergen Reactions ??? Penicillins Anaphylaxis ??? Sulfa (Sulfonamide Antibiotics) Rash System Negative Positive Comment Constitutional 22 pound weight loss, no fever, no flushing, no sweats Eyes ENT Pulmonary X Cardiovascular X As in HPI Gastrointestinal X No abdominal pain or diarrhea Musculoskeletal X Neurologic X No headaches, no vision changes. Hematologic Dermatologic Other Objective: BP (!) 143/67 Pulse 55 Temp 36.4 ??C (97.5 ??F) (Tympanic) Resp 12 Ht 175.3 cm (69) Wt 87.1 kg (192 lb) LMP 03/03/2017 (Exact Date) BMI 28.35 kg/m2 General: she is alert and in NAD. Mood and affect are normal. Lungs: clear in all negrete Cardiac: regular without murmur or gallop Extremities: no edema or cyanosis. LABS: Results for orders placed or performed in visit on 12/19/15 PAP TEST- RESULT ONLY Result Value Ref Range Pathology Report: CYTOPATHOLOGY REPORT Reports generated via electronic interface contain original data; however they are lacking the format of the original report. Caution should be taken when reading/interpreting unformatted reports. Name: KIRSTEN ALMAGUER : 1965 (Age: 50) F Collect Date: 12/19/2015 Location: [facility] Receive Date: 12/20/2015 Provider: MAURICE LISA MD Copy to: Final Report SPECIMEN ADEQUACY Satisfactory for Evaluation - transformation zone component present GENERAL CATEGORIZATION Epithelial Cell Abnormality INTERPRETATION Squamous Cell Abnormality - Atypical squamous cells, undetermined significance (ASC-US). EDUCATIONAL NOTES/RECOMMENDATIONS [facility] recommends following ASCCP's 2012 Updated Consens us Guidelines for the Management of Abnormal Cervical Cancer Screening Tests and Cancer Precursors (JLGTD, 2013; 17(5):S1-S27). Consensus guidelines are available online at www.asccp.org. Previous Gynecologic Pathology: Yes: irreg PAP hx repeat today for 3 in a row Infection History: Neg for HPV: neg PAP/neg HRHPV 2014 Specimen/Source: Pap Test, Cervix/Endocervix, ThinPrep Imaging System with manual evaluation Document reviewed and electronically signed by: CALIN PIERCE MD Report Date: 12/26/2015 13:51 HPV with Pap Test Date Ordered: 12/26/2015 Status: Signed Out Date Complete: 12/27/2015 By: System Interface Date Reported: 12/27/2015 Interpretation RESULT: Negative for HPV. No E6 or E7 mRNA is detected from HPV types 16,18,31,33,35, 39,45,51,52,56,58,59,66, and 68 by pouncer machine mediated amplification. Comments Document reviewed and electronically signed by: System Interface Report date: 12/27/2015 By the signature above, the attending physician certifies that he/she has personally conducted a gross and/or microscopic examination of the described specimens and rendered or confirmed the above diagnosis. End of Report Assessment: 51 year old woman here for evaluation of an episode of palpitations and chest pressure. Possibilities include acute coronary syndrome, arrhythmia, and anxiety. The acute coronary syndrome seems unlikely since it has been two weeks and she has not had any further symptoms with physical activity and exercise. 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 Anxiety is a definite possibility. No change in medications made but if she has other episodes may need an increase in the doses of sertraline. She also needs a TSH monitored on the levothyroxine. Plan: Blood work ordered. Will follow-up by phone with results. Referral for colonoscopy done. Will also arrange follow-up for an wellness visit. Today's face to face visit time was 25 minutes and 10 minutes of that time was spent in counseling and/or coordination of care for the problems listed above. * Ijeoma Peter - 03/05/2017 1630 EST Patient scheduled for 6 wk follow up end of Mar before she leaves for the holiday Pt also sched for P45 in June 2017 documented in this encounter Plan of Treatment Upcoming Encounters Date Type Department Care Team (Late st Contact Info) Description 05/20/2024 14:45 EST Office Visit [facility] Primary [facility] - [place] [address] [place] [address] Jasmyne Poe MD [address] [place] [phone] Scheduled Orders Name Type Priority Associated Diagnoses Orde r Schedule COLONOSCOPY REQUEST GI Routine Colon cancer screening Ordered: 03/08/2017 documented as of this encounter Results * COMPREHENSIVE METABOLIC PANEL (CMP) (03/12/2017 10:32 EST) Potassium 4.2 3.5 - 5.0 mEq/L 03/12/2017 12:24 [facility] Sodium 142 136 - 145 mEq/L 03/12/2017 12:24 [facility] Chloride 104 96 - 110 mEq/L 03/12/2017 12:24 [facility] CO2 31 22 - 32 mEq/L 03/12/2017 12:24 [facility] Total Alkaline Phosphatase 47 38 - 126 U/L 03/12/2017 12:24 [facility] Bilirubin, Total 0.6 <1.4 mg/dl 03/12/20 17 12:24 [facility] AST 15 15 - 46 U/L 03/12/2017 12:24 [facility] ALT 27 <53 U/L 03/12/2017 12:24 [facility] Albumin 4.1 3.4 - 4.9 g/dl 03/12/2017 12:24 [facility] Total Protein 6.5 6.3 - 8.2 g/dl 03/12/2017 12:24 [facility] Creatinine 0.63 0.52 - 1.04 mg/dl 03/12/2017 12:24 [facility] GFR, Calculated 105 >60 ml/min/1.7 3m2 03/12/2017 12:24 [facility] Comment: eGFR calculated using CKD-EPI equation for non Americans. Multiply eGFR by 1.16 for Americans. BUN 15 10 - 26 mg/dl 03/12/2017 12:24 [facility] Calcium 8.7 8.5 - 10.5 mg/dl 03/12/2017 12:24 [facility] Calculated Calcium 8.6 8.5 - 10.5 mg/dl 03/12/2017 12:24 [facility] Glucose, Serum 94 70 - 100 mg/dl 03/12/2017 12:24 [facility] Fasting? YES 03/12/2017 10:32 [facility] Blood specimen (specimen) BLOOD SPECIMEN / Unknown 03/12/2017 10:32 EST 03/12/2017 11:48 EST Jasmyne Poe MD CHEMISTRY & BLOO D GAS ORDERABLES Performing Organization Address City/State/[facility] Co de Phone Number [facility] [address] [place] [address] * LIPID PROFILE (INCLUDES CHOLESTEROL, TRIGLYCERIDES, HDL, LDL) (03/12/2017 10:32 EST) Cholesterol 149 mg/dl 03/12/2017 12:24 [facility] Comment: Desirable:<200 Borderline High:200-239 High:>tq=544 Triglycerides 94 mg/dl 03/12/2017 12:24 [facility] Comment: Normal:<150 Borderline High:150-199 High:200-499 Very High:>bq=622 HDL 42 mg/dl 03/12/2017 12:24 [facility] Comment: Low:<40 Normal:40-60 Desirable: >60 LDL, Calculated 88 mg/dl 7 12:24 [facility] Comment: Optimal:<100 Near Optimal:100-129 Borderline High:130-159 High:160-189 Very High:>lr=583 Chol/HDL Ratio 3.5 03/12/2017 12:24 [facility] Fasting? YES 03/12/2017 10:32 [facility] Non HDL Cholesterol 107 mg/dl 03/12/2017 12:24 EST [facility] Comment: Desirable:<130 Borderline:130-159 High: 160-189 Very High: >bz=250 Blood specimen (specimen) BLOOD SPECIMEN / Unknown 03/12/2017 10:32 EST 03/12/2017 11:48 EST Jasmyne Poe MD CHEMISTRY & BLOO D GAS ORDERABLES Performing Organization Address City/[facility] Co de Phone Number [facility] [address] [place] [address] * TSH (03/12/2017 10:32 EST) TSH 1.67 0.47 - 4.68 uIU/ml 03/12/2017 12:53 EST [facility] Comment:New methodology in u se 10/16/16. Blood specimen (specimen) BLOOD SPECIMEN / Unknown 03/12/2017 10:32 EST 03/12/2017 11:48 EST Jasmyne Poe MD CHEMISTRY & BLOO D GAS ORDERABLES Performing Organization Address City/[facility] Co de Phone Number [facility] [address] [place] [address] documented in this encounter Visit Diagnoses Diagnosis Palpitations- Primary Colon cancer screening Special screening for malignant neoplasms, colon documented in this encounter Historical Medications * This list may reflect changes made after this encounter. Medication Sig Dispensed Refills Start Date End Date levothyroxine (SYNTHROID) 50 mcg tablet Take 50 mcg by mouth daily. 10/01/2018 sertraline (ZOLOFT) 25 mg tablet Take 25 mg by mouth daily. 10/08/2017 added in this encounter Care Teams Customer Service Consultant Relationship Specialty Start Date End Date Jasmyne Poe MD [address] [place] [phone] PCP - General 01/07/13 documented as of this encounter
--- OUTSIDE RECORDS SUMMARY | 2023-12-03 02:09 | XMS_ITS | Encounter Summary ---
Author Organization [facility] Address [address] [place] [address] Care Team Providers Care Gate Guard Name Role Phone Jasmyne Poe MD Primary Care Provider + Encounter Details Date Type Department Care Team (Late st Contact Info) Description 05/23/2015 Results Only [facility] [phone] Florencia [place], [place] [address] [phone] Social History Tobacco Use Types Packs/Day Years [...] [facility] [address] [phone] Jasmyne Poe MD [address] [place] [phone] documented as of this encounter Procedures Procedure Name Priority Date/Time Associated Diagnosis Comments SURGICAL PATHOLOGY Routine 05/23/2015 13 :32 EST documented in this encounter Results * SURGICAL PATHOLOGY (05/23/2015 13:32 EST) Pathology Report: SURGICAL PATHOLOGY REPORT Reports generated via electronic interface contain original data; however they are lacking the format of the original report. Caution should be taken when reading/interpret ing unformatted reports. Name: ? KIRSTEN ALMAGUER ? Accession #: ? [id number] ? : ? 1965 (Age: 50) ??F ? Collect Date: ? 05/23/2015 ? Location: ? [facility] ? Receive Date: ? 05/24/2015 ? Provider: FLORENCIA MESA Copy to: ? Final Pathologic Diagnosis: SKIN OF BACK, RIGHT MID UPPER, SHAVE BIOPSY: - Melanocytic nevus, compound type, with unusual architectural features and mild cytologic atypia. ?? - Nevus does not extend to edges of shave biopsy specimen in the plane of the complete sections examined. ?? Microscopic Description: The epidermis is hyperplastic with elongate and anastomosing rete ridges. ??There is a circumscribed proliferation of melanocytes with epidermal and dermal components. ??The intraepidermal melanocytes are arranged in nests and as individual cells in a lentiginous pattern. ??The nests predominate and vary in size, shape, and spacing. ??Some of the nests bridge between rete ridges. Although the individual melanocytes are unevenly spaced in some areas, they show no tendency toward confluent growth or upward migration. ??The melanocytes are enlarged and show a mild degree of nuclear size and shape variation. ??The dermal component consists of nests and cords of similar melanocytes that show echo technologist maturation with descent. ??There is papillary dermal fibroplasia. ??(Dr. Manning)/kamrann Document reviewed and electronically signed by: ANNELIESE MANNING MD Report ??Date: 05/25/2015 14:09 By the signature above, the attending physician certifies that he/she has personally conducted a gross and/or microscopic examination of the described specimens and rendered or confirmed the above diagnosis. Specimen(s) Received: Right mid upper back Clinical History: Irregular globular pattern, DDx: atypical nevus vs. R/O other; clinical diagnosis code: ??D48.5 Gross Description: ? Received in formalin labelled with proper patient identification (initials P, S) and right mid upper back is a shave biopsy of pink-barker skin (0.7 x 0.6 x 0.1 cm). There is a central barker-brown mottled macule that measures 0.5 x 0.3 x 0.1 cm. The specimen is trisected and entirely submitted in 1. Roxi Ventura 05/24/2015 4:24 PM End of Report [facility] 05/23/2015 13:3 2 EST 05/24/2015 13:32 EST Florencia MESA PATHOLOGY ORDERABL ES [facility] [address] [place] [address] documented in this encounter Visit Diagnoses Not on filedocumented in this encounter Care Teams Gate Guard Relationship Specialty Start Date End Date Jasmyne Poe MD [address] [place] [phone] PCP - General 01/07/13 documented as of this encounter
--- OUTSIDE RECORDS SUMMARY | 2023-12-03 02:09 | XMS_ITS | Encounter Summary ---
Author Organization [facility] Address [address] [place] [address] Care Team Providers Care Commercial Solar Sales Consultant Name Role Phone Jasmyne Poe MD Primary Care Provider + Encounter Details Date Type Department Care Team (Late st Contact Info) Description 09/10/2017 16:03 EDT - 09/10/2017 23:59 EDT Hospital Encounter [address] [address] Florencia Paniagua, [place] [address] [phone] Discharge Disposition: Home or Self [...] as of this encounter Discharge Diagnoses Diagnosis D48.5 Neoplasm of uncertain behavior of skin-D48.5[ICD-10-CM] documented in this encounter Medications at Time of Discharge Medication Sig Dispensed Refills Start Date End Date cholecalciferol, Vitamin D3, 2,000 unit tablet Take by mouth. Magnesium 250 mg tablet Take 1 Each by mouth daily. Patient states she takes 500 mg daily B Complex Vitamins (VITAMIN B COMPLEX) tablet Take 1 Each by mouth daily. 03/23/2022 ibuprofen (MOTRIN) 200 mg tablet Take 200 mg by mouth as needed. 11/24/2019 levothyroxine (SYNTHROID) 50 mcg tablet Take 50 mcg by mouth daily. 10/01/2018 melatonin 3 mg tablet Take by mouth as needed. 05/19/2023 MULTIVIT &MINERALS/FERROUS FUM (MULTI VITAMIN ORAL) Take by mouth. 10/24 sertraline (ZOLOFT) 25 mg tablet Take 25 mg by mouth daily. 10/08/2017 documented as of this encounter Discharge Disposition Disposition Code Departure Means Destination Home or Self Care documented in this encounter Plan of Treatment Upcoming Encounters Date Type Department Care Team (Late st Contact Info) Description 05/20/2024 14:45 EST Office Visit [facility] Adult Primary Care - [address] [address] Jasmyne Poe MD [address] [place] [phone] documented as of this encounter Visit Diagnoses Not on filedocumented in this encounter Care Teams Commercial Solar Sales Consultant Relationship Specialty Start Date End Date Jasmyne Poe MD [address] [place] [phone] PCP - General 01/07/13 documented as of this encounter
--- OUTSIDE RECORDS SUMMARY | 2023-12-03 02:09 | XMS_ITS | Encounter Summary ---
Author Organization [facility] Address [address] [place] [address] Care Team Providers Care Workers' Compensation Claims Supervisor Name Role Phone Jasmyne Poe MD Primary Care Provider + Reason for Referral * Radiology Services (Routine) - Closed Specialty Diagnoses / Procedures Referred By Contromeo t Referred To Contact Diagnoses Shoulder pain, right Procedures SHOULDER 2 OR MORE VIEWS Jasmyne Poe MD [address] [place] [phone] Referral ID Status Reason Start Date Expiration Date Visits Re quested Visits Authorized [id number] Closed 11/09/2013 1 1 Reason for Visit * Reason Onset Date Comments Prior Auth, Other (i.e. radiology, etc.) 014 MRI Encounter Details Date Type Department Care Team (Late st Contact Info) Description 11/09/2013 Telephone [facility] Adult Primary Care - [address] [address] Jasmyne Poe MD [address] [place] [phone] Prior Auth, Other (i.e. radiology, etc.) (MRI) Social History Tobacco Use Types Packs/Day Years [...] * Telephone Encounter - Ijeoma Peter - 11/09/2013 1149 EDT Reason for Call: Prior Auth, Other (i.e. radiology, etc.) Summary/Symptoms: Patient notified XR order was faxed to [facility] Ijeoma Peter 11/09/2013 11:49 * Telephone Encounter - Jasmyne Poe MD - 11/09/2013 1134 EDT Order for plain film of shoulder signed. Please let patient know. * Telephone Encounter - Ijeoma Peter - 11/09/2013 0832 EDT Reason for Call: Prior Auth, Other (i.e. radiology, etc.) Summary/Symptoms: Patient's insurance will not pay for MRI until she has an XR first Order pended - please sign Ijeoma Peter 11/09/2013 8:32 documented in this encounter Plan of Treatment Upcoming Encounters Date Type Department Care Team (Late st Contact Info) Description 05/20/2024 14:45 EST Office Visit [facility] Adult Primary Care - [address] [address] Jasmyne Poe MD [address] [place] [phone] Scheduled Orders Name Type Priority Associated Diagnoses Orde r Schedule SHOULDER 2 OR MORE VIEWS Imaging Routine Shoulder pain, right Ordered: 11/09/2013 documented as of this encounter Visit Diagnoses Diagnosis Shoulder pain, right- Primary Pain in joint, shoulder region documented in this encounter Care Teams Workers' Compensation Claims Supervisor Relationship Specialty Start Date End Date Jasmyne Poe MD [address] [place] [phone] PCP - General 01/07/13 documented as of this encounter
--- OUTSIDE RECORDS SUMMARY | 2023-12-03 02:09 | XMS_ITS | Encounter Summary ---
Author Organization [facility] Address [address] [place] [address] Care Team Providers Care Plant And Equipment Worker Name Role Phone Jasmyne Poe MD Primary Care Provider + Encounter Details Date Type Department Care Team (Late st Contact Info) Description 09/10/2017 Results Only [facility] [phone] Florencia [place], [place] [address] [phone] Social History Tobacco Use Types [...] 05/20/2024 14:45 EST Office Visit [facility] Adult Primary Care - [place] [address] [place] [address] Jasmyne Poe MD [address] [place] [phone] documented as of this encounter Procedures Procedure Name Priority Date/Time Associated Diagnosis Comments SURGICAL PATHOLOGY Routine 09/10/2017 14 :24 EDT documented in this encounter Results * SURGICAL PATHOLOGY (09/10/2017 14:24 EDT) Pathology Report: SURGICAL PATHOLOGY REPORT Reports generated via electronic interface contain original data; however they are lacking the format of the original report. Caution should be taken when reading/interpreti ng unformatted reports. Name: ? KIRSTEN ALMAGUER ? Accession #: ? [id number] ? : ? 1965 (Age: 52) ??F ? Collect Date: ? 09/10/2017 ? Location: ? [facility] ? Receive Date: ? 09/10/2017 ? Provider: FLORENCIA MESA Copy to: ? Final Pathologic Diagnosis: SKIN OF FOOT, LEFT MEDIAL DORSAL, SHAVE BIOPSY: - Architecturally disordered compound nevus with mild cytologic atypia, involving the biopsy base and peripheral edge. See microscopic. Microscopic Description: Sections reveal a broad and asymmetrical compound melanocytic proliferation. Along the junction, there are variably sized nests located predominantly along the sides and tips of rete ridges. Within the dermis, there are small nests and singly dispersed hyperchromatic bland-appearing melanocytes which show maturation with descent. The lesion extends both to the biopsy base and peripheral edge. Keycase Assembler slides of this case were reviewed at intradepartmental consultation conference. ??(Dr. Campos)/rosmery Document reviewed and electronically signed by: JASMYNE CAMPOS MD Report ??Date: 09/12/2017 14:42 By the signature above, the attending physician certifies that he/she has personally conducted a gross and/or microscopic examination of the described specimens and rendered or confirmed the above diagnosis. Specimen(s) Received: Left medial dorsal foot shave biopsy Clinical History: Irregular speckled macule, DDx: Atypical nevus vs. acral melanoma vs other; excision with Dr. Roy; clinical diagnosis code: ??D48.5 Gross Description: ? Received in formalin labelled with proper patient identification (initials P, S) and left medial dorsal foot is a shave biopsy of a barker-whelan encrusted skin (1.0 x 0.5 x 0.3 cm). The specimen is inked, bisected, and submitted in 1. MOSHE Li (ASCP) 09/10/2017 2:41 PM End of Report [facility] 09/10/2017 14:2 4 EDT 09/10/2017 14:24 EDT Florencia MESA PATHOLOGY ORDERABL ES [facility] [address] [place] [address] documented in this encounter Visit Diagnoses Not on filedocumented in this encounter Care Teams Plant And Equipment Worker Relationship Specialty Start Date End Date Jasmyne Poe MD [address] [place] [phone] PCP - General 01/07/13 documented as of this encounter
--- OUTSIDE RECORDS SUMMARY | 2023-12-03 02:09 | XMS_ITS | Encounter Summary ---
Author Organization [facility] Address [address] [place] [address] Care Team Providers Care Net Programmer Analyst Name Role Phone Jasmyne Poe MD Primary Care Provider + Encounter Details Date Type Department Care Team (Late st Contact Info) Description 01/07/2013 Results Only [facility] Adult Primary Care - [address] [address] Jasmyne Poe MD [address] [place] [phone] Social History Tobacco Use Types Packs/Day [...] Info) Description 05/20/2024 14:45 EST Office Visit [facility] Adult Primary Care - [address] [address] Jasmyne Poe MD [address] [place] [phone] (work) documented as of this encounter Procedures Procedure Name Priority Date/Time Associated Diagnosis Comments PAP TEST- RESULT ONLY Routine 01/07/2013 0:00 EDT documented in this encounter Results * PAP TEST- RESULT ONLY (01/07/2013 0:00 EDT) Pathology Report: CYTOPATHOLOGY REPORT Reports generated via electronic interface contain original data; however they are lacking the format of the original report. Caution should be taken when reading/interpreti ng unformatted reports. Name: ? KIRSTEN ALMAGUER ? Accession #: ? [id number] ? : ? 1965 (Age: 47) ??F ?Collect Date: ? 01/07/2013 ? Location: ? [facility] ? Receive Date: ? 01/11/2013 ? Provider: JASMYNE POE MD Copy to: ? Final Report SPECIMEN ADEQUACY ? Satisfactory for Evaluation - transformation zone component present GENERAL CATEGORIZATION ? Epithelial Cell Abnormality INTERPRETATION ? Squamous Cell Abnormality - Atypical squamous cells, undetermined significance (ASC-US). Endometrial cells present in a woman equal to or greater than age 40. Negative for Intraepithelial Lesion. EDUCATIONAL NOTES/RECOMMENDATI ONS ? [facility] recommends following ASCCP's 2012 Updated Consensus Guidelines for the Management of Abnormal Cervical Cancer Screening Tests and Cancer Precursors (JLGTD, 2013; 17(5):S1-S27). ??Consensus guidelines are available online at www.asccp.org. Benign appearing endometrial cells on Pap tests are usually a normal finding in women with regular menstrual cycles, especially if the Pap test was collected during the first half of the menstrual cycle. There is data showing that endometrial cells on Pap tests may be associated with endometrial/uterin e abnormalities in post menopausal women or in perimenopausal women with abnormal bleeding. There is limited data on the significance of benign endometrial cells in post menopausal women on HRT. ??Clinical correlation is recommended. Note: ??The Pap test is not an accurate test for the screening of endometrial lesions and should not be used as a follow up in patients with clinical suspicion of endometrial pathology. Last Menstrual Period: 01/01/13 Specimen/Source: ??Pap Test, Cervix/Endocervix, ThinPrep Imaging System with manual evaluation Document reviewed and electronically signed by: ? MAX WELLS MD [facility] ? Report ??Date: 01/14/2013 18:09 HPV with Pap Test ? Date Ordered: ? 01/14/2013 ? Status: ?? Signed Out ?Date Complete: ? 01/18/2013 ? By: ??System Interface ? Date Reported: ? 01/18/2013 ? Interpretation RESULT: Negative for HPV. No E6 or E7 mRNA is detected from HPV types 16,18,31,33,35, 39,45,51,52,56,58, 59,66, and 68 by geothermal operations manager mediated amplification. Comments Document reviewed and electronically signed by: ? System Interface ? Report date: 01/18/2013 By the signature above, the attending physician certifies that he/she has personally conducted a gross and/or microscopic examination of the described specimens and rendered or confirmed the above diagnosis. End of Report LORI EDWARDS 01/07/2013 01/11/2013 Jasmyne Poe MD PATHOLOGY DMITRY PANDA [facility] Organization Address City/State/ZIP Co de Phone Number LORI EDWARDS [address] [place] [address] documented in this encounter Visit Diagnoses Not on filedocumented in this encounter Care Teams Net Programmer Analyst Relationship Specialty Start Date End Date Jasmyne Poe MD [address] [place] [phone] PCP - General 01/07/13 documented as of this encounter
--- OUTSIDE RECORDS SUMMARY | 2023-12-03 02:09 | XMS_ITS | Encounter Summary ---
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 Encounter Details Date Type Department Care Team (Late st Contact Info) Description 10/15/2013 11:30 EDT Office Visit [facility] Adult Primary Care - [address] [address] Jasmyne Poe MD [address] [place] [phone] Right shoulder pain (Primary Dx) Social History Tobacco Use Types [...] Sign Reading Time Taken Comments Blood Pressure 122/80 10/15/2013 1125 EDT Pulse 64 10/15/2013 1125 EDT Temperature 36.9 ??C (98.5 ??F) 10/15/2013 1125 EDT Respiratory Rate 14 10/15/2013 1125 EDT Oxygen Saturation - - Inhaled Oxygen Concentration - - Weight 87.5 kg (193 lb) 10/15/2013 1125 EDT Height 175.3 cm (5' 9) 10/15/2013 1125 EDT Body Mass Index 28.5 10/15/2013 1125 EDT documented in this encounter Patient Instructions * Patient Instructions* Jasmyne Poe MD - 10/15/2013 11:55 EDT MRI of right shoulder documented in this encounter Progress Notes * Jasmyne Poe MD - 10/15/2013 1903 EDT PROBLEM: Shoulder Pain SUBJECTIVE: here for right shoulder pain. She originally injured the right shoulder last October pulling on a flute teacher cord. The pain improved somewhat but never completely resolved. She eventually began PT for a presumed rotator cuff injury this past July but continues to have pain in the upper arm just lateral to the biceps. In addition, about two weeks ago she developed more acute pain in the area without obvious precipitant injury. Her therapist suspected a biceps tendon injury and put a hold on PT. The pain in the shoulder itself has improved. There is no radiation of the pain. There is no numbness and tingling of the hand or upper extremity. OBJECTIVE: BP 122/80 Pulse 64 Temp(Src) 36.9 ??C (98.5 ??F) (Tympanic) Resp 14 Ht 175.3 cm (69) Wt 87.544 kg (193 lb) BMI 28.49 kg/m2 Right shoulder: on inspection, no obvious deformity or asymmetry as compared to the left side. On palpation, there is pain at the biceps tendon and in the muscle itself. She has pain with both external and internal rotation but range of motion is normal. Forward flexion and abduction also produce pain with full range of motion. Neer impingement test mildly positive. ASSESSMENT: Right shoulder injury: range of motion is intact but persistent pain with use and incomplete improvement with PT. ?rotator cuff vs biceps tendon injury PLANS: 1. MRI of right shoulder Patient Education Provided: Method: Verbal Taught to: Patient Barriers: None Outcomes: verbalized understanding documented in this encounter Plan of Treatment Upcoming Encounters Date Type Department Care Team (Late st Contact Info) Description 05/20/2024 14:45 EST Office Visit [facility] - [place] [address] [place], [place] [phone] Jasmyne Poe MD [address] [place] [phone] documented as of this encounter Procedures Procedure Name Priority Date/Time Associated Diagnosis Comments MR EXTREMITY SHOULDER WO CONTRAST 12/09/2013 16:53 EDT documented in this encounter Results * MR EXTREMITY SHOULDER WO CONTRAST (12/09/2013 16:53 EDT) Anatomical Region Laterality Modality Other 12/09/2013 16:5 3 EDT 12/10/2013 15:08 EDT Narrative 12/10/2013 15:08 EDT MR RIGHT EXTREMITY SHOULDER WO CONTRAST ??12/09/2013 4:53 PM Signs and Symptoms/Comments: ??719.41-Pain in joint, shoulder cfihbj-BID-3-CM; greater than 6 months of pain in the right upper arm after pulling injury, no change with PT Comparison: None Available Technique: ?? Multiplanar sagittal, coronal, axial conventional MR images with long and short TR sequences of the right shoulder were obtained without contrast administration. Findings: High-grade partial tear of the distal supraspinatus tendon which appears markedly attenuated distal to the level of the cable at its footprint. ??A small full-thickness component is present in the mid fibers of the distal supraspinatus tendon measuring 4 mm in anterior posterior dimension (sagittal 4, coronal 7-8). ??This tear progresses an oblique fashion anterior posterior to involve the functional zone and the anterior most fibers of the distal infraspinatus tendon; continuing along its myotendinous junction. ??There is medial retraction of some of the articular sided portal fibers at the level of the caval. ??There is no significant atrophy or fatty infiltration of the supraspinatus or infraspinatus muscles. There is mild tendinosis of the distal subscapularis with no discrete tear. ??No atrophy or fatty infiltration of the subscapularis muscle is present. ?? The teres minor tendon is intact. ??Incidentally noted is mild atrophy and fatty infiltration of the superior belly of the teres minor muscle. ??This is nonspecific in the setting of a normal tendon and no mass is identified in the quadrilateral space. The long head of the bicep tendon is intact. Tear of the chondral labral junction at the anteroinferior glenoid, reminiscent a GLAD (glenolabral articular disruption) lesion. ?? Additionally, there is an anterior superior sub-labral hole/foramen with undersurface fraying of the superior labrum. ??The posterior-superior and posterior-inferior quadrants of the labrum are unremarkable. 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 Impression: 1. High-grade partial tear of the distal supraspinatus tendon with a small full-thickness component anteriorly and progression of the tear in an oblique fashion from anterior to posterior as a partial interstitial tear 2 involve the junctional zone and adjacent anterior most fibers of the distal infraspinatus, as described above. 2. Tear of the chondral labral junction on the anteroinferior aspect of the glenoid, reminiscent of the so-called GLAD lesion (i.e., glenolabral articular disruption). Undersurface fraying of the posterosuperior labrum. Anterosuperior sub-labral foramen/hole. 3. Nonspecific atrophy and fatty infiltration of the superior teres minor muscle. ??No mass is identified in the quadrilateral space to suggest causative nerve impingement. 4. Mild degenerative changes in the acromioclavicular joint. I have personally reviewed the images and the above interpretation and agree with the findings. Procedure Note Theron Johnston MD - 12/10/2013 MR RIGHT EXTREMITY SHOULDER WO CONTRAST 12/09/2013 4:53 PM Signs and Symptoms/Comments: 719.41-Pain in joint, shoulder qqajfy-HMX-0-CM; greater than 6 months of pain in the right upper arm after pulling injury, no change with PT Comparison: None Available Technique: Multiplanar sagittal, coronal, axial conventional MR images with long and short TR sequences of the right shoulder were obtained without contrast administration. Findings: High-grade partial tear of the distal supraspinatus tendon which appears markedly attenuated distal to the level of the cable at its footprint. A small full-thickness component is present in the mid fibers of the distal supraspinatus tendon measuring 4 mm in anterior posterior dimension (sagittal 4, coronal 7-8). This tear progresses an oblique fashion anterior posterior to involve the functional zone and the anterior most fibers of the distal infraspinatus tendon; continuing along its myotendinous junction. There is medial retraction of some of the articular sided portal fibers at the level of the caval. There is no significant atrophy or fatty infiltration of the supraspinatus or infraspinatus muscles. There is mild tendinosis of the distal subscapularis with no discrete tear. No atrophy or fatty infiltration of the subscapularis muscle is present. The teres minor tendon is intact. Incidentally noted is mild atrophy and fatty infiltration of the superior belly of the teres minor muscle. This is nonspecific in the setting of a normal tendon and no mass is identified in the quadrilateral space. The long head of the bicep tendon is intact. Tear of the chondral labral junction at the anteroinferior glenoid, reminiscent a GLAD (glenolabral articular disruption) lesion. Additionally, there is an anterior superior sub-labral hole/foramen with undersurface fraying of the superior labrum. The posterior-superior and posterior-inferior quadrants of the labrum are unremarkable. 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 Impression: 1. High-grade partial tear of the distal supraspinatus tendon with a small full-thickness component anteriorly and progression of the tear in an oblique fashion from anterior to posterior as a partial interstitial tear 2 involve the junctional zone and adjacent anterior most fibers of the distal infraspinatus, as described above. 2. Tear of the chondral labral junction on the anteroinferior aspect of the glenoid, reminiscent of the so-called GLAD lesion (i.e., glenolabral articular disruption). Undersurface fraying of the posterosuperior labrum. Anterosuperior sub-labral foramen/hole. 3. Nonspecific atrophy and fatty infiltration of the superior teres minor muscle. No mass is identified in the quadrilateral space to suggest causative nerve impingement. 4. Mild degenerative changes in the acromioclavicular joint. I have personally reviewed the images and the above interpretation and agree with the findings. Jasmyne Poe MD IMG MRI ORDERABL ES documented in this encounter Visit Diagnoses Diagnosis Right shoulder pain- Primary Pain in joint, shoulder region documented in this encounter Discontinued Medications Medication Sig Discontinue Reason Start Date End Da te GLUC/CHND/OM3/DHA/EPA/FIS H/STR (GLUCOSAMINE CHONDROITIN PLUS ORAL) Take 1 Each by mouth daily. 10/15/2013 documented as of this encounter Care Teams Fire Production Operator Relationship Specialty Start Date End Date Jasmyne Poe MD [address] [place] [phone] PCP - General 01/07/13 documented as of this encounter
--- OUTSIDE RECORDS SUMMARY | 2023-12-03 02:09 | XMS_ITS | Encounter Summary ---
Author Organization [facility] Address [address] [place] [address] Care Team Providers Care Energy Auditor Name Role Phone Jasmyne Poe MD Primary Care Provider + Reason for Referral * Referral (Routine) - Closed Specialty Diagnoses / Procedures Referred By Meka james Referred To Contact Diagnoses Right shoulder [place] [address] [place] [address] Referral ID Status Reason Start Date Expiration Date V isits Requested Visits Authorized [id number] Closed Specialty Services Required 12/30/2013 1 1 Question Answer Reason for Request: right shoulder partial supraspinatis and labral tear Comments Pain relief modalities, rom to tolerance, post scapular strengthening Reason for Visit * Reason Comments Shoulder Pain * Consult (Routine) - Specialty Report Received Specialty Diagnoses / Procedures Referred By Meka james Referred To Contact Orthopedic Surgery Diagnoses Right shoulder pain Jasmyne Poe MD [address] [place] [phone] [facility] [place] [address] Referral ID Status Reason Start Date Expiration Date Visits Requested Visits Authorized [id number] Specialty Report Received Specialty Services Required 12/10/2013 1 1 Encounter Details Date Type Department Care Team (Late st Contact Info) Description 12/30/2013 10:00 EDT Office Visit [facility] [place] [address] [place] [address] Hang Rios Right shoulder pain (Primary Dx) Discharge Disposition: Auto Discharge Social History Tobacco [...] - Inhaled Oxygen Concentration - - Weight 86.2 kg (190 lb) 12/30/2013 1006 EDT Height 175.3 cm (5' 9) 12/30/2013 1006 EDT Body Mass Index 28.06 12/30/2013 1006 EDT documented in this encounter Discharge Diagnoses Diagnosis 719.41 JOINT PAIN-SHLDER[ICD-9-CM] documented in this encounter Discharge Disposition Disposition Code Departure Means Destination Auto Discharge documented in this encounter Progress Notes * Hang Rios, KAYY - 12/30/2013 1032 EDT Subjective: Right shoulder injury. Patient states that just over a year ago she was pulling a starter cord on a lawnmower when it jammed and she experience sudden sharp pain in his right shoulder. She went to appear to physical therapy which she notes helped to a degree but she slacked off a bit and continues to have pain in the shoulder especially with abduction and external rotation. 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 She notes allergies to penicillin and sulfur meds. See intake sheet for remaining review of systems past medical history. Objective: Patient is alert oriented x3 in no obvious distress eyes equal reactive to light no breathing difficulties. She is 5 foot 9 inches tall 190 pounds. On exam there appears to be some atrophyin the posterior scapular region. She abducts to about 150?? before pain and actively I can get herto about 160??. At 90?? abduction she externally rotates to 90?? with some pain crepitance and she has pain against speeds test. She internal rotates a spinal level of L2 with some weakness in his lift off. Negative Yergason's. Positive impingement on years and Morris. Radial pulse automotive service writer strength interosseous musculature all intact. There is no pain in the supraclavicular fossa or over the a.c. joint. She does have a plain MRI ordered by her primary care provider that does show a high-grade partial tear the distal supraspinatus with a small full-thickness component. Also tear of the chondral labral junction which is described as a glad lesion. Assessment: Right shoulder rotator cuff tear Plan: Do to the degree of disability this is creating for the patient and the gradual exacerbation of her symptoms I like to have her followed up with Dr. Norton in the near future for his exam and opinion to determine if any surgical intervention would be appropriate at this time. The meantime I will get the patient back into formal physical therapy program to work on posterior scapular strengthening range of motion exercises. Patient is being seen at time Dr. Lou is in clinic and available for consultation documented in this encounter Plan of Treatment Upcoming Encounters Date Type Department Care Team (Late st Contact Info) Description 05/20/2024 14:45 EST Office Visit [facility] Adult Primary Care - [address] [phone] Jasmyne Poe MD [address] [place] [phone] Scheduled Referrals Name Type Priority Associated Diagnoses Orde r Schedule AMB CONS/FOLLOW UP PHYSICAL THERAPY Outpatient Referral Routine Right shoulder pain Ordered: 12/30/2013 documented as of this encounter Visit Diagnoses Diagnosis Right shoulder pain- Primary Pain in joint, shoulder region documented in this encounter Historical Medications * This list may reflect changes made after this encounter. Medication Sig Dispensed Refills Start Date End Date melatonin 3 mg tablet Take by mouth as needed. 05/19/2023 added in this encounter Care Teams Energy Auditor Relationship Specialty Start Date End Date Jasmyne Poe MD [address] [place] [phone] PCP - General 01/07/13 documented as of this encounter
--- OUTSIDE RECORDS SUMMARY | 2023-12-03 02:09 | XMS_ITS | Encounter Summary ---
Author Organization [facility] Address [address] [place] [address] Care Team Providers Care Resaw Tailer Name Role Phone Unavailable Primary Care Provider Unavailabl e Encounter Details Date Type Department Care Team (Latest Contact Info) Description 11/17/2007 12:54 EDT Hospital Encounter [facility]- [address] [address] Cindy Saldana MD 1 [facility] Level [address] [place] [phone] Discharge Disposition: Auto Discharge Social History Tobacco [...] 05/20/2024 14:45 EST Office Visit [facility] Adult Primary Care - [address] [phone] Jasmyne Poe MD [address] [place] [phone] documented as of this encounter Visit Diagnoses Not on filedocumented in this encounter
--- OUTSIDE RECORDS SUMMARY | 2023-12-03 02:09 | XMS_ITS | Encounter Summary ---
Author Organization [facility] Address [address] [place] [address] Care Team Providers Care Psychopaedic Nurse Name Role Phone Jasmyne Poe MD Primary Care Provider + Encounter Details Date Type Department Care Team (Latest Contact Info) Description 03/12/2017 10:29 EST - 03/12/2017 23:59 EST Hospital Encounter [address] [id number] Unknown, Provider, Jasmyne Poe MD [address] [place] [phone] Discharge Disposition: Auto Discharge Social History Tobacco [...] No 03/05/2017 documented as of this encounter Discharge Diagnoses Diagnosis R00.2 Palpitations-R00.2[ICD-10-CM] documented in this encounter Medications at Time [...] (MULTI VITAMIN ORAL) Take by mouth. 10/24 polyethylene glycol (GOLYTELY;NULYTELY) 236-22.74-6.74 -5.86 gram suspension Instructions mailed once procedure scheduled. Questions: [facility] Gastroenterology: [phone] or GI Doctor's Office. 4000 mL 03/08/2017 09/04/2017 sertraline (ZOLOFT) 25 mg tablet Take 25 mg by mouth daily. 10/08/2017 documented as of this encounter Discharge Disposition Disposition Code Departure Means Destination Auto Discharge Home documented in this encounter Plan of Treatment Upcoming Encounters Date Type Department Care Team (Late st Contact Info) Description 05/20/2024 14:45 EST Office Visit [facility] Adult Primary Care - [address] [phone] Jasmyne Poe MD [address] [place] [phone] documented as of this encounter Visit Diagnoses Not on filedocumented in this encounter Care Teams Psychopaedic Nurse Relationship Specialty Start Date End Date Jasmyne Poe MD [address] [place] [phone] PCP - General 01/07/13 documented as of this encounter
--- OUTSIDE RECORDS SUMMARY | 2023-12-03 02:09 | XMS_ITS | Encounter Summary ---
Author Organization [facility] Address [address] [place] [address] Care Team Providers Care Bobbin Winder Name Role Phone Jasmyne Poe MD Primary Care Provider + Encounter Details Date Type Department Care Team (Late st Contact Info) Description 12/19/2015 Results Only [facility]- [facility] [phone] Maurice Angeles MD [address] [place] [phone] Social History Tobacco Use Types Packs/Day Years [...] Info) Description 05/20/2024 14:45 EST Office Visit [facility] Adult Primary Care - [address] [phone] Jasmyne Poe MD [address] [place] [phone] documented as of this encounter Procedures Procedure Name Priority Date/Time Associated Diagnosis Comments PAP TEST- RESULT ONLY Routine 12/19/2015 0:00 EDT documented in this encounter Results * PAP TEST- RESULT ONLY (12/19/2015 0:00 EDT) Pathology Report: CYTOPATHOLOGY REPORT Reports generated via electronic interface contain original data; however they are lacking the format of the original report. Caution should be taken when reading/interpret ing unformatted reports. Name: ? KIRSTEN ALMAGUER ? Accession #: ? [id number] ? : ? 1965 (Age: 50) ??F ?Collect Date: ? 12/19/2015 ? Location: ? [facility] ? Receive Date: ? 12/20/2015 ? Provider: MAURICE ANGELES MD Copy to: ? Final Report SPECIMEN ADEQUACY ? Satisfactory for Evaluation - transformation zone component present GENERAL CATEGORIZATION ? Epithelial Cell Abnormality INTERPRETATION ? Squamous Cell Abnormality - Atypical squamous cells, undetermined significance (ASC-US). EDUCATIONAL NOTES/RECOMMENDAT IONS ? [facility] recommends following ASCCP's 2012 Updated Consensus Guidelines for the Management of Abnormal Cervical Cancer Screening Tests and Cancer Precursors (JLGTD, 2013; 17(5):S1-S27). ??Consensus guidelines are available online at www.asccp.org. Previous Gynecologic Pathology: Yes: irreg PAP hx repeat today for 3 in a row Infection History: Neg for HPV: neg PAP/neg HRHPV 2014 Specimen/Source: ??Pap Test, Cervix/Endocervix , ThinPrep Imaging System with manual evaluation Document reviewed and electronically signed by: ? CALIN PIERCE MD ? Report ??Date: 12/26/2015 13:51 HPV with Pap Test ? Date Ordered: ? 12/26/2015 ? Status: ?? Signed Out ?Date Complete: ? 12/27/2015 ? By: ??System Interface ? Date Reported: ? 12/27/2015 ? Interpretation RESULT: Negative for HPV. No E6 or E7 mRNA is detected from HPV types 16,18,31,33,35, 39,45,51,52,56,58 ,59,66, and 68 by commission auditor mediated amplification. Comments Document reviewed and electronically signed by: ? System Interface ? Report date: 12/27/2015 By the signature above, the attending physician certifies that he/she has personally conducted a gross and/or microscopic examination of the described specimens and rendered or confirmed the above diagnosis. End of Report [facility] 12/19/2015 12/20/2015 Maurice Angeles MD PATHOLOGY ORDERABLES Performing Organization Address City/State/[facility] Co de Phone Number [facility] [address] [place] [address] documented in this encounter Visit Diagnoses Not on filedocumented in this encounter Care Teams Bobbin Winder Relationship Specialty Start Date End Date Jasmyne Poe MD [address] [place] [phone] PCP - General 01/07/13 documented as of this encounter
--- OUTSIDE RECORDS SUMMARY | 2023-12-03 02:09 | XMS_ITS | Encounter Summary ---
Author Organization [facility] Address [address] [place] [address] Care Team Providers Care Blacktop Spreader Name Role Phone None, Provider Primary Care Provider Unavailabl e Encounter Details Date Type Department Care Team (Late st Contact Info) Description 11/25/2012 Results Only [facility]- [facility] [phone] Florencia Paniagua, MOS[place] [address] [phone] Social History Tobacco Use Types [...] 05/20/2024 14:45 EST Office Visit [facility] Adult Primary Care - [address] [phone] Jasmyne Poe MD [address] [place] [phone] documented as of this encounter Procedures Procedure Name Priority Date/Time Associated Diagnosis Comments SURGICAL PATHOLOGY Routine 11/25/2012 14 :58 EDT documented in this encounter Results * SURGICAL PATHOLOGY (11/25/2012 14:58 EDT) Pathology Report: SURGICAL PATHOLOGY REPORT Reports generated via electronic interface contain original data; however they are lacking the format of the original report. Caution should be taken when reading/interpreti ng unformatted reports. Name: ? KIRSTEN ALMAGUER ? Accession #: ? [id number] ? : ? 1965 (Age: 47) ??F ? Collect Date: ? 11/25/2012 ? Location: ? [facility] ? Receive Date: ? 11/25/2012 ? Provider: FLORENCIA MESA Copy to: ? Final Pathologic Diagnosis: SKIN OF CHEEK, LEFT SUPERIOR CENTRAL MALAR, SHAVE BIOPSY: - Solar lentigo. Document reviewed and electronically signed by: SUKHDEEP WEEKS MD Report ??Date: 11/26/2012 18:46 By the signature above, the attending physician certifies that he/she has personally conducted a gross and/or microscopic examination of the described specimens and rendered or confirmed the above diagnosis. Specimen(s) Received: Left superior central malar cheek Clinical History: Suspicious irregular pigmented patch on sun exposed skin and with slate whelan dots and globules on ELM; DDx: Lentigo maligna vs lichen planus-like keratosis; clinical diagnosis code: ??238.2 Gross Description: ? Received in formalin labelled with proper patient identification (initials P, S) and A left superior central malar is a shave biopsy of whelan-brown skin (0.5 x 0.2 cm). ??Submitted intact in 1. Bernice Bowen 11/25/2012 03:37 PM End of Report [facility] 11/25/2012 14:5 8 EDT 11/25/2012 14:58 EDT Florencia MESA PATHOLOGY ORDERABL ES [facility] [address] [place] [address] documented in this encounter Visit Diagnoses Not on filedocumented in this encounter Care Teams Blacktop Spreader Relationship Specialty Start Date End Date None, Provider PCP - General 09/02/12 01/06/13 documented as of this encounter
--- OUTSIDE RECORDS SUMMARY | 2023-12-03 02:09 | XMS_ITS | Encounter Summary ---
Author Organization Health system Address [address] [place] [address] Care Team Providers Care Framing Mill Supervisor Name Role Phone Jasmyne Poe MD Primary Care Provider + Encounter Details Date Type Department Care Team (Late st Contact Info) Description 05/23/2015 9:13 EST - 05/23/2015 9:[address] [facility] Hospital Encounter [facility] - [address] [address] Florencia Paniagua, [place] [address] [phone] Discharge Disposition: Home or Self [...] file documented as of this encounter Discharge Diagnoses [...] 200 mg by mouth as needed. 11/24/2019 melatonin 3 mg tablet Take by mouth as needed. 05/19/2023 MULTIVIT &MINERALS/FERROUS FUM (MULTI VITAMIN ORAL) Take by mouth. 10/24 documented as of this encounter Discharge Disposition Disposition Code Departure Means Destination Home or Self Care documented in this encounter Plan of Treatment Upcoming Encounters Date Type Department Care Team (Late st Contact Info) Description 05/20/2024 14:45 EST Office Visit [facility] Adult Primary Care [address] [phone] Jasmyne Poe MD [address] [place] [phone] documented as of this encounter Visit Diagnoses Not on filedocumented in this encounter Care Teams Framing Mill Supervisor Relationship Specialty Start Date End Date Jasmyne Poe MD [address] [place] [phone] PCP - General 01/07/13 documented as of this encounter
--- OUTSIDE RECORDS SUMMARY | 2023-12-03 02:09 | XMS_ITS | Encounter Summary ---
Author Organization [facility] Address [address] [place] [address] Care Team Providers Care Chair Inspector And Leveler Name Role Phone Jasmyne Poe MD Primary Care Provider + Encounter Details Date Type Department Care Team (Latest Contact Info) Description 12/09/2013 15:42 EDT - 12/09/2013 23:59 EDT Hospital Encounter [facility] - [address] [place] [address] Jasmyne Poe MD [address] [place] [phone] Discharge Disposition: Home or Self Care Social [...] as of this encounter Discharge Diagnoses Diagnosis V72.5 RADIOLOGICAL EXAM NEC[ICD-9-CM] documented in this encounter Medications at Time [...] 200 mg by mouth as needed. 11/24/2019 MULTIVIT &MINERALS/FERROUS FUM (MULTI VITAMIN ORAL) Take by mouth. 10/24 documented as of this encounter Discharge Disposition Disposition Code Departure Means Destination Home or Self Long-Term documented in this encounter Plan of Treatment Upcoming Encounters Date Type Department Care Team (Late st Contact Info) Description 05/20/2024 14:45 EST Office Visit [facility] Adult Primary Care [address] [phone] Jasmyne Poe MD [address] [place] [phone] documented as of this encounter Visit Diagnoses Not on filedocumented in this encounter Care Teams Chair Inspector And Leveler Relationship Specialty Start Date End Date Jasmyne Poe MD [address] [place] [phone] PCP - General 01/07/13 documented as of this encounter
--- OUTSIDE RECORDS SUMMARY | 2023-12-03 02:09 | XMS_ITS | Encounter Summary ---
Author Organization [facility] Address [address] [place] [address] Care Team Providers Care Malt House Supervisor Name Role Phone Jasmyne Poe MD Primary Care Provider + Encounter Details Date Type Department Care Team (Late st Contact Info) Description 05/21/2017 Results Only [facility] Adult Primary Care - [address] [address] Jasmyne Poe MD [address] [place] [phone] Social History Tobacco Use Types Packs/Day [...] Info) Description 05/20/2024 14:45 EST Office Visit [facility] Adult Primary Care - [place] [address] [place], [place] [phone] Jasmyne Poe MD [address] [place] [phone] documented as of this encounter Procedures Procedure Name Priority Date/Time Associated Diagnosis Comments VITAMIN D (25,OH) Routine 05/21/2017 11: 24 EST documented in this encounter Results * VITAMIN D (25,OH) (05/21/2017 11:24 EST) 25OH Vitamin D Tot 58.6 30 - 100 ng/ml 05/22/2017 13:37 EST [facility] Comment: Reference Range: Deficient = <10 ng/ml Insufficient = 10-30 ng/ml Sufficient = 30-100 ng/ml Toxic = >100 ng/ml BLOOD SPECIMEN / Unknown 05/21/2017 11:24 EST 05/21/2017 13:53 EST Jasmyne Poe MD CHEMISTRY & BLOO D GAS ORDERABLES [facility] [address] [place] [address] documented in this encounter Visit Diagnoses Not on filedocumented in this encounter Care Teams Malt House Supervisor Relationship Specialty Start Date End Date Jasmyne Poe MD [address] [place] [phone] PCP - General 01/07/13 documented as of this encounter
--- OUTSIDE RECORDS SUMMARY | 2023-12-03 02:09 | XMS_ITS | Encounter Summary ---
Author Organization [facility] Address [address] [place] [address] Care Team Providers Care Bottom Loader Name Role Phone Jasmyne Poe MD Primary Care Provider + Reason for Referral * Cardiology (Routine) - Closed Specialty Diagnoses / Procedures Referred By Contromeo t Referred To Contact Diagnoses Paroxysmal atrial fibrillation (HCC-CMS) Procedures ECHOCARDIOGRAM Jasmyne Poe MD [address] [place] [phone] Referral ID Status Reason Start Date Expiration Date Visits Re quested Visits Authorized [id number] Closed 02/13/2018 1 1 Reason for Visit * Reason Comments Follow-up Encounter Details Date Type Department Care Team (Late st Contact Info) Description 02/13/2018 11:30 EDT Office Visit [facility] Adult Primary Care - [address] [address] Jasmyne Poe MD [address] [place] [phone] Paroxysmal atrial fibrillation (HCC-CMS) (Primary Dx); Hyperglycemia Social History Tobacco Use Types Packs/Day Years [...] Sign Reading Time Taken Comments Blood Pressure 150/72 02/13/2018 1126 EDT Pulse 84 02/13/2018 1126 EDT Temperature 36.6 ??C (97.9 ??F) 02/13/2018 1126 EDT Respiratory Rate 12 02/13/2018 1126 EDT Oxygen Saturation - - Inhaled Oxygen Concentration - - Weight 94.3 kg (208 lb) 02/13/2018 1126 EDT Height 175.3 cm (5' 9) 02/13/2018 112 EDT Body Mass Index 30.72 02/13/2018 1126 EDT documented in this encounter Functional Status [...] Date End Da te DILTiazem (CARDIZEM CD) 180 mg ER capsule Take 1 Cap by mouth daily. 30 Cap 5 02/13/2018 02/25/2018 documented in this encounter Progress Notes * Agustín Shah - 02/13/2018 1130 EDT KN * Jasmyne Poe MD - 02/13/2018 1130 EDT Patient ID: Kirsten Almaguer is 52 y.o. y.o female Patient Active Problem List Diagnosis ??? Osteoarthritis ??? Allergy to penicillin ??? Anxiety ??? Acquired hypothyroidism Chief Complaint: Follow-up Subjective: Kirsten is here for follow-up of palpitations. She has a long history of palpitations which first started in her 20s. She had a work-up then including an echocardiogram but no treatment. More recently she experienced pronounced palpitations during the night for 2 episodes and then wentto the emergency room on January 07 when she experienced a 3rd episode shortly after leaving workon that day. In the emergency room, the monitor showed SVT versus atrial fibrillation with a rate of 150. She converted to sinus rhythm after a dose of IV diltiazem. She was discharged home with a Zio patch monitor which recorded her heart rhythm for 2 days. This showed a baseline normal sinus rhythm with episodes of atrial fibrillation, the longest occurring 3 hours and 49 minutes with an average rate of 75. She also started an aspirin 325 mg daily. She has had mild symptoms of palpitations since she starting the diltiazem. Her TSH was slightly elevated in the emergency room on the but I do not have a copy of these results. She does use levothyroxine 50 mcg daily for a diagnosis of hypothyroidism and this has been managed by her MANAGED CARE SPECIALIST, who recently . She denies any symptoms of obstructive sleep apnea. She does not drink alcohol. She has no history of chronic lung disease She exercises on the [employer] machine or walking about 3 times a week and does not experience anychest pain, pressure, shortness of breath, dizziness, or palpitations while she is exercising. Current Outpatient Prescriptions: B Complex Vitamins (VITAMIN B COMPLEX) tablet Take 1 Each by mouth daily. cholecalciferol, Vitamin D3, 2,000 unit tablet Take by mouth. Diltiazem HCl 120 mg tablet extended release 24 hr Take 120 mg by mouth daily. ibuprofen (MOTRIN) 200 mg tablet Take 200 mg by mouth as needed. levothyroxine (SYNTHROID) 50 mcg tablet Take 50 mcg by mouth daily. Magnesium 250 mg tablet Take 1 Each by mouth daily. melatonin 3 mg tablet Take by mouth at bedtime. MULTIVIT &MINERALS/FERROUS FUM (MULTI VITAMIN ORAL) Take by mouth. sertraline (ZOLOFT) 25 mg tablet Take 1 Tab by mouth daily. Allergies Allergen Reactions ??? Penicillins Anaphylaxis ??? Sulfa (Sulfonamide Antibiotics) Rash System Negative Positive Comment Constitutional X Eyes ENT Pulmonary X Cardiovascular X palpitations Gastrointestinal X Musculoskeletal Neurologic X Hematologic Dermatologic Other Objective: BP (!) 150/72 Pulse 84 Temp 36.6 ??C (97.9 ??F) (Tympanic) Resp 12 Ht 175.3 cm (69) Wt 94.3 kg (208 lb) BMI 30.72 kg/m2 General: She is alert, pleasant, and in no apparent discomfort Lungs: Clear in all lung negrete Cardiac: Regular rhythm with no murmur or click Extremities: No cyanosis or edema. BP Readings from Last 3 Encounters: 02/13/18 (!) 150/72 05/21/17 129/60 03/05/17 (!) 143/67 LABS: Results for orders placed or performed in visit on 09/10/17 SURGICAL PATHOLOGY Result Value Ref Range Pathology Report: SURGICAL PATHOLOGY REPORT Reports generated via electronic interface contain original data; however they are lacking the format of the original report. Caution should be taken when reading/interpreting unformatted reports. 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 See microscopic. Microscopic Description: Sections reveal a broad and asymmetrical compound melanocytic proliferation. Along the junction, there are variably sized nests located predominantly along the jordyn es and tips of rete ridges. Within the dermis, there are small nests and singly dispersed hyperchromatic bland-appearing melanocytes which show maturation with descent. The lesion extends both to the biopsy base and peripheral edge. Geophysical Laboratory Chief slides of this case were reviewed at intradepartmental consultation conference. (Dr. Campos)/jds Document reviewed and electronically signed by: JASMYNE CAMPOS MD Report Date: 09/12/2017 14:42 By the signature above, the attending physician certifies that he/she has personally conducted a gross and/or microscopic examination of the described specimens and rendered or confirmed the above diagnosis. Specimen(s) Received: Left medial dorsal foot shave biopsy Clinical History: Irregular speckled macule, DDx: Atypical nevus vs. acral melanoma vs other; excision with Dr. Roy; clinical diagnosis code: D48.5 Gross Description: Received in formalin labelled with proper patient identification (initials P, S) and left medial dorsal foot is a shave biopsy of a barker-whelan encrusted skin (1.0 x 0.5 x 0.3 cm). The specimen is inked, bisected, and submitted in 1. MOSHE Li ([facility]) 09/10/2017 2:41 PM End of Report Assessment: 52-year-old woman with a history of palpitations here for evaluation of new onset atrial fibrillation documented on ambulatory monitoring. She has been experiencing palpitations for years. She is at low risk for thromboembolic disease with a Chads 2 score of 1 (for hypertension, a new diagnosis for her). She is taking a full-strength aspirin. Her blood pressure and heart rate are relatively increased today and I will increase her diltiazem 180 mg daily. Echocardiogram ordered to rule out a structural abnormality of the heart as a potential cause of atrial fibrillation. Blood work ordered for comprehensive metabolic panel, hemoglobin A1C, and TSH. She will have these done at an outside lab. Plan: As above She has follow-up with cardiology in March. Today's face to face visit time was 25 minutes and 10 minutes of that time was spent in counseling and/or coordination of care for the problems listed above. documented in this encounter Plan of Treatment Upcoming Encounters Date Type Department Care Team (Late st Contact Info) Description 05/20/2024 14:45 EST Office Visit [facility] Adult Primary Care - [address] [phone] Jasmyne Poe MD [address] [place] [phone] documented as of this encounter Procedures Procedure Name Priority Date/Time Associated Diagnosis Comments ECHOCARDIOGRAM Routine 02/24/2018 15:50 EST Paroxysmal atrial fibrillation (HCC-CMS) documented in this encounter Results * ECHOCARDIOGRAM (02/24/2018 15:50 EST) Anatomical Region Laterality Modality Other 02/24/2018 15:5 0 EST Narrative 02/24/2018 16:43 EST *Interpreting Group:* *[facility]* [address] [place] [address] Date of study: 02/24/2018 Transthoracic Echocardiography M-mode, complete 2D, complete spectral Doppler, and color Doppler *STUDY CONCLUSIONS* Summary: 1. Left ventricle: The cavity size was normal. Wall thickness was ?? increased in a pattern of mild LVH. Systolic function was normal. The ?? estimated ejection fraction was 60-65%. Wall motion was normal; there ?? were no regional wall motion abnormalities. 2. Left atrium: The atrium was moderately dilated. 3. Right ventricle: The cavity size was normal. Systolic function was ?? normal. 4. Pulmonary arteries: Pulmonary systolic pressure was mildly to ?? moderately increased, in the range of 40mm Hg to 45mm Hg. *PATIENT PRESENTATION* Height: ? 175.3cm ((69in) ) S/D Pressure: 165 / 65 Weight: ? 94.3kg ((207.6lb) ) BSA: ?2.17m^2 Test start time: ??03:15 PM. Test stop time: ??03:40 PM. ATTENDING ?Jasmyne Poe ORDERING ? Jasmyne Poe REFERRING ?Jasmyne Poe FELLOW ? Lorenza Bosch MD REFERRING ?Jasmyne Poe e PERFORMING ?? [facility], Op CIVIL PREPAREDNESS OFFICER ??Luis Angel Jason *PROCEDURE DATA* Procedure information: ??The patient was identified by two identifiers. This study was interpreted by [facility]. Pertinent images and digital data are archived for permanent storage and are available for subsequent review. ??Study status: Routine. Transthoracic echocardiography. ??M-mode, complete 2D, complete spectral Doppler, and color Doppler. A Transthoracic Echocardiogram was performed. Scanning was performed from the parasternal, apical, subcostal, and suprasternal notch acoustic windows. Images were obtained using a Mary [id number] 7 cardiac ultrasound machine. Image quality was adequate. The study was technically limited due to body habitus. ??Study completion: ??The patient tolerated the procedure well. *INDICATIONS AND HISTORY* Indications: ??I48.0 *CARDIAC ANATOMY* Left ventricle: ??The cavity size was normal. Wall thickness was increased in a pattern of mild LVH. Systolic function was normal. The estimated ejection fraction was 60-65%. Wall motion was normal; there were no regional wall motion abnormalities. Diastolic parameters were not diagnostic. Aortic valve: ?? Trileaflet; normal thickness leaflets. Mobility was not restricted. ??Doppler: ??Transvalvular velocity was within the normal range. [...] Hg. Peak gradient (S): 14mm Hg. Aorta: ??Aortic root: The aortic root was normal in size. Mitral valve: ?? Structurally normal valve. ?? Mobility was not restricted. ??Doppler: ??Transvalvular velocity was within the normal range. There was no evidence for stenosis. There was trivial regurgitation. ?Peak gradient (D): 4.4mm Hg. Left atrium: ??The atrium was moderately dilated. Right ventricle: ??The cavity size was normal. Systolic function was normal. Pulmonic valve: ?? Not well visualized. ??Doppler: ??Transvalvular velocity was within the normal range. There was no evidence for stenosis. There was no significant regurgitation. Tricuspid valve: ?? Structurally normal valve. ?Doppler: ??Transvalvular velocity was within the normal range. There was no evidence for stenosis. There was trivial regurgitation. Pulmonary artery: ?? Pulmonary systolic pressure was mildly to moderately increased, in the range of 40mm Hg to 45mm Hg. Right atrium: ??The atrium was normal in size. Pericardium: ??There was no pericardial effusion. Systemic veins: Inferior vena cava: The vessel was mildly dilated. Measurements Left ventricle ? Value ?Reference LV ID, ED, PLAX ?4.6 ?? cm ? 3.5 - 6.0 LV ID, ES, PLAX ?2.9 ?? cm ? 2.1 - 4.0 LV PW thickness, ED, PLAX ?1.2 ?? cm ? LV end-diastolic volume, 1-p A4C ? 86 ?ml ? LV ejection fraction, 1-p A4C ?77 ?% ? LV e', lateral ? 0.106 m/sec ? LV E/e', lateral ? 10 ? LV e', medial ?0.082 m/sec ? LV E/e', medial ?13 ? LV e', average ? 0.094 m/sec ? LV E/e', average ? 11 ? Ventricular septum ? Value ?Reference IVS thickness, ED, PLAX ?1.1 ?? cm ? LVOT ? Value ?Reference LVOT ID, S ? 2.0 ?? cm ? LVOT area ?3.1 ?? cm^2 ? LVOT peak velocity, S ?1.41 ??m/sec ? LVOT mean velocity, S ?0.93 ??m/sec ? LVOT VTI, S ?31.0 ??cm ? LVOT peak gradient, S ?8 ? mm Hg ? LVOT mean gradient, S ?4 ? mm Hg ? Stroke volume (SV), LVOT DP ?97 ?ml ? Stroke index (SV/bsa), LVOT DP ? 45 ?ml/m^2 ?? Aortic valve ? Value ?Reference Aortic valve peak velocity, S ?1.8 ?? m/sec ? Aortic valve mean velocity, S ?1.17 ??m/sec ? Aortic valve VTI, S ?35.4 ??cm ? Aortic mean gradient, S ?6 ? mm Hg ? Aortic peak gradient, S ?14 ?mm Hg ? VTI ratio, LVOT/AV ? 0.88 ? Aortic valve area, VTI ? 2.8 ?? cm^2 ? Velocity ratio, peak, LVOT/AV ?0.77 ? Aortic valve area, peak velocity ? 2.4 ?? cm^2 ? Velocity ratio, mean, LVOT/AV ?0.8 ? Aortic valve area, mean velocity ? 2.5 ?? cm^2 ? Aortic valve area/bsa, mean velocity ? 1.2 ?? cm^2/m^2 Aorta ?Value ?Reference Aortic root ID ? 2.8 ?? cm ? Left atrium ?Value ?Reference LA ID, A-P, ES ? 4.2 ?? cm ? LA ID/bsa, A-P ? 1.9 ?? cm/m^2 ?? <=2.2 LA ID, M-L, A4C ?(H) ? 6.2 ?? cm ? 2.9 - 4.9 LA area, ES, A4C ? (H) ? 26.7 ??cm^2 ? 8.8 - 23.4 LA volume, ES, 1-p A4C ? 94 ?ml ? LA volume/bsa, ES, 1-p A4C ? 43 ?ml/m^2 ?? LA volume, ES, A/L ? 94 ?ml ? LA volume/bsa, ES, A/L ? 43 ?ml/m^2 ?? LA/aortic root ratio ? 1.5 ? Mitral valve ? Value ?Reference Mitral E-wave peak velocity ?1.05 ??m/sec ? Mitral A-wave peak velocity ?0.86 ??m/sec ? Mitral deceleration time ? 194 ?? ms ? 150 - 230 Mitral peak gradient, D ?4.4 ?? mm Hg ? Mitral E/A ratio, peak ? 1.2 ? Legend: (L) ??and ??(H) ??lily values outside specified reference range. I have personally reviewed the images and have reviewed and edited the reported findings. Electronically signed by Adriano Cyr MD 02/24/2018 16:43 Procedure Note Adriano Cyr MD - 02/24/2018 *Interpreting Group:* *[facility]* [address] [place] [address] Date of study: 02/24/2018 Transthoracic Echocardiography M-mode, [...] Jasmyne Poe ORDERING Jasmyne Poe REFERRING Jasmyne Poe FELLOW Lorenza Bosch MD REFERRING Jasmyne Poe e PERFORMING [facility], [facility] CIVIL PREPAREDNESS OFFICER Luis Angel Jason *PROCEDURE DATA* Procedure information: The patient was identified by two identifiers. This study was interpreted by [facility]. Pertinent images and digital [...] edited the reported findings. Electronically signed by Adriano Cyr MD 02/24/2018 16:43 Jasmyne Poe MD CARDIAC ECHO ORD ERABLES documented in this encounter Visit Diagnoses Diagnosis Paroxysmal atrial fibrillation (HCC-CMS)- Primary Atrial fibrillation Hyperglycemia Other abnormal glucose documented in this encounter Discontinued Medications Medication Sig Discontinue Reason Start Date End Da te Diltiazem HCl 120 mg tablet extended release 24 hr Take 120 mg by mouth daily. Dose adjustment 02/10/2018 02/13/2018 documented as of this encounter Care Teams Bottom Loader Relationship Specialty Start Date End Date Jasmyne Poe MD [address] [place] [phone] PCP - General 01/07/13 documented as of this encounter
--- OUTSIDE RECORDS SUMMARY | 2023-12-03 02:09 | XMS_ITS | Encounter Summary ---
Author Organization [facility] Address [address] [place] [address] Care Team Providers Care Type Casting Machine Operator Name Role Phone Jasmyne Poe MD Primary Care Provider + Reason for Referral * Consult (Routine) - Specialty Report Received Specialty Diagnoses / Procedures Referred By [facility] Referred To Contact Cardiology Diagnoses SVT (supraventricular tachycardia) ([facility]) Jasmyne Poe MD [address] [place] [phone] [facility] Cardiology [address] [place] [id number] Referral ID Status Reason Start Date Expiration Date Visits Requested Visits Authorized [id number] Specialty Report Received Specialty Services Required 01/09/2018 1 1 Question Answer Reason for Request: new onset arrythmia, seen at ED in [facility] was SVT vs atrial fibrillation, Zio patch placed, converted with diltiazem Reason for Visit * Reason Onset Date Comments Atrial Fibrillation 01/08/2018 Encounter Details Date Type Department Care Team (Late st Contact Info) Description 01/08/2018 Telephone [facility] Adult Primary Care - [place] [address] [place] [address] Jasmyne Poe MD [address] [place] [phone] Atrial Fibrillation Social History Tobacco Use Types [...] No 05/21/2017 documented as of this encounter Miscellaneous Notes * Telephone Encounter - Jasmyne Poe MD - 01/09/2018 1222 EDT Called patient. No symptoms right now and at work. Has been having episodes over the past few weeks. Was in NSR at discharge from ED. Cardiology referral done. She prefers to be seen at [facility]. Advised to go back to ED if she develops chest pain, dizziness, or shortness of breath. * Telephone Encounter - Trang Ivy RN - 01/09/2018 0923 EDT Kirsten; s: I've had 2 other episodes during the night ; it goes away in 2hrs; but his was during the day; and I felt heaviness in my chest O: rapid; irregular heart rate; 145-150 Chest heaviness Seen at [facility] ED BP in ED: 180/100; shortness of breath ? Svt versus AFIb; EKG done; first interpretation : undetermined tachycardia; rate 150; normal axis; nonspecific st t wave changes; 2nd ekg shows normal sinus rhythm; normal axis normal pr , normal qrs and qt and not acute st t wave changes Chest heaviness increase with sudden acceleration of rate ditiazem given; with quick response; to nsr in 70s Troponin < 0.02 TSH is elevated; reflexed to free T4 wnl cxr reviewed by radiologist; no acute cardiopulmonary process noted RX: 120mg diltiazem po daily; zio patch for continued monitoring; 325mg asa [id number] score =1.pt prefers 325mg asa daily for short term anticoagulation Prefers: [facility] for consult and referral; not apposed to coming to [facility] GIVEN 14 day EVENT MONITOR; completion date: A: Medical records from [facility] ED to provider: DR POE for review Needs Cariology Consult P: Forward all to pcp DR POE * Telephone Encounter - Luna Earl - 01/09/2018 0919 EDT Pt returned triage call * Telephone Encounter - rTang Ivy RN - 01/09/2018 0908 EDT LM jolie dodd to call back to discuss plan outlined at ED ; [facility]. For dx of atrial fibrillation. * Telephone Encounter - Luna Earl - 01/08/2018 0813 EDT Pt seen last night at ER in [facility] ( pt works there)- DX with Afib- told to f/u with us Was put on Cardizem and 14 day monitor Pt will make sure info is faxed to us- fax number provided documented in this encounter Plan of Treatment Upcoming Encounters Date Type Department Care Team (Late st Contact Info) Description 05/20/2024 14:45 EST Office Visit [facility] Adult Primary [address] [address] Jasmyne Poe MD [address] [place] [phone] Scheduled Referrals Name Type Priority Associated Diagnoses Order Schedule AMB CONS/FOLLOW UP CARDIOLOGY Outpatient Referral Routine SVT (supraventricular tachycardia) (CMS-HCC) ([facility]) Ordered: 01/09/2018 documented as of this encounter Visit Diagnoses Diagnosis SVT (supraventricular tachycardia) ([facility])- Primary Other specified cardiac dysrhythmias documented in this encounter Care Teams Type Casting Machine Operator Relationship Specialty Start Date End Date Jasmyne Poe MD [address] [place] [phone] PCP - General 01/07/13 documented as of this encounter
--- OUTSIDE RECORDS SUMMARY | 2023-12-03 02:09 | XMS_ITS | Encounter Summary ---
Author Organization [facility] Address [address] [place] [address] Care Team Providers Care Board Hammer Operator Name Role Phone None, Provider Primary Care Provider Unavailabl e Encounter Details Date Type Department Care Team (Late st Contact Info) Description 12/30/2012 Abstract [facility] Adult Primary Care [facility] [address] [place], [place] [phone] Jasmyne Poe MD [address] [place] [phone] Social History Tobacco Use Types Packs/Day Years Used Date Smoking Tobacco: Never Assessed Sex and Gender Information Value Date Recorded Sex Assigned at Not on file Gender Identity Female 06/02/2019 15:13 EST Sexual Orientation Not on file documented as of this encounter Plan of Treatment Upcoming Encounters Date Type Department Care Team (Late st Contact Info) Description 05/20/2024 14:45 EST Office Visit [facility] [address] [place], [place] [phone] Jasmyne Poe MD [address] [place] [phone] documented as of this encounter Visit Diagnoses Not on filedocumented in this encounter Historical Medications * This list may reflect changes made after this encounter. Medication Sig Dispensed Refills Start Date End Date MULTIVIT &MINERALS/FERROUS FUM (MULTI VITAMIN ORAL) Take by mouth. 10/24 sertraline (ZOLOFT) 50 mg tablet Take 50 mg by mouth daily. 01/07/2013 added in this encounter Care Teams Board Hammer Operator Relationship Specialty Start Date End Date None, Provider PCP - General 09/02/12 01/06/13 documented as of this encounter
--- OUTSIDE RECORDS SUMMARY | 2023-12-03 02:09 | XMS_ITS | Encounter Summary ---
Author Organization [facility] Address [address] [place] [address] Care Team Providers Care Parks And Recreation Worker Name Role Phone Jasmyne Poe MD Primary Care Provider + Encounter Details Date Type Department Care Team (Late st Contact Info) Description 03/12/2017 Phlebotomy Only [facility] [address] [place] [address] Human Resources Assistant Manager, Outpatient Palpitations (Primary Dx) Social History Tobacco Use Types [...] No 03/05/2017 documented as of this encounter Plan of Treatment Upcoming Encounters Date Type Department Care Team (Late st Contact Info) Description 05/20/2024 14:45 EST Office Visit [facility] Adult Primary [address] [address] Jasmyne Poe MD [address] [place] [phone] documented as of this encounter Procedures Procedure Name Priority Date/Time Associated Diagnosis Comments TSH Routine 03/12/2017 10:32 EST Palpitations LIPID PROFILE (INCLUDES CHOLESTEROL, TRIGLYCERIDES, HDL, LDL) Routine 03/12/2017 10:32 EST Palpitations COMPREHENSIVE METABOLIC PANEL (CMP) Routine 03/12/2017 10:32 EST Palpitations documented in this encounter Results * COMPREHENSIVE METABOLIC PANEL (CMP) (03/12/2017 10:32 EST) Potassium 4.2 3.5 - 5.0 mEq/L 03/12/2017 12:24 [facility] Sodium 142 136 - 145 mEq/L 03/12/2017 12:24 [facility] Chloride 104 96 - 110 mEq/L 03/12/2017 12:24 [facility] CO2 31 22 - 32 mEq/L 03/12/2017 12:24 [facility] Total Alkaline Phosphatase 47 38 - 126 U/L 03/12/2017 12:24 [facility] Bilirubin, Total 0.6 <1.4 mg/dl 03/12/20 17 12:24 [facility] AST 15 15 - 46 U/L 03/12/2017 12:24 [facility] ALT 27 <53 U/L 03/12/2017 12:24 [facility] Albumin 4.1 3.4 - 4.9 g/dl 03/12/2017 12:24 [facility] Total Protein 6.5 6.3 - 8.2 g/dl 03/12/2017 12:24 [facility] Creatinine 0.63 0.52 - 1.04 mg/dl 03/12/2017 12:24 [facility] GFR, Calculated 105 >60 ml/min/1.7 3m2 03/12/2017 12:24 [facility] Comment: eGFR calculated using CKD-EPI equation for non Americans. Multiply eGFR by 1.16 for Americans. BUN 15 10 - 26 mg/dl 03/12/2017 12:24 [facility] Calcium 8.7 8.5 - 10.5 mg/dl 03/12/2017 12:24 [facility] Calculated Calcium 8.6 8.5 - 10.5 mg/dl 03/12/2017 12:24 [facility] Glucose, Serum 94 70 - 100 mg/dl 03/12/2017 12:24 [facility] Fasting? YES 03/12/2017 10:32 [facility] Blood specimen (specimen) BLOOD SPECIMEN / Unknown 03/12/2017 10:32 EST 03/12/2017 11:48 EST Jasmyne Poe MD CHEMISTRY & BLOO D GAS ORDERABLES [facility] [address] [place] [address] * LIPID PROFILE (INCLUDES CHOLESTEROL, TRIGLYCERIDES, HDL, LDL) (03/12/2017 10:32 EST) Cholesterol 149 mg/dl 03/12/2017 12:24 [facility] Comment: Desirable:<200 Borderline High:200-239 High:>nd=756 Triglycerides 94 mg/dl 03/12/2017 12:24 [facility] Comment: Normal:<150 Borderline High:150-199 High:200-499 Very High:>uy=233 HDL 42 mg/dl 03/12/2017 12:24 [facility] Comment: Low:<40 Normal:40-60 Desirable: >60 LDL, Calculated 88 mg/dl 7 12:24 [facility] Comment: Optimal:<100 Near Optimal:100-129 Borderline High:130-159 High:160-189 Very High:>za=150 Chol/HDL Ratio 3.5 03/12/2017 12:24 [facility] Fasting? YES 03/12/2017 10:32 EST [facility] Non HDL Cholesterol 107 mg/dl 03/12/2017 12:24 EST [facility] Comment: Desirable:<130 Borderline:130-159 High: 160-189 Very High: >pg=119 Blood specimen (specimen) BLOOD SPECIMEN / Unknown 03/12/2017 10:32 EST 03/12/2017 11:48 EST Jasmyne Poe MD CHEMISTRY & BLOO D GAS ORDERABLES Performing Organization Address City/[facility]/ZIP Co de Phone Number [facility] [address] [place] [address] * TSH (03/12/2017 10:32 EST) TSH 1.67 0.47 - 4.68 uIU/ml 03/12/2017 12:53 EST [facility] Comment:New methodology in u se 10/16/16. Blood specimen (specimen) BLOOD SPECIMEN / Unknown 03/12/2017 10:32 EST 03/12/2017 11:48 EST Jasmyne Poe MD CHEMISTRY & BLOO D GAS ORDERABLES Performing Organization Address City/[facility] Co de Phone Number [facility] [address] [place] [address] documented in this encounter Visit Diagnoses Diagnosis Palpitations- Primary documented in this encounter Care Teams Parks And Recreation Worker Relationship Specialty Start Date End Date Jasmyne Poe MD [address] [place] [phone] PCP - General 01/07/13 documented as of this encounter
--- OUTSIDE RECORDS SUMMARY | 2023-12-03 02:09 | XMS_ITS | Encounter Summary ---
Author Organization [facility] Address [address] [place] [address] Care Team Providers Care Outreach Analyst Name Role Phone None, Provider Primary Care Provider Unavailabl e Reason for Visit * Reason Onset Date Comments Other 12/29/2012 old medical alexis rds Encounter Details Date Type Department Care Team (Late st Contact Info) Description 12/29/2012 Telephone [facility] Adult Primary Care - [address] [address] Jasmyne Poe MD [address] [place] [phone] Other (old medical records) Social History Tobacco Use Types Packs/Day Years Used Date Smoking Tobacco: Never Assessed Sex and Gender Information Value Date Recorded Sex Assigned at Not on file Gender Identity Female 06/02/2019 15:13 EST Sexual Orientation Not on file documented as of this encounter Miscellaneous Notes * Telephone Encounter - Luna Earl - 12/29/2012 1212 EDT Phoned pt- new patient visit on 01/07/13- old records not received- 2 release forms faxed to her ather request 1- for former PCP 2- 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
--- OUTSIDE RECORDS SUMMARY | 2023-12-03 02:09 | XMS_ITS | Encounter Summary ---
Author Organization [facility] Address [address] [place] [address] Care Team Providers Care Cnc Specialist Name Role Phone Jasmyne Poe MD Primary Care Provider + Reason for Referral * Consult (Routine) - Specialty Report Received Specialty Diagnoses / Procedures Referred By Meka james Referred To Contact Orthopedic Surgery Diagnoses Right shoulder pain Jasmyne Poe MD [address] [place] [phone] [facility] [place] [place] [address] Referral ID Status Reason Start Date Expiration Date Visits Requested Visits Authorized [id number] Specialty Report Received Specialty Services Required 12/10/2013 1 1 Question Answer Reason for Request: one year shoulder pain, rotator cuff tear on MRI Encounter Details Date Type Department Care Team (Late st Contact Info) Description 12/10/2013 Orders Only [facility] Adult Primary Care - [place] [address] [place] [address] Jasmyne Poe MD [address] [place] [phone] Right shoulder pain (Primary Dx) Social [...] Progress Notes * Jasmyne Poe MD - 12/10/2013 1259 EDT Message left for patient to call back regarding MRI results documented in this encounter Plan of Treatment Upcoming Encounters Date Type Department Care Team (Late st Contact Info) Description 05/20/2024 14:45 EST Office Visit [facility] Adult Primary Care [address] [phone] Jasmyne Poe MD [address] [place] [phone] Scheduled Referrals Name Type Priority Associated Diagnoses Order Schedule AMB CONS/FOLLOW UP ORTHOPEDICS Outpatient Referral Routine Right shoulder pain Ordered: 12/10/2013 documented as of this encounter Visit Diagnoses Diagnosis Right shoulder pain- Primary Pain in joint, shoulder region documented in this encounter Care Teams Cnc Specialist Relationship Specialty Start Date End Date Jasmyne Poe MD [address] [place] [phone] PCP - General 01/07/13 documented as of this encounter
--- OUTSIDE RECORDS SUMMARY | 2023-12-03 02:09 | XMS_ITS | Encounter Summary ---
Author Organization [facility] Address [address] [place] [address] Care Team Providers Care Software Engineering Associate Manager Name Role Phone Jasmyne Poe MD Primary Care Provider + Reason for Visit * Reason Onset Date Comments Medication Problem 10/08/2017 Encounter Details Date Type Department Care Team (Late st Contact Info) Description 10/08/2017 Telephone [facility] Adult Primary Care - [address] [address] Jasmyne Poe MD [address] [place] [phone] Medication Problem Social History Tobacco Use Types Packs/Day Years [...] Telephone Encounter - Lani Johns RN - 10/27/2017 0944 EDT Medication note added to the med list to reflect that the dose needs to be clarified prior to next refill. Lani Johns RN * Telephone Encounter - Jasmyne Poe MD - 10/27/2017 0725 EDT I will assume she got a refill from her [facility] in [place]. Would you add a medication note that the dose needs to be confirmed if she calls for a refill in the future? * Telephone Encounter - Lani Johns RN - 10/21/2017 1342 EDT Outgoing call to the patient. VM message left to request that the patient call the office back to review Zoloft dosing and to seeif she is seeing a different MD in [facility]. Lani Johns RN * Telephone Encounter - Lani Johns RN - 10/15/2017 0823 EDT Outgoing call to the patient. VM message left, requesting that she call the office back to confirm her dosing for Zoloft. Lani Johns RN * Telephone Encounter - Ijeoma Peter - 10/08/2017 1443 EDT SS attempted to call patient via cell phone No voice mail, no answer [employer] message sent to patient requesting she call to discuss Zoloft dosing * Telephone Encounter - Jasmyne Poe MD - 10/08/2017 1408 EDT Please call to clarify with her what dose she is using She [employer] message. * Telephone Encounter - Ijeoma Peter - 10/08/2017 1402 EDT [facility] pharmacy calling because they just received Zoloft 25mg RX by Dr Poe and also received today Zoloft 50mg, 1 po daily, #[address] Genet Camarena, [facility] [place], [place] [Count Includes [facility]] Pharmacy will not fill RX by Dr Poe until they hear back from our office documented in this encounter Plan of Treatment Upcoming Encounters Date Type Department Care Team (Late st Contact Info) Description 05/20/2024 14:45 EST Office Visit [facility] Adult Primary Care - [address] [phone] Jasmyne Poe MD [address] [place] [phone] documented as of this encounter Visit Diagnoses Not on filedocumented in this encounter Care Teams Software Engineering Associate Manager Relationship Specialty Start Date End Date Jasmyne Poe MD [address] [place] [phone] PCP - General 01/07/13 documented as of this encounter
--- NOTE | 2023-12-03 15:05 | DI.MAMMO_ITS ---
Exam(s) MAMMO SCREENING EXAM: MAMMO SCREENING CLINICAL HISTORY: screening TECHNIQUE: Bilateral full field digital CC and MLO mammographic images were obtained with 3D tomosyn thesis and utilizing computer aided detection (CAD). COMPARISON: Available for comparison. FINDINGS: Masses/Architectural Distortion: No suspicious nodules. Stable 5 mm nodule in the axillary tail of t he left breast which may represent a lymph node. No areas of architectural distortion. Microcalcifications: No suspicious pleomorphic-type are seen. Skin Thickening/Nipple Retraction: None. IMPRESSION: 1. No significant interval change with no specific features of malignancy noted. 2. Unless there is more urgent need, screening mammography is recommended, as per [employer] guidelines. BI-RADS Category 1 - Negative Breast Density - Category B - Scattered areas of fibroglandular density Breast density category C or D implies that the patient has dense breast tissue. Dense breast tissue is very common and is not abnormal but dense breast tissue can make it harder to find cancer on a ma mmogram. Also, dense breast tissue may increase their breast cancer risk. This information about the result of the mammogram report was provided to the patient to raise their awareness. Use this report when you speak with the patient about their risks for breast cancer, which includes their family hist ory. At that time, you may recommend for more screening tests (Ultrasound or MRI) as they might be us eful based on their risk. A negative radiographic report should not delay biopsy if a dominant or clinically suspicious mass is present. Up to ten percent of cancers are not identified on mammography. A negative report may reinforce clinical impression. Adenosis and dense breasts may obscure an underlying neoplasm. False positive reports average 6 to 10%. Patient will receive a letter notifying them of these results.
== END 2023-12-03 02:06 ==
LOC: DI 01:46
PROVIDERS: PCP Internal Medicine; Visit Provider Obstetrics & Gynecology Gynecology
DX: Z12.31 Encounter for screening mammogram for malignant neoplasm of breast (principal)
CPT/HCPCS: 77063; 77067

== ENCOUNTER 2024-05-20 09:41 | Outpatient (RCR) | payer OTHER, SELFPAY ==
[2024-05-20 12:02] LABS: Hemoglobin A1C 6.1 % (<5.7)
[2024-05-20 12:17] LABS: ALT 29 U/L (14-59); AST 20 U/L (15-37); Alkaline Phosphatase 81 U/L (46-116); Anion Gap 6.1 mmol/L (3-11); BUN 17 mg/dL (7-18); CO2 30.9 mmol/L (21.0-32.0); CREATININE 0.8 mg/dL (0.55-1.02); Calcium 9.1 mg/dL (8.5-10.1); Chloride 105 mmol/L (98-107); Estimated GFR 85.35 (mL/min/1.73m2); Glucose 130 mg/dL (74-106); Potassium 3.7 mmol/L (3.5-5.1); Sodium 142 mmol/L (136-145); TSH 1.77 uIU/mL (0.36-3.74); Total Protein 7.1 g/dL (6.4-8.2)
== END 2024-05-21 23:59 | disposition home or self-care (01) ==
LOC: INF 09:41
PROVIDERS: PCP Internal Medicine; Visit Provider Internal Medicine
DX: R73.03 Prediabetes (principal); E03.9 Hypothyroidism, unspecified
CPT/HCPCS: 36415; 80053; 83036; 84443

== ENCOUNTER 2024-12-21 09:19 | Outpatient (RCR) | payer OTHER, SELFPAY | END 2025-01-18 23:59 | disposition home or self-care (01) | LOC: INF 09:19 | PROVIDERS: PCP Internal Medicine; Visit Provider Obstetrics & Gynecology | DX: Z00.00 Encounter for general adult medical examination without abnormal findings (principal) | CPT/HCPCS: 36415 ==

== ENCOUNTER 2024-12-21 16:06 | Outpatient (REF) | payer OTHER, SELFPAY ==
[2024-12-21 13:36] LABS: HCT 39.8 % (36.0-46.0); HGB 13.5 g/dL (11.2-15.7); MCH 29.9 pg (27.0-33.0); MCHC 33.9 % (32.0-36.0); MCV 88 fL (80-95); MPV 9.4 fL (8.0-11.0); Platelet Count 217 10^3/uL (130-400); RBC 4.52 10^6/uL (3.93-5.22); RDW 12.7 % (11.7-14.6); RDW-SD 41.1 fL; WBC 7.21 10^3/uL (4.4-10.8)
== END 2024-12-21 16:07 | disposition home or self-care (01) ==
LOC: LBN 16:06
PROVIDERS: PCP Internal Medicine; Visit Provider Obstetrics & Gynecology
DX: Z01.818 Encounter for other preprocedural examination (principal)
CPT/HCPCS: 85027; 86850; 86900; 86901

== ENCOUNTER 2024-12-22 09:34 | Day surgery (SDC) | payer OTHER, SELFPAY ==
[2024-12-22 10:00] VITALS: BP 157/82; PULSE 68; RESP 18; TEMP 36.7; O2SAT 97
[2024-12-22] MEDS: Acetaminophen 500 MG TAB 1000 MG PO (10:21)
[2024-12-22] MEDS: Lactated Ringers 1,000 ML 150 ML IV (10:35)
--- NOTE | 2024-12-22 11:15 | RT.EKG_ITS ---
APPROVED REPORT Exam: Resting ECG Reason for Exam: Pre-op EKG Patient Location: O HR:81 bpm ECG Measurements Heart Rate 81 AXIS DC [id number] P [id number] QRSd 79 QRS 13 QT 426 T 3 QTc 496 Conclusion Sinus rhythm Multiple atrial premature beats Nondiagnostic ST-T abnormalities
--- NOTE | 2024-12-22 11:41 | W.ANESPRE ---
General Info Date of Service Date Performed: 12/19/24 Height: 5 ft 9 in Weight: 91.1 kg Body Mass Index (BMI): 29.6 Surgical Procedure: Operation Date: 12/22/24 10:55 Proposed Procedure Side Surgeon p Dilation & Curettage with Hysteroscopy Trang Ham, s Possible Insertion of IUD-Mirena Trang Ham DO Actual Procedure Side Surgeon p Dilation & Curettage with Hysteroscopy Not Applicable Trang Ham DO s Possible Insertion of IUD-Mirena Not Applicable Trang Ham DO Pre-Op Diagnosis Post-Op Diagnosis History of postmenopausal bleeding Meds Allergies and Home Medications Allergies Allergy/AdvReac Type Severity Reaction Status Date / Time Penicillins Allergy Intermediate Anaphylaxsi Verified 12/22/24 10:06 s Sulfa (Sulfonamide Allergy Intermediate Skin Rash Verified 12/22/24 10:06 Antibiotics) Home Medication ?Medication ?Instructions ?Recorded multivitamin-ferrous 1 ea PO DAILY 09/05/14 fumarate-folic acid 18 mg-400 mcg tablet (Daily Multiple) levothyroxine 50 mcg tablet 50 mcg PO DAILY #90 tabs 10/02/15 acetaminophen 500 mg capsule 1,000 mg (2 x 500 mg) PO Q8H PRN 08/07/21 PRN #90 caps ibuprofen 600 mg tablet 600 mg PO Q6H PRN pain #60 tabs 08/17/21 vitamin C 30 mg-zinc citrate 1.1 1 tab PO DAILY 03/28/22 mg-elderberry 25 mg chewable tablet flaxseed oil 1,000 mg capsule 1,000 mg PO DAILY 06/19/23 estradiol 0.05 mg-norethindrone 1 patch transdermal Q72H 30 days 10/19/24 0.14 mg/24 hr semiwkly transderm #8 ea patch (CombiPatch) magnesium glycinate 400 mg PO 12/21/24 vitamin D3 125 mcg (5,000 1 cap PO DAILY 12/21/24 unit)-vitamin K2 180 mcg capsule (K2-D3 Max) Current Visit Medications: Current Medications Generic Name Dose Route Start Last Admin Trade Name Freq PRN Reason Stop Dose Admin Ringer's Solution 1,000 mls @ 150 mls/hr 12/22/24 06:00 12/22/24 10:35 IV 12/22/24 23:59 150 mls/hr INFUSION RC Administration Acetaminophen 1,000 mg in 100 mls @ 400 mls/hr 12/22/24 06:00 Ofirmev IVPB 12/22/24 23:59 PREOP RC IV Miscellaneous Supplies 1 each 12/22/24 06:00 Iv Access IV 12/22/24 23:59 DIRECTED RC Sodium Chloride 0 ml 12/22/24 06:00 Normal Saline Flush 10 Ml Syr IV 12/22/24 23:59 PRN PRN Sodium Chloride 0 ml 12/22/24 06:00 Normal Saline 10 Ml Vial IJ 12/22/24 23:59 DIRECTED PRN Sterile Water 0 ml 12/22/24 06:00 Water,Injection,Sterile 10 Ml Vial IJ 12/22/24 23:59 DIRECTED PRN PFSH Active Problems Active Problems: Problem Status Onset Code Menopausal flushing Acute N95.1 Encounter for screening colonoscopy Acute Z12.11 Tendinitis of left quadriceps tendon Acute M76.892 Instability of internal left knee prosthesis Acute T84.023A Painful total knee replacement, left Acute T84.84XA, Z96.652 Lumbar paraspinal muscle spasm Acute M62.830 Acquired hypothyroidism Acute 12/19/15 E03.9 Anxiety Acute 12/19/15 F41.9 Rectocele Acute 05/20/17 N81.6 Uterine prolapse Acute 05/20/17 N81.4 Late insomnia Acute 12/19/15 F51.09 Panic attacks Acute 12/19/15 F41.0 Medical History Medical History Abnormal uterine bleeding (AUB) Uterine fibroid A-fib Medical History Comments:: Pt. has bad right shoulder-does not want right shoulder to be out-stretched. Surgical History Surgical History Hx of toe surgery (R) H/O foot surgery (R)-hardware in situ History of total knee arthroplasty History of total left knee replacement (08/07/21) S/P left knee arthroscopy H/O cardiac radiofrequency ablation last f/u with card 01/2021 Dr. Rader at [facility] section Tobacco Smoking/Tobacco Use Status: Never Passive smoking exposure: Yes Alcohol Alcohol Intake: current Alcohol intake frequency: holidays/special occasions only Alcohol type: beer, wine and hard liquor Substance Use Substance use: Occasionally Substance use type: marijuana Details: CBD Gummies, t-2. Prental History History 3 Para 3 Hx # Term Pregnancies Multiple births Hx # Pregnancies Ectopic pregnancies AB induced Hx Number of Living Children AB spontaneous Vital Signs and Lab Results Vital Signs Most Recent Vital Signs in EMR: Most Recent Vital Signs Temp Pulse Resp BP Pulse Ox 36.7 C 68 18 157/82 H 97 12/22/24 10:00 12/22/24 10:00 12/22/24 10:00 12/22/24 10:00 12/22/24 10:00 Lab Results Blood Type / Crossmatch: Antibody Screen NEGATIVE 12/21/24 Complete Blood Count: WBC, (4.4-10.8) 7.21 10^3/uL 12/21/24, 12:10 RBC, (3.93-5.22) 4.52 10^6/uL 12/21/24, 12:10 Hgb, (11.2-15.7) 13.5 g/dL 12/21/24, 12:10 Hct, (36.0-46.0) 39.8 % 12/21/24, 12:10 Plt Count, (130-400) 217 10^3/uL 12/21/24, 12:10 Imaging and Studies Imaging and Studies Study information below may be from another EMR and interpreted by another provider. Please see original notes in EMR for more complete details. EKG Summary: A fib rate 81 12/22/24 Echocardiogram Summary: 05/13/22 Conclusion Normal left ventricular wall thickness and chamber size. Estimated ejection fraction is 60 to 65%. Wall motion is normal Normal right ventricular size and systolic function Both atria are normal in size There is no structural or hemodynamically significant valvular disease Normal estimated right ventricular systolic pressure 27 mmHg Patient was in sinus rhythm throughout the study : LVEF 60-65%, mild 1.7 cm2, HANS 1.9 cm2, mild MR, PAS 36 mmhg Pulmonary Function Summary: 2018: FVC 90%, FEV1 89%. Anesthesia Assessment and Plan Anesthesia History Personal History: No History of Anesthesia Complications Family History: No Family History of Anesthesia Complications Exercise Tolerance Exercise Tolerance: Metabolic Equivalents>4 Pertinent Negatives Pertinent Negatives: No Symptoms of GERD, No Major Cardiovascular Symptoms or Complaints, No Major Pulmonary Symptoms or Complaints and No History of CVA/TIA Cardiac & Pulmonary Exam Cardiac Exam: Normal S1/S2 Heart Sounds Pulmonary Exam: Clear Bilateral Breath Sounds Implantable Cardiac Device Does patient have a Pacemaker or an ICD?: No Airway Exam Known Difficult Airway: No Mallampati Class: 2 Mouth Opening: Normal (> 3cm) Thyromental Distance: Greater than 3 cm Neck Range of Motion: Full ROM Neck Circumference: Normal Teeth Condition: Normal Dentition ASA Classification ASA Score: ASA 2 Emergency Case?: No NPO Status NPO Status: NPO Clears >2 hours, Solids >8 hours Anesthesia Plan Resuscitation Status: Full Code Anesthesia Technique: General Anesthesia Airway Planned: Natural Airway Monitors Used: Standard Monitors Preoperative Comments:: EKG ordered by surgeon due to elevated BP, patient in A-fib, rate 81, has hx of afib with ablation, will follow up with strap buckler.
[2024-12-22 12:06] VITALS: BMI 29.6
--- NOTE | 2024-12-22 12:59 | ROE_ITS ---
Operative Note Operative Note PRE-OP DIAGNOSIS: Postmenopausal bleeding; thickened endometrial stripe POST-OP DIAGNOSIS: same Endometrial and cervical polyps PROCEDURE: Hysteroscopic dilation and curettage SURGEON: Trang Ham ANESTHESIA TYPE: General:No Airway Refer to Anesthesia Record ESTIMATED BLOOD LOSS: 5 PATHOLOGY: other (Endometrial curettings; endometrial polyp) COMPLICATIONS: None Patient was transported to: PACU Patient's condition: stable Implants: None Indications: 59-year-old -0-0-3 ( x 3) presents for scheduled hysteroscopic dilation and curettage for postmenopausal bleeding while on HRT in the setting of persistently thickened endometrial stripe. Findings: Cervix is high with little descent; disfiguration of the cervix at the 10:00 portion suggestive of historical cervical laceration. Endometrial versus endocervical polyp extending from cervical os. Copious endometrial polyps Procedure Description: Patient was taken to the OR with IV fluids running. Antibiotic prophylaxis was not indicated. Anesthesia was established, and patient was positioned with her legs up in yellowfin stirrups into a modified dorsolithotomy position. Patient had urinated just prior to entering the OR. The vagina and pelvis were prepped with Betadine. A timeout was performed and the patient as well as procedure were confirmed. Side loading speculum was used to visualize the cervix from which a large, simple appearing polypoid structure was extending from the cervical os. A ring forcep was used to grasp the polyp, and the polyp was twisted in a clockwise fashion until it released. This polyp was sent separately for pathology. The anterior lip was then grasped with a single-tooth tenaculum. The cervix was progressively dilated up to a 16 mm [place] Edison dilator. The uterus sounded to 11 cm. Hysteroscopy revealed numerous and extensive polypoid structures all throughout the cavity, most notably in the lower uterine segment; pictures were taken and sent to the chart. Bilateral tubal os is were appreciated. Curettings were collected onto a Telfa and sent for pathology. Once sufficient curettings were acquired, the curettings were handed off. Single-tooth tenaculum was removed and good hemostasis was appreciated at the tenaculum sites. All instruments were then removed and the case was completed. Counts were correct x 2. Patient tolerated the procedure well and was taken to PACU in good condition. Date of Procedure: 12/22/24
[2024-12-22 13:02] VITALS: BP 144/73; PULSE 62; RESP 16; TEMP 35.8; O2SAT 97
[2024-12-22 13:36] VITALS: BP 160/83; PULSE 53; RESP 16; TEMP 36; O2SAT 100
--- NOTE | 2024-12-22 13:39 | W.ANESPOSTOP ---
Postoperative Evaluation Date, Time and Location Date Performed: 12/22/24 Time Performed: 13:40 Patient Location: PACU Vital Signs Most Recent Imported Vital Signs: Most Recent Vital Signs Temp Pulse Resp BP Pulse Ox 35.8 C L 62 16 144/73 H 97 12/22/24 13:02 12/22/24 13:02 12/22/24 13:02 12/22/24 13:02 12/22/24 13:02 Pain Score Most Recent Pain Score: Most Recent Pain Score Pain Level 0 12/22/24 10:00 Assessment Mental Status: Awake (Alert & Oriented to Patient Baseline) Airway and Respiratory Function: Patent airway with normal (patient baseline) respiratory exam Cardiovascular Function: Hemodynamically Stable Hydration Status: Adequately Hydrated Nausea & Vomiting: No Nausea or Vomiting Pain: Pt. Denies Any Pain Peripheral Nerve Block: Patient did not receive a nerve block Teaching Patient Teaching: Advised to seek followup for the following concerns (See explanation) (afib s/p ablation) Concerns: Other
== END 2024-12-22 14:04 | disposition home or self-care (01) ==
PROVIDERS: PCP Internal Medicine; Visit Provider Obstetrics & Gynecology
PROC: 0UDB8ZZ Extraction of Endometrium, Via Natural or Artificial Opening Endoscopic (ICD-10-PCS; CPT 58558; principal; 2024-12-22 10:45)
DX: N95.0 Postmenopausal bleeding (principal); R93.89 Abnormal findings on diagnostic imaging of other specified body structures; N84.1 Polyp of cervix uteri; I48.91 Unspecified atrial fibrillation; Z79.899 Other long term (current) drug therapy
CPT/HCPCS: 58558; 88305; 93005; 93010; J1100; J1885; J2003; J2405; J2704